=== PATIENT | female | born 1965 | race Caucasian/White ===

== ENCOUNTER 2024-03-10 17:58 | Emergency (ER) | payer OTHER, SELFPAY ==
--- NOTE | ~2024-03-10 | CT_ITS ---
EXAMINATION: CTA chest PE protocol DATE: 03/11/2024 02:12 INDICATION: Chest pain. Back pain. Shortness of breath. TECHNIQUE: Computed tomography angiography (CTA) of the chest was performed with 100 mL Omnipaque-350 intravenous contrast timed to evaluate the pulmonary arteries. Coronal maximum intensity projection 3D-reconstructions were created by the technologist. Automated exposure control and iterative reconst ruction technique were employed. The dose-length product was 372.81 mGy-cm. COMPARISON: CT abdomen and pelvis 01/01/2012 FINDINGS: There is scarring in the paramediastinal upper lobes and superior segments of the lower lob es. There are centrilobular nodules and tree-in-bud opacities in left upper lobe and left lower lobe, consistent with pneumonia. No pericardial effusion. There are nodules in the thyroid measuring up to 1.7 cm. The heart size is normal. No pericardial effusion. There are coronary artery calcifications. There is no pulmonary embolus. There is a small sliding hiatal hernia. There is a 1.6 cm hypodense m ass in the spleen. There is severe cervical spondylosis and moderate thoracic spondylosis. IMPRESSION: 1. Pneumonia involving left upper lobe and left lower lobe. 2. Thyroid nodules. Consider thyroid ultrasound for risk stratification. 3. 1.6 cm splenic mass, new from 01/01/12, which may be benign or malignant. Consider PET/CT. Reviewed, dictated and finalized at location A. BALL PLAYER IMPRESSION: 1. Pneumonia involving left upper lobe and left lower lobe. 2. Thyroid nodules. Consider thyroid ultrasound for risk stratification. 3. 1.6 cm splenic mass, new from 01/01/12, which may be benign or malignant. Co nsider PET/CT.
--- NOTE | ~2024-03-10 | XR_ITS ---
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 RESULT: Lines, tubes, and devices: Cholecystectomy clips. Lungs and pleura: Clear. Cardiomediastinal silhouette: Stable. Other: No acute osseous or upper abdominal finding. IMPRESSION: No acute cardiopulmonary process. Reviewed, dictated and finalized at location K. SIT PLANNING DIRECTOR
[2024-03-10 18:00] VITALS: BP 158/93; PULSE 113; RESP 20; TEMP 36.7; O2SAT 98
--- NOTE | 2024-03-10 18:00 | ECG_ITS ---
Test Date: 2024-03-10 18:17:33 Measurements Intervals Maribel Rate: 114 P: 51 IN: 165 QRS: 1 QRSD: 155 T: 90 QT: 367 QTc: 507 Interpretive Statements SINUS TACHYCARDIA LEFT BUNDLE BRANCH BLOCK [120+ ms QRS DURATION, 80+ ms Q/S IN V1/V2, 85+ ms R IN I/aVL/V5/V6] ABNORMAL ECG Electronically Signed On 03-11-2024 17:05:43 ENVIRONMENTAL TEST TECHNICIAN by Naif Goemz M.D.
--- NOTE | 2024-03-10 18:10 | ED_ITS ---
HPI - Chest Pain General Chief Complaint: Chest Pain <Kusum Brunson PA-C - Last Filed: 03/14/24 19:55> Stated Complaint: CP <Kusum Brunson PA-C - Last Filed: 03/14/24 19:55> Time Seen by Provider: 03/10/24 18:11 <Kusum Brunson PA-C - Last Filed: 03/14/24 19:55> Focused HPI: this is a 59-year-old female that presents to the emergency department for chest pain. Ongoing over the last hour. Reports substernal chest pain radiating into the left side of her chest. Reports shortness of breath. Reports she has been sick for a week and a half. Reports a cough. GENERAL: Uncomfortable, well-nourished, and in no acute distress. HEAD: Normocephalic, atraumatic. CHEST: No respiratory distress. HEART: Regular rate NEURO: ?Alert and oriented x3. Patient screened in triage and initial orders placed.? ?Additional care and disposition to be based upon?diagnostic testing and treatment. <Kusum Brunson PA-C - Last Filed: 03/14/24 19:55> Focused HPI: this is a 59-year-old female that presents to the emergency department for chest pain. Ongoing over the last hour. Reports substernal chest pain radiating into the left side of her chest. Reports shortness of breath. Reports she has been sick for a week and a half. Reports a cough. GENERAL: Uncomfortable, well-nourished, and in no acute distress. HEAD: Normocephalic, atraumatic. CHEST: No respiratory distress. HEART: Regular rate NEURO: ?Alert and oriented x3. Patient screened in triage and initial orders placed.? ?Additional care and disposition to be based upon?diagnostic testing and treatment. <AXEL Hoang Last Filed: 03/11/24 03:24> Source: patient <AXEL Hoang Last Filed: 03/11/24 03:24> Mode of arrival: ambulatory <AXEL Hoang Last Filed: 03/11/24 03:24> Limitations: no limitations <Kathy Garcia PA-C - Last Filed: 03/11/24 03:24> History of Present Illness HPI narrative: Agree with above HPI. Reports has been sick since 02/28. Reported chest pain was radiating into her back as well. States chest pain did not begin until today. Is resolved currently. Has been feeling short of breath, cough, congestion, no recent fevers since the beginning of her illness. Did report nausea and vomiting at the beginning of her illness as well, denies current nausea, denies abdominal pain. Patient reports she has not taken any of her normal medications and since she has been ill. History of CHF, LBBB. <Kathy Garcia PA-C - Last Filed: 03/11/24 03:24> Related Data Home Medications: Home Medications ?Medication ?Instructions ?Recorded ?Confirmed ?Last Taken ?Type aspirin 81 mg tablet,delayed 81 mg PO DAILY 08/27/21 02/29/24 Unknown History release atorvastatin 40 mg tablet 40 mg PO DAILY 08/27/21 02/29/24 Unknown History bupropion HCl 300 mg 24 hr tablet, 300 mg PO QAM 08/27/21 02/29/24 Unknown History extended release dapagliflozin propanediol 10 mg 10 mg PO DAILY 08/27/21 02/29/24 Unknown History tablet ergocalciferol (vitamin D2) 1,250 1,250 mcg PO WEEKLY 08/27/21 02/29/24 Unknown History mcg (50,000 unit) capsule isosorbide mononitrate 30 mg 30 mg PO DAILY 08/27/21 02/29/24 Unknown History tablet,extended release 24 hr losartan 50 mg tablet 50 mg PO DAILY 08/27/21 02/29/24 Unknown History metoprolol succinate 100 mg 100 mg PO DAILY 08/27/21 02/29/24 Unknown History tablet,extended release 24 hr ondansetron HCl 4 mg tablet 4 mg PO Q8H 08/27/21 02/29/24 Unknown History pantoprazole 40 mg tablet,delayed 40 mg PO QAM 08/27/21 02/29/24 Unknown History release spironolactone 25 mg tablet 25 mg PO DAILY 08/27/21 02/29/24 Unknown History valacyclovir 1 gram tablet 1,000 mg PO DAILY 08/27/21 02/29/24 Unknown History aspirin 81 mg tablet,delayed 81 mg PO DAILY 02/24/24 02/29/24 Unknown History release cetirizine 10 mg capsule (Zyrtec) 10 mg PO DAILY PRN 02/24/24 02/29/24 Unknown History divalproex 125 mg tablet,delayed 125 mg PO BID 02/24/24 02/29/24 Unknown History release (Depakote) vitamin B12 0.5 mg-folic acid 1 mg 1 tablet PO DAILY 02/24/24 02/29/24 Unknown History tablet <Kusum Brunson PA-C - Last Filed: 03/14/24 19:55> Allergies/Adverse Reactions: Allergies Allergy/AdvReac Type Severity Reaction Status Date / Time codeine Allergy Severe Vomiting Verified 02/24/24 12:56 hydrocodone Allergy Mild Vomiting Verified 02/24/24 12:56 Penicillins Allergy Unknown Unknown Verified 02/24/24 12:56 <Kusum Brunson PA-C - Last Filed: 03/14/24 19:55> Review of Systems 2 Review of Systems: All systems reviewed & are unremarkable except as noted in HPI. <Kathy Garcia PA-C - Last Filed: 03/11/24 03:24> All systems reviewed & are unremarkable except as noted in HPI and below < Kathy Garcia PA-C - Last Filed: 03/11/24 03:24> [facility] Past Medical History Medical History: Medical History Screening mammogram, encounter for Depression H/O thyroid nodule Umbilical hernia GERD (gastroesophageal reflux disease) Left bundle branch block IBS (irritable bowel syndrome) <Kusum Brunson PA-C - Last Filed: 03/14/24 19:55> Surgical History Surgical History: Surgical History Hx of cholecystectomy (~03/16/08) History of orthopedic surgery (09/10/12) History of gynecological procedure (01/02/14) dx laparoscopy / hysteroscopy D&C S/P tendon repair (02/06/14) History of orthopedic surgery shoulder surgery <AXEL Whitt Last Filed: 03/14/24 19:55> Family History Family History: Family History Mother Cerebrovascular accident Diabetes mellitus Hypertension Father Diabetes mellitus Heart disease <Kusum Brunson PA-C - Last Filed: 03/14/24 19:55> Social History Social History: Social History Smoking status: Former smoker Alcohol intake: never Substance use: never Substance use type: does not use Do You Feel Safe in your Home?: Yes Lack of Transportation: No Lack of Food: Never True Current Housing: I Have Housing Concerned About Future Housing: No Difficulty Paying Gas/Electric Bills: No Difficulty Paying for Meds: No Currently Unemployed: No Education: Associate Degree Difficulty w/ Childcare or Family Care: No Living arrangements: other Additional living arrangements comments: Occupation/Education: retired Gender identity (if verbalized by the patient): Female Sexual Orientation (if Verbalized by the Patient): Straight or Heterosexual <Kusum Brunson PA-C - Last Filed: 03/14/24 19:55> Exam 2 Narrative: GENERAL: Mildly ill appearing, well-nourished, non-toxic, in no acute distress. HEAD: Normocephalic, atraumatic. RESPIRATORY: Airway patent, respirations nonlabored. Frequent coughing on exam, scant rhonchi in bases bilaterally, worse on left lung. CARDIOVASCULAR: Tachycardic with regular rhythm, positive murmur. Peripheral pulses intact. ABDOMINAL: Soft, nontender, nondistended. Normoactive BS. MUSCULOSKELETAL: Moves all extremities. No gross deformities. SKIN: Warm, dry, normal color. NEURO: A&O X3. Speech clear. Cranial nerves II-XII grossly intact. Steady gait. No ataxic movements. PSYCHIATRIC: Appropriate mood and affect. Normal interaction. <Kathy Garcia PA-C - Last Filed: 03/11/24 03:24> Course PHOTOENGRAVING PRINTER/PA Physician Supervision For this patient encounter, I reviewed the PHOTOENGRAVING PRINTER or PA documentation, treatment plan, and medical decision making; and I had [id number] time with this patient. <Ariel Donis MD - Last Filed: 03/11/24 05:37> Vital Signs Vital signs: Vital Signs Temperature 98.1 F 03/10/24 18:00 Pulse Rate 113 H 03/10/24 18:00 Respiratory Rate 20 03/10/24 18:00 Blood Pressure 158/93 H 03/10/24 18:00 Pulse Oximetry 98 03/10/24 18:00 Oxygen Delivery Room Air 03/10/24 18:00 Temperature 98.9 F 03/11/24 02:06 Pulse Rate 73 03/11/24 02:06 Respiratory Rate 14 03/11/24 02:06 Blood Pressure 122/67 03/11/24 02:06 Pulse Oximetry 99 03/11/24 03:55 Oxygen Delivery Room Air 03/11/24 03:55 <Kusum Brunson PA-C - Last Filed: 03/14/24 19:55> Vital Signs Temperature 98.1 F 03/10/24 18:00 Pulse Rate 113 H 03/10/24 18:00 Respiratory Rate 20 03/10/24 18:00 Blood Pressure 158/93 H 03/10/24 18:00 Pulse Oximetry 98 03/10/24 18:00 Oxygen Delivery Room Air 03/10/24 18:00 Temperature 98.9 F 03/11/24 02:06 Pulse Rate 73 03/11/24 02:06 Respiratory Rate 14 03/11/24 02:06 Blood Pressure 122/67 03/11/24 02:06 Pulse Oximetry 99 03/11/24 03:55 Oxygen Delivery Room Air 03/11/24 03:55 <Kathy Garcia PA-C - Last Filed: 03/11/24 03:24> Vital Signs Temperature 98.1 F 03/10/24 18:00 Pulse Rate 113 H 03/10/24 18:00 Respiratory Rate 20 03/10/24 18:00 Blood Pressure 158/93 H 03/10/24 18:00 Pulse Oximetry 98 03/10/24 18:00 Oxygen Delivery Room Air 03/10/24 18:00 Temperature 98.9 F 03/11/24 02:06 Pulse Rate 73 03/11/24 02:06 Respiratory Rate 14 03/11/24 02:06 Blood Pressure 122/67 03/11/24 02:06 Pulse Oximetry 99 03/11/24 03:55 Oxygen Delivery Room Air 03/11/24 03:55 <Ariel Donis MD - Last Filed: 03/11/24 05:37> MDM - Chest Pain MDM Narrative Medical decision making narrative: Patient presented to ED with almost 2 history of URI, reporting persistent cough, shortness of breath, developed chest and back pain today. Chest pain currently resolved. Patient initially mildly tachycardic upon arrival. This was improved by the time of my evaluation. Fluids initiated. EKG with chronic left bundle-branch block. No significant ST changes otherwise. Patient does have known chronic LBBB, no records to compare to in our system however. Troponin is undetectable x2. BNP is within normal range. Chest x-ray is clear. CBC with white blood cell count of 13.2. Potassium slightly low at 3.1, oral replacement given. Magnesium is within normal range. Otherwise stable electrolytes and kidney function. Viral swabs are negative. CTA of chest was obtained to rule out PE or other cardiopulmonary abnormality. She does have Hx of PE r/t previous COVID 19. Not currently on anticoagulation. Care signed out to Dr. Donis at shift change pending STAT RAD CTA results. <Kathy Garcia PA-C - Last Filed: 03/11/24 03:24> Patient presented to ED with almost 2 history of URI, reporting persistent cough, shortness of breath, developed chest and back pain today. Chest pain currently resolved. Patient initially mildly tachycardic upon arrival. This was improved by the time of my evaluation. Fluids initiated. EKG with chronic left bundle-branch block. No significant ST changes otherwise. Patient does have known chronic LBBB, no records to compare to in our system however. Troponin is undetectable x2. BNP is within normal range. Chest x-ray is clear. CBC with white blood cell count of 13.2. Potassium slightly low at 3.1, oral replacement given. Magnesium is within normal range. Otherwise stable electrolytes and kidney function. Viral swabs are negative. CTA of chest was obtained to rule out PE or other cardiopulmonary abnormality. She does have Hx of PE r/t previous COVID 19. Not currently on anticoagulation. Care signed out to Dr. Donis at shift change pending STAT RAD CTA results. CTA showed no evidence of pulmonary embolism. There was evidence of atypical infection or aspiration patient does have some a thyroid nodules recommended follow-up with a thyroid ultrasound <Ariel Donis MD - Last Filed: 03/11/24 05:37> Medical Records Data Attestation: I reviewed the patient's medical records. <Kathy Garcia PA-C - Last Filed: 03/11/24 03:24> Lab Data Attestation: I reviewed the patient's lab results. <Kathy Garcia PA-C - Last Filed: 03/11/24 03:24> Result diagrams: 03/10/24 18:20 03/10/24 18:20 <Kusum Brunson PA-C - Last Filed: 03/14/24 19:55> Labs: Lab Results 03/10/24 03/10/24 Range/Units 18:20 22:57 WBC 13.2 H (4.5-10.0) K/mm3 RBC 4.37 (4.2-5.4) M/mm3 Hgb 12.8 (12.0-15.0) g/dL Hct 37.7 (37.0-47.0) % MCV 86.3 (80-100) fl MCH 29.3 (26-34) pg MCHC 34.0 (32-36) g/dl RDW 13.4 (11.5-14.5) % Plt Count 611 H (150-375) k/mm3 MPV 8.6 (7.4-10.4) fl Immature Gran % (Auto) 0.5 (0-0.5) % Neut % (Auto) 73.5 H (45.5-73.1) % Lymph % (Auto) 19.1 (18.3-44.2) % [place] % (Auto) 5.7 (2.6-8.5) % Eos % (Auto) 0.8 (0-4.4) % Baso % (Auto) 0.4 (0.2-1.2) % Lymph # (Auto) 2.52 (0.9-3.2) K/mm3 [place] # (Auto) 0.8 H (0.1-0.6) K/mm3 Eos # (Auto) 0.1 (0-0.3) K/mm3 Baso # (Auto) 0.1 (0.0-0.1) K/mm3 Abs Immat Gran (auto) 0.07 H (0.00-0.031) K/mm3 Absolute Neuts (auto) 9.7 H (1.3-6.7) K/mm3 Absolute Nucleated RBC 0.000 (0.0-0.012) K/mm3 Nucleated RBC % 0.0 (0.0-0.2) % PT 13.1 (11.1-14.7) Seconds INR 1.0 APTT 25.2 (22.3-36.8) Seconds Sodium 140 (137-145) mmol/L Potassium 3.1 L (3.4-5.0) mmol/L Chloride 108 H (98-107) mmol/L Carbon Dioxide 27 (22-30) mmol/L Anion Gap 5 (4-12) mmol/L BUN 13 (7-17) mg/dL Creatinine 0.60 L (0.7-1.0) mg/dL Estim Creat Clear Calc Not Reportable Estimated GFR > 60 (59 - ) Glucose 135 H (65-110) mg/dL Calcium 8.9 (8.4-10.2) mg/dL Magnesium 1.9 (1.6-2.3) mg/dL Total Bilirubin 0.3 (0.2-1.3) mg/dL AST 39 H (14-36) U/L ALT 32 (6-35) U/L Alkaline Phosphatase 90 (38-126) U/L Troponin I < 0.012 < 0.012 (0.000-0.034) ng/mL NT-Pro-B Natriuret Pep 169 H (19.9-100) pg/mL Total Protein 8.0 (6.3-8.2) g/dL Albumin 3.8 (3.5-5.1) g/dL Lipase 88 (23-300) U/L Influenza A (RT-PCR) Negative (Negative) Influenza B (RT-PCR) Negative (Negative) RSV (RT-PCR) Negative (Negative) SARS-CoV-2 RNA (RT-PCR) Negative (Negative) <Kusum Brunson PA-C - Last Filed: 03/14/24 19:55> Lab Results 03/10/24 03/10/24 Range/Units 18:20 22:57 WBC 13.2 H (4.5-10.0) K/mm3 RBC 4.37 (4.2-5.4) M/mm3 Hgb 12.8 (12.0-15.0) g/dL Hct 37.7 (37.0-47.0) % MCV 86.3 (80-100) fl MCH 29.3 (26-34) pg MCHC 34.0 (32-36) g/dl RDW 13.4 (11.5-14.5) % Plt Count 611 H (150-375) k/mm3 MPV 8.6 (7.4-10.4) fl Immature Gran % (Auto) 0.5 (0-0.5) % Neut % (Auto) 73.5 H (45.5-73.1) % Lymph % (Auto) 19.1 (18.3-44.2) % [place] % (Auto) 5.7 (2.6-8.5) % Eos % (Auto) 0.8 (0-4.4) % Baso % (Auto) 0.4 (0.2-1.2) % Lymph # (Auto) 2.52 (0.9-3.2) K/mm3 [place] # (Auto) 0.8 H (0.1-0.6) K/mm3 Eos # (Auto) 0.1 (0-0.3) K/mm3 Baso # (Auto) 0.1 (0.0-0.1) K/mm3 Abs Immat Gran (auto) 0.07 H (0.00-0.031) K/mm3 Absolute Neuts (auto) 9.7 H (1.3-6.7) K/mm3 Absolute Nucleated RBC 0.000 (0.0-0.012) K/mm3 Nucleated RBC % 0.0 (0.0-0.2) % PT 13.1 (11.1-14.7) Seconds INR 1.0 APTT 25.2 (22.3-36.8) Seconds Sodium 140 (137-145) mmol/L Potassium 3.1 L (3.4-5.0) mmol/L Chloride 108 H (98-107) mmol/L Carbon Dioxide 27 (22-30) mmol/L Anion Gap 5 (4-12) mmol/L BUN 13 (7-17) mg/dL Creatinine 0.60 L (0.7-1.0) mg/dL Estim Creat Clear Calc Not Reportable Estimated GFR > 60 (59 - ) Glucose 135 H (65-110) mg/dL Calcium 8.9 (8.4-10.2) mg/dL Magnesium 1.9 (1.6-2.3) mg/dL Total Bilirubin 0.3 (0.2-1.3) mg/dL AST 39 H (14-36) U/L ALT 32 (6-35) U/L Alkaline Phosphatase 90 (38-126) U/L Troponin I < 0.012 < 0.012 (0.000-0.034) ng/mL NT-Pro-B Natriuret Pep 169 H (19.9-100) pg/mL Total Protein 8.0 (6.3-8.2) g/dL Albumin 3.8 (3.5-5.1) g/dL Lipase 88 (23-300) U/L Influenza A (RT-PCR) Negative (Negative) Influenza B (RT-PCR) Negative (Negative) RSV (RT-PCR) Negative (Negative) SARS-CoV-2 RNA (RT-PCR) Negative (Negative) <Kathy Garcia PA-C - Last Filed: 03/11/24 03:24> Lab Results 03/10/24 03/10/24 Range/Units 18:20 22:57 WBC 13.2 H (4.5-10.0) K/mm3 RBC 4.37 (4.2-5.4) M/mm3 Hgb 12.8 (12.0-15.0) g/dL Hct 37.7 (37.0-47.0) % MCV 86.3 (80-100) fl MCH 29.3 (26-34) pg MCHC 34.0 (32-36) g/dl RDW 13.4 (11.5-14.5) % Plt Count 611 H (150-375) k/mm3 MPV 8.6 (7.4-10.4) fl Immature Gran % (Auto) 0.5 (0-0.5) % Neut % (Auto) 73.5 H (45.5-73.1) % Lymph % (Auto) 19.1 (18.3-44.2) % [place] % (Auto) 5.7 (2.6-8.5) % Eos % (Auto) 0.8 (0-4.4) % Baso % (Auto) 0.4 (0.2-1.2) % Lymph # (Auto) 2.52 (0.9-3.2) K/mm3 [place] # (Auto) 0.8 H (0.1-0.6) K/mm3 Eos # (Auto) 0.1 (0-0.3) K/mm3 Baso # (Auto) 0.1 (0.0-0.1) K/mm3 Abs Immat Gran (auto) 0.07 H (0.00-0.031) K/mm3 Absolute Neuts (auto) 9.7 H (1.3-6.7) K/mm3 Absolute Nucleated RBC 0.000 (0.0-0.012) K/mm3 Nucleated RBC % 0.0 (0.0-0.2) % PT 13.1 (11.1-14.7) Seconds INR 1.0 APTT 25.2 (22.3-36.8) Seconds Sodium 140 (137-145) mmol/L Potassium 3.1 L (3.4-5.0) mmol/L Chloride 108 H (98-107) mmol/L Carbon Dioxide 27 (22-30) mmol/L Anion Gap 5 (4-12) mmol/L BUN 13 (7-17) mg/dL Creatinine 0.60 L (0.7-1.0) mg/dL Estim Creat Clear Calc Not Reportable Estimated GFR > 60 (59 - ) Glucose 135 H (65-110) mg/dL Calcium 8.9 (8.4-10.2) mg/dL Magnesium 1.9 (1.6-2.3) mg/dL Total Bilirubin 0.3 (0.2-1.3) mg/dL AST 39 H (14-36) U/L ALT 32 (6-35) U/L Alkaline Phosphatase 90 (38-126) U/L Troponin I < 0.012 < 0.012 (0.000-0.034) ng/mL NT-Pro-B Natriuret Pep 169 H (19.9-100) pg/mL Total Protein 8.0 (6.3-8.2) g/dL Albumin 3.8 (3.5-5.1) g/dL Lipase 88 (23-300) U/L Influenza A (RT-PCR) Negative (Negative) Influenza B (RT-PCR) Negative (Negative) RSV (RT-PCR) Negative (Negative) SARS-CoV-2 RNA (RT-PCR) Negative (Negative) <Ariel Donis MD - Last Filed: 03/11/24 05:37> Imaging Data Attestation: I personally reviewed and interpreted this imaging study as follows: < Kathy Garcia PA-C - Last Filed: 03/11/24 03:24> Radiologist's impression: ITS Impressions Chest X-Ray 03/10/24 18:37 IMPRESSION: No acute cardiopulmonary process. Chest CTA 03/11/24 06:02 IMPRESSION: 1. Pneumonia involving left upper lobe and left lower lobe. 2. Thyroid nodules. Consider thyroid ultrasound for risk stratification. 3. 1.6 cm splenic mass, new from 01/01/12, which may be benign or malignant. Consider PET/CT. <Kusum Brunson PA-C - Last Filed: 03/14/24 19:55> ECG Data EKG #1: Attestation: I personally reviewed and interpreted this ECG as follows: <Kathy Garcia PA-C - Last Filed: 03/11/24 03:24> ECG completion date: 03/10/24 <Kathy Garcia PA-C - Last Filed: 03/11/24 03:24> ECG completion time: 18:17 <Kathy Garcia PA-C - Last Filed: 03/11/24 03:24> EKG Interpretation: tachycardia (114), sinus rhythm, non-specific ST changes and LBBB < Kathy Garcia PA-C - Last Filed: 03/11/24 03:24> Critical Care Time Critical Care Time Critical Care Time: No <Kusum Brunson PA-C - Last Filed: 03/14/24 19:55> Discharge Plan Discharge Clinical Impression: Atypical chest pain, Thyroid nodule Upper respiratory infection Qualifiers: URI type: unspecified URI Qualified Code(s): J06.9 - Acute upper respiratory infection, unspecified (Ruled Out): Dysuria <Kusum Brunson PA-C - Last Filed: 03/14/24 19:55> Patient Disposition: Home, Self-Care <AXEL Whitt Last Filed: 03/14/24 19:55> Condition: Stable <AXEL Whitt Last Filed: 03/14/24 19:55> Instructions: Antibiotic Form, Chest Pain (ED), Upper Respiratory Infection (ED), Cold Symptoms (ED) <Kusum Brunson PA-C - Last Filed: 03/14/24 19:55> Additional Instructions: Take antibiotics as prescribed. Stay well-hydrated at home. Recommend electrolyte rich fluids, Gatorade, Pedialyte, body armor. Zofran as needed for nausea. Tessalon Perles as needed for cough. Tylenol and Ibuprofen for discomfort and/or fevers. Recommend xoth-sjb-guxbzyr cough and cold medicines for symptom relief, Delsym, Mucinex, DayQuil, NyQuil, Sudafed, Robitussin, TheraFlu. Follow with primary care doctor upon resolution of symptoms. Return to the ED if you experience chest pain, difficulty breathing, unable to keep down food or drink, severe pain, or any other symptoms of concern. The CT scan showed that you have a thyroid nodule it is recommended you follow- up with your primary care provider as they may need to do a thyroid ultrasound at some point in the near future <AXEL Whitt Last Filed: 03/14/24 19:55> Patient Language: Andorran <AXEL Whitt Last Filed: 03/14/24 19:55> Prescriptions: New benzonatate 200 mg capsule 200 mg PO TID PRN (Reason: cough) Qty: 15 0RF doxycycline monohydrate 100 mg tablet 100 mg PO BID 7 Days Qty: 14 0RF ondansetron 4 mg tablet,disintegrating 4 mg PO Q8H PRN (Reason: nausea and vomiting) Qty: 15 0RF No Action losartan 50 mg tablet 50 mg PO DAILY atorvastatin 40 mg tablet 40 mg PO DAILY valacyclovir 1 gram tablet 1,000 mg PO DAILY ondansetron HCl 4 mg tablet 4 mg PO Q8H isosorbide mononitrate 30 mg tablet extended release 24 hr 30 mg PO DAILY metoprolol succinate 100 mg tablet extended release 24 hr 100 mg PO DAILY aspirin 81 mg tablet,delayed release (DR/EC) 81 mg PO DAILY spironolactone 25 mg tablet 25 mg PO DAILY pantoprazole 40 mg tablet,delayed release (DR/EC) 40 mg PO QAM ergocalciferol (vitamin D2) 1,250 mcg (50,000 unit) capsule 1,250 mcg PO WEEKLY bupropion HCl 300 mg tablet extended release 24 hr 300 mg PO QAM dapagliflozin propanediol 10 mg tablet 10 mg PO DAILY divalproex [Depakote] 125 mg tablet,delayed release (DR/EC) 125 mg PO BID Zyrtec 10 mg capsule 10 mg PO DAILY PRN vitamin [id number] acid 0.5-1 mg tablet 1 tablet PO DAILY aspirin 81 mg tablet,delayed release (DR/EC) 81 mg PO DAILY <Kusum Brunson PA-C - Last Filed: 03/14/24 19:55> Follow-up/Referrals: Marlena,Newton Molina MD [Primary Care Provider] - <Kusum Brunson PA-C - Last Filed: 03/14/24 19:55> Time of Disposition: 05:40 <Kusum Brunson PA-C - Last Filed: 03/14/24 19:55> 05:40 <Kathy Garcia PA-C - Last Filed: 03/11/24 03:24> 05:40 <Ariel Donis MD - Last Filed: 03/11/24 05:37> Sign Out Sign Out Data: Patient Sign Out occurred on 03/11/24 at 04:06. Patient's care was discussed, and care was transferred from Kathy Garcia PA-C to Ariel Donis MD. <Kusum Brunson PA-C - Last Filed: 03/14/24 19:55> Quality HEART score for chest pain patients History: moderately suspicious <Kathy Garcia PA-C - Last Filed: 03/11/24 03:24> ECG: non specific repolarization disturbance/LBTB/PM <AYANA Hoang - Last Filed: 03/11/24 03:24> Age: > 45 and < 65 years <Kathy Garcia PA-C - Last Filed: 03/11/24 03:24> Risk factors: 1 or 2 risk factors <Kathy Garcia PA-C - Last Filed: 03/11/24 03:24> Troponin: < or = to 1x normal limit <Kathy Garcia PA-C - Last Filed: 03/11/24 03:24> Heart score: 4 <Kusum Brunson PA-C - Last Filed: 03/14/24 19:55> 4 <Kathy Garcia PA-C - Last Filed: 03/11/24 03:24> 4 <Ariel Donis MD - Last Filed: 03/11/24 05:37>
[2024-03-10] MEDS: ASPIRIN 81 MG CHEWABLE TABLET 324 MG PO (18:13)
[2024-03-10 18:28] LABS: Basophils Absolute Auto 0.1 K/mm3 (0.0-0.1); Basophils Percent Auto 0.4 % (0.2-1.2); Eosinophils Absolute Auto 0.1 K/mm3 (0-0.3); Eosinophils Percent Auto 0.8 % (0-4.4); Hematocrit 37.7 % (37.0-47.0); Hemoglobin 12.8 g/dL (12.0-15.0); Immature Granulocyte Absolute 0.07 K/mm3 (0.00-0.031); Immature Granulocyte Percent A 0.5 % (0-0.5); Lymphocytes Absolute Auto 2.52 K/mm3 (0.9-3.2); Lymphocytes Percent Auto 19.1 % (18.3-44.2); Mean Corpuscular Hemoglobin 29.3 pg (26-34); Mean Corpuscular Volume 86.3 fl (80-100); Mean Platelet Volume 8.6 fl (7.4-10.4); Monocytes Absolute Auto 0.8 K/mm3 (0.1-0.6); Monocytes Percent Auto 5.7 % (2.6-8.5); Neutrophils Absolute Auto 9.7 K/mm3 (1.3-6.7); Neutrophils Percent Auto 73.5 % (45.5-73.1); Platelet Count Result 611 k/mm3 (150-375); Red Blood Count 4.37 M/mm3 (4.2-5.4); Red Cell Distribution Width 13.4 % (11.5-14.5); White Blood Count 13.2 K/mm3 (4.5-10.0)
[2024-03-10 18:40] LABS: Alanine Aminotransferase 32 U/L (6-35); Albumin Level 3.8 g/dL (3.5-5.1); Alkaline Phosphatase 90 U/L (38-126); Anion Gap 5 mmol/L (4-12); Aspartate Amino Transferase 39 U/L (14-36); Bilirubin,Total 0.3 mg/dL (0.2-1.3); Blood Urea Nitrogen 13 mg/dL (7-17); Calcium 8.9 mg/dL (8.4-10.2); Carbon Dioxide 27 mmol/L (22-30); Chloride 108 mmol/L (98-107); Estimated Glomerular Filt Rate > 60; Glucose 135 mg/dL (65-110); Lipase 88 U/L (23-300); Potassium 3.1 mmol/L (3.4-5.0); Sodium 140 mmol/L (137-145)
[2024-03-10 18:44] LABS: Partial Thromboplastin Time 25.2 Seconds (22.3-36.8); Prothrombin Time 13.1 Seconds (11.1-14.7)
[2024-03-10 18:51] LABS: NT Pro B Type Natriuretic Pept 169 pg/mL (19.9-100); Troponin I < 0.012 ng/mL (0.000-0.034)
[2024-03-10 19:04] LABS: Influenza A QL RT-PCR Negative (Negative); Influenza B QL RT-PCR Negative (Negative); RSV RNA, RT-PCR Negative (Negative); SARS-CoV-2 RNA PCR Negative (Negative)
--- NOTE | 2024-03-10 22:57 | ECG_ITS ---
Test Date: 2024-03-10 22:57:57 Measurements Intervals [place] Rate: 100 P: 55 MO: 167 QRS: -2 QRSD: 158 T: 96 QT: 396 QTc: 512 Interpretive Statements SINUS TACHYCARDIA LEFT BUNDLE BRANCH BLOCK [120+ ms QRS DURATION, 80+ ms Q/S IN V1/V2, 85+ ms R IN I/aVL/V5/V6] Compared to ECG 03/10/2024 18:17:33 No significant changes Electronically Signed On 03-11-2024 17:14:18 [employer] by Naif Gomez M.D.
[2024-03-10 23:25] LABS: Troponin I < 0.012 ng/mL (0.000-0.034)
[2024-03-11 01:55] LABS: Magnesium 1.9 mg/dL (1.6-2.3)
[2024-03-11] MEDS: POTASSIUM CHLORIDE 20 MEQ ER TABLET 40 MEQ PO (01:56)
[2024-03-11] MEDS: SODIUM CHLORIDE 0.9% IV 1,000 ML 999 ML IV CONT (01:58)
[2024-03-11 02:06] VITALS: BP 122/67; PULSE 73; RESP 14; TEMP 37.2; O2SAT 100
[2024-03-11] MEDS: BENZONATATE 100 MG CAPSULE 200 MG PO (03:14)
[2024-03-11 03:55] VITALS: O2SAT 99
--- OUTSIDE RECORDS SUMMARY | 2024-03-18 04:57 | XMS_ITS | Clinical Summary ---
Author Organization [facility] Address [address] [place] [address] Phone Care Team Providers Care Making Department Preparer Name Role Phone Newton Mendiola MD Primary Care Provider [phone] Allergies Active Allergy Reactions Criticality Noted Date Comments Codeine Vomiting 07/22/2017 Penicillins Unknown 07/22/2017 Medications rizatriptan (MAXALT-[employer] ENGINEER) 10 MG TABLET DISPERSIBLE Take 10 mg by mouth once as needed. Active Aspirin 81 MG Tablet Take 81 mg by mouth daily. Active pantoprazole (PROTONIX) 40 MG Tablet Delayed Response Take 40 mg by mouth daily. Active metoprolol Succinate (TOPROL-XL) 25 MG TABLET SR 24 HR Take 25 mg by mouth daily. Active losartan (COZAAR) 25 MG Tablet Take 25 mg by mouth daily. Active buPROPion (WELLBUTRIN) 300 MG TABLET SR 24 HR XL tablet Take 300 mg by mouth every morning. Active furosemide (LASIX) 20 MG Tablet Take 1 Tab by mouth daily. 30 Tab 07/22/2017 Active spironolactone (ALDACTONE) 25 MG Tablet Take 1 Tab by mouth daily. 90 Tab 07/22/2017 Active Active Problems Problem Noted Date Diagnosed Date Acute chest pain 07/22/2017 Left bundle branch block 07/22/2017 Chronic systolic (congestive) heart failure 11/2017 Hodgkin's disease in remission 07/22/2017 Gastroesophageal reflux disease without esophagi tis 07/22/2017 Pure hypercholesterolemia 07/22/2017 Family History Medical History Relation Name Comments Congestive Heart Failure Father Diabetes Father Heart Attack Father Hypertension Father Diabetes Mother Hypertension Mother Stroke Mother Relation Name Status Comments Father Mother Social History Tobacco Use Types Packs/Day Years Used Date Smoking Tobacco: Former Cigarettes 0.5 12 Smokeless Tobacco: Never Alcohol Use Standard Drinks/Week Comments No 0 (1 standard drink = 0.6 oz pur e alcohol) Comments No Sex and Gender Information Value Date Recorded Sex Assigned at Not on file Legal Sex Female 2:49 AM CDT Gender Identity Not on file Sexual Orientation Not on file Last Filed Vital Signs Vital Sign Reading Time Taken Comments Blood Pressure 107/57 07/22/2017 7:18 AM CDT Pulse 75 07/22/2017 7:18 AM CDT Temperature 35.6 ??C (96.1 ??F) 07/22/2017 7:18 AM CD T Respiratory Rate 16 07/22/2017 7:18 AM CDT Oxygen Saturation 98% 07/22/2017 7:10 AM CDT Inhaled Oxygen Concentration - - Weight 83.1 kg (183 lb 3.2 oz) 07/22/2017 5:00 A M CDT Height 162.6 cm (5' 4 ) 07/22/2017 2:54 AM CDT Body Mass Index 31.45 07/22/2017 2:54 AM CDT Plan of Treatment Health Maintenance Due Date Last Done Comments Hepatitis C Virus (HCV) Screening 1965 TdaP Immunization 1965 SARS-COV-2 Immunization (#1) 1970 Pneumococcal Immunization Co mbined (1 of 2 - PCV) 1971 Hepatitis B Immunization (1 of 3 - 19+ 3-dose series) 01/17/1984 Zoster Immunization (1 of 2) 01/17/1984 Pap Smear 1986 Cervical Cancer Screening (CCS) 1995 HPV/Cotest 1995 Colonoscopy 2010 Colorectal Cancer Screening 2010 Cologuard 2015 Immunochemical Fecal Occult Blood 2015 Mammogram 2015 Influenza Immunization (Seas on Ended) 2023 Meningococcal Immunization (ACWY) Aged Out No longer eligible based on patient's age to complete this topic Rotavirus Immunization Aged Out No lo nger eligible based on patient's age to complete this topic Advance Directives * Full Code (Latest Code Status on File) Date Activated Date Inactivated Comments 07/22/2017 4:47 AM 07/22/2017 4:51 PM CPR-Full Treat ment: FULL ARREST: Attempt Resuscitation/CPR wit intubation and mechanical ventilation. PRE-ARREST: Use entire range of life support measures to stabilize the patient. Care Teams Making Department Preparer Relationship Specialty Start Date End Date Newton Mendiola MD PCP - General Internal Medicine 07/22/17
--- OUTSIDE RECORDS SUMMARY | 2024-03-18 04:57 | XMS_ITS | Referral Summary ---
Author Organization [facility] Address [address] [place] [address] Care Team Providers Care Aircraft Systems Technician Name Role Phone Newton Mendiola MD Primary Care Provider [phone] Sly Cade MD Unavailable [phone] Encounters Date Type Department Care Team Description 03/11/2024 Orders Only [facility] [address] [place] [address] Newton Mendiola MD 03/10/2024 Orders Only [facility] [address] [place] [address] Newton Mendiola MD 12/17/2023 2:15 PM CDT Office Visit [facility] [address] [place] [place] [phone] Faith Burroughs NP Acute middle ear effusion, right (Primary Dx) from Last 3 Months Allergies Active Allergy Reactions Criticality Noted Date Comments Codeine Other (See comments),Vomiting Low 07/22/2017 Reaction: RASH;, Sacubitril-Valsartan Nausea & Vomiting,Fatigue Low 03/02/2023 Hydrocodone Vomiting Low 02/19/2018 Penicillin Other (See comments) Low Reaction: UNKNOWN, Medications aspirin 81 mg tablet Take 1 tablet (81 mg total) by mouth daily Active cyanocobalamin, vitamin B-12, (VITAMIN B-12 ORAL) Take by mouth daily Active cetirizine (ZyrTEC) 10 mg tablet Take 1 tablet (10 mg total) by mouth daily Active ergocalciferol (VITAMIN D) 50,000 unit capsule TAKE 1 CAPSULE (50,000 UNITS TOTAL) BY MOUTH ONCE A WEEK FRIDAYS 12 capsule 1 3 Active losartan (COZAAR) 50 mg tablet Take 1 tablet (50 mg total) by mouth daily 90 tablet [address] (PROTONIX) 40 mg EC tablet TAKE 1 TABLET BY MOUTH EVERY DAY 90 tablet 4 3 Active spironolactone (ALDACTONE) 25 mg tablet TAKE 1 TABLET BY MOUTH EVERY DAY 90 tablet 3 4 Active metoprolol XL (TOPROL-XL) 100 mg 24 hr tablet TAKE 1 TABLET BY MOUTH EVERY DAY 90 tablet 3 4 Active atorvastatin (LIPITOR) 40 mg tablet Take 1 tablet (40 mg total) by mouth nightly 90 tablet 1 4 Active ondansetron (ZOFRAN) 4 mg tablet Take 1 tablet (4 mg total) by mouth every 8 (eight) hours as needed for nausea or vomiting 20 tablet [address] (DEPAKOTE) 125 mg EC tablet Take 1 tablet (125 mg total) by mouth 2 (two) times a day 180 tablet 1 4 Active Farxiga 10 mg tablet TAKE 1 TABLET BY MOUTH EVERY DAY 90 tablet 2 4 Active buPROPion XL (WELLBUTRIN XL) 300 mg 24 hr tablet TAKE 1 TABLET (300 MG TOTAL) BY MOUTH EVERY MORNING. 90 tablet 4 Active methylPREDNISol one (Medrol, Andres,) 4 mg DosepackIndicat ions:Acute middle ear effusion, right follow package directions 1 packet 4 Active fluticasone propionate (FLONASE) 50 mcg/actuation nasal sprayIndication s:Acute middle ear effusion, right Administer 2 sprays into each nostril daily 3 each 4 Active valACYclovir (VALTREX) 1 gram tablet TAKE 2 TABLETS BY MOUTH EVERY 12 HOURS FOR 1 DAY 12 tablet 1 4 Active Hospital, Clinic, or Other Facility Administered Medication Ordered Dose Route Frequency Start Date End Date Status perflutren protein-a (OPTISON) 3 mL in sodium chloride 0.9% 8 mL syringe 1 - 8 mL IV Once in imaging 09/19/2022 Active Active Problems Problem Noted Date Diagnosed Date Night sweats 12/09/2023 Assessment & Plan (12/09/2023 2:47 PM CDT): Check chest x-ray. Neck pain 12/09/2023 Assessment & Plan (12/09/2023 2:47 PM CDT): Check x-ray. Thyroid nodule 08/28/2023 Assessment & Plan (12/09/2023 2:47 PM CDT): Last ultrasound showed no change. 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 Assessment & Plan (01/17/2021 1:16 PM CDT): Likely embolic Allergic rhinitis 12/11/2020 Assessment & Plan (12/11/2020 3:17 PM CDT): Blood allergy testing - call with results CT sinus - call with results Flonase 2 sprays into each nostril while looking down over the sink, do not sniff in or blow nose after use for at least 30 minutes daily Switching to Cetirizine 10 mg daily (Zyrtec) Consider adding Pepcid if CT sinus clear Type 2 diabetes mellitus wit hout complication, without long-term current use of insulin ([facility]) 11/22/2020 Assessment & Plan (12/09/2023 2:47 PM CDT): A1c improved. Assessment & Plan (08/28/2023 11:17 AM CDT): Labs today Is going to resume her 0.25mg Ozempic weekly per Cardiology A1C 7% Assessment & Plan (08/27/2021 12:30 PM CDT): A1C stable at 6.2% If on 10mg Farxiga Assessment & Plan (11/22/2020 12:11 PM CDT): A1C 6.2% today Reviewed A1C meaning and goal with patient today, hand out provided with her info entered RD referral, briefly reviewed diet today Encouraged small amounts of activity and slowly building up as able Start metformin ER 500mg daily x 1-2 weeks then increase to 1000mg ER daily Recheck in 3 mo LV dysfunction 10/28/2018 LBBB (left bundle branch block) 10/28/2018 Mixed hyperlipidemia 10/28/2018 Assessment & Plan (12/09/2023 2:47 PM CDT): Stable. On lipid lowering medication Assessment & Plan (08/28/2023 11:18 AM CDT): Reviewed today, TC 148 LDL 90 TRG 103 HDL 37 Assessment & Plan (11/22/2020 12:12 PM CDT): Reviewed today, elevated Strong FHx and personal Hx of cardiomyopathy Trial atorvastatin 10 mg daily-recheck in 3 mo with A1C and CMP Activity as able, A1C control Chronic insomnia 10/28/2018 Chronic systolic (congestive) heart failure 11/2017 Gastroesophageal reflux disease without esophagi tis 07/22/2017 Cardiomyopathy 09/09/2016 Assessment & Plan (12/09/2023 2:47 PM CDT): Doing well follows with Cardiology Hypertension 09/09/2016 Assessment & Plan (12/09/2023 2:47 PM CDT): BP at target Assessment & Plan (01/15/2021 9:36 AM CDT): -Home regimen: Losartan 50mg daily, Metoprolol 100mg daily, Isosorbide 30mg daily and Spironolactone 25mg daily. -Held home Lisinopril and spironolactone while inpatient 2/2 normotension -Continue Metoprolol and Isosorbide -Q4 hrs VS Snoring 09/09/2016 Systolic dysfunction 09/09/2016 Insomnia 09/09/2016 Obesity with body mass index 30 or greater 07/31 Resolved Problems Problem Noted Date Diagnosed Date Resolved Date Laceration of right little f daniella, initial encounter 10/10/2021 08/28/2023 Overview (10/10/2021): Added automatically from request for surgery [id number] Abdominal pain 08/27/2021 08/28/2023 Assessment & Plan (08/27/2021 12:30 PM CDT): Labs, EGD/COLO COVID-19 virus infection 01/15/2021 Assessment & Plan (01/15/2021 9:38 AM CDT): Presented with recent COVID-19 infection (12/29/20) -Remained in COVID unit throughout this admission Hypokalemia 01/15/2021 08/27/2021 Assessment & Plan (01/15/2021 9:55 AM CDT): Patient with hypokalemia this admission -Potassium replaced -PCP follow-up at discharge for BMP check Left lower quadrant pain 01/14/2021 Assessment & Plan (01/15/2021 9:25 AM CDT): Pt recent COVID-19 infection (12/29/20) presents with LUQ pain x 1 day, prompting her to visit OSH ED on 01/10/2021. CT PE protocol demonstrated a dissection flap vs thrombus in the descending aorta just distal to the aortic isthmus, and a large exophytic mass off the spleen concern for infarct vs growth. Patient was ransferred to [facility] ED for further management by Vascular Surgery. On arrival to the ED palpable femoral, radial pulses, bilateral DP/PT multiphasic. Sensorimotor intact in all 4 extremities. -The patient was continued on hep gtt -Repeat CTA (01/13/21) with decrease in size of aortic clot as well as a splenic infarct -Stopped Hep gtt this morning. Transitioned to PO Eliquis Lesion of right ear 11/22/2020 08/28/19 22 Assessment & Plan (11/22/2020 12:13 PM CDT): Derm referral Grief at loss of child 11/22/202008/27 Assessment & Plan (11/22/2020 12:14 PM CDT): Strongly encouraged grief counseling Chest pain 05/20/2020 11/22/2020 Pure hypercholesterolemia 07/22/2017 Gasping for breath 09/09/2016 Hodgkin lymphoma 09/09/2016 11/22/2020 Elbow pain 09/01/2016 11/22/2020 Lateral epicondylitis of right elbow 09/01/2016 11/22/2020 Abnormal electrocardiography 07/21/2016 11/22/2020 Acute chest pain 07/21/2016 11/22/2020 Dyspnea on exertion 07/21/2016 11/23/19 21 Left bundle branch block 07/17/201611/2020 Abdominal pain, left lower quadrant 03/07/2011 11/22/2020 Immunizations Name Administration Dates Next Due Influenza, Trivalent, IM (MDV) 01/10/2014 Tdap 04/25/2023 Social History Tobacco Use Types Packs/Day Years Used Date Smoking Tobacco: Former Cigarettes 0.5 10 1 990 - 2000 Smokeless Tobacco: Never Tobacco Cessation:Counseling Given: Not Answered Alcohol Use Standard Drinks/Week Comments No 0 (1 standard drink = 0.6 oz pur e alcohol) Social Connection and Isolation Panel [NHANES] A nswer Date Recorded Frequency of Communication with Friends and Fami ly Not on file 2021 Frequency of Social Gatherings with Friends and Family Not on file 2021 Attends Hoahaoism Services Not on file 01/16 Active Member of Clubs or Organizations Not on f ile 2021 Attends Club or Organization Meetings Not on liliam e 2021 Are you , , di vorced, , never , or living with a partner? 2021 AUDIT-C Answer Date Recorded Q1: How often do you have a drink containing alcohol? Never 10/03/2021 Q2: How many drinks containi ng alcohol do you have on a typical day when you are drinking? Patient does not drink Q3: How often do you have si x or more drinks on one occasion? Never 10/03/2021 Overall Financial Resource Strain (CARDIA) Answe r Date Recorded How hard is it for you to pa y for the very basics like food, housing, medical care, and heating? Not very hard 2021 Hunger Vital Sign Answer Date Recorded Within the past 12 months, y ou worried that your food would run out before you got the money to buy more. Never true 01/17/20 21 Within the past 12 months, t he food you bought just didn't last and you didn't have money to get more. Never true 2021 PRAPARE - Transportation Answer Date Re corded In the past 12 months, has l ack of transportation kept you from medical appointments or from getting medications? No 05/2020 In the past 12 months, has l ack of transportation kept you from meetings, work, or from getting things needed for daily living? No 2021 Housing Stability Vital Sign Answer Robert e Recorded In the last 12 months, was t here a time when you were not able to pay the mortgage or rent on time? No 2021 In the last 12 months, how many places have you lived? 1 2021 In the last 12 months, was t here a time when you did not have a steady place to sleep or slept in a senior living (including now)? No 2021 Comments No Sex and Gender Information Value Date Recorded Sex Assigned at Not on file Legal Sex Female 7:55 AM FIELD CANE SCALE CLERK Gender Identity Not on file Sexual Orientation Not on file Last Filed Vital Signs Vital Sign Reading Time Taken Comments Blood Pressure 122/80 12/17/2023 2:23 PM CDT Pulse 69 12/17/2023 2:23 PM CDT Temperature 37 ??C (98.6 ??F) 12/17/2023 2:23 PM CDT Respiratory Rate 16 12/17/2023 2:23 PM CDT Oxygen Saturation 98% 12/17/2023 2:23 PM CDT Inhaled Oxygen Concentration - - Weight 79.4 kg (175 lb) 12/17/2023 2:23 PM CDT Height 162.6 cm (5' 4 ) 12/17/2023 2:23 PM CDT Body Mass Index 30.04 12/17/2023 2:23 PM CDT Plan of Treatment Scheduled Procedures Name Priority Associated Diagnoses Date/Ti me ESOPHAGOGASTRODUODENOSCOPY Nausea Colon cancer screening COLONOSCOPY Nausea Colon cancer screening Procedures Procedure Name Priority Date/Time Associated Diagnosis Comments SCAN - LABS 03/11/2024 8:48 AM FIELD CANE SCALE CLERK SCAN - RADIOLOGY/IMAGING 03/11/2024 6:22 AM FIELD CANE SCALE CLERK SCAN - LABS 03/11/2024 2:10 AM FIELD CANE SCALE CLERK SCAN - LABS 03/10/2024 10:15 PM FIELD CANE SCALE CLERK SCAN - LABS 03/10/2024 10:15 PM FIELD CANE SCALE CLERK SCAN - RADIOLOGY/IMAGING 03/10/2024 6:46 PM FIELD CANE SCALE CLERK POCT HEMOGLOBIN A1C Routine 12/09/2023 2 :02 PM CDT Type 2 diabetes mellitus without complication, without long-term current use of insulin (CMS/HCC) (HCC) ALBUMIN CREATININE RATIO, URINE Routine 08/28/2023 11:36 AM CDT Type 2 diabetes mellitus without complication, without long-term current use of insulin (CMS/HCC) (HCC) COMPREHENSIVE METABOLIC PANEL Routine 08/28/2023 11:29 AM CDT Type 2 diabetes mellitus without complication, without long-term current use of insulin ([facility]/HCC) (HCC) POCT LIPID PANEL Routine 08/28/2023 10:4 1 AM CDT Mixed hyperlipidemia Type 2 diabetes mellitus without complication, without long-term current use of insulin ([facility]/HCC) (HCC) COLONOSCOPY 10/03/2021 3:08 PM CDT from Last 3 Months or Most Recently Relevant to Health Maintenance Results * SCAN - LABS (03/11/2024 8:48 AM FIELD CANE SCALE CLERK) Result Jessee Mendiola MD Final Result * SCAN - RADIOLOGY/IMAGING (03/11/2024 6:22 AM FIELD CANE SCALE CLERK) Anatomical Region Laterality Modality Other Result Jessee Mendiola MD Final Result * SCAN - LABS (03/11/2024 2:10 AM FIELD CANE SCALE CLERK) us Newton Mendiola MD Final Result * SCAN - LABS (03/10/2024 10:15 PM FIELD CANE SCALE CLERK) Result Jessee Mendiola MD Final Result * SCAN - LABS (03/10/2024 10:15 PM FIELD CANE SCALE CLERK) Result Jessee Mendiola MD Final Result * SCAN - RADIOLOGY/IMAGING (03/10/2024 6:46 PM FIELD CANE SCALE CLERK) Anatomical Region Laterality Modality Other Result Jessee Mendiola MD Final Result * (ABNORMAL) POCT hemoglobin A1c (12/09/2023 2:02 PM CDT) Hemoglobin A1C, POC 6.3 4.0 - 5.6 % Blood 12/09/2023 2:02 PM CDT Result Jessee Mendiola MD POINT OF CARE TEST ORDERABLES Final Result * Albumin Creatinine Ratio, Urine (08/28/2023 11:36 AM CDT) Creatinine ur 50.0 Not Estab. mg/dL [facility] - 01 Microalbumin, ur 3.5 Not Estab. ug/mL [facility] - 01 Microalbumin/cre at ratio 7 0 - 29 mg/g creat [facility] - 01 Comment: ? Normal: ?0 - ??29 ? Moderately increased: 30 - 300 ? Severely increased: ? >300 Urine 08/28/2023 11:3 6 AM CDT 08/28/2023 Narrative [facility] - 08/29/2023 8:15 AM CDT Performed at: ??01 - [facility] [address], [place], [place] ??[id number] Clinical Documentation Manager: Vernon Connell PhD, Phone: ??[phone] us Vicky Donaldson DEPUTY CHIEF COUNSEL LAB URINE ORDERABLES Fin al Result [facility] - 01 * (ABNORMAL) Comprehensive metabolic panel (08/28/2023 11:29 AM CDT) Glucose 119(H) 70 - 99 mg/dL [facility] - 01 BUN 16 6 - 24 mg/dL [facility] - 01 Creatinine, Serum 0.82 0.57 - 1.00 mg/dL [facility] - 01 eGFR 83 >59 mL/min/1.7 3 [facility] - 01 BUN/creat ratio 20 9 - 23 [facility] - 01 Sodium 142 134 - 144 mmol/L [facility] - 01 Potassium, sr 4.1 3.5 - 5.2 mmol/L [facility] - 01 Chloride 107(H) 96 - 106 mmol/L [facility] - 01 CO2 19(L) 20 - 29 mmol/L [facility] - 01 Calcium 9.8 8.7 - 10.2 mg/dL [facility] - 01 Protein, sr 7.0 6.0 - 8.5 g/dL [facility] - 01 Albumin 4.3 3.8 - 4.9 g/dL [facility] - 01 Globulin, Total 2.7 1.5 - 4.5 g/dL [facility] - 01 A/G Ratio 1.6 [facility] - 01 Bilirubin, Total 0.2 0.0 - 1.2 mg/dL [facility] - 01 Alk phos 94 44 - 121 IU/L [facility] - 01 AST 17 0 - 40 IU/L [facility] - 01 ALT 18 0 - 32 IU/L [facility] - 01 Blood 08/28/2023 11:2 9 AM CDT 08/28/2023 Narrative [facility] - 08/29/2023 8:15 AM CDT Performed at: ?? - [facility] [address] ??[id number] Clinical Documentation Manager: Vernon Connell PhD, Phone: ??[phone] Vicky Donaldson NP LAB BLOOD ORDERABLES Fin al Result [facility] - 01 * POCT lipid panel (08/28/2023 10:41 AM CDT) HDL, POC 37 mg/dL Triglycerides, POC 103 mg/dL LDL Cholesterol POC 90 mg/dL Chol/HDL Ratio, POC 4 Non-HDL Cholesterol, POC 111 mg/dL Cholesterol Total, POC 148 mg/dL Capillary blood 08/28/2023 1 0:41 AM CDT Vicky Donaldson NP POINT OF CARE TEST ORDER FRANCISCO Final Result * COLONOSCOPY (10/03/2021 3:08 PM CDT) Anatomical Region Laterality Modality Other Narrative Procedure Note Brunilda Arzola MD - 10/03/2021 3:08 PM CDT [facility] Patient Name: Katy Sauceda Procedure Date: 10/03/2021 3:08 PM Date of : 1965 Admit Type: Outpatient Age: 56 Gender: Female Attending MD: Brunilda Arzola M.D. Room: [facility] ENDOSCOPY ROOM 3 Note Status: Finalized Procedure: Colonoscopy Indications: Screening for colorectal malignant neoplasm Referring MD: Douglas Simmons.N.Jorje. Providers: Brunilda Arzola M.D. Medicines: Monitored Anesthesia Care Complications: No immediate complications. Estimated blood loss: Minimal. Estimated Blood Loss: Estimated blood loss was minimal. Procedure: Pre-Anesthesia Assessment: - Immediately prior to administration ofmedications, the patient was re-assessed for adequacy to receive sedatives. - The risks and benefits of the procedure and the sedation options and risks were discussed with the patient. All questions were answered and informed consent was obtained. The benefits, risks and alternatives of theprocedure and sedation were discussed and informed consentwas obtained. All questions were answered. Please referto the signed informed consent document in the medical record. The scope was passed under direct vision.The CF [id number] endoscope was introduced through the anus and advanced to the cecum, identified by appendiceal orifice and ileocecal valve. The colonoscopy was performed without difficulty. The patient tolerated the procedure well. The qualityof the bowel preparation was excellent. The bowel preparation used was Miralax via single dose instruction. Findings: The perianal and digital rectal examinations were normal. A 2 mm polyp was found in the hepatic flexure. The polyp was sessile. The polyp was removed with a jumbo cold forceps. Resection andretrieval were complete. Two sessile polyps were found in the splenic flexure. The polyps were2 mm in size. These polyps were removed with a jumbo cold forceps. Resection and retrieval were complete. A 2 mm polyp was found in the descending colon. The polyp wassessile. The polyp was removed with a jumbo cold forceps. Resection andretrieval were complete. The retroflexed view of the distal rectum and anal verge was normaland showed no anal or rectal abnormalities. The exam was otherwise without abnormality. Impression: - One 2 mm polyp at the hepatic flexure, removedwith a jumbo cold forceps. Resected and retrieved. - Two 2 mm polyps at the splenic flexure, removedwith a jumbo cold forceps. Resected and retrieved. - One 2 mm polyp in the descending colon, removedwith a jumbo cold forceps. Resected and retrieved. - The distal rectum and anal verge are normal on retroflexion view. - The examination was otherwise normal. Recommendation: - Await pathology results. - A polyp or polyps were removed during your colonoscopy today. After the pathology result ofthe polyp(s)? ? ?is reviewed, the doctor who performedyour colonoscopy will recommend follow-up colonoscopy to you based on current guidelines by gastroenterology societies: - If only small hyperplastic polyps from the rectumor sigmoid were removed, repeat the colonoscopy in 10 years. - If 1 or 2? ? ?polyps less than 1 cm in size are adenomas, repeat the colonoscopy in 5 years. - If 3 or more polyps are adenomas, repeat the colonoscopy in 3 years. - If there are 10 or more adenomas, repeat the colonoscopy in 1 year. - If any polyp is 10 mm or greater in size, has villous histology or high grade dysplasia,repeat? ? ?the colonoscopy in 3 years. - If a polyp greater than 2 cm was removed with a piecemeal technique, repeat the colonoscopy in 6 months to be certain that there is no residualpolyp. - Sessile serrated polyps are treated like adenomas for surveillance purposes. Electronically signed by Brunilda Arzola MD Brunilda Arzola M.D. 10/03/2021 3:54:22 PM . Number of Addenda: 0 Note Initiated On: 10/03/2021 3:08 PM Recognized by the [employer] for promoting quality in endoscopy Brunilda Arzola MD ENDOSCOPY PROCEDURES Final Re sult from Last 3 Months or Most Recently Relevant to Health Maintenance Insurance [facility] [place] [address] [facility] Advance Directives For more information, please contact: [phone] * Full Code (Latest Code Status on File) Date Activated Date Inactivated Comments 10/03/2021 1:58 PM 10/03/2021 8:24 PM * Full Code Date Activated Date Inactivated Comments 01/11/2021 3:56 PM 01/15/2021 4:01 PM * Full Code Date Activated Date Inactivated Comments 05/20/2020 5:54 PM 05/21/2020 8:50 PM Care Teams Aircraft Systems Technician Relationship Specialty Start Date End Date Newton Mendiola MD [id number] [place] [address] PCP - General 06/09/16 Sly Cade MD [address] [facility] [address] [place] [address] Referring Physician Cardiology 12/07/18
--- OUTSIDE RECORDS SUMMARY | 2024-03-18 04:57 | XMS_ITS | Encounter Summary ---
Author Organization [facility] Address [address] [place] [address] Care Team Providers Care Retail Chain Store Area Supervisor Name Role Phone Newton Mendiola MD Primary Care Provider [phone] Reason for Visit * Reason Comments Pain Tailbone c/o tailbone pain s/ p accident at [facility], pt was in an intertube and sts she injured her tailbone at the bottom of the hill, sts she was in the tube the whole time, There was a dip and then a hump, I hit my tailbone directly against the hump Encounter Details Date Type Department Care Team (Late st Contact Info) Description 04/23/2019 4:25 PM DIETETIC AIDE - 04/23/2019 7:19 PM DIETETIC AIDE Emergency ER at [facility] [id number] [place] [address] Eduardo Robbins, PA-C [id number] [place] [address] Fall, initial encounter; Contusion of coccyx, initial encounter Discharge Disposition: Home or Self Care Social History Tobacco Use Types Packs/Day Years Used Date Smoking Tobacco: Never Smokeless Tobacco: Never Alcohol Use Standard Drinks/Week Comments Yes 0 (1 standard drink = 0.6 oz pur e alcohol) rar Sex and Gender Information Value Date Recorded Sex Assigned at Not on file Gender Identity Not on file Sexual Orientation Not on file documented as of this encounter Last Filed Vital Signs Vital Sign Reading Time Taken Comments Blood Pressure 143/67 04/23/2019 6:30 PM DIETETIC AIDE Pulse 96 04/23/2019 4:23 PM DIETETIC AIDE Temperature 36.6 ??C (97.8 ??F) 04/23/2019 4:23 PM CS T Respiratory Rate 20 04/23/2019 4:23 PM DIETETIC AIDE Oxygen Saturation 100% 04/23/2019 6:30 PM DIETETIC AIDE Inhaled Oxygen Concentration - - Weight 88.9 kg (196 lb) 04/23/2019 4:23 PM DIETETIC AIDE Height 162.6 cm (5' 4 ) 04/23/2019 4:23 PM DIETETIC AIDE Body Mass Index 33.64 04/23/2019 4:23 PM DIETETIC AIDE documented in this encounter Discharge Instructions * Discharge Instructions* Eduardo Robbins PA-C - 04/23/2019 6:44 PM DIETETIC AIDE - Do not drive or operate machinery while taking Flexeril/cyclobenzaprine. - Do not take other NSAIDs including ibuprofen, Motrin, Aleve, naproxen, Mobic while taking meloxicam ETIC AIDE * Attachments The following attachments cannot be sent through Care Everywhere. * Contusion in Adults (AfterCare(R) Instructions(ER/ED)) (Danish) * Coccyx Injury (AfterCare(R) Instructions(ER/ED)) (Danish) documented in this encounter Medications at Time of Discharge Medication Sig Dispensed Refills Start Date End Date acyclovir (ZOVIRAX) 5 % cream 09/13/2018 aspirin (ASPIRIN) 81 MG tablet Take 81 mg by mouth once daily buPROPion XL 24hr (WELLBUTRIN-XL) 300 MG tablet Take 300 mg by mouth once daily 08/19/2017 escitalopram (LEXAPRO) 5 MG tablet Take 5 mg by mouth once daily 12/31/2017 fluticasone propionate (FLONASE) 50 MCG/ACT nasal spray daily. 07/09/2016 hydrocodone-acetaminophe n (NORCO) 5-325 MG tablet Take 1 Tab by mouth every 6 hours as needed for Pain. 8 Tab 0 03/07/2011 isosorbide mononitrate CR 24hr (IMDUR) 30 MG tablet TAKE 1 TABLET BY MOUTH EVERY DAY 03/25/2018 losartan (COZAAR) 25 MG tablet Take 25 mg by mouth once daily meloxicam (MOBIC) 15 MG tablet Take 1 tablet by mouth once daily 10 tablet 04/23/2019 metoprolol succinate XL 24hr (TOPROL XL) 25 MG tablet Take 25 mg by mouth once daily omeprazole (PRILOSEC) 20 MG capsule Take 20 mg by mouth once daily as needed. pantoprazole EC (PROTONIX) 40 MG tablet Take 40 mg by mouth once daily 08/09/2017 promethazine (PHENERGAN) 25 MG tablet Take 1 Tab by mouth every 6 hours as needed for Nausea/Vomiting. 10 Tab 0 03/07/2011 rizatriptan (MAXALT) 10 MG tablet TAKE 1 TABLET AT ONSET OF HEADACHE. MAY REPEAT EVERY 2 HOURS NEEDED. MAXIMUM 3 TABLETS IN 24 HOURS. 07/09/2016 cyclobenzaprine (FLEXERIL) 10 MG tablet Take 1 tablet by mouth 3 times daily as needed for Muscle Spasms 21 tablet 04/23/2019 04/30/2019 documented as of this encounter ED Notes * Eduardo Robbins PA-C - 04/23/2019 6:32 PM CST M Emergency Department Note History of Present Illness CC: Pain Tailbone (c/o tailbone pain s/p accident at [facility], pt was in an intertube and sts she injured her tailbone at the bottom of the hill, sts she was in the tube the whole time, There was a dip and then a hump, I hit my tailbone directly against the hump ) HPI: Katy Sauceda is a 54 year old female who presents with significant past medical history ofGERD, Hodgkin's disease, left bundle branch block presents to the emergency department with 2 hr onset of tailbone buttock pain. Patient reports that she was riding down a ski slope on an inter tube when she got to the bottom hit a patch of dirt .patient notes at that time she bottomed out on the inner tube striking her tailbone on the ground. Patient denies being thrown off of the inner to hitting head loss of consciousness or other injury. Patient denies loss her change in bowel or bladder. Patient reports immediately following the incident she was able to get and walked to the 1st aid station. Patient presents to the emergency department with 8/10 lower sacral/coccyx sharp stabbing pain worse with direct touch with radiation into the right buttock. Patient denies associated numbness weakness back pain extremity pain or other infectious/constitutional symptoms Treatments initiated by patient: none Relevant Medical History Past Medical History: has a past medical history of GERD (gastroesophageal reflux disease), Hodgkindisease, and LBBB (left bundle branch block). Negative unless noted above Past Surgical History: has a past surgical history that includes cholecystectomy. Negative unless noted above Med List: No current facility-administered medications on file prior to encounter. Current Outpatient Medications on File Prior to Encounter Medication Sig Dispense Refill ??? hydrocodone-acetaminophen (NORCO) 5-325 MG tablet Take 1 Tab by mouth every 6 hours as needed for Pain. 8 Tab 0 ??? omeprazole (PRILOSEC) 20 MG capsule Take 20 mg by mouth once daily as needed. ??? promethazine (PHENERGAN) 25 MG tablet Take 1 Tab by mouth every 6 hours as needed for Nausea/Vomiting. 10 Tab 0 Med list reviewed and attached to chart Allergies: Allergies Allergen Reactions ??? Codeine Excessive Vomiting ??? Hydrocodone Itching and Nausea and/or Vomiting ??? Pcn [Penicillins] Reaction during surgery, not sure of reaction. Immunizations: There is no immunization history on file for this patient. Not applicable unless noted above Family Hx: No family history on file. Negative unless noted above Social Hx: Social History Socioeconomic History ??? Marital status: Spouse name: Not on file ??? Number of children: Not on file ??? Years of education: Not on file ??? Highest education level: Not on file Occupational History ??? Not on file Tobacco Use ??? Smoking status: Never Smoker ??? Smokeless tobacco: Never Used Substance and Sexual Activity ??? Alcohol use: Yes ??? Drug use: No ??? Sexual activity: Not on file Other Topics Concern ??? Not on file Social History Narrative ??? Not on file History source:Patient, nursing notes, and EMS notes when applicable, unless noted above Hx/PE/ROS limited by: ? Review of Systems Constitutional: No fevers or chills, Eye/ENT/Mouth: No visual changes, no epistaxis or sore throat Cardiovascular: no palpitations, no chest pain Respiratory: no stridor, no shortness of breath Gastrointestinal: No nausea, vomiting or diarrhea Genitourinary: No dysuria, no hematuria Skin: No acute rashes or edema Musculoskeletal: No acute joint swelling or decreased range of motion Neurological: No headache, no new numbness Psychiatric: No mood changes Initial GCS: 15 Physical Exam Constitutional: well developed, well nourished, no acute distress Eye: normal conjunctiva, pupils equal and reactive, EOMI, no orbital step offs bilat, no periocularttp or ecchymosis/edema ENT/Mouth: external ears clear, oral pharynx no swelling or exudates, facial bones non tender, no mastoid, or periauricular ttp, ecchymosis or edema No hemotympanum bilateral, no nasal septal hematoma, no oral trauma, Neck: Cspine- no midline ttp,pt demonstrated full range of motion with flexion, extension, and rotation without resistance or pain, no immobilization CV: regular rate and rhythm, no murmurs/rubs or gallops Chest: no clavicular ttp bilat, no rib ttp bilateral Respiratory: clear to auscultation bilaterally no wheezes/rhonchi/crackles GI: abdomen soft/ nondistended no masses noted, no bruising noted, non ridged, nontender x 4 quadrants, bowel sounds present, no organomegaly or palpable masses : deferred Skin: dry, no rashes noted, no lacerations Musculoskeletal/Back: no ttp x 4 ext, there is no obvious deformity, ecchymosis, lesions, there is no ttp to midline T or L spine - [id number] tenderness to palpation to the coccyx and right buttock there is no obvious deformity ecchymosis edema or erythema. Patient has a negative straight leg raise, nontender midline lumbar spine. Extremities: No cyanosis, no edema. DP pulses 2+ bilateral Neurological: CN II-XII no deficits, upper and lower extremity strength 5/5 bilateral Psych: Pt is alert and oriented x3 w good recall and normal affect Studies and Interpretation VS: Patient Vitals for the past 24 hrs: Temp Pulse Resp BP SpO2 04/23/19 1715 -- -- -- -- 97 % 04/23/19 1700 -- -- -- 117/61 94 % 04/23/19 1645 -- -- -- -- 99 % 04/23/19 1623 97.8 ??F (36.6 ??C) 96 20 118/89 100 % Vitals reviewed: WNL Pulse Ox Interpretation: Saturation: 97 Oxygen Delivery: Room air Interpretation: No hypoxia at this time. Rhythm strip interpretation: Normal sinus rhythm, no arrhythmia noted. Ventricular rate (bpm):96 Pertinent Labs: Labs Reviewed - No data to display Images: XR SACRUM AND COCCYX Final Result Examination: Sacrum and coccyx 5 views INDICATION: Unspecified fall, initial encounter . Injury. Fell. Coccygeal pain. Tailbone pain.. FINDINGS: No fracture can be identified on the current plain films.. . If the patient's symptoms persist or worsen, please consider a scheduled outpatient higher level imaging study to exclude an occult process. IMPRESSION Negative for fracture at this time.. Please see above discussion. Reading Radiologist: Yordan Guardado MD on 04/23/2019 at 6:12 PM All imaging independently reviewed by Eduardo Robbins PA-C. Medical Decision Making and ED Course Differential Dx: DDx includes:closed head injury, skull fracture, intracranial hemorrhage, facial bones fracture, cervical spine fracture, dislocation, cord compression, cervical radiculopathy, bluntchest trauma, pneumothorax, hemothorax,cardiac tamponade,spinal fracture blunt abdominal trauma, hollow organ perforation, solid organ laceration, vascular injury,extremity trauma, fracture, dislocation, sprain, contusion, laceration Management: Management options include but not limited to : IV access and IV medications given. Case discussed with ED attending physician/MARY: Data reviewed: All current, pertinent and timely studies (laboratory, imaging, and procedures) wereordered and results reviewed by Eduardo Robbins PA-C unless otherwise noted. Triage notes and available nursing notes reviewed. Previous medical record reviewed when available. Repeat vital signs reviewed. PCP: No primary care provider on file. Plan:, labs, imaging, symptom control, consult Medications administered in triage: ED COURSE ED Course as of Apr 23 1836 Sat Apr 23, 2019 1806 Nurse notified me that the patient has refused her [place] [NS] ED Course User Index [NS] Eduardo Robbins PA-C Clinical Impressions as of Apr 23 1836 Fall, initial encounter MDM:The patient presents to the emergency department with with 2 hr onset of tailbone buttock pain.Patient reports that she was riding down a ski slope on an inter tube when she got to the bottom hit a patch of dirt .patient notes at that time she bottomed out on the inner tube striking her tailbone on the ground. Patient denies being thrown off of the inner to hitting head loss of consciousnessor other injury. Patient denies loss her change in bowel or bladder. Patient reports immediately following the incident she was able to get and walked to the 1st aid station. Patient presents to the emergency department with 8/10 lower sacral/coccyx sharp stabbing pain worse with direct touch with r adiation into the right buttock. -the patient is hemodynamically stable, with normal vitals without fever or tachycardia. -on physical exam the patient is found to have neurovascularly intact without gross or focal neurological deficits. On exam found to [id number] tenderness to palpation to the coccyx and right buttock there is no obvious deformity ecchymosis edema or erythema. Patient has a negative straight leg raise, nontender midline lumbar spine. -Imaging shows no acute osseous abnormality or fracture. -patient is ambulatory in the emergency department. - given the patient, age, presentation, negative ER workup, normal vitals, lack of concerning neurologic symptoms with improvement in symptoms with conservative measures, it is reasonable to discharge the patient home with Flexeril, meloxicam, and close fu to PCP and Ortho in 1 week is sxs not improved with conservative treatment And strict return precautions. I have spent considerable time counseling the patient on the nature of their pain/symptoms, their results, what to expect and how to manage their symptoms. I have also given my typical strict return precautions and let them know that are always welcome to call or return to the ED if their symptoms are not improving or they develop new or progressive symptoms. I ensured understanding of the instructions utilizing teach-back. All questions and concerns presented at the time of discharge were answered. Dispo: home Clinical Impression: 1. contusion of coccyx Note: This note was created with the aid of dictation software, thus there may be some word substitutions or errors. ETIC AIDE * Yahaira Gonzalez RN - 04/23/2019 4:25 PM CST Bed: 19 Expected date: Expected time: Means of arrival: Comments: Chrissie Laureano7 54F tailbone injury while intertubing at [place] [facility] 50 mcg of fentanyl given, eta 20 min ETIC AIDE documented in this encounter Plan of Treatment Not on file documented as of this encounter Procedures Procedure Name Priority Date/Time Associated Diagnosis Comments XR SACRUM AND COCCYX STAT 04/23/2019 5:39 PM DIETETIC AIDE Fall, initial encounter documented in this encounter Results * XR SACRUM AND COCCYX (04/23/2019 5:39 PM DIETETIC AIDE) Anatomical Region Laterality Modality Spine Radiographic Fabiola ging 04/23/2019 6:11 PM DIETETIC AIDE Impressions 04/23/2019 6:12 PM DIETETIC AIDE Negative for fracture at this time.. ?? Please see above discussion. Reading Radiologist: Yordan Guardado MD on 04/23/2019 at 6:12 PM Narrative 04/23/2019 6:12 PM DIETETIC AIDE Examination: Sacrum and coccyx 5 views INDICATION: Unspecified fall, initial encounter . ??Injury. ??Fell. Coccygeal pain. ??Tailbone pain.. FINDINGS: ??No fracture can be identified on the current plain films.. . If the patient's symptoms persist or worsen, please consider a scheduled outpatient higher level imaging study to exclude an occult process. Procedure Note Yordan Guardado MD - 04/23/2019 Examination: Sacrum and coccyx 5 views INDICATION: Unspecified fall, initial encounter . Injury. Fell. Coccygeal pain. Tailbone pain.. FINDINGS: No fracture can be identified on the current plain films.. . If the patient's symptoms persist or worsen, please consider a scheduled outpatient higher level imaging study to exclude an occult process. IMPRESSION Negative for fracture at this time.. Please see above discussion. Reading Radiologist: Yordan Guardado MD on 04/23/2019 at 6:12 PM Eduardo Robbins PA-C DIAGNOSTIC IMAGING ORDERABLES documented in this encounter Visit Diagnoses Diagnosis Fall, initial encounter Contusion of coccyx, initial encounter documented in this encounter Administered Medications Inactive Administered Medications - up to 3 most recent administrations Medication Order MAR Action Action Date Dose Rate Site acetaminophen (TYLENOL) tablet 1,000 mg 1,000 mg, Oral, NOW, 1 dose, On 04/23/19 at 1830 $ Given 04/23/2019 7:12 PM DIETETIC AIDE 1,000 mg ondansetron (ZOFRAN) injection 4 mg 4 mg, Intravenous, NOW, 1 dose, On 04/23/19 at 1645, Administer over 2 to 5 minutes. $ Given 04/23/2019 4:37 PM DIETETIC AIDE 4 mg ondansetron (ZOFRAN) injection ADS Med 1 dose, Starting on 04/23/19 at 1633, Until 04/23/19 at 1637, Created by cabinet override documented in this encounter Active and Recently Administered Medications Times are shown in DIETETIC AIDE. Scheduled Medication Order 04/21/2019 04/22/2019 04/23/2019 acetaminophen (TYLENOL) tablet 1,000 mg (COMPLETED) 1,000 mg, Oral, NOW, 1 dose, On 04/23/19 at 1830 1912 ($ Given - Prov ider: Albania Cameron RN) HYDROcodone-acetaminophen (NORCO) 5-325 MG tablet 1 tablet 1 tablet, Oral, NOW, 1 dose, On 04/23/19 at 1745 1749 (Not Administer ed - Provider: Yahaira Gonzalez RN - Reason: Refused-Patient) ondansetron (ZOFRAN) injection 4 mg (COMPLETED) 4 mg, Intravenous, NOW, 1 dose, On 04/23/19 at 1645, Administer over 2 to 5 minutes. 1637 ($ Given - Prov ider: Yahaira Gonzalez, ESAU) documented in this encounter Care Teams [employer] Area Supervisor Relationship Specialty Start Date End Date Newton Mendiola MD PCP - General Internal Medicine 04/23/19 documented as of this encounter
--- OUTSIDE RECORDS SUMMARY | 2024-03-18 04:57 | XMS_ITS | Clinical Summary ---
Author Organization [email or web address] Address [address] [place] [address] Care Team Providers Care Plumbing And Heating Contractor Name Role Phone Newton Mendiola MD Primary Care Provider [phone] Source Comments [facility],non-owned Affiliates and Associated Physician Practices is amultiple site organization consisting of ambulatory clinics and hospital sitesin [place], [place], [place] and [place]. This disclosure is being madepursuant to the Care Everywhere program and may not contain all information available regarding this patient. Last updated 17.[facility] Allergies Active Allergy Reactions Criticality Noted Date Comments Codeine 03/07/2011 Excessive Vomiting Hydrocodone Itching,Nausea and/o r Vomiting 04/23/2019 Penicillins 03/07/2011 Reaction during surgery, not sure of reaction. Medications * Be aware that medications may not be up to date on this document. Alwaysverify current medications with the patient. Medication Sig Dispensed Refills Start Date End Date Status omeprazole (PRILOSEC) 20 MG capsule Take 20 mg by mouth once daily as needed. Active hydrocodone-acetamino phen (NORCO) 5-325 MG tablet Take 1 Tab by mouth every 6 hours as needed for Pain. 8 Tab 0 03/07/2011 Active promethazine (PHENERGAN) 25 MG tablet Take 1 Tab by mouth every 6 hours as needed for Nausea/Vomiting. 10 Tab 0 03/07/2011 Active meloxicam (MOBIC) 15 MG tablet Take 1 tablet by mouth once daily 10 tablet 04/23/2019 Active acyclovir (ZOVIRAX) 5 % cream 09/13/2018 Active aspirin (ASPIRIN) 81 MG tablet Take 81 mg by mouth once daily Active buPROPion XL 24hr (WELLBUTRIN-XL) 300 MG tablet Take 300 mg by mouth once daily 08/19/2017 Active escitalopram (LEXAPRO) 5 MG tablet Take 5 mg by mouth once daily 12/31/2017 Active fluticasone propionate (FLONASE) 50 MCG/ACT nasal spray daily. 07/09/2016 Active isosorbide mononitrate CR 24hr (IMDUR) 30 MG tablet TAKE 1 TABLET BY MOUTH EVERY DAY 03/25/2018 Active losartan (COZAAR) 25 MG tablet Take 25 mg by mouth once daily Active metoprolol succinate XL 24hr (TOPROL XL) 25 MG tablet Take 25 mg by mouth once daily Active pantoprazole EC (PROTONIX) 40 MG tablet Take 40 mg by mouth once daily 08/09/2017 Active rizatriptan (MAXALT) 10 MG tablet TAKE 1 TABLET AT ONSET OF HEADACHE. MAY REPEAT EVERY 2 HOURS NEEDED. MAXIMUM 3 TABLETS IN 24 HOURS. 07/09/2016 Active Active Problems Problem Noted Date Diagnosed Date Abdominal pain, left lower quadrant 03/07/2011 Social History Tobacco Use Types Packs/Day Years [...] Comments Blood Pressure 143/67 04/23/2019 6:30 PM PALLIATIVE CARE COORDINATOR Pulse 96 04/23/2019 4:23 PM PALLIATIVE CARE COORDINATOR Temperature 36.6 ??C (97.8 ??F) 04/23/2019 4:23 PM CS T Respiratory Rate 20 04/23/2019 4:23 PM PALLIATIVE CARE COORDINATOR Oxygen Saturation 100% 04/23/2019 6:30 PM PALLIATIVE CARE COORDINATOR Inhaled Oxygen Concentration - - Weight 88.9 kg (196 lb) 04/23/2019 4:23 PM PALLIATIVE CARE COORDINATOR Height 162.6 cm (5' 4 ) 04/23/2019 4:23 PM PALLIATIVE CARE COORDINATOR Body Mass Index 33.64 04/23/2019 4:23 PM PALLIATIVE CARE COORDINATOR Plan of Treatment Health Maintenance Due Date Last Done Comments COLOGUARD (AGES 45-75) - COL ON CA SCREENING 1965 COLON MONITORING 1965 COLONOSCOPY - COLON CA SCREENING 1965 CT COLONOGRAPHY - COLON CA SCREENING 1965 Colorectal Cancer Screening 1965 FIT - COLON CA SCREENING 1965 FLEX SIG - COLON CA SCREENING 1965 LIPID TESTING 1965 MAMMOGRAM 1965 PAP SMEAR 1965 HIV SCREENING 01/17/1980 HEPATITIS C SCREENING 01/12/1983 DTAP/TDAP/TD VACCINES (1 - Tdap) 01/17/1984 HEPATITIS B VACCINE (1 of 3 - 19+ 3-dose series) 01/17/1984 ZOSTER VACCINE (1 of 2) 2015 DEPRESSION SCREENING 03/16/2023 COVID-19 VACCINE (1 - 2023-2 5 season) 2023 INFLUENZA VACCINE (#1) 2023 01/10/2014 HIB VACCINE Aged Out No longer eligi ble based on patient's age to complete this topic HPV VACCINE Aged Out No longer eligi ble based on patient's age to complete this topic MENINGOCOCCAL VACCINE Aged Out No doris mariano eligible based on patient's age to complete this topic PNEUMOCOCCAL VACCINE Aged Out No long er eligible based on patient's age to complete this topic Care Teams Plumbing And Heating Contractor Relationship Specialty Start Date End Date Newton Mendiola MD PCP - General Internal Medicine 04/23/19
--- OUTSIDE RECORDS SUMMARY | 2024-03-18 04:57 | XMS_ITS | Encounter Summary ---
Author Organization [facility] Address [address] [place] [address] Care Team Providers Care Radiological Engineer Name Role Phone Unavailable Primary Care Provider Unavailabl e Reason for Visit * Reason Comments Pain Abdominal attack today, been g oing on for years, nausea, waves of pain, left lower quad, starts in the back, pt states she has had egd and multiple blood tests Encounter Details Date Type Department Care Team (Late st Contact Info) Description 03/07/2011 11:20 AM TELEVISION REPAIRER - 03/07/2011 3:30 PM TELEVISION REPAIRER Emergency ER at [address] [address] UTI (lower urinary tract infection) (Primary Dx); Abdominal pain, left lower quadrant; Epiploic appendagitis Discharge Disposition: Home or Self Care Social History Tobacco Use Types Packs/Day Years Used Date Smoking Tobacco: Never Alcohol Use Standard Drinks/Week Comments Yes 0 (1 standard drink = 0.6 oz pur e alcohol) Sex and Gender Information Value Date Recorded Sex Assigned at Not on file Gender Identity Not on file Sexual Orientation Not on file documented as of this encounter Last Filed Vital Signs Vital Sign Reading Time Taken Comments Blood Pressure 123/78 03/07/2011 3:29 PM TELEVISION REPAIRER Pulse 88 03/07/2011 3:29 PM TELEVISION REPAIRER Temperature 37.1 ??C (98.7 ??F) 03/07/2011 11:[address] Respiratory Rate 18 03/07/2011 3:29 PM TELEVISION REPAIRER Oxygen Saturation 100% 03/07/2011 3:29 PM TELEVISION REPAIRER Inhaled Oxygen Concentration - - Weight 84.8 kg (187 lb) 03/07/2011 11:27 AM TELEVISION REPAIRER Height 162.6 cm (5' 4 ) 03/07/2011 11:27 AM TELEVISION REPAIRER Body Mass Index 32.1 03/07/2011 11:27 AM TELEVISION REPAIRER documented in this encounter Discharge Instructions * Discharge Instructions* Jessenia Spears PA - 03/07/2011 3:13 PM TELEVISION REPAIRER Please follow up with resources provided. Return to the emergency room as needed. Care of a Urinary Tract Infection (UTI) A bladder infection (cystitis), or kidney infection (pyelonephritis), or prostate infection (prostatitis) will usually respond to antibiotics. These are medications that kill germs. Take all the medicine given to you until it is gone. You may feel better in a few days, but TAKE ALL MEDICINE or the infection may not respond and become more difficult to treat. Response can generally be expected in 7 to 10 days. HOME CARE INSTRUCTIONS ?? Drink a lot of fluid, 3 to 4 quarts a day. Cranberry juice is especially recommended, in addition to large amounts of water. ?? Avoid caffeine, tea and carbonated beverages (Coke??, 7-Up??, etc). They tend to irritate the bladder. ?? Alcohol may irritate the prostate. ?? Only take [id number] or prescription medicines for pain, discomfort, or fever as directed by your caregiver TO PREVENT FURTHER INFECTIONS: ?? Empty the bladder often. Avoid holding urine for long periods of time. ?? After a bowel movement, women should cleanse from front to back. Use each tissue only once. ?? Empty the bladder before and after sexual intercourse. ?? If you develop back pain, fever, feel sick to your stomach (nausea), vomiting, or your problems (symptoms) are no better in 3 days, return to your caregiver. Return sooner if you are getting worse. SEEK IMMEDIATE MEDICAL CARE IF YOU: ?? Develop severe back pain or lower abdominal pain. ?? Develop chills and fever. ?? Develop nausea or vomiting. ?? Have continued burning or discomfort with urination. MAKE SURE YOU: ?? Understand these instructions. ?? Will watch your condition. ?? Will get help right away if you are not doing well or get worse. Document Released: 12/10/2005 Document Re-Released: 02/12/2009 [employer]?? Patient Information ??2010 [employer]. Abdominal Pain Epiploic appendagitis Abdominal (belly) pain can be caused by many things. Your caregiver decides the seriousness of yourpain by an examination and possibly blood tests and x-rays. Many cases can be observed and treated at home. Most abdominal pain in children is functional. This means it is not caused by a disease andwill probably improve without treatment. However, in many cases, more time must pass before a clear cause of the pain can be found. Before that point, it may not be known if you need more testing, orif hospitalization or surgery is needed. HOME CARE INSTRUCTIONS: ?? Do not take or give laxatives unless directed by your caregiver. ?? Take pain medication only if ordered by your caregiver. ?? Only take [id number]-[id number] or prescription medicines for pain, discomfort or fever as directed by your caregiver. ?? Try a clear liquid diet - broth, tea, or water as ordered by your caregiver. Slowly move to a bland diet as tolerated. SEEK IMMEDIATE MEDICAL ATTENTION IF: ?? The pain does not go away. ?? An oral temperature above 102?? F (38.9?? C) develops or as directed by your caregiver. ?? Repeated vomiting occurs. ?? The pain is felt only in portions of the abdomen. The right side could possibly be appendicitis.In an adult, the left lower portion of the abdomen could be colitis or diverticulitis. ?? Blood is being passed in stools (bright red or black tarry stools). MAKE SURE YOU: ?? Understand these instructions. ?? Will watch your condition. ?? Will get help right away if you are not doing well or get worse. Document Released: 03/02/2006 Document Re-Released: 05/29/2009 [facility]?? Patient Information ??2009 [employer]. VISION REPAIRER * Discharge Instructions* Document, Scanned - 03/12/2011 9:33 AM TELEVISION REPAIRER VISION REPAIRER documented in this encounter Medications at Time of Discharge Medication Sig Dispensed Refills Start Date End Date hydrocodone-acetaminophen (NORCO) 5-325 MG tablet Take 1 Tab by mouth every 6 hours as needed for Pain. 8 Tab 0 03/07/2011 omeprazole (PRILOSEC) 20 MG capsule Take 20 mg by mouth once daily as needed. promethazine (PHENERGAN) 25 MG tablet Take 1 Tab by mouth every 6 hours as needed for Nausea/Vomiting. 10 Tab 0 03/07/2011 sulfamethoxazole-trimetho prim (BACTRIM DS; SEPTRA DS) 800-160 MG tablet Take 1 Tab by mouth 2 times daily for 3 days. 6 Tab 0 03/07/2011 03/10/2011 documented as of this encounter ED Notes * Darek Cantor MD - 03/07/2011 6:33 PM CST For this patient encounter, I reviewed the AIR CARRIER INSPECTOR or PA documentation, procedures (if done), treatment plan, and medical decision making; and I had lrxd-iv-[id number] time with this patient. VISION REPAIRER * Jeanne Waller RN - 03/07/2011 3:30 PM CST Discharge instructions reviewed with patient & patient verbalized understanding. Pt in stable condition with no distress, and noted to have strong and steady gait. VISION REPAIRER * Jessenia Spears PA - 03/07/2011 11:32 AM CST Provider contact with the patient: 03/07/2011 11:32 AM Katy Sauceda [id number] [facility] EMERGENCY ROOM History Chief Complaint Patient presents with ??? Pain Abdominal attack today, been going on for years, nausea, waves of pain, left lower quad, starts in the back, pt states she has had egd and multiple blood tests HPI Comments: CC: abdominal pain HPI: 46 YO C female presents to ED with LLQ pain. States pain has been ongoing for several years with multiple studies done to fine source of pain. Pain is daily and comes in waves. Describes as sharp, achy and sore , can last minutes to hours. Today was the worst episode and began while driving. Located LLQ and radiates around to lower back, associated nausea. No urinary symptoms, hematemesis, melena or hematochezia. No alleviating factors.Pain is worse at night and worse with bladder fullness. She had cholecystectomy, EGD and treatment supervisor workup for pain. No source of pain identified. Colonoscopy years prior, states she's never had a CT of abdomen/pelvis. Pmhx: HL, GERD Past Medical History Diagnosis Date ??? Hodgkin disease ??? GERD (gastroesophageal reflux disease) Past Surgical History Procedure Date ??? Cholecystectomy No family history on file. History Social History ??? Marital Status: Spouse Name: N/A Number of Children: N/A ??? Years of Education: N/A Occupational History ??? Not on file. Social History Main Topics ??? Smoking status: Never Smoker ??? Smokeless tobacco: Not on file ??? Alcohol Use: Yes ??? Drug Use: No ??? Sexually Active: Not on file Other Topics Concern ??? Not on file Social History Narrative ??? No narrative on file Review of Systems Review of Systems Constitutional: Positive for fever (subjective ). Negative for chills. Gastrointestinal: Positive for heartburn, nausea and abdominal pain. Negative for vomiting, diarrhea, constipation, blood in stool and melena. Genitourinary: Negative for dysuria. Musculoskeletal: Positive for back pain (Left lower back). All other systems reviewed and are negative. Physical Exam BP 133/84 Pulse 109 Temp 98.7 ??F Resp 16 Ht 5' 4 (1.626 m) Wt 187 lb (84.823 kg) BMI 32.10 kg/m2 SpO2 100% Physical Exam Nursing note and vitals reviewed. Constitutional: She is oriented to person, place, and time and well-developed, well-nourished, and in no distress. HENT: Head: Normocephalic and atraumatic. Nose: Nose normal. Eyes: Conjunctivae are normal. Neck: Normal range of motion. Neck supple. Cardiovascular: Normal rate, regular rhythm and normal heart sounds. Pulmonary/Chest: Effort normal and breath sounds normal. Abdominal: Soft. Bowel sounds are normal. She exhibits no distension and no mass. Tenderness (LLQ midly TTP) is present. She has no rebound and no guarding. Musculoskeletal: Normal range of motion. Neurological: She is alert and oriented to person, place, and time. GCS score is 15. Skin: Skin is warm and dry. Psychiatric: Mood and affect normal. Medications Current Outpatient Prescriptions Medication Sig Dispense Refill ??? omeprazole (PRILOSEC) 20 MG capsule Take 20 mg by mouth once daily as needed. ??? sulfamethoxazole-trimethoprim (BACTRIM DS; SEPTRA DS) 800-160 MG tablet Take 1 Tab by mouth 2 times daily for 3 days. 6 Tab 0 ??? hydrocodone-acetaminophen (NORCO) 5-325 MG tablet Take 1 Tab by mouth every 6 hours as needed for Pain. 8 Tab 0 ??? promethazine (PHENERGAN) 25 MG tablet Take 1 Tab by mouth every 6 hours as needed for Nausea/Vomiting. 10 Tab 0 Procedures Procedures EKG Interpretation Lab/SPO2 Interpretation Results for orders placed during the hospital encounter of 03/07/11 CBC W AUTO DIFFERENTIAL Component Value Range WBC 12.1 (*) 4.0 - 11.0 (K/CUMM) RBC 4.40 3.80 - 5.30 (M/CUMM) Hgb 12.8 11.7 - 15.5 (gm/dL) HCT 37.4 36 - 46 (%) MCV 85.0 80 - 99 (fL) MCH 29.1 26 - 34 (pg) MCHC 34.2 32 - 36 (gm/dL) RDW 13.2 11.5 - 14.5 (%) Plt Ct K/CUMM 406 (*) 150 - 400 (K/CUMM) Gran 71.7 (*) 43 - 70 (%) Lymph 21.4 (*) 22 - 41 (%) [place] 6.2 2 - 13 (%) Eos 0.5 0 - 6 (%) Baso 0.2 0 - 2 (%) Gran Abs 8.7 (*) 1.7 - 7.7 Lymph Abs 2.6 1.0 - 3.0 [place] Abs 0.8 0.2 - 1.0 Eos Abs 0.1 0.0 - 0.4 Baso Abs 0.0 0.0 - 0.1 COMPREHENSIVE METABOLIC PANEL Component Value Range Glucose 96 70 - 110 (mg/dL) BUN 14 7 - 21.0 (mg/dL) Creatinine 0.58 0.5 - 1.3 (mg/dL) BUN/Creat 24.1 Sodium 140 136 - 145 (mmol/L) Potassium 3.9 3.5 - 5.1 (mmol/L) Chloride 108 (*) 98 - 107 (mmol/L) CO2 21 (*) 22 - 30 (mmol/L) Anion Gap 11 Calcium 8.6 8.5 - 10.1 (mg/dL) Alk Phos 83 38 - 126 (U/L) ALT/SGPT 30 12.0 - 78.0 (U/L) AST/SGOT 16 5.0 - 40.0 (U/L) Bili Total 0.4 0.2 - 1.0 (mg/dL) Protein Total 7.6 6.4 - 8.2 (gm/dL) Albumin 3.8 3.4 - 5.0 (gm/dL) eGFR by MDRD >60 SEE BELOW (ml/min/1.73 m2) AMYLASE BLOOD Component Value Range Amylase 23 15 - 115 (U/L) URINALYSIS ROUTINE W/REFLEX TO CULTURE Component Value Range Source CleanCatch Color UA YELLOW Character UA CLEAR Specific [place] UA 1.022 1.002 - 1.030 pH UA 5.5 5.0 - 8.0 Protein UA NEGATIVE NEG Blood UA TRACE NEG Leukocyte UA 2+ NEG Nitrite UA NEGATIVE NEG Glucose UA NEGATIVE NEG Ketone UA NEGATIVE NEG Bili UA NEGATIVE NEG Urobilinogen UA 0.2 0.1 - 1.0 (E.U./dl) WBC UA 20-50 (*) 0 - 4 (/HPF) RBC UA 5-10 (*) 0 - 5 (/HPF) Epithelial Cell UA 5-10 (*) 0 - 6 (/HPF) Mucus Ua 1+ none Bacteria UA 3+ none Crystals UA NOT DETECTED Yeast UA NOT DETECTED none UA Culture Culture to be done per protocol. CT ABDOMEN AND PELVIS WITH IV CONTRAST Final Result: 1. Mild pericolonic inflammatory changes in the distal descending colon, with an adjacent fatty nodule. Findings are highly suggestive of the self-limited process of epiploic appendicitis. Negative for abscess or free air. 2. Uterus demonstrates a prominent endometrial cavity, measuring up to 18 mm in diameter. Followup with pelvic ultrasound can be done to further characterize. 3. Fatty infiltration of liver. Postoperative changes of cholecystectomy, with no duct dilatation. Report was finalized at the time of the patient's ER visit. Results for orders placed during the hospital encounter of 03/07/11 CBC W AUTO DIFFERENTIAL Component Value Range WBC 12.1 (*) 4.0 - 11.0 (K/CUMM) RBC 4.40 3.80 - 5.30 (M/CUMM) Hgb 12.8 11.7 - 15.5 (gm/dL) HCT 37.4 36 - 46 (%) MCV 85.0 80 - 99 (fL) MCH 29.1 26 - 34 (pg) MCHC 34.2 32 - 36 (gm/dL) RDW 13.2 11.5 - 14.5 (%) Plt Ct K/CUMM 406 (*) 150 - 400 (K/CUMM) Gran 71.7 (*) 43 - 70 (%) Lymph 21.4 (*) 22 - 41 (%) [place] 6.2 2 - 13 (%) Eos 0.5 0 - 6 (%) Baso 0.2 0 - 2 (%) Gran Abs 8.7 (*) 1.7 - 7.7 Lymph Abs 2.6 1.0 - 3.0 [place] Abs 0.8 0.2 - 1.0 Eos Abs 0.1 0.0 - 0.4 Baso Abs 0.0 0.0 - 0.1 COMPREHENSIVE METABOLIC PANEL Component Value Range Glucose 96 70 - 110 (mg/dL) BUN 14 7 - 21.0 (mg/dL) Creatinine 0.58 0.5 - 1.3 (mg/dL) BUN/Creat 24.1 Sodium 140 136 - 145 (mmol/L) Potassium 3.9 3.5 - 5.1 (mmol/L) Chloride 108 (*) 98 - 107 (mmol/L) CO2 21 (*) 22 - 30 (mmol/L) Anion Gap 11 Calcium 8.6 8.5 - 10.1 (mg/dL) Alk Phos 83 38 - 126 (U/L) ALT/SGPT 30 12.0 - 78.0 (U/L) AST/SGOT 16 5.0 - 40.0 (U/L) Bili Total 0.4 0.2 - 1.0 (mg/dL) Protein Total 7.6 6.4 - 8.2 (gm/dL) Albumin 3.8 3.4 - 5.0 (gm/dL) eGFR by MDRD >60 SEE BELOW (ml/min/1.73 m2) AMYLASE BLOOD Component Value Range Amylase 23 15 - 115 (U/L) URINALYSIS ROUTINE W/REFLEX TO CULTURE Component Value Range Source CleanCatch Color UA YELLOW Character UA CLEAR Specific [place] UA 1.022 1.002 - 1.030 pH UA 5.5 5.0 - 8.0 Protein UA NEGATIVE NEG Blood UA TRACE NEG Leukocyte UA 2+ NEG Nitrite UA NEGATIVE NEG Glucose UA NEGATIVE NEG Ketone UA NEGATIVE NEG Bili UA NEGATIVE NEG Urobilinogen UA 0.2 0.1 - 1.0 (E.U./dl) WBC UA 20-50 (*) 0 - 4 (/HPF) RBC UA 5-10 (*) 0 - 5 (/HPF) Epithelial Cell UA 5-10 (*) 0 - 6 (/HPF) Mucus Ua 1+ none Bacteria UA 3+ none Crystals UA NOT DETECTED Yeast UA NOT DETECTED none UA Culture Culture to be done per protocol. Progress Notes Spoke with patient about CT findings, probably cannot attribute all of her pain to this, advised f/u with pmd referral with GI referral. ED Course Patient discharged home with bactrim, norco and phenergan and pcp referral. Medical Decision Making I have reviewed the: Nursing Notes and Vitals. I have interpreted the following results: Oxygen Saturation. Clinical Impression Encounter Diagnoses Name Primary? Abdominal pain, left lower quadrant ??? Epiploic appendagitis ??? UTI (lower urinary tract infection) Yes VISION REPAIRER documented in this encounter Miscellaneous Notes * Miscellaneous Scans - Document, Scanned - 03/12/2011 1:12 PM CST VISION REPAIRER documented in this encounter Plan of Treatment Not on file documented as of this encounter Procedures Procedure Name Priority Date/Time Associated Diagnosis Comments CT ABDOMEN PELVIS W CONTRAST STAT 03/07/2011 2:08 PM TELEVISION REPAIRER Abdominal pain, left lower quadrant URINALYSIS REFLEX MICROSCOPIC REFLEX CULTURE STAT 03/07/2011 12:01 PM TELEVISION REPAIRER CULTURE URINE STAT 03/07/2011 12:01 PM TELEVISION REPAIRER CBC W AUTO DIFFERENTIAL STAT 03/07/2011 11:54 AM TELEVISION REPAIRER COMPREHENSIVE METABOLIC PANEL STAT 03/07/2011 11:54 AM TELEVISION REPAIRER AMYLASE BLOOD STAT 03/07/2011 11:54 AM TELEVISION REPAIRER documented in this encounter Results * CT ABDOMEN AND PELVIS WITH IV CONTRAST (03/07/2011 2:08 PM TELEVISION REPAIRER) Anatomical Region Laterality Modality Abdomen, Pelvis Computed Tomogra phy 03/07/2011 2:23 PM TELEVISION REPAIRER Impressions 03/07/2011 2:34 PM TELEVISION REPAIRER 1. ??Mild pericolonic inflammatory changes in the distal descending colon, with an adjacent fatty nodule. Findings are highly suggestive of the self-limited process of epiploic appendicitis. Negative for abscess or free air. 2. ??Uterus demonstrates a prominent endometrial cavity, measuring up to 18 mm in diameter. Followup with pelvic ultrasound can be done to further characterize. 3. ??Fatty infiltration of liver. Postoperative changes of cholecystectomy, with no duct dilatation. Report was finalized at the time of the patient's ER visit. Narrative 03/07/2011 2:[address] ??ABDOMEN AND PELVIS, WITH CONTRAST HISTORY: Left abdominal and flank pain, with nausea. White count 12.1. History of irritable bowel syndrome. History prior renal stones 10 years ago. Prior cholecystectomy. COMPARISON: No relevant examinations. TECHNIQUE: Helical CT acquisition of the abdomen and pelvis was performed with standard protocol, following administration of oral contrast and intravenous iodinated contrast. FINDINGS: Lung bases are clear. The liver demonstrates diffuse fatty infiltration, with no focal liver lesion. Postoperative changes of cholecystectomy are present. No duct dilatation is seen. The spleen, pancreas, adrenal glands coming kidneys are normally defined. The GI tract is normal in caliber. In the distal descending colon, there is mild pericolic soft tissue stranding , along with a pericolonic fatty nodule (image 48). Findings are highly suggestive of epiploic appendicitis. Mild sigmoid diverticulosis is present. The appendix is normal in appearance. Negative for abscess or free air. The aorta is normal in caliber. ??No retroperitoneal or mesenteric adenopathy is present. The is bladder is unremarkable. The uterus demonstrates a prominent central endometrial cavity, measuring up to 18 mm in diameter. ??Adnexal regions are unremarkable. The bony structures are intact. Procedure Note Roxanne Hutchinson MD - 03/07/2011 CT ABDOMEN AND PELVIS, WITH CONTRAST HISTORY: Left abdominal and flank pain, with nausea. White count 12.1. History of irritable bowel syndrome. History prior renal stones 10 years ago. Prior cholecystectomy. COMPARISON: No relevant examinations. TECHNIQUE: Helical CT acquisition of the abdomen and pelvis was performed with standard protocol, following administration of oral contrast and intravenous iodinated contrast. FINDINGS: Lung bases are clear. The liver demonstrates diffuse fatty infiltration, with no focal liver lesion. Postoperative changes of cholecystectomy are present. No duct dilatation is seen. The spleen, pancreas, adrenal glands coming kidneys are normally defined. The GI tract is normal in caliber. In the distal descending colon, there is mild pericolic soft tissue stranding , along with a pericolonic fatty nodule (image 48). Findings are highly suggestive of epiploic appendicitis. Mild sigmoid diverticulosis is present. The appendix is normal in appearance. Negative for abscess or free air. The aorta is normal in caliber. No retroperitoneal or mesenteric adenopathy is present. The is bladder is unremarkable. The uterus demonstrates a prominent central endometrial cavity, measuring up to 18 mm in diameter. Adnexal regions are unremarkable. The bony structures are intact. IMPRESSION 1. Mild pericolonic inflammatory changes in the distal descending colon, with an adjacent fatty nodule. Findings are highly suggestive of the self-limited process of epiploic appendicitis. Negative for abscess or free air. 2. Uterus demonstrates a prominent endometrial cavity, measuring up to 18 mm in diameter. Followup with pelvic ultrasound can be done to further characterize. 3. Fatty infiltration of liver. Postoperative changes of cholecystectomy, with no duct dilatation. Report was finalized at the time of the patient's ER visit. Jessenia JONES CT ORDERABLES * CULTURE URINE (03/07/2011 12:01 PM TELEVISION REPAIRER) Report [facility] Comment: Final - CULTURE <10,000 CFU/mL urogenital/skin ana URINE SPECIMEN OBTAINED BY CLEAN CATCH PROCEDURE / Unknown 03/07/2011 12:01 PM TELEVISION REPAIRER 03/07/2011 12:24 PM TELEVISION REPAIRER Ed LAB - MICROBIOLOGY O RDERABLES [facility] [address] [place] [address] * (ABNORMAL) URINALYSIS ROUTINE W/REFLEX TO CULTURE (03/07/2011 12:01 PM TELEVISION REPAIRER) Source CleanCatch [facility] Color UA YELLOW [facility] Character UA CLEAR [facility] Specific [place] UA 1.022 1.002 - 1.030 [facility] pH UA 5.5 5.0 - 8.0 [facility] Protein UA NEGATIVE NEG [facility] Blood UA TRACE NEG [facility] Leukocyte UA 2+ NEG [facility] Nitrite UA NEGATIVE NEG [facility] Glucose UA NEGATIVE NEG [facility] Ketone UA NEGATIVE NEG [facility] Bilirubin UA NEGATIVE NEG [facility] Urobilinogen UA 0.2 0.1 - 1.0 E.U./dl [facility] WBC UA 20-50(H) 0 - 4 /HPF [facility] RBC UA 5-10(H) 0 - 5 /HPF [facility] Epithelial Cell UA 5-10(H) 0 - 6 /HPF [facility] Mucus UA 1+ none [facility] Bacteria UA 3+ none [facility] Crystals UA NOT DETECTED /HPF [facility] Yeast UA NOT DETECTED none [facility] Culture Urine Culture to be done per protocol. [facility] Urine specimen (specimen) URINE SPECIMEN OBTAINED BY CLEAN CATCH PROCEDURE / Unknown 03/07/2011 12:01 PM TELEVISION REPAIRER 03/07/2011 12:05 PM TELEVISION REPAIRER Jessenia JONES LAB - URINALYSIS ORDERABLES [facility] [address] [place] [address] * AMYLASE BLOOD (03/07/2011 11:54 AM TELEVISION REPAIRER) Amylase 23 15 - 115 U/L [facility] Blood specimen (specimen) BLOOD SPECIMEN / Unknown 03/07/2011 11:54 AM TELEVISION REPAIRER 03/07/2011 11:58 AM TELEVISION REPAIRER Jessenia JONES LAB - CHEMISTRY O RDERABLES [facility] [address] [place] [address] * (ABNORMAL) COMPREHENSIVE METABOLIC PANEL (03/07/2011 11:54 AM TELEVISION REPAIRER) Pathologist [facility] Glucose 96 70 - 110 mg/dL [facility] BUN 14 7 - 21.0 mg/dL [facility] Creatinine 0.58 0.5 - 1.3 mg/dL [facility] BUN/Creatinine Ratio 24.1 [facility] Sodium 140 136 - 145 mmol/L [facility] Potassium 3.9 3.5 - 5.1 mmol/L [facility] Chloride 108(H) 98 - 107 mmol/L [facility] CO2 21(L) 22 - 30 mmol/L [facility] Anion Gap 11 [facility] Calcium 8.6 8.5 - 10.1 mg/dL [facility] Alkaline Phosphatase 83 38 - 126 U/L [facility] ALT 30 12.0 - 78.0 U/L [facility] AST 16 5.0 - 40.0 U/L [facility] Bilirubin Total 0.4 0.2 - 1.0 mg/dL [facility] Protein Total 7.6 6.4 - 8.2 gm/dL [facility] Albumin 3.8 3.4 - 5.0 gm/dL [facility] eGFR by MDRD >60 SEE BELOW ml/min/1.7 3 m2 [facility] Comment: >60 Normal Chronic Disease <60 Renal Failure <15 Blood specimen (specimen) BLOOD SPECIMEN / Unknown 03/07/2011 11:54 AM TELEVISION REPAIRER 03/07/2011 11:58 AM TELEVISION REPAIRER Jessenia JONES LAB - CHEMISTRY O RDERAALEXEI [facility] [address] [place] [address] * (ABNORMAL) CBC W AUTO DIFFERENTIAL (03/07/2011 11:54 AM TELEVISION REPAIRER) WBC 12.1(H) 4.0 - 11.0 K/CUMM [facility] RBC 4.40 3.80 - 5.30 M/CUMM [facility] Hemoglobin 12.8 11.7 - 15.5 gm/dL [facility] Hematocrit 37.4 36 - 46 % [facility] MCV 85.0 80 - 99 fL [facility] MCH 29.1 26 - 34 pg [facility] MCHC 34.2 32 - 36 gm/dL [facility] RDW 13.2 11.5 - 14.5 % [facility] Platelet Count 406(H) 150 - 400 K/CUMM [facility] Granulocytes % 71.7(H) 43 - 70 % [facility] Lymphocytes % 21.4(L) 22 - 41 % [facility] Monocytes % 6.2 2 - 13 % [facility] Eosinophils % 0.5 0 - 6 % [facility] Basophils % 0.2 0 - 2 % [facility] Granulocytes Absolute 8.7(H) 1.7 - 7.7 [facility] Lymphocytes Absolute 2.6 1.0 - 3.0 [facility] Monocytes Absolute 0.8 0.2 - 1.0 [facility] Eosinophils Absolute 0.1 0.0 - 0.4 [facility] Basophils Absolute 0.0 0.0 - 0.1 [facility] Blood specimen (specimen) BLOOD SPECIMEN / Unknown 03/07/2011 11:54 AM TELEVISION REPAIRER 03/07/2011 11:58 AM TELEVISION REPAIRER [facility] - HEMATOLOGY ORDERABLES [facility] [address] [place] [address] documented in this encounter Visit Diagnoses Diagnosis UTI (lower urinary tract infection)- Primary Urinary tract infection, site not specified Abdominal pain, left lower quadrant Epiploic appendagitis Other and unspecified noninfectious gastroenteritis and colitis Abdominal pain, left lower quadrant documented in this encounter Administered Medications Inactive Administered Medications - up to 3 most recent administrations Medication Order MAR Action Action Date Dose Rate Site 0.9% NaCl infusion at 1,000 mL/hr, Intravenous, ONCE, 1 dose, On Thu03/07/11 at 1200, Administer 500 mL Bolus $ Given 03/07/2011 12:01 PM TELEVISION REPAIRER 1000 mL/hr iohexol (OMNIPAQUE 350) contrast Intravenous, CONTRAST ONCE, Starting on Thu03/07/11 at 1203, Until 03/08/11 at 0331 $ Given 03/07/2011 2:13 PM TELEVISION REPAIRER 100 mL iohexol (OMNIPAQUE 350) oral contrast Oral, CONTRAST ONCE, Starting on Thu03/07/11 at 1226, Until 03/08/11 at 0331 $ Given 03/07/2011 12:31 PM TELEVISION REPAIRER mL ondansetron (ZOFRAN) injection 4 mg 4 mg, Intravenous, ONCE, 1 dose, On Thu03/07/11 at 1200 $ Given 03/07/2011 12:01 PM TELEVISION REPAIRER 4 mg documented in this encounter Active and Recently Administered Medications Times are shown in TELEVISION REPAIRER. Scheduled Medication Order 03/05/2011 03/06/2011 03/07/2011 0.9% NaCl infusion (COMPLETED) at 1,000 mL/hr, Intravenous, ONCE, 1 dose, On Thu03/07/11 at 1200, Administer 500 mL Bolus 1201 ($ Given - Prov ider: Jeanne Waller RN) iohexol (OMNIPAQUE 350) contrast (CANCELED) Intravenous, CONTRAST ONCE, Starting on Thu03/07/11 at 1203, Until 03/08/11 at 0331 1413 ($ Given - Prov ider: Rima Damon RT(R)) iohexol (OMNIPAQUE 350) oral contrast (CANCELED) Oral, CONTRAST ONCE, Starting on Thu03/07/11 at 1226, Until 03/08/11 at 0331 1231 ($ Given - Prov ider: Jeanne Waller RN) ondansetron (ZOFRAN) injection 4 mg (COMPLETED) 4 mg, Intravenous, ONCE, 1 dose, On Thu03/07/11 at 1200 1201 ($ Given - Prov ider: Jeanne Waller RN) documented in this encounter
--- OUTSIDE RECORDS SUMMARY | 2024-03-18 04:57 | XMS_ITS | CONTINUITY OF CARE DOCUMENT ---
Author Name zainab lamb Address Unknown Organization [facility] Address [address] [place] [address] Phone [phone] Care Team Providers Care Ad Copy Writer Name Role Phone Dominick HOLLY, Ayad Unavailable [phone] ANISA HOLLY, SHANICE Unavailable [phone] INSURANCE PROVIDERS Payer name Policy type / Coverage type [place] [employer] democr[employer] [place] [facility] [employer] [id number]
--- OUTSIDE RECORDS SUMMARY | 2024-03-18 04:57 | XMS_ITS | Patient Health Summary ---
Author Organization [facility] Address [address] [place] [address] Care Team Providers Care Fibre Optics Jointer Name Role Phone Newton Mendiola MD Primary Care Provider [phone] Note from [facility],non-owned Affiliates and Associated Physician Practices is amultiple site organization consisting of ambulatory clinics and hospital sitesin [place], [place], [place] and [place]. This disclosure is being madepursuant to the Care Everywhere program and may not contain all information available regarding this patient. Last updated 17.[facility] Allergies * Codeine(Excessive Vomiting) * Hydrocodone(Itching,Nausea and/or Vomiting) * Penicillins(Reaction during surgery, not sure of reaction.) Medications * Be aware that medications may not be up to date on this document. Alwaysverify current medications with the patient. * omeprazole (PRILOSEC) 20 MG capsule Take 20 mg by mouth once daily as needed. * hydrocodone-acetaminophen (NORCO) 5-325 MG tablet(Started 03/07/2011) Take 1 Tab by mouth every 6 hours as needed for Pain. * promethazine (PHENERGAN) 25 MG tablet(Started 03/07/2011) Take 1 Tab by mouth every 6 hours as needed for Nausea/Vomiting. * meloxicam (MOBIC) 15 MG tablet(Started 04/23/2019) Take 1 tablet by mouth once daily * acyclovir (ZOVIRAX) 5 % cream(Started 09/13/2018) * aspirin (ASPIRIN) 81 MG tablet Take 81 mg by mouth once daily * buPROPion XL 24hr (WELLBUTRIN-XL) 300 MG tablet(Started 08/19/2017) Take 300 mg by mouth once daily * escitalopram (LEXAPRO) 5 MG tablet(Started 12/31/2017) Take 5 mg by mouth once daily * fluticasone propionate (FLONASE) 50 MCG/ACT nasal spray(Started 07/09/2016) daily. * isosorbide mononitrate CR 24hr (IMDUR) 30 MG tablet(Started 03/25/2018) TAKE 1 TABLET BY MOUTH EVERY DAY * losartan (COZAAR) 25 MG tablet Take 25 mg by mouth once daily * metoprolol succinate XL 24hr (TOPROL XL) 25 MG tablet Take 25 mg by mouth once daily * pantoprazole EC (PROTONIX) 40 MG tablet(Started 08/09/2017) Take 40 mg by mouth once daily * rizatriptan (MAXALT) 10 MG tablet(Started 07/09/2016) TAKE 1 TABLET AT ONSET OF HEADACHE. MAY REPEAT EVERY 2 HOURS NEEDED. MAXIMUM 3 TABLETS IN 24 HOURS. Active Problems Problem Noted Date Diagnosed Date [...] Comments Blood Pressure 143/67 04/23/2019 6:30 PM [employer] Pulse 96 04/23/2019 4:23 PM [employer] Temperature 36.6 ??C (97.8 ??F) 04/23/2019 4:23 PM CS T Respiratory Rate 20 04/23/2019 4:23 PM [employer] Oxygen Saturation 100% 04/23/2019 6:30 PM [employer] Inhaled Oxygen Concentration - - Weight 88.9 kg (196 lb) 04/23/2019 4:23 PM [employer] Height 162.6 cm (5' 4 ) 04/23/2019 4:23 PM [employer] Body Mass Index 33.64 04/23/2019 4:23 PM [employer] Procedures * XR SACRUM AND COCCYX(Performed 04/23/2019) Performed for Fall, initial encounter * CT ABDOMEN PELVIS W CONTRAST(Performed 03/07/2011) Performed for Abdominal pain, left lower quadrant * URINALYSIS REFLEX MICROSCOPIC REFLEX CULTURE(Performed 03/07/2011) * CULTURE URINE(Performed 03/07/2011) * AMYLASE BLOOD(Performed 03/07/2011) * COMPREHENSIVE METABOLIC PANEL(Performed 03/07/2011) * CBC W AUTO DIFFERENTIAL(Performed 03/07/2011) Results * XR SACRUM AND COCCYX (04/23/2019 5:39 PM [employer]) Anatomical Region Laterality Modality Spine Radiographic Fabiola ging 04/23/2019 6:11 PM [employer] Impressions 04/23/2019 6:12 PM [employer] Negative for fracture at this time.. ?? Please see above discussion. Reading Radiologist: Yordan Guardado MD on 04/23/2019 at 6:12 PM Narrative 04/23/2019 6:12 PM [employer] Examination: Sacrum and coccyx 5 views INDICATION: [...] PM Eduardo Robbins PA-C DIAGNOSTIC IMAGING ORDERABLES * CT ABDOMEN AND PELVIS WITH IV CONTRAST (03/07/2011 2:08 PM [employer]) Anatomical Region Laterality Modality Abdomen, Pelvis Computed Tomogra phy 03/07/2011 2:23 PM [employer] Impressions 03/07/2011 2:34 PM [employer] 1. ??Mild pericolonic inflammatory changes in the [...] patient's ER visit. Narrative 03/07/2011 2:34 [address] [employer] CT ??ABDOMEN AND PELVIS, WITH CONTRAST HISTORY: [...] ER visit. Jessenia JONES CT ORDERABLES * (ABNORMAL) URINALYSIS ROUTINE W/REFLEX TO CULTURE (03/07/2011 12:01 PM [employer]) Source CleanCatch [facility] Color UA YELLOW [facility] Character UA CLEAR [facility] Specific [place] UA 1.022 1.002 - 1.030 [facility] [...] WBC UA 20-50(H) 0 - 4 /HPF [facility] RBC UA 5-10(H) 0 - 5 /HPF [facility] Epithelial Cell UA 5-10(H) 0 - 6 /HPF [facility] Mucus UA 1+ none [facility] Bacteria UA 3+ none [facility] Crystals UA NOT DETECTED /HPF [facility] Yeast UA NOT DETECTED none [facility] Culture Urine Culture to be done per protocol. [facility] Urine specimen (specimen) URINE SPECIMEN OBTAINED BY CLEAN CATCH PROCEDURE / Unknown 03/07/2011 12:01 PM [employer] 03/07/2011 12:05 PM [employer] [facility] - URINALYSIS ORDERABLES Performing Organization Address [facility] Co de Phone Number [facility] [address] [place] [address] * CULTURE URINE (03/07/2011 12:01 PM [employer]) Report [facility] Comment: Final - CULTURE <10,000 CFU/mL urogenital/skin ana URINE SPECIMEN OBTAINED BY CLEAN CATCH PROCEDURE / Unknown 03/07/2011 12:01 PM [employer] 03/07/2011 12:24 PM [employer] Md Bean LAB - MICROBIOLOGY O RDERABLES Performing Organization Address [facility] Co de Phone Number [facility] [address] [place] [address] * (ABNORMAL) CBC W AUTO DIFFERENTIAL (03/07/2011 11:54 AM [employer]) WBC 12.1(H) 4.0 - 11.0 K/CUMM [facility] RBC 4.40 3.80 - 5.30 M/CUMM [facility] Hemoglobin 12.8 11.7 - 15.5 gm/dL [facility] Hematocrit 37.4 36 - 46 % [facility] MCV 85.0 80 - 99 fL [facility] MCH 29.1 26 - 34 pg [facility] MCHC 34.2 32 - 36 gm/dL [facility] RDW 13.2 11.5 - 14.5 % [facility] Platelet Count 406(H) 150 - 400 K/CUMM [facility] Granulocytes % 71.7(H) 43 - 70 % [facility] Lymphocytes % 21.4(L) 22 - 41 % [facility] Monocytes % 6.2 2 - 13 % [facility] Eosinophils % 0.5 0 - 6 % [facility] Basophils % 0.2 0 - 2 % [facility] Granulocytes Absolute 8.7(H) 1.7 - 7.7 [facility] Lymphocytes Absolute 2.6 1.0 - 3.0 [facility] Monocytes Absolute 0.8 0.2 - 1.0 [facility] Eosinophils Absolute 0.1 0.0 - 0.4 [facility] Basophils Absolute 0.0 0.0 - 0.1 [facility] Blood specimen (specimen) BLOOD SPECIMEN / Unknown 03/07/2011 11:54 AM [employer] 03/07/2011 11:58 AM [employer] [facility] - HEMATOLOGY ORDERABLES [facility] [address] [place] [address] * (ABNORMAL) COMPREHENSIVE METABOLIC PANEL (03/07/2011 11:54 AM [employer]) Glucose 96 70 - 110 mg/dL [facility] BUN 14 7 - 21.0 mg/dL [facility] Creatinine 0.58 0.5 - 1.3 mg/dL [facility] BUN/Creatinine Ratio 24.1 [facility] Sodium 140 136 - 145 mmol/L [facility] Potassium 3.9 3.5 - 5.1 mmol/L [facility] Chloride 108(H) 98 - 107 mmol/L [facility] CO2 21(L) 22 - 30 mmol/L [facility] Anion Gap 11 [facility] Calcium 8.6 8.5 - 10.1 mg/dL [facility] Alkaline Phosphatase 83 38 - 126 U/L [facility] ALT 30 12.0 - 78.0 U/L [facility] AST 16 5.0 - 40.0 U/L [facility] Bilirubin Total 0.4 0.2 - 1.0 mg/dL [facility] Protein Total 7.6 6.4 - 8.2 gm/dL [facility] Albumin 3.8 3.4 - 5.0 gm/dL [facility] eGFR by MDRD >60 SEE BELOW ml/min/1.7 3 m2 [facility] Comment: >60 Normal Chronic Disease <60 Renal Failure <15 Blood specimen (specimen) BLOOD SPECIMEN / Unknown 03/07/2011 11:54 AM [employer] 03/07/2011 11:58 AM [employer] [facility] - CHEMISTRY O RDERABLES Performing Organization Address [facility] Co de Phone Number [facility] [address] [place] [address] * AMYLASE BLOOD (03/07/2011 11:54 AM [employer]) Amylase 23 15 - 115 U/L [facility] Blood specimen (specimen) BLOOD SPECIMEN / Unknown 03/07/2011 11:54 AM [employer] 03/07/2011 11:58 AM [employer] [facility] - CHEMISTRY O RDERABLES Performing Organization Address [facility] Co de Phone Number [facility] [address] [place] [address] Care Teams [employer] Jointer Relationship Specialty Start Date End Date Newton Mendiola MD PCP - General Internal Medicine 04/23/19
--- OUTSIDE RECORDS SUMMARY | 2024-03-18 04:57 | XMS_ITS | Referral Summary ---
Author Organization [facility] Address [address] [place] [address] Care Team Providers Care Stunner And Shackler Name Role Phone Newton Mendiola MD Primary Care Provider Source Comments [facility],non-owned Affiliates and Associated Physician Practices is amultiple site organization consisting of ambulatory clinics and hospital sitesin [place], [place], [place] and [place]. This disclosure is being madepursuant to the Care Everywhere program and may not contain all information available regarding this patient. Last updated 17.[facility] Allergies Active Allergy Reactions Criticality Noted Date [...] Comments Blood Pressure 143/67 04/23/2019 6:30 PM [employer] Pulse 96 04/23/2019 4:23 PM [employer] Temperature 36.6 ??C (97.8 ??F) 04/23/2019 4:23 PM CS T Respiratory Rate 20 04/23/2019 4:23 PM [employer] Oxygen Saturation 100% 04/23/2019 6:30 PM [employer] Inhaled Oxygen Concentration - - Weight 88.9 kg (196 lb) 04/23/2019 4:23 PM [employer] Height 162.6 cm (5' 4 ) 04/23/2019 4:23 PM [employer] Body Mass Index 33.64 04/23/2019 4:23 PM [employer] Plan of Treatment Not on file Care Teams Stunner And Shackler Relationship Specialty Start Date End Date Newton Mendiola MD PCP - General Internal Medicine 04/23/19
--- OUTSIDE RECORDS SUMMARY | 2024-03-18 04:57 | XMS_ITS | Clinical Summary ---
Author Organization [facility] Address [address] [place] [address] Care Team Providers Care Model And Pattern Supervisor Name Role Phone Newton Mendiola MD Primary Care Provider [phone] Sly Cade MD Unavailable [phone] Allergies Active Allergy Reactions Criticality Noted Date [...] complication, without long-term current use of insulin ([facility]) 11/22/2020 Assessment & Plan (12/09/2023 2:47 PM [...] Diagnosed Date Resolved Date Laceration of right rob brewer, initial encounter 10/10/2021 08/28/2023 Overview (10/10/2021): Added automatically from request for surgery [id number] Abdominal pain 08/27/2021 08/28/2023 Assessment & Plan [...] infarct vs growth. Patient was [facility]ferred to [facility] for further management by Vascular [...] Abdominal pain, left lower quadrant 03/07/2011 11/22/2020 Encounters Date Type Department Care Team Description 03/11/2024 Orders Only [facility] [address] [address] Newton Mendiola MD 03/10/2024 Orders Only [facility] [address] [place] [address] Newton Mendiola MD 12/17/2023 2:15 PM CDT Office Visit [facility] [place] [address] [place] [address] Faith Burroughs NP Acute middle ear effusion, right (Primary Dx) from Last 3 Months Immunizations Name Administration Dates Next Due Influenza, Trivalent, IM (MDV) 01/10/2014 Tdap 04/25/2023 Surgical History Surgery Date Site/Laterality Comments COLONOSCOPY CHOLECYSTECTOMY ROTATOR CUFF REPAIR 03/16/2009 - 03/15/2010 OTHER SURGICAL HISTORY vocal cord nodule removal THYROID SURGERY 03/16/2004 - 03/15/2005 CYST REMOVAL hodgkins biopsy PORT PLACEMENT CHEST >5 YEARS 03/16/1992 - 03/15/1993 Medical History Medical History Date Comments CHF (congestive heart failure) (CMS/HCC) (HCC) Hypertension Hodgkin lymphoma (HCC) 09/09/2016 COVID-19 virus infection 01/15/2021 GERD (gastroesophageal reflux disease) Irritable bowel syndrome Thyroid nodule Kidney stone Bipolar disorder (HCC) Depression Family History Medical History Relation Name Comments Diabetes Father Hyperlipidemia Father Hypertension Father Hyperlipidemia Mother Hypertension Mother Relation Name Status Comments Father Alive Mother Alive Social History Tobacco Use Types Packs/Day Years [...] and Family Not on file 2021 Attends Islam Services Not on file 01/16 Active Member [...] place to sleep or slept in a long term (including now)? No 2021 Comments No Sex and Gender Information Value Date Recorded Sex Assigned at Not on file Legal Sex Female 7:55 AM SENIOR HADOOP DEVELOPER Gender Identity Not on file Sexual Orientation Not on file Obstetrics History Last Filed Vital Signs Vital Sign Reading [...] cancer screening COLONOSCOPY Nausea Colon cancer screening Health Maintenance Due Date Last Done Comments Cervical Cancer Screening 1965 Depression Screening 1965 Hepatitis C Screening 1965 Dilated Eye Exam 1965 Foot Exam 1965 Hepatitis B Screening 1983 Regular Well Visit/Exam 18-64 1983 Breast Cancer Screening-Mammogram 09/03/2022 Influenza Vaccine (#1) 2023 01/10/2014 Hemoglobin A1C 06/07/2024 12/09/2023, 08/14, 08/27/2021, Additional history exists Albumin Creatinine Ratio, Urine 08/27/2024 08/28/2023 Lipid Panel 08/27/2024 08/28/2023, 03/0 05/2022, 08/27/2021, Additional history exists eGFR 08/27/2024 08/28/2023, 07/3 03/2022, 05/16/2022, Additional history exists Pneumococcal vaccine <65 (1 of 2 - PCV) 11/23/2024 Postponed from 1971 (Patient declined, but will receive in the future) Zoster Vaccine (1 of 2) 12/08/2024 Post poned from 01/17/1984 (Patient declined, but will receive in the future) Colon Cancer Screening-Colonoscopy 10/04/2031 10/03/2021 DTaP/Tdap/Td Vaccine (2 - Td or Tdap) 04/25/2033 04/25/2023 Colon Cancer Screening-CT Colonography Discontinued 10/03/2021 Colon Cancer Screening-DNA Stool Discontinued 10/03/2021 Colon Cancer Screening-FIT Discontinued 10/03/2021 Colon Cancer Screening-Sigmoidoscopy Discontinued 10/03/2021 Procedures Procedure Name Priority Date/Time Associated Diagnosis Comments SCAN - LABS 03/11/2024 8:48 AM SENIOR HADOOP DEVELOPER SCAN - RADIOLOGY/IMAGING 03/11/2024 6:22 AM SENIOR HADOOP DEVELOPER SCAN - LABS 03/11/2024 2:10 AM SENIOR HADOOP DEVELOPER SCAN - LABS 03/10/2024 10:15 PM SENIOR HADOOP DEVELOPER SCAN - LABS 03/10/2024 10:15 PM SENIOR HADOOP DEVELOPER SCAN - RADIOLOGY/IMAGING 03/10/2024 6:46 PM SENIOR HADOOP DEVELOPER POCT HEMOGLOBIN A1C Routine 12/09/2023 2 :02 [...] long-term current use of insulin (CMS/HCC) (HCC) POCT LIPID PANEL Routine 08/28/2023 10:4 1 AM CDT Mixed hyperlipidemia Type 2 diabetes mellitus without complication, without long-term current use of insulin (CMS/HCC) (HCC) COLONOSCOPY 10/03/2021 3:08 PM CDT from Last 3 Months or Most Recently Relevant to Health Maintenance Results * SCAN - LABS (03/11/2024 8:48 AM SENIOR HADOOP DEVELOPER) us Newton Mendiola MD Final Result * SCAN - RADIOLOGY/IMAGING (03/11/2024 6:22 AM SENIOR HADOOP DEVELOPER) Anatomical Region Laterality Modality Other Result Jessee Mendiola MD Final Result * SCAN - LABS (03/11/2024 2:10 AM SENIOR HADOOP DEVELOPER) Result Jessee Mendiola MD Final Result * SCAN - LABS (03/10/2024 10:15 PM SENIOR HADOOP DEVELOPER) Result Jessee Mendiola MD Final Result * SCAN - LABS (03/10/2024 10:15 PM SENIOR HADOOP DEVELOPER) us Newton Mendiola MD Final Result * SCAN - RADIOLOGY/IMAGING (03/10/2024 6:46 PM SENIOR HADOOP DEVELOPER) Anatomical Region Laterality Modality Other Result Jessee Mendiola MD Final Result * (ABNORMAL) POCT hemoglobin A1c (12/09/2023 2:02 PM CDT) Hemoglobin A1C, POC 6.3 4.0 - 5.6 % Blood 12/09/2023 2:02 PM CDT us Newton Mendiola MD POINT OF CARE TEST ORDERABLES [...] AM CDT Performed at: ??01 - [facility] [address] ??[id number] Aerial Installer: Vernon Connell PhD, Phone: ??[phone] us Vicky Donaldson CUTTING AND SPLICING SUPERVISOR LAB URINE ORDERABLES Fin al Result [facility] - 01 * (ABNORMAL) Comprehensive metabolic [...] AM CDT Performed at: ??01 - [facility] [address] ??[id number] Aerial Installer: Vernon Connell PhD, Phone: ??[phone] Vicky Donaldson NP LAB BLOOD ORDERABLES Fin [...] Female Attending MD: Brunilda Arzola M.D. Room: [facility] ENDOSCOPY ROOM 3 Note Status: Finalized Procedure: Colonoscopy Indications: Screening for colorectal malignant neoplasm Referring MD: Paige Simmons Providers: Brunilda Arzola M.D. Medicines: Monitored Anesthesia [...] scope was passed under direct vision.The [id number] endoscope was introduced through the anus [...] On: 10/03/2021 3:08 PM Recognized by the [employer] for promoting quality in endoscopy Brunilda Arzola MD ENDOSCOPY PROCEDURES Final Re sult from Last 3 Months or Most Recently Relevant to Health Maintenance Insurance [facility] CHOICE PLUS [facility] CHOICE PLUS [facility] [place] [id number] [facility] CHOICE PLUS [facility] CHOICE PLUS [facility] CHOICE PLUS Advance Directives For more information, please contact: [phone] * Full Code (Latest Code Status on File) Date Activated Date Inactivated Comments 10/03/2021 1:58 PM 10/03/2021 8:24 PM * Full Code Date Activated Date Inactivated Comments 01/11/2021 3:56 PM 01/15/2021 4:01 PM * Full Code Date Activated Date Inactivated Comments 05/20/2020 5:54 PM 05/21/2020 8:50 PM Care Teams Model And Pattern Supervisor Relationship Specialty Start Date End Date Newton Mendiola MD [address] [address] PCP - General 06/09/16 Sly Cade MD [address] [address] Referring Physician Cardiology 12/07/18
--- OUTSIDE RECORDS SUMMARY | 2024-03-18 04:58 | XMS_ITS | Encounter Summary ---
Author Organization [facility] Address [address] [place] [id number] Care Team Providers Care Customs Compliance Manager Name Role Phone Newton Mendiola MD Primary Care Provider [phone] Sly Cade MD Unavailable [phone] Reason for Visit * Reason Comments Cold Symptoms Ear pain, Jaw pain, Headache. Was seen here on 03/02/2023, got better for two weeks and then it has been back since then. No OTC. Encounter Details Date Type Department Care Team (Late st Contact Info) Description 07/16/2023 6:30 PM CDT Office Visit [facility] [place] [address] [place] [address] Faith Burroughs, BRIT [address] [facility] [place] [address] Bacterial sinusitis (Primary Dx) Social History Tobacco Use Types Packs/Day Years [...] and Family Not on file 2021 Attends [employer] Not on file 01/16 Active Member [...] place to sleep or slept in a snf (including now)? 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 Gender Identity Not on file Sexual Orientation Not on file documented as of this encounter Last Filed Vital Signs Vital Sign Reading Time Taken Comments Blood Pressure 112/64 07/16/2023 6:29 PM CDT Pulse 92 07/16/2023 6:29 PM CDT Temperature 36.5 ??C (97.7 ??F) 07/16/2023 6:29 PM CD T Respiratory Rate 15 07/16/2023 6:29 PM CDT Oxygen Saturation 98% 07/16/2023 6:29 PM CDT Inhaled Oxygen Concentration - - Weight 80.7 kg (178 lb) 07/16/2023 6:29 PM CDT Height 162.6 cm (5' 4 ) 07/16/2023 6:29 PM CDT Body Mass Index 30.55 07/16/2023 6:29 PM CDT documented in this encounter Patient Instructions * Patient Instructions* Faith Burroughs NP - 07/16/2023 6:30 PM CDT Research has proven that unless you are running a fever or symptoms start to improve then get worseagain, sinus infections are typically viral until days 9-10. Finish the entire antibiotic prescription. Take this with food. Eat yogurt or take probiotic daily while on antibiotics. Symptomatic treatments include: - Over the counter antihistamine such as loratadine (Claritin) or cetirizine (Zyrtec) to reduce secretions. The D formula includes pseudoephedrine and can be helpful as a decongestant but SHOULD NOT BE USED IF YOU HAVE A HISTORY OF HIGH BLOOD PRESSURE. - Coricidin HBP may be taken for congestion if you have a history of high blood pressure. - Topical decongestants are another option such as Afrin. Do not use for more than 3 days as it cancause rebound congestion worse than original congestion. - Tessalon, Dextromethorphan (Robitussin) or Delsym for cough - Guafenesin (Mucinex) to thin secretions - Acetaminophen (Tylenol), ibuprofen (Motrin, Advil), or Aleve (naproxen) for pain or fever. - The use of hypertonic saline to irrigate nasal passageways can be helpful. Over the counter systems include Neti Pot and Nasopure. Use with distilled water. - Salt water gargles and throat lozenges can be helpful for sore throat. - To prevent spreading the illness to others cover your sneeze and cough into your arm and not yourhand, don't allow others to eat or drink with the same utensils or glass, and use hand socially responsible investment adviser before touching people or common surfaces. - Apply warm packs to face to facilitate sinus drainage. - Use cool mist humidifier in bedroom at night. - Increase fluid consumption and rest. - Follow up with your PCP in 1 week or sooner if symptoms worsen or are not improving as planned. - If you experience any shortness of breath, chest pain, or high fever >101, go to the EmergencyRoom. documented in this encounter Ordered Prescriptions Prescription Sig Dispense Quantity Refills Last Filled Start Date End Date doxycycline monohydrate (MONODOX) 100 mg capsuleIndications :Bacterial sinusitis Take 1 capsule (100 mg total) by mouth 2 (two) times a day for 10 days 20 capsule 07/16/2023 4 doxycycline monohydrate (MONODOX) 100 mg capsule Take 1 capsule (100 mg total) by mouth 2 (two) times a day for 10 days 20 capsule 07/16/2023 4 documented in this encounter Progress Notes * Faith Burroughs NP - 07/16/2023 6:30 PM CDT Images from the original note were not included. Subjective/Objective Patient ID: Katy Sauceda is a 58 y.o. female. Chief Complaint Cold Symptoms (Ear pain, Jaw pain, Headache. Was seen here on 03/02/2023, got better for two weeks and then it has been back since then. No OTC. ) Patient presents to convenient care for bilateral ear pain, pain in jaw, pressure in sinuses, and headache x2 weeks. Patient states that she has a history of sinus infections. She states that she wasseen in office in February and was treated for a sinus infection. She states that she never completely felt better even after finishing antibiotics. She has been taking OTC Zyrtec for her symptoms. She denies any fevers. Review of Systems All systems reviewed and are negative or non contributory for this patient's presentation today other than as stated in the HPI. Physical Exam Vitals reviewed. Constitutional: General: She is not in acute distress. Appearance: Normal appearance. She is well-developed. She is not ill-appearing. HENT: Head: Normocephalic. Right Ear: Ear canal and external ear normal. A middle ear effusion is present. Left Ear: Ear canal and external ear normal. A middle ear effusion is present. Nose: No congestion or rhinorrhea. Right Sinus: Maxillary sinus tenderness present. No frontal sinus tenderness. Left Sinus: Maxillary sinus tenderness present. No frontal sinus tenderness. Mouth/Throat: Lips: [place]. Mouth: Mucous membranes are moist. Pharynx: Oropharynx is clear. Eyes: General: Right eye: No discharge. Left eye: No discharge. Conjunctiva/sclera: Conjunctivae normal. Cardiovascular: Rate and Rhythm: Normal rate and regular rhythm. Pulmonary: Effort: Pulmonary effort is normal. No respiratory distress. Breath sounds: Normal breath sounds and air entry. Musculoskeletal: General: Normal range of motion. Cervical back: Neck supple. Lymphadenopathy: Head: Right side of head: No tonsillar adenopathy. Left side of head: No tonsillar adenopathy. Cervical: No cervical adenopathy. Skin: General: Skin is warm and dry. Findings: No rash. Neurological: Mental Status: She is alert and oriented to person, place, and time. Mental status is at baseline. Psychiatric: Attention and Perception: Attention normal. Mood and Affect: Mood normal. Behavior: Behavior normal. Behavior is cooperative. Thought Content: Thought content normal. Judgment: Judgment normal. Vitals: 07/16/23 1829 BP: 112/64 Pulse: 92 Resp: 15 Temp: 36.5 ??C (97.7 ??F) TempSrc: Tympanic SpO2: 98% Weight: 80.7 kg (178 lb) Height: 162.6 cm (5' 4 ) Assessment/Plan Doxycycline prescribed for sinusitis Discussed OTC decongestants for congestion- Sudafed/Mucinex/Flonase Motrin/Tylenol for pain/fever Antihistamines- Zyrtec, Benadryl can be used for runny nose. Discussed hydration-Drink plenty of water & get plenty of rest A humidifier may also help with congestion May try sinus rinses or steam- Saline rinses Follow up with your PCP in 7 days if you are not getting better Diagnoses and all orders for this visit: Bacterial sinusitis (Primary) - doxycycline monohydrate (MONODOX) 100 mg capsule; Take 1 capsule (100 mg total) by mouth 2 (two) times a day for 10 days No results found for this or any previous visit (from the past 4 hour(s)). Patient Education: Disposition Treatment plan including expectations, follow up, and return precautions discussed with patient/parent, verbalizes understanding. Medication dosage, use, and potential adverse reactions discussed with patient/parent. Advised to follow up with PCP if symptoms do not resolve as expected or sooner if condition worsens. Signs/symptoms warranting ER evaluation reviewed. Patient and/or guardian was given an opportunity to ask questions, questions answered. Faith Burroughs NP documented in this encounter Plan of Treatment Scheduled Procedures Name Priority Associated Diagnoses Date/Ti me ESOPHAGOGASTRODUODENOSCOPY Nausea Colon cancer screening COLONOSCOPY Nausea Colon cancer screening documented as of this encounter Visit Diagnoses Diagnosis Bacterial sinusitis- Primary Unspecified sinusitis (chronic) documented in this encounter Discontinued Medications Medication Sig Discontinue Reason Start Date End Da te doxycycline monohydrate (MONODOX) 100 mg capsule Take 1 capsule (100 mg total) by mouth 2 (two) times a day for 10 days 07/16/2023 07/16/2023 documented as of this encounter Care Teams Customs Compliance Manager Relationship Specialty Start Date End Date Newton Mendiola MD [address] [address] PCP - General 06/09/16 Sly Cade MD [address] [address] Referring Physician Cardiology 12/07/18 documented as of this encounter
--- OUTSIDE RECORDS SUMMARY | 2024-03-18 04:58 | XMS_ITS | Encounter Summary ---
Author Organization [facility] Address [address] [place] [address] Phone Care Team Providers Care Lead Former Name Role Phone Newton Mendiola MD Primary Care Provider [phone] Sly Cade MD Unavailable [phone] Reason for Visit * Consultation (Routine) - Authorized Specialty Diagnoses / Procedures Referred By Contkira t Referred To Contact Cardiology Diagnoses LBBB (left bundle branch block) Newton Mendiola MD [address] [facility] [address] [place] [address] Phone: tel: fax: [facility] (All Locations) Referral ID Status Reason Start Date Expiration Date Visits Requested Visits Authorized [id number] Authorized Specialty Services Required 06/26/2023 07/25/2024 12 12 Encounter Details Date Type Department Care Team (Late st Contact Info) Description 07/07/2023 4:00 PM CDT Office Visit [facility] Cardiology [facility] Building [address] [place] [id number] Matt Remy MD [address] [facility] [address] [place] [address] NICM (nonischemic cardiomyopathy) (CMS/HCC) (HCC) (Primary Dx); LBBB (left bundle branch block); HFrEF (heart failure with reduced ejection fraction) (CMS/HCC) (HCC) Social History Tobacco Use Types Packs/Day Years [...] and Family Not on file 2021 Attends [employer] Not on file 01/16 Active Member [...] place to sleep or slept in a nursing home (including now)? 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 Remy's Advice for a Heart Healthy Life Ask yourself why you want to improve your health. Remember this as you work through the rest this document Find something that works! It should be something that is both sustainable and enjoyable. Eating healthy foods should not be stressful! Focus on your mental health and wellness. Journaling your thoughts helps you understand them more clearly. This reduces stress and helps you feel better! Journaling is free, does not take a lot of time, and does not have any side effects It is okay to indulge on food items in moderation. It???s imperative to consider the combination of foods in your nutrition plan instead of viewing your diet in a single-food components A plate, not a pill approach. Eat fish, no fish pills Minimize processed foods, focus on whole foods You can NOT out-exercise a poorly planned nutrition plan What is different types of exercise good for? Weight train for your metabolism Do cardio for your mental & heart health Walk for your longevity Organic foods are NOT nutritionally superior to conventional foods Stay well hydrated. Use a urine color & hydration status chart to ensure that you are well hydrated. We can lose up to 1.5 liters of body water before we feel thirsty Journaling Concepts Set aside a few minutes every day for this. You can draw, you can write, do whatever feels right. It is your own private place to discuss and create whatever to express your feelings Use your journal on you see fit. It is yours! Journaling can transform your mental fitness, your emotional well-being, and your physical fitness Exercise & Training Concepts Current guidelines recommend at least 150 minutes of moderate-intensity exercise a week and at least two sessions of strength training a week. Stringing together days and then weeks of exercise is what enables you to create a SUCCESSFUL TRAINING program! Light intensity = able to speak in full sentences Moderate intensity = able to say a few words High intensity = barely able to speak Cardio versus strength training Cardio Long-term cardiovascular protection Improves your overall heart health Strength Trainging Weight Loss Increase in muscle mass will improve posture, pain, and most importantly will increase your basal metabolic rate. This will allow you to burn more calories over time Polarized Training Multiple studies that demonstrated that polarized training resulted in improved exercise performance; this is when you spend your time exercising at [id number] intensity and high intensity exercise (the poles of the intensity spectrum). The most common polarized training regimen has you spend a majority of your time in the low intensity exercise zones. This is a heart rate zone where you will have a cardiovascular benefit but below where you will fatigue easy. Using a specialized non-invasive test called a cardiopulmonary stress test (CPET), can we determineall of your metabolic and cardiac thresholds which allows us to calculate your exact heart rate fora personalized training zone. We perform this in our [facility]. Please let us know if you would like us to schedule one for you. Food & Nutrition Concepts What to start with It is best to eat whole foods (IE those that have had minimal processing) Eat as little processed meats (garrett, deli meats, etc) Balance whole grains, vegetables, and protein with some fruits and fats mixed in Realities of Fat Loss Not all healthy foods are low calorie Not all low calorie foods are healthy Good Nutrition Bad Nutrition Low Calorie Vegetables Artifical sweeteners Sugar substitutes High Calorie Nuts, avocado, olive oil Plant-Based Diet A diet that minimizes or eliminates animal products and proteins is hard to maintain but has the best cardiovascular benefits This is the only diet that has proven to reverse heart blockages Mediterranean Diet Numerous studies demonstrate that a Mediterranean diet improves heart function and improves life span Focus on foods high in healthy fats (fish, olive oil, nuts, grains, legumes, fruits, veggies) Intermittent Fasting What is it? Cycling periods of eating and fasting Fasting = not eating or consuming calories; drinking water, chewing gum, and coffee/tea without milk or sugar are all okay while intermittent fasting Eating = eat sensibly between fasting periods, do NOT binge eat Movement and exercise in a fasting state can burn more fat How to try it? Start fasting 8 hours, then add 1 hour of fasting time until you reach a 16 hour fast. A common approach is to eat from noon to 8PM Effects If done appropriately, can lead to reduced caloric intake and subsequent weight loss If you are diabetic, then would advise NOT utilizing this lifestyle Keto Diet History Designed in the 1920s for children with epilepsy who didn't respond to medications What = fat 75-80% + protein 15% + carbohydrates <5% This ratio anticipates that glucose reserves will be depleted after 5 days. Thus, no more fat oxidation and accumulation of ketone bodies Often miss foods rich in complex carbohydrates such as fruits, vegetables, and legumes Goal = reducing carbohydrate availability and maximizing fatty acid activation as the predominant fuel source for exercise Eating fewer calories as fats have more satiety (I.E you feel more full after eating) There is a balance between weight loss and cardiovascular risk reduction You are unlikely to have both weight loss and lower heart risks. In order to have both weight loss and lower heart risks, you need to be on a good keto good keto = nuts, seeds, beans, fish, etc bad keto = steaks, garrett, etc Effects Potential good effect = weight loss Potential bad effects = increased atherosclerosis (heart blockages), especially if you have high cholesterol or a history of coronary artery disease documented in this encounter Progress Notes * Matt Remy MD - 07/07/2023 4:00 PM CDT Images from the original note were not included. Cardiology Return Clinic Visit Visit Date: 07/07/23 Patient Diagnosis List NICM Informed of LBBB during pre-op EKG years ago , then Dx with NICM in 2017 on incidental TTE with [facility] 07/2016 demonstrating no angiographically significant CAD TTE 12/29/18 = LVEDD 4.3 cm with LVEF 41% & global hypokinesis CMR 02/01 = LVEF 44%, no delayed contrast enhancement to suggest infiltrative cardiomyopathy Long RP tachycardia 05/20/20 on Kardia = likely atrial tachycardia Non-cardiac History of Hodgkins (around 1992) treated with chest XRT Type 2 diabetes mellitus Intolerance = metformin (abdominal pain 11/2020), entresto (palpitations, dizziness, & fatigue) SARS-CoV-15 December 2020 (not hospitalized but course 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 As you recall, she is a pleasant 58 y.o. female that we follow for non-ischemic cardiomyopathy. Since her last visit in February 2023, she is continued to do well from a cardiovascular perspective. Her dyspnea on exertion has improved and she overall feels quite well. She endorse any angina, chest tightness, or dyspnea proportion to activity. ROS: As her HPI, otherwise 12 point review of systems reviewed and negative Objective CV Medications Aspirin 81 mg Atorvastatin 40 mg Dapagliflozin 10 mg Losartan 50 mg Metoprolol XL 100 mg qd Spironolactone 25 qd Vitals & Physical Exam HR: 77 BP: 137/85 Weight: 178 lbs GEN: pleasant female in NAD; somewhat tearful HENT: NCAT, MMM, anicteric, no conjunctival pallor CVS: RRR, S1S2, no rubs/murmurs/gallops, prominent carotid pulse but no JVP appreciated, no edema PULM: non-labored, good inspiratory effort, no rales ABD: soft, NTND, obese EXT: equal radial pulses, no malformations Neuro: no abnormal movements, nonfocal exam Skin: warm, dry Cardiac Studies EKG 12/29/18 = NSR 83, normal axis, left bundle branch block, Lipids 11/22/2020 = TC 232, HDL 31, LDL 166, TG 176 Lipids 05/2022 = TC 130, TG 205, HDL 25, LDL 64 A1c 11/22/20: 6.2% TTE 03/02/20 = LVEDD 5.1 cm, LVEF 46% with dyschronous septum, imparied relaxation, no significant valvular abnormalitites & no major change from 2018 TTE 12/10/20 = mildly reduced LVEF 51% with no appreciable changes from 02/2020, paradoxical septal motion, pseudo normal TTE 06/2023 = stable and unchanged Kardea capture during palpitations 05/20/20 Assessment Recommendations Non-Ischemic Cardiomyopathy + HFmrEF Hypertension Hyperlipidemia Atrial tachycardia Type 2 diabetes mellitus She is euvolemic and regular on exam with NYHA II symptoms. Her echocardiogram today continues to demonstrate mid range ejection fraction with her known left bundle branch block and paradoxical septal motion. Her RV is exceptionally functioning on imaging. She appears to be at her currently tolerating maximum dose of guideline directed medical therapies will not plan on making any changes. She was off the semaglutide for few weeks due to some flu-like symptoms and would like to restart on this,I have asked her to restart 0.25 mg weekly and then if this is tolerated up to 0.5 mg weekly for least two weeks and then let us know so we can discuss the next titration schedule. Thank you for the opportunity to participate in the care of this wonderful patient. We will plan onseeing them back in 6 months time. Please do not hesitate to contact us with any questions or concerns that may arise in the interim. Matt Remy MD on 07/07/2023 at 4:12 PM Park Rangerweb coordinator (Cardiology) Director, Sports Cardiology [facility] in [place] documented in this encounter Plan of Treatment Scheduled Procedures Name Priority Associated Diagnoses Date/Ti me ESOPHAGOGASTRODUODENOSCOPY Nausea Colon cancer screening COLONOSCOPY Nausea Colon cancer screening documented as of this encounter Visit Diagnoses Diagnosis NICM (nonischemic cardiomyopathy) (CMS/HCC) (HCC)- Primary LBBB (left bundle branch block) Other left bundle branch block HFrEF (heart failure with reduced ejection fraction) (CMS/HCC) (HCC) documented in this encounter Discontinued Medications Medication Sig Discontinue Reason Start Date End Da te azithromycin (ZITHROMAX) 250 mg tabletIndications:Acute maxillary sinusitis, recurrence not specified Take 2 tablets the first day, then 1 tablet daily for 4 days. Therapy completed 03/02/2023 07/07/2023 isosorbide mononitrate ER (IMDUR) 30 mg 24 hr tablet Take 1 tablet (30 mg total) by mouth daily Therapy completed 07/07/2023 documented as of this encounter Orders Outpatient Referral Count Last Ordered Date Fir st Ordered Date AMB REFERRAL TO CARDIOLOGY 1 07/07/2023 documented in this encounter Care Teams Lead Former Relationship Specialty Start Date End Date Newton Mendiola MD [address] [address] PCP - General 06/09/16 Sly Cade MD [address] [address] Referring Physician Cardiology 12/07/18 documented as of this encounter
--- OUTSIDE RECORDS SUMMARY | 2024-03-18 04:58 | XMS_ITS | Encounter Summary ---
Author Organization [facility] Address [address] [place] [address] Phone Care Team Providers Care Search And Rescue Officer Name Role Phone Newton Mendiola MD Primary Care Provider [phone] Sly Caed MD Unavailable [phone] Reason for Referral * Cardiology (Routine) - Closed Specialty Diagnoses / Procedures Referred By Contkira t Referred To Contact Diagnoses NICM (nonischemic cardiomyopathy) (CMS/HCC) (HCC) Procedures Transthoracic Echo (TTE) Complete W Doppler/CF Matt Remy MD Phone: tel: fax: [facility] Referral ID Status Reason Start Date Expiration Date Visits Re quested Visits Authorized [id number] Closed 09/09/2022 10/09/2023 1 1 Encounter Details Date Type Department Care Team (Late st Contact Info) Description 09/09/2022 1:15 PM CDT Office Visit [facility] Cardiology [facility] Medical Office Building [address] [place] [address] Matt Remy MD [address] [place] [address] [address] [place] [address] NICM (nonischemic cardiomyopathy) (CMS/HCC) (HCC) (Primary Dx); Mixed hyperlipidemia; Essential hypertension; Diabetes mellitus type II, non insulin dependent (CMS/HCC) (HCC) Social History Tobacco Use Types Packs/Day Years Used Date Smoking Tobacco: Former Cigarettes 0.5 10 1 990 - 1999 Smokeless Tobacco: Never Alcohol Use Standard Drinks/Week Comments No 0 (1 standard drink = 0.6 oz pur e alcohol) Social Connection and Isolation Panel [NHANES] A nswer Date Recorded Frequency of Communication with Friends and Fami ly Not on file 2021 Frequency of Social Gatherings with Friends and Family Not on file 2021 Attends Baptism Services Not on file 01/16 Active Member [...] place to sleep or slept in a prison (including now)? 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 Gender Identity Not on file Sexual Orientation Not on file documented as of this encounter Last Filed Vital Signs Vital Sign Reading Time Taken Comments Blood Pressure 122/78 09/09/2022 1:16 PM CDT Pulse 77 09/09/2022 1:16 PM CDT Temperature - - Respiratory Rate - - Oxygen Saturation 98% 09/09/2022 1:16 PM CDT Inhaled Oxygen Concentration - - Weight 87 kg (191 lb 12.8 oz) 09/09/2022 1:16 PM CDT Height 162.6 cm (5' 4 ) 09/09/2022 1:16 PM CDT Body Mass Index 32.92 09/09/2022 1:16 PM CDT documented in this encounter Patient Instructions * Patient Instructions* Matt Remy MD - 09/09/2022 1:15 PM CDT We are starting a new medication to help reduce your risk of heart events while also increasing your ability to lose weight. The type of medication is a glucagon-like peptide-1 (GLP-1) receptor agonist and works by 1) slowing your stomach emptying time so you feel full and eat less, 2) improves theregulation of your appetite and 3) improves your blood sugar metabolism. Semaglutide (Ozempic) Pens come as 0.25/0.5mg (multi-dose), 1mg, 2mg Take 0.25mg once a week (same day of the week) for a total of four weeks. Then increase to 0.5mg once a week (same day of the week) for a total of four weeks. Semaglutide can be further increased to 1mg once a week and even higher to 2mg once a week Please make sure that you are well-hydrated while on this medication. You also need to be mindful of your eating portions as overeating will likely lead to gastrointestinal side effects. documented in this encounter Ordered Prescriptions Prescription Sig Dispense Quantity Refills Last Filled Start Date End Date semaglutide (Ozempic) 0.25 mg or 0.5 mg(2 mg/1.5 mL) pen injector injection Inject 0.5 mg under the skin once a week for 28 days 1.5 mL 09/09/2022 10/07/2022 semaglutide (OZEMPIC) 0.25 mg or 0.5 mg(2 mg/1.5 mL) pen injector injectionIndicatio ns:type 2 diabetes mellitus Inject 0.5 mg under the skin every 7 days 1.5 mL 09/09/2022 10/09/2022 documented in this encounter Progress Notes * Matt Remy MD - 09/09/2022 1:15 PM CDT Images from the original note were not included. Cardiology Return Clinic Visit Visit Date: 09/09/22 Patient Diagnosis List NICM Informed of LBBB during pre-op EKG years ago , then Dx with NICM in [address] 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 As you recall, she is a pleasant 57 y.o. female that we follow for non-ischemic cardiomyopathy. Since her last visit in February 2022 with our MELANGEUR OPERATOR Renae, she has done well from a cardiovascular perspective. She is noted some increase in her dyspnea on exertion over the past few months as she is issues recently hiking and started noticing feeling more shortness of breath. She states upon returning she also feels some dyspnea when going up a flights of stairs. She does not endorse any orthopnea, PND, or lower extremity swelling. She otherwise remains quite active around the house and does notendorse any limitations in her activities of daily living. She continues to exercise but has not been able to lose weight and is interested in trying a Gelpi sharp two agonist in addition to her SGLT2 inhibitor. ROS: As her HPI, otherwise 12 point review of systems reviewed and negative Objective CV Medications Aspirin 81 mg Atorvastatin 40 mg Dapagliflozin 10 mg Imdur 30 mg Losartan 50 mg Metoprolol XL 100 mg qd Spironolactone 25 qd Vitals & Physical Exam HR: 77 BP: 122/78 Weight: 191 lbs GEN: pleasant female in NAD; somewhat [...] valvular abnormalitites & no major change from 2019 TTE 12/10/20 = mildly reduced LVEF 51% with no appreciable changes from 02/2020, paradoxical septal motion, pseudo normal Kardea capture during palpitations 05/20/20 Assessment Recommendations Non-Ischemic Cardiomyopathy + HFmrEF Hypertension Hyperlipidemia Atrial tachycardia Type 2 diabetes mellitus She is euvolemic and regular on exam today but does have some worsening dyspnea on exertion. Unclear this related to deconditioning or a change in her cardiomyopathy. Will plan on repeating echocardiogram to ensure there has not been any major structural changes. She is currently tolerating her guideline directed medical therapy so will not plan on any getting any changes at this time but will plan on starting semaglutide 0.25 mg daily to aid in weight loss, cardiovascular risk reduction, and diabetes control. Her LDL is at goal for primary prevention and her blood pressures are well controlled. Thank you for the opportunity to participate in the care of this wonderful patient. We will plan onseeing them back in 6 months time. Please do not hesitate to contact us with any questions or concerns that may arise in the interim. Matt Remy MD on 09/09/2022 at 1:13 PM [place] [employer] (Cardiology) Director, Sports Cardiology [facility] in [place] documented in this encounter Miscellaneous Notes * Addendum Note - Radhames Herrera RMA - 09/09/2022 1:15 PM CDTAddended by: RADHAMES HERRERA on: 09/09/2022 01:41 PM Modules accepted: Orders documented in this encounter Plan of Treatment Scheduled Procedures Name Priority Associated Diagnoses Date/Ti me ESOPHAGOGASTRODUODENOSCOPY Nausea Colon cancer screening COLONOSCOPY Nausea Colon cancer screening documented as of this encounter Results * TRANSTHORACIC ECHO (TTE) COMPLETE W DOPPLER/CF WO CONTRAST (09/19/2022 1:59 PM CDT) LV EF 47 % CARDIOREPORT Anatomical Region Laterality Modality Ultrasound 09/19/2022 1:00 PM CDT Narrative 09/22/2022 11:42 AM CDT Patient name: Katy Sauceda Date of test: 09/19/2022 Type of test: TTE w/Doppler Hospital #: [id number] Date of : 1965 (F) Land Use Planner: Elder Abrams RDCS Referring Physician: MATT REMY MD Contrast Agent: Contrast Administered by: Supervised/Interpreted by: Kolton Coffey MD Diagnosis: Location: [facility] Reason for test: cardiomyopathy MV Structure: Normal, ?MV Motion: Normal, ?? Mitral Annulus: Normal AV Structure: tricuspid and is Normal, ?? AV Motion: Normal Aotic root: Normal, ?TM: Normal, ?? PV: Normal Valvular Vegetations: none seen, ?Mass/Thrombi: none seen RA: Normal Measurements: ?M-Mode ?Normal ? Aotic Root: ? <3.8 ? LA: ? <3.8 ? RV: ? <2.8 ? LV(ED): ? <5.7 ? LV(ES): ? Variable ?2D Linear Normal ? Aotic Root: 2.9 cm ?<3.6 ? Ao Indexed: 1.5 cm/M2 <2.0 ? LA: ? <3.8 ? RV: ? 2.8 cm ?<4.2 ? LV(ED): ? 4.2 cm ?<5.3 ? LV(ES): ? 3.0 cm ?<3.5 ?2D Vol. ?? Normal ?Indexed ?? Indexed Normal RA: ? 23.0 ml ? 12.0 ml/M2 ?9-33 ? LA: ? 43.0 ml ? 22.4 ml/M2 ?16-34 ? RV: ? <11.6 ? LV(ED): ? 123.0 ml ??46-106 ?64.0 ml/M2 ?<62 ? LV(ES): ? 65.0 ml ?? 14-42 ? 33.8 ml/M2 ?<25 ?3D Vol. ? Indexed Normal LV(ED): ? 64.5 mL/m2 ?? <62 ? LV(ES): ? 34.9 mL/m2 ?? <24 ? LV EF: 47 % ?? (Normal: >=54%) ?? LV Septum: 1.0 cm ?(Normal: <0.9 cm) Wall Motion Scoring (1=Normal 2=Hypo 3=Akinetic 4=Dyskin./Aneurysm 0=Not visualized) Parasternal [place]:MAS=2 BAS=2 MIL=2 KAYLEY=2 Parasternal Short [place]ell:MAS=2 MIS=2 TN=2 MIL=2 MAL=2 MA=2 Apical 4 Chambers:=2 MIS=2 BIS=2 BAL=2 MAL=2 AL=2 AC=2 Apical 2 Chambers:AI=2 TN=2 BI=2 BA=2 MA=2 AA=2 AC=2 LV Global Longitudinal Strain: -12.9% ??(Normal <-17%) RV Global Longitudinal Strain: LV Function: Mild Global reduction in LV Ejection Fraction (EF=41-53%) RV Function: Normal Septal Motion: paradoxic Pericardial Effusion: none seen Atrial Septum: Normal DOPPLER/COLOR FLOW DOPPLER RESULTS: Diastolic Function: Grade I, altered relax. w/N. LA pres. Tricuspid Valve: mild TV regurgitation Pulmonic Valve: normal PV AV Regurgitation: Mild AR AV Stenosis: no AV Area: ??cm2 AV Pressure Gradient (mmHg): Mean: 0, Peak:0 MV Regurgitation: Mild MR MV Stenosis: no MS MV Area: ??cm2 MV Pressure Gradient (mmHg): Mean: 0 MV ERO: ??cm Regurg. Vol.: ??ml/beat Regurg. Frac.: ??% PA Pressure: 24 mmHg DOPPLER/COLOR FOLOW DOPPLER COMMENTS: Mild AR, Mild MR, no , no MS, mild TV regurgitation, normal PV. Diastolic function: Grade I, altered relax. w/N. LA pres. AR QJG=209 ms SUMMARY: LA is normal. Normal RV cavity size and function. LV cavity size is mildly dilated. Concentric LV remodeling and mild LVD; EF=47%-abnormal septal motion. PASP=21+RAP. Normal Inferior vena cava. Normal aorta. Since 12/2020, EF has further declined from 55% to 47% Confirmed on ??09/22/2022 - 11:42:22 by Kolton Coffey MD By signing this report, the attending city routeman certifies that he or she has personally supervised and interpreted the echocardiogram and has reviewed and or edited and agrees with the written comments contained within the report. Procedure Kolton Trimble MD - 09/22/2022 Patient name: Katy Sauceda Date of test: 09/19/2022 Type of test: TTE w/Doppler [facility] #: 0 Date of : 1965 (F) Land Use Planner: Elder Abrams RDCS Referring Physician: MATT REMY MD Contrast Agent: Contrast Administered by: Supervised/Interpreted by: Kolton Coffey MD Diagnosis: Location: [facility] Reason for test: cardiomyopathy MV Structure: Normal, MV Motion: Normal, Mitral Annulus: Normal AV Structure: tricuspid and is Normal, AV Motion: Normal Aotic root: Normal, TM: Normal, PV: Normal Valvular Vegetations: none seen, Mass/Thrombi: none seen RA: Normal Measurements: M-Mode Normal Aotic Root: <3.8 LA: <3.8 RV: <2.8 LV(ED): <5.7 LV(ES): Variable 2D Linear Normal Aotic Root: 2.9 cm <3.6 Ao Indexed: 1.5 cm/M2 <2.0 LA: <3.8 RV: 2.8 cm <4.2 LV(ED): 4.2 cm <5.3 LV(ES): 3.0 cm <3.5 2D Vol. Normal Indexed Indexed Normal RA: 23.0 ml 12.0 ml/M2 9-33 LA: 43.0 ml 22.4 ml/M2 16-34 RV: <11.6 LV(ED): 123.0 ml 46-106 64.0 ml/M2 <62 LV(ES): 65.0 ml 14-42 33.8 ml/M2 <25 3D Vol. Indexed Normal LV(ED): 64.5 mL/m2 <62 LV(ES): 34.9 mL/m2 <24 LV EF: 47 % (Normal: >=54%) LV Septum: 1.0 cm (Normal: <0.9 cm) Wall Motion Scoring (1=Normal 2=Hypo 3=Akinetic 4=Dyskin./Aneurysm 0=Not visualized) Parasternal [place]:MAS=2 BAS=2 MIL=2 AKYLEY=2 Parasternal Short [place]:MAS=2 MIS=2 TN=2 MIL=2 MAL=2 MA=2 Apical 4 Chambers:=2 MIS=2 BIS=2 BAL=2 MAL=2 AL=2 AC=2 Apical 2 Chambers:AI=2 TN=2 BI=2 BA=2 MA=2 AA=2 AC=2 LV Global Longitudinal Strain: -12.9% (Normal <-17%) RV Global Longitudinal Strain: LV Function: Mild Global reduction in LV Ejection Fraction (EF=41-53%) RV Function: Normal Septal Motion: paradoxic Pericardial Effusion: none seen Atrial Septum: Normal DOPPLER/COLOR FLOW DOPPLER RESULTS: Diastolic Function: Grade I, altered relax. w/N. LA pres. Tricuspid Valve: mild TV regurgitation Pulmonic Valve: normal PV AV Regurgitation: Mild AR AV Stenosis: no AV Area: cm2 AV Pressure Gradient (mmHg): Mean: 0, Peak:0 MV Regurgitation: Mild MR MV Stenosis: no MS MV Area: cm2 MV Pressure Gradient (mmHg): Mean: 0 MV ERO: cm Regurg. Vol.: ml/beat Regurg. Frac.: % PA Pressure: 24 mmHg DOPPLER/COLOR FOLOW DOPPLER COMMENTS: Mild AR, Mild MR, no , no MS, mild TV regurgitation, normal PV. Diastolic function: Grade I, altered relax. w/N. LA pres. AR QSI=116 ms SUMMARY: LA is normal. Normal RV cavity size and function. LV cavity size is mildly dilated. Concentric LV remodeling and mild LVD; EF=47%-abnormal septal motion. PASP=21+RAP. Normal Inferior vena cava. Normal aorta. Since 12/2020, EF has further declined from 55% to 47% Confirmed on 09/22/2022 - 11:42:22 by Kolton Coffey MD By signing this report, the attending city routeman certifies that he or she has personally supervised and interpreted the echocardiogram and has reviewed and or edited and agrees with the written comments contained within the report. us Matt Remy MD CV ECHO PROCEDURES Final R esult documented in this encounter Visit Diagnoses Diagnosis NICM (nonischemic cardiomyopathy) (CMS/HCC) ([facility])- Primary Mixed hyperlipidemia Essential hypertension Unspecified essential hypertension Diabetes mellitus type II, non insulin dependent (CMS/HCC) (HCC) Type II or unspecified type diabetes mellitus without mention of complication, not stated as uncontrolled NICM (nonischemic cardiomyopathy) (CMS/HCC) ([facility]) documented in this encounter Discontinued Medications Medication Sig Discontinue Reason Start Date End Da te famotidine (PEPCID) 40 mg tablet daily 02/24/2022 09/09/2022 loratadine (CLARITIN) 10 mg tablet Take 10 mg by mouth daily 09/09/2022 semaglutide (OZEMPIC SUBQ) Inject under the skin once a week Reorder 09/09/2022 documented as of this encounter Historical Medications * This list may reflect changes made after this encounter. semaglutide (OZEMPIC SUBQ) Inject under the skin once a week 09/09/2022 added in this encounter Care Teams Search And Rescue Officer Relationship Specialty Start Date End Date Newton Mendiola MD [address] [address] PCP - General 06/09/16 Sly Cade MD [address] [address] Referring Physician Cardiology 12/07/18 documented as of this encounter
--- OUTSIDE RECORDS SUMMARY | 2024-03-18 04:58 | XMS_ITS | Encounter Summary ---
Author Organization [facility] [place] Address [address] [place] [address] Phone Care Team Providers Care High School Business Teacher Name Role Phone Newton Mendiola MD Primary Care Provider [phone] Sly Cade MD Unavailable [phone] Reason for Visit * Cardiology (Routine) - Closed Specialty Diagnoses / Procedures Referred By Contac t Referred To Contact Diagnoses Chronic systolic heart failure (CMS/HCC) (HCC) Procedures Transthoracic Echo (TTE) Complete W Doppler/CF Zarina Shirley NP Phone: tel: fax: [facility] (All Locations) Referral ID Status Reason Start Date Expiration Date Visits Re quested Visits Authorized [id number] Closed 03/04/2023 04/02/2024 1 1 Encounter Details Date Type Department Care Team (Latest Contact Info) Description 07/07/2023 3:00 PM CDT Ancillary Procedure [place] [id number] [facility] [address] [place] [address] Chronic systolic heart failure (CMS/HCC) (HCC) Social History Tobacco Use Types Packs/Day Years Used Date Smoking Tobacco: Former Cigarettes 0.5 10 1 990 - 2000 Smokeless Tobacco: Never Alcohol Use Standard Drinks/Week Comments No 0 (1 standard drink = 0.6 oz pur e alcohol) Social Connection and Isolation Panel [NHANES] A nswer Date Recorded Frequency of Communication with Friends and Fami ly Not on file 2021 Frequency of Social Gatherings with Friends and Family Not on file 2021 Attends [employer] Services Not on file 01/16 Active Member [...] on file Legal 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 documented in this encounter Plan of Treatment Scheduled Procedures Name Priority Associated Diagnoses Date/Ti me ESOPHAGOGASTRODUODENOSCOPY Nausea Colon cancer screening COLONOSCOPY Nausea Colon cancer screening documented as of this encounter Procedures Procedure Name Priority Date/Time Associated Diagnosis Comments TRANSTHORACIC ECHO (TTE) COMPLETE W DOPPLER/CF W CONTRAST Routine 07/07/2023 3:27 PM CDT Chronic systolic heart failure (CMS/HCC) (HCC) documented in this encounter Results * TRANSTHORACIC ECHO (TTE) COMPLETE W DOPPLER/CF W CONTRAST (07/07/2023 3:27 PM CDT) LV EF 47 % CARDIOREPORT Anatomical Region Laterality Modality Ultrasound 07/07/2023 3:00 PM CDT Narrative 07/07/2023 4:20 PM CDT Patient name: Katy Sauceda Date of test: 07/07/2023 Type of test: TTE w/Doppler [facility] #: 0 Date of : 1965 (F) Tactical/Mobile Watch Officer: SON Arteaga Referring Physician: ZARINA SHIRLEY MD Contrast Agent: 0.4 ml Optison Administered, (2.6 ml wasted). Contrast Administered by: Norris Swift RN Supervised/Interpreted by: Matt Remy MD Diagnosis: Location: [facility] Reason for test: Chronic systolic heart failure MV Structure: Normal, ?MV Motion: Normal, ?? [...] Variable ?2D Linear Normal ? Aotic Root: 2.6 cm ?<3.6 ? Ao Indexed: 1.4 cm/M2 <2.0 ? LA: ? <3.8 ? RV: ? 2.8 cm ?<4.2 ? LV(ED): ? 5.0 cm ?<5.3 ? LV(ES): ? 3.7 cm ?<3.5 ?2D Vol. ?? Normal ?Indexed ?? Indexed Normal RA: ? 18.0 ml ? 10.0 ml/M2 ?9-33 ? LA: ? 42.0 ml ? 23.3 ml/M2 ?16-34 ? RV: ? <11.6 ? LV(ED): ? 137.0 ml ??46-106 ?76.0 ml/M2 ?<62 ? LV(ES): ? 72.0 ml ?? 14-42 ? 39.9 ml/M2 ?<25 ?3D Vol. ? Indexed Normal LV(ED): ?<62 ? LV(ES): ?<24 ? LV EF: 47 % ?? (Normal: >=54%) ?? LV Septum: 1.1 cm ?(Normal: <0.9 cm) Wall Motion Scoring (1=Normal 2=Hypo 3=Akinetic 4=Dyskin./Aneurysm 0=Not visualized) Parasternal Long [place]:MAS=1 BAS=1 MIL=1 KAYLEY=1 Parasternal Short [place]:MAS=1 MIS=1 WV=1 MIL=1 MAL=1 MA=1 Apical 4 Chambers:=1 MIS=1 BIS=1 BAL=1 MAL=1 AL=1 AC=1 Apical 2 Chambers:AI=1 WV=1 BI=1 BA=1 MA=1 AA=1 AC=1 LV Global Longitudinal Strain: -14% ??(Normal <-17%) RV Global Longitudinal Strain: LV Function: Normal LV Ejection Fraction, ??(EF=54-74%) RV Function: Normal Septal Motion: paradoxic Pericardial Effusion: none seen Atrial Septum: Normal DOPPLER/COLOR FLOW DOPPLER RESULTS: Diastolic Function: Impaired Relaxation Tricuspid Valve: normal TV Pulmonic Valve: normal PV AV Regurgitation: Mild AR AV Stenosis: no AV Area: ??cm2 AV Pressure Gradient (mmHg): Mean: 0, Peak:0 MV Regurgitation: No MR seen MV Stenosis: no MS MV Area: ??cm2 MV Pressure Gradient (mmHg): Mean: 0 MV ERO: ??cm Regurg. Vol.: ??ml/beat Regurg. Frac.: ??% PA Pressure: 22+RA mmHg DOPPLER/COLOR FOLOW DOPPLER COMMENTS: Mild AR, No MR seen, no , no MS, normal TV, normal PV. Diastolic function: Impaired Relaxation CONTRAST: 0.4 ml Optison Administered, (2.6 ml wasted). SUMMARY: Mild LV dilation (LVEDVi 76 mL/m2), eccentric hypertrophy, and mildly reduced LV systolic function (LVEF 47%, LV GLS -14%) w/ pardoxical septal motion. ??Impaired relaxation (G1DD - normal LA pressure). Normal RV size and systolic function. Normal atria. No significant valvular abnormalitites. Est RVSP 22 mmHg + RAP (IVC not seen). No pericardial effusion. Normal aortic root and arch. Compared to TTE 09/2022, no significant changes Confirmed on ??07/07/2023 - 16:20:39 by Matt Remy MD By signing this report, the attending duct cleaner certifies that he or she has personally supervised and interpreted the echocardiogram and has reviewed and or edited and agrees with the written comments contained within the report. Procedure Note Matt Remy MD - 07/07/2023 Patient name: Katy Sauceda Date of test: 07/07/2023 Type of test: TTE w/Doppler [facility] #: 0 Date of : 1965 (F) Tactical/Mobile Watch Officer: SON Arteaga Referring Physician: ZARINA SHIRLEY MD Contrast Agent: 0.4 ml Optison Administered, (2.6 ml wasted). Contrast Administered by: Norris Swift RN Supervised/Interpreted by: Matt Remy MD Diagnosis: Location: [facility] Reason for test: Chronic systolic heart failure MV Structure: Normal, MV Motion: Normal, Mitral Annulus: Normal AV Structure: tricuspid and is Normal, AV Motion: Normal Aotic root: Normal, TM: Normal, PV: Normal Valvular Vegetations: none seen, Mass/Thrombi: none seen RA: Normal Measurements: M-Mode Normal Aotic Root: <3.8 LA: <3.8 RV: <2.8 LV(ED): <5.7 LV(ES): Variable 2D Linear Normal Aotic Root: 2.6 cm <3.6 Ao Indexed: 1.4 cm/M2 <2.0 LA: <3.8 RV: 2.8 cm <4.2 LV(ED): 5.0 cm <5.3 LV(ES): 3.7 cm <3.5 2D Vol. Normal Indexed Indexed Normal RA: 18.0 ml 10.0 ml/M2 9-33 LA: 42.0 ml 23.3 ml/M2 16-34 RV: <11.6 LV(ED): 137.0 ml 46-106 76.0 ml/M2 <62 LV(ES): 72.0 ml 14-42 39.9 ml/M2 <25 3D Vol. Indexed Normal LV(ED): <62 LV(ES): <24 LV EF: 47 % (Normal: >=54%) LV Septum: 1.1 cm (Normal: <0.9 cm) Wall Motion Scoring (1=Normal 2=Hypo 3=Akinetic 4=Dyskin./Aneurysm 0=Not visualized) Parasternal Long [place]:MAS=1 BAS=1 MIL=1 KAYLEY=1 Parasternal Short [place]:MAS=1 MIS=1 WV=1 MIL=1 MAL=1 MA=1 Apical 4 Chambers:=1 MIS=1 BIS=1 BAL=1 MAL=1 AL=1 AC=1 Apical 2 Chambers:AI=1 WV=1 BI=1 BA=1 MA=1 AA=1 AC=1 LV Global Longitudinal Strain: -14% (Normal <-17%) RV Global Longitudinal Strain: LV Function: Normal LV Ejection Fraction, (EF=54-74%) RV Function: Normal Septal Motion: paradoxic Pericardial Effusion: none seen Atrial Septum: Normal DOPPLER/COLOR FLOW DOPPLER RESULTS: Diastolic Function: Impaired Relaxation Tricuspid Valve: normal TV Pulmonic Valve: normal PV AV Regurgitation: Mild AR AV Stenosis: no AV Area: cm2 AV Pressure Gradient (mmHg): Mean: 0, Peak:0 MV Regurgitation: No MR seen MV Stenosis: no MS MV Area: cm2 MV Pressure Gradient (mmHg): Mean: 0 MV ERO: cm Regurg. Vol.: ml/beat Regurg. Frac.: % PA Pressure: 22+RA mmHg DOPPLER/COLOR FOLOW DOPPLER COMMENTS: Mild AR, No MR seen, no , no MS, normal TV, normal PV. Diastolic function: Impaired Relaxation CONTRAST: 0.4 ml Optison Administered, (2.6 ml wasted). SUMMARY: Mild LV dilation (LVEDVi 76 mL/m2), eccentric hypertrophy, and mildly reduced LV systolic function (LVEF 47%, LV GLS -14%) w/ pardoxical septal motion. Impaired relaxation (G1DD - normal LA pressure). Normal RV size and systolic function. Normal atria. No significant valvular abnormalitites. Est RVSP 22 mmHg + RAP (IVC not seen). No pericardial effusion. Normal aortic root and arch. Compared to TTE 09/2022, no significant changes Confirmed on 07/07/2023 - 16:20:39 by Matt Remy MD By signing this report, the attending duct cleaner certifies that he or she has personally supervised and interpreted the echocardiogram and has reviewed and or edited and agrees with the written comments contained within the report. Zarina Shirley NP CV ECHO PROCEDURES Final Re sult documented in this encounter Visit Diagnoses Diagnosis Chronic systolic heart failure (CMS/HCC) (HCC) Chronic systolic heart failure documented in this encounter Administered Medications Inactive Administered Medications - up to 3 most recent administrations Medication Order MAR Action Action Date Dose Rate Site perflutren protein-a (OPTISON) 3 mL in sodium chloride 0.9% 8 mL syringe 1-8 mL, intravenous, Once in imaging, contrast, Starting on Thu07/07/23 at 1447, For 1 dose, Intra-Procedure (CV) Contrast Given 07/07/2023 3:27 PM CDT 1 mL documented in this encounter Orders Medications Ordered That Allan ht Not Have Been Administered Count Last Ordered Date First Ordered Date perflutren protein-a (OPTISO N) 3 mL in sodium chloride 0.9% 8 mL syringe 1 07/07/2023 documented in this encounter Care Teams High School Business Teacher Relationship Specialty Start Date End Date Newton Mendiola MD [address] [place] [address] PCP - General 06/09/16 Sly Cade MD [address] [place] [address] Referring Physician Cardiology 12/07/18 documented as of this encounter
--- OUTSIDE RECORDS SUMMARY | 2024-03-18 04:58 | XMS_ITS | Encounter Summary ---
Author Organization [facility] Address [address] [place] [address] Care Team Providers Care General Dentist/Owner Name Role Phone Newton Mendiola MD Primary Care Provider [phone] Sly Cade MD Unavailable [phone] Reason for Referral * Procedure (Routine) - Pending Review Specialty Diagnoses / Procedures Referred By Contkira t Referred To Contact Diagnoses Skin avulsion Procedures Laceration Repair Alysa Argueta NP [address] [place] [address] Phone: tel: fax: [facility] Medical [facility] Referral ID Status Reason Start Date Expiration Date V isits Requested Visits Authorized [id number] Pending Review 04/25/2023 05/24/2024 1 1 SCHOOL VICE PRINCIPAL Reason for Visit * Reason Comments Laceration She cut her thumb on the lid of a can about 30 minutes ago, she has not done anything to clean it out. Encounter Details Date Type Department Care Team (Late st Contact Info) Description 04/25/2023 2:45 PM HIGH SCHOOL VICE PRINCIPAL Office Visit [facility] [place] [address] [place] [id number] Alysa Argueta NP [address] [place] [address] Skin avulsion (Primary Dx) Social History Tobacco Use Types [...] and Family Not on file 2021 Attends [employer] Services Not on file 01/16 Active Member [...] place to sleep or slept in a intermediate (including now)? No 2021 Comments No Sex and Gender Information Value Date Recorded Sex Assigned at Not on file Legal Sex Female 7:55 AM HIGH SCHOOL VICE PRINCIPAL Gender Identity Not on file Sexual Orientation Not on file documented as of this encounter Last Filed Vital Signs Vital Sign Reading Time Taken Comments Blood Pressure 108/62 04/25/2023 2:29 PM HIGH SCHOOL VICE PRINCIPAL Pulse 80 04/25/2023 2:29 PM HIGH SCHOOL VICE PRINCIPAL Temperature 36.2 ??C (97.2 ??F) 04/25/2023 2:29 PM CS T Respiratory Rate 18 04/25/2023 2:29 PM HIGH SCHOOL VICE PRINCIPAL Oxygen Saturation 98% 04/25/2023 2:29 PM HIGH SCHOOL VICE PRINCIPAL Inhaled Oxygen Concentration - - Weight 74.8 kg (165 lb) 04/25/2023 2:29 PM HIGH SCHOOL VICE PRINCIPAL Height 162.6 cm (5' 4 ) 04/25/2023 2:29 PM HIGH SCHOOL VICE PRINCIPAL Body Mass Index 28.32 04/25/2023 2:29 PM HIGH SCHOOL VICE PRINCIPAL documented in this encounter Patient Instructions * Patient Instructions* Alysa Argueta NP - 04/25/2023 2:45 PM HIGH SCHOOL VICE PRINCIPAL Avoid submerging R thumb under water. Wear gloves to shower and wash hair. Keep area clean and dry.If steri strips fall off, clean wound twice daily and apply antibiotic ointment. Observe for signs of infection including pain, redness, inflammation, drainage, and streaking from site. If these symptoms present, return to clinic or go to your PCP to be evaluated for infection. SCHOOL VICE PRINCIPAL documented in this encounter Progress Notes * Alysa Argeuta NP - 04/25/2023 2:45 PM CSTAssociated Order(s): Laceration Repair Post-Procedure Diagnose(s): Skin avulsion Images from the original note were not included. Subjective/Objective Patient ID: Katy Sauceda is a 58 y.o. female. Chief Complaint Laceration (She cut her thumb on the lid of a can about 30 minutes ago, she has not done anything to clean it out.) Presents to [facility] with complaint of laceration to right thumb. She reports approximately 30 minutes prior to arrival, she cut thumb on the lid a can. Date of last tetanus vaccine unknown. Review of Systems Constitutional: Negative. Respiratory: Negative. Cardiovascular: Negative. Skin: Positive for wound (Right thumb). Physical Exam Eyes: Conjunctiva/sclera: Conjunctivae normal. Cardiovascular: Rate and Rhythm: Normal rate. Pulmonary: Effort: Pulmonary effort is normal. Skin: General: Skin is warm and dry. Comments: Superficial avulsion, curved in the shape of U, loose skin flap noted. Neurological: Mental Status: She is alert. Psychiatric: Mood and Affect: Mood normal. Vitals: 04/25/23 1429 BP: 108/62 Pulse: 80 Resp: 18 Temp: 36.2 ??C (97.2 ??F) TempSrc: Tympanic SpO2: 98% Weight: 74.8 kg (165 lb) Height: 162.6 cm (5' 4 ) Laceration Repair Date/Time: 04/25/2023 3:59 PM Performed by: Alysa Argueta NP Authorized by: Alysa Argueta NP Consent: Consent obtained: Verbal Consent given by: Patient Risks discussed: Pain and infection Hallie protocol: Procedure explained and questions answered to patient or proxy's satisfaction: yes Patient identity confirmed: Verbally with patient Anesthesia: Anesthesia method: None Laceration details: Location: Finger Finger location: R thumb Length (cm): 1.5 Depth (mm): 0.5 Exploration: Limited defect created (wound extended): no Hemostasis achieved with: Direct pressure Imaging outcome: foreign body not noted Wound exploration: entire depth of wound visualized Contaminated: no Treatment: Area cleansed with: Povidone-iodine Amount of cleaning: Standard Visualized foreign bodies/material removed: no Skin repair: Repair method: Steri-Strips Number of Steri-Strips: 8 Approximation: Approximation: Close Repair type: Repair type: Simple Post-procedure details: Dressing: Sterile dressing Procedure completion: Tolerated well, no immediate complications No results found for this or any previous visit (from the past 4 hour(s)). Assessment/Plan Steri-Strips applied. Patient advised on infection prevention and follow-up care. Diagnoses and all orders for this visit: Skin avulsion (Primary) - Tdap vaccine greater than or equal to 7yo IM - Laceration Repair Patient Education: Avoid submerging R thumb under water. Wear gloves to shower and wash hair. Keep area clean and dry.If steri strips fall off, clean wound twice daily and apply antibiotic ointment. Observe for signs of infection including pain, redness, inflammation, drainage, and streaking from site. If these symptoms present, return to clinic or go to your PCP to be evaluated for infection. Disposition Treatment plan including expectations, follow up, and return precautions discussed with patient/parent, verbalizes understanding. Medication dosage, use, and potential adverse reactions discussed with patient/parent. Advised to follow up with PCP if symptoms do not resolve as expected or sooner if condition worsens. Signs/symptoms warranting ER evaluation reviewed. Patient and/or guardian was given an opportunity to ask questions, questions answered. Alysa Argueta NP SCHOOL VICE PRINCIPAL documented in this encounter Plan of Treatment Scheduled Procedures Name Priority Associated Diagnoses Date/Ti me ESOPHAGOGASTRODUODENOSCOPY Nausea Colon cancer screening COLONOSCOPY Nausea Colon cancer screening documented as of this encounter Procedures Procedure Name Priority Date/Time Associated Diagnosis Comments LACERATION REPAIR Routine 04/25/2023 3:5 9 PM HIGH SCHOOL VICE PRINCIPAL Skin avulsion documented in this encounter Results * Laceration Repair (04/25/2023 3:59 PM HIGH SCHOOL VICE PRINCIPAL) Narrative Alysa Argueta NP - 04/25/2023 3:59 PM HIGH SCHOOL VICE PRINCIPAL Alysa Argueat NP ? 04/25/2023 ??4:08 PM Laceration Repair Date/Time: 04/25/2023 3:59 PM Performed by: Alysa Argueta NP Authorized by: Alysa Argueta NP ?? Consent: ??Consent obtained: ??Verbal ??Consent given by: ??Patient ??Risks discussed: ??Pain and infection Hallie protocol: ??Procedure explained and questions answered to patient or proxy's satisfaction: yes ?Patient identity confirmed: ??Verbally with patient Anesthesia: ??Anesthesia method: ??None Laceration details: ??Location: ??Finger ??Finger location: ??R thumb ??Length (cm): ??1.5 ??Depth (mm): ??0.5 Exploration: ??Limited defect created (wound extended): no ?Hemostasis achieved with: ??Direct pressure ??Imaging outcome: foreign body not noted ?Wound exploration: entire depth of wound visualized ?Contaminated: no ?? Treatment: ??Area cleansed with: ??Povidone-iodine ??Amount of cleaning: ??Standard ??Visualized foreign bodies/material removed: no ?? Skin repair: ??Repair method: ??Steri-Strips ??Number of Steri-Strips: ??8 Approximation: ??Approximation: ??Close Repair type: ??Repair type: ??Simple Post-procedure details: ??Dressing: ??Sterile dressing ??Procedure completion: ??Tolerated well, no immediate complications Alysa Argueta TABLE WORKER PACKAGER IN CLINIC/BEDSIDE ORDERA BLES Final Result documented in this encounter Visit Diagnoses Diagnosis Skin avulsion- Primary documented in this encounter Orders Immunization/Injection Count Last Ordered Date First Ordered Date TDAP VACCINE GREATER THAN OR EQUAL TO 7YO IM 1 04/25/2023 documented in this encounter Care Teams General Dentist/Owner Relationship Specialty Start Date End Date Newton Mendiola MD [address] [address] PCP - General 06/09/16 Sly Cade MD [address] [facility] [address] [place] [address] Referring Physician Cardiology 12/07/18 documented as of this encounter
--- OUTSIDE RECORDS SUMMARY | 2024-03-18 04:58 | XMS_ITS | Encounter Summary ---
Author Organization [facility] Address [address] [place] [address] Phone Care Team Providers Care Wireless Operator Name Role Phone Newton Mendiola MD Primary Care Provider [phone] Sly Cade MD Unavailable [phone] Reason for Visit * Cardiology (Routine) - Closed Specialty Diagnoses / Procedures Referred By Contac t Referred To Contact Diagnoses NICM (nonischemic cardiomyopathy) (CMS/HCC) (HCC) Procedures Transthoracic Echo (TTE) Complete W Doppler/CF Billie Remy MD Phone: tel: fax: [facility] Referral ID Status Reason Start Date Expiration Date Visits Re quested Visits Authorized [id number] Closed 09/09/2022 10/09/2023 1 1 Encounter Details Date Type Department Care Team (Latest Contact Info) Description 09/19/2022 1:00 PM CDT Ancillary Procedure [facility] [address] [place] [address] NICM (nonischemic cardiomyopathy) (CMS/HCC) ([facility]) Social History Tobacco Use Types Packs/Day Years [...] and Family Not on file 2021 Attends Jainism Services Not on file 01/16 Active Member [...] place to sleep or slept in a residential (including now)? 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 Gender Identity Not on file Sexual Orientation Not on file documented as of this encounter Plan of Treatment Scheduled Procedures Name Priority Associated Diagnoses Date/Ti me ESOPHAGOGASTRODUODENOSCOPY Nausea Colon cancer screening COLONOSCOPY Nausea Colon cancer screening documented as of this encounter Procedures Procedure Name Priority Date/Time Associated Diagnosis Comments TRANSTHORACIC ECHO (TTE) COMPLETE W DOPPLER/CF WO CONTRAST Routine 09/19/2022 1:59 PM CDT NICM (nonischemic cardiomyopathy) (CMS/HCC) (HCC) documented in this encounter Results * TRANSTHORACIC ECHO (TTE) COMPLETE W DOPPLER/CF WO CONTRAST (09/19/2022 1:59 PM CDT) LV EF 47 % CARDIOREPORT Anatomical Region Laterality Modality Ultrasound 09/19/2022 1:00 PM CDT Narrative 09/22/2022 11:42 AM CDT Patient name: Katy Sauceda Date of test: 09/19/2022 Type of test: TTE w/Doppler [facility] #: 0 Date of : 1965 (F) Director Wholesale: Elder Abrams RDCS Referring Physician: BILLIE REMY MD Contrast Agent: Contrast Administered by: Supervised/Interpreted by: Kolton Coffey MD Diagnosis: Location: [facility] Reason for test: cardiomyopathy MV Structure: [...] 2=Hypo 3=Akinetic 4=Dyskin./Aneurysm 0=Not visualized) Parasternal [place]:MAS=2 BAS=2 MIL=2 KAYLEY=2 Parasternal [place]:MAS=2 MIS=2 PA=2 MIL=2 MAL=2 MA=2 Apical 4 Chambers:=2 MIS=2 BIS=2 BAL=2 MAL=2 AL=2 AC=2 Apical 2 Chambers:AI=2 PA=2 BI=2 BA=2 MA=2 AA=2 AC=2 LV Global [...] I, altered relax. w/N. LA pres. AR EPN=238 ms SUMMARY: LA is normal. Normal RV cavity size and function. LV cavity size is mildly dilated. Concentric LV remodeling and mild LVD; EF=47%-abnormal septal motion. PASP=21+RAP. Normal Inferior vena cava. Normal aorta. Since 12/2020, EF has further declined from 55% to 47% Confirmed on ??09/22/2022 - 11:42:22 by Kolton Coffey MD By signing this report, the attending iphone developer certifies that he or she has personally supervised and interpreted the echocardiogram and has reviewed and or edited and agrees with the written comments contained within the report. Procedure Note Kolton Coffey MD - 09/22/2022 Patient name: Katy Sauceda Date of test: 09/19/2022 Type of test: TTE w/Doppler [facility] #: 0 Date of : 1965 (F) Director Wholesale: Elder Abrams RDCS Referring Physician: BILLIE REMY MD Contrast Agent: Contrast Administered by: Supervised/Interpreted by: Kolton Coffey MD Diagnosis: Location: [facility] Reason for test: cardiomyopathy MV Structure: [...] 2=Hypo 3=Akinetic 4=Dyskin./Aneurysm 0=Not visualized) Parasternal [place]:MAS=2 BAS=2 MIL=2 KAYLEY=2 Parasternal [place]:MAS=2 MIS=2 PA=2 MIL=2 MAL=2 MA=2 Apical 4 Chambers:=2 MIS=2 BIS=2 BAL=2 MAL=2 AL=2 AC=2 Apical 2 Chambers:AI=2 PA=2 BI=2 BA=2 MA=2 AA=2 AC=2 LV Global [...] I, altered relax. w/N. LA pres. AR LRA=443 ms SUMMARY: LA is normal. Normal RV cavity size and function. LV cavity size is mildly dilated. Concentric LV remodeling and mild LVD; EF=47%-abnormal septal motion. PASP=21+RAP. Normal Inferior vena cava. Normal aorta. Since 12/2020, EF has further declined from 55% to 47% Confirmed on 09/22/2022 - 11:42:22 by Kolton Coffey MD By signing this report, the attending iphone developer certifies that he or she has personally supervised and interpreted the echocardiogram and has reviewed and or edited and agrees with the written comments contained within the report. Result [facility] Billie Remy MD CV ECHO PROCEDURES Final R esult documented in this encounter Visit Diagnoses Diagnosis NICM (nonischemic cardiomyopathy) (CMS/HCC) (HCC) documented in this encounter Orders Medications Ordered That Allan ht Not Have Been Administered Count Last Ordered Date First Ordered Date perflutren protein-a (OPTISO N) 3 mL in sodium chloride 0.9% 8 mL syringe 1 09/19/2022 documented in this encounter Care Teams Wireless Operator Relationship Specialty Start Date End Date Newton Mendiola MD [address] [place] [address] PCP - General 06/09/16 Sly Cade MD [address] [place], [place] [id number] Referring Physician Cardiology 12/07/18 documented as of this encounter
--- OUTSIDE RECORDS SUMMARY | 2024-03-18 04:58 | XMS_ITS | Encounter Summary ---
Author Organization [facility] Healthcare Address [address] [place] [address] Care Team Providers Care Linoleum Layer Apprentice Name Role Phone Newton Mendiola MD Primary Care Provider [phone] Sly Cade MD Unavailable [phone] Reason for Visit * Reason Comments Nasal Congestion Pt has had cough and drainage for over a month.She is having facial pain and swelling and a headache.Pt has taken Coricidin HBP occasionally. She states due to hypertension she doesn't take much otc meds. Encounter Details Date Type Department Care Team (Late st Contact Info) Description 12/03/2023 2:45 PM CDT Office Visit [facility] [place] [address] [place] [address] Faith Burroughs, BRIT [address] [place] [address] Bacterial sinusitis (Primary Dx) Social History Tobacco [...] and Family Not on file 2021 Attends Church Services Not on file 01/16 Active Member [...] place to sleep or slept in a [place] health care facility (including now)? No 2021 Comments No Sex and Gender Information Value Date Recorded Sex Assigned at Not on file Legal Sex Female 7:55 AM MANAGEMENT DEVELOPMENT SPECIALIST Gender Identity Not on file Sexual Orientation Not on file documented as of this encounter Last Filed Vital Signs Vital Sign Reading Time Taken Comments Blood Pressure 144/80 12/03/2023 2:46 PM CDT Pulse 78 12/03/2023 2:46 PM CDT Temperature 36.7 ??C (98.1 ??F) 12/03/2023 2:46 PM CD T Respiratory Rate 18 12/03/2023 2:46 PM CDT Oxygen Saturation 97% 12/03/2023 2:46 PM CDT Inhaled Oxygen Concentration - - Weight 80.7 kg (178 lb) 12/03/2023 2:46 PM CDT Height 162.6 cm (5' 4 ) 12/03/2023 2:46 PM CDT Body Mass Index 30.55 12/03/2023 2:46 PM CDT documented in this encounter Patient Instructions * Patient Instructions* Faith Burroughs NP - 12/03/2023 2:45 PM CDT Research has proven that unless you are running a fever or symptoms start to improve then get worseagain, sinus infections are typically viral until days 9-10. Finish the entire antibiotic prescription. Take this with food. Eat yogurt or take probiotic dailywhile on antibiotics. Symptomatic treatments include: - Over [...] same utensils or glass, and use hand food processing scientist before touching people or common surfaces. - [...] mouth 2 (two) times a day for 7 days 14 capsule 12/03/2023 4 documented in this encounter Progress Notes * Faith Burroughs NP - 12/03/2023 2:45 PM CDT Images from the original note were not included. Subjective/Objective Patient ID: Katy Sauceda is a 58 y.o. female. Chief Complaint Nasal Congestion (Pt has had cough and drainage for over a month./She is having facial pain and swelling and a headache./Pt has taken Coricidin HBP occasionally. She states due to hypertension she doesn't take much otc meds.) Patient presents to convenient care for sinus congestion and nasal drainage times 4-5 weeks. She states that her symptoms have been worsening she now has bilateral ear pressure and sinus pressure. She has taken OTC Zyrtec and Coricidin HBP for her symptoms. She denies any fevers, chest pain, or shortness of breath. Review of Systems All systems reviewed and are negative or non contributory for this patient's presentation today other than as stated in the HPI. Physical Exam Vitals reviewed. Constitutional: General: She is not in acute distress. Appearance: Normal appearance. She is well-developed. She is not ill-appearing. HENT: Head: Normocephalic. Right Ear: Tympanic membrane, ear canal and external ear normal. Left Ear: Tympanic membrane, ear canal and external ear normal. Nose: No congestion or rhinorrhea. Right Sinus: Maxillary sinus tenderness present. No frontal sinus tenderness. Left Sinus: Maxillary sinus tenderness present. No frontal sinus tenderness. Mouth/Throat: Lips: Blanca. Mouth: Mucous membranes are moist. Pharynx: Oropharynx [...] Thought content normal. Judgment: Judgment normal. Vitals: 12/03/23 1446 BP: 144/80 Pulse: 78 Resp: 18 Temp: 36.7 ??C (98.1 ??F) TempSrc: Temporal SpO2: 97% Weight: 80.7 kg (178 lb) Height: 162.6 cm (5' 4 ) Assessment/Plan Diagnoses and all orders for this visit: Bacterial sinusitis (Primary) - doxycycline monohydrate (MONODOX) 100 mg capsule; Take 1 capsule (100 mg total) by mouth 2 (two) times a day for 7 days --doxycycline as prescribed --reviewed OTC medications to help with symptoms --return to clinic or follow up with PCP if symptoms persist or worsen No results found for this or any [...] Unspecified sinusitis (chronic) documented in this encounter Care Teams Linoleum Layer Apprentice Relationship Specialty Start Date End Date Newton Mendiola MD [address] [address] PCP - General 06/09/16 Sly Cade MD [address] [address] Referring Physician Cardiology 12/07/18 documented as of this encounter
--- OUTSIDE RECORDS SUMMARY | 2024-03-18 04:58 | XMS_ITS | Encounter Summary ---
Author Organization [facility] Healthcare Address [address] [place] [address] Care Team Providers Care Bulk Picker Name Role Phone Newton Mendiola MD Primary Care Provider [phone] Sly Cade MD Unavailable [phone] Reason for Visit * Reason Comments Nasal Congestion Cold Symptoms X 3 weeks, earache, glands feels swollen, sore throat, facial pain Encounter Details Date Type Department Care Team (Late st Contact Info) Description 03/02/2023 4:15 PM DECORATING CONSULTANT Office Visit [facility] at [address] [address] Emily Olivarez NP [address] [place] [address] Acute maxillary sinusitis, recurrence not specified (Primary Dx) Social History Tobacco Use Types [...] and Family Not on file 2021 Attends Mandaeism Services Not on file 01/16 Active Member [...] place to sleep or slept in a custodial (including now)? No 2021 Comments No Sex and Gender Information Value Date Recorded Sex Assigned at Not on file Legal Sex Female 7:55 AM DECORATING CONSULTANT Gender Identity Not on file Sexual Orientation Not on file documented as of this encounter Last Filed Vital Signs Vital Sign Reading Time Taken Comments Blood Pressure 100/65 03/02/2023 4:10 PM DECORATING CONSULTANT Pulse 81 03/02/2023 4:10 PM DECORATING CONSULTANT Temperature 36.8 ??C (98.3 ??F) 03/02/2023 4:10 PM CS T Respiratory Rate 18 03/02/2023 4:10 PM DECORATING CONSULTANT Oxygen Saturation 100% 03/02/2023 4:10 PM DECORATING CONSULTANT Inhaled Oxygen Concentration - - Weight 76.2 kg (168 lb) 03/02/2023 4:10 PM DECORATING CONSULTANT Height 162.6 cm (5' 4.02 ) 03/02/2023 4:10 PM CS T Body Mass Index 28.82 03/02/2023 4:10 PM DECORATING CONSULTANT documented in this encounter Patient Instructions * Patient Instructions* Emily Olivarez NP - 03/02/2023 4:15 PM DECORATING CONSULTANT If you have no improvement or worsening of your symptoms, please follow up with your Primary Care Provider, Convenient Care and or Emergency Room. I strive to provide you with EXCELLENT service. You may receive a survey after your visit today. If you cannot rate your experience as EXCELLENT, please let us know how we can improve and better meet your needs. Thank you for choosing [facility]! It was my pleasure to see you today, I hope you feel better soon! Emily Olivarez JANITORIAL TECH RATING CONSULTANT * Attachments The following attachments cannot be sent through Care Everywhere. * Sinusitis (AfterCare(R) Instructions(ER/ED)) (Portuguese) documented in this encounter Ordered Prescriptions Prescription Sig Dispense Quantity Refills Last Filled Start Date End Date azithromycin (ZITHROMAX) 250 mg tabletIndications: Acute maxillary sinusitis, recurrence not specified Take 2 tablets the first day, then 1 tablet daily for 4 days. 6 tablet 03/02/2023 4 documented in this encounter Progress Notes * Emily Olivarez NP - 03/02/2023 4:15 PM CST Images from the original note were not included. Subjective/Objective Patient ID: Katy Sauceda is a 58 y.o. female. Chief Complaint Nasal Congestion and Cold Symptoms (X 3 weeks, earache, glands feels swollen, sore throat, facial pain ) 58 year old female patient presents today with complaints of nasal congestion, earache, sore throat, facial pain x 3 weeks. Patient reports continued symptoms. Review of Systems All other systems reviewed and are negative. Physical Exam Constitutional: Appearance: Normal appearance. She is normal weight. She is not ill-appearing. HENT: Head: Normocephalic. Right Ear: Ear canal and external ear normal. Left Ear: Ear canal and external ear normal. Nose: Right Turbinates: Swollen. Left Turbinates: Swollen. Right Sinus: Maxillary sinus tenderness and frontal sinus tenderness present. Left Sinus: Maxillary sinus tenderness and frontal sinus tenderness present. Mouth/Throat: Mouth: Mucous membranes are moist. Pharynx: Oropharynx is clear. Eyes: Pupils: Pupils are equal, round, and reactive to light. Cardiovascular: Rate and Rhythm: Normal rate and regular rhythm. Pulses: Normal pulses. Heart sounds: Normal heart sounds. Pulmonary: Effort: Pulmonary effort is normal. Breath sounds: Normal breath sounds. Musculoskeletal: General: Normal range of motion. Cervical back: Normal range of motion. Skin: General: Skin is warm and dry. Capillary Refill: Capillary refill takes less than 2 seconds. Neurological: General: No focal deficit present. Mental Status: She is alert and oriented to person, place, and time. Mental status is at baseline. Psychiatric: Mood and Affect: Mood normal. Behavior: Behavior normal. Thought Content: Thought content normal. Judgment: Judgment normal. Vitals: 03/02/23 1610 BP: 100/65 Pulse: 81 Resp: 18 Temp: 36.8 ??C (98.3 ??F) TempSrc: Oral SpO2: 100% Weight: 76.2 kg (168 lb) Height: 162.6 cm (5' 4.02 ) No results found. Past Medical History: Diagnosis Date Bipolar disorder (HCC) CHF (congestive heart failure) (CMS/HCC) (HCC) COVID-19 virus infection 01/15/2021 Depression GERD (gastroesophageal reflux disease) Hodgkin lymphoma ([facility]) 09/09/2016 Hypertension Irritable bowel syndrome Kidney stone Thyroid nodule Current Outpatient Medications: aspirin 81 mg tablet, Take 1 tablet (81 mg total) by mouth daily, Disp: , Rfl: atorvastatin (LIPITOR) 40 mg tablet, TAKE 1 TABLET BY MOUTH EVERY DAY AT NIGHT, Disp: 90 tablet, Rfl: 1 buPROPion XL (WELLBUTRIN XL) 300 mg 24 hr tablet, TAKE 1 TABLET (300 MG TOTAL) BY MOUTH EVERY MORNING., Disp: 90 tablet, Rfl: 0 cetirizine (ZyrTEC) 10 mg tablet, Take 1 tablet (10 mg total) by mouth daily, Disp: , Rfl: cyanocobalamin, vitamin B-12, (VITAMIN B-12 ORAL), Take by mouth daily, Disp: , Rfl: dapagliflozin propanediol (Farxiga) 10 mg tablet, TAKE 1 TABLET BY MOUTH EVERY DAY, Disp: 90 tablet, Rfl: [address] (DEPAKOTE) 125 mg EC tablet, TAKE 1 TABLET BY MOUTH TWICE A DAY, Disp: 60 tablet, Rfl: 1 ergocalciferol (VITAMIN D) 50,000 unit capsule, TAKE 1 CAPSULE (50,000 UNITS TOTAL) BY MOUTH ONCE AWEEK FRIDAYS, Disp: 12 capsule, Rfl: 1 isosorbide mononitrate ER (IMDUR) 30 mg 24 hr tablet, Take 1 tablet (30 mg total) by mouth daily, Disp: , Rfl: losartan (COZAAR) 50 mg tablet, Take 1 tablet (50 mg total) by mouth daily, Disp: 90 tablet, Rfl: 3 metoprolol XL (TOPROL-XL) 100 mg 24 hr tablet, TAKE 1 TABLET BY MOUTH EVERY DAY, Disp: 90 tablet, Rfl: 3 ondansetron (ZOFRAN) 4 mg tablet, TAKE 1 TABLET BY MOUTH EVERY 8 HOURS NEEDED FOR NAUSEA AND VOMITING, Disp: 20 tablet, Rfl: [address] (PROTONIX) 40 mg EC tablet, TAKE 1 TABLET BY MOUTH EVERY DAY, Disp: 90 tablet, Rfl:4 semaglutide (OZEMPIC) 1 mg/dose (4 mg/3 mL) pen injector injection, Inject 1 mg under the skin every 7 days, Disp: 3 mL, Rfl: 1 spironolactone (ALDACTONE) 25 mg tablet, TAKE 1 TABLET BY MOUTH EVERY DAY, Disp: 90 tablet, Rfl: 3 valACYclovir (VALTREX) 1 gram tablet, TAKE 2 TABLETS BY MOUTH EVERY 12 HOURS FOR 1 DAY, Disp: 12 tablet, Rfl: 1 azithromycin (ZITHROMAX) 250 mg tablet, Take 2 tablets the first day, then 1 tablet daily for 4 days., Disp: 6 tablet, Rfl: 0 Current Facility-Administered Medications: perflutren protein-a (OPTISON) 3 mL in sodium chloride 0.9% 8 mL syringe, 1-8 mL, intravenous, Oncein imaging, Matt Remy MD Allergies Allergen Reactions Codeine Other (See comments) and Vomiting Reaction: RASH;, Entresto [Sacubitril-Valsartan] Nausea & Vomiting and Fatigue Hydrocodone Vomiting Penicillin Other (See comments) Reaction: UNKNOWN, Social History Tobacco Use Smoking status: Former Packs/day: 0.50 Years: 10.00 Additional pack years: 0.00 Total pack years: 5.00 Types: Cigarettes Quit date: 1999 Years since quittin.9 Smokeless tobacco: Never Substance and Sexual Activity Drug use: Yes Types: Marijuana Sexual activity: Defer Alcohol Use: Not At Risk (10/03/2021) AUDIT-C Frequency of Alcohol Consumption: Never Average Number of Drinks: Patient does not drink Frequency of Binge Drinking: Never Past Surgical History: Procedure Laterality Date CHOLECYSTECTOMY COLONOSCOPY CYST REMOVAL hodgkins biopsy OTHER SURGICAL HISTORY vocal cord nodule removal PORT PLACEMENT CHEST >5 YEARS 1992 ROTATOR CUFF REPAIR 2009 THYROID SURGERY 2005 Procedures Assessment/Plan No results found for this or any previous visit (from the past 4 hour(s)). Diagnoses and all orders for this visit: Acute maxillary sinusitis, recurrence not specified (Primary) - azithromycin (ZITHROMAX) 250 mg tablet; Take 2 tablets the first day, then 1 tablet daily for 4 days. Due to length of symptoms, likely bacterial in nature. Will give patient Azithromycin for sinusitisdue to penicillin allergy. Disposition Treatment plan including expectations, follow up, and return precautions discussed with patient/parent, verbalizes understanding. Medication dosage, use, and potential adverse reactions discussed with patient/parent. Advised to follow up with PCP if symptoms do not resolve as expected or sooner if condition worsens. Signs/symptoms warranting ER evaluation reviewed. Patient and/or guardian was given an opportunity to ask questions, questions answered. Emily Olivarez NP RATING CONSULTANT documented in this encounter Plan of Treatment Scheduled Procedures Name Priority Associated Diagnoses Date/Ti me ESOPHAGOGASTRODUODENOSCOPY Nausea Colon cancer screening COLONOSCOPY Nausea Colon cancer screening documented as of this encounter Visit Diagnoses Diagnosis Acute maxillary sinusitis, recurrence not specified- Primary documented in this encounter Care Teams Bulk Picker Relationship Specialty Start Date End Date Newton Mendiola MD [address] [address] PCP - General 06/09/16 Sly Cade MD [address] [place] [address] Referring Physician Cardiology 12/07/18 documented as of this encounter
--- OUTSIDE RECORDS SUMMARY | 2024-03-18 04:58 | XMS_ITS | Encounter Summary ---
Author Organization [facility] Healthcare Address [address] [place] [address] Care Team Providers Care Surveying Teacher Name Role Phone Newton Mendiola MD Primary Care Provider [phone] Sly Cade MD Unavailable [phone] Encounter Details Date Type Department Care Team (Latest Contact Info) Description 12/09/2023 3:04 PM CDT - 12/09/2023 11:59 PM CDT Hospital Encounter [facility] [address] [place] [id number] Newton Mendiola MD [address] [facility] [address] [place], [place] [id number] Night sweats; Neck pain Discharge Disposition: Discharge to home or self care Social History Tobacco Use Types Packs/Day Years [...] and Family Not on file 2021 Attends Spiritism Services Not on file 01/16 Active Member [...] on file Legal Sex Female 7:55 AM MEDICAL RECORD TRANSCRIBER Gender Identity Not on file Sexual Orientation Not on file documented as of this encounter Medications at Time of Discharge aspirin 81 mg tablet Take 1 tablet (81 mg total) by mouth daily atorvastatin (LIPITOR) 40 mg tablet Take 1 tablet (40 mg total) by mouth nightly 90 tablet 1 09/01/2023 buPROPion XL (WELLBUTRIN XL) 300 mg 24 hr tablet TAKE 1 TABLET (300 MG TOTAL) BY MOUTH EVERY MORNING. 90 tablet 12/01/2023 cetirizine (ZyrTEC) 10 mg tablet Take 1 tablet (10 mg total) by mouth daily cyanocobalamin, vitamin B-12, (VITAMIN B-12 ORAL) Take by mouth daily divalproex DR (DEPAKOTE) 125 mg EC tablet Take 1 tablet (125 mg total) by mouth 2 (two) times a day 180 tablet 1 09/21/2023 ergocalciferol (VITAMIN D) 50,000 unit capsule TAKE 1 CAPSULE (50,000 UNITS TOTAL) BY MOUTH ONCE A WEEK FRIDAYS 12 capsule 1 09/15/2022 Farxiga 10 mg tablet TAKE 1 TABLET BY MOUTH EVERY DAY 90 tablet 2 11/23/2023 metoprolol XL (TOPROL-XL) 100 mg 24 hr tablet TAKE 1 TABLET BY MOUTH EVERY DAY 90 tablet 3 08/26/2023 ondansetron (ZOFRAN) 4 mg tablet Take 1 tablet (4 mg total) by mouth every 8 (eight) hours as needed for nausea or vomiting 20 tablet 1 09/01/[address] (PROTONIX) 40 mg EC tablet TAKE 1 TABLET BY MOUTH EVERY DAY 90 tablet 4 01/12/2023 spironolactone (ALDACTONE) 25 mg tablet TAKE 1 TABLET BY MOUTH EVERY DAY 90 tablet 3 04/20/2023 doxycycline monohydrate (MONODOX) 100 mg capsuleIndication s:Bacterial sinusitis Take 1 capsule (100 mg total) by mouth 2 (two) times a day for 7 days 14 capsule 12/03/2023 4 valACYclovir (VALTREX) 1 gram tablet TAKE 2 TABLETS BY MOUTH EVERY 12 HOURS FOR 1 DAY 12 tablet 1 09/01/2023 4 documented as of this encounter Discharge Disposition Disposition Code Departure Means Destination Discharge to home or self care documented in this encounter Plan of Treatment Scheduled Procedures Name Priority Associated Diagnoses Date/Ti me ESOPHAGOGASTRODUODENOSCOPY Nausea Colon cancer screening COLONOSCOPY Nausea Colon cancer screening documented as of this encounter Procedures Procedure Name Priority Date/Time Associated Diagnosis Comments XR SPINE CERVICAL COMPLETE 4 OR 5 VW Schedule Routine, Read Routine (OP Routine) 12/09/2023 3:15 PM CDT Night sweats Neck pain XR CHEST PA LATERAL 2 VIEWS Schedule Routine, Read Routine (OP Routine) 12/09/2023 3:15 PM CDT Night sweats Neck pain documented in this encounter Results * XR Chest PA Lateral 2 Views (12/09/2023 3:15 PM CDT) Anatomical Region Laterality Modality Body, Chest N/A Computed Radiogr aphy 12/09/2023 4:30 PM CDT Impressions 12/09/2023 10:40 PM CDT The current study is compared with the prior radiograph dated 05/20/2020. Cholecystectomy clips are seen in the right upper quadrant. There is no consolidation, pleural effusion, or pneumothorax. ??There is minimal streaky left retrocardiac atelectasis. ??The cardiomediastinal silhouette is stable. ??Calcified granulomas are noted in the mediastinum. Dictated by: Vasyl Natarajan M.D. The radiology attending physician has personally reviewed this study, and had reviewed and/or edited this written report and agrees with it. Electronically signed by: Sly Correa M.D. Narrative 12/09/2023 10:40 PM CDT EXAMINATION: 2 view chest radiograph Procedure Note Sly Correa MD PhD - 12/09/2023 EXAMINATION: 2 view chest radiograph IMPRESSION: The current study is compared with the prior radiograph dated 05/20/2020. Cholecystectomy clips are seen in the right upper quadrant. There is no consolidation, pleural effusion, or pneumothorax. There is minimal streaky left retrocardiac atelectasis. The cardiomediastinal silhouette is stable. Calcified granulomas are noted in the mediastinum. Dictated by: Vasyl Natarajan M.D. The radiology attending physician has personally reviewed this study, and had reviewed and/or edited this written report and agrees with it. Electronically signed by: Sly Correa M.D. Newton Mendiola MD IMG XR PROCEDURES Final Resul t * XR Spine Cervical Complete 4 Or 5 Vw (12/09/2023 3:15 PM CDT) Anatomical Region Laterality Modality Spine N/A Computed Radiogr aphy 12/09/2023 4:23 PM CDT Impressions 12/09/2023 4:27 PM CDT Right C3-C4 mild facet arthropathy with minimal stenosis. ??Mild to moderate degenerative disc disease of cervical spine from C3-C6. Dictated by: Nettie Lopez M.D. The radiology attending physician has personally reviewed this study, and had reviewed and/or edited this written report and agrees with it. Electronically signed by: Jean Skaggs D.O. Narrative 12/09/2023 4:27 PM CDT EXAMINATION: XR SPINE CERVICAL COMPLETE 4 OR 5 VW HISTORY: Night sweats, neck pain. FINDINGS: 5 radiographs of cervical spine in frontal and lateral projection as well as oblique projections are provided no prior radiographs available for comparison. ??Graft body heights are preserved. ?? Mild to moderate degenerative disc disease of cervical spine most pronounced at C3-C6. ??Right C3-C4 facet arthropathy with minimal stenosis. Left neuroforamina are widely patent. ??No significant listhesis. Left neuroforamina are widely patent. Procedure Note Jean Skaggs, DO - 12/09/2023 EXAMINATION: XR SPINE CERVICAL COMPLETE 4 OR 5 VW HISTORY: Night sweats, neck pain. FINDINGS: 5 radiographs of cervical spine in frontal and lateral projection as well as oblique projections are provided no prior radiographs available for comparison. Graft body heights are preserved. Mild to moderate degenerative disc disease of cervical spine most pronounced at C3-C6. Right C3-C4 facet arthropathy with minimal stenosis. Left neuroforamina are widely patent. No significant listhesis. Left neuroforamina are widely patent. IMPRESSION: Right C3-C4 mild facet arthropathy with minimal stenosis. Mild to moderate degenerative disc disease of cervical spine from C3-C6. Dictated by: Nettie Lopez M.D. The radiology attending physician has personally reviewed this study, and had reviewed and/or edited this written report and agrees with it. Electronically signed by: Jean Skaggs D.O. Newton Mendiola MD IMG XR PROCEDURES Final Resul t documented in this encounter Visit Diagnoses Diagnosis Night sweats Generalized hyperhidrosis Neck pain Cervicalgia documented in this encounter Care Teams Surveying Teacher Relationship Specialty Start Date End Date Newton Mendiola MD [address] [address] PCP - General 06/09/16 Sly Cade MD [address] [address] Referring Physician Cardiology 12/07/18 documented as of this encounter
--- OUTSIDE RECORDS SUMMARY | 2024-03-18 04:58 | XMS_ITS | Encounter Summary ---
Author Organization [facility] Address [address] [place] [address] Phone Care Team Providers Care Asphalt Paving Foreman Name Role Phone Newton Mendiola MD Primary Care Provider [phone] Sly Cade MD Unavailable [phone] Encounter Details Date Type Department Care Team (Late st Contact Info) Description 09/09/2022 Telephone [facility] [address] [facility] [address] Building [address] [place] [address] Chelo Wheeler RMA Social History Tobacco Use Types Packs/Day Years [...] and Family Not on file 2021 Attends [employer] Services Not on file 01/16 Active Member [...] you are drinking? 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 Gender Identity Not on file Sexual Orientation Not on file documented as of this encounter Miscellaneous Notes * Telephone Encounter - Chelo Wheeler RMA - 09/09/2022 3:54 PM CDT Refill sent documented in this encounter Plan of Treatment Scheduled Procedures Name Priority Associated Diagnoses Date/Ti me ESOPHAGOGASTRODUODENOSCOPY Nausea Colon cancer screening COLONOSCOPY Nausea Colon cancer screening documented as of this encounter Visit Diagnoses Not on filedocumented in this encounter Care Teams Asphalt Paving Foreman Relationship Specialty Start Date End Date Newton Mendiola MD [address] [address] PCP - General 06/09/16 Sly Cade MD [address] [address] Referring Physician Cardiology 12/07/18 documented as of this encounter
--- OUTSIDE RECORDS SUMMARY | 2024-03-18 04:58 | XMS_ITS | Encounter Summary ---
Author Organization [facility] Address [address] [place] [address] Phone Care Team Providers Care Computer Console Operator Name Role Phone Newton Mendiola MD Primary Care Provider [phone] Sly Cade MD Unavailable [phone] Reason for Visit * Reason Onset Date Comments Allison JONES 08/20/2023 Encounter Details Date Type Department Care Team (Late st Contact Info) Description 08/20/2023 Telephone [facility] Cardiology [address] [facility] Medical Office Building [address] [place] [address] Matt Remy MD [address] [place] [address] Allison JONES Social History Tobacco Use Types Packs/Day Years [...] and Family Not on file 2021 Attends Religion Services Not on file 01/16 Active Member [...] on file 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 OZEMPIC INJ 2MG/3ML is approved through 08/19/2024. Your patient may now fill this prescription and it will be covered.. Authorization Expiration Date: August 19, 2024. * Telephone Encounter - Sharmaine Iyer RMA - 08/20/2023 9:36 AM CDT PA renewal for Ozempic began via [facility], [facility]. [place]: [id number] documented in this encounter Plan of Treatment Scheduled Procedures Name Priority Associated Diagnoses Date/Ti me ESOPHAGOGASTRODUODENOSCOPY Nausea Colon cancer screening COLONOSCOPY Nausea Colon cancer screening documented as of this encounter Visit Diagnoses Not on filedocumented in this encounter Care Teams Computer Console Operator Relationship Specialty Start Date End Date Newton Mendiola MD [address] [address] PCP - General 06/09/16 Sly Cade MD [address] [address] Referring Physician Cardiology 12/07/18 documented as of this encounter
--- OUTSIDE RECORDS SUMMARY | 2024-03-18 04:58 | XMS_ITS | Encounter Summary ---
Author Organization [facility] Healthcare Address [address] [place] [address] Care Team Providers Care Director Index Name Role Phone Newton Mendiola MD Primary Care Provider [phone] Sly Cade MD Unavailable [phone] Reason for Referral * Diagnostic Imaging (Routine) - Closed Specialty Diagnoses / Procedures Referred By Nino fletcher Referred To Contact Diagnoses Thyroid nodule Procedures US Thyroid Vicky Donaldson NP [address] [address] Phone: tel: fax: [address] [address] Referral ID Status Reason Start Date Expiration Date Visits Re quested Visits Authorized Closed 08/28/2023 09/26/2024 1 1 Reason for Visit * Diagnostic Imaging (Routine) - Closed Specialty Diagnoses / Procedures Referred By Contkira fletcher Referred To Contact Diagnoses Thyroid nodule Procedures US Thyroid Vicky Donaldson NP [address] [address] Phone: tel: fax: [address] [address] Referral ID Status Reason Start Date Expiration Date Visits Re quested Visits Authorized Closed 08/28/2023 09/26/2024 1 1 Encounter Details Date Type Department Care Team (Latest Contact Info) Description 09/15/2023 2:42 PM CDT - 09/15/2023 11:59 PM CDT Hospital Encounter [facility]) [facility] [place] [address] Thyroid nodule Discharge Disposition: Discharge to home or self [...] and Family Not on file 2021 Attends [employer] Not on file 01/16 Active Member [...] place to sleep or slept in a long-term (including now)? 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 Gender Identity Not on file Sexual Orientation Not on file documented as of this encounter Medications at Time of Discharge aspirin 81 mg tablet Take 1 tablet (81 mg total) by mouth daily atorvastatin (LIPITOR) 40 mg tablet Take 1 tablet (40 mg total) by mouth nightly 90 tablet 1 09/01/2023 cetirizine (ZyrTEC) 10 mg tablet Take 1 tablet (10 mg total) by mouth daily cyanocobalamin, vitamin B-12, (VITAMIN B-12 ORAL) Take by mouth daily ergocalciferol (VITAMIN D) 50,000 unit capsule TAKE 1 CAPSULE (50,000 UNITS TOTAL) BY MOUTH ONCE A WEEK FRIDAYS 12 capsule 1 09/15/2022 losartan (COZAAR) 50 mg tablet Take 1 tablet (50 mg total) by mouth daily 90 tablet 3 12/08/2022 metoprolol XL (TOPROL-XL) 100 mg 24 hr [...] MOUTH EVERY DAY 90 tablet 3 04/20/2023 buPROPion XL (WELLBUTRIN XL) 300 mg 24 hr tablet Take 1 tablet (300 mg total) by mouth every morning 90 tablet 08/30/2023 12/01/19 24 dapagliflozin propanediol (Farxiga) 10 mg tablet TAKE 1 TABLET BY MOUTH EVERY DAY 90 tablet 2 12/17/2022 11/23/[address] (DEPAKOTE) 125 mg EC tablet TAKE 1 TABLET BY MOUTH TWICE A DAY 60 tablet 1 11/24/2022 09/21/19 24 semaglutide (Ozempic) 2 mg/dose (8 mg/3 mL) pen injector injection INJECT 2 MG SUBCUTANEOUSLY EVERY 7 DAYS 2 mL 1 05/15/2023 11/02/19 24 valACYclovir (VALTREX) 1 gram tablet TAKE 2 TABLETS BY MOUTH EVERY 12 HOURS FOR 1 DAY 12 tablet 1 09/01/2023 02/15/20 24 documented as of this encounter Discharge Disposition Disposition Code Departure Means Destination Discharge to home or self care documented in this encounter Miscellaneous Notes * Result Encounter Note - Khang Cade MD - 09/15/2023 11:59 PM CDT Thyroid nodules are all stable in size. Recommend repeat thyroid ultrasound in 2 years. documented in this encounter Plan of Treatment Scheduled Procedures Name Priority Associated Diagnoses Date/Ti me ESOPHAGOGASTRODUODENOSCOPY Nausea Colon cancer screening COLONOSCOPY Nausea Colon cancer screening documented as of this encounter Procedures Procedure Name Priority Date/Time Associated Diagnosis Comments US THYROID Schedule Routine, Read Routine (OP Routine) 09/15/2023 4:05 PM CDT Thyroid nodule documented in this encounter Results * US Thyroid (09/15/2023 4:05 PM CDT) Anatomical Region Laterality Modality Head and Neck N/A Ultrasound 09/15/2023 4:09 PM CDT Impressions 09/15/2023 5:05 PM CDT No significant change in numerous solid isoechoic thyroid nodules as described above. ??Recommend follow-up thyroid sonogram in 2 years to complete evaluation per ACR guidelines. ACR TI-RADS recommendations TR5 (>=7 points) (risk of malignancy > 20%) >=1 cm: FNA 0.5-0.9 cm: follow-up US every year for 5 years <0.5 cm: no further evaluation TR4 (4-6 points) (risk of malignancy 5-20%) >=1.5 cm: FNA 1-1.4 cm: follow-up US in 1, 2, 3, and 5 years <1.0 cm: no further evaluation TR3 (3 points) (risk of malignancy 2-5%) >=2.5 cm: FNA 1.5-2.4 cm: follow-up US in 1, 3, and 5 years <1.5 cm: no further evaluation TR2 (2 points) and TR1 (0 points) (risk of malignancy < 2%) No FNA or follow-up US Dictated by: Cosme Mosley MD The radiology attending physician has personally reviewed this study, and had reviewed and/or edited this written report and agrees with it. Electronically signed by: Kiki Torres M.D. Narrative 09/15/2023 5:05 PM CDT EXAMINATION: THYROID SONOGRAM HISTORY: ??58 year old female with history of Hodgkin lymphoma status post chest radiation therapy with incidentally noted thyroid nodules. Follow-up. Prior Biopsy: No Patient Risk Factors: Prior radiation Prior Ultrasound: ??06/03/2021 FINDINGS: The thyroid is enlarged in size. Size right lobe: 4.2 cm craniocaudal, 1.7 cm transverse, 1.7 cm AP. Size left lobe: 5.2 cm craniocaudal, 2.3 cm transverse, 0.7 cm AP. Size isthmus: 0.2 cm AP. Estimated total number of nodules >/= 1 cm: At least 3 Number of spongiform nodules >/= 2 cm not described below (TR1): 0 Number of mixed cystic and solid nodules >/= 1.5 cm not described below (TR2): 0 There are numerous conglomerations of similar-appearing solid isoechoic nodules throughout the thyroid lobes. ??Architect thyroid nodules are described below and compared to 06/03/2021. Nodule 1: Location: Right mid . Size: 1.5 cm craniocaudal x 1.0 cm transverse x 0.7 cm AP (previously 1.7 cm craniocaudal x 1.0 cm transverse x 0.6 cm AP) Maximum Size: 1.5 cm Composition: Solid/almost completely solid (2) Echogenicity: Isoechoic (1) Shape: Not taller than wide (0) Margins: Smooth (0) Echogenic foci: None (0) Additional Echogenic foci 1: None (0) Additional Echogenic foci 2: None (0) ACR TI-RADS total points: 3 ACR TI-RADS risk category: TR3 (3 points) Follow-up details: Prior biopsy: No Significant change in size (>/= 20% in two dimensions and minimal increase of 2 mm): No Change in features: No Change in ACR TI-RADS risk category: No Nodule 2: Location: Left upper . Size: 1.0 cm craniocaudal x 1.0 cm transverse x 1.0 cm AP (previously 1 cm craniocaudal x 1.1 cm transverse x 1.1 cm AP) Maximum Size: 1.0 cm Composition: Solid/almost completely solid (2) Echogenicity: Isoechoic (1) Shape: Not taller than wide (0) Margins: Smooth (0) Echogenic foci: None (0) Additional Echogenic foci 1: None (0) Additional Echogenic foci 2: None (0) ACR TI-RADS total points: 3 ACR TI-RADS risk category: TR3 (3 points) Follow-up details: Prior biopsy: No Significant change in size (>/= 20% in two dimensions and minimal increase of 2 mm): No Change in features: No Change in ACR TI-RADS risk category: No Nodule 3: Location: Left lower . Size: 1.9 cm craniocaudal x 1.9 cm transverse x 1.9 cm AP (previously 2.1 cm craniocaudal x 1.7 cm transverse x 1.7 cm AP) Maximum Size: 1.9 cm Composition: Solid/almost completely solid (2) Echogenicity: Isoechoic (1) Shape: Not taller than wide (0) Margins: Smooth (0) Echogenic foci: None (0) Additional Echogenic foci 1: None (0) Additional Echogenic foci 2: None (0) ACR TI-RADS total points: 3 ACR TI-RADS risk category: TR3 (3 points) Follow-up details: Prior biopsy: No Significant change in size (>/= 20% in two dimensions and minimal increase of 2 mm): No Change in features: No Change in ACR TI-RADS risk category: No Procedure Note Kiki Torres MD - 09/15/2023 EXAMINATION: THYROID SONOGRAM HISTORY: 58 year old female with history of Hodgkin lymphoma status post chest radiation therapy with incidentally noted thyroid nodules. Follow-up. Prior Biopsy: No Patient Risk Factors: Prior radiation Prior Ultrasound: 06/03/2021 FINDINGS: The thyroid is enlarged in size. Size right lobe: 4.2 cm craniocaudal, 1.7 cm transverse, 1.7 cm AP. Size left lobe: 5.2 cm craniocaudal, 2.3 cm transverse, 0.7 cm AP. Size isthmus: 0.2 cm AP. Estimated total number of nodules >/= 1 cm: At least 3 Number of spongiform nodules >/= 2 cm not described below (TR1): 0 Number of mixed cystic and solid nodules >/= 1.5 cm not described below (TR2): 0 There are numerous conglomerations of similar-appearing solid isoechoic nodules throughout the thyroid lobes. Architect thyroid nodules are described below and compared to 06/03/2021. Nodule 1: Location: Right mid . Size: 1.5 cm craniocaudal x 1.0 cm transverse x 0.7 cm AP (previously 1.7 cm craniocaudal x 1.0 cm transverse x 0.6 cm AP) Maximum Size: 1.5 cm Composition: Solid/almost completely solid (2) Echogenicity: Isoechoic (1) Shape: Not taller than wide (0) Margins: Smooth (0) Echogenic foci: None (0) Additional Echogenic foci 1: None (0) Additional Echogenic foci 2: None (0) ACR TI-RADS total points: 3 ACR TI-RADS risk category: TR3 (3 points) Follow-up details: Prior biopsy: No Significant change in size (>/= 20% in two dimensions and minimal increase of 2 mm): No Change in features: No Change in ACR TI-RADS risk category: No Nodule 2: Location: Left upper . Size: 1.0 cm craniocaudal x 1.0 cm transverse x 1.0 cm AP (previously 1 cm craniocaudal x 1.1 cm transverse x 1.1 cm AP) Maximum Size: 1.0 cm Composition: Solid/almost completely solid (2) Echogenicity: Isoechoic (1) Shape: Not taller than wide (0) Margins: Smooth (0) Echogenic foci: None (0) Additional Echogenic foci 1: None (0) Additional Echogenic foci 2: None (0) ACR TI-RADS total points: 3 ACR TI-RADS risk category: TR3 (3 points) Follow-up details: Prior biopsy: No Significant change in size (>/= 20% in two dimensions and minimal increase of 2 mm): No Change in features: No Change in ACR TI-RADS risk category: No Nodule 3: Location: Left lower . Size: 1.9 cm craniocaudal x 1.9 cm transverse x 1.9 cm AP (previously 2.1 cm craniocaudal x 1.7 cm transverse x 1.7 cm AP) Maximum Size: 1.9 cm Composition: Solid/almost completely solid (2) Echogenicity: Isoechoic (1) Shape: Not taller than wide (0) Margins: Smooth (0) Echogenic foci: None (0) Additional Echogenic foci 1: None (0) Additional Echogenic foci 2: None (0) ACR TI-RADS total points: 3 ACR TI-RADS risk category: TR3 (3 points) Follow-up details: Prior biopsy: No Significant change in size (>/= 20% in two dimensions and minimal increase of 2 mm): No Change in features: No Change in ACR TI-RADS risk category: No IMPRESSION: No significant change in numerous solid isoechoic thyroid nodules as described above. Recommend follow-up thyroid sonogram in 2 years to complete evaluation per ACR guidelines. ACR TI-RADS recommendations TR5 (>=7 points) (risk of malignancy > 20%) >=1 cm: FNA 0.5-0.9 cm: follow-up US every year for 5 years <0.5 cm: no further evaluation TR4 (4-6 points) (risk of malignancy 5-20%) >=1.5 cm: FNA 1-1.4 cm: follow-up US in 1, 2, 3, and 5 years <1.0 cm: no further evaluation TR3 (3 points) (risk of malignancy 2-5%) >=2.5 cm: FNA 1.5-2.4 cm: follow-up US in 1, 3, and 5 years <1.5 cm: no further evaluation TR2 (2 points) and TR1 (0 points) (risk of malignancy < 2%) No FNA or follow-up US Dictated by: Cosme Mosley MD The radiology attending physician has personally reviewed this study, and had reviewed and/or edited this written report and agrees with it. Electronically signed by: Kiki Torres M.D. us Vicky Donaldson SEAL MIXER IMG US PROCEDURES Final Result documented in this encounter Visit Diagnoses Diagnosis Thyroid nodule Nontoxic uninodular goiter documented in this encounter Care Teams Director Index Relationship Specialty Start Date End Date Newton Mendiola MD [address] [address] PCP - General 06/09/16 Sly Cade MD [address] [address] Referring Physician Cardiology 12/07/18 documented as of this encounter
--- OUTSIDE RECORDS SUMMARY | 2024-03-18 04:58 | XMS_ITS | Encounter Summary ---
Author Organization [facility] Address [address] [place] [address] Care Team Providers Care Metal Cans Supervisor Name Role Phone Newton Mendiola MD Primary Care Provider [phone] Sly Cade MD Unavailable [phone] Reason for Referral * Diagnostic Imaging (Routine) - Closed Specialty Diagnoses / Procedures Referred By Nino fletcher Referred To Contact Diagnoses Thyroid nodule Procedures US Thyroid Vicky Donaldson NP [address] [facility] [address] [place] [address] Phone: tel: fax: [address] [address] Referral ID Status Reason Start Date Expiration Date Visits Re quested Visits Authorized [id number] Closed 08/28/2023 09/26/2024 1 1 Reason for Visit * Reason Comments Neck Pain Encounter Details Date Type Department Care Team (Late st Contact Info) Description 08/28/2023 11:00 AM CDT Office Visit [facility] [address] [facility] [address] [place] [id number] Vicky Donaldson NP [address] [facility] [address] [place] [address] Mixed hyperlipidemia (Primary Dx); Type 2 diabetes mellitus without complication, without long-term current use of insulin (CMS/HCC) (HCC); Thyroid nodule; Vitamin D deficiency; Vertigo Social History Tobacco Use Types Packs/Day Years [...] place to sleep or slept in a fdc (including now)? 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 Gender Identity Not on file Sexual Orientation Not on file documented as of this encounter Last Filed Vital Signs Vital Sign Reading Time Taken Comments Blood Pressure 150/82 08/28/2023 10:51 AM CDT Pulse 82 08/28/2023 10:51 AM CDT Temperature - - Respiratory Rate - - Oxygen Saturation 98% 08/28/2023 10:51 AM CDT Inhaled Oxygen Concentration - - Weight 82.1 kg (181 lb) 08/28/2023 10:51 AM CDT Height 162.6 cm (5' 4 ) 08/28/2023 10:51 AM CDT Body Mass Index 31.07 08/28/2023 10:51 AM CDT documented in this encounter Progress Notes * Vicky Donaldson, BRIT - 08/28/2023 11:00 AM CDT Office Visit Katy Sauceda is a 58 y.o. female here for Neck Pain HPI 58F with HLD, HTN, MDD, Vitamin D deficiency, prediabetes, MNG and NICM. Hx of Hodgkin d/se (1992) & descending aortic thrombus following COVID in 2020. Follows regularly with Dr. Remy in Cardiology 2021 A1C 6.2% Since last visit in 2021 Cardiology has started patient on Ozempic, however has been off for monthsdue to s/e. Presents today for f/u A1C 7% today, is preparing to resume Ozempic at 0.25mg weekly. Has had a couple of weeks of anterior neck pain down into sternum. It is not in her throat. Also has ear pain Also has clicking in R jaw with movement. Is having some diplopia and vertigo, 2 x the past week, where she feels like her eye is crossing. Has emesis with this as well. Falls to the left. She did go for eye exam late May/early June for eye exam that was normal. Last thyroid US 05/2021 with recommendation for f/u imaging in 1 year for right mid and right lower nodule. Not done as she has not been seen since. Current Medications Current Outpatient Medications: aspirin 81 mg tablet, [...] AWEEK FRIDAYS, Disp: 12 capsule, Rfl: 1 losartan (COZAAR) 50 mg tablet, Take 1 [...] EVERY DAY, Disp: 90 tablet, Rfl:4 semaglutide (Ozempic) 2 mg/dose (8 mg/3 mL) pen injector injection, INJECT 2 MG SUBCUTANEOUSLY EVERY 7 DAYS, Disp: 2 mL, Rfl: 1 spironolactone (ALDACTONE) 25 mg tablet, TAKE 1 TABLET BY MOUTH EVERY DAY, Disp: 90 tablet, Rfl: 3 valACYclovir (VALTREX) 1 gram tablet, TAKE 2 TABLETS BY MOUTH EVERY 12 HOURS FOR 1 DAY, Disp: 12 tablet, Rfl: 1 Current Facility-Administered Medications: perflutren protein-a (OPTISON) 3 mL in sodium chloride 0.9% 8 mL syringe, 1-8 mL, intravenous, Oncein imaging, Matt Remy MD Allergies Allergies Allergen Reactions Codeine Other (See comments) and Vomiting Reaction: RASH;, Entresto [Sacubitril-Valsartan] Nausea & Vomiting and Fatigue Hydrocodone Vomiting Penicillin Other (See comments) Reaction: UNKNOWN, Past Medical and Surgical History: Patient Active Problem List Diagnosis LV dysfunction LBBB (left bundle branch block) Mixed hyperlipidemia Chronic insomnia Cardiomyopathy (HCC) Chronic systolic (congestive) heart failure (HCC) Gastroesophageal reflux disease without esophagitis Hypertension Obesity with body mass index 30 or greater Snoring Systolic dysfunction Insomnia Type 2 diabetes mellitus without complication, without long-term current use of insulin (CMS/HCC) (HCC) Allergic rhinitis Dissection of thoracic aorta (HCC) Splenic infarct Moderate recurrent major depression (HCC) Thyroid nodule Diplopia Vertigo Past Medical History: Diagnosis Date Bipolar disorder (HCC) CHF (congestive heart failure) (CMS/HCC) (HCC) COVID-19 virus infection 01/15/2021 Depression GERD (gastroesophageal reflux disease) Hodgkin lymphoma (HCC) 09/09/2016 Hypertension Irritable bowel syndrome Kidney stone Thyroid nodule Past Surgical History: Procedure Laterality Date CHOLECYSTECTOMY COLONOSCOPY CYST REMOVAL hodgkins biopsy OTHER SURGICAL HISTORY vocal cord nodule removal PORT PLACEMENT CHEST >5 YEARS 1992 ROTATOR CUFF REPAIR 2009 THYROID SURGERY 2004 Family History: Family History Problem Relation Age of Onset Hypertension Mother Hyperlipidemia Mother Hypertension Father Hyperlipidemia Father Diabetes Father Social History: Social History Tobacco Use Smoking status: Former Current packs/day: 0.00 Average packs/day: 0.5 packs/day for 10.0 years (5.0 ttl pk-yrs) Types: Cigarettes Start date: 1989 Quit date: 2000 Years since quittin.4 Smokeless tobacco: Never Substance and Sexual Activity Drug use: Yes Types: Marijuana Sexual activity: Defer Alcohol Use: Not At Risk (10/03/2021) AUDIT-C Frequency of Alcohol Consumption: Never Average Number of Drinks: Patient does not drink Frequency of Binge Drinking: Never Social History Social History Narrative Not on file Immunization History Administered Date(s) Administered Influenza, Trivalent, Intramuscular 01/10/2014 Tdap 04/25/2023 Assessment/Plan Review of Systems Review of Systems See HPI Physical Exam Physical Exam Constitutional: Appearance: Normal appearance. She is normal weight. She is not ill-appearing. HENT: Head: Normocephalic. Right Ear: External ear normal. Left Ear: External ear normal. Nose: Nose normal. Mouth/Throat: Mouth: Mucous membranes are moist. Pharynx: Oropharynx is clear. Eyes: Pupils: Pupils are equal, round, and reactive to light. Cardiovascular: Rate and Rhythm: Normal rate and regular rhythm. Pulses: Normal pulses. Heart sounds: Normal heart sounds. Pulmonary: Effort: Pulmonary effort is normal. Breath sounds: Normal breath sounds. Abdominal: General: Bowel sounds are normal. Palpations: Abdomen is soft. Tenderness: There is no abdominal tenderness. There is no guarding. Musculoskeletal: General: Normal range of motion. Cervical back: Normal range of motion. Skin: General: Skin is warm and dry. Capillary Refill: Capillary refill takes less than 2 seconds. Findings: No lesion or rash. Neurological: General: No focal deficit present. Mental Status: She is alert and oriented to person, place, and time. Cranial Nerves: No cranial nerve deficit. Gait: Gait normal. Psychiatric: Mood and Affect: Mood normal. Behavior: Behavior normal. Thought Content: Thought content normal. Judgment: Judgment normal. Vitals BP 150/82 (BP Location: Left arm, Patient Position: Sitting) Pulse 82 Ht 162.6 cm (5' 4 ) Wt 82.1 kg (181 lb) SpO2 98% BMI 31.07 kg/m?? Wt Readings from Last 3 Encounters: 08/28/23 82.1 kg (181 lb) 07/16/23 80.7 kg (178 lb) 07/07/23 80.7 kg (178 lb) Body mass index is 31.07 kg/m??. Assessment and Plan Diagnoses and all orders for this visit: Mixed hyperlipidemia (Primary) Assessment & Plan: Reviewed today, TC 148 LDL 90 TRG 103 HDL 37 Orders: - POCT glucose - POCT hemoglobin A1c - POCT lipid panel Type 2 diabetes mellitus without complication, without long-term current use of insulin ([facility]) ([facility]) Assessment & Plan: Labs today Is going to resume her 0.25mg Ozempic weekly per Cardiology A1C 7% Orders: - POCT glucose - POCT hemoglobin A1c - POCT lipid panel - CBC with auto differential; Future - Comprehensive metabolic panel; Future - Urinalysis reflex to microscopic; Future - Thyroid Function Winn; Future - Albumin Creatinine Ratio, Urine; Future Thyroid nodule Assessment & Plan: Repeat US Orders: - US Thyroid; Future Vitamin D deficiency - Vitamin D 25 hydroxy; Future Vertigo Assessment & Plan: Labs today Reviewed 05/2022 MRI, consider repeat based on lab findings with diplopia c/o Is UTD on eye exam Recommendations and Follow up No follow-ups on file. Vicky Donaldson NP documented in this encounter Miscellaneous Notes * Assessment & Plan Note - Vicky Donaldson NP - 08/28/2023 11:20 AM CDT Associated Problem(s): Vertigo Labs today Reviewed 05/2022 MRI, consider repeat based on lab findings with diplopia c/o Is UTD on eye exam * Assessment & Plan Note - Vicky Donaldson NP - 08/28/2023 11:19 AM CDT Associated Problem(s): Thyroid nodule Repeat US * Assessment & Plan Note - Vicky oDnaldson NP - 08/28/2023 11:18 AM CDT Associated Problem(s): Mixed hyperlipidemia Reviewed today, TC 148 LDL 90 TRG 103 HDL 37 * Assessment & Plan Note - Vicky Donaldson NP - 08/28/2023 11:17 AM CDT Associated Problem(s): Type 2 diabetes mellitus without complication, without long-term current useof insulin ([facility]/HCC) ([facility]) Labs today Is going to resume her 0.25mg Ozempic weekly per Cardiology A1C 7% documented in this encounter Plan of Treatment Scheduled Procedures Name Priority Associated Diagnoses Date/Ti me ESOPHAGOGASTRODUODENOSCOPY Nausea Colon cancer screening COLONOSCOPY Nausea Colon cancer screening documented as of this encounter Procedures Procedure Name Priority Date/Time Associated Diagnosis Comments ALBUMIN CREATININE RATIO, URINE Routine 08/28/2023 11:36 AM CDT Type 2 diabetes mellitus without complication, without long-term current use of insulin (CMS/HCC) ([facility]) THYROID FUNCTION CASCADE Routine 08/28/2023 11:29 AM CDT Type 2 diabetes mellitus without complication, without long-term current use of insulin (CMS/HCC) ([facility]) URINALYSIS AND REFLEX TO MICROSCOPIC Routine 08/28/2023 11:29 AM CDT Type 2 diabetes mellitus without complication, without long-term current use of insulin (CMS/HCC) ([facility]) CBC WITH AUTO DIFFERENTIAL Routine 08/28/2023 11:29 AM CDT Type 2 diabetes mellitus without complication, without long-term current use of insulin (CMS/HCC) ([facility]) VITAMIN D 25 HYDROXY Routine 08/28/2023 11:29 AM CDT Vitamin D deficiency COMPREHENSIVE METABOLIC PANEL Routine 08/28/2023 11:29 AM CDT Type 2 diabetes mellitus without complication, without long-term current use of insulin (CMS/HCC) ([facility]) POCT GLUCOSE 62440 Routine 08/28/2023 10 :41 AM CDT Mixed hyperlipidemia Type 2 diabetes mellitus without complication, without long-term current use of insulin (CMS/HCC) ([facility]) POCT HEMOGLOBIN A1C Routine 08/28/2023 1 0:41 AM CDT Mixed hyperlipidemia Type 2 diabetes mellitus without complication, without long-term current use of insulin (CMS/HCC) ([facility]) POCT LIPID PANEL Routine 08/28/2023 10:4 1 AM CDT Mixed hyperlipidemia Type 2 diabetes mellitus without complication, without long-term current use of insulin (CMS/HCC) (HCC) documented in this encounter Results * US [...] solid isoechoic nodules throughout the thyroid lobes. ??Special Needs Bus Driver thyroid nodules are described below and compared [...] solid isoechoic nodules throughout the thyroid lobes. Special Needs Bus Driver thyroid nodules are described below and compared [...] by: Kiki Torres M.D. us Vicky Donaldson NP IMG US PROCEDURES Final Result * Albumin Creatinine Ratio, Urine [...] 8:15 AM CDT Performed at: ??01 - [facility] ??[id number] Hospitality Job Titles: Vernon Connell PhD, Phone: ??[phone] Vicky Donaldson NP LAB URINE ORDERABLES Fin al Result Performing Organization Address [facility] de Phone Number [facility] - 01 * Thyroid Function Winn (08/28/2023 11:29 AM CDT) TSH 1.420 0.450 - 4.500 uIU/mL [facility] - 01 Comment: No apparent thyroid disorder. Additional testing not indicated. In rare instances, Secondary Hypothyroidism as well as Subclinical Hypothyroidism have been reported in some patients with normal TSH values. Blood 08/28/2023 11:2 9 AM CDT 08/28/2023 Narrative [facility] - 08/29/2023 8:15 AM CDT Performed at: ??01 - [facility] ??[id number] Hospitality Job Titles: Vernon Connell PhD, Phone: ??[phone] Vicky Donaldson NP LAB BLOOD ORDERABLES Fin al Result Performing Organization Address [facility] de Phone Number [facility] - 01 * Vitamin D 25 hydroxy (08/28/2023 11:29 AM CDT) Vitamin D, 25-Hydroxy 32.8 30.0 - 100.0 ng/mL [facility] - 01 Comment: Vitamin D deficiency has been defined by the [place] of Medicine and an Endocrine Society practice guideline as a level of serum 25-OH vitamin D less than 20 ng/mL (1,2). The Endocrine Society went on to further define vitamin D insufficiency as a level between 21 and 29 ng/mL (2). 1. IOM ([place] of Medicine). 2010. Dietary reference ?? intakes for calcium and D. [place]: The ?? [employer]. 2. Ena MF, Iqra RAMIREZ, Leandra TONG, et al. ?? Evaluation, treatment, and prevention of vitamin D ?? deficiency: an Endocrine Society clinical practice ?? guideline. JCEM. 2010; 96(7):1911-30. Blood 08/28/2023 11:2 9 AM CDT 08/28/2023 Narrative [facility] - 08/29/2023 8:15 AM CDT Performed at: ??01 - [facility] ??[id number] Hospitality Job Titles: Vernon Connell PhD, Phone: ??[phone] Vicky Donaldson PRICE LISTER LAB BLOOD ORDERABLES Fin al Result [facility] - 01 * (ABNORMAL) Urinalysis reflex to microscopic (08/28/2023 11:29 AM CDT) Pathologist [facility] Specific [place] 1.029 1.005 - 1.030 [facility] - 01 pH, ur 5.5 5.0 - 7.5 [facility] - 01 Color, ur Yellow Yellow [facility] - 01 Appearance, ur Clear Clear [facility] - 01 Leukocyte esterase, ur Negative Negative [facility] - 01 Protein, ur Negative Negative/Tra ce [facility] - 01 Glucose, ur 3+(A) Negative [facility] - 01 Ketones, ur Negative Negative [facility] - 01 Blood, ur Negative Negative [facility] - 01 Bilirubin, ur Negative Negative [facility] - 01 Urobilinogen, quant, ur 0.2 0.2 - 1.0 mg/dL [facility] - 01 Nitrites, ur Negative Negative [facility] - 01 Urinalysis, microscopic exam Comment [facility] - 01 Comment:Microscopic not ethan cated and not performed. Urine 08/28/2023 11:2 9 AM CDT 08/28/2023 Narrative [facility] - 08/29/2023 8:15 AM CDT Performed at: ??01 - [facility], [place], [place] ??[id number] Hospitality Job Titles: Vernon Connell PhD, Phone: ??[phone] us Vicky Donaldson PRICE LISTER LAB URINE ORDERABLES Fin al Result [facility] [...] 8:15 AM CDT Performed at: ??01 - [facility], [place], [place] ??[id number] Hospitality Job Titles: Vernon Connell PhD, Phone: ??[phone] us Vicky Donaldson PRICE LISTER LAB BLOOD ORDERABLES Fin al Result [facility] - 01 * (ABNORMAL) CBC with auto differential (08/28/2023 11:29 AM CDT) WBC 8.7 3.4 - 10.8 x10E3/uL [facility] - 01 RBC 4.49 3.77 - 5.28 x10E6/uL [facility] - 01 Hgb 13.0 11.1 - 15.9 g/dL [facility] - 01 Hct 40.1 34.0 - 46.6 % [facility] - 01 MCV 89 79 - 97 fL [facility] - 01 MCH 29.0 26.6 - 33.0 pg [facility] - 01 MCHC 32.4 31.5 - 35.7 g/dL [facility] - 01 Rdw 12.7 11.7 - 15.4 % [facility] - 01 Platelets 505(H) 150 - 450 x10E3/uL [facility] - 01 Neutrophils pct 60 Not Estab. % [facility] - 01 Lymphs pct 29 Not Estab. % [facility] - 01 Monocytes pct 9 Not Estab. % [facility] - 01 Eosinophils pct 1 Not Estab. % [facility] - 01 Basophil pct 1 Not Estab. % [facility] - 01 Neutrophil abs 5.3 1.4 - 7.0 x10E3/uL [facility] - 01 Lymphs (Absolute) 2.5 0.7 - 3.1 x10E3/uL [facility] - 01 Monocyte abs 0.8 0.1 - 0.9 x10E3/uL [facility] - 01 Eosinophils, abs 0.1 0.0 - 0.4 x10E3/uL [facility] - 01 Basophils, abs 0.1 0.0 - 0.2 x10E3/uL [facility] - 01 Immature Granulocytes 0 Not Estab. % [facility] - 01 Immature Grans (Abs) 0.0 0.0 - 0.1 x10E3/uL [facility] - 01 Blood 08/28/2023 11:2 9 AM CDT 08/28/2023 Narrative [facility] - 08/29/2023 8:15 AM CDT Performed at: ??01 - [facility] [address] ??[id number] Hospitality Job Titles: Vernon Connell PhD, Phone: ??[phone] Vicky Donaldson PRICE LISTER LAB BLOOD ORDERABLES Fin al Result [facility] - 01 * POCT lipid panel (08/28/2023 10:41 AM CDT) HDL, POC 37 mg/dL Triglycerides, POC 103 mg/dL LDL Cholesterol POC 90 mg/dL Chol/HDL Ratio, POC 4 Non-HDL Cholesterol, POC 111 mg/dL Cholesterol Total, POC 148 mg/dL Capillary blood 08/28/2023 1 0:41 AM CDT Vicky Donaldson NP POINT OF CARE TEST ORDER FRANCISCO Final Result * POCT hemoglobin A1c (08/28/2023 10:41 AM CDT) Hemoglobin A1C, POC 7 % Blood 08/28/2023 10:4 1 AM CDT Vicky Donaldson NP POINT OF CARE TEST ORDER FRANCISCO Final Result * POCT glucose (08/28/2023 10:41 AM CDT) Glucose Blood, POC 117 mg/dL Blood 08/28/2023 10:4 1 AM CDT Vicky Reaves Mendoza PRICE LISTER POINT OF CARE TEST ORDER FRANCISCO Final Result documented in this encounter Visit Diagnoses Diagnosis Mixed hyperlipidemia- Primary Type 2 diabetes mellitus without complication, without long-term current use of insulin (CMS/HCC) (HCC) Thyroid nodule Nontoxic uninodular goiter Vitamin D deficiency Vertigo Dizziness and giddiness Thyroid nodule Nontoxic uninodular goiter documented in this encounter Care Teams Metal Cans Supervisor Relationship Specialty Start Date End Date Newton Mendiola MD [address] [address] PCP - General 06/09/16 Sly Cade MD [address] [address] Referring Physician Cardiology 12/07/18 documented as of this encounter
--- OUTSIDE RECORDS SUMMARY | 2024-03-18 04:58 | XMS_ITS | Encounter Summary ---
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 Gender Identity Not on file Sexual Orientation Not on file documented as of this encounter Ordered Prescriptions Prescription Sig Dispense Quantity Refills Last Filled Start Date End Date semaglutide (Ozempic) 0.25 mg or 0.5 mg (2 mg/3 mL) pen injector injection Inject 0.5 mg under the skin every 7 days 1.5 mL 1 09/11/2022 09/15/2022 documented in this encounter Miscellaneous Notes * Telephone Encounter - Chelo Wheeler RMA - 09/11/2022 2:13 PM CDT Refill sent documented in this encounter Plan of Treatment Scheduled Procedures Name Priority Associated Diagnoses Date/Ti me ESOPHAGOGASTRODUODENOSCOPY Nausea Colon cancer screening COLONOSCOPY Nausea Colon cancer screening documented as of this encounter Visit Diagnoses Not on filedocumented in this encounter Discontinued Medications Medication Sig Discontinue Reason Start Date End Da te semaglutide (Ozempic) 0.25 mg or 0.5 mg (2 mg/3 mL) pen injector injection Inject 0.5 mg under the skin every 7 days Reorder 09/11/2022 documented as of this encounter Historical Medications * This list may reflect changes made after this encounter. semaglutide (Ozempic) 0.25 mg or 0.5 mg (2 mg/3 mL) pen injector injection Inject 0.5 mg under the skin every 7 days 09/11/2022 added in this encounter Care Teams Bus Mechanic Relationship Specialty Start Date End Date Newton Mendiola MD [address] [address] PCP - General 06/09/16 Sly Cade MD [address] [address] Referring Physician Cardiology 12/07/18 documented as of this encounter
--- OUTSIDE RECORDS SUMMARY | 2024-03-18 04:58 | XMS_ITS | Encounter Summary ---
Author Organization [facility] Address [address] [place] [address] Phone Care Team Providers Care Distance Education Teacher Name Role Phone Newton Mendiola MD Primary Care Provider [phone] Sly Cade MD Unavailable [phone] Reason for Visit * Reason Onset Date Comments Allison JONES 09/15/2022 Encounter Details Date Type Department Care Team (Late st Contact Info) Description 09/15/2022 Telephone [facility] Cardiology [address] [facility] [address] [place] [address] Matt Remy MD [address] [place] [address] Allison JONES Social History Tobacco Use Types [...] and Family Not on file 2021 Attends [employer] Not on file 01/16 Active Member [...] place to sleep or slept in a group home (including now)? 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 OZEMPIC INJ 2MG/3ML is approved through 09/16/2023. Pharmacy notified. * Telephone Encounter - Sharmaine Iyer - 09/15/2022 1:27 PM CDT PA for Ozempic (0.25 or 0.5 MG/DOSE) 2MG/3ML pen-injectors began via [facility]. [place]: [id number] documented in this encounter Plan of Treatment Scheduled Procedures Name Priority Associated Diagnoses Date/Ti me ESOPHAGOGASTRODUODENOSCOPY Nausea Colon cancer screening COLONOSCOPY Nausea Colon cancer screening documented as of this encounter Visit Diagnoses Not on filedocumented in this encounter Care Teams Distance Education Teacher Relationship Specialty Start Date End Date Newton Mendiola MD [address] [address] PCP - General 06/09/16 Sly Cade MD [address] [address] Referring Physician Cardiology 12/07/18 documented as of this encounter
--- OUTSIDE RECORDS SUMMARY | 2024-03-18 04:58 | XMS_ITS | Encounter Summary ---
Author Organization [facility] Address [address] [place] [address] Phone Care Team Providers Care Regulatory Associate Name Role Phone Newton Mendiola MD Primary Care Provider [phone] Sly Cade MD Unavailable Encounter Details Date Type Department Care Team (Late st Contact Info) Description 09/24/2022 Orders Only [facility] Cardiology [address] [facility] Advanced Medicine 8th [place] [address] [place] [address] Matt Remy MD [address] [place] [address] Social History Tobacco Use Types Packs/Day Years [...] and Family Not on file 2021 Attends Confucianist Services Not on file 01/16 Active Member [...] place to sleep or slept in a usp (including now)? 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 Gender Identity Not on file Sexual Orientation Not on file documented as of this encounter Plan of Treatment Scheduled Procedures Name Priority Associated Diagnoses Date/Ti me ESOPHAGOGASTRODUODENOSCOPY Nausea Colon cancer screening COLONOSCOPY Nausea Colon cancer screening documented as of this encounter Visit Diagnoses Not on filedocumented in this encounter Discontinued Medications Medication Sig Discontinue Reason Start Date End Da te losartan (COZAAR) 50 mg tablet TAKE 1 TABLET BY MOUTH EVERY DAY 07/21/2022 09/24/2022 documented as of this encounter Care Teams Regulatory Associate Relationship Specialty Start Date End Date Newton Mendiola MD [address] [address] PCP - General 06/09/16 Sly Cade MD [address] [address] Referring Physician Cardiology 12/07/18 documented as of this encounter
--- OUTSIDE RECORDS SUMMARY | 2024-03-18 04:58 | XMS_ITS | Encounter Summary ---
Author Organization [facility] Address [address] [place] [address] Care Team Providers Care Roof Foreman Name Role Phone Newton Mendiola MD Primary Care Provider [phone] Sly Cade MD Unavailable [phone] Reason for Referral * Consultation (Routine) - Pending Review Specialty Diagnoses / Procedures Referred By Nino fletcher Referred To Contact Physical Therapy Diagnoses Neck pain Newton Mendiola MD [address] [facility] [address] [place] [address] Phone: tel: fax: External Order Referral ID Status Reason Start Date Expiration Date Visits Requested Visits Authorized [id number] Pending Review Specialty Services Required 12/10/2023 01/08/2025 24 24 Question Answer PTRFR PT Evaluate and Treat Therapy options discussed with patient? Yes Location provided for therapy services is: Patient requested/Patient preferred Please select the performing region: External Order [171] # of visits: 24 Encounter Details Date Type Department Care Team (Late st Contact Info) Description 12/10/2023 Orders Only [facility] [address] [facility] [address] [facility] [place] [address] Yudelka Daugherty MA [address] [place] [address] Neck pain (Primary Dx) Social History Tobacco Use Types [...] and Family Not on file 2021 Attends Bahai Services Not on file 01/16 Active Member [...] place to sleep or slept in a chcf (including now)? 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 Gender Identity Not on file Sexual Orientation Not on file documented as of this encounter Plan of Treatment Scheduled Procedures Name Priority Associated Diagnoses Date/Ti me ESOPHAGOGASTRODUODENOSCOPY Nausea Colon cancer screening COLONOSCOPY Nausea Colon cancer screening Scheduled Referrals Name Type Priority Associated Diagnoses Order Schedule Ambulatory referral order to Physical Therapy - Outpatient Referral Routine Neck pain Expected: 12/24/2023 (Approximate), Expires: 12/09/2024 documented as of this encounter Visit Diagnoses Diagnosis Neck pain- Primary Cervicalgia documented in this encounter Care Teams Roof Foreman Relationship Specialty Start Date End Date Newton Mendiola MD [address] [place] [address] PCP - General 06/09/16 Sly Cade MD [address] [facility] [address] [place] [address] Referring Physician Cardiology 12/07/18 documented as of this encounter
--- OUTSIDE RECORDS SUMMARY | 2024-03-18 04:58 | XMS_ITS | Encounter Summary ---
Author Organization [facility] Address [address] [place] [address] Phone Care Team Providers Care Manipulative Therapy Specialist Name Role Phone Nweton Mendiola MD Primary Care Provider Sly Cade MD Unavailable [phone] Reason for Referral * Cardiology (Routine) - Closed Specialty Diagnoses / Procedures Referred By Nino fletcher Referred To Contact Diagnoses Ischemic cardiomyopathy SOB (shortness of breath) Procedures ECG 12 lead Roxanne Downey NP [address] [place] [address] Phone: tel: fax: [facility] (All Locations) Referral ID Status Reason Start Date Expiration Date Visits Re quested Visits Authorized [id number] Closed 12/08/2022 01/07/2024 1 1 Encounter Details Date Type Department Care Team (Late st Contact Info) Description 12/08/2022 9:30 AM CDT Office Visit [facility] Cardiology [facility] Medical Office Building [address] [place] [address] Roxanne Downey NP [address] [place] [address] Ischemic cardiomyopathy (Primary Dx); SOB (shortness of breath) Social History Tobacco Use Types Packs/Day Years [...] and Family Not on file 2021 Attends Muslim Services Not on file 01/16 Active Member [...] place to sleep or slept in a retirement (including now)? 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 Gender Identity Not on file Sexual Orientation Not on file documented as of this encounter Last Filed Vital Signs Vital Sign Reading Time Taken Comments Blood Pressure 116/68 12/08/2022 9:28 AM CDT Pulse 82 12/08/2022 9:28 AM CDT Temperature - - Respiratory Rate - - Oxygen Saturation 98% 12/08/2022 9:28 AM CDT Inhaled Oxygen Concentration - - Weight 79.4 kg (175 lb) 12/08/2022 9:28 AM CDT Height 162.6 cm (5' 4 ) 12/08/2022 9:28 AM CDT Body Mass Index 30.04 12/08/2022 9:28 AM CDT documented in this encounter Ordered Prescriptions Prescription Sig Dispense Quantity Refills Last Filled Start Date End Date losartan (COZAAR) 50 mg tablet Take 1 tablet (50 mg total) by mouth daily 90 tablet 3 12/08/2022 documented in this encounter Progress Notes * Roxanne Downey, BRIT - 12/08/2022 9:30 AM CDT Images from the original note were not included. CARDIOLOGY RETURN OFFICE VISIT Primary care Physician Newton Mendiola MD [facility] [place] [address] [address] Patient Name: Katy Sauceda Date of : 1965 Date of Visit: 12/08/2022 PRINCIPAL AND SECONDARY DIAGNOSES: NICM LBBB during pre-op EKG years ago , then Dx with NICM in 2017 on incidental TTE with [facility] 07/2016 demonstrating no angiographically significant CAD TTE 12/29/18 = LVEDD 4.3 cm with LVEF 41% & global hypokinesis CMR 02/01 = LVEF 44%, no delayed contrast enhancement to suggest infiltrative cardiomyopathy TTE 12/2020 = Mildly reduced LV function LVEF 55%, hyperdynamic RV function TTE 09/2022 = LVEF 47%, normal RV function, no significant valvular abnormalities 2. Long RP tachycardia 05/20/20 on Kardia = likely atrial tachycardia 3. History of Hodgkins (around 1992) treated with chest XRT 4. Pre-diabetes 5. Medication Intolerance a. Abdominal pain with Metformin 11/2020 6. SARS-CoV-15 December 2020 (not hospitalized but course complicated by thrombus in the descending aorta & emboli to spleen; treated with 3+ months of apixiban with resolution of thrombus on CT 05/2021) Katy Sauceda is a 57 y.o. female who presents today at the [facility] in [place] for follow-up on the above mentioned cardiovascular history. Her energy systems engineer is Dr. Remy. During her office visit in August she reported exertional dyspnea. She was initiated on Ozempic with 16lb weight loss. She underwent echocardiogram which demonstrated decline in LVEF to 47% (mpoalymyee66% on TTE 11/2020) with mild MR, AI, GIDD. Losartan was discontinued and she was started on mid dose Entresto. In early October she reported palpitations, fatigue, headache, and dizziness. 3 day MCT predominant sinus rhythm with <1% PAC/PVC burden, no arrhythmias. Symptoms of chest pain, dyspnea,fluttering, and fatigue correlated with NSR or sinus tachycardia. She continued to experience palpitations and fatigue. Ozempic was discontinued and Entresto was cut in half. She presents today with her . She has been off Ozempic for approximately 5 weeks. She started reduced dose Entresto last Thursday. Symptoms of palpitations, fatigue, headache, and dizziness improved following dose reduction of Entresto. Her blood pressure is well-controlled which is consistentwith home readings. She denies chest pain, pressure, or discomfort, exertional dyspnea, near-syncope, or syncope, lower extremity edema, orthopnea, or PND. LABORATORY/DIAGNOSTICS: Lipids 11/22/2020 = TC 232, HDL 31, LDL 166, TG 176 Lipids 05/2022 = TC 130, TG 205, HDL 25, LDL 64 TSH 2.33 05/2022 BMP 09/2022 = K 3.9, Cr 0.87 CURRENT MEDICATIONS: Current Outpatient Medications: aspirin 81 mg tablet atorvastatin (LIPITOR) 40 mg tablet buPROPion XL (WELLBUTRIN XL) 300 mg 24 hr tablet cetirizine (ZyrTEC) 10 mg tablet cyanocobalamin, vitamin B-12, (VITAMIN B-12 ORAL) divalproex DR (DEPAKOTE) 125 mg EC tablet ergocalciferol (VITAMIN D) 50,000 unit capsule Farxiga 10 mg tablet isosorbide mononitrate ER (IMDUR) 30 mg 24 hr tablet metoprolol XL (TOPROL-XL) 100 mg 24 hr tablet ondansetron (ZOFRAN) [address] (PROTONIX) 40 mg EC tablet spironolactone (ALDACTONE) 25 mg tablet valACYclovir (VALTREX) 1 gram tablet losartan (COZAAR) 50 mg tablet semaglutide (Ozempic) 0.25 mg or 0.5 mg (2 mg/3 mL) pen injector injection Current Facility-Administered Medications: perflutren protein-a (OPTISON) 3 mL in sodium chloride 0.9% 8 mL syringe, 1-8 mL, intravenous, Oncein imaging PHYSICAL EXAMINATION: Vitals: 12/08/22 0928 BP: 116/68 BP Location: Left arm Patient Position: Sitting Pulse: 82 SpO2: 98% Weight: 79.4 kg (175 lb) Height: 162.6 cm (5' 4 ) Body mass index is 30.04 kg/m??. General: Alert and oriented, well-nourished, in no acute distress. HEENT: Mucous membranes are moist. Sclerae white. No thyromegaly or lymphadenopathy. Lungs: Normal effort and respiratory rate. Lungs clear to auscultation bilaterally. Heart: Normal rate, regular rhythm. No murmurs, rubs, or gallops. Abdomen: Soft, non-tender, and non-distended. No hepatosplenomegaly. Neurologic/Psych: Alert and oriented x4. Calm and appropriate affect. Grossly normal bilateral motor function and sensation. Vascular: Extremities warm and well-perfused. All pulses intact. No edema. No carotid bruit. No JVD. Skin: No cyanosis, pallor, clubbing, or rashes. CARDIAC STUDIES: EKG 12/29/2018 = NSR 83, normal axis, left bundle branch block, A1c 11/22/20: 6.2% TTE 03/02/2020 = LVEDD 5.1 cm, LVEF 46% with dyschronous septum, imparied relaxation, no significant valvular abnormalitites & no major change from 2019 TTE 12/10/2020 = mildly reduced LVEF 51% with no appreciable changes from 02/2020, paradoxical septal motion, pseudo normal TTE 09/2022 = LA is normal. Normal RV cavity size and function. LV cavity size is mildly dilated. Concentric LV remodeling and mild LVD; EF=47%-abnormal septal motion. PASP=21+RAP. Normal Inferior vena cava. Normal aorta. Since 12/2020, EF has further declined from 55% to 47% MCT 10/2022 = Rhythm Summary: Mean heart rate: 89 Pauses >= 3 seconds: 0 Tachycardia avg rate: 107 Tachycardia longest duration: 00:41:12 Tachycardia longest episode: 10/31/2022 23:18:00 Tachycardia shortest duration: 00:00:04 Tachycardia shortest episode: 11/01/2022 00:00:00 Cardiologis Review of Transmissions: Baseline rhythm is sinus: NSR, and sinus tachycardia seen. IVCD noted. Occasional first degree AV block. <1% VPDs; < 1% APDs. Correlation between symptoms (including chest pain, shortness of breath, fluttering, and tiredness) and rhythm listed below. Madeleine capture during palpitations 05/20/20 IMPRESSION AND PLAN: 1. Nonischemic cardiomyopathy 2. Hypertension 3. Hyperlipidemia 4. Atrial tachycardia 5. Diabetes mellitus type 2 Reported fatigue, palpitations, dizziness, and headaches following initiation of Ozempic and Entresto. Ozempic was initially held and after 1 month she did not observe improvement of symptoms. Symptomatic improvement with dose reduction of Entresto. Plan to discontinue Entresto and resume prior dosing of losartan 50 mg daily. Continue to hold Ozempic for 2 weeks. If she continues to feel well off Entresto, resume Ozempic at that time and closely follow symptoms. Recent MCT demonstrated predominant NSR with no arrhythmias, less than 1% PAC/PVC burden. She is euvolemic reporting NYHA class I symptoms. Continue metoprolol succinate, farxiga, aldactone. We will plan to see her back in 3 months, however we would be happy to see her sooner if needed. Roxanne Downey, SHRAVANP-C 12/08/2022 CC: Newton Mendiola MD [address] [address] This note was dictated with voice-recognition software, solar electric installer errors may be present. Cosigned by Matt Remy MD at 12/08/2022 3:55 PM CDT documented in this encounter Plan of Treatment Scheduled Procedures Name Priority Associated Diagnoses Date/Ti me ESOPHAGOGASTRODUODENOSCOPY Nausea Colon cancer screening COLONOSCOPY Nausea Colon cancer screening documented as of this encounter Procedures Procedure Name Priority Date/Time Associated Diagnosis Comments ECG 12-LEAD Routine 12/08/2022 Ischemic cardiomyopathy SOB (shortness of breath) documented in this encounter Results * ECG 12 lead (12/08/2022) Roxanne Downey ENT CONSULTANT ECG ORDERABLES Edited Result - Final documented in this encounter Visit Diagnoses Diagnosis Ischemic cardiomyopathy- Primary Other specified forms of chronic ischemic heart disease SOB (shortness of breath) Shortness of breath documented in this encounter Discontinued Medications Medication Sig Discontinue Reason Start Date End Da te cholecalciferol (VITAMIN D-3) 50,000 unit capsule Take 1 capsule (50,000 Units total) by mouth once a week Duplicate order 12/08/2022 azithromycin (ZITHROMAX) 250 mg tabletIndications:Strep tococcus pharyngitis Take 2 tablets the first day, then 1 tablet daily for 4 days Patient Discharge 06/21/2022 12/08/2022 fluticasone propionate (FLONASE) 50 mcg/actuation nasal spray Administer 1 spray into each nostril daily Patient Discharge 12/08/2022 sacubitriL-valsartan (ENTRESTO) 49-51 mg tabletIndications:chron ic heart failure Take 1 tablet by mouth 2 (two) times a day Side effects 09/30/2022 12/08/2022 documented as of this encounter Care Teams Manipulative Therapy Specialist Relationship Specialty Start Date End Date Newton Mendiola MD [address] [address] PCP - General 06/09/16 Sly Cade MD [address] [address] Referring Physician Cardiology 12/07/18 documented as of this encounter
--- OUTSIDE RECORDS SUMMARY | 2024-03-18 04:58 | XMS_ITS | Encounter Summary ---
Author Organization [facility] Address [address] [place] [address] Care Team Providers Care Instructor Adjunct Surgical Technician Name Role Phone Newton Mendiola MD Primary Care Provider [phone] Sly Cade MD Unavailable [phone] Encounter Details Date Type Department Care Team (Late st Contact Info) Description 12/10/2023 [facility] [address] [facility] [address] [place] [address] Yudelka Daugherty, MA [address] [place] [address] Social History Tobacco Use Types Packs/Day Years [...] place to sleep or slept in a longterm (including now)? 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 PT documented in this encounter Plan of Treatment Scheduled Procedures Name Priority Associated Diagnoses Date/Ti me ESOPHAGOGASTRODUODENOSCOPY Nausea Colon cancer screening COLONOSCOPY Nausea Colon cancer screening documented as of this encounter Visit Diagnoses Not on filedocumented in this encounter Care Teams Instructor Adjunct Surgical Technician Relationship Specialty Start Date End Date Newton Mendiola MD [address] [employer] [address] [address] PCP - General 06/09/16 Sly Cade MD [address] [employer] [address] [address] Referring Physician Cardiology 12/07/18 documented as of this encounter
--- OUTSIDE RECORDS SUMMARY | 2024-03-18 04:58 | XMS_ITS | Encounter Summary ---
Author Organization [facility] Address [address] [place] [address] Care Team Providers Care Wood Carver Hand Name Role Phone Newton Mendiola MD Primary Care Provider [phone] Sly Cade MD Unavailable [phone] Reason for Visit * Reason Comments Cold Symptoms Patient stated she w as here a few weeks ago and was given ABX for sinus infection. She states she completed the ABX but isn't feeling any better. Encounter Details Date Type Department Care Team (Late st Contact Info) Description 12/17/2023 2:15 PM CDT Office Visit [facility] [address] [place] [address] Faith Burroughs, BRIT [address] [facility] [place] [address] Acute middle ear effusion, right (Primary Dx) Social History Tobacco Use Types [...] and Family Not on file 2021 Attends Catholic Services Not on file 01/16 Active Member [...] place to sleep or slept in a alf (including now)? 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 * Fluid In The Ear (Serous Otitis Media) (General Information) (Tajik) documented in this encounter Ordered Prescriptions Prescription Sig Dispense Quantity Refills Last Filled Start Date End Date fluticasone propionate (FLONASE) 50 mcg/actuation nasal sprayIndications:A cute middle ear effusion, right Administer 2 sprays into each nostril daily 3 each 12/17/2023 methylPREDNISolone (Medrol, Andres,) 4 mg DosepackIndication s:Acute middle ear effusion, right follow package directions 1 packet 12/17/2023 documented in this encounter Progress Notes * Faith Burroughs NP - 12/17/2023 2:15 PM CDT Images from the original note were not included. Subjective/Objective Patient ID: Katy Sauceda is a 58 y.o. female. Chief Complaint Cold Symptoms (Patient stated she was here a few weeks ago and was given ABX for sinus infection. She states she completed the ABX but isn't feeling any better. ) Patient presents to convenient care for right ear pain and pressure. This has been an ongoing issuefor over the past month. She was seen in clinic on 12/03/2023 and at that time was prescribed doxycycline for a sinus infection. She states that she finish entire course of antibiotics without relief. She has been taking OTC Zyrtec for her symptoms. She denies any ear drainage or fevers. Review of Systems All systems reviewed [...] Ear canal and external ear normal. Nose: No congestion or rhinorrhea. Right Sinus: No maxillary sinus tenderness or frontal sinus tenderness. Left Sinus: No maxillary sinus tenderness or frontal sinus tenderness. Mouth/Throat: Lips: [place]. Mouth: Mucous membranes are moist. Pharynx: Oropharynx [...] Thought content normal. Judgment: Judgment normal. Vitals: 12/17/23 1423 BP: 122/80 Pulse: 69 Resp: 16 Temp: 37 ??C (98.6 ??F) TempSrc: Oral SpO2: 98% Weight: 79.4 kg (175 lb) Height: 162.6 cm (5' 4 ) Assessment/Plan Diagnoses and all orders for this visit: Acute middle ear effusion, right (Primary) - methylPREDNISolone (Medrol, Andres,) 4 mg Dosepack; follow package directions - fluticasone propionate (FLONASE) 50 mcg/actuation nasal spray; Administer 2 sprays into each nostril daily --Medrol Dosepak prescribed for ear effusion. No signs of bacterial infection on exam today. --continue with Zyrtec daily. Advised patient to start Flonase daily as well. --Tylenol/Motrin as needed for pain --Return to clinic or follow up with PCP [...] of this encounter Visit Diagnoses Diagnosis Acute middle ear effusion, right- Primary documented in this encounter Care Teams Wood Carver Hand Relationship Specialty Start Date End Date Newton Mendiola MD [address] [address] PCP - General 06/09/16 Sly Cade MD [address] [address] Referring Physician Cardiology 12/07/18 documented as of this encounter
--- OUTSIDE RECORDS SUMMARY | 2024-03-18 04:58 | XMS_ITS | Encounter Summary ---
Author Organization [facility] Address [address] [place] [id number] Care Team Providers Care Theology Teacher Name Role Phone Newton Mendiola MD Primary Care Provider [phone] Sly Cade MD Unavailable [phone] Reason for Referral * Diagnostic Imaging (Routine) - Closed Specialty Diagnoses / Procedures Referred By Contac t Referred To Contact Diagnoses Foot injury, left, initial encounter Procedures XR Foot Left 3+ Vw Parul oGmez PA [address] [place] [address] Phone: tel: fax: [facility] Referral ID Status Reason Start Date Expiration Date Visits Re quested Visits Authorized [id number] Closed 12/25/2022 01/24/2024 1 1 Reason for Visit * Reason Comments Foot Injury L footOnset last nig ht. She states that she dropped a bottle on the top of her foot.C/o bruising, swelling and pain (rate level pain 1/10). Flares up the more she is on it and then the pain score is around 8/10. Self medicating w/ nothing. Encounter Details Date Type Department Care Team (Late st Contact Info) Description 12/25/2022 12:15 PM CDT Office Visit [facility] at [address] [phone] Parul Gomez PA [address] [place] [address] [address] [place] [address] Foot injury, left, initial encounter (Primary Dx) Social History Tobacco Use Types Packs/Day Years Used Date Smoking Tobacco: Former Cigarettes 0.5 10 1 990 - 1999 Smokeless Tobacco: Never Tobacco Cessation:Counseling Given: Not Answered Alcohol Use Standard Drinks/Week Comments No 0 (1 standard drink = 0.6 oz pur e alcohol) Social Connection and Isolation Panel [NHANES] A nswer Date Recorded Frequency of Communication with Friends and Fami ly Not on file 2021 Frequency of Social Gatherings with Friends and Family Not on file 2021 Attends Quaker Services Not on file 01/16 Active Member [...] on file 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 Gender Identity Not on file Sexual Orientation Not on file documented as of this encounter Last Filed Vital Signs Vital Sign Reading Time Taken Comments Blood Pressure 114/76 12/25/2022 11:58 AM CDT Pulse 86 12/25/2022 11:58 AM CDT Temperature - - Respiratory Rate 16 12/25/2022 11:58 AM CDT Oxygen Saturation 98% 12/25/2022 11:58 AM CDT Inhaled Oxygen Concentration - - Weight 80.7 kg (178 lb) 12/25/2022 11:58 AM CDT Height 162.6 cm (5' 4 ) 12/25/2022 11:58 AM CDT Body Mass Index 30.55 12/25/2022 11:58 AM CDT documented in this encounter Progress Notes * Parul Gomez PA - 12/25/2022 12:15 PM CDT Images from the original note were not included. Subjective/Objective Patient ID: Katy Sauceda is a 57 y.o. female. Chief Complaint Foot Injury (L foot/Onset last night. She states that she dropped a bottle on the top of her foot./C/o bruising, swelling and pain (rate level pain 1/10). Flares up the more she is on it and then thepain score is around 8/10. /Self medicating w/ nothing. ) Pt presents w/ L foot pain s/p injury last night. States she dropped a glass bottle of sauce last night and it landed on the top of her foot. Currently has mild pain to the top of her foot. Pain is worse after walking on it for a while. Reports swelling and bruising to the top of the foot. Review of Systems All systems reviewed and are negative or non contributory for this patient's presentation today other than as stated in the HPI . Physical Exam Constitutional: General: She is not in acute distress. HENT: Head: Normocephalic and atraumatic. Mouth/Throat: Pharynx: Oropharynx is clear. Eyes: Pupils: Pupils are equal, round, and reactive to light. Cardiovascular: Rate and Rhythm: Normal rate. Pulmonary: Effort: Pulmonary effort is normal. Musculoskeletal: General: Normal range of motion. Cervical back: Normal range of motion. Comments: L dorsal foot w/ soft tissue swelling, no deformity or ecchymosis, normal ROM, ttp over dorsal foot, dp/pt pulses 2+, cap refill brisk, sensation intact Skin: General: Skin is warm and dry. Neurological: General: No focal deficit present. Mental Status: She is alert and oriented to person, place, and time. Psychiatric: Mood and Affect: Mood normal. Behavior: Behavior normal. Vitals: 12/25/22 1158 BP: 114/76 BP Location: Right arm Patient Position: Sitting Pulse: 86 Resp: 16 SpO2: 98% Weight: 80.7 kg (178 lb) Height: 162.6 cm (5' 4 ) XR Foot Left 3+ Vw EXAM DESCRIPTION: XR FOOT LEFT 3 OR MORE VIEWS REASON FOR STUDY: injury Pt complains of right dorsal foot pain after dropping a bottle on her foot last night. No prior surgery to the foot. TECHNIQUE: Three views left foot. COMPARISON: None. No acute fracture or dislocation. No erosion or aggressive osseous lesion. Achilles and plantar calcaneal spurs are seen. FINDINGS: BONES/JOINTS: There is no acute fracture, malalignment or osseous abnormality. The joint spaces are normal. SOFT TISSUES: There is soft tissue swelling over the dorsum of the foot. IMPRESSION: Soft tissue swelling with no acute osseous abnormality. THIS IS AN ELECTRONICALLY VERIFIED FINAL REPORT 12/25/2022 12:48 PM - Electronically signed by Arcenio Bell M.D. T: Report ID: [id number] Reading Location: [place] [address] Assessment/Plan -L foot contusion -neurovascularly intact -xray neg as noted above -joe wrap applied, RICE -states she cannot take tylenol or nsaids due to medication interactions Diagnoses and all orders for this visit: Foot injury, left, initial encounter (Primary) - XR Foot Left 3+ Vw; Future No results found for this or any previous visit (from the past 4 hour(s)). Disposition Treatment plan including expectations, follow up, and return precautions discussed with patient/parent, verbalizes understanding. Medication dosage, use, and potential adverse reactions discussed with patient/parent. Advised to follow up with PCP if symptoms do not resolve as expected or sooner if condition worsens. Signs/symptoms warranting ER evaluation reviewed. Patient and/or guardian was given an opportunity to ask questions, questions answered. ROBERT Gomez 12/25/22 12:59 PM Cosigned by Soy Mckinnon MD at 12/25/2022 2:12 PM CDT documented in this encounter Plan of Treatment Scheduled Procedures Name Priority Associated Diagnoses Date/Ti me ESOPHAGOGASTRODUODENOSCOPY Nausea Colon cancer screening COLONOSCOPY Nausea Colon cancer screening documented as of this encounter Results * XR Foot Left 3+ Vw (12/25/2022 12:14 PM CDT) Anatomical Region Laterality Modality Lower Extremities, Foot Left Digital Radiography 12/25/2022 12:4 6 PM CDT Narrative 12/25/2022 12:48 PM CDT EXAM DESCRIPTION: XR FOOT LEFT 3 OR MORE VIEWS REASON FOR STUDY: injury ?? Pt complains of right dorsal foot pain after dropping a bottle on her foot last night. No prior surgery to the foot. ? TECHNIQUE: Three views left foot. COMPARISON: None. ??No acute fracture or dislocation. ??No erosion or aggressive osseous lesion. ??Achilles and plantar calcaneal spurs are seen. FINDINGS: BONES/JOINTS: There is no acute fracture, malalignment or osseous abnormality. The joint spaces are normal. SOFT TISSUES: There is soft tissue swelling over the dorsum of the foot. ?? IMPRESSION: Soft tissue swelling with no acute osseous abnormality. THIS IS AN ELECTRONICALLY VERIFIED FINAL REPORT 12/25/2022 12:48 PM - Electronically signed by ??Arcenio Bell M.D. D: ??12/25/2022 12:47 PM T: Report ID: [id number] Reading Location: ??[id number] Procedure Note Arcenio Bell Jr., MD - 12/25/2022 EXAM DESCRIPTION: XR FOOT LEFT 3 OR MORE VIEWS REASON FOR STUDY: injury Pt complains of right dorsal foot pain after dropping a bottle on her foot last night. No prior surgery to the foot. TECHNIQUE: Three views left foot. COMPARISON: None. No acute fracture or dislocation. No erosion oraggressive osseous lesion. Achilles and plantar calcaneal spurs are seen. FINDINGS: BONES/JOINTS: There is no acute fracture, malalignment orosseous abnormality. The joint spaces are normal. SOFT TISSUES: There is soft tissue swelling over the dorsum of the foot. IMPRESSION: Soft tissue swelling with no acute osseous abnormality. THIS IS AN ELECTRONICALLY VERIFIED FINAL REPORT 12/25/2022 12:48 PM - Electronically signed by Arcenio Bell M.D. T: Report ID: [id number] Reading Location: [id number] Parul JONES IMG XR PROCEDURES Final Result documented in this encounter Visit Diagnoses Diagnosis Foot injury, left, initial encounter- Primary Foot injury, left, initial encounter documented in this encounter Care Teams Theology Teacher Relationship Specialty Start Date End Date Newton Mendiola MD [address] [address] PCP - General 06/09/16 Sly Cade MD [address] [place] [address] [place] [address] Referring Physician Cardiology 12/07/18 documented as of this encounter
--- OUTSIDE RECORDS SUMMARY | 2024-03-18 04:58 | XMS_ITS | Encounter Summary ---
Author Organization [facility] Address [address] [place] [address] Phone Care Team Providers Care It Account Manager Name Role Phone Newton Mendiola MD Primary Care Provider [phone] Sly Cade MD Unavailable [phone] Reason for Referral * Cardiology (Routine) - Closed Specialty Diagnoses / Procedures Referred By Nino fletcher Referred To Contact Diagnoses Chronic systolic heart failure (CMS/HCC) (HCC) Procedures Transthoracic Echo (TTE) Complete W Doppler/CF Zarina Shirley NP Phone: tel: fax: [facility] (All Locations) Referral ID Status Reason Start Date Expiration Date Visits Re quested Visits Authorized [id number] Closed 03/04/2023 04/02/2024 1 1 ER CUTTER HAND Encounter Details Date Type Department Care Team (Late st Contact Info) Description 03/04/2023 11:15 AM BINDER CUTTER HAND Office Visit [facility] Cardiology [facility] Medical Office Building [address] [place] [address] Zarina Shirley NP [address] [address] Chronic systolic heart failure (CMS/HCC) (HCC) (Primary Dx) Social History Tobacco Use Types [...] and Family Not on file 2021 Attends Rastafari Services Not on file 01/16 Active Member [...] on file Legal 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 Gender Identity Not on file Sexual Orientation Not on file documented as of this encounter Last Filed Vital Signs Vital Sign Reading Time Taken Comments Blood Pressure 110/58 03/04/2023 11:06 AM BINDER CUTTER HAND Pulse 87 03/04/2023 11:06 AM BINDER CUTTER HAND Temperature - - Respiratory Rate - - Oxygen Saturation 99% 03/04/2023 11: 06 AM BINDER CUTTER HAND Inhaled Oxygen Concentration - - Weight 75.7 kg (166 lb 12.8 oz) 023 11:06 AM BINDER CUTTER HAND Height 162.6 cm (5' 4 ) 03/04/2023 11:0 6 AM BINDER CUTTER HAND Body Mass Index 28.63 03/04/2023 11:06 AM BINDER CUTTER HAND documented in this encounter Patient Instructions * Patient Instructions* Zarina Shirley NP - 03/04/2023 11:15 AM BINDER CUTTER HAND Medication Changes: Stop imdur Testing: TTE next visit Follow up: Additional items: If you have questions or concerns please call [phone] ER CUTTER [facility] ER C[facility]TER [facility] documented in this encounter Progress Notes * Zarina Shirley NP - 03/04/2023 11:15 AM CST Images from the original note were not included. CARDIOLOGY RETURN OFFICE VISIT Primary care Physician Newton Mendiola MD [facility] [address] [address] Patient Name: Katy Sauceda Date of : 1965 Date of Visit: 03/04/2023 PRINCIPAL AND SECONDARY DIAGNOSES: NICM LBBB during pre-op EKG years ago , then Dx with NICM in 2017 on incidental TTE with [facility] 07/2016 demonstrating no angiographically significant CAD [...] on CT 05/2021) Katy Sauceda is a 58 y.o. female who presents today at the [facility] in [place] for follow-up on the above mentioned cardiovascular history. Her deicer tester is Dr. Remy. During her office visit in November,she was struggling with side effects from her entresto despitedose reduction. She noted palpitations, dizziness and fatigue. At that point, she was placed back on losartan and has done well. Her dizziness is gone. She continues to have occasional palpitations and some dyspnea with exertion. Overall, her arrhythmia burden is reduced. She denies chest pain, pressure, or discomfort, near-syncope, or syncope, lower extremity edema, orthopnea, or PND. LABORATORY/DIAGNOSTICS: Lipids 11/22/2020 = TC 232, HDL 31, LDL 166, TG 176 Lipids 05/2022 = TC 130, TG 205, HDL 25, LDL 64 TSH 2.33 05/2022 BMP 09/2022 = K 3.9, Cr 0.87 CURRENT MEDICATIONS: Current Outpatient Medications: aspirin 81 mg tablet atorvastatin (LIPITOR) 40 mg tablet azithromycin (ZITHROMAX) 250 mg tablet buPROPion XL (WELLBUTRIN XL) 300 mg 24 hr tablet cetirizine (ZyrTEC) 10 mg tablet cyanocobalamin, vitamin B-12, (VITAMIN B-12 ORAL) dapagliflozin propanediol (Farxiga) [address] (DEPAKOTE) 125 mg EC tablet ergocalciferol (VITAMIN D) 50,000 unit capsule isosorbide mononitrate ER (IMDUR) 30 mg 24 hr tablet losartan (COZAAR) 50 mg tablet metoprolol XL (TOPROL-XL) 100 mg 24 hr tablet ondansetron (ZOFRAN) [address] (PROTONIX) 40 mg EC tablet semaglutide (OZEMPIC) 1 mg/dose (4 mg/3 mL) pen injector injection spironolactone (ALDACTONE) 25 mg tablet valACYclovir (VALTREX) 1 gram tablet Current Facility-Administered Medications: perflutren protein-a (OPTISON) 3 mL in sodium chloride 0.9% 8 mL syringe, 1-8 mL, intravenous, Oncein imaging PHYSICAL EXAMINATION: Vitals: 03/04/23 1106 BP: 110/58 BP Location: Right arm Patient Position: Sitting Pulse: 87 SpO2: 99% Weight: 75.7 kg (166 lb 12.8 oz) Height: 162.6 cm (5' 4 ) Body mass index is 28.63 kg/m??. General: Alert and oriented, well-nourished, in [...] & no major change from 2018 TTE 12/10/2020 = mildly reduced LVEF 51% [...] palpitations 05/20/20 IMPRESSION AND PLAN: 1. Nonischemic cardiomyopathy. Continue losartan 50 mg po every day (intolerant to Entresto), metoprolol 100 mg po every day, farxiga 10 mg po every day, aldactone 25 mg daily. Euvolemic on exam withNYHA Class II symptoms. Stop isosorbide. GDMT is at maximally tolerated doses. 2. Hypertension. Controlled on current regimen. 3. Hyperlipidemia. Continue atorvastatin. Lipid panel 05/2022 TC 130, TG 205, HDL 25, LDL 64. 4. Atrial tachycardia. Continue metoprolol, contact us if palpitations reoccur. We will plan to see her back in six months with a repeat TTE. ER CUTTER HAND documented in this encounter Plan of Treatment [...] test: 07/07/2023 Type of test: TTE w/Doppler [facility] #: 0 Date of : 1965 (F) Fuel Distribution System Operator: SON Arteaga Referring Physician: ZARINA SHIRLEY MD Contrast Agent: 0.4 ml Optison Administered, (2.6 ml wasted). Contrast Administered by: Norris Swift RN Supervised/Interpreted by: Matt Remy MD Diagnosis: Location: [facility] Reason for test: Chronic systolic heart failure [...] 2=Hypo 3=Akinetic 4=Dyskin./Aneurysm 0=Not visualized) Parasternal Long [place]:MAS=1 BAS=1 MIL=1 KAYLEY=1 Parasternal Short [place]:MAS=1 MIS=1 MN=1 MIL=1 MAL=1 MA=1 Apical 4 Chambers:=1 MIS=1 BIS=1 BAL=1 MAL=1 AL=1 AC=1 Apical 2 Chambers:AI=1 MN=1 BI=1 BA=1 MA=1 AA=1 AC=1 LV Global [...] MD By signing this report, the attending deicer tester certifies that he or she has personally supervised and interpreted the echocardiogram and has reviewed and or edited and agrees with the written comments contained within the report. Procedure Note Matt Remy MD - 07/07/2023 Patient name: Katy Sauceda Date of test: 07/07/2023 Type of test: TTE w/Doppler [facility] #: 0 Date of : 1965 (F) Fuel Distribution System Operator: SON Arteaga Referring Physician: ZARINA SHIRLEY MD Contrast Agent: 0.4 ml Optison Administered, (2.6 ml wasted). Contrast Administered by: Norris Swift RN Supervised/Interpreted by: Matt Remy MD Diagnosis: Location: [facility] Reason for test: Chronic systolic heart failure [...] 2=Hypo 3=Akinetic 4=Dyskin./Aneurysm 0=Not visualized) Parasternal Long [place]:MAS=1 BAS=1 MIL=1 KAYLEY=1 Parasternal Short [place]:MAS=1 MIS=1 MN=1 MIL=1 MAL=1 MA=1 Apical 4 Chambers:=1 MIS=1 BIS=1 BAL=1 MAL=1 AL=1 AC=1 Apical 2 Chambers:AI=1 MN=1 BI=1 BA=1 MA=1 AA=1 AC=1 LV Global [...] MD By signing this report, the attending deicer tester certifies that he or she has personally supervised and interpreted the echocardiogram and has reviewed and or edited and agrees with the written comments contained within the report. Zarina Shirley AUTOMOTIVE ACCESSORY INSTALLER CV ECHO PROCEDURES Final Re sult documented in this encounter Visit Diagnoses Diagnosis Chronic systolic heart failure (CMS/HCC) (HCC)- Primary Chronic systolic heart failure Chronic systolic heart failure (CMS/HCC) (HCC) Chronic systolic heart failure documented in this encounter Care Teams It Account Manager Relationship Specialty Start Date End Date Newton Mendiola MD [address] [facility] [address] [place] [address] PCP - General 06/09/16 Sly Cade MD [address] [facility] [address] [place] [address] Referring Physician Cardiology 12/07/18 documented as of this encounter
--- OUTSIDE RECORDS SUMMARY | 2024-03-18 04:58 | XMS_ITS | Encounter Summary ---
Author Organization [facility] Address [address] [place] [address] Care Team Providers Care Dispatcher Service Chief Name Role Phone Newton Mendiola MD Primary Care Provider [phone] Sly Cade MD Unavailable [phone] Encounter Details Date Type Department Care Team (Late st Contact Info) Description 09/21/[address] 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 Recommend repeat thyroid ultrasound in 2 years. documented in this encounter Plan of Treatment Scheduled Procedures Name Priority Associated Diagnoses Date/Ti me ESOPHAGOGASTRODUODENOSCOPY Nausea Colon cancer screening COLONOSCOPY Nausea Colon cancer screening documented as of this encounter Visit Diagnoses Not on filedocumented in this encounter Care Teams Dispatcher Service Chief Relationship Specialty Start Date End Date Newton Mendiola MD [address] [address] PCP - General 06/09/16 Sly Cade MD [address] [address] Referring Physician Cardiology 12/07/18 documented as of this encounter
--- OUTSIDE RECORDS SUMMARY | 2024-03-18 04:58 | XMS_ITS ---
Author Organization [facility] Address [address] [place] [address] Care Team Providers Care Electronic Device Repairer Name Role Phone Newton Mendiola MD Primary Care Provider [phone] Sly Cade MD Unavailable [phone] Active Problems Problem Noted Date Diagnosed Date [...] complication, without long-term current use of insulin ([facility]) 11/22/2020 Assessment & Plan (12/09/2023 2:47 PM [...] body mass index 30 or greater 07/31 Current Oncology Plans No current plan information found. Past Plans No past plan information found. Radiation Treatments * No radiation treatments are documented for this patient in Epic. Treatments may have been administered in another system. Lifetime Dose Tracking * Chemical Lifetime Dose Automatic Entry Manual Entr y Fluoro Time 3.6 minutes 3.6 minutes 0 minutes Air kerma at the reference point (Ka,r) 118.5 mGy 1 18.5 mGy 0 mGy DLP 5,039 mGycm 5,039 mGycm 0 mGycm Resolved Problems Problem Noted Date Diagnosed Date Resolved Date Laceration of right rob brewer, initial encounter 10/10/2021 08/28/2023 Overview (10/10/2021): Added automatically from request for surgery [id number] Abdominal pain 08/27/2021 08/28/2023 Assessment & Plan [...] infarct vs growth. Patient was ransferred to [facility] ED for further management by Vascular [...] Eliquis Lesion of right ear 11/22/2020 08/28/19 Assessment & Plan (11/22/2020 12:13 PM CDT): [...] 07/21/2016 11/22/2020 Dyspnea on exertion 07/21/2016 11/23/19 Left bundle branch block 07/17/201611/2020 Abdominal pain, left lower quadrant 03/07/2011 11/22/2020
--- OUTSIDE RECORDS SUMMARY | 2024-03-18 04:58 | XMS_ITS | Encounter Summary ---
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 Role Phone Newton Mendiola MD Primary Care Provider [phone] Sly Cade MD Unavailable [phone] Reason for Referral * Diagnostic Imaging (Routine) - Authorized Specialty Diagnoses / Procedures Referred By Contac t Referred To Contact Diagnoses Visit for screening mammogram Procedures Screening Mammogram Bilateral W Newton Ordoñez MD [address], [place] [address] Phone: tel: fax: External Order Referral ID Status Reason Start Date Expiration Date V isits Requested Visits Authorized [id number] Authorized 12/09/2023 01/07/2025 1 1 Reason for Visit * Reason Comments Hypertension Hyperlipidemia GERD Encounter Details Date Type Department Care Team (Late st Contact Info) Description 12/09/2023 2:00 PM CDT Office Visit [facility] [address] [place] [address] Newton Mendiola MD [address] [facility] [address] [address] [place] [address] Type 2 diabetes mellitus without complication, without long-term current use of insulin (CMS/HCC) (HCC) (Primary Dx); Visit for screening mammogram; Thyroid nodule; Cardiomyopathy, unspecified type (HCC); Primary hypertension; Mixed hyperlipidemia; Night sweats; Neck pain Social History Tobacco Use Types Packs/Day Years [...] and Family Not on file 2021 Attends [employer] Services Not on file 01/16 Active Member [...] on file 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 Subjective/Objective Patient ID: Katy Sauceda is a 58 y.o. female. Chief Complaint Hypertension, Hyperlipidemia, and GERD Hypertension Pertinent negatives include no chest pain, headaches, palpitations or shortness of breath. Hyperlipidemia Pertinent negatives include no chest pain or shortness of breath. GERD She reports no abdominal pain, no chest pain, no coughing, no nausea, no sore throat or no wheezing. Pertinent negatives include no fatigue. Patient here for evaluation of her medical problems Hodgkins disease distant, doing well HLIP, on statin HTN, on medication DM, A1c is 6.3% Past Surgical History: Procedure Laterality Date CHOLECYSTECTOMY COLONOSCOPY CYST REMOVAL hodgkins biopsy OTHER SURGICAL HISTORY vocal cord nodule removal PORT PLACEMENT CHEST >5 YEARS 1992 ROTATOR CUFF REPAIR 2009 THYROID SURGERY 2004 Family History Problem Relation Age of Onset Hypertension Mother Hyperlipidemia Mother Hypertension Father Hyperlipidemia Father Diabetes Father Immunization History Administered Date(s) Administered Influenza, Trivalent, IM (MDV) 01/10/2014 Tdap 04/25/2023 Current Outpatient Medications Medication Sig aspirin 81 mg tablet Take 1 tablet (81 mg total) by mouth daily atorvastatin (LIPITOR) 40 mg tablet Take 1 tablet (40 mg total) by mouth nightly buPROPion XL (WELLBUTRIN XL) 300 mg 24 hr tablet TAKE 1 TABLET (300 MG TOTAL) BY MOUTH EVERY MORNING. cetirizine (ZyrTEC) 10 mg tablet Take 1 tablet (10 mg total) by mouth daily cyanocobalamin, vitamin B-12, (VITAMIN B-12 ORAL) Take by mouth daily divalproex DR (DEPAKOTE) 125 mg EC tablet Take 1 tablet (125 mg total) by mouth 2 (two) times a day doxycycline monohydrate (MONODOX) 100 mg capsule Take 1 capsule (100 mg total) by mouth 2 (two) times a day for 7 days ergocalciferol (VITAMIN D) 50,000 unit capsule TAKE 1 CAPSULE (50,000 UNITS TOTAL) BY MOUTH ONCE A WEEK FRIDAYS Farxiga 10 mg tablet TAKE 1 TABLET BY MOUTH EVERY DAY losartan (COZAAR) 50 mg tablet Take 1 tablet (50 mg total) by mouth daily metoprolol XL (TOPROL-XL) 100 mg 24 hr tablet TAKE 1 TABLET BY MOUTH EVERY DAY ondansetron (ZOFRAN) 4 mg tablet Take 1 tablet (4 mg total) by mouth every 8 (eight) hours as needed for nausea or vomiting pantoprazole DR (PROTONIX) 40 mg EC tablet TAKE 1 TABLET BY MOUTH EVERY DAY spironolactone (ALDACTONE) 25 mg tablet TAKE 1 TABLET BY MOUTH EVERY DAY valACYclovir (VALTREX) 1 gram tablet TAKE 2 TABLETS BY MOUTH EVERY 12 HOURS FOR 1 DAY Review of Systems Constitutional: Negative for appetite change, fatigue, fever and unexpected weight change. HENT: Negative for ear pain, hearing loss and sore throat. Eyes: Negative for visual disturbance. Respiratory: Negative for cough, shortness of breath and wheezing. Cardiovascular: Negative for chest pain, palpitations and leg swelling. Gastrointestinal: Negative for abdominal pain, anal bleeding, blood in stool, constipation, diarrhea, nausea and vomiting. Endocrine: Negative for cold intolerance, heat intolerance, polydipsia, polyphagia and polyuria. Genitourinary: Negative for dysuria and hematuria. Musculoskeletal: Negative for arthralgias, back pain and joint swelling. Skin: Negative for rash. Neurological: Negative for dizziness, weakness and headaches. Hematological: Negative for adenopathy. Does not bruise/bleed easily. Psychiatric/Behavioral: Negative for dysphoric mood. The patient is not nervous/anxious. Breast: Negative for tenderness and lump(s). Patient Vital Signs for the past 24 hrs: BP Pulse Height Weight 12/09/23 1359 143/83 92 162.6 cm (5' 4 ) 79.4 kg (175 lb) Wt Readings from Last 3 Encounters: 12/09/23 79.4 kg (175 lb) 12/03/23 80.7 kg (178 lb) 08/28/23 82.1 kg (181 lb) Physical Exam Vitals and nursing note reviewed. Constitutional: General: She is not in acute distress. Appearance: Normal appearance. She is normal weight. HENT: Head: Normocephalic and atraumatic. Right Ear: Tympanic membrane normal. Left Ear: Tympanic membrane normal. Nose: Nose normal. No congestion. Mouth/Throat: Mouth: Mucous membranes are moist. Pharynx: Oropharynx is clear. No oropharyngeal exudate. Eyes: General: No scleral icterus. Extraocular Movements: Extraocular movements intact. Conjunctiva/sclera: Conjunctivae normal. Pupils: Pupils are equal, round, and reactive to light. Cardiovascular: Rate and Rhythm: Normal rate and regular rhythm. Pulses: Normal pulses. Heart sounds: Normal heart sounds. No murmur heard. No gallop. Pulmonary: Effort: Pulmonary effort is normal. Breath sounds: Normal breath sounds. No wheezing, rhonchi or rales. Abdominal: General: Abdomen is flat. Bowel sounds are normal. Palpations: Abdomen is soft. There is no mass. Tenderness: There is no abdominal tenderness. There is no guarding. Hernia: No hernia is present. Musculoskeletal: General: No swelling, tenderness or deformity. Normal range of motion. Cervical back: No rigidity. Right lower leg: No edema. Left lower leg: No edema. Lymphadenopathy: Cervical: No cervical adenopathy. Skin: General: Skin is warm and dry. Capillary Refill: Capillary refill takes less than 2 seconds. Findings: No rash. Neurological: General: No focal deficit present. Mental Status: She is alert and oriented to person, place, and time. Mental status is at baseline. Cranial Nerves: No cranial nerve deficit. Motor: No weakness. Deep Tendon Reflexes: Reflexes normal. Psychiatric: Mood and Affect: Mood normal. Thought Content: Thought content normal. Assessment/Plan Diagnoses and all orders for this visit: Type 2 diabetes mellitus without complication, without long-term current use of insulin (CMS/HCC) (HCC) (E11.9) (Primary) Assessment & Plan: A1c improved. Orders: - POCT hemoglobin A1c Visit for screening mammogram (Z12.31) - Screening Mammogram Bilateral W John; Future Thyroid nodule (E04.1) Assessment & Plan: Last ultrasound showed no change. Follow-up ultrasound in 2 years in 2025 Cardiomyopathy, unspecified type (HCC) (I42.9) Assessment & Plan: Doing well follows with Cardiology Primary hypertension (I10) Assessment & Plan: BP at target Mixed hyperlipidemia (E78.2) Assessment & Plan: Stable. On lipid lowering medication Night sweats (R61) Assessment & Plan: Check chest x-ray. Neck pain (M54.2) Assessment & Plan: Check x-ray. Labs Lab Results Component Value Date HGBA1C 6.3 12/09/2023 Lab Results Component Value Date POCCHOL 130 05/16/2022 Lab Results Component Value Date POCHDL 37 08/28/2023 POCHDL 25 05/16/2022 POCHDL 30 08/27/2021 Lab Results Component Value Date POCLDL 90 08/28/2023 POCLDL 64 05/16/2022 POCLDL 68 08/27/2021 Lab Results Component Value Date POCTRIG 103 08/28/2023 POCTRIG 205 05/16/2022 POCTRIG 130 08/27/2021 No results found for: A1C Lab Results Component Value Date CREATININE 0.82 08/28/2023 CREATININE 0.87 10/13/2022 CREATININE 0.87 05/16/2022 Lab Results Component Value Date COLORU Yellow 08/28/2023 CLARITYU Turbid (A) 01/10/2021 GLUCOSEUR 3+ (A) 08/28/2023 BILIRUBINUR Negative 01/10/2021 KETONESU Negative 08/28/2023 SPECGRAVU 1.029 01/10/2021 BLOODUR Trace (A) 01/10/2021 UROBILINOGEN <2.0 01/10/2021 Newton Mendiola MD documented in this encounter Miscellaneous Notes * Assessment & Plan Note - Newton Mendiola MD - 12/09/2023 2:47 PM CDT Associated Problem(s): Type 2 diabetes mellitus without complication, without long-term current useof insulin (CMS/HCC) (HCC) A1c improved. * Assessment & Plan Note - Newton Mendiola MD - 12/09/2023 2:47 PM CDT Associated Problem(s): Thyroid nodule Last ultrasound showed no change. Follow-up ultrasound in 2 years in 2025 * Assessment & Plan Note - Newton Mendiola MD - 12/09/2023 2:47 PM CDT Associated Problem(s): Cardiomyopathy (HCC) Doing well follows with Cardiology * Assessment & Plan Note - Newton Mendiola MD - 12/09/2023 2:47 PM CDT Associated Problem(s): Hypertension BP at target * Assessment & Plan Note - Newton Mendiola MD - 12/09/2023 2:47 PM CDT Associated Problem(s): Mixed hyperlipidemia Stable. On lipid lowering medication * Assessment & Plan Note - Newton Mendiola MD - 12/09/2023 2:47 PM CDT Associated Problem(s): Night sweats Check chest x-ray. * Assessment & Plan Note - Newton Mendiola MD - 12/09/2023 2:47 PM CDT Associated Problem(s): Neck pain Check x-ray. documented in this encounter Plan of Treatment Scheduled Orders Name Type Priority Associated Diagnoses Orde r Schedule Screening Mammogram Bilateral W John Imaging Schedule Routine, Read Routine (OP Routine) Visit for screening mammogram Expected: 12/09/2023, Expires: 02/07/2025 Scheduled Procedures Name Priority Associated Diagnoses Date/Ti me ESOPHAGOGASTRODUODENOSCOPY Nausea Colon cancer screening COLONOSCOPY Nausea Colon cancer screening documented as of this encounter Procedures Procedure Name Priority Date/Time Associated Diagnosis Comments POCT HEMOGLOBIN A1C Routine 12/09/2023 2 :02 PM CDT Type 2 diabetes mellitus without complication, without long-term current use of insulin ([facility]) (HCC) documented in this encounter Results * XR Spine Cervical Complete 4 Or [...] it. Electronically signed by: Jean Skaggs D.O. us Newton Mendiola MD IMG XR PROCEDURES Final Resul t * XR Chest PA Lateral 2 Views [...] it. Electronically signed by: Sly Correa M.D. us Newton Mendiola MD IMG XR PROCEDURES Final Resul t * (ABNORMAL) POCT hemoglobin A1c (12/09/2023 2:02 PM CDT) Hemoglobin A1C, POC 6.3 4.0 - 5.6 % Blood 12/09/2023 2:02 PM CDT us Newton Mendiola MD POINT OF CARE TEST ORDERABLES Final Result documented in this encounter Visit Diagnoses Diagnosis Type 2 diabetes mellitus without complication, without long-term current use of insulin ([facility]) ([facility])- Primary Visit for screening mammogram Thyroid nodule Nontoxic uninodular goiter Cardiomyopathy, unspecified type ([facility]) Primary hypertension Unspecified essential hypertension Mixed hyperlipidemia Night sweats Generalized hyperhidrosis Neck pain Cervicalgia Night sweats Generalized hyperhidrosis Neck pain Cervicalgia documented in this encounter Discontinued Medications Medication Sig Discontinue Reason Start Date End Da te semaglutide 0.25 mg or 0.5 mg (2 mg/3 mL) pen injector injectionIndications:Wt Loss Mgmt, Pt with BMI 27-29 & Wt-Related Comorbidity Inject 0.5 mg under the skin every 7 days Therapy completed 11/02/2023 12/09/2023 documented as of this encounter Care Teams 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
--- OUTSIDE RECORDS SUMMARY | 2024-03-18 04:58 | XMS_ITS | Encounter Summary ---
Author Organization [facility] Address [address] [place] [address] Phone Care Team Providers Care Relocation Services Specialist Name Role Phone Newton Mendiola MD Primary Care Provider [phone] Sly Cade MD Unavailable [phone] Reason for Visit * Cardiology (Routine) - Closed Specialty Diagnoses / Procedures Referred By Contac t Referred To Contact Diagnoses Palpitations Procedures MCT Mobile Cardiac Telemetry Event Monitor [place] XTRNL PT ACTIVTD ECG DWNLD W/R&I </30 DAYS Roxanne Downey NP [address] [place] [address] Phone: tel: fax: [facility] Referral ID Status Reason Start Date Expiration Date Visits Re quested Visits Authorized [id number] Closed 10/20/2022 11/19/2023 1 1 Encounter Details Date Type Department Care Team (Late st Contact Info) Description 10/21/2022 8:00 AM CDT Ancillary Procedure [facility] [address] [place] [address] Palpitations Social History Tobacco Use Types Packs/Day Years [...] and Family Not on file 2021 Attends Worship Services Not on file 01/16 Active Member [...] on file 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 Gender Identity Not on file Sexual Orientation Not on file documented as of this encounter Plan of Treatment Scheduled Procedures Name Priority Associated Diagnoses Date/Ti me ESOPHAGOGASTRODUODENOSCOPY Nausea Colon cancer screening COLONOSCOPY Nausea Colon cancer screening documented as of this encounter Procedures Procedure Name Priority Date/Time Associated Diagnosis Comments MCT - MOBILE CARDIAC TELEMETRY EVENT MONITOR Routine 10/21/2022 10:13 AM CDT Palpitations documented in this encounter Results * MCT Mobile Cardiac Telemetry Event Monitor (10/21/2022 10:13 AM CDT) Anatomical Region Laterality Modality Electrocardiogra phy 10/21/2022 8:00 AM CDT Narrative 11/07/2022 4:41 PM CDT Patient name: Katy Sauceda Date of test: 10/21/2022 Type of Test: Event Monitor ([facility]) Hospital #: 0 ?Location: [facility] : 1965 ??Age: 57 ??Sex: F Ref Physician(s): ROXANNE DOWNEY MD Interpreted by: Gabriela Orellana MD [employer] Tech: [employer] Monitoring Service Diagnosis: Monitoring Service: [employer] Reason for Test: R00.2: Palpitations Monitor Used: [facility] (MCT) ??mail out Enrollment Period: Oct 27 - Nov 02, 2022 [employer] Tech comments: Patient Instructions: Patient support person included in instructions Number of Transmissions Sent During Enrollment Period: 11 To obtain transmission tracing contact: [facility] ??[phone] Rhythm Summary: Mean heart rate: 89 Pauses [...] fluttering, and tiredness) and rhythm listed below. This study was interpreted by Gabriela Orellana MD Confirmed on ??11/07/2022 - 16:41:38 by Gabriela Orellana MD Summary of Transmitted Events: # ??Date ? Time ?HR ?Symptoms/Rhythm ? 11 11/02/22 15:05 ?? 96.0 ?Flutter or Skipped Beats ? Sinus Rhythm w/IVCD ? 10 11/02/22 13:01 ?? 99.0 ?Chest Pain or Pressure; Shortness Sinus Rhythm w/1st Degree AV Block/IVCD ? 9 ??11/02/22 10:46 ?? 96.0 ?None Reported ? Sinus Rhythm w/IVCD ? 8 ??11/01/22 00:40 ?? 103.0 ?? Chest Pain or Pressure ? Sinus Tachycardia w/IVCD ? 7 ??10/31/22 15:30 ?? 104.0 ?? Tired or Fatigued ? Sinus Tachycardia w/IVCD ? 6 ??10/31/22 01:18 ?? 85.0 ?Chest Pain or Pressure ? Sinus Rhythm w/IVCD ? 5 ??10/30/22 21:11 ?? 84.0 ?Flutter or Skipped Beats ? Sinus Rhythm w/IVCD ? 4 ??10/30/22 02:01 ?? 87.0 ?Rapid or Fast Heartbeat ? Sinus Rhythm w/IVCD ? 3 ??10/29/22 23:24 ?? 88.0 ?Chest Pain or Pressure ? Sinus Rhythm w/IVCD ? 2 ??10/28/22 12:21 ?? 88.0 ?Rapid or Fast Heartbeat; Flutter oSinus Rhythm w/IVCD ? 1 ??10/27/22 19:20 ?? 87.5 ?Baseline Auto Trigger ? Sinus Rhythm ? I have personally reviewed and interpreted this study. Procedure Note Gabriela Orellana MD - 11/07/2022 Patient name: Katy Sauceda Date of test: 10/21/2022 Type of Test: Event Monitor ([facility]) Hospital #: 0 Location: [facility] : 1965 Age: 57 Sex: F Ref Physician(s): ROXANNE DOWNEY MD Interpreted by: Gabriela Orellana MD [facility] Tech: [employer] Monitoring Service Diagnosis: Monitoring Service: [employer] Reason for Test: R00.2: Palpitations Monitor Used: [facility] (MCT) mail out Enrollment Period: Oct 27 - Nov 02, 2022 [employer] comments: Patient Instructions: Patient support person included in instructions Number of Transmissions Sent During Enrollment Period: 11 To obtain transmission tracing contact: [facility] [phone] Rhythm Summary: Mean heart rate: 89 Pauses [...] fluttering, and tiredness) and rhythm listed below. This study was interpreted by Gabriela Orellana MD Confirmed on 11/07/2022 - 16:41:38 by Gabriela Orellana MD Summary of Transmitted Events: # Date Time HR Symptoms/Rhythm 11 11/02/22 15:05 96.0 Flutter or Skipped Beats Sinus Rhythm w/IVCD 10 11/02/22 13:01 99.0 Chest Pain or Pressure; Shortness Sinus Rhythm w/1st Degree AV Block/IVCD 9 11/02/22 10:46 96.0 None Reported Sinus Rhythm w/IVCD 8 11/01/22 00:40 103.0 Chest Pain or Pressure Sinus Tachycardia w/IVCD 7 10/31/22 15:30 104.0 Tired or Fatigued Sinus Tachycardia w/IVCD 6 10/31/22 01:18 85.0 Chest Pain or Pressure Sinus Rhythm w/IVCD 5 10/30/22 21:11 84.0 Flutter or Skipped Beats Sinus Rhythm w/IVCD 4 10/30/22 02:01 87.0 Rapid or Fast Heartbeat Sinus Rhythm w/IVCD 3 10/29/22 23:24 88.0 Chest Pain or Pressure Sinus Rhythm w/IVCD 2 10/28/22 12:21 88.0 Rapid or Fast Heartbeat; Flutter oSinus Rhythm w/IVCD 1 10/27/22 19:20 87.5 Baseline Auto Trigger Sinus Rhythm I have personally reviewed and interpreted this study. Result [facility] Roxanne Downey NP CV CARDIAC SERVI JESUS ALBERTO PROCEDURES Final Result documented in this encounter Visit Diagnoses Diagnosis Palpitations documented in this encounter Care Teams Relocation Services Specialist Relationship Specialty Start Date End Date Newton Mendiola MD [address] [address] PCP - General 06/09/16 Sly Cade MD [address] [place] [address] Referring Physician Cardiology 12/07/18 documented as of this encounter
--- OUTSIDE RECORDS SUMMARY | 2024-03-18 04:58 | XMS_ITS | Encounter Summary ---
Author Organization [facility] Address [address] [place] [address] Care Team Providers Care Engine Test Cell Technician Name Role Phone Newton Mendiola MD Primary Care Provider [phone] Sly Cade MD Unavailable [phone] Reason for Visit * Diagnostic Imaging (Routine) - Closed Specialty Diagnoses / Procedures Referred By Contac t Referred To Contact Diagnoses Foot injury, left, initial encounter Procedures XR Foot Left 3+ Vw Parul Gomez PA [address] [place] [address] Phone: tel: fax: [facility] Referral ID Status Reason Start Date Expiration Date Visits Re quested Visits Authorized [id number] Closed 12/25/2022 01/24/2024 1 1 Encounter Details Date Type Department Care Team (Latest Contact Info) Description 12/25/2022 12:10 PM CDT Ancillary Procedure [facility] Imaging at [address] [id number] Foot injury, left, initial encounter Social History Tobacco Use Types Packs/Day Years [...] and Family Not on file 2021 Attends [employer]ism Services Not on file 01/16 Active Member [...] place to sleep or slept in a assisted (including now)? 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 Gender Identity Not on file Sexual Orientation Not on file documented as of this encounter Plan of Treatment Scheduled Procedures Name Priority Associated Diagnoses Date/Ti me ESOPHAGOGASTRODUODENOSCOPY Nausea Colon cancer screening COLONOSCOPY Nausea Colon cancer screening documented as of this encounter Procedures Procedure Name Priority Date/Time Associated Diagnosis Comments XR FOOT LEFT 3 OR MORE VIEWS Schedule CLAYTON, Read CLAYTON (Appt Today, Awaiting Results) 12/25/2022 12:14 PM CDT Foot injury, left, initial encounter documented in this encounter Results * XR Foot Left [...] D: ??12/25/2022 12:47 PM T: Report ID: [id number] Reading Location: ??[id number] Procedure Note Arcenio Bell Jr., MD - [...] by Arcenio Bell M.D. T: Report ID: [id number] Reading Location: [place] [address] Parul JONES IMG XR PROCEDURES Final Result documented in this encounter Visit Diagnoses Diagnosis Foot injury, left, initial encounter documented in this encounter Care Teams Engine Test Cell Technician Relationship Specialty Start Date End Date Newton Mendiola MD [address] [address] PCP - General 06/09/16 Sly Cade MD [address] [address] Referring Physician Cardiology 12/07/18 documented as of this encounter
--- OUTSIDE RECORDS SUMMARY | 2024-03-18 04:59 | XMS_ITS | Encounter Summary ---
Author Organization [facility] Address [address] [place] [address] Phone Care Team Providers Care Access Coordinator Name Role Phone Newton Mendiola MD Primary Care Provider [phone] Sly Cade MD Unavailable [phone] Reason for Visit * Reason Comments OT Treatment * Consultation (Routine) - Closed Specialty Diagnoses / Procedures Referred By Nino fletcher Referred To Contact Occupational Therapy Diagnoses Laceration of right little finger without foreign body without damage to nail, initial encounter Tacho Sanchez MD Phone: tel: fax: [facility] (All Locations) Referral ID Status Reason Start Date Expiration Date V isits Requested Visits Authorized [id number] Closed Specialty Services Required 10/11/2021 11/10/2022 24 24 Encounter Details Date Type Department Care Team (Late st Contact Info) Description 11/19/2021 11:30 AM CDT Therapy [facility] Occupational Therapy [address] [facility] 6th [place] [address] [place] [id number] Parul Gottlieb OT [address] [address] Laceration of right little finger without foreign body without damage to nail, subsequent encounter (Primary Dx) Social History Tobacco Use [...] on file 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 Gender Identity Not on file Sexual Orientation Not on file documented as of this encounter Progress Notes * Gottlieb Parul, OT - 11/19/2021 11:30 AM CDT [facility] Occupational Therapy Treatment Note Katy Sauceda 1965 Diagnosis: R SF FDP laceration s/p primary repair Date of onset: 09/21/21 Cause of injury: cutting vegetables Date of surgery: 10/14/21 Surgery details: Primary FDP repair- 4 strand Next MD Appointment: 11/19/21 Updated Order Diagnosis: R SF FDP laceration delayed primary repair (Zone II) Date of onset: 09/21/21 Surgery: 10/14/21 FDP repair Frequency/Duration: 1-2x per week (as needed) for up to 3 months Next MD Visit: 6 weeks OT/PT Evaluate and Treat: Edema mgmt PROM flexion- concentrate on DIP joint D/C orthosis- advised to wear in car for next week Work on synergistic wrist AROM Proceed per therapist discretion Orthosis Specifications: D/C orthosis Purpose of orthosis: To support affected structures Restrictions: tendon Subjective: Patient is excited that she can wean from her splint. She is making progress with her scar tissue, and is using dycem regularly. The tip still doesn't really move, but the doctor said its intact, sothat's good [x] Mental health status discussed Optimistic Pain: 2/10 without any pain meds. Objective: CIRC- P1- 6.2 PIP- 5.8 P2- 5.5 cm. Right small finger: PROM: Mp: 0/85 Pip: 0/85 Dip: 0/40 AROM: Mp: 0/70 Pip: -5/70 Dip: 0/0 Hook: pip: 70 Dip: 0 Treatment provided: - Scar mobilization to palm and small finger scar sites - PROM - small finger composite flexion with emphasis on dip flexion - synergistic wrist motion (tenodesis): 5 repetitions with continued cueing for 5 second hold each repetition. - Instructed patient to wear small finger dip dorsal blocking splint during arom exercises to initiate dip flexion - Progressed home exercise program to include 20 repetitions of each of the following exercises performed hourly: hook fist, straight fist, composite fist - Place and holds for dip flexion during composite fist to facilitate improved active fdp pull through - Reviewed precautions and provided handout to reinforce precautions: continue to avoid combined digit and wrist extension, wear splint during dynamic activities for the next week, and avoid heavy gripping or use of hand. Reinforced that patient is now able to incorporate her right hand into light d aily tasks but avoid gripping such as opening a jar or turning a door Assessment: Josefina is optimistic about her recovery and happy she can discharge the splint. She is aware of her precautions and wean from splint, avoiding heavy hand use and composite wrist and digit extension stretching. She will trial wearing her digit dorsal block during AROM exercises to see if starting from a slightly flexed position encouraged more motion. Also discussed the role of place and holds for dip flexion in composite flexion exercises. Plan: Therapy 2x weekly. Anticipate decrease to 1x weekly in 1-2 weeks Goals: Goal Status / Date Updated Due by: STG1 Verbalize understanding of pre- cautions for flexor tendon New 10/16/2021 ongoing STG2 Increase PROM to DPC all right digits Met 11/19/2021 met 11/13/21 STG3 Active right SF active PIP joint extension -5 or less Met 11/19/2021 Met 11/19/21 LTG1 Pt will report readiness for discharge to HEP, gradual return to more strenuous activities with 0/10 pain and verbalize understanding of any remaining precautions Ongoing 11/19/2021 12/16/21 Start time: 1035 End Time: 1115 Parul MATHEWS/Rikki, CHT Cosigned by Spencer Tolbert OT at 11/19/2021 4:04 PM CDT documented in this encounter Plan of Treatment Scheduled Procedures Name Priority Associated Diagnoses Date/Ti me ESOPHAGOGASTRODUODENOSCOPY Nausea Colon cancer screening COLONOSCOPY Nausea Colon cancer screening documented as of this encounter Visit Diagnoses Diagnosis Laceration of right little finger without foreign body without damage to nail, subsequent encounter- Primary documented in this encounter Orders Outpatient Referral Count Last Ordered Date Fir st Ordered Date AMB REFERRAL ORDER TO OCCUPATIONAL THERAPY 1 11/19/2021 documented in this encounter Care Teams Access Coordinator Relationship Specialty Start Date End Date Newton Mendiola MD [address] [address] PCP - General 06/09/16 Sly Cade MD [address] [address] Referring Physician Cardiology 12/07/18 documented as of this encounter
--- OUTSIDE RECORDS SUMMARY | 2024-03-18 04:59 | XMS_ITS | Encounter Summary ---
Author Organization [facility] Address [address] [place] [address] Phone Care Team Providers Care Information Security Manager Name Role Phone Newton Mendiola MD Primary Care Provider [phone] Sly Cade MD Unavailable [phone] Reason for Visit * Reason Comments OT Treatment * Consultation (Routine) - Closed Specialty Diagnoses / Procedures Referred By Nino fletcher Referred To Contact Occupational Therapy Diagnoses Laceration of right little finger without foreign body without damage to nail, initial encounter Tacho Sanchez MD Phone: tel: fax: [facility] (All Locations) Referral ID Status Reason Start Date Expiration Date V isits Requested Visits Authorized [id number] Closed Specialty Services Required 10/11/2021 11/10/2022 24 24 Encounter Details Date Type Department Care Team (Late st Contact Info) Description 10/22/2021 9:30 AM CDT Therapy [facility] Occupational Therapy [address] [facility] 6th [place] [address] [place] [id number] Cristal Stiles, OT [address] [address] Laceration of right little finger without foreign [...] and Family Not on file 2021 Attends [employer] Services Not on file 01/16 Active [...] place to sleep or slept in a detention (including now)? 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 Date of onset: 09/21/21 ?? Cause of injury: cutting vegetables ?? Date of surgery: 10/14/21 ?? Surgery details: Primary FDP repair- 4 strand ?? Next MD Appointment: 11/19/21?? Patient is 8 days postop today. She saw Dr. Sanchez this morning who is pleased with her progress. Subjective: Patient had mild swelling after last visit, but Katy reports that it improved afterapproximately 1 day and is better today than it has been since surgery. She has been consistent with home program exercises and compression sleeves for digits since previous visit. [x] Mental health status discussed Details: less frustration today Pain: 4/10 today with tylenol on board. Of note, patient cannot take ibuprofen or other pain medications. Objective: Circumference:- Right SF- P1- 7 PIP- 6.3 P2- 5.7 DIP- 5.1 Passive extension of right SF PIP joint -15 (10 degree improvement) Passive flexion: Mp: 60 Pip: 70 Dip: 40 After therapy: 1 cm passive small finger composite flexion from [facility] ?? Treatment provided: -edema management via retrograde massage and manual edema mobilization on foam wedge for elevation -PROM per precautions/protocol - isolated, individual joint flexion following by composite digit flexion small finger, 5-10 repetitions each; patient practiced technique to stretch dipj in greater flexion using orthosis barlow to support proximal digit -protected passive small finger pip extension (wrist and mp joints flexed) - patient better able totolerate stretch today -passive composite flexion index, middle, ring fingers to increase suppleness of unaffected digits -place and holds introduced today, to be completed 5 repetitions every 1-2 hours; handout provided including detailed instruction and patient practice for only a gentle contraction of digits -upgraded program to include gentle synergistic tenodesis - handout provided with precautions for gentle active contraction of digits (butterfly wings) along with slight wrist extension past neutral,followed by passive relaxing into wrist and digit flexion (no active contraction) - she will perform 5 repetitions, every 1-2 hours -fitted patient with new digit compression sleeve with precautions to remove if signs of impaired circulation -patient washes her hands under supervision in clinic following flexor precautions and letting mildsoap and water run over it. Educated patient regarding precautions including ensuring area is dry before donning splint, wearing splint during bathing, and not using well water Assessment: Patient demonstrates good improvement from last visit. Edema has decreased, and patient is able to achieve greater arc of passive digit flexion. Passive pip extension has increased 10 degrees from last visit. Patient seen today following appointment with Dr. Sanchez. Initiated place and holds as wellas tenodesis exercises with patient demonstrating technique independently following practice. Issued new digit compression sleeve for small finger to accommodate decreased edema. Plan: Patient will follow up in 1 week for suture removal; she will likely transition to therapy closer to her home after that visit Goals: Goal Status / Date Updated Due by: STG1 Verbalize understanding of pre- cautions for flexor tendon New 10/16/2021 ongoing STG2 Increase PROM to DPC all right digits Ongoing 10/22/2021 10/30/21 STG3 Active right SF active PIP joint extension -5 or less Ongoing 10/22/2021 10/30/21 ? LTG1 To be determined by primary therapist closer to home. Ongoing 10/22/2021 ?? LTG2 ? LTG3 ? Start time: 909 End Time: 1000 Parul Gottlieb OT Cosigned by Cristal Stiles OT at 10/22/2021 11:05 AM CDT documented in this encounter Plan of Treatment Scheduled Procedures Name Priority Associated Diagnoses Date/Ti me ESOPHAGOGASTRODUODENOSCOPY Nausea Colon cancer screening COLONOSCOPY Nausea Colon cancer screening documented as of this encounter Visit Diagnoses Diagnosis Laceration of right little finger without foreign body without damage to nail, subsequent encounter- Primary documented in this encounter Care Teams Information Security Manager Relationship Specialty Start Date End Date Newton Mendiola MD [address] [address] PCP - General 06/09/16 Sly Cade MD [address] [address] Referring Physician Cardiology 12/07/18 documented as of this encounter
--- OUTSIDE RECORDS SUMMARY | 2024-03-18 04:59 | XMS_ITS | Encounter Summary ---
Author Organization [facility] Address [address] [facility] [address] [place] [address] Care Team Providers Care Hand Clerical Verifier Name Role Phone Newton Mendiola MD Primary Care Provider [phone] Sly Cade MD Unavailable [phone] Reason for Visit * Reason Comments Sore Throat Sore throat, nasal c ongestion, patient did break out in a rash 2 days ago,+ exp to strep. Symptom onset 3 weeks ago. Patient has tried OTC Coricidin. 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 Gender Identity Not on file Sexual Orientation Not on file documented as of this encounter Last Filed Vital Signs Vital Sign Reading Time Taken Comments Blood Pressure 136/74 06/21/2022 7:59 AM CDT Pulse 83 06/21/2022 7:59 AM CDT Temperature 36.3 ??C (97.3 ??F) 06/21/2022 7:59 AM CD T Respiratory Rate 16 06/21/2022 7:59 AM CDT Oxygen Saturation 97% 06/21/2022 7:59 AM CDT Inhaled Oxygen Concentration - - Weight 86.6 kg (191 lb) 06/21/2022 7:59 AM CDT Height 162.6 cm (5' 4 ) 06/21/2022 7:59 AM CDT Body Mass Index 32.79 06/21/2022 7:59 AM CDT documented in this encounter Patient Instructions * Patient Instructions* Faith Burroughs NP - 06/21/2022 8:00 AM CDT Complete antibiotic as prescribed Tylenol or Motrin for fever/pain Stay hydrated- Drinking fluids is more important than eating Throat lozenges or sprays usually do not help. Follow up with your PCP if you are not getting better Go to ER if you develop: Trouble swallowing or breathing or if child can barely speak or cry Fever >104 Dehydration or decreased Urine Output, very dry mouth or no tears when crying You may return to work, daycare, or school 24 hours after starting antibiotics and you are fever free Do not share food, drinks, or utensils Replace your toothbrush within 24 hours after starting antibiotics and again after 3-4 days. I recommend washing your pillow cases and sheets after 24 hours Home Treatments: Warm fluids or chicken broth Ice cream, popsicles, slushes, sherbert Gargle w warm salt water Avoid spicy or citrus foods documented in this encounter Ordered Prescriptions Prescription Sig Dispense Quantity Refills Last Filled Start Date End Date azithromycin (ZITHROMAX) 250 mg tabletIndications: Streptococcus pharyngitis Take 2 tablets the first day, then 1 tablet daily for 4 days 6 tablet 06/21/2022 3 documented in this encounter Progress Notes * Faith Burroughs NP - 06/21/2022 8:00 AM CDT Images from the original note were not included. Subjective/Objective Patient ID: Katy Sauceda is a 57 y.o. female. Chief Complaint Sore Throat (Sore throat, nasal congestion, patient did break out in a rash 2 days ago,+ exp to strep. Symptom onset 3 weeks ago. Patient has tried OTC Coricidin.) Patient presents to convenient care for nasal congestion and sore throat x 3 weeks. She was exposedto her grandson who tested positive to strep approximately 1 month ago. She states that initially, her sore throat was constant but then seemed to resolve. However she notes that her lymph nodes havebeen swollen and she has been getting a rash on and off for the past 2 days on her neck. She does not have a rash today. She has been taking OTC Coricidin for her symptoms. She denies any fevers. Sore Throat Associated symptoms include congestion. Pertinent negatives include no coughing, diarrhea, ear discharge, ear pain, headaches, shortness of breath or vomiting. Review of Systems Constitutional: Negative for activity change, appetite change, fatigue and fever. HENT: Positive for congestion and sore throat. Negative for ear discharge, ear pain, postnasal drip, rhinorrhea and sinus pressure. Eyes: Negative for discharge. Respiratory: Negative for cough and shortness of breath. Gastrointestinal: Negative for diarrhea, nausea and vomiting. Musculoskeletal: Negative for myalgias. Skin: Positive for rash. Neurological: Negative for headaches. Hematological: Negative for adenopathy. Physical Exam Vitals reviewed. Constitutional: General: She is not in acute distress. Appearance: Normal appearance. She is well-developed. She is not ill-appearing. HENT: Head: Normocephalic. Right Ear: Tympanic membrane, ear canal and external ear normal. Left Ear: Tympanic membrane, ear canal and external ear normal. Nose: No congestion or rhinorrhea. Right Sinus: Maxillary sinus tenderness and frontal sinus tenderness present. Left Sinus: Maxillary sinus tenderness and frontal sinus tenderness present. Mouth/Throat: Lips: Hazen. Mouth: Mucous membranes are moist. Pharynx: Oropharynx is clear. Posterior oropharyngeal erythema present. Eyes: General: Right eye: No discharge. Left eye: No discharge. Conjunctiva/sclera: Conjunctivae normal. Cardiovascular: Rate and Rhythm: Normal rate and regular rhythm. Pulmonary: Effort: Pulmonary effort is normal. No respiratory distress. Breath sounds: Normal breath sounds and air entry. Abdominal: Tenderness: There is no abdominal tenderness. Musculoskeletal: General: Normal range of motion. Cervical back: Neck supple. Lymphadenopathy: Head: Right side of head: Tonsillar adenopathy present. Left side of head: Tonsillar adenopathy present. Cervical: No cervical adenopathy. Skin: General: Skin is warm and dry. Findings: No rash. Neurological: Mental Status: She is alert and oriented to person, place, and time. Mental status is at baseline. Psychiatric: Attention and Perception: Attention normal. Mood and Affect: Mood normal. Behavior: Behavior normal. Behavior is cooperative. Thought Content: Thought content normal. Judgment: Judgment normal. Vitals: 06/21/22 0759 BP: 136/74 BP Location: Right arm Patient Position: Sitting Pulse: 83 Resp: 16 Temp: 36.3 ??C (97.3 ??F) TempSrc: Tympanic SpO2: 97% Weight: 86.6 kg (191 lb) Height: 162.6 cm (5' 4 ) Assessment/Plan Rapid strep positive Azithromycin as prescribed Tylenol/Motrin as needed for pain Follow-up with PCP if symptoms persist after the completion of antibiotics or sooner if symptoms worse Diagnoses and all orders for this visit: Streptococcus pharyngitis (Primary) - azithromycin (ZITHROMAX) 250 mg tablet; Take 2 tablets the first day, then 1 tablet daily for 4 days Sore throat - POCT rapid strep A Recent Results (from the past 4 hour(s)) POCT rapid strep A Collection Time: 06/21/22 8:06 AM Result Value Ref Range Rapid Strep A, POC Positive (A) Negative Patient Education: Disposition Treatment plan including expectations, [...] Name Priority Date/Time Associated Diagnosis Comments POCT RAPID STREP Routine 06/21/2022 8:06 AM CDT Sore throat documented in this encounter Results * (ABNORMAL) POCT rapid strep A (06/21/2022 8:06 AM CDT) Rapid Strep A, POC Positive(A ) Negative Swab 06/21/2022 8:06 AM CDT Faith Burroughs TIPPLE GREASER POINT OF CARE TEST ORDERABLES Fi nal Result documented in this encounter Visit Diagnoses Diagnosis Streptococcus pharyngitis- Primary Sore throat Acute pharyngitis documented in this encounter Care Teams Hand Clerical Verifier Relationship Specialty Start Date End Date Newton Mendiola MD [address], [place] [address] PCP - General 06/09/16 Sly Cade MD [address] [facility] [address] [place] [address] Referring Physician Cardiology 12/07/18 documented as of this encounter
--- OUTSIDE RECORDS SUMMARY | 2024-03-18 04:59 | XMS_ITS | Encounter Summary ---
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 Gender Identity Not on file Sexual Orientation Not on file documented as of this encounter Plan of Treatment Scheduled Procedures Name Priority Associated Diagnoses Date/Ti me ESOPHAGOGASTRODUODENOSCOPY Nausea Colon cancer screening COLONOSCOPY Nausea Colon cancer screening documented as of this encounter Procedures Procedure Name Priority Date/Time Associated Diagnosis Comments INFLUENZA A/B, RSV, AND COVID-19 PCR Routine 10/11/2021 11:34 AM CDT Preoperative testing documented in this encounter Results * Influenza A/B, RSV, and COVID-19 PCR Nasopharyngeal (10/11/2021 11:34 AM CDT) COVID-19 RNA Negative Negative [facility] Influenza A RNA Negative Negative [facility] Influenza B RNA Negative Negative [facility] RSV RNA Negative Negative [facility] Comment: Interpretive data: This test is performed using the Doblet Xpert Xpress CoV-2/Flu/RSV plus assay. This is a multiplex, real-time reverse transcriptase PCR assay intended for the qualitative detection of nucleic acid from SARS-CoV-2, influenza A, influenza B, and respiratory syncytial virus. This assay has been reviewed by the FDA for Emergency Use Authorization (EUA). The performance characteristics have been verified by the performing laboratory. Results must be considered in the clinical context, and a negative result does not rule out infection. Interpretive Data last revised 2021. Nasopharyngeal 10/11/2021 11 :34 AM CDT 10/11/2021 4:51 PM CDT Narrative KEKE - 10/11/2021 5:55 PM CDT Is the Patient experiencing symptoms consistent with COVID?->No Reason for testing?->Urgent surgical procedure Tacho Sanchez MD LAB MICROBIOLOGY - GENERAL OR DERABLES Final Result Performing Organization Address City/State/[facility] Co de Phone Number [facility] [address] [address] Department [place] [address] documented in this encounter Visit Diagnoses Diagnosis Preoperative testing Unspecified pre-operative examination documented in this encounter Care Teams Asset Management Lead Relationship Specialty Start Date End Date Newton Mendiola MD [address] [address] PCP - General 06/09/16 Sly Cade MD [address] [address] Referring Physician Cardiology 12/07/18 documented as of this encounter
--- OUTSIDE RECORDS SUMMARY | 2024-03-18 04:59 | XMS_ITS | Encounter Summary ---
Author Organization [facility] Address [address] [place] [address] Phone Care Team Providers Care Java Programmer Analyst Name Role Phone Newton Mendiola MD Primary Care Provider [phone] Sly Cade MD Unavailable [phone] Reason for Visit * Reason Comments OT Treatment * Consultation (Routine) - Closed Specialty Diagnoses / Procedures Referred By Nino fletcher Referred To Contact Occupational Therapy Diagnoses Laceration of right little finger without foreign body without damage to nail, initial encounter Tacho Sanchez MD Phone: tel: fax: [facility] Occupational Therapy [address] [place] [address] 6[address] [place] [address] [place] [address] Phone: tel: fax: Referral ID Status Reason Start Date Expiration Date V isits Requested Visits Authorized [id number] Closed Specialty Services Required 11/19/2021 12/19/2022 24 24 Encounter Details Date Type Department Care Team (Late st Contact Info) Description 11/28/2021 2:00 PM CDT Therapy [facility] Occupational Therapy [address] [place] [address] 6th [place] [address] [place] [address] Chelsy Daugherty, OT [address] [address] Laceration of right little finger without foreign [...] and Family Not on file 2021 Attends [employer] Services Not on file 01/16 Active Member [...] place to sleep or slept in a correction (including now)? 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 Noticing swelling even down into the wrist. Not noticing any increase in tip motion. [x] Mental health status discussed Frustrated by swelling Pain: 0/10 without any pain meds.; with AROM- 3-4/10 Objective: Right DWC- 16.3 cm. (coban just removed) CIRC- P1- 6.1 PIP- 5.5 P2- 5.1 cm. After treatment- P1- 6.1 PIP-5.7 P2- 5.3 cm. (More distal edema). PROM: PIP- 83 DIP- 53 Flexion to DPC- 1.75 cm. AROM not tested this date. Treatment provided: - Scar mobilization to palm and small finger scar sites; attempted IASTM but unable to tolerate. However, easy tolerance for pen in webspace now. - PROM - small finger composite flexion with emphasis on dip flexion - Fabricated 6 sizes of marble and instructed in joint blocking, composite flexion and rolling in palm with different sizes to increase AROM. - Paraffin to right hand to decrease discomfort and increase extensibility of right digits. - Instruction to not try so hard. Questioning whether this is a contributing factor to her edema. Assessment: Urvashi stated that she finally believes she feels the right pull when pulling around the marbles and using it for joint blocking. She can visually see a wiggle. No real pull through but definitely intact tendon. Plan: Decrease to 1x weekly in 1-2 weeks Warm rice next visit, unweighted BTE and functional activities Goals: Goal Status / Date Updated Due by: STG1 Verbalize understanding of pre- cautions for flexor tendon New 10/16/2021 ongoing STG2 Increase PROM to DPC all right digits Met 11/28/2021 met 11/13/21 STG3 Active right SF active PIP joint extension -5 or less Met 11/28/2021 Met 11/19/21 LTG1 Pt will report readiness for discharge to [facility], gradual return to more strenuous activities with 0/10 pain and verbalize understanding of any remaining precautions Ongoing 11/28/2021 12/16/21 Start time: 1410 End Time: 1505 REID Dietz/Rikki, CHT documented in this encounter Plan of Treatment Scheduled Procedures Name Priority Associated Diagnoses Date/Ti me ESOPHAGOGASTRODUODENOSCOPY Nausea Colon cancer screening COLONOSCOPY Nausea Colon cancer screening documented as of this encounter Visit Diagnoses Diagnosis Laceration of right little finger without foreign body without damage to nail, subsequent encounter- Primary documented in this encounter Care Teams Java Programmer Analyst Relationship Specialty Start Date End Date Newton Mendiola MD [address] [email or web address] [address] [address] PCP - General 06/09/16 Sly Cade MD [email or web address] [address] [address] Referring Physician Cardiology 12/07/18 documented as of this encounter
--- OUTSIDE RECORDS SUMMARY | 2024-03-18 04:59 | XMS_ITS | Encounter Summary ---
Author Organization [facility] Address [address] [place] [address] Phone Care Team Providers Care Gizzard Puller Name Role Phone Newton Mendiola MD Primary Care Provider [phone] Sly Cade MD Unavailable [phone] Reason for Visit * Reason Comments OT Treatment * Consultation (Routine) - Closed Specialty Diagnoses / Procedures Referred By Nino fletcher Referred To Contact Occupational Therapy Diagnoses Laceration of right little finger without foreign body without damage to nail, initial encounter Tacho Sanchez MD Phone: tel: fax: [facility] Occupational Therapy [address] [place] [address] 6th [place] [address] [place] [address] Phone: tel: fax: Referral ID Status Reason Start Date Expiration Date V isits Requested Visits Authorized [id number] Closed Specialty Services Required 11/19/2021 12/19/2022 24 24 Encounter Details Date Type Department Care Team (Late st Contact Info) Description 11/21/2021 2:00 PM CDT Therapy [facility] Occupational Therapy [address] [place] [address] 6th [place] [address] [place] [address] Parul Gottlieb OT [address] [address] Laceration of right little finger without foreign [...] and Family Not on file 2021 Attends [employer] Services Not on file 01/16 Active Member [...] on file 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 Objective: CIRC- P1- 6.2 PIP- 5.8 P2- 5.5 cm. Right small finger: PROM: Mp: 0/85 Pip: 0/85 Dip: 0/40 AROM: Mp: 0/75 Pip: -5/75 Dip: 0/0 Hook: pip: 70 Dip: 0 Treatment provided: - Hot pack to prepare tissues for therapy - Scar mobilization to palm and small finger scar sites - PROM - small finger composite flexion with emphasis on dip flexion - AROM composite fist, hook fist, digit extension to neutral (wrist in neutral) x20 repetitions - Grasp and release of cotton balls Assessment: Katy has edema and soreness following weaning from her splint. She arrives frustrated, but demonstrates good within clinic improvement. Her active pip flexion has improved slightly (5 degrees) and she can feel her dip motion. Therapist visualizes active dip flexion today. By the end of the session, edema has decreased from when she arrived and she is motivated. Katy really enjoys cotton ball grasp activity. Plan: Therapy 2x weekly. Anticipate decrease to 1x weekly in 1-2 weeks Warm rice next visit, unweighted BTE and functional activities Goals: Goal Status / Date Updated Due by: STG1 Verbalize understanding of pre- cautions for flexor tendon New 10/16/2021 ongoing STG2 Increase PROM to DPC all right digits Met 11/21/2021 met 11/13/21 STG3 Active right SF active PIP joint extension -5 or less Met 11/21/2021 Met 11/19/21 LTG1 Pt will report readiness for discharge to [facility], gradual return to more strenuous activities with 0/10 pain and verbalize understanding of any remaining precautions Ongoing 11/21/2021 12/16/21 Start time: 1400 End Time: 1450 Parul Gottlieb OTR/L, CHT Cosigned by Chelsy Daugherty OT at 11/22/2021 3:16 PM CDT documented in this encounter Plan of Treatment Scheduled Procedures Name Priority Associated Diagnoses Date/Ti me ESOPHAGOGASTRODUODENOSCOPY Nausea Colon cancer screening COLONOSCOPY Nausea Colon cancer screening documented as of this encounter Visit Diagnoses Diagnosis Laceration of right little finger without foreign body without damage to nail, subsequent encounter- Primary documented in this encounter Care Teams Gizzard Puller Relationship Specialty Start Date End Date Newton Mendiola MD [address] [address] PCP - General 06/09/16 Sly Cade MD [address] [address] Referring Physician Cardiology 12/07/18 documented as of this encounter
--- OUTSIDE RECORDS SUMMARY | 2024-03-18 04:59 | XMS_ITS | Encounter Summary ---
Author Organization [facility] Address [address] [place] [address] Phone Care Team Providers Care Roughener Name Role Phone Newton Mendiola MD Primary Care Provider [phone] Sly Cade MD Unavailable [phone] Reason for Visit * Reason Comments OT Treatment * Consultation (Routine) - Closed Specialty Diagnoses / Procedures Referred By Nino fletcher Referred To Contact Occupational Therapy Diagnoses Laceration of right little finger without foreign body without damage to nail, initial encounter Tacho Sanchez MD Phone: tel: fax: [facility] (All Locations) Referral ID Status Reason Start Date Expiration Date V isits Requested Visits Authorized [id number] Closed Specialty Services Required 10/11/2021 11/10/2022 24 24 Encounter Details Date Type Department Care Team (Late st Contact Info) Description 11/01/2021 10:30 AM CDT Therapy [facility] Occupational Therapy [address] [facility] 6th [place] [address] [place] [address] Parul Gottlieb OT [address] [address] Laceration of right little finger without foreign [...] and Family Not on file 2021 Attends [employer] Services Not on file 01/16 Active Member [...] place to sleep or slept in a care home (including now)? 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 Date of onset: 09/21/21 ?? Cause of injury: cutting vegetables ?? Date of surgery: 10/14/21 ?? Surgery details: Primary FDP repair- 4 strand ?? Next MD Appointment: 11/19/21?? Patient is 15 days postop today. Subjective: Patient reports feeling more movement and it didn't hurt as much since last visit. She wears coban wrap at night but takes it off if it feels uncomfortable. She likes to start the day with heat every morning. I can stretch my finger to bend all the way to my palm now but she is worried about difficulty with pip extension [x] Mental health status discussed Details: less frustration today Pain: 4/10 today with tylenol on board. Of note, patient cannot take ibuprofen or other pain medications. Objective: Circumference:- Right SF- P1- 7 PIP- 6.3 P2- 5.7 DIP- 5.1 After therapy: able to passively touch small finger pad to palm (1 cm distal to DPC) ?? Small finger flexion arom (measured during place and hold): Mp: 70 Pip: 65 Dip: 0 Passive protected pip extension: -10 Absent flicker test at small finger fdp Treatment provided: -light debridement of scab and dry skin performed today -hot pack x5 minutes on foam wedge for elevation, positioned in protective flexion -edema management, retrograde massage -Scar mobilization as a unit with vaseline -PROM - small finger composite flexion, isolated joint flexion -protected PROM for pip extension - again reviewed technique for patient to complete -place and holds x10 repetitions with emphasis on placement of small finger -synergistic wrist motion (tenodesis): 10 repetitions with cueing for 5 second hold each repetition -added short arc half fist with cueing to initiate movement at dip joint x5 repetitions (not added to home program today) -foam padding placed behind p1 of small finger in splint to maximize pip extension -educated patient to continue aggressive edema management, including 1 inch coban wrap distal to proximal (demonstrated today) - will wear coban at night and outside of hourly exercise sessions Assessment: Patient demonstrates great improvement in pip extension today, improving from her best measurementstwo visits ago. She is also able to loosen up quickly and passively touch her palm with her small finger. However, no active dip flexion is noted, and absent flicker present. However, this may be dueto thickened scar adhesions limiting tendon excursion. Her edema and passive digit flexion/extension have improved significantly today, so we will continue and based on limited pull through, treatment was progressed to include short arc digit flexion. Plan: Therapy 2x weekly. Reinforce importance of regular progress and consistent home program completion for maximal outcome. Monitor pip extension and encourage tendon pull through Progress short arc motion if appropriate. Goals: Goal Status / Date Updated Due by: STG1 Verbalize understanding of pre- cautions for flexor tendon New 10/16/2021 ongoing STG2 Increase PROM to DPC all right digits Ongoing 11/01/2021 10/30/21 STG3 Active right SF active PIP joint extension -5 or less Ongoing 11/01/2021 10/30/21 ? LTG1 Pt will report readiness for discharge to [facility], gradual return to more strenuous activities with 0/10 pain and verbalize understanding of any remaining precautions Ongoing 11/01/2021 12/16/21?? LTG2 ? LTG3 ? Start time: 1030 End Time: 1115 Parul Gottlieb OTR/L, CHT documented in this encounter Plan of Treatment Scheduled Procedures Name Priority Associated Diagnoses Date/Ti me ESOPHAGOGASTRODUODENOSCOPY Nausea Colon cancer screening COLONOSCOPY Nausea Colon cancer screening documented as of this encounter Visit Diagnoses Diagnosis Laceration of right little finger without foreign body without damage to nail, subsequent encounter- Primary documented in this encounter Care Teams Roughener Relationship Specialty Start Date End Date Newton Mendiola MD [address] [address] PCP - General 06/09/16 Sly Cade MD [address] [address] Referring Physician Cardiology 12/07/18 documented as of this encounter
--- OUTSIDE RECORDS SUMMARY | 2024-03-18 04:59 | XMS_ITS | Encounter Summary ---
Author Organization [facility] Address [address] [place] [address] Phone Care Team Providers Care Portfolio Lead Name Role Phone Newton Mendiola MD Primary Care Provider [phone] Sly Cade MD Unavailable [phone] Reason for Visit * Reason Comments OT Treatment * Consultation (Routine) - Closed Specialty Diagnoses / Procedures Referred By Nino fletcher Referred To Contact Occupational Therapy Diagnoses Laceration of right little finger without foreign body without damage to nail, initial encounter Tacho Sanchez MD Phone: tel: fax: [facility] (All Locations) Referral ID Status Reason Start Date Expiration Date V isits Requested Visits Authorized [id number] Closed Specialty Services Required 10/11/2021 11/10/2022 24 24 Encounter Details Date Type Department Care Team (Late st Contact Info) Description 10/29/2021 10:30 AM CDT Therapy [facility] Occupational Therapy [address] [facility] 6th [place] [address] [place] [id number] Cristal Stiles, OT [address] [address] Laceration of right little finger [...] and Family Not on file 2021 Attends [employer] Services Not on file 01/16 Active Member [...] on file 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 Occupational Therapy Treatment Note Katy Sauceda 1965 Diagnosis: R SF FDP laceration s/p primary repair ?? Date of onset: 09/21/21 ?? Cause of injury: cutting vegetables ?? Date of surgery: 10/14/21 ?? Surgery details: Primary FDP repair- 4 strand ?? Next MD Appointment: 11/19/21?? Patient is 15 days postop today. Subjective: [x] Mental health status discussed Details: less frustration today Pain: 4/10 today with tylenol on board. Of note, patient cannot take ibuprofen or other pain medications. Objective: Circumference:- Right SF- P1- 7 PIP- 6.3 P2- 5.7 DIP- 5.1 Passive extension of right SF PIP joint -30 (at last visit -15 degrees). Patient reports she forgotto complete passive extension exercises (written instructions provided) - she is very tender and only able to tolerate moderate intensity of stretch Passive flexion: Mp: 75 (10 degree improvement) Pip: 75 (5 degree improvement) Dip: 40 (no change) After therapy: able to passively touch small finger pad to palm (1 cm distal to DPC) Approximate half fist with absent active dip flexion today ?? Treatment provided: -sutures removed today -hot pack x5 minutes on foam wedge for elevation, positioned in protective flexion -edema management, retrograde massage, initiated gentle scar mobilization as a unit with vaseline -PROM - small finger composite flexion, isolated joint flexion -protected PROM for pip extension -place and holds x10 repetitions with emphasis on placement of small finger -synergistic wrist motion (tenodesis): 10 repetitions with cueing for 5 second hold each repetition -Reviewed each exercise above for technique, review to complete hourly -added short arc half fist with cueing [...] outside of hourly exercise sessions Assessment: Patient has lost passive pip extension gains from last visit. She benefits from firm reinforcement of home program each visit and review of technique. Progressed to short arc active fist today, but this was not issued as part of home program. Patient reports soreness in her small finger after manual stretch and retrograde massage - she reports that she has burst blood vessels quite often, but no discoloration indicating that happened was noted today. Overall, her small finger is very sensitive and edema is tricky to resolve. Instructed patient in 1 inch coban wrap technique for edema. She is very relieved to have her sutures removed, and has been hoping things will get better now that they are removed - educated patient that she must continue aggressive edema management and home exercises to progress. Plan: increase therapy to 2x weekly due to poor progress. Reinforce importance of regular progress and consistent home program completion for maximal outcome. Goals: Goal Status / Date Updated Due by: STG1 Verbalize understanding of pre- cautions for flexor tendon New 10/16/2021 ongoing STG2 Increase PROM to DPC all right digits Ongoing 10/29/2021 10/30/21 STG3 Active right SF active PIP joint extension -5 or less Ongoing 10/29/2021 10/30/21 ? LTG1 Pt will report readiness for discharge to [facility], gradual return to more strenuous activities with 0/10 pain and verbalize understanding of any remaining precautions Ongoing 10/29/2021 12/16/21?? LTG2 ? LTG3 ? Start time: 1030 End Time: 1135 Parul Gottlieb OTR/L, CHT documented in this encounter Plan of Treatment Scheduled Procedures Name Priority Associated Diagnoses Date/Ti me ESOPHAGOGASTRODUODENOSCOPY Nausea Colon cancer screening COLONOSCOPY Nausea Colon cancer screening documented as of this encounter Visit Diagnoses Diagnosis Laceration of right little finger without foreign body without damage to nail, subsequent encounter- Primary documented in this encounter Care Teams Portfolio Lead Relationship Specialty Start Date End Date Newton Mendiola MD [address] [address] PCP - General 06/09/16 Sly Cade MD [address] [address] Referring Physician Cardiology 12/07/18 documented as of this encounter
--- OUTSIDE RECORDS SUMMARY | 2024-03-18 04:59 | XMS_ITS | Encounter Summary ---
Author Organization [facility] Address [address] [place] [address] Phone Care Team Providers Care Hot Dip Tinning Supervisor Name Role Phone Newton Mendiola MD Primary Care Provider [phone] Sly Cade MD Unavailable [phone] Reason for Visit * Reason Comments OT Treatment OT Discharge * Consultation (Routine) - Closed Specialty Diagnoses / Procedures Referred By Nino fletcher Referred To Contact Occupational Therapy Diagnoses Laceration of right little finger without foreign body without damage to nail, initial encounter Tacho Sanchez MD Phone: tel: fax: [facility] Occupational Therapy [address] [place] [address] [address] [place] [address] [place] [address] Phone: tel: fax: Referral ID Status Reason Start Date Expiration Date V isits Requested Visits Authorized [id number] Closed Specialty Services Required 11/19/2021 12/19/2022 24 24 Encounter Details Date Type Department Care Team (Late st Contact Info) Description 01/09/2022 10:30 AM CDT Therapy [facility] Occupational Therapy [address] [place] [address] [address] [place] [address] [place] [address] Parul Gottlieb, OT [address] [address] Laceration of right little finger [...] and Family Not on file 2021 Attends [employer] Not on file 01/16 Active Member [...] file 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 [] Mental health status discussed Pain: 0/10 Objective: DOS- 10/14/21 12 weeks postop AROM right small finger: Mp: 0/91 Pip: - Dip: 0/0 *5 degree flexion with blocking Associate Civil Engineer: Right 47 Left 57 Quick DASH: 25 Treatment provided: Continuous US, 3.3 mhz, .5 w/cm2 x5 minutes to scar sites and volar p2 IASTM to digit, scar to reduce adhesions limiting soft tissue excursion Soft yellow putty for resort housekeeper and resisted hook fist, including issued for home program; reviewed precautions to avoid damaging surfaces with putty as well as avoiding overuse. She feels her tip is moving more when she is attempting resisted hook fist Assessment: Josefina demonstrates continued improvement overall, and she is independent with her home program including upgrades today. Her issue is scar adherence and soft tissue adhesions limiting fdp pull through - she should continue her home program with the hope of breaking through these adhesions for increased dip flexion Plan: Discharge to continued home program Goals: STG1: Verbalize understanding of precautions for flexor tendon; ongoing 12/10/21 STG2: Increase PROM to DPC all right digits - goal met 11/13/21 STG3: Active right SF active PIP joint extension -5 or less - goal met 11/19/21 STG4: Increase ROSA by 10 degrees for improved grasp of water cup - goal met 01/09/22 LTG1: Pt will report readiness for discharge to [facility], gradual return to more strenuous activities with 0/10 pain and verbalize understanding of any remaining precautions - goal met 01/09/22 LTG2: Patient will type for 2 hours without pain - goal met 01/09/22 Start time: 1030 End Time: 1130 Parul Gottlieb OTR/Rikki, CHT documented in this encounter Plan of Treatment Scheduled Procedures Name Priority Associated Diagnoses Date/Ti me ESOPHAGOGASTRODUODENOSCOPY Nausea Colon cancer screening COLONOSCOPY Nausea Colon cancer screening documented as of this encounter Visit Diagnoses Diagnosis Laceration of right little finger without foreign body without damage to nail, subsequent encounter- Primary documented in this encounter Care Teams Hot Dip Tinning Supervisor Relationship Specialty Start Date End Date Newton Mendiola MD [address] [address] PCP - General 06/09/16 Sly Cade MD [address] [address] Referring Physician Cardiology 12/07/18 documented as of this encounter
--- OUTSIDE RECORDS SUMMARY | 2024-03-18 04:59 | XMS_ITS | Encounter Summary ---
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 Role Phone Newton Mendiola MD Primary Care Provider [phone] Sly Cade MD Unavailable [phone] Reason for Visit * Auth/Cert Specialty Diagnoses / Procedures Referred By Contac t Referred To Contact Diagnoses Laceration of right little finger, initial encounter Laceration of right little finger, initial encounter [S61.216A] Procedures AK REPAIR FLEXOR TENDON,HAND,W/O GRAFT,EA REPAIR TENDON - FINGER small finger flexor digitorum profundus Referral ID Status Reason Start Date Expiration Date Visits Re quested Visits Authorized [id number] 1 1 Encounter Details Date Type Department Care Team (Latest Contact Info) Description 10/14/2021 8:21 AM CDT - 10/14/2021 4:43 PM CDT Hospital Encounter [facility] Operating Room [address] [place] [address] Tacho Sanchez MD [address] 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 Sanchez Follow-up Appointments Your first postoperative visit with Dr. Sanchez is listed on the first page of your discharge instructions. You should be scheduled to see [facility] 2-3 days after surgery. If you do not havean appointment, please call them at [phone] Dr. Sanchez may send you directly to the [facility] after your first postoperative visit in his office. Please be aware that this may add an hour or two to your first postoperative visit. If you have been scheduled for a visit with therapy, it will be listed on the first page of your discharge instructions. Dressing and Wound Care A large dressing has been placed on your arm to reduce motion and control swelling. Keep your dressing clean and dry. Keep the dressing/splint on until your first postoperative office visit. Wear a plastic bag over your dressing/splint whenever you take a shower or bath Swelling is normal after surgery. Elevate your hand/arm so the surgical site is above your heart todecrease the swelling. Swelling is like water, it runs downhill. This is especially important for the first 72 hours after surgery. The best way to elevate your hand/arm is with your fingers pointing towards the ceiling and your hand/arm above the level of the heart (see handout). You can use pillows to help prop your hand/arm up when sitting or lying down. If you are experiencing pain, be sure you are elevating your hand/arm as often as possible. Apply an ice pack over your dressing/splint for 20 minutes of every hour for the first 3 days when you are awake. This can help to reduce swelling and inflammation. Be sure the ice pack is waterproofso it does not leak on the dressing/splint. A simple ice pack can be made by adding ten cubes and asmall amount of water in a small zip-lock bag. Seal this small bag tightly. Place this small bag trevor larger zip lock bag. Apply to the area in pain. If the dressing feels too tight in spite of elevation, loosen the outer wrap but do not remove the entire dressing. ACTIVITIES: Bend and straighten the parts of your hand/arm that are not included in your surgical dressing or splint. Do this at least 6 times a day, as this will help decrease swelling and speed up your recovery. This includes your fingers when exposed so that you make a full fist. POSTOPERATIVE CARE/CONCERNS: You may experience some temporary numbness in your fingers. You should have very little to no bleeding on your dressing. Notify the office (see contact info at bottom of page) for any of the following: Excessive pain not relieved by rest, elevation, and pain medications Feeling that the dressing is too tight in spite of adequately elevating hand/arm Active bleeding through the dressing Drainage from the wound site or pin sites Foul odor from the dressing/wound Temperature greater that 101? F or chills Blue or excessively cold fingertips Numbness of the fingertips that does not improve in spite of adequately elevating hand/arm PAIN MEDICATION: A prescription for pain medication has been sent to the outpatient pharmacy at the [place] [facility]. Do not take pain medication or anti-inflammatories on an empty stomach. It is illegal to drive while taking narcotic pain medication Pain is a normal part of the recovery after surgery. The pain medication provided to you will help to decrease the discomfort but will not completely eliminate the pain. Your pain should decrease over the first few days after surgery which will allow you to take less pain medicine, increase the time between doses of medication, or stop taking all pain medicine. Please refer to the Perioperative Narcotic Considerations form below OFFICE CONTACT NUMBERS During business hours (Mon-Fri 8am-4:30pm) Dr. Sanchez's Nurse: QUANG KING phone: [phone] After hours/weekend (Emergencies Only; no medication refills) [facility] Medical Exchange: [phone] or toll-free Perioperative Narcotic Considerations The Orthopedic hand surgeons of [facility] manage perioperative pain as wellas the pain after an acute injury. Our surgeons do not manage chronic pain (pain three months afterthe injury/surgery), and will refer patients seeking longer term care for their painful condition to a pain management service or their primary physician as those physicians typically establish skilled nursing treatment relationships with patients. Following elective hand and upper extremity surgery, a prescription for an opioid-based medication will likely be given to the patient. ???Minor??? procedures such as carpal tunnel release, trigger finger release and ganglion excision will receive 10-20 tablets of Tylenol with Codeine, Tramadol, orNorco. Your surgeon will decide which is the most appropriate. Most other procedures will be receive 20-30 tablets. Procedures that will need aggressive and continuous post-operative hand therapy (and adequate acute pain control during this period) may need a greater number of pain tablets to last the during the therapy period. Your surgeon may discuss with you reasoning behind the number of tablets that will be prescribed. There are many things that a patient can do to manage their pain after surgery or after an acute injury: Move the shoulder, elbow and all other joints that are not immobilized by the post-operative dressing as much as possible. Elevate the operated hand and wrist so that swelling can be reduced. Place ice and a few ounces of tap water in a small sealed plastic bag, and place it on the outside of the surgical dressing. Keep it there until the operated part under the ice bag starts to feel cold. This can reduce both pain and swelling. Anti-inflammatory pain medication such as Advil, Aleve, generic Ibuprofen, generic Naproxen or generic Naprosyn can all be used in addition to the narcotics prescribed by your doctor. Prescription anti-inflammatory pain medication such as Celebrex, Indocin or Toradol can be called in to your pharmacy if ???yrfy-ibx-gxvaaht??? anti- inflammatory pain medication do not decrease the pain even when taken on a regular basis. These can be called in during the hours 9am to 4pm, during the workweek. ???Alternative??? treatments such as acupuncture, meditation and biofeedback can all be used to decrease post-operative pain. The Orthopedic hand surgeons of [facility] want you to be as comfortable as possible following your operation or your injury, and we want you to return to your level of active function as quickly as possible. Although narcotics (opioid medications) can have a role in obtaining pain relief after surgery or injury, the prolonged use of these highly addictive medications can- and do- have severe side effects. Even in patients who are not addicted, narcotics become less effective over time as the body becomes tolerant to the drug and there is evidence that prolonged use mayincrease the body???s interpretation of pain. The ???opioid epidemic??? in [place] is very real, and we as physicians are duty-bound to be as appropriate as can be in the administration of narcotics. When prescribed narcotics, you should start with a plan of how to wean off of them and where you will keep the drug to avoid any misuse by those around you. If you have any questions about our philosophy regarding the prescriptions of narcotic medications for the relief of pain following surgery orinjury, please talk to your surgeon or his/her nurse or MA. * Attachments The following attachments cannot be sent through Care Everywhere. * Peripheral Nerve Block (Discharge Care) (Citizen Of [place]) * [facility] TO EXCELLENT CARE AFTER SURGERY documented in this encounter Medications at Time of Discharge aspirin 81 mg tablet Take 1 tablet (81 mg total) by mouth daily acetaminophen (TYLENOL) 500 mg tablet Take 2 tablets (1,000 mg total) by mouth every 6 (six) hours as needed for pain 30 tablet 10/14/2021 3 atorvastatin (LIPITOR) 40 mg tablet Take 1 tablet (40 mg total) by mouth nightly 90 tablet 1 04/02/2021 2 buPROPion XL (WELLBUTRIN XL) 300 mg 24 hr tablet Take 1 tablet (300 mg total) by mouth every morning 90 tablet 07/29/2021 2 dapagliflozin (FARXIGA) 10 mg tabletIndications :heart failure with reduced ejection fraction Take 1 tablet (10 mg total) by mouth daily 90 tablet 3 12/21/2020 2 ergocalciferol (VITAMIN D) 50,000 unit capsule TAKE 1 CAPSULE (50,000 UNITS TOTAL) BY MOUTH ONCE A WEEK FRIDAYS 4 capsule 5 07/29/2021 2 famotidine (PEPCID) 40 mg tablet Take 1 tablet (40 mg total) by mouth daily 30 tablet 11 12/17/2020 2 fluticasone propionate (FLONASE) 50 mcg/actuation nasal sprayIndications: Allergic rhinitis, unspecified seasonality, unspecified trigger Administer 2 sprays into each nostril daily 16 g 11 12/11/2020 2 isosorbide mononitrate ER (IMDUR) 30 mg 24 hr tablet TAKE 1 TABLET BY MOUTH EVERY DAY 90 tablet 1 08/20/2020 2 loratadine (CLARITIN) 10 mg tablet Take 10 mg by mouth daily 3 losartan (COZAAR) 50 mg tablet Take 1 tablet (50 mg total) by mouth daily 90 tablet 05/24/2021 2 metoprolol XL (TOPROL-XL) 100 mg 24 hr tablet Take 1 tablet (100 mg total) by mouth daily 90 tablet 3 05/28/2020 2 ondansetron (ZOFRAN) 4 mg tablet TAKE 1 TABLET BY MOUTH EVERY 8 HOURS NEEDED FOR NAUSEA AND VOMITING 20 tablet 1 07/29/[address] (PROTONIX) 40 mg EC tablet TAKE 1 TABLET BY MOUTH EVERY DAY 30 tablet 14 09/20/2021 2 polyethylene glycol (GoLYTELY) 236-22.74-6.74 -5.86 gram solution On 10/02 - at 6 PM drink 1/2 of jug of Nulytely. On 10/03 - at 0815 AM drink remaining 1/2 of jug of Nulytely until jug empty. 4000 mL 09/26/2021 2 spironolactone (ALDACTONE) 25 mg tablet TAKE 1 TABLET BY MOUTH EVERY DAY 90 tablet 3 10/07/2021 4 traMADoL (ULTRAM) 50 mg tablet Take 1 tablet (50 mg total) by mouth every 6 (six) hours as needed for pain 16 tablet 10/14/2021 2 valACYclovir (VALTREX) 1 gram tablet Take 2 tabs q 12 hours x 1 day. 12 tablet 1 06/27/2021 2 documented as of this encounter Ordered Prescriptions Prescription Sig Dispense Quantity Refills Last Filled Start Date End Date acetaminophen (TYLENOL) 500 mg tablet Take 2 tablets (1,000 mg total) by mouth every 6 (six) hours as needed for pain 30 tablet 10/14/2021 3 traMADoL (ULTRAM) 50 mg tablet Take 1 tablet (50 mg total) by mouth every 6 (six) hours as needed for pain 16 tablet 10/14/2021 2 documented in this encounter Discharge Disposition Disposition Code Departure Means Destination Discharge to home or self care documented in this encounter H&P Notes * Sherry Sheffield MD - 10/14/2021 11:32 AM CDT I have reviewed the H&P, examined the patient, and endorse the findings as written. Plan of Care : Based on the above findings, I consider Katy Sauceda to be an acceptable risk for : Procedure(s): REPAIR TENDON - FINGER small finger flexor digitorum profundus Cosigned by Tacho Sanchez MD at 10/14/2021 11:54 AM CDT Source Note - Soy Willett MD - 10/09/2021 10:10 AM CDT Orthopaedic Surgery New Clinic Patient Reason for Visit: Pain of the Right Little Finger History of Present Illness: This is a 56-year-old female presenting as a new patient for a an injury to her right hand. She wascooking dinner on September 21, 2021 and cut her right ring finger and small finger. She had significant bleeding at that time. She initially was treating this with home wound care. However after 3 or 4 days she realized that she was unable to bend her small finger fully. She saw her PCP at that time who referred her to Hand surgery. She is here today for 1st visit. She reports that the swelling has gone down significantly. She does report at some point there was something white and strengthening of the wound however this has since resolved. She is totally fine on the ring finger with normal sensation a full range of motion. 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 He does have pain when typing at this time. Past Medical History She has a past medical history of Bipolar disorder ([facility]), CHF (congestive heart failure) ([facility]) ([facility]), COVID-19 virus infection (01/15/2021), Depression, GERD (gastroesophageal reflux disease), Hodgkin lymphoma ([facility]) (09/09/2016), Hypertension, Irritable bowel syndrome, Kidney stone, and Thyroidnodule. She has no past medical history of Coronary artery disease. Past Surgical History She has a past surgical history that includes Colonoscopy; Cholecystectomy; Rotator cuff repair (2009); Other surgical history; Thyroid surgery (2004); Cyst Removal; and IR Port Placement Chest > 5 Years (1992). Initial Review of Medications She has a current medication list which includes the following prescription(s): aspirin, atorvastatin, bupropion xl, dapagliflozin, ergocalciferol, famotidine, fluticasone propionate, isosorbide mononitrate er, loratadine, losartan, metoprolol xl, nitrofurantoin monohydrate, ondansetron, pantoprazole dr, polyethylene glycol, spironolactone, and valacyclovir. Allergies She is allergic to codeine, hydrocodone, and penicillin. Social History She reports that she quit smoking about 22 years ago. Her smoking use included cigarettes. She has a 5.00 pack-year smoking history. She has never used smokeless tobacco. She reports current drug use. Drug: Marijuana. Patient denies consuming alcoholic drinks. Family History Her family history includes Diabetes in her father; Hyperlipidemia in her father and mother; Hypertension in her father and mother. Physical Exam: Gen.: The patient is awake, alert and in no acute distress. Head: Normocephalic, atraumatic Eyes: Extraocular movements intact, sclerae anicteric Lungs: Nonlabored respirations on room air Cardiac: No evidence of cyanosis, clubbing or edema, fingertips are warm and well-perfused. Musculoskeletal: Focused exam of the right hand demonstrates well-healed lacerations over the ring finger and small finger at the volar PIP crease. Ring finger has normal sensation in full active range of motion of the PIP and distal interphalangeal joints. On the small finger, she has two-point discrimination of 7 on the radial side and 5 on the ulnar side. She has full PIP joint motion however cannot actively flex the distal interphalangeal joint. When making a fist, she can flex the PIP joint of the small finger with the DPC of about 1/2 cm. The hand is otherwise warm well perfused. Radiographic Evaluation: None today Assessment and Plan: This is a 56-year-old female presenting with a right small finger FDP tendon laceration that occurred on September 21, 2021. We had a long discussion about the nature of this injury and potential treatmentoption at this time. We discussed that there is literature to support non operative treatment especially for an FDP tendon. In this case we would have her go to occupational therapy and work on finger range of motion specifically at the PIP joint small finger. If this were to bother her down the line could always consider a fusion for weakness. The option would be primary repair of the FDP tendon. We discussed that this would likely result in a tendon repair however could run the risk of significant scarring and stiffness of the finger down the line requiring additional surgery. Teaching Attestation: I have seen and evaluated Katy Sauceda. Please refer to the narrative dictated by Dr. Avila for details of the history and physical examination findings. The patient's diagnosis is: Right small finger flexor digitorum profundus laceration, zone 2, date of injury September 21, 2021 The plan of care includes: The nature of the clinical findings reviewed in detail with patient. Valhas what appears to be evidence of flexor digitorum profundus tendon laceration, her FDS tendon appears to be intact. She also has some numbness more so on the radial side of her digit. At this point, we reviewed the literature with regards to repair versus observation of FDP tendon. We discussed that certainly it could be considered reasonable to simply observe this although she would not regainactive flexion of her D IP joint. We discussed the risks and benefits of repair including potentialfor regaining some function of the D IP joint, but potentially at the cost of stiffness and decreased finger range of motion. She would like to consider options. I discussed with her that she wishes to proceed with surgery, I think that should be done next week given that she is already 2 weeks outfrom her injury. Unfortunately, I will be out of town, therefore I would refer her to 1 my partners. She will consider her options and call us back if she wishes to schedule surgery. If so, I would discussed with my partners, she would meet them on the morning of surgery. She is comfortable with this plan. Follow up: As above Addendum on October 10, 2021: The patient called back and stated that she would like to proceed with surgery. I discussed this with Dr. Sanchez, he has kindly agreed to help take care of the patient. She will be scheduled for surgery on Thursday with Dr. Sanchez. Dr. Soy Willett dictating using [employer]. Salon Sales Consultant variances may occur. Soy Willett M.D., M.Sc. Neonatal Surgeon, Department of Orthopaedic Surgery [facility] in [address] [facility]. [place], [place] [address] documented in this encounter Nursing Notes * Breanne Soriano RN - 10/14/2021 4:17 PM CDT Teaching and instructions given to patient and spouse. All questions answered at this time. Filled prescription given. documented in this encounter Miscellaneous Notes * Op Note - Tacho Sanchez MD - 10/14/2021 12:26 PM CDT Date of Surgery: 10/14/2021 Pre-operative Diagnosis: Three week old Zone 2 flexor digitorum profundus laceration, ulnar digital nerve contusion Post-operative diagnosis: Same Procedure(s): REPAIR TENDON - FINGER small finger flexor digitorum profundus (Right) Attending Surgeon: Tacho Sanchez MD, MSc FRCS(C) Resident: 1. Sherry Sheffield MD Signal Maintainer Helper: Naif Adkins RN; Arminda Kulkarni RN Scrub: Steph Nolasco RN; Lambert Choudhary [facility] Scrub: Chante Sauceda RN Signal Maintainer Helper Second: Linda Candelario RN Anesthesia: Choice Blood loss: No blood loss documented. Tourniquet Time: Total Tourniquet Time Documented: Arm - Upper (Right) - 57 minutes Total: Arm - Upper (Right) - 57 minutes Findings: Nerve looked fine on exploration Specimen: No specimens collected during this procedure. Complications: None Indications: Three week old FDP laceration with absent DIP flexion The risks discussed included bleeding, infection, damage to blood vessels/nerves/tendons/bone, chronic pain, stiffness, and need for additional surgery. The patient had a good understanding of this and elected to proceed. Informed consent was obtained. Site Marking: The operative site was marked in the holding area. The consent was verified and all questions were answered. Time Out Procedure: A preprocedural pause was conducted to verify correct patient side, site, procedure, allergies, antibiotics and post-operative plan. Informed consent was obtained prior to the surgery and the patient was brought to the operating room. The patient was positioned supine on the OR table with use of a hand table. Sequential compression devices were applied to the bilateral lower extremities as indicated. Anesthesia was induced as noted above. A preprocedural pause was conducted to verify correct patient side, site and procedure aswell as confirm the wound class, and presence of mechanical DVT prophylaxis. The arm was then sterilely prepped and draped in the usual sterile fashion, and a nonsterile tourniquet was placed high above the elbow. Appropriate preoperative antibiotics were given as indicated. Patient placed supine, antibiotic administered and tourniquet inflated. Midaxial incisionmade and extended proximally and distally. Both digital NV bundles identified and preserved. FDP delivered through an intact A1 and A2 as well as A3 jayla. Four strand modofied Huerta with 4-0 looped supramidand 6-0 prolene done. Excellent digital cascade. Closure in the usual fashion and dorsal block applied. Drains: Active and Removed None Implants: Nothing was implanted during the procedure Counts: All needle, sponge, and instrument counts were correct at the end of the case. Condition: The patient was transferred to the PACU in good condition. Attending participation: I was present and scrubbed for all critical portions of the case includingExposure, digital nerve neurolysis and exploration as well as Zone two FDP repair. I was immediately available for all non critical components of the case. Post-operative plan Therapy as discussed with [facility] on Thursday. documented in this encounter Plan of Treatment Scheduled Procedures Name Priority Associated Diagnoses Date/Ti me ESOPHAGOGASTRODUODENOSCOPY Nausea Colon cancer screening COLONOSCOPY Nausea Colon cancer screening documented as of this encounter Procedures Procedure Name Priority Date/Time Associated Diagnosis Comments REPAIR TENDON - FINGER 10/14/2021 12:04 PM CDT Laceration of right little finger, initial encounter Case Notes 10/11: blank dpc email sent to resource nurses. MICHELINE Special Needs [employer], Tigre Tendon Rods ,#8 wolof paed feed tube, paed cervical dilators, tendon passer, 67,69 [place] blades, straight marian needles documented in this encounter Visit Diagnoses Diagnosis Laceration of right little finger, initial encounter- Primary documented in this encounter Admitting Diagnoses Diagnosis Laceration of right little finger, initial encounter documented in this encounter Administered Medications Inactive Administered Medications - up to 3 most recent administrations Medication Order MAR Action Action Date Dose Rate Site acetaminophen (TYLENOL) tablet 1,000 mg 1,000 mg, oral, Once, On Thu10/14/21 at 1200, For 1 dose, Pre-Op, Indications: Pre-Emptive AnalgesiaIndications:Pre-Emptive Analgesia Given 10/14/2021 11:39 AM CDT 1,000 mg famotidine (PEPCID) tablet 20 mg 20 mg, oral, Once, On Thu10/14/21 at 1200, For 1 dose, Pre-Op, Indications: gastroesophageal reflux diseaseIndications:gastroesophage al reflux disease Given 10/14/2021 11:39 AM CDT 20 mg Lactated Ringer's (LR) infusion 30 mL/hr, intravenous, Continuous, Starting on Thu10/14/21 at 1200, Pre-Op New Bag 10/14/2021 1:26 PM CDT New Bag 10/14/2021 11:35 AM CDT ondansetron (ZOFRAN) injection 4 mg 4 mg, intravenous, Administer over 2 Minutes, Once as needed, nausea, vomiting, Starting on Thu10/14/21 at 1410, For 1 dose, Phase I, Proceed to haloperidol if ondansetron has been given within the last 6 hours. Given 10/14/2021 2:14 PM CDT 4 mg traMADoL (ULTRAM) tablet 50 mg 50 mg, oral, Once as needed, 1st line for pain, Starting on Thu10/14/21 at 1410, For 1 dose, Phase I, When able to tolerate PO., Indications: PainIndications:Pain Given 10/14/2021 2:41 PM CDT 50 mg documented in this encounter Discontinued Medications Medication Sig Discontinue Reason Start Date End Da te nitrofurantoin monohydrate (MACROBID) 100 mg capsule TAKE 1 CAPSULE BY MOUTH EVERY 12 HOURS FOR 5 DAYS. MUST ADMINISTER WITH A MEAL/FOOD Other 08/28/2021 10/14/2021 documented as of this encounter Active and Recently Administered Medications Times are shown in CDT. Scheduled Medication Order 10/12/2021 10/13/2021 10/14/2021 acetaminophen (TYLENOL) tablet 1,000 mg (COMPLETED) 1,000 mg, oral, Once, On Thu10/14/21 at 1200, For 1 dose, Pre-Op, Indications: Pre-Emptive Analgesia 1139 (Given - Provid er: Eva Quintanilla RN) famotidine (PEPCID) tablet 20 mg (COMPLETED) 20 mg, oral, Once, On Thu10/14/21 at 1200, For 1 dose, Pre-Op, Indications: gastroesophageal reflux disease 1139 (Given - Provid er: Eva Quintanilla RN) Continuous Medication Order 10/12/2021 10/13/2021 10/14/2021 Lactated Ringer's (LR) infusion 30 mL/hr, intravenous, Continuous, Starting on Thu10/14/21 at 1200, Pre-Op 1135 (New Bag - Prov ider: Kostas Baker CRNA)1326 (New Bag - Provider: Kostas Baker CRNA)1448 (Stopped - Provider: Noemy Roberts RN) PRN Medication Order 10/12/2021 10/13/2021 10/14/2021 haloperidol (HALDOL) injection 1 mg 1 mg, intravenous, Once as needed, nausea, vomiting, Starting on Thu10/14/21 at 1410, For 1 dose, Phase I, If nausea/vomiting not relieved by ondansetron within 30 minutes or if ondansetron has been given within the last 6 hours. HYDROmorphone (DILAUDID) injection 0.2 mg 0.2 mg, intravenous, Administer over 2 Minutes, Every 10 min PRN, 1st line for pain, Starting on Thu10/14/21 at 1410, Phase I, Switch to 2nd line analgesic order if pain is uncontrolled or increasing after 2 doses. Notify Anesthesiologist if total PACU dose reaches 2 mg and pain score 5/10 or more., Indications: Pain HYDROmorphone (DILAUDID) injection 0.4 mg 0.4 mg, intravenous, Administer over 2 Minutes, Every 10 min PRN, 2nd line for pain, Starting on Thu10/14/21 at 1410, Phase I, May administer 10 mintes after 2nd dose of 1st line analgesic agent for uncontrolled or increasing pain. Revert to 1st line dose if POSS of 3. Notify Anesthesiologist if total PACU dose reaches 2 mg and pain score 5/10 or more., Indications: Pain naloxone (NARCAN) 0.4 mg/mL injection 0.04-0.4 mg 0.04-0.4 mg, intravenous, Once as needed, other, excessive sedation/respiratory depression, Starting on Thu10/14/21 at 1410, For 1 dose, Phase I, Dilute 0.4 mg with 9 mL NS (final concentration 0.04 mg/mL). For respiratory depression (respiratory rate less than 6), administer 0.4 mg IVP over 30 seconds. For excessive sedation administer 0.04 mg (1 mL) every 1 minute until desired level of alertness. For IV, administer over 30 seconds., Indications: Opioid Toxicity ondansetron (ZOFRAN) injection 4 mg (COMPLETED) 4 mg, intravenous, Administer over 2 Minutes, Once as needed, nausea, vomiting, Starting on Thu10/14/21 at 1410, For 1 dose, Phase I, Proceed to haloperidol if ondansetron has been given within the last 6 hours. 1414 (Given - Provid er: Noemy Roberts RN) sodium chloride 0.9% irrigation (CANCELED) As needed, Starting on Thu10/14/21 at 1236, Intra-Op 1236 (Given - Provid er: Tacho Sanchez MD - Comment: sterile field) traMADoL (ULTRAM) tablet 50 mg (COMPLETED) 50 mg, oral, Once as needed, 1st line for pain, Starting on 10/14/21 at 1410, For 1 dose, Phase I, When able to tolerate PO., Indications: Pain 1441 (Given - Provid er: Noemy Roberts, ESAU) documented in this encounter Orders Medications Ordered That Allan ht Not Have Been Administered Count Last Ordered Date First Ordered Date Carrier Fluids for Secondary Infusion - 0.9% Sodium Chloride 1 10/14/2021 haloperidol (HALDOL) injection 1 mg 1 10/14 HYDROmorphone (DILAUDID) injection 0.2 mg 1 10/14/2021 HYDROmorphone (DILAUDID) injection 0.4 mg 1 10/14/2021 Lactated Ringer's (LR) infusion 1 2 naloxone (NARCAN) 0.4 mg/mL injection 0.04-0.4 mg 1 10/14/2021 sodium chloride 0.9% flush 0.5-20 mL 1 03/2021 sodium chloride 0.9% irrigation 1 2 Diet Count Last Ordered Date First Orde red Date ADULT DISCHARGE DIET 1 10/14/2021 Discharge Count Last Ordered Date First Orde red Date DISCHARGE PATIENT 1 10/14/2021 documented in this encounter Care Teams Truck Trailer Mechanic Relationship Specialty Start Date End Date Newton Mendiola MD [address] [address] PCP - General 06/09/16 Sly Cade MD [address] [facility] [address] [place] [address] Referring Physician Cardiology 12/07/18 documented as of this encounter
--- OUTSIDE RECORDS SUMMARY | 2024-03-18 04:59 | XMS_ITS | Encounter Summary ---
Author Organization [facility] Address [address] [place] [id number] Care Team Providers Care Core Java Engineer Name Role Phone Newton Mendiola MD Primary Care Provider [phone] Sly Cade MD Unavailable [phone] Reason for Visit * Reason Comments Pre-op Exam Procedure PCR Covid Swab Encounter Details Date Type Department Care Team (Latest Contact Info) Description 10/11/2021 11:45 AM CDT Clinical Support [facility] [address] [place] [id number] Pre-op testing (Primary Dx) Social History Tobacco Use Types [...] and Family Not on file 2021 Attends [employer] Not on file 01/16 Active Member [...] on file Legal 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 Scheduled for a procedure on 10/14/21. N95 mask, gown, gloves, and eye protection worn during swab collection. Patient instructed to self-isolate from time of swab collection until scheduled surgery. documented in this encounter Plan of Treatment Scheduled Procedures Name Priority Associated Diagnoses Date/Ti me ESOPHAGOGASTRODUODENOSCOPY Nausea Colon cancer screening COLONOSCOPY Nausea Colon cancer screening documented as of this encounter Visit Diagnoses Diagnosis Pre-op testing- Primary Unspecified pre-operative examination documented in this encounter Care Teams Core Java Engineer Relationship Specialty Start Date End Date Newton Mendiola MD [address] [facility] [address] [address] PCP - General 06/09/16 lSy Cade MD [address] [place] [address] Referring Physician Cardiology 12/07/18 documented as of this encounter
--- OUTSIDE RECORDS SUMMARY | 2024-03-18 04:59 | XMS_ITS | Encounter Summary ---
Author Organization [facility] Address [address] [place] [address] Care Team Providers Care Anatomy And Physiology Instructor Name Role Phone Newton Mendiola MD Primary Care Provider [phone] Sly Cade MD Unavailable [phone] Reason for Referral * MRI/CAT/PET Scan (Routine) - Closed Specialty Diagnoses / Procedures Referred By Savitaac chance Referred To Contact Radiology Diagnoses Mixed hyperlipidemia Prediabetes Diplopia Other complicated headache syndrome Procedures MRI Brain W WO Contrast Newton Mendiola MD [address] [address] Phone: tel: fax: [address] [phone] Referral ID Status Reason Start Date Expiration Date Visits Re quested Visits Authorized [id number] Closed 05/16/2022 06/30/2022 1 1 S DONOR RECRUITMENT REPRESENTATIVE Reason for Visit * MRI/CAT/PET Scan (Routine) - Closed Specialty Diagnoses / Procedures Referred By Contac t Referred To Contact Radiology Diagnoses Mixed hyperlipidemia Prediabetes Diplopia Other complicated headache syndrome Procedures MRI Brain W WO Contrast Newton Mendiola MD [address] [address] Phone: tel: fax: [address] [phone] Referral ID Status Reason Start Date Expiration Date Visits Re quested Visits Authorized [id number] Closed 05/16/2022 06/30/2022 1 1 Encounter Details Date Type Department Care Team (Latest Contact Info) Description 05/23/2022 7:25 PM SALES DONOR RECRUITMENT REPRESENTATIVE - 05/23/2022 11:59 PM SALES DONOR RECRUITMENT REPRESENTATIVE Hospital Encounter [facility] [address] [place] [address] Mixed hyperlipidemia; Prediabetes; Diplopia; Other complicated headache syndrome Discharge Disposition: Discharge to home or self [...] and Family Not on file 2021 Attends [employer] Not on file 01/16 Active Member [...] on file Legal Sex Female 7:55 AM SALES DONOR RECRUITMENT REPRESENTATIVE Gender Identity Not on file Sexual Orientation Not on file documented as of this encounter Medications at Time of Discharge aspirin 81 mg tablet Take 1 tablet (81 mg total) by mouth daily cetirizine (ZyrTEC) 10 mg tablet Take 1 tablet (10 mg total) by mouth daily cyanocobalamin, vitamin B-12, (VITAMIN B-12 ORAL) Take by mouth daily atorvastatin (LIPITOR) 40 mg tablet Take 1 tablet (40 mg total) by mouth daily 3 buPROPion XL (WELLBUTRIN XL) 300 mg 24 hr tablet Take 1 tablet (300 mg total) by mouth daily 3 cholecalciferol (VITAMIN D-3) 50,000 unit capsule Take 1 capsule (50,000 Units total) by mouth once a week [address] (DEPAKOTE) 125 mg EC tablet TAKE 1 TABLET BY MOUTH 2 TIMES A DAY. 60 tablet 1 05/20/2022 3 ergocalciferol (VITAMIN D) 50,000 unit capsule TAKE 1 CAPSULE (50,000 UNITS TOTAL) BY MOUTH ONCE A WEEK Fridays04/18/2022 3 famotidine (PEPCID) 40 mg tablet daily 02/24/2022 3 Farxiga 10 mg tablet TAKE 1 TABLET BY MOUTH EVERY DAY 90 tablet 04/18/2022 3 fluticasone propionate (FLONASE) 50 mcg/actuation nasal spray Administer 1 spray into each nostril daily 3 isosorbide mononitrate ER (IMDUR) 30 mg 24 hr tablet Take 1 tablet (30 mg total) by mouth daily 4 loratadine (CLARITIN) 10 mg tablet Take 10 mg by mouth daily 3 losartan (COZAAR) 50 mg tablet Take 1 tablet (50 mg total) by mouth daily 3 metoprolol XL (TOPROL-XL) 100 mg 24 hr tablet TAKE 1 TABLET BY MOUTH EVERY DAY 90 tablet 3 04/21/2022 4 ondansetron (ZOFRAN) 4 mg tablet TAKE 1 TABLET BY MOUTH EVERY 8 HOURS NEEDED FOR NAUSEA AND VOMITING 20 tablet 1 03/17/[address] (PROTONIX) 40 mg EC tablet daily 12/19/2021 3 spironolactone (ALDACTONE) 25 mg tablet TAKE 1 TABLET BY MOUTH EVERY DAY 90 tablet 3 10/07/2021 4 documented as of this encounter Discharge Disposition Disposition Code Departure Means Destination Discharge to home or self care documented in this encounter Plan of Treatment Scheduled Procedures Name Priority Associated Diagnoses Date/Ti me ESOPHAGOGASTRODUODENOSCOPY Nausea Colon cancer screening COLONOSCOPY Nausea Colon cancer screening documented as of this encounter Procedures Procedure Name Priority Date/Time Associated Diagnosis Comments MRI BRAIN W WO CONTRAST Schedule Routine, Read Routine (OP Routine) 05/23/2022 8:19 PM SALES DONOR RECRUITMENT REPRESENTATIVE Mixed hyperlipidemia Prediabetes Diplopia Other complicated headache syndrome documented in this encounter Results * MRI Brain W WO Contrast (05/23/2022 8:19 PM SALES DONOR RECRUITMENT REPRESENTATIVE) Anatomical Region Laterality Modality Head and Neck N/A Magnetic Resonan ce 05/24/2022 7:43 AM SALES DONOR RECRUITMENT REPRESENTATIVE Impressions 05/24/2022 9:10 AM SALES DONOR RECRUITMENT REPRESENTATIVE 1. ??No findings to explain the patient's symptoms. Dictated by: Sulaiman Elmore M.D. The radiology attending physician has personally reviewed this study, and had reviewed and/or edited this written report and agrees with it. Electronically signed by: Dejan Ibarra M.D. Narrative 05/24/2022 9:10 AM SALES DONOR RECRUITMENT REPRESENTATIVE EXAMINATION: Magnetic resonance imaging (MRI) of the brain and brainstem without and with contrast HISTORY: Headache TECHNIQUE: Multiplanar multi-weighted MRI of the brain and brainstem was performed without and with intravenous contrast using the general brain protocol. Contrast information: 15 mL Dotarem COMPARISON: CT sinus 12/17/2020 FINDINGS: There is a small mucus retention cyst in the left maxillary sinus. The scalp and calvarium are normal. ?? The superior sagittal sinus demonstrates normal venous flow. ??The corpus callosum is normal in shape and signal intensity. ??The posterior fossa is unremarkable. The pituitary and sella are normal. ??The brainstem and craniocervical junction are unremarkable. Diffusion weighted images reveal no hyperintensities to suggest acute cerebral infarction. ??The susceptibility weighted sequences reveal no evidence of acute or chronic hemorrhage. ??The ventricles are normal in size and position without evidence of hydrocephalus . There are no areas of abnormal contrast enhancement. The visualized portions of the mastoids are unremarkable. ??The orbits appear normal. ??Normal flow voids are demonstrated in the carotid arteries and basilar artery. Procedure Note Dejan Ibarra III, MD PhD - 05/24/2022 EXAMINATION: Magnetic resonance imaging (MRI) of the brain and brainstem without and with contrast HISTORY: Headache TECHNIQUE: Multiplanar multi-weighted MRI of the brain and brainstem was performed without and with intravenous contrast using the general brain protocol. Contrast information: 15 mL Dotarem COMPARISON: CT sinus 12/17/2020 FINDINGS: There is a small mucus retention cyst in the left maxillary sinus. The scalp and calvarium are normal. The superior sagittal sinus demonstrates normal venous flow. The corpus callosum is normal in shape and signal intensity. The posterior fossa is unremarkable. The pituitary and sella are normal. The brainstem and craniocervical junction are unremarkable. Diffusion weighted images reveal no hyperintensities to suggest acute cerebral infarction. The susceptibility weighted sequences reveal no evidence of acute or chronic hemorrhage. The ventricles are normal in size and position without evidence of hydrocephalus . There are no areas of abnormal contrast enhancement. The visualized portions of the mastoids are unremarkable. The orbits appear normal. Normal flow voids are demonstrated in the carotid arteries and basilar artery. IMPRESSION: 1. No findings to explain the patient's symptoms. Dictated by: Sulaiman Elmore M.D. The radiology attending physician has personally reviewed this study, and had reviewed and/or edited this written report and agrees with it. Electronically signed by: Dejan Ibarra M.D. Newton Mendiola MD IMG MRI PROCEDURES Final Resu lt documented in this encounter Visit Diagnoses Diagnosis Mixed hyperlipidemia Prediabetes Other abnormal glucose Diplopia Other complicated headache syndrome documented in this encounter Administered Medications Inactive Administered Medications - up to 3 most recent administrations Medication Order MAR Action Action Date Dose Rate Site gadoterate meglumine injection 15 mL 15 mL, intravenous, Once in imaging, contrast, Starting on Thu05/23/22 at 1948, For 1 dose Contrast Given 05/23/2022 7:48 PM SALES DONOR RECRUITMENT REPRESENTATIVE 15 mL documented in this encounter Care Teams Anatomy And Physiology Instructor Relationship Specialty Start Date End Date Newton Mendiola MD [address] [address] PCP - General 06/09/16 Sly Cade MD [address] [address] Referring Physician Cardiology 12/07/18 documented as of this encounter
--- OUTSIDE RECORDS SUMMARY | 2024-03-18 04:59 | XMS_ITS | Encounter Summary ---
Author Organization [facility] Address [address] [place] [address] Phone Care Team Providers Care Directory Assistance Operator Name Role Phone Newton Mendiola MD Primary Care Provider [phone] Sly Cade MD Unavailable [phone] Encounter Details Date Type Department Care Team (Late st Contact Info) Description 03/03/2022 12:00 PM ENGINEER OPERATIONS AND MAINTENANCE Office Visit [facility] Cardiology [address] [facility] [address] [place] [address] Roxanne Downey NP [address] [place], [place] [id number] Cardiomyopathy, unspecified type (HCC) (Primary Dx); Chronic systolic (congestive) heart failure (HCC); Primary hypertension; Mixed hyperlipidemia Social History Tobacco Use Types Packs/Day Years [...] and Family Not on file 2021 Attends [employer] Services Not on file 01/16 Active Member [...] on file Legal Sex Female 7:55 AM ENGINEER OPERATIONS AND MAINTENANCE Gender Identity Not on file Sexual Orientation Not on file documented as of this encounter Last Filed Vital Signs Vital Sign Reading Time Taken Comments Blood Pressure 139/86 03/03/2022 12:06 PM ENGINEER OPERATIONS AND MAINTENANCE Pulse 77 03/03/2022 12:06 PM ENGINEER OPERATIONS AND MAINTENANCE Temperature - - Respiratory Rate - - Oxygen Saturation 98% 03/03/2022 12:06 PM ENGINEER OPERATIONS AND MAINTENANCE Inhaled Oxygen Concentration - - Weight 86.8 kg (191 lb 6.4 oz) 03/03/2022 12:06 PM ENGINEER OPERATIONS AND MAINTENANCE Height 165.1 cm (5' 5 ) 03/03/2022 12:06 PM ENGINEER OPERATIONS AND MAINTENANCE Body Mass Index 31.85 03/03/2022 12:06 PM ENGINEER OPERATIONS AND MAINTENANCE documented in this encounter Patient Instructions * Patient Instructions* Roxanne Downey NP - 03/03/2022 12:00 PM ENGINEER OPERATIONS AND MAINTENANCE For the next 1-2 weeks, please check your heart rate and blood pressure once in the evening. Write down this information and keep a log. Please note any symptoms you are feeling during this time. Then, please either send a [employer] message with this information or call our office to give us an update. The best way to take your blood pressure is in the evening when you are rested and in a quiet place. Your feet should be flat on the ground and your back supported in a chair. Check it three times, throw out the first and average the second two. NEER OPERATIONS AND MAINTENANCE documented in this encounter Progress Notes * Roxanne Downey NP - 03/03/2022 12:00 PM CST Images from the original note were not included. CARDIOLOGY RETURN OFFICE VISIT Primary care Physician Newton Mendiola MD [address] [address] Patient Name: Katy Sauceda Date of : 1965 Date of Visit: 03/03/2022 PRINCIPAL AND SECONDARY DIAGNOSES: NICM LBBB during [...] LV function LVEF 55%, hyperdynamic RV function 2. 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 She follows routinely with Dr. Remy. Since her last office visit with Dr. Remy in July, she has been doing well from a cardiovascular standpoint. She reports worsening depression over the summer resulting in self discontinuation of her medications. She saw her primary care provider in early December and was restarted on medical therapy. She enjoys walking 2 miles for exercise, but has not done so recently due to the cold weather. She keeps herself busy taking care of 3 young grandchildren. She reports mild exertional dyspnea which is chronic and unchanged for her. She denies symptoms of chest pain, pressure, or discomfort, lower extremity edema, orthopnea, or PND, palpitations, lightheadedness, dizziness, near-syncope, or syncope. BP mildly elevated today in clinic 139/86. She has not been routinely checking her BP at home. CURRENT MEDICATIONS: Current Outpatient Medications: aspirin 81 mg tablet atorvastatin (LIPITOR) 40 mg tablet buPROPion XL (WELLBUTRIN XL) 300 mg 24 hr tablet cholecalciferol (VITAMIN D-3) 50,000 unit capsule cyanocobalamin, vitamin B-12, (VITAMIN B-12 ORAL) famotidine (PEPCID) 40 mg tablet Farxiga 10 mg tablet fluticasone propionate (FLONASE) 50 mcg/actuation nasal spray isosorbide mononitrate ER (IMDUR) 30 mg 24 hr tablet losartan (COZAAR) 50 mg tablet metoprolol XL (TOPROL-XL) 100 mg 24 hr tablet ondansetron (ZOFRAN) [address] (PROTONIX) 40 mg EC tablet spironolactone (ALDACTONE) 25 mg tablet acetaminophen (TYLENOL) 500 mg tablet gabapentin (NEURONTIN) 300 mg capsule loratadine (CLARITIN) 10 mg tablet REVIEW OF SYSTEMS: General: No fever, chills, malaise or fatigue HEENT: No alterations in auditory acuity, no sore throat Pulmonary: Positive for chronic stable exertional dyspnea. Denies cough or hemoptysis Cardiac: No chest pain, pressure, or discomfort. Denies orthopnea, PND or palpitations, lightheadedness, dizziness, near syncope, or syncope GI: No nausea, vomiting, diarrhea or constipation Musculoskeletal: No myalgias or arthralgias Skin: No rashes Neuro: No headaches, parathesias or focal neurological complaints Endocrine: No cold or heat intolerance Heme: no excessive bleeding or bruising PHYSICAL EXAMINATION: Vitals: 03/03/22 1206 BP: 139/86 BP Location: Left arm Patient Position: Sitting Pulse: 77 SpO2: 98% Weight: 86.8 kg (191 lb 6.4 oz) Height: 165.1 cm (5' 5 ) Body mass index is 31.85 kg/m??. General: Alert and oriented, well-nourished, in [...] pallor, clubbing, or rashes. CARDIAC STUDIES: EKG 12/29/18 = NSR 83, normal axis, left bundle branch block, TTE 03/02/20 = LVEDD 5.1 cm, LVEF 46% with dyschronous septum, imparied relaxation, no significant valvular abnormalitites & no major change from 2018 TTE 12/10/20 = mildly reduced LVEF 51% with no appreciable changes from 02/2020, paradoxical septal motion, pseudo normal Kardea capture during palpitations 05/20/20 LABORATORY/DIAGNOSTICS: Lipids 11/22/2020: TC 232, HDL 31, LDL 166, TG 176 Lipids 08/27/2021: (POC) TC 123, HDL 30, LDL 68, TG 130 A1c 11/22/2020: 6.2% A1c 08/27/2021: 6.2% CMP 08/27/2021: Cr 1.02, K 4.8, normal LFTs IMPRESSION AND PLAN: 1. Cardiomyopathy, unspecified type (HCC) Doing well from a cardiovascular standpoint. She was briefly off medical therapy in the setting of worsening depression, but has resumed without issue. Continue metoprolol, losartan, imdur, farxiga, aldactone. Echocardiogram December 2020 with recovery of LV systolic function, low-normal EF 55%. 2. Chronic systolic (congestive) heart failure (HCC) Euvolemic on physical exam. Continue current therapy. 3. Primary hypertension Mildly elevated today in clinic. She has not been checking her BP at home. Recommend she monitor her BP over the next few weeks and keep a log. She will call our office if readings are consistently >130/80. 4. Mixed hyperlipidemia At goal, LDL 68 (08/2021). Continue statin therapy. We will plan to see her back in 6 months, however we would be happy to see her sooner if needed. YAHIR Quigley-Grzegorz CC: Newton Mendiola MD [address] [id number] This note was dictated with voice-recognition software, web software engineer errors may be present. NEER OPERATIONS AND MAINTENANCE documented in this encounter Plan of Treatment Scheduled Procedures Name Priority Associated Diagnoses Date/Ti la ESOPHAGOGASTRODUODENOSCOPY Nausea Colon cancer screening COLONOSCOPY Nausea Colon cancer screening documented as of this encounter Visit Diagnoses Diagnosis Cardiomyopathy, unspecified type (HCC)- Primary Chronic systolic (congestive) heart failure (HCC) Primary hypertension Unspecified essential hypertension Mixed hyperlipidemia documented in this encounter Discontinued Medications Medication Sig Discontinue Reason Start Date End Da te gabapentin (NEURONTIN) 300 mg capsule Take 1 capsule (300 mg total) by mouth nightly for 5 days, THEN 2 capsules (600 mg total) nightly. Other 11/06/2021 03/03/2022 documented as of this encounter Historical Medications * This list may reflect changes made after this encounter. cyanocobalamin, vitamin B-12, (VITAMIN B-12 ORAL) Take by mouth daily fluticasone propionate (FLONASE) 50 mcg/actuation nasal spray Administer 1 spray into each nostril daily 3 ondansetron (ZOFRAN) 4 mg tablet Take 4 mg by mouth as needed for nausea or vomiting 3 buPROPion XL (WELLBUTRIN XL) 300 mg 24 hr tablet Take 1 tablet (300 mg total) by mouth daily 3 cholecalciferol (VITAMIN D-3) 50,000 unit capsule Take 1 capsule (50,000 Units total) by mouth once a week 3 atorvastatin (LIPITOR) 40 mg tablet Take 1 tablet (40 mg total) by mouth daily 3 losartan (COZAAR) 50 mg tablet Take 1 tablet (50 mg total) by mouth daily 3 metoprolol XL (TOPROL-XL) 100 mg 24 hr tablet Take 100 mg by mouth daily 3 isosorbide mononitrate ER (IMDUR) 30 mg 24 hr tablet Take 1 tablet (30 mg total) by mouth daily 4 famotidine (PEPCID) 40 mg tablet daily 02/24/2022 3 Farxiga 10 mg tablet daily 02/24/2022 3 added in this encounter Care Teams Directory Assistance Operator Relationship Specialty Start Date End Date Newton Mendiola MD [address] [address] PCP - General 06/09/16 Sly Cade MD [address] [address] Referring Physician Cardiology 12/07/18 documented as of this encounter
--- OUTSIDE RECORDS SUMMARY | 2024-03-18 04:59 | XMS_ITS | Encounter Summary ---
Author Organization [facility] Address [address] [place] [address] Care Team Providers Care Benefits Director Name Role Phone Newton Mendiola MD Primary Care Provider [phone] Sly Cade MD Unavailable [phone] Reason for Visit * Diagnostic Imaging (Routine) - Closed Specialty Diagnoses / Procedures Referred By Contac t Referred To Contact Diagnoses Pharyngoesophageal dysphagia Procedures FL Esophagram, Double Contrast FL Esophagram, Single Contrast Newton Mendiola MD [address] [address] Phone: tel: fax: [address] [address] Referral ID Status Reason Start Date Expiration Date Visits Re quested Visits Authorized [id number] Closed 05/16/2022 06/15/2023 1 1 Encounter Details Date Type Department Care Team (Latest Contact Info) Description 05/20/2022 8:51 AM CORRECTIONAL SUPERVISING COOK - 05/20/2022 11:59 PM CORRECTIONAL SUPERVISING COOK Hospital Encounter [facility] [address] [place] [address] Pharyngoesophageal dysphagia Discharge Disposition: Discharge to home or self [...] and Family Not on file 2021 Attends [employer] Not on file 01/16 Active Member [...] place to sleep or slept in a halfway (including now)? No 2021 Comments No Sex and Gender Information Value Date Recorded Sex Assigned at Not on file Legal Sex Female 7:55 AM CORRECTIONAL SUPERVISING COOK Gender Identity Not on file Sexual Orientation [...] Procedure Name Priority Date/Time Associated Diagnosis Comments FL ESOPHAGRAM, DOUBLE CONTRAST Schedule Routine, Read Routine (OP Routine) 05/20/2022 10:07 AM CORRECTIONAL SUPERVISING COOK Pharyngoesophageal dysphagia documented in this encounter Results * FL Esophagram, Double Contrast (05/20/2022 10:07 AM CORRECTIONAL SUPERVISING COOK) Anatomical Region Laterality Modality Body N/A Radio Fluoroscop y 05/20/2022 11:4 7 AM CORRECTIONAL SUPERVISING COOK Impressions 05/20/2022 11:54 AM CORRECTIONAL SUPERVISING COOK Tiny hiatal hernia without evidence of reflux or stricture. Dictated by: Cosme Mosley MD The radiology attending physician has personally reviewed this study, and had reviewed and/or edited this written report and agrees with it. Electronically signed by: Darek Elizabeth M.D. Narrative 05/20/2022 11:54 AM CORRECTIONAL SUPERVISING COOK EXAMINATION: DOUBLE CONTRAST BARIUM ESOPHAGRAM HISTORY: Dysphagia TECHNIQUE: The patient was given barium and effervescent crystals to drink as well as barium tablet, and multiple fluoroscopic and conventional overhead radiographs were obtained. FINDINGS: The patient's swallowing function is normal. The esophageal mucosa is normal without fold abnormalities or masses. The esophageal motility is normal. There is passage of contrast through a normal gastroesophageal junction. There is a tiny hiatal hernia best appreciated on series 21. The visualized portions of the stomach are normal. No reflux was elicited with provocative maneuvers. Procedure Note Darek Elizabeth MD - 05/20/2022 EXAMINATION: DOUBLE CONTRAST BARIUM ESOPHAGRAM HISTORY: Dysphagia TECHNIQUE: The patient was given barium and effervescent crystals to drink as well as barium tablet, and multiple fluoroscopic and conventional overhead radiographs were obtained. FINDINGS: The patient's swallowing function is normal. The esophageal mucosa is normal without fold abnormalities or masses. The esophageal motility is normal. There is passage of contrast through a normal gastroesophageal junction. There is a tiny hiatal hernia best appreciated on series 21. The visualized portions of the stomach are normal. No reflux was elicited with provocative maneuvers. IMPRESSION: Tiny hiatal hernia without evidence of reflux or stricture. Dictated by: Cosme Mosley MD The radiology attending physician has personally reviewed this study, and had reviewed and/or edited this written report and agrees with it. Electronically signed by: Darek Elizabeth M.D. Newton Mendiola MD IMG FLUOROSCOPY PROCEDURES Fi nal Result documented in this encounter Visit Diagnoses Diagnosis Pharyngoesophageal dysphagia Dysphagia, pharyngoesophageal phase documented in this encounter Administered Medications Inactive Administered Medications - up to 3 most recent administrations Medication Order MAR Action Action Date Dose Rate Site barium sulfate (E-Z DISK) 700 mg tablet 700 mg 700 mg, oral, Once in imaging, contrast, Starting on Thu05/20/22 at 1008, For 1 dose, Pre-Op/Floor Contrast Given 05/20/2022 9:30 AM CORRECTIONAL SUPERVISING COOK 700 mg barium sulfate (E-Z-HD) 98 % suspension 135 mL 135 mL, oral, Once in imaging, contrast, Starting on Thu05/20/22 at 1008, For 1 dose, Pre-Op/Floor Contrast Given 05/20/2022 9:25 AM CORRECTIONAL SUPERVISING COOK 135 mL barium sulfate (E-Z-PAQUE) 96 % (w/w) suspension 1 Bottle 1 Bottle, oral, Once in imaging, contrast, Starting on Thu05/20/22 at 1008, For 1 dose, Pre-Op/Floor Contrast Given 05/20/2022 9:35 AM CORRECTIONAL SUPERVISING COOK 1 Bottle sod bicarbonate-citric acid-simethicone (E-Z GAS) (EZ-GAS II) effervescent granules 1 packet 1 packet, oral, Once in imaging, contrast, Starting on Thu05/20/22 at 1008, For 1 dose, Pre-Op/Floor Given 05/20/2022 9:28 AM CORRECTIONAL SUPERVISING COOK 1 packet documented in this encounter Care Teams Benefits Director Relationship Specialty Start Date End Date Newton Mendiola MD [address] [place] [address] PCP - General 06/09/16 Sly Cade MD [address] [facility] [address] [place] [address] Referring Physician Cardiology 12/07/18 documented as of this encounter
--- OUTSIDE RECORDS SUMMARY | 2024-03-18 04:59 | XMS_ITS | Encounter Summary ---
Author Organization [facility] Address [address] [place] [address] Phone Care Team Providers Care Utilities Service Investigator Name Role Phone Newton Mendiola MD Primary Care Provider [phone] Sly Cade MD Unavailable [phone] Encounter Details Date Type Department Care Team (Late st Contact Info) Description 10/17/2021 Telephone [facility] Occupational Therapy [address] [facility] 6th [place] [address] [place] [id number] Chelsy Daugherty, OT [address] [address] Social History Tobacco Use Types Packs/Day Years [...] and Family Not on file 2021 Attends [employer] Services Not on file 01/16 Active Member [...] on file Legal Sex Female 7:55 AM NEON TECHNICIAN Gender Identity Not on file Sexual Orientation Not on file documented as of this encounter Miscellaneous Notes * Telephone Encounter - Chelsy Daugherty OT - 10/17/2021 4:20 PM CDT Images from the original note were not included. documented in this encounter Plan of Treatment Scheduled Procedures Name Priority Associated Diagnoses Date/Ti me ESOPHAGOGASTRODUODENOSCOPY Nausea Colon cancer screening COLONOSCOPY Nausea Colon cancer screening documented as of this encounter Visit Diagnoses Not on filedocumented in this encounter Care Teams Utilities Service Investigator Relationship Specialty Start Date End Date Newton Mendiola MD [address] [address] PCP - General 06/09/16 Sly Cade MD [address] [address] Referring Physician Cardiology 12/07/18 documented as of this encounter
--- OUTSIDE RECORDS SUMMARY | 2024-03-18 04:59 | XMS_ITS | Encounter Summary ---
Author Organization [facility] Address [address] [place] [address] Phone Care Team Providers Care Anesthesiology Fellow Name Role Phone Newton Mendiola MD Primary Care Provider [phone] Sly Cade MD Unavailable [phone] Encounter Details Date Type Department Care Team (Late st Contact Info) Description 10/17/2021 Telephone [facility] Occupational Therapy [address] [facility] 6th [place] [address] [place] [id number] Chelsy Daugherty, OT [address] [address] Social History Tobacco Use Types Packs/Day Years [...] and Family Not on file 2021 Attends [employer] Services Not on file 01/16 Active Member [...] place to sleep or slept in a [facility] (including now)? No 2021 Comments No Sex and Gender Information Value Date Recorded Sex Assigned at Not on file Legal Sex Female 7:55 AM FACILITIES MAINTENANCE MANAGER Gender Identity Not on file Sexual Orientation Not on file documented as of this encounter Miscellaneous Notes * Telephone Encounter - Chelsy Daugherty, OT - 10/17/2021 4:24 PM CDT Josefina sent the previous 2 pictures today 10/17/21 as she was very concerned about how swollen she is now. As much as this therapist expected this, this edema is fairly significant. We advised to do ice with wrist flexed over and under her right hand. Also after 15-20' of icing, she can do some milking massage. Explained that KS (therapist for 08/18/21) will provide both pinch and cut technique for cobanand fabricate a tubigrip finger cot so she can exchange them. Chelsy Daugherty, JIMMYR/L CHT documented in this encounter Plan of Treatment Scheduled Procedures Name Priority Associated Diagnoses Date/Ti me ESOPHAGOGASTRODUODENOSCOPY Nausea Colon cancer screening COLONOSCOPY Nausea Colon cancer screening documented as of this encounter Visit Diagnoses Not on filedocumented in this encounter Care Teams Anesthesiology Fellow Relationship Specialty Start Date End Date Newton Mendiola MD [address] [address] PCP - General 06/09/16 Sly Cade MD [address] [address] Referring Physician Cardiology 12/07/18 documented as of this encounter
--- OUTSIDE RECORDS SUMMARY | 2024-03-18 04:59 | XMS_ITS | Encounter Summary ---
Author Organization [facility] Address [address] [place] [address] Phone Care Team Providers Care Armature [employer] Name Role Phone Newton Mendiola MD Primary Care Provider [phone] Sly Cade MD Unavailable [phone] Reason for Visit * Reason Comments OT Treatment * Consultation (Routine) - Closed Specialty Diagnoses / Procedures Referred By Nino fletcher Referred To Contact Occupational Therapy Diagnoses Laceration of right little finger without foreign body without damage to nail, initial encounter Tacho Sanchez MD Phone: tel: fax: [facility] (All Locations) Referral ID Status Reason Start Date Expiration Date V isits Requested Visits Authorized [id number] Closed Specialty Services Required 10/11/2021 11/10/2022 24 24 Encounter Details Date Type Department Care Team (Late st Contact Info) Description 11/13/2021 10:30 AM CDT Therapy [facility] Occupational Therapy [address] [facility] 6th [place] [address] [place] [id number] Chelsy Daugherty, OT [address] [address] Laceration of right little finger [...] place to sleep or slept in a skilled nursing (including now)? No 2021 Comments No Sex and Gender Information Value Date Recorded Sex Assigned at Not on file Legal Sex Female 7:55 AM CLOTH MERCERIZER OPERATOR Gender Identity Not on file Sexual Orientation Not on file documented as of this encounter Progress Notes * Chelsy Daugherty, OT - 11/13/2021 10:30 AM CDT [facility] Occupational Therapy Treatment Note Katy Sauceda 1965 Diagnosis: R SF FDP laceration s/p primary repair Date of onset: 09/21/21 Cause of injury: cutting vegetables Date of surgery: 10/14/21 Surgery details: Primary FDP repair- 4 strand Next MD Appointment: 11/19/21 Subjective: Pain since starting the Neurontin is decreased by 60+%- it makes the difference. She reports being able to do more things at home and more energy except it also makes her more tired. She is a bit worried about adding the second pill today. She is about 1/2 [address] through the dose and she can feel it starting to fire already but nothing significant. She notices the scar tissue at the base of the SF seems to be changing and moving to the base and ulnar from medial PIP joint. She notices that the tip is now different, it's not , more tingling than before. [x] Mental health status discussed Much better Pain: 04/25 without any pain meds. Objective: CIRC- P1- 6.3 PIP- 5.8 P2- 5.5 cm. Treatment provided: - Scar mobilization - - PROM - small finger composite flexion - synergistic wrist motion (tenodesis): 5repetitions with continued cueing for 5 second hold each repetition. - Fabricated a DBS for the DIP joint in slight flexion for proprioceptive feedback as well as initiating motion from a flexed position. - Fabricated an otoform mold to be worn at night to reorganize scar tissue. - Adjusted forearm based DBS to decrease pressure over ulnar styloid. Assessment: Josefina reported that her pain is so much better since starting the neurontin. She feels like she nedra more and sleep more. She is noticing changes in her scar tissue- softening. After she got her DBS on the DIP joint, she noted that she could feel when her nail left the splint and when it returned. It really is moving a little bit, I'm not crazy. Her was saying he didn't see anything when she was exercising at home and thought she felt it move. This was visualized by this therapist; therefore, FDP is intact. She should benefit from this increased perception of digit in space as well as softening of the scar tissue from the otoform wearing. Plan: Therapy 2x weekly. Reinforce importance of regular progress and consistent home program completion for maximal outcome. Progress program as appropriate. Goals: Goal Status / Date Updated Due by: STG1 Verbalize understanding of pre- cautions for flexor tendon New 10/16/2021 ongoing STG2 Increase PROM to DPC all right digits Ongoing 11/13/2021 10/30/21- met 11/13/21 STG3 Active right SF active PIP joint extension -5 or less Ongoing 11/13/2021 10/30/21not met- new date- 11/28/21 LTG1 Pt will report readiness for discharge to [facility], gradual return to more strenuous activities with 0/10 pain and verbalize understanding of any remaining precautions Ongoing 11/13/2021 12/16/21 Start time: 1035 End Time: 1130 Chelsy Daugherty OTR/Rikki, CHT documented in this encounter Plan of Treatment Scheduled Procedures Name Priority Associated Diagnoses Date/Ti me ESOPHAGOGASTRODUODENOSCOPY Nausea Colon cancer screening COLONOSCOPY Nausea Colon cancer screening documented as of this encounter Visit Diagnoses Diagnosis Laceration of right little finger without foreign body without damage to nail, subsequent encounter- Primary documented in this encounter Care Teams Armature [employer] Relationship Specialty Start Date End Date Newton Mendiola MD [address] [place] [id number] PCP - General 06/09/16 Sly Cade MD [address] [facility] [address] [place] [id number] Referring Physician Cardiology 12/07/18 documented as of this encounter
--- OUTSIDE RECORDS SUMMARY | 2024-03-18 04:59 | XMS_ITS | Encounter Summary ---
Author Organization [facility] Address [address] [place] [address] Care Team Providers Care Director Pharmacology Name Role Phone Newton Mendiola MD Primary Care Provider [phone] Sly Cade MD Unavailable [phone] Reason for Visit * Auth/Cert Specialty Diagnoses / Procedures Referred By Contac t Referred To Contact Diagnoses Laceration of right little finger, initial encounter Laceration of right little finger, initial encounter [S61.216A] Procedures MA REPAIR FLEXOR TENDON,HAND,W/O GRAFT,EA REPAIR TENDON - FINGER small finger flexor digitorum profundus Referral ID Status Reason Start Date Expiration Date Visits Re quested Visits Authorized [id number] 1 1 Encounter Details Date Type Department Care Team (Late st Contact Info) Description 10/14/2021 12:10 PM CDT - 10/14/2021 2:35 PM CDT Surgery [facility] Operating Room [address] [place] [address] Tacho Sanchez MD [address] [facility] [address] REPAIR TENDON - FINGER small finger flexor digitorum profundus Surgery Details Date/Time Status Location OR Service Patient Class Case Cl ass Case Type Trauma Case? 10/14/2021 12:10 PM Posted [facility] OR POD 2 201 Orthopaedics Outpatient Elective Panel 1 Procedure [facility]RB Anes Op Region Wound Class Comments REPAIR TENDON - FINGER small finger flexor digitorum profundus Right Choice Fingers Class I - Paola n Surgeon Surgeon Role Service Panel Tacho Sanchez MD Primary Orthopaedics 1 Sherry Sheffield MD Resident - Assisting Plas tics 1 Case Notes 10/11: blank dpc email sent to resource nurses. 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 You should be scheduled to see [facility] 2-3 days after surgery. If you do not havean appointment, please call them at [phone] Dr. Sanchez may send you directly to the [facility] after your first postoperative visit [...] sent to the outpatient pharmacy at the [facility]. Do not take pain medication or anti-inflammatories [...] 8am-4:30pm) Dr. Sanchez's Nurse: QUANG KING phone: [phone] After hours/weekend (Emergencies Only; no medication refills) [facility] Medical Exchange: [phone] or toll-free Perioperative Narcotic Considerations The Orthopedic hand surgeons of [facility] manage perioperative pain as wellas the pain after an acute injury. Our surgeons do not manage chronic pain (pain three months afterthe injury/surgery), and will refer patients seeking longer term care for their painful condition to a pain management service or their primary physician as those physicians typically establish long-term treatment relationships with patients. Following elective hand [...] be called in to your pharmacy if ???[id number]??? anti- inflammatory pain medication do not decrease the pain even when taken on a regular basis. These can be called in during the hours 9am to 4pm, during the workweek. ???Alternative??? treatments such as acupuncture, meditation and biofeedback can all be used to decrease post-operative pain. The Orthopedic hand surgeons of [facility] want you to be [...] interpretation of pain. The ???opioid epidemic??? in [place] is very real, and we as physicians [...] Everywhere. * Peripheral Nerve Block (Discharge Care) ([place]) * [facility] PATHWAY TO EXCELLENT CARE AFTER SURGERY documented [...] an injury to her right hand. She was cooking dinner on September 21, 2021 and cut her right ring finger and small finger. She had significantbleeding at that time. She initially was treating [...] a past medical history of Bipolar disorder ([facility]), CHF (congestive heart failure) ([facility]/H[facility]) ([facility]), COVID-19 virus infection (01/15/2021), Depression, GERD (gastroesophageal reflux disease), Hodgkin lymphoma ([facility]) (09/09/2016), Hypertension, Irritable bowel syndrome, Kidney stone, [...] clinical findings reviewed in detail with patient. Shehas what appears to be evidence of flexor [...] Dr. Sanchez. Dr. Soy Willett dictating using MModal Fluency Software. Harbor Master variances may occur. Soy Willett M.D., M.Sc. Direct Care Counselor, Department of Orthopaedic Surgery [facility] [place] [address] [place], [place] [address] documented in this encounter Nursing Notes * Breanne Soriano, RN - 10/14/2021 4:17 PM CDT Teaching [...] MSc FRCS(C) Resident: 1. Sherry Sheffield MD Streetcar Starter: Naif Adkins RN; Arminda Kulkarni RN Scrub: Steph Nolasco RN; Lambert Choudhary [facility] Scrub: Chante Sauceda RN Streetcar Starter Second: Linda Candelario RN Anesthesia: Choice Blood [...] Special Needs MicroInstruments, Tigre Tendon Rods ,#8 armenian paed feed tube, paed cervical dilators, tendon passer, 67,69 reno-sparks blades, straight marian needles documented in this encounter Visit Diagnoses Diagnosis Laceration of right little finger, initial encounter- Primary Laceration of right little finger, initial encounter documented in this encounter Admitting Diagnoses Diagnosis [...] Given 10/14/2021 2:14 PM CDT 4 mg sodium chloride 0.9% irrigation As needed, Starting on Thu10/14/21 at 1236, Intra-Op Given 10/14/2021 12:36 PM CDT 1,000 mL Surgical Site traMADoL (ULTRAM) tablet 50 mg 50 mg, [...] Pain 1441 (Given - Provid er: Noemy Roberts RN) documented in this encounter Orders Medications Ordered [...] sodium chloride 0.9% flush 0.5-20 mL 1 0803/2021 Diet Count Last Ordered Date First Orde red Date ADULT DISCHARGE DIET 1 10/14/2021 Discharge Count Last Ordered Date First Orde red Date DISCHARGE PATIENT 1 10/14/2021 documented in this encounter Care Teams Director Pharmacology Relationship Specialty Start Date End Date Newton Mendiola MD [address] [address] PCP - General 06/09/16 Sly Cade MD [address] [address] Referring Physician Cardiology 12/07/18 documented as of this encounter
--- OUTSIDE RECORDS SUMMARY | 2024-03-18 04:59 | XMS_ITS | Encounter Summary ---
Author Organization [facility] Address [address] [place] [address] Phone Care Team Providers Care Estimating Engineer Name Role Phone Newton Mendiola MD Primary Care Provider [phone] Sly Cade MD Unavailable [phone] Reason for Visit * Reason Comments OT Treatment * Consultation (Routine) - Closed Specialty Diagnoses / Procedures Referred By Nino fletcher Referred To Contact Occupational Therapy Diagnoses Laceration of right little finger without foreign body without damage to nail, initial encounter Tacho Sanchez MD Phone: tel: fax: [facility] Occupational Therapy [address] [place] [address] 6th [place] [address] [place] [address] Phone: tel: fax: Referral ID Status Reason Start Date Expiration Date V isits Requested Visits Authorized [id number] Closed Specialty Services Required 11/19/2021 12/19/2022 24 24 Encounter Details Date Type Department Care Team (Late st Contact Info) Description 12/19/2021 11:30 AM CDT Therapy [facility] Occupational Therapy [address] [place] [address] 6th [place] [address] [place] [address] Parul Gottlieb OT [address] [address] Laceration of right little finger without foreign [...] and Family Not on file 2021 Attends [employer] Not on file 01/16 Active Member [...] on file 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 Pain: 0/10 without any pain meds; 2-3/10 with stretching. She is having some more nerve pain breaking through. I can feel my finger trying to move, but I don't really see anything move Objective: DOS- 10/14/21 9 weeks and 3 days postop Very mild active motion with pip gently blocked Treatment provided: -Paraffin to prepare tissues for therapy -continuous US, 3.3 mhz, .5 w/cm2 x5 minutes to scar sites -Scar mobilization to palm and small finger scar sites; progressed IASTM to include volar surface of digit; feathering technique to reduce edema and improve fibrotic tissue - improved tolerance today; also initiated at dorsum of digit where patient reports feelings of tightness preventing flexion -PROM - small finger composite flexion with emphasis on dip flexion. Added hook fist - this was tight -AROM small finger - hook and composite fist -P/H small finger - hook and composite fist -Continued BTE: 181, 504, 601 and 302 for spontaneous AROM and endurance (minimal resistance); added plant maintenance manager (162) today Assessment: Patient continues to demonstrate decreased pull through of fdp. Scar adherence appears to be primary factor; this was aggressively addressed today with IASTM and ultrasound treatment. Mild dip motion(approximately 5 degrees) achieved with gentle ip blocking performed in clinic only. She will address intrinsic tightness with more manual stretch into intrinsic plus, and will continue light use of her hand. She is incorporating her affected hand in typing tasks, cooking, and hygiene tasks, but isfrustrated regarding lack of dip flexion. Plan: 1x week x5 weeks Blocking orthosis holding MP in extension for improved ip flexion? Goals: STG1: Verbalize understanding of pre- cautions for flexor tendon; ongoing 12/10/21 STG2: Increase PROM to DPC all right digits - goal met 11/13/21 STG3: Active right SF active PIP joint extension -5 or less - goal met 11/19/21 STG4: Increase ROSA by 10 degrees for improved grasp of water cup - new goal 12/10/21; to be met by 12/23/21 LTG1: Pt will report readiness for discharge to [facility], gradual return to more strenuous activities with 0/10 pain and verbalize understanding of any remaining precautions - ongoing - due by 01/12/22 (new date) LTG2: Patient will type for 2 hours without pain - new goal 12/10/21; to be met by 01/12/22 Start time: 1130 End Time: 1230 Parul Gottlieb OTR/L, CHT Cosigned by Chelsy Daugherty OT at 12/19/2021 10:01 PM CDT documented in this encounter Plan of Treatment Scheduled Procedures Name Priority Associated Diagnoses Date/Ti me ESOPHAGOGASTRODUODENOSCOPY Nausea Colon cancer screening COLONOSCOPY Nausea Colon cancer screening documented as of this encounter Visit Diagnoses Diagnosis Laceration of right little finger without foreign body without damage to nail, subsequent encounter- Primary documented in this encounter Care Teams Estimating Engineer Relationship Specialty Start Date End Date Newton Mendiola MD [address] [place] [address] PCP - General 06/09/16 Sly Cade MD [address] [facility] [address] [place] [address] Referring Physician Cardiology 12/07/18 documented as of this encounter
--- OUTSIDE RECORDS SUMMARY | 2024-03-18 04:59 | XMS_ITS | Encounter Summary ---
Author Organization [facility] Address [address] [place] [address] Phone Care Team Providers Care Water Purifier Operator Name Role Phone Newton Mendiola MD Primary Care Provider [phone] Sly Cade MD Unavailable [phone] Reason for Visit * Consultation (Routine) - Closed Specialty Diagnoses / Procedures Referred By Nino fletcher Referred To Contact Occupational Therapy Diagnoses Laceration of right little finger without foreign body without damage to nail, initial encounter Tacho Sanchez MD Phone: tel: fax: [facility] (All Locations) Referral ID Status Reason Start Date Expiration Date V isits Requested Visits Authorized [id number] Closed Specialty Services Required 10/11/2021 11/10/2022 24 24 Encounter Details Date Type Department Care Team (Late st Contact Info) Description 10/16/2021 11:30 AM CDT Therapy [facility] Occupational Therapy [address] [facility] 6th [place] [address] [place] [id number] Chelsy Daugherty, OT [address] [facility] [address] [place] [address] Laceration of right little finger without foreign body without damage to nail, initial encounter Social History Tobacco Use Types [...] and Family Not on file 2021 Attends Denominational Services Not on file 01/16 Active Member of Clubs or Organizations Not on f ile 2021 Attends Club or Organization Meetings Not on lliiam e 2021 Are you , , di [...] on file 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 Date of onset: 09/21/21 Surgery: 10/14/21 FDP repair with button vs Tigre Jordon. ?? Frequency/Duration: 1-2x per week (as needed) for up to 3 months Next MD Visit: 10/22/21 ? OT/PT Evaluate and Treat: Please check op note. Plan is for FDP repair with button vs Tigre Jordon. Will be determined in surgery. ?? Edema mgmt Wound care ?? If repair with button: PROM flexion Active extension to splint Progress to gentle Place and Holds ?? If Tigre Jordon: A/PROM of digits Extension splint at night and intermittently during day ?? Orthosis Specifications: Forearm based dorsal block (WHFO) if repaired with button. Finger based extension splint if Tigre Jordon inserted. Purpose of orthosis: To support affected structures ?? Restrictions: Per surgical precautions. Patient reports: Josefina reported that on 09/21/21 she cut her Right SF in Zone II with a serrated knife while cutting vegetables. She was cutting with her left hand. She reported that it bled for a short while (very brown blood) and then stopped. Therefore, she did not seek medical care because she just thought it was a cut. Approximately 2 weeks later, she saw Dr. Willett but he would be out of townso he referred her to Dr. Sanchez who did her surgery on 10/14/21. Patient's primary goal: Get her hand moving again. Diagnosis: as above Date of onset: 09/21/21 Cause of injury: as above Date of surgery: 10/14/21 Surgery details: Primary FDP repair- 4 strand Next MD Appointment: 10/22/21 Past Medical History: Diagnosis Date ??? Bipolar disorder (HCC) ??? CHF (congestive heart failure) (CMS/HCC) (HCC) ??? COVID-19 virus infection 01/15/2021 ??? Depression ??? GERD (gastroesophageal reflux disease) ??? Hodgkin lymphoma (HCC) 09/09/2016 ??? Hypertension ??? Irritable bowel syndrome ??? Kidney stone ??? 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 Do you feel safe in your home environment?: [x] Yes [] No Lives with her , son, daughter in law and 3 grandchildren Hand dominance [x] Right [] Left [] Ambidextrous Involved side [x] Right [] Left [] Bilateral Numbness [] Yes [] No Location: not asked this date Tingling [] Yes [] No Location: not asked this date Pain at rest: 2-3/10 with Tylenol; pain increased to 7-8/10 with PROM and s/p surgery Are you taking pain medication? [x] Yes [] No Medication using: Tramadol which caused her stomach issues; now just Tylenol ADL Status: [] Independent [x] Independent but with increased time or pain [x] Requires assistance [] Dependent Details: IADL Status: [] Independent [] Independent but with increased time or pain [x] Requires assistance [] Dependent Details: Leisure activities: [] Able to participate in leisure activities [x] Able to participate but with increased time or pain [] Unable to participate in leisure activities Details: Sleep: [] Reports adequate sleep to support daily routines [x] Reports inadequate sleep to support daily routines Details: Objective: Wound/appearance: Sutures intact; no sign of infection Clinical Exam: Circumference:- Right SF- P1- 6.8 PIP- 6.3 P2- 5.7 DIP- 5.3 PROM: Right SF flexion- MP- 66 PIP- 72 DIP- 43 Active extension of right SF PIP joint- -28 Treatment Provided: - Evaluation - Removal of post-op bandage, washed with warm washcloth. - Placed Josefina in supine secondary to her feeling queasy. - Initiated PROM of all digits and explained flexor tendon precautions. Explained importance of regaining full PIP joint extension by 2 weeks s/p. Refer to handout. Video of instructions and proper technique and advise on relaxation done. - Fabrication of a dorsal block orthosis, padded dorsally for positioning while healing and to protect her surgery. See copy of orthosis instructions. She departed wearing her orthosis. - Bandaging was only 1 stockinette over the finger as no exudate from suture line. (May need to change to pinch technique with 2 coban dependent on edema next visit. Assessment: Pt demonstrated independence/verbalized understanding in: [x] HEP [x] Don/doff orthosis [x] All tx listed above Assessment details: Josefina reported feeling better upon departure than she did upon arrival. Less anticipatory stress and pain. Min/mod edema noted and pain limited ability to passively flex to the DPC. She had a bit of a hard time relaxing enough so that she didn't try to co-contract while releasing the passive flexion. By the end of the session, she would relax and exhale when she released it. Her orthosis fit wellbut will require adjustment as this therapist put her wrist in some slight flexion. Upon departure,she reported understanding all instructions and HEP. Josefina will benefit from skilled therapy services to regain her right dominant function. Impairment list: [] Coordination [x] Edema [x] Endurance/activity tolerance [] Fine motor use [] Flexibility [] Gross motor use [] Muscle tone [x] Pain [x] Range of motion [] Scar tissue [x] Sensation [] Sensory/motor [] Skin integrity [x] Strength Other: Functional Limitations: [x] ADLs [x] Community activities [] Communication [] Education [x] Home management [x] Leisure activities [] Play [] Safety [] Sports [] Work Other: Environmental Barriers: [x] Home [] Work [x] Community Barriers to Therapy: none (although she would prefer to go to therapy closer to home after the first 2 weeks). Intervention Approach: [] Health promotion [x] Remediation [] Wellness [] Adaptation [] Prevention Prognosis: [] Excellent [x] Good [] Fair [] Poor Goals for Therapy Intervention: Goal Status / Date Updated Due by: STG1 Verbalize understanding of pre- cautions for flexor tendon New 10/16/2021 ongoing STG2 Increase PROM to DPC all right digits New 10/16/2021 10/30/21 STG3 Active right SF active PIP joint extension -5 or less New 10/16/2021 10/30/21 LTG1 To be determined by primary therapist closer to home. New 10/16/2021 LTG2 New 10/16/2021 LTG3 New 10/16/2021 Plan: Frequency/Duration: Will see on 10/18/21 and adjust orthosis to wrist neutral, test sensation and review HEP, address edema with pinch technique if necessary. Plan Details:Return PRN for splint modification and progression of HEP. Patient plans to continue therapy closer to home, however will return intermittently in conjunction with MD visits. Patient will return only during coordinated visits to assure ongoing progression of rehabilitation. Start time: 1125 End time: 1235 REID Dietz/Rikki ACOSTAT FOR INSURANCE AUTHORIZATION PURPOSES ONLY: 1. Primary purpose of therapy: Rehabilitation2. Name tool(s) used during evaluation: Circ/PROM 3. Will any of the following be used as a primary treatment: None of these apply 4. Body part(s) affected: UE 5. Does the patient have difficulty performing age appropriate activities of daily living (ADLs) and activities related to independent living: Yes 6. Select all conditions expected to impact treatment: Musculoskeletal disorder documented in this encounter Plan of Treatment Scheduled Procedures Name Priority Associated Diagnoses Date/Ti me ESOPHAGOGASTRODUODENOSCOPY Nausea Colon cancer screening COLONOSCOPY Nausea Colon cancer screening documented as of this encounter Visit Diagnoses Diagnosis Laceration of right little finger without foreign body without damage to nail, initial encounter documented in this encounter Orders Outpatient Referral Count Last Ordered Date Fir st Ordered Date AMB REFERRAL ORDER TO HAND THERAPY 1 2021 documented in this encounter Care Teams Water Purifier Operator Relationship Specialty Start Date End Date Newton Mendiola MD [id number] [place] [address] PCP - General 06/09/16 Sly Cade MD [address] [facility] [address] [place] [address] Referring Physician Cardiology 12/07/18 documented as of this encounter
--- OUTSIDE RECORDS SUMMARY | 2024-03-18 04:59 | XMS_ITS | Encounter Summary ---
Author Organization [facility] Address [address] [place] [address] Phone Care Team Providers Care Insole Taper Name Role Phone Newton Mendiola MD Primary Care Provider [phone] Sly Cade MD Unavailable [phone] Reason for Visit * Reason Comments Follow-up Encounter Details Date Type Department Care Team (Late st Contact Info) Description 11/19/2021 10:00 AM CDT Office Visit [facility] Orthopaedic Surgery [address] [facility] 6th [place] [address] [place] [id number] Tacho Sanchez MD [address] [facility] [address] [place] [address] Laceration of right little finger without foreign body without damage to nail, initial encounter (Primary Dx) Social History Tobacco [...] and Family Not on file 2021 Attends Mosque Services Not on file 01/16 Active Member [...] on file 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 ESTABLISHED PATIENT VISIT INTERIM HISTORY Katy J Sauceda was seen in the office today. She is now 5 weeks out after distal profundus on therepair and the right small finger. Repair is intact. Very little pull-through. Not much passive motion either at the D IP.. IMPRESSION/TREATMENT PLAN Going to start her on passive motion of the D IP joint. Nothing further to do except work on softening up dorsally at the D IP joint. We are going to discontinue the splint a week early and I will see her back in six weeks. Tacho Sanchez M.D., MSc, FRCS(C) Professor [facility] Orthopedics documented in this encounter Plan of Treatment Scheduled Procedures Name Priority Associated Diagnoses Date/Ti me ESOPHAGOGASTRODUODENOSCOPY Nausea Colon cancer screening COLONOSCOPY Nausea Colon cancer screening documented as of this encounter Visit Diagnoses Diagnosis Laceration of right little finger without foreign body without damage to nail, initial encounter- Primary documented in this encounter Care Teams Insole Taper Relationship Specialty Start Date End Date Newton Mendiola MD [address] [address] PCP - General 06/09/16 Sly Cade MD [address] [address] Referring Physician Cardiology 12/07/18 documented as of this encounter
--- OUTSIDE RECORDS SUMMARY | 2024-03-18 04:59 | XMS_ITS | Encounter Summary ---
Author Organization [facility] Address [address] [place] [address] Care Team Providers Care Cardiac Rehab Nurse Name Role Phone Newton Mendiola MD Primary Care Provider [phone] Sly Cade MD Unavailable [phone] Reason for Referral * MRI/CAT/PET Scan (Routine) - Closed Specialty Diagnoses / Procedures Referred By Contac t Referred To Contact Radiology Diagnoses Mixed hyperlipidemia Prediabetes Diplopia Other complicated headache syndrome Procedures MRI Brain W WO Contrast Newton Mendiola MD [address] [facility] [address] [place] [address] Phone: tel: fax: [address] [address] Referral ID Status Reason Start Date Expiration Date Visits Re quested Visits Authorized [id number] Closed 05/16/2022 06/30/2022 1 1 IOTHORACIC SURGEON Reason for Visit * Reason Comments Fatigue Dizziness Strabismus Headache Dysphagia Encounter Details Date Type Department Care Team (Late st Contact Info) Description 05/16/2022 9:00 AM CARDIOTHORACIC SURGEON Office Visit [facility] [address] [facility] [address] [place] [id number] Newton Mendiola MD [address] [facility] [address] [place] [address] Mixed hyperlipidemia (Primary Dx); Prediabetes; Diplopia; Other complicated headache syndrome; Pharyngoesophageal dysphagia Social History Tobacco Use Types Packs/Day Years [...] place to sleep or slept in a penitentiary (including now)? No 2021 Comments No Sex and Gender Information Value Date Recorded Sex Assigned at Not on file Legal Sex Female 7:55 AM CARDIOTHORACIC SURGEON Gender Identity Not on file Sexual Orientation Not on file documented as of this encounter Last Filed Vital Signs Vital Sign Reading Time Taken Comments Blood Pressure 122/69 05/16/2022 8:42 AM CARDIOTHORACIC SURGEON Pulse 82 05/16/2022 8:42 AM CARDIOTHORACIC SURGEON Temperature - - Respiratory Rate - - Oxygen Saturation - - Inhaled Oxygen Concentration - - Weight 86.2 kg (190 lb) 05/16/2022 8:42 AM CARDIOTHORACIC SURGEON Height 165.1 cm (5' 5 ) 05/16/2022 8:42 AM CARDIOTHORACIC SURGEON Body Mass Index 31.62 05/16/2022 8:42 AM CARDIOTHORACIC SURGEON documented in this encounter Progress Notes * Newton Mendiola MD - 05/16/2022 9:00 AM CST Images from the original note were not included. Subjective/Objective Patient ID: Katy Sauceda is a 57 y.o. female. Chief Complaint Fatigue, Dizziness, Strabismus, Headache, and Dysphagia Fatigue Associated symptoms include fatigue and headaches. Dizziness Associated symptoms include fatigue and headaches. Headache Dysphagia Associated symptoms include fatigue and headaches. Patient here today for several new symptoms. Over the last 3-1/2 months the patient has had 4 episodes of double vision. During these episodes she noticed that her right eye has moved inward and downward. These episodes last for at least a minute and then spontaneously resolve. There are no concomitant other issues including no lateralizing we akness no difficulty speaking no numbness or other symptoms. She is also had increase in recent headaches. The headaches are unlike her previous migraines. Theyare more frequent and more intense. The patient has also had some dysphagia with difficulty swallowing. She points to the thoracic inlet Has to the place of maximum difficulty. At times she has to regurgitate or cough back on digested food. Past Surgical History: Procedure Laterality Date CHOLECYSTECTOMY COLONOSCOPY CYST REMOVAL hodgkins biopsy OTHER SURGICAL HISTORY vocal cord nodule removal PORT PLACEMENT CHEST >5 YEARS 1992 ROTATOR CUFF REPAIR 2010 THYROID SURGERY 2004 Family History Problem Relation Age of Onset Hypertension Mother Hyperlipidemia Mother Hypertension Father Hyperlipidemia Father Diabetes Father Social History Tobacco Use Smoking status: Former Packs/day: 0.50 Years: 10.00 Pack years: 5.00 Types: Cigarettes Quit date: 1999 Years since quittin.1 Smokeless tobacco: Never Substance and Sexual Activity Drug use: Yes Types: Marijuana Sexual activity: Defer Alcohol Use: Not At Risk Frequency of Alcohol Consumption: Never Average Number of Drinks: Patient does not drink Frequency of Binge Drinking: Never Immunization History Administered Date(s) Administered Influenza, Trivalent, Intramuscular 01/10/2014 Current Outpatient Medications Medication Sig aspirin 81 mg tablet Take 81 mg by mouth daily atorvastatin (LIPITOR) 40 mg tablet Take 40 mg by mouth daily buPROPion XL (WELLBUTRIN XL) 300 mg 24 hr tablet Take 300 mg by mouth daily cetirizine (ZyrTEC) 10 mg tablet Take 10 mg by mouth daily cholecalciferol (VITAMIN D-3) 50,000 unit capsule Take 50,000 Units by mouth once a week cyanocobalamin, vitamin B-12, (VITAMIN B-12 ORAL) Take by mouth daily divalproex DR (DEPAKOTE) 125 mg EC tablet Take 125 mg by mouth 2 (two) times a day ergocalciferol (VITAMIN D) 50,000 unit capsule TAKE 1 CAPSULE (50,000 UNITS TOTAL) BY MOUTH ONCE A WEEK FRIDAYS famotidine (PEPCID) 40 mg tablet daily Farxiga 10 mg tablet TAKE 1 TABLET BY MOUTH EVERY DAY fluticasone propionate (FLONASE) 50 mcg/actuation nasal spray Administer 1 spray into each nostril daily (Patient not taking: Reported on 05/16/2022) isosorbide mononitrate ER (IMDUR) 30 mg 24 hr tablet Take 30 mg by mouth daily loratadine (CLARITIN) 10 mg tablet Take 10 mg by mouth daily (Patient not taking: Reported on 12/16/2021) losartan (COZAAR) 50 mg tablet Take 50 mg by mouth daily metoprolol XL (TOPROL-XL) 100 mg 24 hr tablet TAKE 1 TABLET BY MOUTH EVERY DAY ondansetron (ZOFRAN) 4 mg tablet TAKE 1 TABLET BY MOUTH EVERY 8 HOURS NEEDED FOR NAUSEA AND VOMITING pantoprazole DR (PROTONIX) 40 mg EC tablet daily spironolactone (ALDACTONE) 25 mg tablet TAKE 1 TABLET BY MOUTH EVERY DAY Review of Systems Constitutional: Positive for fatigue. Neurological: Positive for dizziness and headaches. Patient Vital Signs for the past 24 hrs: BP Pulse Height Weight 05/16/22 0842 122/69 82 165.1 cm (5' 5 ) 86.2 kg (190 lb) Wt Readings from Last 3 Encounters: 05/16/22 86.2 kg (190 lb) 03/03/22 86.8 kg (191 lb 6.4 oz) 12/16/21 87.5 kg (193 lb) Physical Exam Vitals and nursing note [...] Mental status is at baseline. Cranial Nerves: Cranial nerve deficit (? subtle right lateral rectus palsy) present. Motor: No weakness. Deep Tendon Reflexes: Reflexes normal. Psychiatric: Mood and Affect: Mood normal. Thought Content: Thought content normal. Assessment/Plan Diagnoses and all orders for this visit: Mixed hyperlipidemia (E78.2) (Primary) - POCT lipid panel Prediabetes (R73.03) Comments: check labs, may need additional meds? ozempic Orders: - POCT glucose Diplopia (H53.2) Other complicated headache syndrome (G44.59) Comments: with visual issues, etc, check mri brain Pharyngoesophageal dysphagia (R13.14) Comments: check barium swallow Labs Lab Results Component Value Date HGBA1C 6.2 08/27/2021 Lab Results Component Value Date POCCHOL 130 05/16/2022 Lab Results Component Value Date POCHDL 25 05/16/2022 POCHDL 30 08/27/2021 POCHDL 31 11/22/2020 Lab Results Component Value Date POCLDL 64 05/16/2022 POCLDL 68 08/27/2021 POCLDL 166 11/22/2020 Lab Results Component Value Date POCTRIG 205 05/16/2022 POCTRIG 130 08/27/2021 POCTRIG 176 11/22/2020 No results found for: A1C Lab Results Component Value Date CREATININE 1.02 (H) 08/27/2021 CREATININE 0.7 06/03/2021 CREATININE 0.73 01/17/2021 Lab Results Component Value Date COLORU Yellow 01/10/2021 CLARITYU Turbid (A) 01/10/2021 GLUCOSEUR 2+ (A) 01/10/2021 BILIRUBINUR Negative 01/10/2021 KETONESU Negative 01/10/2021 SPECGRAVU 1.029 01/10/2021 BLOODUR Trace (A) 01/10/2021 UROBILINOGEN <2.0 01/10/2021 Newton Mendiola MD IOTHORACIC SURGEON documented in this encounter Plan of Treatment Scheduled Procedures Name Priority Associated Diagnoses Date/Ti me ESOPHAGOGASTRODUODENOSCOPY Nausea Colon cancer screening COLONOSCOPY Nausea Colon cancer screening documented as of this encounter Procedures Procedure Name Priority Date/Time Associated Diagnosis Comments ALBUMIN, RANDOM URINE WITHOUT CREATININE Routine 05/16/2022 9:34 AM CARDIOTHORACIC SURGEON Mixed hyperlipidemia Prediabetes Diplopia Other complicated headache syndrome TSH Routine 05/16/2022 9:34 AM CARDIOTHORACIC SURGEON Mixed hyperlipidemia Prediabetes Diplopia Other complicated headache syndrome COMPREHENSIVE METABOLIC PANEL Routine 05/16/2022 9:34 AM CARDIOTHORACIC SURGEON Mixed hyperlipidemia Prediabetes Diplopia Other complicated headache syndrome POCT GLUCOSE 41291 Routine 05/16/2022 9: 15 AM CARDIOTHORACIC SURGEON Prediabetes POCT LIPID PANEL Routine 05/16/2022 9:15 AM CARDIOTHORACIC SURGEON Mixed hyperlipidemia documented in this encounter Results * MRI Brain W WO Contrast (05/23/2022 8:19 PM CARDIOTHORACIC SURGEON) Anatomical Region Laterality Modality Head and Neck N/A Magnetic Resonan ce 05/24/2022 7:43 AM CARDIOTHORACIC SURGEON Impressions 05/24/2022 9:10 AM CARDIOTHORACIC SURGEON 1. ??No findings to explain the patient's symptoms. Dictated by: Sulaiman Elmore M.D. The radiology attending physician has personally reviewed this study, and had reviewed and/or edited this written report and agrees with it. Electronically signed by: Dejan Ibarra M.D. Narrative 05/24/2022 9:10 AM CARDIOTHORACIC SURGEON EXAMINATION: Magnetic resonance imaging (MRI) of the [...] it. Electronically signed by: Dejan Ibarra M.D. us Newton Mendiola MD [facility] [place] PROCEDURES Final Resu lt * TSH (05/16/2022 9:34 AM CARDIOTHORACIC SURGEON) [facility] TSH 2.330 0.450 - 4.500 uIU/mL [facility] - 01 Blood 05/16/2022 9:34 AM CARDIOTHORACIC SURGEON 05/16/2022 Narrative [facility] - 05/17/2022 4:08 AM CARDIOTHORACIC SURGEON Performed at: ??01 - [facility] [address] ??[id number] Freight Car Loader: Vernon Connell PhD, Phone: ??[phone] Newton Mendiola MD LAB BLOOD ORDERABLES Final Re sult Performing Organization Address [facility] de Phone Number [facility] - * Microalbumin, urine, random (05/16/2022 9:34 AM CARDIOTHORACIC SURGEON) Pathologist [facility] Microalbumin, ur 3.3 Not Estab. ug/mL [facility] - 01 Urine 05/16/2022 9:34 AM CARDIOTHORACIC SURGEON 05/16/2022 Narrative [facility] - 05/17/2022 4:08 AM CARDIOTHORACIC SURGEON Performed at: ??01 - [facility] ??[id number] Freight Car Loader: Vernon Connell PhD, Phone: ??[phone] Newton Mendiola MD LAB URINE ORDERABLES Final Re sult Performing Organization Address [facility] Co de Phone Number [facility] - * (ABNORMAL) Comprehensive metabolic panel (05/16/2022 9:34 AM CARDIOTHORACIC SURGEON) Pathologist [facility] Glucose 139(H) 70 - 99 mg/dL [facility] - 01 BUN 22 6 - 24 mg/dL [facility] - 01 Creatinine, Serum 0.87 0.57 - 1.00 mg/dL [facility] - 01 eGFR 78 >59 mL/min/1.7 3 [facility] - 01 BUN/creat ratio 25(H) 9 - 23 [facility] - 01 Sodium 140 134 - 144 mmol/L [facility] - 01 Potassium, sr 4.6 3.5 - 5.2 mmol/L [facility] - 01 Chloride 104 96 - 106 mmol/L [facility] - 01 CO2 18(L) 20 - 29 mmol/L [facility] - 01 Calcium 9.8 8.7 - 10.2 mg/dL [facility] - 01 Protein, sr 7.1 6.0 - 8.5 g/dL [facility] - 01 Albumin 4.6 3.8 - 4.9 g/dL [facility] - 01 Globulin, Total 2.5 1.5 - 4.5 g/dL [facility] - 01 A/G Ratio 1.8 1.2 - 2.2 [facility] - 01 Bilirubin, Total 0.3 0.0 - 1.2 mg/dL [facility] - 01 Alk phos 91 44 - 121 IU/L [facility] - 01 AST 16 0 - 40 IU/L [facility] - 01 ALT 23 0 - 32 IU/L [facility] - 01 Blood 05/16/2022 9:34 AM CARDIOTHORACIC SURGEON 05/16/2022 Narrative [facility] - 05/17/2022 4:08 AM CARDIOTHORACIC SURGEON Performed at: ??01 - [facility] [address] ??[id number] Freight Car Loader: Vernon Connell PhD, Phone: ??[phone] Nweton Mendiola MD LAB BLOOD ORDERABLES Final Re sult [facility] - 01 * POCT lipid panel (05/16/2022 9:15 AM CARDIOTHORACIC SURGEON) Cholesterol, POC 130 mg/dL HDL, POC 25 mg/dL Triglycerides, POC 205 mg/dL LDL Cholesterol POC 64 mg/dL Chol/HDL Ratio, POC 5.1 Non-HDL Cholesterol, POC 105 mg/dL Cholesterol Total, POC 130 mg/dL Capillary blood 05/16/2022 9 :15 AM CARDIOTHORACIC SURGEON us Newton Mendiola MD POINT OF CARE TEST ORDERABLES Final Result * (ABNORMAL) POCT glucose (05/16/2022 9:15 AM CARDIOTHORACIC SURGEON) Glucose Blood, POC 123 mg/dL Blood 05/16/2022 9:15 AM CARDIOTHORACIC SURGEON us Newton Mendiola MD POINT OF CARE TEST ORDERABLES Final Result documented in this encounter Visit Diagnoses Diagnosis Mixed hyperlipidemia- Primary Prediabetes Other abnormal glucose Diplopia Other complicated headache syndrome Pharyngoesophageal dysphagia Dysphagia, pharyngoesophageal phase Mixed hyperlipidemia Prediabetes Other abnormal glucose Diplopia Other complicated headache syndrome documented in this encounter Discontinued Medications Medication Sig Discontinue Reason Start Date End Da te acetaminophen (TYLENOL) 500 mg tablet Take 2 tablets (1,000 mg total) by mouth every 6 (six) hours as needed for pain Therapy completed 10/14/2021 05/16/2022 documented as of this encounter Historical Medications * This list may reflect changes made after this encounter. cetirizine (ZyrTEC) 10 mg tablet Take 1 tablet (10 mg total) by mouth daily ergocalciferol (VITAMIN D) 50,000 unit capsule TAKE 1 CAPSULE (50,000 UNITS TOTAL) BY MOUTH ONCE A WEEK Fridays04/18/2022 09/15/[address] (DEPAKOTE) 125 mg EC tablet Take 125 mg by mouth 2 (two) times a day 04/18/2022 05/20/2022 added in this encounter Care Teams Cardiac Rehab Nurse Relationship Specialty Start Date End Date Newton Mendiola MD [address] [address] PCP - General 06/09/16 Sly Cade MD [address] [address] Referring Physician Cardiology 12/07/18 documented as of this encounter
--- OUTSIDE RECORDS SUMMARY | 2024-03-18 04:59 | XMS_ITS | Encounter Summary ---
Author Organization [facility] Address [address] [place] [address] Phone Care Team Providers Care Casting Machine Set Up Operator Name Role Phone Newton Mendiola MD Primary Care Provider [phone] Sly Cade MD Unavailable [phone] Reason for Visit * Reason Comments OT Treatment * Consultation (Routine) - Closed Specialty Diagnoses / Procedures Referred By Nino fletcher Referred To Contact Occupational Therapy Diagnoses Laceration of right little finger without foreign body without damage to nail, initial encounter Tacho Sanchez MD Phone: tel: fax: [facility] (All Locations) Referral ID Status Reason Start Date Expiration Date V isits Requested Visits Authorized [id number] Closed Specialty Services Required 10/11/2021 11/10/2022 24 24 Encounter Details Date Type Department Care Team (Late st Contact Info) Description 11/06/2021 10:30 AM CDT Therapy [facility] Occupational Therapy [address] [facility] 6th [place] [address] [place] [id number] Chelsy Daugherty, OT [address] [address] Laceration of right little finger [...] on file Legal Sex Female 7:55 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 Date of onset: 09/21/21 ?? Cause of injury: cutting vegetables ?? Date of surgery: 10/14/21 ?? Surgery details: Primary FDP repair- 4 strand ?? Next MD Appointment: 11/19/21?? Patient is 15 days postop today. Subjective: It was so swollen last pm and uncomfortable that I took the Coban off last pm. She describes a nerve pain that feels like a needle being pushed in and out of the tip of her finger down tothe hand. She also reports burning pain at the volar MCP joint- these are frequent. There is also adeep bone pain that is on the ulnar aspect of her SF. She states that she removed the overnight nathan n, heated and then did exercises, then wrapped before therapy. [x] Mental health status discussed Frustrated with nerve pain and continued swelling Pain: 04/25 today with tylenol on board. Objective: Sent an email to Emperatriz and Dr. Sanchez requesting something for nerve pain? Circumference:- Right SF- P1- 6.5 PIP- 6.0 P2- 5.4 DIP- 4.8?? Small finger flexion arom (measured during place and hold): Mp: 70 Pip: 65 Dip: 3 Active protected pip extension: -11 FDP intact- can actively flex Treatment provided: - light debridement of scab and dry skin performed today - Joint mob with traction and lateral mobs to increase synovial fluid movement in joint spaces of PIP and DIP joints. - Scar massage manually before and after debridement; much more comfortable after debridement. - PROM - small finger composite flexion, isolated joint flexion - Initiated FDS glides for all right digits to increase glide (in wrist slight flexion) - synergistic wrist motion (tenodesis): 5repetitions with cueing for 5 second hold each repetition - short arc half fist with cueing to initiate movement at dip joint x5 repetitions (not added to home program today) - Adjustment made to ulnar aspect of metacarpal orthosis to decrease pressure. - educated Josefina about upcoming expectations, progressions of movement and continued precautions. - hot pack x10 minutes on foam wedge for elevation, positioned in protective flexion After treatment Assessment: Josefina demonstrates adhered FDS as well as FDP. Her FDP in pulling through at the PIP joint more nowthan at the DIP joint. It is intact as she can wiggle it slightly and the tendon can be palpated.It appears she will benefit from more aggressive ROM now that she is 3.5 weeks and we know she has several adhesions. Advised to do exercises 10-12 times a day,not more and to be consistent with thisso we can adjust as appropriate. Plan: Therapy 2x weekly. Reinforce importance of regular progress and consistent home program completion for maximal outcome. Initiate hook fisting actively. Progress short arc motion as appropriate.(currently at ). Goals: Goal Status / Date Updated Due by: STG1 Verbalize understanding of pre- cautions for flexor tendon New 10/16/2021 ongoing STG2 Increase PROM to DPC all right digits Ongoing 11/06/2021 10/30/21 STG3 Active right SF active PIP joint extension -5 or less Ongoing 11/06/2021 10/30/21 ? LTG1 Pt will report readiness for discharge to [facility], gradual return to more strenuous activities with 0/10 pain and verbalize understanding of any remaining precautions Ongoing 11/06/2021 12/16/21?? Start time: 1030 End Time: 1130 REID Dietz/L, CHT documented in this encounter Plan of Treatment Scheduled Procedures Name Priority Associated Diagnoses Date/Ti me ESOPHAGOGASTRODUODENOSCOPY Nausea Colon cancer screening COLONOSCOPY Nausea Colon cancer screening documented as of this encounter Visit Diagnoses Diagnosis Laceration of right little finger without foreign body without damage to nail, subsequent encounter- Primary documented in this encounter Care Teams Casting Machine Set Up Operator Relationship Specialty Start Date End Date Newton Mendiola MD [address] [address] PCP - General 06/09/16 Sly Cade MD [address] [place] [address] Referring Physician Cardiology 12/07/18 documented as of this encounter
--- OUTSIDE RECORDS SUMMARY | 2024-03-18 04:59 | XMS_ITS | Encounter Summary ---
Author Organization [facility] Address [address] [place] [address] Phone Care Team Providers Care Program Professional Name Role Phone Newton Mendiola MD Primary Care Provider [phone] Sly Cade MD Unavailable [phone] Reason for Visit * Reason Onset Date Comments Hand Pain 11/06/2021 Encounter Details Date Type Department Care Team (Late st Contact Info) Description 11/06/2021 Telephone [facility] Orthopaedic Surgery [address] [facility] 6th [place] [address] [place] [address] Tacho Sanchez MD [address] [facility] [address] Hand Pain Social History Tobacco Use Types Packs/Day Years [...] on file Legal Sex Female 7:55 AM DAYCARE PROVIDER Gender Identity Not on file Sexual Orientation Not on file documented as of this encounter Ordered Prescriptions Prescription Sig Dispense Quantity Refills Last Filled Start Date End Date gabapentin (NEURONTIN) 300 mg capsule Take 1 capsule (300 mg total) by mouth nightly for 5 days, THEN 2 capsules (600 mg total) nightly. 55 capsule 11/06/2021 2 documented in this encounter Miscellaneous Notes * Telephone Encounter - Shivani King RN - 11/06/2021 3:51 PM CDT Received below email from Chelsy Daugherty, patient's CHT. PS is having a lot of nerve pain; burning and stabbing pain and it is keeping her from sleep and function. Edema is also a chronic problem limiting motion. Would Dr. Sanchez consider a gabapentin or a pregamblin for her? I know this isn???t typical but it is limiting her ability to participate in treatment. Her pharmacy is [facility] in [place], [place]. Please advise. Thank you. Dr. Sanchez reviewed message and is agreeable to a low dose of Neurontin for the patient. Called and discussed with the patient. She is agreeable to trying the new medication. She was made aware that it can make her drowsy and to not stop the medication abruptly. She verbalizes understanding. New prescription Eprescribed to the patient's pharmacy. documented in this encounter Plan of Treatment Scheduled Procedures Name Priority Associated Diagnoses Date/Ti me ESOPHAGOGASTRODUODENOSCOPY Nausea Colon cancer screening COLONOSCOPY Nausea Colon cancer screening documented as of this encounter Visit Diagnoses Not on filedocumented in this encounter Care Teams Program Professional Relationship Specialty Start Date End Date Newton Mendiola MD [address] [address] PCP - General 06/09/16 Sly Cade MD [address] [address] Referring Physician Cardiology 12/07/18 documented as of this encounter
--- OUTSIDE RECORDS SUMMARY | 2024-03-18 04:59 | XMS_ITS | Encounter Summary ---
Author Organization [facility] Address [address] [place] [address] Phone Care Team Providers Care Grinding Machine Operator Name Role Phone Newton Mendiola MD Primary Care Provider [phone] Sly Cade MD Unavailable [phone] Encounter Details Date Type Department Care Team (Late st Contact Info) Description 10/17/2021 Telephone [facility] Occupational Therapy [address] [facility] 6th [place] [address] [place] [phone] Chelsy Daugherty, OT [address] [address] Social History Tobacco Use Types Packs/Day Years [...] on file Legal Sex Female 7:55 AM MEETING COORDINATOR Gender Identity Not on file Sexual Orientation Not on file documented as of this encounter Miscellaneous Notes * Telephone Encounter - Chelsy Daugherty OT - 10/17/2021 4:24 PM CDT Images from the original note were not included. documented in this encounter Plan of Treatment Scheduled Procedures Name Priority Associated Diagnoses Date/Ti me ESOPHAGOGASTRODUODENOSCOPY Nausea Colon cancer screening COLONOSCOPY Nausea Colon cancer screening documented as of this encounter Visit Diagnoses Not on filedocumented in this encounter Care Teams Grinding Machine Operator Relationship Specialty Start Date End Date Newton Mendiola MD [address] [address] PCP - General 06/09/16 Sly Cade MD [address] [address] Referring Physician Cardiology 12/07/18 documented as of this encounter
--- OUTSIDE RECORDS SUMMARY | 2024-03-18 04:59 | XMS_ITS | Encounter Summary ---
Author Organization [facility] Address [address] [place] [address] Phone Care Team Providers Care Forestry Scientist Name Role Phone Newton Mendiola MD Primary Care Provider [phone] Sly Cade MD Unavailable [phone] Reason for Visit * Reason Comments OT Treatment * Consultation (Routine) - Closed Specialty Diagnoses / Procedures Referred By Nino fletcher Referred To Contact Occupational Therapy Diagnoses Laceration of right little finger without foreign body without damage to nail, initial encounter Tacho Sanchez MD Phone: tel: fax: [facility] Occupational [facility] [address] [place] [address] 6[address] [place] [address] [place] [address] Phone: tel: fax: Referral ID Status Reason Start Date Expiration Date V isits Requested Visits Authorized [id number] Closed Specialty Services Required 11/19/2021 12/19/2022 24 24 Encounter Details Date Type Department Care Team (Late st Contact Info) Description 12/03/2021 10:30 AM CDT Therapy [facility] Occupational Therapy [address] [place] [address] 6th [place] [address] [place] [address] Chelsy Daugherty, OT [address] [id number] Laceration of right little finger without foreign [...] on file Legal 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 Yesterday when she was doing the marble exercise, she felt adifferent pulling on the dorsum over the DIP joint that she had never felt. Still has nerve feeling. The gabepentin helps. The sensation on the ulnar aspect is changing. She describes more sensation and less numbness. She is now typing and that is going fairly well. [x] Mental health status discussed After last week, it was relaxed. The lump of scar is improving Pain: 0/10 without any pain meds.; with AROM- 4/10 Objective: DOS- 10/14/21 7 weeks and 1 day s/p No measurements this date. Treatment provided: - Paraffin prior to treatment for 10' to increase tissue extensibility. - Scar mobilization to palm and small finger scar sites; attempted IASTM and tolerated this date except over the medial incision. Also IASTMto volar forearm. - PROM - small finger composite flexion with emphasis on dip flexion. Now to do over the table edgefor PROM flexion and resisted extension on the way up for glide and strength and mostly ROM. - Rolling on different size dowels for extension, then intrinsic minus for DIP joint active flexion. - Initiated BTE: 181,504,601 and 302 for spontaneous AROM and endurance (minimal resistance). - Issued 2 additional size D tubigrip sleeves per Josefina' request. - New digi-sleeve issued (S/M). - MHP's times 5' after treatment followed by milking massage and placement of new digi-sleeve. Assessment: Josefina strongly feels that her scar tissue is changing and the tendon is trying to pull through more. The scar tissue is softening with IASTM well and we will continue. CUS at 8 weeks s/p prior to activities may also be helpful. We talked about more spontaneous use and keeping from trying too hard when attempting to pull through. Plan: Decrease to 1x weekly in 1-2 weeks Take full measurements. CUS? Warm rice next visit, continue weighted BTE and functional activities Goals: Goal Status / Date Updated Due by: [email or web address] Verbalize understanding of pre- cautions for flexor tendon New 10/16/2021 ongoing STG2 Increase PROM to DPC all right digits To palm but not DPC as of 12/03/2021 met 11/13/21 STG3 Active right SF active PIP joint extension -5 or less Met 12/03/2021 Met 11/19/21 LTG1 Pt will report readiness for discharge to [facility], gradual return to more strenuous activities with 0/10 pain and verbalize understanding of any remaining precautions Ongoing 12/03/2021 12/16/21 Start time: 1025 End Time: 1140 Chelsy Daugherty OTR/Rikki, CHT documented in this encounter Plan of Treatment Scheduled Procedures Name Priority Associated Diagnoses Date/Ti me ESOPHAGOGASTRODUODENOSCOPY Nausea Colon cancer screening COLONOSCOPY Nausea Colon cancer screening documented as of this encounter Visit Diagnoses Diagnosis Laceration of right little finger without foreign body without damage to nail, subsequent encounter- Primary documented in this encounter Care Teams Forestry Scientist Relationship Specialty Start Date End Date Newton Mendiola MD [address] [address] PCP - General 06/09/16 Sly Cade MD [address] [address] Referring Physician Cardiology 12/07/18 documented as of this encounter
--- OUTSIDE RECORDS SUMMARY | 2024-03-18 04:59 | XMS_ITS | Encounter Summary ---
Author Organization [facility] Healthcare Address [address] [place] [address] Care Team Providers Care Floor Finisher Name Role Phone Newton Mendiola MD Primary Care Provider Sly Cade MD Unavailable [phone] Reason for Visit * Auth/Cert Specialty Diagnoses / Procedures Referred By Contac t Referred To Contact Diagnoses Laceration of right little finger, initial encounter Laceration of right little finger, initial encounter [S61.216A] Procedures NM REPAIR FLEXOR TENDON,HAND,W/O GRAFT,EA REPAIR TENDON - FINGER small finger flexor digitorum profundus Referral ID Status Reason Start Date Expiration Date Visits Re quested Visits Authorized [id number] 1 1 Encounter Details Date Type Department Care Team (Late st Contact Info) Description 10/14/2021 12:01 PM CDT Anesthesia Event [facility] Operating Room [address] [place] [address] Darek Eubanks MD [address] [facility] [address] [place] [address] Anesthesia Record Procedure Summary Procedure Name Responsible Anesthesiologist Anesthesia Start Time Anesthesia Stop Time REPAIR TENDON - FINGER small finger flexor digitorum profundus (Right: Fingers) Darek Eubanks MD 10/14/21 1201 10/14/21 1338 Events Date Time Event Comment 10/14/2021 1107 In Preop 1139 Start Supplemental O2 1139 Time out - Regional 1139 An Block Induction The patie nt was reevaluated immediately before moderate or deep sedation and before anesthesia induction. 1143 Block Placed 1201 An Start 1204 In Room 1205 An Start Data 1210 An Induction The patient was reevaluated immediately before moderate or deep sedation use and before anesthesia induction. 1212 An Intubation 1213 Anesthesia Ready 1215 HOB turned 90 degrees 1226 Proc Start 1226 Incision Start 1324 Proc Fin 1329 An Extubation 1333 Out of Room 1335 an stop data 1338 Handoff to RN I completed my handoff to the receiving nurse during which we: 1. Patient identified 2. Responsible provider identified 3. Pertinent medical history reviewed 4. Procedure type and surgical course discussed 5. Intraoperative anesthetic management and any significant issues discussed 6. Expectations and concerns for postop period discussed 7. Questions solicited from receiving nurse 8. Patient disposition at the time of handoff: PACU 1338 An Stop Meds Name Total midazolam PF 4 mg fentaNYL 200 mcg bupivacaine 0.5 % PF 10 mL propofol 120 mg succinylcholine 80 mg ceFAZolin 2,000 mg Lactated Ringer's (LR) infusion 1,000 mL * Agents Name O2% N2O O2 Air Isoflurane Inspired Isoflurane * Blood No blood administrations on file. Lines, Drains, and Airways Type Details Placement Removal Peripheral IV Placement Date: 10/14/21; Placement Time: 1147; Catheter Size: 22 G; Orientation: Left, Posterior; Location: Forearm; Site Prep: Chlorhexidine; Technique: Anatomical landmarks; Patient Tolerance: Tolerated well; Removal Date: 10/14/21; Removal Time: 1641 10/14/21 1147 by Eva Quintanilla RN 10/14/21 1641 by Breanne Soriano RN ETT Placement Date: 10/14/21; Placement Time: 1224 (created via procedure documentation); Mask Ventilation: 2; Technique: Direct laryngoscopy; Type: ETT - single; Single Lumen Tube Size: 7 mm; Cuffed: Yes; Laryngoscope: Sarah; Blade Size: 3; Location: Oral; Grade View: Grade IIb; Insertion Attempts: 1; Placement Verification: Auscultation, Capnometry; Removal Date: 10/14/21; Removal Time: 1329 10/14/21 1224 by Kostas Baker, PHU 10/14/21 1329 by Kostas Baker, GLASS BLOWER RETIRED Surgical Site 08/01/22; 1237; Ri ght; Hand; right small finger; 02/16/24 (Retired LDA, Removed/Completed by [employer] with LDA Utility); 1213 (Retired LDA, Removed/Completed by [employer] with LDA Utility) 10/14/21 1237 by Arminda Kulkarni RN 02/16/24 1213 by Discharge Provider, Automatic documented in this encounter Social History Tobacco [...] and Family Not on file 2021 Attends [employer] Not on file 01/16 Active Member [...] place to sleep or slept in a fci (including now)? 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 OR POD 2 ROOM 201 / [facility] OR POD 2 Anesthesia Start: 1201 Anesthesia Stop: 1338 Procedure: REPAIR TENDON - FINGER small finger flexor digitorum profundus (Right Fingers) Diagnosis: Laceration of right little finger, initial encounter (Laceration of right little finger, initial encounter [S61.216A]) Surgeons: Tacho Sanchez MD Responsible Provider: Darek Eubanks MD Anesthesia Type: general, PNB - single shot, regional for postop pain per surgeon request ASA Status: 3 Anesthesia Type: general, PNB - single shot, regional for postop pain per surgeon request Last vitals BP 141/74 Pulse 90 Temp 36.1 ??C (97 ??F) (Temporal) Resp 12 SpO2 94% Anesthesia Post Evaluation Patient location during evaluation: PACU Patient participation: complete - patient participated Level of consciousness: fully awake Pain score: 2 Pain management: satisfactory to patient Airway patency: adequate Evidence of recall: no Cardiovascular status: acceptable Respiratory status: acceptable Hydration status: acceptable Pt is: normothermic Nausea/Vomiting status: none No complications documented. * Anesthesia Procedure Notes - Kostas Baker CRNA - 10/14/2021 12:23 PM CDTAssociated Order(s): Airway Airway Patient location: OR Urgency: elective Indications for airway management: anesthesia Difficult airway: no Staff: Supervising provider: Darek Eubanks MD Placed by: GLASS BLOWER: Kostas Baker CRNA Emergent airway documentation: Risks and benefits discussed: yes Consent obtained: yes Consent given by: patient Airway prep: Preoxygenated: yes Patient position: sniffing Mask difficulty assessment: 2 - vent by mask + OA or adjuvant Spontaneous ventilation during airway: absent Sedation level during airway: GA Final airway details: Final airway type: endotracheal airway Tube type: ETT ETT size: 7.0 mm Cuffed: yes Technique used for successful ETT placement: direct laryngoscopy Insertion site: oral Blade type: Sarah Blade size: 3 Cormack-Lehane (direct): grade IIb - view of arytenoids or posterior of glottis only Cuff volume: 7 mL Cuff inflated with: air ETT to lips: 21 cm Placement verified by: auscultation and CO2 detection Airway secured with: silk tape Number of attempts: 1no * Anesthesia Procedure Notes - Darek Eubanks MD - 10/14/2021 11:59 AM CDTAssociated Order(s): Peripheral Block Images from the original note were not included. Peripheral Block Patient location during procedure: pre-op holding Reason for block: post-op pain management per surgeon request Ultrasound image in chart or stored: yes Block type: single shot Laterality: right Block type: ulnar nerve block - at forearm Staff: Supervising provider: Darek Eubanks MD Placed by: Fellow: Bhupinder Manzo MD Procedure prep: Preprocedure checklist: patient identified, procedure contraindications assessed, site marked, procedure consent, surgical consent, IV checked, risks, benefits and alternatives discussed, monitors and equipment checked and timeout performed Patient position: head of bed elevated Procedure performed while patient: sedate with meaningful contact Monitoring: ECG, oximetry and blood pressure Supplemental O2: nasal cannula Prep solution: chlorhexidine/alcohol PPE: provider hat/mask, sterile gloves and sterile probe cover and gel Peripheral nerve block: Technique: ultrasound guided Needle type: insulated and short-bevel Needle gauge: 22 G Needle length: 50 mm Injection assessment: injection made incrementally with constant monitoring, local visualized surrounding nerve on ultrasound, negative aspiration for heme, no paresthesias noted, see flowsheet for medication details and normal resistance to injection Assessment: Block success: full evaluation pending Events: patient tolerated procedure well with no complications * Anesthesia Preprocedure Evaluation - Darek Eubanks MD - 10/13/2021 2:50 PM CDT Images from the original note were not included. Anesthesia Evaluation Katy Sauceda is a 56 y.o. female Procedure(s): REPAIR TENDON - FINGER small finger flexor digitorum profundus Pre-Op Diagnosis Codes: * Laceration of right little finger, initial encounter [S61.216A] SUMMARY: Tachycardia present throughout the study, HR 106 bpm. LA is normal. Normal RV cavity size. LV cavity size is mildly dilated. Mild concentric LV hypertrophy. Normal aorta. LV systolic function is low normal with hypokineisis of the mid anterolateral wall. LVEF=55%. RV systolic fucntion is hyperdynamic. LV diastolic function could not be assessed. Mild AI and TR without pulmonary hypertension. No intracardiac masses or thrombi detected. Saline contrast study NEGATIVE for right to left shunt with and without Valsalva maneuver. HISTORY Past Medical History Neurological + Psychiatric history - bipolar and depression Cardiovascular + Hypertension + CHF (NICM last cards visit 07/16/21--resolved descending aortic thrombus, no CARTER or orthopnea, euvolemic and NYHA 1 symptoms f/u 6 mo) - NYHA class: I. CHF Etiology: non-ischemic. LVEF: 50-60%. + Current valvular disease - AR - mild; TR - mild. + Other arrhythmia - LBBB. PVD: resolved descending aortic thrombus. Gastrointestinal + GERD + Hiatal hernia Endocrine / Other + Cancer history Cancer type: hodgkin lymphoma. Patient Active Problem List Diagnosis ??? LV dysfunction ??? LBBB (left bundle branch block) ??? Mixed hyperlipidemia ??? Chronic insomnia ??? Cardiomyopathy (HCC) ??? Chronic systolic (congestive) heart failure (HCC) ??? Gastroesophageal reflux disease without esophagitis ??? Hypertension ??? Obesity with body mass index 30 or greater ??? Snoring ??? Systolic dysfunction ??? Insomnia ??? Prediabetes ??? Grief at loss of child ??? Allergic rhinitis ??? Dissection of thoracic aorta (CMS/HCC) (HCC) ??? Splenic infarct ??? Abdominal pain ??? Moderate recurrent major depression (HCC) ??? Laceration of right little finger, initial encounter Past Medical History: Diagnosis Date ??? Bipolar disorder (HCC) ??? CHF (congestive heart failure) (CMS/HCC) (HCC) ??? COVID-19 virus infection 01/15/2021 ??? Depression ??? GERD (gastroesophageal reflux disease) ??? Hodgkin lymphoma (HCC) 09/09/2016 ??? Hypertension ??? Irritable bowel syndrome ??? Kidney stone ??? Thyroid nodule Past Surgical History: Procedure Laterality Date ??? CHOLECYSTECTOMY ??? COLONOSCOPY ??? CYST REMOVAL hodgkins biopsy ??? OTHER SURGICAL HISTORY vocal cord nodule removal ? ? PORT PLACEMENT CHEST >5 YEARS 1992 ??? ROTATOR CUFF REPAIR 2009 ??? THYROID SURGERY 2004 OB History No obstetric history on file. Allergies Allergen Reactions ??? Codeine Other (See comments) and Vomiting Reaction: RASH;, ??? Hydrocodone Vomiting ??? Penicillin Other (See comments) Reaction: UNKNOWN, Taking? Last Dose Start Date End Date Provider aspirin 81 mg tablet -- -- ProviderNaomy MD atorvastatin (LIPITOR) 40 mg tablet 04/02/21 -- Newton Mendiola MD Take 1 tablet (40 mg total) by mouth nightly buPROPion XL (WELLBUTRIN XL) 300 mg 24 hr tablet 07/29/21 -- Newton Mendoila MD Take 1 tablet (300 mg total) by mouth every morning dapagliflozin (FARXIGA) 10 mg tablet 12/21/20 12/21/21 Matt Remy MD Take 1 tablet (10 mg total) by mouth daily Notes: Increase in dose ergocalciferol (VITAMIN D) 50,000 unit capsule 07/29/21 -- Newton Mendiola MD TAKE 1 CAPSULE (50,000 UNITS TOTAL) BY MOUTH ONCE A WEEK FRIDAYS famotidine (PEPCID) 40 mg tablet 12/17/20 12/17/21 Sheila So, Take 1 tablet (40 mg total) by mouth daily fluticasone propionate (FLONASE) 50 mcg/actuation nasal spray () 12/11/20 08/27/21 Sheila So, Administer 2 sprays into each nostril daily isosorbide mononitrate ER (IMDUR) 30 mg 24 hr tablet 08/20/20 -- Matt Remy MD TAKE 1 TABLET BY MOUTH EVERY DAY loratadine (CLARITIN) 10 mg tablet -- -- Naomy Thapa MD losartan (COZAAR) 50 mg tablet 05/24/21 -- Newton Mendiola MD Take 1 tablet (50 mg total) by mouth daily metoprolol XL (TOPROL-XL) 100 mg 24 hr tablet () 05/28/20 08/27/21 Matt Remy MD Take 1 tablet (100 mg total) by mouth daily nitrofurantoin monohydrate (MACROBID) 100 mg capsule 08/28/21 -- Naomy Thapa MD ondansetron (ZOFRAN) 4 mg tablet 07/29/21 -- Newton Mendiola MD TAKE 1 TABLET BY MOUTH EVERY 8 HOURS NEEDED FOR NAUSEA AND VOMITING pantoprazole DR (PROTONIX) 40 mg EC tablet 09/20/21 -- Newton Mendiola MD TAKE 1 TABLET BY MOUTH EVERY DAY polyethylene glycol (GoLYTELY) 236-22.74-6.74 -5.86 gram solution 09/26/21 -- Ahmet Wilde MD On 10/02 - at 6 PM drink 1/2 of jug of Nulytely. On 10/03 - at 0815 AM drink remaining 1/2 of jug of Nulytely until jug empty. Notes: Pharmacy may substitute Nulytely for brand or generic PEG 3350 4L spironolactone (ALDACTONE) 25 mg tablet 10/07/21 -- Matt Remy MD TAKE 1 TABLET BY MOUTH EVERY DAY valACYclovir (VALTREX) 1 gram tablet 06/27/21 -- Newton Mendiola MD Take 2 tabs q 12 hours x 1 day. No current facility-administered medications for this encounter. Current Outpatient Medications: ??? aspirin 81 mg tablet ??? atorvastatin (LIPITOR) 40 mg tablet ??? buPROPion XL (WELLBUTRIN XL) 300 mg 24 hr tablet ??? dapagliflozin (FARXIGA) 10 mg tablet ??? ergocalciferol (VITAMIN D) 50,000 unit capsule ??? famotidine (PEPCID) 40 mg tablet ??? fluticasone propionate (FLONASE) 50 mcg/actuation nasal spray ??? isosorbide mononitrate ER (IMDUR) 30 mg 24 hr tablet ??? loratadine (CLARITIN) 10 mg tablet ??? losartan (COZAAR) 50 mg tablet ??? metoprolol XL (TOPROL-XL) 100 mg 24 hr tablet ??? nitrofurantoin monohydrate (MACROBID) 100 mg capsule ??? ondansetron (ZOFRAN) 4 mg tablet ??? pantoprazole DR (PROTONIX) 40 mg EC tablet ??? polyethylene glycol (GoLYTELY) 236-22.74-6.74 -5.86 gram solution ??? spironolactone (ALDACTONE) 25 mg tablet ??? valACYclovir (VALTREX) 1 gram tablet Social History Tobacco Use Smoking Status Former Smoker ??? Packs/day: 0.50 ??? Years: 10.00 ??? Pack years: 5.00 ??? Types: Cigarettes ??? Quit date: 1999 ??? Years since quittin.5 Smokeless Tobacco Never Used Alcohol Use: Not At Risk ??? Frequency of Alcohol Consumption: Never ??? Average Number of Drinks: Patient does not drink ??? Frequency of Binge Drinking: Never Substance and Sexual Activity Drug Use Yes ??? Types: Marijuana Family History Problem Relation Age of Onset ??? Hypertension Mother ??? Hyperlipidemia Mother ??? Hypertension Father ??? Hyperlipidemia Father ??? Diabetes Father There were no vitals filed for this visit. PT: No results found for requested labs within last 720 hours. INR: No results found for requested labs within last 720 hours. APTT: No results found for requested labs within last 720 hours. Hgb A1C: No results found for requested labs within last 720 hours. CBC RBC: No results found for requested labs within last 720 hours. RDW: No results found for requested labs within last 720 hours. MCHC: No results found for requested labs within last 720 hours. MCH: No results found for requested labs within last 720 hours. MCV: No results found for requested labs within last 720 hours. Hct: No results found for requested labs within last 720 hours. Hgb: No results found for requested labs within last 720 hours. WBC: No results found for requested labs within last 720 hours. MPV: No results found for requested labs within last 720 hours. Platelets: No results found for requested labs within last 720 hours. RDW CV: No results found for requested labs within last 720 hours. RDW Sd: No results found for requested labs within last 720 hours. BMP Glucose: No results found for requested labs within last 720 hours. Calcium: No results found for requested labs within last 720 hours. Sodium: No results found for requested labs within last 720 hours. Potassium: No results found for requested labs within last 720 hours. CO2: No results found for requested labs within last 720 hours. Chloride: No results found for requested labs within last 720 hours. BUN: No results found for requested labs within last 720 hours. Creatinine: No results found for requested labs within last 720 hours. DOS Physical Exam Medical history, medications, and allergies reviewed. Attestation: This PAT evaluation 10/14/2021. Airway Exam: Cervical ROM: FROM Cardiovascular Exam: Rate: regular Rhythm: regular Pulmonary Exam: LCTA, bilat EENT Exam: trachea midline Skin Exam: Skin is warm. Abdominal Exam: Abdomen is soft. Current state: Patient's current state is cooperative and interactive. Anesthesia Plan ASA 3 My patient is approved for the Anesthesia Controlled Medication protocol when under care of a GLASS BLOWER Planned anesthesia: General and PNB - single shot Team communication plan: oral ET tube Upper extremity: ulnar nerve block - at forearm Induction: Induction: intravenous. Postoperative Plan: Postoperative administration opioids intended. No postoperative mechanical ventilation intended. Patient's planned disposition post procedure is Outpatient. Informed Consent: Anesthesia plan and risks discussed with patient. Consent and Attending signature: I and/or my designee have discussed the anesthesia plan, benefits, possible alternatives, parental presence at time of induction (if indicated), and clinically relevant risks that may include dental injury, unintentional awareness, and/or other complications. The patient and/or parent/legal guardian understand, and agree to proceed. All questions answered. documented in this encounter Plan of Treatment Scheduled Procedures Name Priority Associated Diagnoses Date/Ti me ESOPHAGOGASTRODUODENOSCOPY Nausea Colon cancer screening COLONOSCOPY Nausea Colon cancer screening documented as of this encounter Procedures Procedure Name Priority Date/Time Associated Diagnosis Comments NM AN PROCEDURE PLACEHOLDER Routine 10/14/2021 12:23 PM CDT NM AN ELECTIVE ENDOTRACHEAL AIRWAY Routine 10/14/2021 12:23 PM CDT NM AN PROCEDURE PLACEHOLDER Routine 10/14/2021 11:59 AM CDT documented in this encounter Results * NM AN ELECTIVE ENDOTRACHEAL AIRWAY, NM AN PROCEDURE PLACEHOLDER (10/14/2021 12:23 PM CDT) Narrative Kostas Baker CRNA - 10/14/2021 12:23 PM CDT Kostas Baker CRNA ? 10/14/2021 12:24 PM Airway Patient location: OR Urgency: elective Indications for airway management: anesthesia Difficult airway: no Staff: Supervising provider: Darek Eubanks MD Placed by: GLASS BLOWER: Kostas Baker CRNA Emergent airway documentation: Risks and benefits discussed: yes Consent obtained: yes Consent given by: patient Airway prep: Preoxygenated: yes Patient position: sniffing Mask difficulty assessment: 2 - vent by mask + OA or adjuvant Spontaneous ventilation during airway: absent Sedation level during airway: GA Final airway details: Final airway type: endotracheal airway Tube type: ETT ETT size: 7.0 mm Cuffed: yes Technique used for successful ETT placement: direct laryngoscopy Insertion site: oral Blade type: Sarah Blade size: 3 Cormack-Lehane (direct): grade IIb - view of arytenoids or posterior of glottis only Cuff volume: 7 mL Cuff inflated with: air ETT to lips: 21 cm Placement verified by: auscultation and CO2 detection Airway secured with: silk tape Number of attempts: 1no us Darek Eubanks MD ANESTHESIA ORDERABLE S Final Result * NM AN PROCEDURE PLACEHOLDER (10/14/2021 11:59 AM CDT) Narrative Darek Eubanks MD - 10/14/2021 11:59 AM CDT Darek Eubanks MD ? 10/14/2021 ??2:08 PM Peripheral Block Patient location during procedure: pre-op holding Reason for block: post-op pain management per surgeon request Ultrasound image in chart or stored: yes Block type: single shot Laterality: right Block type: ulnar nerve block - at forearm Staff: Supervising provider: Darek Eubanks MD Placed by: Fellow: Bhupinder Manzo MD Procedure prep: Preprocedure checklist: patient identified, procedure contraindications assessed, site marked, procedure consent, surgical consent, IV checked, risks, benefits and alternatives discussed, monitors and equipment checked and timeout performed Patient position: head of bed elevated Procedure performed while patient: sedate with meaningful contact Monitoring: ECG, oximetry and blood pressure Supplemental O2: nasal cannula Prep solution: chlorhexidine/alcohol PPE: provider hat/mask, sterile gloves and sterile probe cover and gel Peripheral nerve block: Technique: ultrasound guided Needle type: insulated and short-bevel Needle gauge: 22 G Needle length: 50 mm Injection assessment: injection made incrementally with constant monitoring, local visualized surrounding nerve on ultrasound, negative aspiration for heme, no paresthesias noted, see flowsheet for medication details and normal resistance to injection Assessment: Block success: full evaluation pending Events: patient tolerated procedure well with no complications us Bhupinder Manzo MD ANESTHESIA ORDERABLES Arlen l Result documented in this encounter Visit Diagnoses Not on filedocumented in this encounter Administered Medications Inactive Administered Medications - up to 3 most recent administrations Medication Order MAR Action Action Date Dose Rate Site bupivacaine (MARCAINE) 0.5 % (5 mg/mL) preservative free injection other, As needed, Starting on Thu10/14/21 at 1143, Anesthesia Intra-op Given 10/14/2021 11:43 AM CDT 10 mL ceFAZolin (ANCEF) injection intravenous, Administer over 3 Minutes, As needed, Starting on Thu10/14/21 at 1210, Anesthesia Intra-op Given 10/14/2021 12:10 PM CDT 2,000 mg fentaNYL (SUBLIMAZE) preservative free injection intravenous, As needed, Starting on Thu10/14/21 at 1139, Anesthesia Intra-op Given 10/14/2021 12:10 PM CDT 100 mcg Given 10/14/2021 11:39 AM CDT 100 mcg Lactated Ringer's (LR) infusion 30 mL/hr, intravenous, Continuous, Starting on Thu10/14/21 at 1200, Pre-Op New Bag 10/14/2021 1:26 PM CDT New Bag 10/14/2021 11:35 AM CDT midazolam (VERSED) 1 mg/mL preservative free injection intravenous, Administer over 2 Minutes, As needed, Starting on Thu10/14/21 at 1139, Anesthesia Intra-op Given 10/14/2021 12:02 PM CDT 2 mg Given 10/14/2021 11:39 AM CDT 2 mg propofoL (DIPRIVAN) 10 mg/mL IV intravenous, As needed, Starting on Thu10/14/21 at 1210, Anesthesia Intra-op Given 10/14/2021 12:10 PM CDT 120 mg succinylcholine (ANECTINE) injection intravenous, As needed, Starting on Thu10/14/21 at 1211, Anesthesia Intra-op Given 10/14/2021 12:11 PM CDT 80 mg documented in this encounter Care Teams Floor Finisher Relationship Specialty Start Date End Date Newton Mendiola MD [address] [facility] [address] [place] [id number] PCP - General 06/09/16 Sly Cade MD [address] [address] Referring Physician Cardiology 12/07/18 documented as of this encounter
--- OUTSIDE RECORDS SUMMARY | 2024-03-18 04:59 | XMS_ITS | Encounter Summary ---
Author Organization [facility] Address [address] [place] [address] Phone Care Team Providers Care Global Chief Experience Officer Name Role Phone Newton Mendiola MD Primary Care Provider [phone] Sly Cade MD Unavailable [phone] Reason for Visit * Consultation (Routine) - Closed Specialty Diagnoses / Procedures Referred By Nino fletcher Referred To Contact Occupational Therapy Diagnoses Laceration of right little finger without foreign body without damage to nail, initial encounter Tacho Sanchez MD Phone: tel: fax: [facility] Occupational Therapy [address] [place] [address] 6th [place] [address] [place] [address] Phone: tel: fax: Referral ID Status Reason Start Date Expiration Date V isits Requested Visits Authorized [id number] Closed Specialty Services Required 11/19/2021 12/19/2022 24 24 Encounter Details Date Type Department Care Team (Late st Contact Info) Description 01/02/2022 10:[address] 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 She is having burning sensation, but it isn't as bad as it was before. She noticed significant improvement in her scar approximately 3 days after her last session - she thinks ultrasound helped Patient scrubbed and washed her kayak, went kayaking with , she is also icing She is wrapping her finger around her steering wheel and using the heat function to warm it [] Mental health status discussed Pain: 0/10 Objective: DOS- 10/14/21 11.5 weeks postop AROM right small finger: Mp: 0/91 Pip: - Dip: 0/0 Category Development Manager strength (#2): Right: 48 Left: 65 Blocked dip flexion 5 degrees Treatment provided: Paraffin with coban wrap to digit flexion - including dip joint Continuous US, 3.3 mhz, .5 w/cm2 x5 minutes to scar sites -scar mobilization, IASTM Joint blocking x2 sets of 10 repetitions- added to home program Hand helper with 1 yellow band x15 repetitions - issued for use at home Soft yellow putty for frozen meat cutter and resisted hook fist Assessment: Patient continues to demonstrate decreased pull through of fdp. Scar adherence appears to be primary factor. Progressed joint blocking and added to home program to complete gently - this is currentlythe only way she achieves active flexion. Patient appears to be doing well being off of gabapentin.Also progressed home program include join blocking and use of hand helperfor initiation of movementwith dip. Plan: 1x week x5 weeks Consider NMES, Blocking orthosis holding MP in extension for improved active ip flexion? Goals: STG1: Verbalize understanding of precautions for [...] will report readiness for discharge to [facility], gradual return to more strenuous activities with 0/10 pain and verbalize understanding of any remaining precautions - ongoing - due by 01/12/22 (new date) LTG2: Patient will type for 2 hours without pain - new goal 12/10/21; to be met by 01/12/22 Start time: 1030 End Time: 1130 Parul MATHEWS/L, CHT documented in this encounter Plan of Treatment Scheduled Procedures Name Priority Associated Diagnoses Date/Ti me ESOPHAGOGASTRODUODENOSCOPY Nausea Colon cancer screening COLONOSCOPY Nausea Colon cancer screening documented as of this encounter Visit Diagnoses Diagnosis Laceration of right little finger without foreign body without damage to nail, subsequent encounter- Primary documented in this encounter Care Teams Global Chief Experience Officer Relationship Specialty Start Date End Date Newton Mendiola MD [address] [address] PCP - General 06/09/16 Sly Cade MD [address] [place] [address] Referring Physician Cardiology 12/07/18 documented as of this encounter
--- OUTSIDE RECORDS SUMMARY | 2024-03-18 04:59 | XMS_ITS | Encounter Summary ---
Author Organization [facility] [place] [facility] Address [address] [place] [address] Care Team Providers Care Railroad Operating Engineer Name Role Phone Newton Mendiola MD Primary Care Provider [phone] Sly Cade MD Unavailable [phone] Reason for Visit * Reason Comments Abdominal Pain Encounter Details Date Type Department Care Team (Late st Contact Info) Description 12/16/2021 11:15 AM CDT Office Visit [facility] [address] [facility] [address] [place] [address] Newton Mendiola MD [address] [facility] [address] [place] [address] LV dysfunction (Primary Dx); Mixed hyperlipidemia; Primary hypertension; Grief at loss of child Social History Tobacco Use Types Packs/Day Years [...] on file 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 Gender Identity Not on file Sexual Orientation Not on file documented as of this encounter Last Filed Vital Signs Vital Sign Reading Time Taken Comments Blood Pressure 151/87 12/16/2021 11:33 AM CDT Pulse 100 12/16/2021 11:33 AM CDT Temperature - - Respiratory Rate - - Oxygen Saturation - - Inhaled Oxygen Concentration - - Weight 87.5 kg (193 lb) 12/16/2021 11:33 AM CDT Height 165.1 cm (5' 5 ) 12/16/2021 11:33 AM CDT Body Mass Index 32.12 12/16/2021 11:33 AM CDT documented in this encounter Progress Notes * Newton Mendiola MD - 12/16/2021 11:15 AM CDT Images from the original note were not included. Subjective/Objective Patient ID: Katy Sauceda is a 56 y.o. female. Chief Complaint Abdominal Pain HPI Patient here for evaluation of her medical problems. She has a history of left ventricular dysfunction and aortic dissection. More than a year ago she stopped taking all her medications and has been feeling reasonably well she denies chest pain or shortness of breath. She has been exercising walking up to 3 miles a day. Past Surgical History: Procedure Laterality Date CHOLECYSTECTOMY [...] Types: Cigarettes Quit date: 1999 Years since quittin.7 Smokeless tobacco: Never Substance and Sexual Activity Drug use: Yes Types: Marijuana Sexual activity: Defer Alcohol Use: Not At Risk Frequency of Alcohol Consumption: Never Average Number of Drinks: Patient does not drink Frequency of Binge Drinking: Never Immunization History Administered Date(s) Administered Influenza, Trivalent, Intramuscular 01/10/2014 Current Outpatient Medications Medication Sig acetaminophen (TYLENOL) 500 mg tablet Take 2 tablets (1,000 mg total) by mouth every 6 (six) hours as needed for pain (Patient not taking: Reported on 11/13/2021) aspirin 81 mg tablet Take 81 mg by mouth daily (Patient not taking: Reported on 12/16/2021) gabapentin (NEURONTIN) 300 mg capsule Take 1 capsule (300 mg total) by mouth nightly for 5 days, THEN 2 capsules (600 mg total) nightly. loratadine (CLARITIN) 10 mg tablet Take 10 mg by mouth daily (Patient not taking: Reported on 12/16/2021) spironolactone (ALDACTONE) 25 mg tablet TAKE 1 TABLET BY MOUTH EVERY DAY (Patient not taking: Reported on 12/16/2021) Review of Systems Constitutional: Negative for appetite [...] past 24 hrs: BP Pulse Height Weight 12/16/21 1133 151/87 100 165.1 cm (5' 5 ) 87.5 kg (193 lb) Wt Readings from Last 3 Encounters: 12/16/21 87.5 kg (193 lb) 10/03/21 84.4 kg (186 lb) 09/30/21 84.8 kg (187 lb) Physical Exam Vitals and nursing note [...] Diagnoses and all orders for this visit: LV dysfunction (I51.9) (Primary) Comments: has stopped all medication, bp is elevated here. bp at home is normal Mixed hyperlipidemia (E78.2) Primary hypertension (I10) Grief at loss of child (F43.21, Z63.4) Comments: no meds at this time Labs Lab Results Component Value Date HGBA1C 6.2 08/27/2021 No results found for: POCCHOL Lab Results Component Value Date POCHDL 30 08/27/2021 POCHDL 31 11/22/2020 Lab Results Component Value Date POCLDL 68 08/27/2021 POCLDL 166 11/22/2020 Lab Results Component Value Date POCTRIG 130 08/27/2021 POCTRIG 176 11/22/2020 No [...] Newton Mendiola MD documented in this encounter Plan of Treatment Scheduled Procedures Name Priority Associated Diagnoses Date/Ti me ESOPHAGOGASTRODUODENOSCOPY Nausea Colon cancer screening COLONOSCOPY Nausea Colon cancer screening documented as of this encounter Visit Diagnoses Diagnosis LV dysfunction- Primary Left heart failure Mixed hyperlipidemia Primary hypertension Unspecified essential hypertension Grief at loss of child documented in this encounter Discontinued Medications Medication Sig Discontinue Reason Start Date End Da te famotidine (PEPCID) 40 mg tablet Take 1 tablet (40 mg total) by mouth daily Therapy completed 12/17/2020 12/16/2021 polyethylene glycol (GoLYTELY) 236-22.74-6.74 -5.86 gram solution On 10/02 - at 6 PM drink 1/2 of jug of Nulytely. On 10/03 - at 0815 AM drink remaining 1/2 of jug of Nulytely until jug empty. Therapy completed 09/26/2021 12/16/2021 traMADoL (ULTRAM) 50 mg tablet Take 1 tablet (50 mg total) by mouth every 6 (six) hours as needed for pain Therapy completed 10/14/2021 12/16/2021 fluticasone propionate (FLONASE) 50 mcg/actuation nasal sprayIndications:Allerg ic rhinitis, unspecified seasonality, unspecified trigger Administer 2 sprays into each nostril daily Therapy completed 12/11/2020 12/16/2021 metoprolol XL (TOPROL-XL) 100 mg 24 hr tablet Take 1 tablet (100 mg total) by mouth daily 05/28/2020 12/16/2021 dapagliflozin (FARXIGA) 10 mg tabletIndications:heart failure with reduced ejection fraction Take 1 tablet (10 mg total) by mouth daily 12/21/2020 12/16/2021 atorvastatin (LIPITOR) 40 mg tablet Take 1 tablet (40 mg total) by mouth nightly 04/02/2021 12/16/2021 ondansetron (ZOFRAN) 4 mg tablet TAKE 1 TABLET BY MOUTH EVERY 8 HOURS NEEDED FOR NAUSEA AND VOMITING Therapy completed 07/29/2021 12/16/2021 valACYclovir (VALTREX) 1 gram tablet Take 2 tabs q 12 hours x 1 day. Therapy completed 06/27/2021 12/16/2021 ergocalciferol (VITAMIN D) 50,000 unit capsule TAKE 1 CAPSULE (50,000 UNITS TOTAL) BY MOUTH ONCE A WEEK FRIDAYS Therapy completed 07/29/2021 12/16/2021 buPROPion XL (WELLBUTRIN XL) 300 mg 24 hr tablet Take 1 tablet (300 mg total) by mouth every morning 07/29/2021 12/16/[address] (PROTONIX) 40 mg EC tablet TAKE 1 TABLET BY MOUTH EVERY DAY Therapy completed 09/20/2021 12/16/2021 losartan (COZAAR) 50 mg tablet TAKE 1 TABLET BY MOUTH EVERY DAY 11/21/2021 12/16/2021 isosorbide mononitrate ER (IMDUR) 30 mg 24 hr tablet TAKE 1 TABLET BY MOUTH EVERY DAY 12/03/2021 12/16/2021 documented as of this encounter Care Teams Railroad Operating Engineer Relationship Specialty Start Date End Date Newton Mendiola MD [address] [address] PCP - General 06/09/16 Sly Cade MD [address] [address] Referring Physician Cardiology 12/07/18 documented as of this encounter
--- OUTSIDE RECORDS SUMMARY | 2024-03-18 04:59 | XMS_ITS | Encounter Summary ---
Author Organization [facility] Address [address] [place] [address] Phone Care Team Providers Care Hemmer Lockstitch Name Role Phone Newton Mendiola MD Primary Care Provider [phone] Sly Cade MD Unavailable [phone] Reason for Visit * Reason Comments OT Treatment * Consultation (Routine) - Closed Specialty Diagnoses / Procedures Referred By Nino fletcher Referred To Contact Occupational Therapy Diagnoses Laceration of right little finger without foreign body without damage to nail, initial encounter Tacho Sanchez MD Phone: tel: fax: [facility] (All Locations) Referral ID Status Reason Start Date Expiration Date V isits Requested Visits Authorized [id number] Closed Specialty Services Required 10/11/2021 11/10/2022 24 24 Encounter Details Date Type Department Care Team (Late st Contact Info) Description 10/18/2021 10:30 AM CDT Therapy [facility] Occupational Therapy [address] [facility] 6th [place] [address] [place] [id number] Cristal Stiles, OT [address] [address] Laceration of right little finger [...] and Family Not on file 2021 Attends [employer] Services Not on file 01/16 Active Member [...] on file 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 Date of onset: 09/21/21 ?? Cause of injury: cutting vegetables ?? Date of surgery: 10/14/21 ?? Surgery details: Primary FDP repair- 4 strand ?? Next MD Appointment: 10/22/21?? Subjective: Patient reports that pain and swelling are slightly improved from yesterday, but sonali was unable to perform exercises yesterday due to pain. She is unable to take medication other than Tylenol and reports that pain continues to be an issue in home program completion. Patient is 4 days postop today. [x] Mental health status discussed Details: frustrated with postsurgical course Pain: 4/10 with tylenol, increases to 7/10 after therapy as tylenol is wearing off. Of note, patient cannot take ibuprofen or other pain medications. Objective: Circumference:- Right SF- P1- 7 PIP- 6.3 P2- 5.7 DIP- 5.1 Passive extension of right SF PIP joint -25 PROM pip flexion not tested Ten test (right): 4 on ulnar palm 0 distal phalanx of small finger 2-3 small finger p1 and p2 ?? Treatment provided: -edema management via gentle retrograde massage and manual edema mobilization on foam wedge for elevation; discussed and reviewed technique for retrograde milking massage -PROM per precautions/protocol - isolated, individual joint flexion following by composite digit flexion small finger, 5-10 repetitions each - completed slowly -protected passive small finger pip extension (wrist and mp joints flexed) - patient unable to tolerate gentle stretch for more than 20 seconds. -passive composite flexion index, middle, ring fingers to increase suppleness of unaffected digits -Instructed in and applied coban wrap to digits with gentle pinch technique - reviewed with patientand spouse. Spouse will assist with applying so patient does not move her fingers actively or bend them backward -issued size E compression sleeve with review on don/doffing with assistance to maintain precautions - spouse will apply and remove -issued digit digisleeve, but patient finds this uncomfortable due to fabric against her sensitive small finger. She will bring home and use as sensitivity improves. -no incision site care as patient is 4 days postop -ice applied post treatment dorsal hand -modified orthosis to achieve neutral to slight extension of wrist Assessment: Instructed patient to return to passive range of motion exercises today as she has not completed exercises since Thursday PM due to pain. Reinforced importance of regular exercise program completionwithin pain limits, emphasizing slow, quality movements (passive only). Orthosis remolded into neutral to slight extension, which patient reports is more comfortable. Fitted with coban secured via pinch method all digits, and instructed spouse in don/doff as well as precautions to avoid active movement from Katy during don/doff. Reviewed importance of regaining small finger pip extension as well as passive digit flexion. Katy will continue icing intermittently, wearing gentle compression sleeves, and continue passive exercises per protocol. Plan: Follow up after patient's next MD visit on 10/22. She is unable to come before appointment because it is too early. Goals: Goal Status / Date Updated Due by: STG1 Verbalize understanding of pre- cautions for flexor tendon New 10/16/2021 ongoing STG2 Increase PROM to DPC all right digits Ongoing 10/18/2021 10/30/21 STG3 Active right SF active PIP joint extension -5 or less Ongoing 10/18/2021 10/30/21 ? LTG1 To be determined by primary therapist closer to home. Ongoing 10/18/2021 ?? LTG2 ? LTG3 ? Start time: 1030 End Time: 1130 Parul Gottlieb OT documented in this encounter Plan of Treatment Scheduled Procedures Name Priority Associated Diagnoses Date/Ti me ESOPHAGOGASTRODUODENOSCOPY Nausea Colon cancer screening COLONOSCOPY Nausea Colon cancer screening documented as of this encounter Visit Diagnoses Diagnosis Laceration of right little finger without foreign body without damage to nail, subsequent encounter- Primary documented in this encounter Care Teams Hemmer Lockstitch Relationship Specialty Start Date End Date Newton Mendiola MD [address] [place] [address] PCP - General 06/09/16 Sly Cade MD [address] [facility] [address] [place] [address] Referring Physician Cardiology 12/07/18 documented as of this encounter
--- OUTSIDE RECORDS SUMMARY | 2024-03-18 04:59 | XMS_ITS | Encounter Summary ---
Author Organization [facility] Address [address] [place] [address] Care Team Providers Care Occupational Health And Safety Adviser Name Role Phone Newton Mendiola MD Primary Care Provider [phone] Sly Cade MD Unavailable Encounter Details Date Type Department Care Team (Late st Contact Info) Description 05/30/2022 [facility] [address] [facility] [address] [place] [address] Newton Mendiola MD [address] [facility] [address] [place] [address] Social History Tobacco Use Types [...] and Family Not on file 2021 Attends [employer] Services Not on file 01/16 Active Member [...] on file 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 Has to get glasses * Telephone Encounter - Yudelka Daugherty MA - 05/30/2022 3:01 PM CDT ----- Message from Newton Mendiola MD sent at 05/25/2022 8:05 AM CDT ----- Mri is normal. Make sure has recent eye exam documented in this encounter Plan of Treatment Scheduled Procedures Name Priority Associated Diagnoses Date/Ti me ESOPHAGOGASTRODUODENOSCOPY Nausea Colon cancer screening COLONOSCOPY Nausea Colon cancer screening documented as of this encounter Visit Diagnoses Not on filedocumented in this encounter Care Teams Occupational Health And Safety Adviser Relationship Specialty Start Date End Date Newton Mendiola MD [address] [place] [address] [address] PCP - General 06/09/16 Sly Cade MD [address] [place] [address] [address] Referring Physician Cardiology 12/07/18 documented as of this encounter
--- OUTSIDE RECORDS SUMMARY | 2024-03-18 04:59 | XMS_ITS | Encounter Summary ---
Author Organization [facility] Address [address] [place] [address] Phone Care Team Providers Care Cell Coverer Name Role Phone Newton Mendiola MD Primary Care Provider [phone] Sly Cade MD Unavailable [phone] Reason for Visit * Reason Comments Follow-up Encounter Details Date Type Department Care Team (Late st Contact Info) Description 01/07/2022 11:30 AM CDT Office Visit [facility] Orthopaedic Surgery [address] [facility] 6th [place] [address] [place] [address] Tacho Sanchez MD [address] [facility] [address] [place] [address] Laceration of right little finger without foreign [...] and Family Not on file 2021 Attends [employer] Services Not on file 01/16 Active Member [...] on file 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 ESTABLISHED PATIENT VISIT INTERIM HISTORY Katy J Sauceda was seen in the office today. She is now 12 weeks out after flexor tendon repair in the right small finger. Quite stiff. Nothing further to do at present except discontinue therapy and discontinue splinting. I have advised her to not do any resisteds. IMPRESSION/TREATMENT PLAN See back in three months time. I am confident that we will not need to do anything operative to free her tendon up. Tacho Sanchez M.D., MSc, FR(C) Professor [facility] Orthopedics documented in this encounter Plan of Treatment Scheduled Procedures Name Priority Associated Diagnoses Date/Ti me ESOPHAGOGASTRODUODENOSCOPY Nausea Colon cancer screening COLONOSCOPY Nausea Colon cancer screening documented as of this encounter Visit Diagnoses Diagnosis Laceration of right little finger without foreign body without damage to nail, initial encounter- Primary documented in this encounter Historical Medications * This list may reflect changes made after this encounter. Medication Sig Dispense Quantity Refills Last Filled Start D ate End Date pantoprazole DR (PROTONIX) 40 mg EC tablet daily 12/19/2021 01/12/2023 added in this encounter Care Teams Cell Coverer Relationship Specialty Start Date End Date Newton Mendiola MD [address] [address] PCP - General 06/09/16 Sly Cade MD [address] [address] Referring Physician Cardiology 12/07/18 documented as of this encounter
--- OUTSIDE RECORDS SUMMARY | 2024-03-18 04:59 | XMS_ITS | Encounter Summary ---
Author Organization [facility] Address [address] [facility] [address] [place] [address] Care Team Providers Care Windows Technical Specialist Name Role Phone Newton Mendiola MD Primary Care Provider [phone] Sly Cade MD Unavailable [phone] Reason for Visit * Reason Comments Sore Throat 1 day of sore throat . She had strep last month, concerned about reinfection.B/L ear pain. No OTC meds for her sx. 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 Gender Identity Not on file Sexual Orientation Not on file documented as of this encounter Last Filed Vital Signs Vital Sign Reading Time Taken Comments Blood Pressure 154/84 07/21/2022 5:58 PM CDT Pulse 100 07/21/2022 5:58 PM CDT Temperature 36.1 ??C (97 ??F) 07/21/2022 5:58 PM CDT Respiratory Rate 18 07/21/2022 5:58 PM CDT Oxygen Saturation 97% 07/21/2022 5:58 PM CDT Inhaled Oxygen Concentration - - Weight 86.2 kg (190 lb) 07/21/2022 5:58 PM CDT Height 162.6 cm (5' 4 ) 07/21/2022 5:58 PM CDT Body Mass Index 32.61 07/21/2022 5:58 PM CDT documented in this encounter Patient Instructions * Patient Instructions* Alex Knox PA - 07/21/2022 6:00 PM CDT You may gargle with warm salt water, suck on throat lozenges, or throat sprays Use a decongestant for your congestion. You can dry up your runny nose with an antihistamine Elevate your pillow at night when you are sleeping to reduce the drainage down your throat. Please follow up with your doctor if you are not getting any better Tylenol or Motrin as needed Complete any medications as prescribed You will need to take over the counter medications Mucinex for chest congestion Sudafed for nasal/head congestion Zyrtec for nasal drainage Flonase for sinuses Dayquil/Delysm for cough Tylenol/Motrin for fever Drink plenty of fluids to stay hydrated Get plenty of rest If your symptoms worsen or you experience shortness of breath, return or go to ER. documented in this encounter Progress Notes * Alex Knox PA - 07/21/2022 6:00 PM CDT Images from the original note were not included. Subjective/Objective Patient ID: Katy Sauceda is a 57 y.o. female. Chief Complaint Sore Throat (1 day of sore throat. She had strep last month, concerned about reinfection./B/L ear pain. /No OTC meds for her sx.) 57-year-old white female with 2 day history of chills, fatigue, ear pain, postnasal drainage, sore throat, shortness of breath, vomiting, body aches and headache, she has taken no medicine for this, she has not been vaccinated for COVID, she possibly had a COVID exposure about 9 days ago, she did have strep throat 1 month ago Sore Throat Associated symptoms include ear pain, headaches, shortness of breath and vomiting. Pertinent negatives include no abdominal pain, congestion, coughing or diarrhea. Review of Systems Constitutional: Positive for chills and fatigue. Negative for appetite change, diaphoresis and fever. HENT: Positive for ear pain, postnasal drip and sore throat. Negative for congestion, facial swelling, rhinorrhea, sinus pressure, sinus pain and sneezing. Respiratory: Positive for shortness of breath. Negative for cough and wheezing. Gastrointestinal: Positive for vomiting. Negative for abdominal pain, diarrhea and nausea. Musculoskeletal: Positive for myalgias. Neurological: Positive for headaches. Physical Exam Vitals and nursing note reviewed. Constitutional: General: She is not in acute distress. Appearance: Normal appearance. HENT: Right Ear: Hearing, tympanic membrane, ear canal and external ear normal. Left Ear: Hearing, tympanic membrane, ear canal and external ear normal. Nose: No congestion or rhinorrhea. Right Sinus: No maxillary sinus tenderness or frontal sinus tenderness. Left Sinus: No maxillary sinus tenderness or frontal sinus tenderness. Mouth/Throat: Pharynx: Posterior oropharyngeal erythema present. No pharyngeal swelling, oropharyngeal exudate oruvula swelling. Eyes: General: Right eye: No discharge. Left eye: No discharge. Cardiovascular: Rate and Rhythm: Normal rate and regular rhythm. Pulmonary: Breath sounds: Normal breath sounds and air entry. Abdominal: Tenderness: There is no abdominal tenderness. Lymphadenopathy: Cervical: No cervical adenopathy. Skin: General: Skin is warm and dry. Neurological: Mental Status: She is alert. Mental status is at baseline. Psychiatric: Attention and Perception: Attention normal. Mood and Affect: Mood normal. Speech: Speech normal. Vitals: 07/21/22 1758 BP: 154/84 Pulse: 100 Resp: 18 Temp: 36.1 ??C (97 ??F) TempSrc: Temporal SpO2: 97% Weight: 86.2 kg (190 lb) Height: 162.6 cm (5' 4 ) Procedures Assessment/Plan COVID and flu were negative Patient given pharyngitis and upper respiratory infection discharge instructions Diagnoses and all orders for this visit: Sore throat (Primary) - POCT rapid strep A - COVID-19 POC Viral upper respiratory infection Recent Results (from the past 4 hour(s)) POCT rapid strep A Collection Time: 07/21/22 6:15 PM Result Value Ref Range Rapid Strep A, POC Negative Negative COVID-19 POC Collection Time: 07/21/22 6:32 PM Result Value Ref Range COVID-19 Ag POC (BD Veritor) Presumptive Negative Presumptive Negative, Invalid Patient Education: Disposition Treatment plan including expectations, follow up, and return precautions discussed with patient/parent, verbalizes understanding. Medication dosage, use, and potential adverse reactions discussed with patient/parent. Advised to follow up with PCP if symptoms do not resolve as expected or sooner if condition worsens. Signs/symptoms warranting ER evaluation reviewed. Patient and/or guardian was given an opportunity to ask questions, questions answered. ROBERT Elias documented in this encounter Plan of Treatment Scheduled Procedures Name Priority Associated Diagnoses Date/Ti me ESOPHAGOGASTRODUODENOSCOPY Nausea Colon cancer screening COLONOSCOPY Nausea Colon cancer screening documented as of this encounter Procedures Procedure Name Priority Date/Time Associated Diagnosis Comments COVID-19 POC Routine 07/21/2022 6:32 PM CDT Sore throat POCT RAPID STREP Routine 07/21/2022 6:15 PM CDT Sore throat documented in this encounter Results * COVID-19 POC (07/21/2022 6:32 PM CDT) COVID-19 Ag POC (BD Veritor) Presumptive Negative Presumptive Negative, Invalid [facility] Nasal 07/21/2022 6:32 PM CDT Alex JONES POINT OF CARE TEST ORDERABLES Final Result [facility] [place] [address] * POCT rapid strep A (07/21/2022 6:15 PM CDT) Rapid Strep A, POC Negative Negative Swab 07/21/2022 6:15 PM CDT Alex JONES POINT OF CARE TEST ORDERABLES Final Result documented in this encounter Visit Diagnoses Diagnosis Sore throat- Primary Acute pharyngitis Viral upper respiratory infection Acute upper respiratory infections of unspecified site documented in this encounter Additional Health Concerns Infection Onset Date Last Indicated Resolved Time COVID: Suspected 07/21/2022 07/21/2022 07/21/2022 6:34 PM CDT documented as of this encounter Care Teams Windows Technical Specialist Relationship Specialty Start Date End Date Newton Mendiola MD [address] [address] PCP - General 06/09/16 Sly Cade MD [address] [address] Referring Physician Cardiology 12/07/18 documented as of this encounter
--- OUTSIDE RECORDS SUMMARY | 2024-03-18 04:59 | XMS_ITS | Encounter Summary ---
Author Organization [facility] Address [address] [place] [address] Phone Care Team Providers Care Apprentice Funeral Director Name Role Phone Newton Mendiola MD Primary Care Provider [phone] Sly Cade MD Unavailable [phone] Reason for Visit * Reason Comments Follow-up Encounter Details Date Type Department Care Team (Late st Contact Info) Description 10/22/2021 8:50 AM CDT Office Visit [facility] Orthopaedic Surgery [address] [facility] Medicine 6th [place] [address] [place] [address] Tacho Sanchez MD [address] [facility] [address] [place] [address] Laceration of right little finger without foreign [...] and Family Not on file 2021 Attends Gnosticism Services Not on file 01/16 Active Member [...] on file Legal Sex Female 7:55 AM RN CLINICAL TRIALS Gender Identity Not on file Sexual Orientation Not on file documented as of this encounter Progress Notes * Tacho Sanchez MD - 10/22/2021 8:50 AM CDT ESTABLISHED PATIENT VISIT INTERIM HISTORY Katy Sauceda was seen in the office today. She is now 2 weeks out after who flexor digitorum profundus tendon repair in the right small finger. Distal laceration. Evaluation today shows that the tendon repair is intact. Digital nerve was evaluated intraoperatively was found to be in continuity.. IMPRESSION/TREATMENT PLAN Begin synergistis today. See back in four weeks. Tacho Sanchez M.D., MSc, [facility](C) Professor [facility] Orthopedics documented in this encounter Plan of Treatment Scheduled Procedures Name Priority Associated Diagnoses Date/Ti me ESOPHAGOGASTRODUODENOSCOPY Nausea Colon cancer screening COLONOSCOPY Nausea Colon cancer screening documented as of this encounter Visit Diagnoses Diagnosis Laceration of right little finger without foreign body without damage to nail, initial encounter- Primary documented in this encounter Care Teams Apprentice Funeral Director Relationship Specialty Start Date End Date Newton Mendiola MD [address] [address] PCP - General 06/09/16 Sly Cade MD [address] [facility] [address] [place] [address] Referring Physician Cardiology 12/07/18 documented as of this encounter
--- OUTSIDE RECORDS SUMMARY | 2024-03-18 04:59 | XMS_ITS | Encounter Summary ---
Author Organization [facility] Address [address] [place] [address] Phone Care Team Providers Care Food Production Machine Operator Name Role Phone Newton Mendiola MD Primary Care Provider [phone] Sly Cade MD Unavailable [phone] Encounter Details Date Type Department Care Team (Late st Contact Info) Description 10/22/2021 Transcribe Orders [facility] Orthopaedic Surgery [address] [facility] 6th [place] [address] [place] [address] Tacho Sanchez MD [address] [facility] [address] [place] [address] Laceration of right little finger without foreign [...] on file 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
--- OUTSIDE RECORDS SUMMARY | 2024-03-18 04:59 | XMS_ITS | Encounter Summary ---
Author Organization [facility] Address [address] [place] [address] Care Team Providers Care Panelboard Operator Name Role Phone Newton Mendiola MD Primary Care Provider [phone] Sly Cade MD Unavailable Encounter Details Date Type Department Care Team (Late st Contact Info) Description 05/21/2022 [facility] [address] [facility] [address] [place] [address] Newton Mendiola MD [address] [facility] [address] [place] [address] Social History Tobacco Use Types [...] and Family Not on file 2021 Attends Yazidi Services Not on file 01/16 Active Member [...] on file Legal Sex Female 7:55 AM NURSES' 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 Gender Identity Not on file Sexual Orientation Not on file documented as of this encounter Miscellaneous Notes * Telephone Encounter - Yudelka Daugherty MA - 05/21/2022 3:08 PM CST Pt aware/mk ES' 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 * Telephone Encounter - Yudelka Daugherty MA - 05/21/2022 3:08 PM CST ----- Message from Newton Mendiola MD sent at 05/17/2022 9:17 AM NURSES' 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 ----- Elevated bg, not unexpected, otherwise ok ES' 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 * Telephone Encounter - Yudelka Daugherty MA - 05/21/2022 2:56 PM CST Pt aware/mk she had egd 10-04-21 and it was normal ES' 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 * Telephone Encounter - Yudelka Daugherty MA - 05/21/2022 2:56 PM CST ----- Message from Newton Mendiola MD sent at 05/21/2022 7:47 AM NURSES' 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 ----- No evidence of obstruction. If persists will need egd ES' 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 documented in this encounter Plan of Treatment Scheduled Procedures Name Priority Associated Diagnoses Date/Ti me ESOPHAGOGASTRODUODENOSCOPY Nausea Colon cancer screening COLONOSCOPY Nausea Colon cancer screening documented as of this encounter Visit Diagnoses Not on filedocumented in this encounter Care Teams Panelboard Operator Relationship Specialty Start Date End Date Newton Mendiola MD [address] [employer] [address] [address] PCP - General 06/09/16 Sly Cade MD [address] [employer] [place] [address] [place] [address] Referring Physician Cardiology 12/07/18 documented as of this encounter
--- OUTSIDE RECORDS SUMMARY | 2024-03-18 04:59 | XMS_ITS | Encounter Summary ---
Author Organization [facility] Address [address] [place] [address] Phone Care Team Providers Care Plate Keeper Name Role Phone Newton Mendiola MD Primary Care Provider [phone] Sly Cade MD Unavailable [phone] Reason for Visit * Reason Comments OT Treatment * Consultation (Routine) - Closed Specialty Diagnoses / Procedures Referred By Nino fletcher Referred To Contact Occupational Therapy Diagnoses Laceration of right little finger without foreign body without damage to nail, initial encounter Tacho Sanchez MD Phone: tel: fax: [facility] Occupational Therapy [address] [place] [address] [address]th [place] [address] [place] [address] Phone: tel: fax: Referral ID Status Reason Start Date Expiration Date V isits Requested Visits Authorized [id number] Closed Specialty Services Required 11/19/2021 12/19/2022 24 24 Encounter Details Date Type Department Care Team (Late st Contact Info) Description 12/10/2021 10:30 AM CDT Therapy [facility] Occupational Therapy [address] [place] [address] 6th [place] [address] [place] [address] Parul Gottlieb OT [address] [address] Laceration of right little finger without foreign [...] and Family Not on file 2021 Attends Judaism Services Not on file 01/16 Active Member [...] file Legal 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 Pain: 0/10 without any pain meds; with AROM- 4/10 Objective: DOS- 10/14/21 8 weeks and 1 day postop AROM small finger before treatment: Mp: 0/75 Pip: -10/70 Dip: 0/5 ROSA: 140 Treatment provided: - Paraffin deferred due to edema today - Scar mobilization to palm and small finger scar sites; light IASTM and tolerated this date over entire scar site - improved suppleness of scar after intervention - PROM - small finger composite flexion with emphasis on dip flexion. Now to do over the table edgefor PROM flexion and resisted extension on the way up for glide and strength and mostly ROM. - Rolling on different size dowels for extension, then intrinsic minus for DIP joint active flexion- issued foam cylinder to perform this exercise at [facility] - Continued BTE: 181, 504, 601 and 302 for spontaneous AROM and endurance (minimal resistance) - patient feels her dip attempting to flex during ladder tool. Assessment: Patient has had slight backslide this week after she hit her radial small finger at scar site two days ago. She arrived frustrated with her edema and stiffness that she has had since hitting her hand. By the end of session, she has regained motion that she did not have at the beginning of the session. Flicker is noted during rolling from composite flexion to hook fist today - issued foam cylinder to complete while she is in class this week. She is very motivated that she can feel slight bendingat her dip joint during minimal resistance BTE exercises. Plan: Decrease to 1x weekly in 1-2 weeks Trial CUS? Warm rice next visit, continue weighted BTE and functional activities Goals: STG1: Verbalize understanding of pre- cautions [...] Pt will report readiness for discharge to [facility], gradual return to more strenuous activities with 0/10 pain and verbalize understanding of any remaining precautions - ongoing - due by 01/12/22 (new date) LTG2: Patient will type for 2 hours without pain - new goal 12/10/21; to be met by 01/12/22 Start time: 1030 End Time: 1115 Parul Gottlieb OTR/Rikki, CHT documented in this encounter Plan of Treatment Scheduled Procedures Name Priority Associated Diagnoses Date/Ti me ESOPHAGOGASTRODUODENOSCOPY Nausea Colon cancer screening COLONOSCOPY Nausea Colon cancer screening documented as of this encounter Visit Diagnoses Diagnosis Laceration of right little finger without foreign body without damage to nail, subsequent encounter- Primary documented in this encounter Care Teams Plate Keeper Relationship Specialty Start Date End Date Newton Mendiola MD [address] [email or web address] [address] [place] [address] PCP - General 06/09/16 Sly Cade MD [address] [employer] [address] [place] [address] Referring Physician Cardiology 12/07/18 documented as of this encounter
--- OUTSIDE RECORDS SUMMARY | 2024-03-18 04:59 | XMS_ITS | Encounter Summary ---
Author Organization [facility] Address [address] [place] [address] Phone Care Team Providers Care Lumber Tripper Name Role Phone Newton Mendiola MD Primary Care Provider [phone] Sly Cade MD Unavailable [phone] Reason for Visit * Reason Comments OT Treatment * Consultation (Routine) - Closed Specialty Diagnoses / Procedures Referred By Nino fletcher Referred To Contact Occupational Therapy Diagnoses Laceration of right little finger without foreign body without damage to nail, initial encounter Tacho Sanchez MD Phone: tel: fax: [facility] (All Locations) Referral ID Status Reason Start Date Expiration Date V isits Requested Visits Authorized [id number] Closed Specialty Services Required 10/11/2021 11/10/2022 24 24 Encounter Details Date Type Department Care Team (Late st Contact Info) Description 11/08/2021 10:30 AM CDT Therapy 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 Date of onset: 09/21/21 ?? Cause of injury: cutting vegetables ?? Date of surgery: 10/14/21 ?? Surgery details: Primary FDP repair- 4 strand ?? Next MD Appointment: 11/19/21?? Subjective: Patient reports that she started Neurontin - today is her second day. She has less severe nerve pain but it is still present, and feels shooting and burning sensations near her tip with exercises. [x] Mental health status discussed Frustrated with nerve pain and continued swelling Pain: 210 today with tylenol on board. Objective:?? Small finger flexion arom (measured during place and hold): Mp: 70 Pip: 65 Dip: 3 Active protected pip extension: -11 Treatment provided: - light debridement of scab and dry skin performed today - improved range of motion - Scar mobilization - including progression today with dycem. Dycem issued to patient for home use with instructions in technique and precautions (not to rub skin raw) - PROM - small finger composite flexion, isolated joint flexion - Continued FDS glides for all right digits to increase glide (in wrist slight flexion) - synergistic wrist motion (tenodesis): 5repetitions with cueing for 5 second hold each repetition - hot pack x10 minutes on foam wedge for elevation, positioned in protective flexion After treatment - Coban wrap (1 inch) applied to small finger to minimize post-treatment edema Assessment: Patient demonstrates full, pain free prom after intervention, feeling a sensation of scar relaxing in her small finger with protected passive stretch. She also feels tension in her small finger dipj and tip with active hook fist. Upgraded scar mobilization today to include dycem, and increased suppleness of tissue noted today following scar mobilization. She will stop [id number] partial fist athome and replace with active hook, ensuring she is avoiding composite digit/wrist extension. Plan: Therapy 2x weekly. Reinforce importance of regular progress and consistent home program completion for maximal outcome. Progress program as appropriate. Goals: Goal Status / Date Updated Due by: STG1 Verbalize understanding of pre- cautions for flexor tendon New 10/16/2021 ongoing STG2 Increase PROM to DPC all right digits Ongoing 11/08/2021 10/30/21 STG3 Active right SF active PIP joint extension -5 or less Ongoing 11/08/2021 10/30/21 ? LTG1 Pt will report readiness for discharge to [facility], gradual return to more strenuous activities with 0/10 pain and verbalize understanding of any remaining precautions Ongoing 11/08/2021 12/16/21?? Start time: 1030 End Time: 1130 Parul Gottlieb OTR/L, CHT Cosigned by Sammi Barajas OT at 11/08/2021 3:38 PM CDT documented in this encounter Plan of Treatment Scheduled Procedures Name Priority Associated Diagnoses Date/Ti me ESOPHAGOGASTRODUODENOSCOPY Nausea Colon cancer screening COLONOSCOPY Nausea Colon cancer screening documented as of this encounter Visit Diagnoses Diagnosis Laceration of right little finger without foreign body without damage to nail, subsequent encounter- Primary documented in this encounter Care Teams Lumber Tripper Relationship Specialty Start Date End Date Newton Mendiola MD [address] [address] PCP - General 06/09/16 Sly Cade MD [address] [address] Referring Physician Cardiology 12/07/18 documented as of this encounter
--- OUTSIDE RECORDS SUMMARY | 2024-03-18 05:00 | XMS_ITS | Encounter Summary ---
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) Procedures CTA Chest Abdomen Pelvis Eduardo Kwon MD Phone: tel: fax: [address] [address] Referral ID Status Reason Start Date Expiration Date Visits Re quested Visits Authorized [id number] Closed 05/03/2021 06/02/2022 1 1 Reason for Visit * MRI/CAT/PET Scan (Routine) - Closed Specialty Diagnoses / Procedures Referred By Contac t Referred To Contact Radiology Diagnoses 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) Procedures CTA Chest Abdomen Pelvis Eduardo Kwon MD Phone: tel: fax: [address] [address] Referral ID Status Reason Start Date Expiration Date Visits Re quested Visits Authorized [id number] Closed 05/03/2021 06/02/2022 1 1 Encounter Details Date Type Department Care Team (Latest Contact Info) Description 06/03/2021 11:48 AM CDT - 06/03/2021 11:59 PM CDT Hospital Encounter [facility] Radiology at [facility] [address] [place] [address] Eduardo Kwon MD [address] [place] [address] Dissection of thoracic aorta (CMS/HCC) (HCC); Aortic thrombus (CMS/HCC) (HCC) Discharge Disposition: Discharge to home or self care Social History Tobacco Use Types Packs/Day Years Used Date Smoking Tobacco: Former Cigarettes 0.5 10 1 - 1999 Smokeless Tobacco: Never Alcohol Use [...] , or living with a partner? 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 Gender Identity Not on file Sexual Orientation [...] BY MOUTH EVERY DAY 90 tablet 1 01/05/2020 2 dapagliflozin (FARXIGA) 10 mg tabletIndications :heart failure with reduced ejection fraction Take 1 tablet (10 mg total) by mouth daily 90 tablet 3 12/21/2020 2 Eliquis 5 mg tablet TAKE 1 TABLET BY MOUTH TWICE A DAY 60 tablet 04/08/2021 2 ergocalciferol (VITAMIN D) 50,000 unit capsule Take 1 capsule (50,000 Units total) by mouth once a week fridays 12 capsule 1 10/07/2020 2 famotidine (PEPCID) 40 mg tablet Take [...] 05/28/2020 2 ondansetron (ZOFRAN) 4 mg tablet Take 1 tablet (4 mg total) by mouth every 8 (eight) hours as needed for nausea or vomiting 20 tablet 1 01/15/[address] (PROTONIX) 40 mg EC tablet TAKE 1 TABLET BY MOUTH EVERY DAY 90 tablet 1 12/12/2020 2 spironolactone (ALDACTONE) 25 mg tablet Take 1 tablet (25 mg total) by mouth daily 90 tablet 3 06/14/2020 2 documented as of this encounter Discharge Disposition Disposition Code Departure Means Destination Discharge to home or self care documented in this encounter Plan of Treatment Scheduled Orders Name Type Priority Associated Diagnoses Orde r Schedule CTA Chest Abdomen Pelvis Imaging Schedule Routine, Read Routine (OP Routine) Dissection of thoracic aorta (CMS/HCC) (HCC) Aortic thrombus (CMS/HCC) (HCC) Once for 1 Occurrences starting 11/14/2021 until 11/14/2021 Scheduled Procedures Name Priority Associated Diagnoses Date/Ti me ESOPHAGOGASTRODUODENOSCOPY Nausea Colon cancer screening COLONOSCOPY Nausea Colon cancer screening documented as of this encounter Procedures Procedure Name Priority Date/Time Associated Diagnosis Comments CTA CHEST ABDOMEN PELVIS Schedule Routine, Read Routine (OP Routine) 06/03/2021 12:30 PM CDT LBBB (left bundle branch block) Chronic systolic (congestive) heart failure (HCC) Left lower quadrant pain POCT CREATININE - DEVICE Routine 06/03/2021 12:11 PM CDT documented in this encounter Results * POCT creatinine (06/03/2021 12:11 PM CDT) Creatinine POC 0.7 0.6 - 1.1 mg/dL KEKE GARSIA Blood 06/03/2021 12:1 1 PM CDT 06/03/2021 12:11 PM CDT Eduardo Kwon MD LAB POCT ORDERABLES - DEV ICE Final Result [facility] [place] [address] documented in this encounter Visit Diagnoses Diagnosis Dissection of thoracic aorta (HCC) Dissection of aorta, thoracic Aortic thrombus (CMS/HCC) (HCC) documented in this encounter Administered Medications Inactive Administered Medications - up to 3 most recent administrations Medication Order MAR Action Action Date Dose Rate Site ioversoL (OPTIRAY 350) syringe syringe 96 mL 96 mL, intravenous, Once in imaging, contrast, Starting on 06/03/21 at 1221, For 1 dose Contrast Given 06/03/2021 12:21 PM CDT 96 mL documented in this encounter Care Teams Aircraft Servicer Relationship Specialty Start Date End Date Newton Mendiola MD [address] [place] [address] PCP - General 06/09/16 Sly Cade MD [address] [place] [address] Referring Physician Cardiology 12/07/18 documented as of this encounter
--- OUTSIDE RECORDS SUMMARY | 2024-03-18 05:00 | XMS_ITS | Encounter Summary ---
Author Organization [facility] Healthcare Address [address] [place] [address] Care Team Providers Care Store Stock Associate Name Role Phone Newton Mendiola MD Primary Care Provider [phone] Sly Cade MD Unavailable [phone] Reason for Visit * Reason Onset Date Randall CEDEÑO 09/24/2021 Encounter Details Date Type Department Care Team (Late st Contact Info) Description 09/24/2021 Telephone [facility] Specialty Services [address] [place] [phone] Howard Sánchez, RN GALA Social History Tobacco Use Types Packs/Day Years [...] and Family Not on file 2021 Attends [employer] Not on file 01/16 Active Member [...] on file 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 On 10/03 - at 0815 AM drink remaining 1/2 of jug of Nulytely until jug empty. 4000 mL 09/26/2021 2 documented in this encounter Miscellaneous Notes * Addendum Note - Howard Sánchez RN - 09/26/2021 9:06 AM CDTAddended by: HOWARD SÁNCHEZ on: 09/26/2021 09:06 AM Modules accepted: Orders * Telephone Encounter - Howard Sánchez RN - 09/24/2021 4:41 PM CDT Images from the original note were not included. 09/24 Message Received: Today Hoawrd Sánhcez RN Blaney, Elizabeth J., MD; Howard Sánchez RN Dr Blaney, This patient was referred to us for an EGD, colonoscopy. ??The patient has significant NICM. She iscompliant and up to date with cardiology. Attached is her most recent cardiology visit with Dr Padron. By the note,it looks like she is stable but the most recent LVEF was 51%. ??Could she still be able to be scheduled at [facility] or does she need to see CPAP? ??Please advise and thank you!! Roxanne Garcia RN, MD Westermeyer, Delisa L., RN Sounds like she would be ok for cam 09/26 PROCEDURE Type: EGD, COLON Indication: NAUSEA, SCREEN Referring Physician: HELIO BAINS [facility] Date Referred: CLINICAL ASSESSMENT []COVID Screening questions [] Covid vaccination yes []BMI>45, Weight >350 lbs (if yes, note restrictions below) BMI Readings from Last 1 Encounters: 08/27/21 30.79 kg/m?? Wt Readings from Last 1 Encounters: 08/27/21 83.9 kg (185 lb) [] Patient had GI procedure/CPAP clinic/GI clinic <30 days (if Yes, no medical screening questions needed unless new clinical issues in last 30 days) Medical screening questions: BMI/Weight: NA CARDIOVASCULAR: None NICM, ECHO 01/03 LVEF 51% , ELIQUIS DUE TO AORTIC THROMBOSIS DUE TO COVID 2020, RECOVERED, SEES DR PADRON, OFF OF ELIQUIS AT THIS TIME RESPIRATORY/LUNG: None DENIES SOB, DOES GET WINDED WHEN WALKING A LONG TIME RENAL/LIVER/GI: None NAUSEA FOR ABOUT 2 MONTHS BLEEDING/CLOTTING: None HODGKINS DISEASE, IN REMISSION NEUROLOGICAL: None ENDOCRINE: None PRIOR PROCEDURE ISSUES: None LIGHT RAIL OPERATOR/: NA IMPLANTS.: None Notes: DIABETIC MEDS Y/N: No/NA []Yes- Discuss diabetes medication management with prescribing physician DIALYSIS Y/N: No/NA []HD- Schedule on non-HD day, see protocol []PD- Drain PD fluid AM of procedure, if colonoscopy order AB ppx, see protocol PACEMAKER/ICD Y/N: No/NA Device info: Last documented device check: Any shocks since last cards visit (if yes must see cardiology for procedure clearance): BLOOD THINNERS/ANTICOAG/ANTIPLATELET (BESIDES ASA) Medication: NONE Physician contacted for hold order/date sent: Hold order Method sent: Date hold received: Hold instructions: CONTINUE ASPIRIN INFORMATION REQUESTED []Imaging: []Medical Progress Note/H&P []Medication list []Other: PATIENT OPTIMIZATION []Physician reviewing escalation: []CPAP: Date scheduled: Outcome : [] Location limitations: Scheduling Scheduling location limitations: Manager Primary needed [] NA Language: POA [] NA Name: SPECIAL PROCEDURE INSTRUCTIONS Scheduling Notes Procedure information Date of procedure: 10/03 Time of procedure: 1514 Arrival time:1415 Location:[facility] Proceduralist:RK Instructions Method of instructions: MyChart [x]Confirmation of ride/fiberglass finisher [x]Post anesthesia restrictions given [x]NPO Instructions: [x]Diet Instructions: [x]Take non-blood thinner prescription meds that morning [x]Bring med list, photo ID, insurance card, no valuables [x]Bring COVID vaccination card (if vaccinated) Bowel Prep Prep prescribed: Nulytely Method of Bowel Prep (RX): E-Scribe Copy 09/26 Colonoscopy instructions IN MYCHART Clear liquids 10/02 and 10/03 10/02 Nulytely 1/2 jug at 6:00 pm 10/03 at 0815 am finish other 1/2 jug documented in this encounter Plan of Treatment Scheduled Procedures Name Priority Associated Diagnoses Date/Ti me ESOPHAGOGASTRODUODENOSCOPY Nausea Colon cancer screening COLONOSCOPY Nausea Colon cancer screening documented as of this encounter Visit Diagnoses Not on filedocumented in this encounter Care Teams Store Stock Associate Relationship Specialty Start Date End Date Newton Mendiola MD [address] [address] PCP - General 06/09/16 Sly Cade MD [address] [place] [address] Referring Physician Cardiology 12/07/18 documented as of this encounter
--- OUTSIDE RECORDS SUMMARY | 2024-03-18 05:00 | XMS_ITS | Encounter Summary ---
Author Organization [facility] Healthcare Address [address] [place] [address] Care Team Providers Care Technical Manager Name Role Phone Newton Mendiola MD Primary Care Provider [phone] Sly Cade MD Unavailable [phone] Reason for Referral * Diagnostic Imaging (Routine) - Closed Specialty Diagnoses / Procedures Referred By Nino fletcher Referred To Contact Diagnoses Multiple thyroid nodules Procedures US Thyroid Newton Mendiola MD [address] [address] Phone: tel: fax: [address] [address] Referral ID Status Reason Start Date Expiration Date Visits Re quested Visits Authorized [id number] Closed 05/22/2021 06/21/2022 1 1 Reason for Visit * Diagnostic Imaging (Routine) - Closed Specialty Diagnoses / Procedures Referred By Nino fletcher Referred To Contact Diagnoses Multiple thyroid nodules Procedures US Thyroid Newton Mendiola MD [address] [address] Phone: tel: fax: [address] [address] Referral ID Status Reason Start Date Expiration Date Visits Re quested Visits Authorized [id number] Closed 05/22/2021 06/21/2022 1 1 Encounter Details Date Type Department Care Team (Latest Contact Info) Description 06/03/2021 9:32 AM CDT - 06/03/2021 11:47 AM CDT Hospital Encounter [facility] Radiology [address] [facility] [place] [address] Newton Mendiola MD [address] [facility] [address] [place] [address] Multiple thyroid nodules Discharge Disposition: Discharge to home or self [...] on file 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 Recommendations regarding management of described nodules are included above. ACR TI-RADS recommendations TR5 (>=7 points) (risk [...] No FNA or follow-up US Dictated by: Oscar Garcias M.D. The radiology attending physician has personally reviewed this study, and had reviewed and/or edited this written report and agrees with it. Electronically signed by: Stephen Oakes M.D. Narrative 06/03/2021 2:02 PM CDT EXAMINATION: THYROID SONOGRAM HISTORY: ??56-year-old female with history of Hodgkin lymphoma status post chest radiation therapy now with incidentally discovered thyroid nodules. Prior Biopsy: No Patient Risk Factors: Prior radiation Prior Ultrasound: ??None FINDINGS: The thyroid is mildly enlarged in size. Size right lobe: 4.5 cm craniocaudal, 2.1 cm transverse, 1.5 cm AP. Size left lobe: 5.1 cm craniocaudal, 2 cm transverse, 2 cm AP. Size isthmus: 0.3 cm AP. Estimated total number of nodules >/= 1 cm: 4 Number of spongiform nodules >/= 2 cm not described below (TR1): 0 Number of mixed cystic and solid nodules >/= 1.5 cm not described below (TR2): 0 Nodule 1: Location: Right mid . Size: 1.6 cm craniocaudal x 1 cm transverse x 0.7 cm AP Maximum Size: 1.6 cm Composition: Solid/almost completely solid (2) Echogenicity: Cannot determine (1) Shape: Not taller than wide (0) Margins: Smooth (0) Echogenic foci: None (0) Additional Echogenic foci 1: None (0) Additional Echogenic foci 2: None (0) ACR TI-RADS total points: 3 ACR TI-RADS risk category: TR3 (3 points) ACR TI-RADS recommendation: Follow-up US in 1 year Nodule 2: Location: Left upper . Size: 1 cm craniocaudal x 1.1 cm transverse x 1.1 cm AP Maximum Size: 1.1 cm Composition: Solid/almost completely solid (2) Echogenicity: Cannot determine (1) Shape: Not taller than wide (0) Margins: Smooth (0) Echogenic foci: None (0) Additional Echogenic foci 1: None (0) Additional Echogenic foci 2: None (0) ACR TI-RADS total points: 3 ACR TI-RADS risk category: TR3 (3 points) ACR TI-RADS recommendation: No further follow-up Nodule 3: Location: Right lower . Size: 2.1 cm craniocaudal x 1.7 cm transverse x 1.7 cm AP Maximum Size: 2.1 cm Composition: Solid/almost completely solid (2) Echogenicity: Cannot determine (1) Shape: Not taller than wide (0) Margins: Smooth (0) Echogenic foci: None (0) Additional Echogenic foci 1: None (0) Additional Echogenic foci 2: None (0) ACR TI-RADS total points: 3 ACR TI-RADS risk category: TR3 (3 points) ACR TI-RADS recommendation: Follow-up US in 1 year Procedure Note Stephen Oakes MD - 06/03/2021 EXAMINATION: THYROID SONOGRAM HISTORY: 56-year-old female with history of Hodgkin lymphoma status post chest radiation therapy now with incidentally discovered thyroid nodules. Prior Biopsy: No Patient Risk Factors: Prior radiation Prior Ultrasound: None FINDINGS: The thyroid is mildly enlarged in size. Size right lobe: 4.5 cm craniocaudal, 2.1 cm transverse, 1.5 cm AP. Size left lobe: 5.1 cm craniocaudal, 2 cm transverse, 2 cm AP. Size isthmus: 0.3 cm AP. Estimated total number of nodules >/= 1 cm: 4 Number of spongiform nodules >/= 2 cm not described below (TR1): 0 Number of mixed cystic and solid nodules >/= 1.5 cm not described below (TR2): 0 Nodule 1: Location: Right mid . Size: 1.6 cm craniocaudal x 1 cm transverse x 0.7 cm AP Maximum Size: 1.6 cm Composition: Solid/almost completely solid (2) Echogenicity: Cannot determine (1) Shape: Not taller than wide (0) Margins: Smooth (0) Echogenic foci: None (0) Additional Echogenic foci 1: None (0) Additional Echogenic foci 2: None (0) ACR TI-RADS total points: 3 ACR TI-RADS risk category: TR3 (3 points) ACR TI-RADS recommendation: Follow-up US in 1 year Nodule 2: Location: Left upper . Size: 1 cm craniocaudal x 1.1 cm transverse x 1.1 cm AP Maximum Size: 1.1 cm Composition: Solid/almost completely solid (2) Echogenicity: Cannot determine (1) Shape: Not taller than wide (0) Margins: Smooth (0) Echogenic foci: None (0) Additional Echogenic foci 1: None (0) Additional Echogenic foci 2: None (0) ACR TI-RADS total points: 3 ACR TI-RADS risk category: TR3 (3 points) ACR TI-RADS recommendation: No further follow-up Nodule 3: Location: Right lower . Size: 2.1 cm craniocaudal x 1.7 cm transverse x 1.7 cm AP Maximum Size: 2.1 cm Composition: Solid/almost completely solid (2) Echogenicity: Cannot determine (1) Shape: Not taller than wide (0) Margins: Smooth (0) Echogenic foci: None (0) Additional Echogenic foci 1: None (0) Additional Echogenic foci 2: None (0) ACR TI-RADS total points: 3 ACR TI-RADS risk category: TR3 (3 points) ACR TI-RADS recommendation: Follow-up US in 1 year IMPRESSION: 1. Recommendations regarding management of described nodules are included above. ACR TI-RADS recommendations TR5 (>=7 points) (risk [...] No FNA or follow-up US Dictated by: Oscar Garcias M.D. The radiology attending physician has personally reviewed this study, and had reviewed and/or edited this written report and agrees with it. Electronically signed by: Stephen Oakes M.D. us Newton Mendiola MD IMG US PROCEDURES Final Resul t documented in this encounter Visit Diagnoses Diagnosis Multiple thyroid nodules Nontoxic multinodular goiter documented in this encounter Care Teams Technical Manager Relationship Specialty Start Date End Date Newton Mendiola MD [address] [address] PCP - General 06/09/16 Sly Cade MD [address] [address] Referring Physician Cardiology 12/07/18 documented as of this encounter
--- OUTSIDE RECORDS SUMMARY | 2024-03-18 05:00 | XMS_ITS | Encounter Summary ---
Author Organization [facility] Address [address] [place] [address] Care Team Providers Care Cement Finisher Helper Name Role Phone Newton Mendiola MD Primary Care Provider [phone] Sly Cade MD Unavailable [phone] Encounter Details Date Type Department Care Team (Late st Contact Info) Description 09/24/2021 [facility] [address] [facility] [address] [place] [phone] Newton Mendiola MD [address] [facility] [address] [place] [address] Social History Tobacco Use Types [...] on file 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 * Telephone Encounter - Vicky Donaldson NP - 09/24/2021 4:33 PM CDT Stop the depakote. * Telephone Encounter - Ann Sorto MA - 09/24/2021 3:03 PM CDT You put her on depakote 125mg. She is having trouble with medication. She hasnt gotten out of bed in a week in a half. What do you want her to do? CB# [phone] documented in this encounter Plan of Treatment Scheduled Procedures Name Priority Associated Diagnoses Date/Ti me ESOPHAGOGASTRODUODENOSCOPY Nausea Colon cancer screening COLONOSCOPY Nausea Colon cancer screening documented as of this encounter Visit Diagnoses Not on filedocumented in this encounter Care Teams Cement Finisher Helper Relationship Specialty Start Date End Date Newton Mendiola MD [address] [address] PCP - General 06/09/16 Sly Cade MD [address] [address] Referring Physician Cardiology 12/07/18 documented as of this encounter
--- OUTSIDE RECORDS SUMMARY | 2024-03-18 05:00 | XMS_ITS | Encounter Summary ---
Author Organization [facility] Address [address] [place] [address] Phone Care Team Providers Care Pharmacovigilance Specialist Name Role Phone Newton Mendiola MD Primary Care Provider [phone] Sly Cade MD Unavailable [phone] Reason for Visit * Reason Comments Pain * Consultation (Routine) - Closed Specialty Diagnoses / Procedures Referred By Nino fletcher Referred To Contact Orthopedic Surgery Diagnoses Laceration of right little finger without foreign body without damage to nail, initial encounter Newton Mendiola MD [address] [place] [address] Phone: tel: fax: Deandre Prince MD [address] [place] [address] Phone: tel: fax: Referral ID Status Reason Start Date Expiration Date V isits Requested Visits Authorized [id number] Closed Specialty Services Required 09/30/2021 10/30/2022 1 1 Encounter Details Date Type Department Care Team (Late st Contact Info) Description 10/09/2021 10:10 AM CDT Office Visit [facility] Orthopaedic Surgery [address] [facility] [address] [place] [address] Soy Willett MD [address] [place], [place] [id number] Laceration of right little finger without foreign [...] place to sleep or slept in a mcc (including now)? 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 We discussed the risks and benefits of repair including potential for regaining some function of the D IP joint, but potentially at the cost of stiffness and decreased finger range of motion. She would like to consider options. I discussed with her that she wishesto proceed with surgery, I think that should be done next week given that she is already 2 weeks out from her injury. Unfortunately, I will be out [...] Dr. Sanchez. Dr. Soy Willett dictating using [employer]ency Software. Senior Policy Associate variances may occur. Soy Willett M.D., M.Sc. Ecmo Specialist, Department of Orthopaedic Surgery [facility] in [place] [address] [address] [place], [place] [address] documented in this encounter Plan of Treatment [...] Fir st Ordered Date AMB REFERRAL TO ORTHOPEDIC HAND 1 2 documented in this encounter Care Teams Pharmacovigilance Specialist Relationship Specialty Start Date End Date Newton Mendiola MD [address] [facility] [address] [address] PCP - General 06/09/16 Sly Cade MD [address] [address] Referring Physician Cardiology 12/07/18 documented as of this encounter
--- OUTSIDE RECORDS SUMMARY | 2024-03-18 05:00 | XMS_ITS | Encounter Summary ---
Author Organization [facility] Address [address] [place] [address] Care Team Providers Care Pre Press Manager Name Role Phone Newton Mendiola MD Primary Care Provider [phone] Sly Cade MD Unavailable [phone] Encounter Details Date Type Department Care Team (Late st Contact Info) Description 08/27/2021 Orders Only [facility] [address] [facility] [address] [facility] [place] [address] Vicky Donaldson, BRIT [address] [facility] [address] [place], [place] [id number] Social History Tobacco Use Types Packs/Day Years [...] on file 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 documented in this encounter Plan of Treatment Scheduled Procedures Name Priority Associated Diagnoses Date/Ti me ESOPHAGOGASTRODUODENOSCOPY Nausea Colon cancer screening COLONOSCOPY Nausea Colon cancer screening documented as of this encounter Procedures Procedure Name Priority Date/Time Associated Diagnosis Comments CBC WITH AUTO DIFFERENTIAL Routine 08/27/2021 11:56 AM CDT LIPASE Routine 08/27/2021 11:56 AM CDT AMYLASE Routine 08/27/2021 11:56 AM CDT COMPREHENSIVE METABOLIC PANEL Routine 08/27/2021 11:56 AM CDT documented in this encounter Results * Lipase (08/27/2021 11:56 AM CDT) Lipase, Serum 32 14 - 72 U/L [facility] - 01 08/27/2021 11:5 6 AM CDT 08/27/2021 Narrative [facility] - 08/28/2021 8:16 AM CDT Performed at: ??[address] ??[id number] Knitting Machine Mechanic: Vernon Connell PhD, Phone: ??[phone] Vicky Donaldson NP LAB BLOOD ORDERABLES Fin al Result Performing Organization Address [facility] de Phone Number [facility] - 01 * (ABNORMAL) Amylase (08/27/2021 11:56 AM CDT) Pathologist [facility] Amylase, Serum 29(L) 31 - 110 U/L [facility] - 01 08/27/2021 11:5 6 AM CDT 08/27/2021 Narrative [facility] - 08/28/2021 8:16 AM CDT Performed at: ??[address] ??[id number] Knitting Machine Mechanic: Vernon Connell PhD, Phone: ??[phone] Vicky Donaldson NP LAB BLOOD ORDERABLES Fin al Result Performing Organization Address [facility] [[email or web address]] Co de Phone Number [facility] - 01 * (ABNORMAL) Comprehensive metabolic panel (08/27/2021 11:56 AM CDT) Glucose 115(H) 65 - 99 mg/dL [facility] - 01 BUN 18 6 - 24 mg/dL [facility] - 01 Creatinine, Serum 1.02(H) 0.57 - 1.00 mg/dL [facility] - 01 eGFR 65 >59 mL/min/1.7 3 [facility] - 01 BUN/creat ratio 18 9 - 23 [facility] - 01 Sodium 141 134 - 144 mmol/L [facility] - 01 Potassium, sr 4.8 3.5 - 5.2 mmol/L [facility] - 01 Chloride 101 96 - 106 mmol/L [facility] - 01 CO2 22 20 - 29 mmol/L [facility] - 01 Calcium 9.9 8.7 - 10.2 mg/dL [facility] - 01 Protein, sr 7.7 6.0 - 8.5 g/dL [facility] - 01 Albumin 4.8 3.8 - 4.9 g/dL [facility] - 01 Globulin, Total 2.9 1.5 - 4.5 g/dL [facility] - 01 A/G Ratio 1.7 1.2 - 2.2 [facility] - 01 Bilirubin, Total 0.3 0.0 - 1.2 mg/dL [facility] - 01 Alk phos 89 44 - 121 IU/L [facility] - 01 AST 20 0 - 40 IU/L [facility] - 01 ALT 27 0 - 32 IU/L [facility] - 01 08/27/2021 11:5 6 AM CDT 08/27/2021 Narrative [facility] - 08/28/2021 8:16 AM CDT Performed at: ??01 - [facility] [address] ??[id number] Knitting Machine Mechanic: Vernon Connell PhD, Phone: ??[phone] us Vicky Donaldson FISH FARM MANAGER LAB BLOOD ORDERABLES Fin al Result [facility] - 01 * (ABNORMAL) CBC with auto differential (08/27/2021 11:56 AM CDT) [facility] WBC 10.5 3.4 - 10.8 x10E3/uL [facility] - 01 RBC 4.72 3.77 - 5.28 x10E6/uL [facility] - 01 Hgb 13.6 11.1 - 15.9 g/dL [facility] - 01 Hct 41.4 34.0 - 46.6 % [facility] - 01 MCV 88 79 - 97 fL [facility] - 01 MCH 28.8 26.6 - 33.0 pg [facility] - 01 MCHC 32.9 31.5 - 35.7 g/dL [facility] - 01 Rdw 13.4 11.7 - 15.4 % [facility] - 01 Platelets 544(H) 150 - 450 x10E3/uL [facility] - 01 Neutrophils pct 66 Not Estab. % [facility] - 01 Lymphs pct 26 Not Estab. % [facility] - 01 Monocytes pct 6 Not Estab. % [facility] - 01 Eosinophils pct 1 Not Estab. % [facility] - 01 Basophil pct 1 Not Estab. % [facility] - 01 Neutrophil abs 7.0 1.4 - 7.0 x10E3/uL [facility] - 01 Lymphs (Absolute) 2.7 0.7 - 3.1 x10E3/uL [facility] - 01 Monocyte abs 0.7 0.1 - 0.9 x10E3/uL [facility] - 01 Eosinophils, abs 0.1 0.0 - 0.4 x10E3/uL [facility] - 01 Basophils, abs 0.1 0.0 - 0.2 x10E3/uL [facility] - 01 Immature Granulocytes 0 Not Estab. % [facility] - 01 Immature Grans (Abs) 0.0 0.0 - 0.1 x10E3/uL [facility] - 01 08/27/2021 11:5 6 AM CDT 08/27/2021 Narrative [facility] - 08/28/2021 8:16 AM CDT Performed at: ??01 - [facility] [address] ??[id number] Knitting Machine Mechanic: Vernon Connell PhD, Phone: ??[phone] us Vicky Donaldson FISH FARM MANAGER LAB BLOOD ORDERABLES Fin al Result [facility] - 01 documented in this encounter Visit Diagnoses Not on filedocumented in this encounter Care Teams Pre Press Manager Relationship Specialty Start Date End Date Konzen, Newton L., MD [address] [address] PCP - General 06/09/16 Sly Cade MD [address] [address] Referring Physician Cardiology 12/07/18 documented as of this encounter
--- OUTSIDE RECORDS SUMMARY | 2024-03-18 05:00 | XMS_ITS | Encounter Summary ---
Author Organization [facility] Address [address] [place] [address] Phone Care Team Providers Care Contact Center Agent Name Role Phone Newton Mendiola MD Primary Care Provider [phone] Sly Cade MD Unavailable [phone] Encounter Details Date Type Department Care Team (Late st Contact Info) Description 07/16/2021 4:00 PM CDT Office Visit 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 Gender Identity Not on file Sexual Orientation Not on file documented as of this encounter Last Filed Vital Signs Vital Sign Reading Time Taken Comments Blood Pressure 130/82 07/16/2021 4:01 PM CDT Pulse 92 07/16/2021 4:01 PM CDT Temperature - - Respiratory Rate - - Oxygen Saturation 98% 07/16/2021 4:01 PM CDT Inhaled Oxygen Concentration - - Weight 87 kg (191 lb 12.8 oz) 07/16/2021 4:01 PM CDT Height 165.1 cm (5' 5 ) 07/16/2021 4:01 PM CDT Body Mass Index 31.92 07/16/2021 4:01 PM CDT documented in this encounter Progress Notes * Matt Remy MD - 07/16/2021 4:00 PM CDT Images from the original note were not included. Cardiology Return Clinic Visit Visit Date: 07/16/21 Patient Diagnosis List 1. NICM a. Informed of LBBB during pre-op EKG years ago , then Dx with NICM [facility] demonstrating no angiographically significant CAD b. TTE 12/29/18 = LVEDD 4.3 cm with LVEF 41% & global hypokinesis c. CMR 02/01 = LVEF 44%, no delayed contrast enhancement to suggest infiltrative cardiomyopathy 2. Long RP tachycardia a. 05/20/20 on Kardia = likely atrial tachycardia 3. Non-cardiac a. 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 Pre-diabetes c. Intolerance to metformin (abdominal pain 11/2020) d. SARS-CoV-15 December 2020 (not hospitalized but course complicated by thrombus in the descending aorta & emboli to spleen; treated with 3+ months of apixiban with resolution of thrombus on CT 05/2021) Dear Newton Mendiola MD We had the pleasure of seeing Katy Sauceda at the [facility] at [facility] in [place]. As you recall, she is a pleasant 56 y.o. female that we follow for non-ischemic cardiomyopathy. Since her last visit in January 2021 with our QUARRY SUPERVISOR Cat, she has done well from a cardiovascular perspective. She continue with her apixaban until a repeat CT in May demonstrated resolution of her descending aortic thrombus; hypoxia been was subsequently stopped. In the interval, she has done quite well from a symptom standpoint as she continues to remodel her house and is taking care of her three grandchildren living with her. She is not endorse any further dyspnea on exertion or orthopnea. Patient does not endorse any angina, chest tightness, palpitations, presyncope, or syncope. She has recently gotten exercise bike and is hopeful to get on it soon. ROS: As her HPI, otherwise 12 point review of systems reviewed and negative Objective CV Medications Aspirin 81 mg Atorvastatin 40 mg Dapagliflozin 10 mg Imdur 30 mg Losartan 50 mg Metoprolol XL 100 mg qd Spironolactone 25 qd Vitals & Physical Exam HR: 92 BP: 130/82 Weight: 191 lbs GEN: pleasant female in [...] 232, HDL 31, LDL 166, TG 176 A1c 11/22/20: 6.2% TTE 03/02/20 = LVEDD 5.1 cm, LVEF 46% with dyschronous septum, imparied relaxation, no significant valvular abnormalitites & no major change from 2019 TTE 12/10/20 = mildly reduced LVEF 51% with no appreciable changes from 02/2020, paradoxical septal motion, pseudo normal Kardea capture during palpitations 05/20/20 Assessment Recommendations #Non-Ischemic Cardiomyopathy + HFmrEF #Hypertension #Hyperlipidemia #Atrial tachycardia Patient is doing remarkably well from a cardiovascular perspective and has had resolution of her aortic thrombus on her most recent cross-sectional imaging. She is euvolemic on exam with NYHA I symptoms. Will not plan on making any changes to her medical regimen today but will plan on obtaining a lipid panel at her next clinic visit. Thank you for the opportunity to participate in the care of this wonderful patient. We will plan onseeing them back in 6 months time. Please do not hesitate to contact us with any questions or concerns that may arise in the interim. Matt Remy MD on 07/16/2021 at 3:57 PM Set Making Machine Operatorfield education director (Cardiology) Director, Sports Cardiology [facility] in [place] documented in this encounter Plan of Treatment Scheduled Procedures Name Priority Associated Diagnoses Date/Ti me ESOPHAGOGASTRODUODENOSCOPY Nausea Colon cancer screening COLONOSCOPY Nausea Colon cancer screening documented as of this encounter Visit Diagnoses Diagnosis NICM (nonischemic cardiomyopathy) (CMS/HCC) (HCC)- Primary Atrial tachycardia (HCC) Other specified cardiac dysrhythmias Aortic thrombus (CMS/HCC) (HCC) documented in this encounter Care Teams Contact Center Agent Relationship Specialty Start Date End Date Newton Mendiola MD [address] [place] [address] PCP - General 06/09/16 Sly Cade MD [address] [place] [address] Referring Physician Cardiology 12/07/18 documented as of this encounter
--- OUTSIDE RECORDS SUMMARY | 2024-03-18 05:00 | XMS_ITS | Encounter Summary ---
Author Organization [facility] Address [address] [place] [address] Care Team Providers Care Environmental Field Professional Name Role Phone Newton Mendiola MD Primary Care Provider [phone] Sly Cade MD Unavailable [phone] Encounter Details Date Type Department Care Team (Late st Contact Info) Description 06/27/2021 [facility] [address] [facility] [address] [place] [address] Newton Mendiola MD [address] [facility] [address] [place] [address] Social History Tobacco Use Types [...] and Family Not on file 2021 Attends Scientology Services Not on file 01/16 Active Member [...] on file 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 12 tablet 1 06/27/2021 12/16/2021 documented in this encounter Miscellaneous Notes * Telephone Encounter - Lupe Velásquez - 06/27/2021 4:28 PM CDT Pt aware. * Telephone Encounter - Newton Mendiola MD - 06/27/2021 4:18 PM CDT Called in valacyclovir * Telephone Encounter - Lupe Velásquez - 06/27/2021 3:33 PM CDT Pt states that she take this medication for cold sore and stated that she has a couple of them now. * Telephone Encounter - Newton Mendiola MD - 06/27/2021 3:30 PM CDT For what problem please * Telephone Encounter - Lupe Velásquez - 06/27/2021 3:06 PM CDT Pt calls and states that she will like to get a refill on a prescription that she had a while ago. Valaciclovir, pt doesn't know the mg ask for that and how she takes it. I looked through old ov and try to find the medication and the mg and no luck. documented in this encounter Plan of Treatment Scheduled Procedures Name Priority Associated Diagnoses Date/Ti me ESOPHAGOGASTRODUODENOSCOPY Nausea Colon cancer screening COLONOSCOPY Nausea Colon cancer screening documented as of this encounter Visit Diagnoses Not on filedocumented in this encounter Care Teams Environmental Field Professional Relationship Specialty Start Date End Date Newton Mendiola MD [address] [address] PCP - General 06/09/16 Sly Cade MD [address] [address] Referring Physician Cardiology 12/07/18 documented as of this encounter
--- OUTSIDE RECORDS SUMMARY | 2024-03-18 05:00 | XMS_ITS | Encounter Summary ---
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) Procedures CTA Chest Abdomen Pelvis Eduardo Kwon MD Phone: tel: fax: [facility] [address] [place] [address] Referral ID Status Reason Start Date Expiration Date Visits Re quested Visits Authorized [id number] Closed 05/03/2021 06/02/2022 1 1 ERY STRIPER Encounter Details Date Type Department Care Team (Late st Contact Info) Description 05/03/2021 Orders Only [facility] Surgery [address] [facility] [address]th [place] [address] [place] [address] Eduardo Kwon MD [address] [place] [address] 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); Aortic thrombus (CMS/HCC) (HCC) Social History Tobacco [...] on file 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 Gender Identity Not on file Sexual Orientation Not on file documented as of this encounter Plan of Treatment Scheduled Orders Name Type Priority Associated Diagnoses Orde r Schedule CTA Chest Abdomen Pelvis Imaging Schedule Routine, Read Routine (OP Routine) Dissection of thoracic aorta (CMS/HCC) (HCC) Aortic thrombus (CMS/HCC) (HCC) Expected: 05/10/2021 (Approximate), Expires: 10/31/2022 Scheduled Procedures Name Priority Associated Diagnoses Date/Ti me ESOPHAGOGASTRODUODENOSCOPY Nausea Colon cancer screening COLONOSCOPY Nausea Colon cancer screening documented as of this encounter Visit Diagnoses Diagnosis Dissection of thoracic aorta (HCC)- Primary Dissection of aorta, thoracic Aortic thrombus (CMS/HCC) (HCC) documented in this encounter Additional Health Concerns Infection Onset Date Last Indicated Resolved Time COVID: Recovered Comment:Added based on recent COVID infection. 01/29/2021 04/25/2021 05/29/2021 3:05 AM C DT documented as of this encounter Care Teams Gamemaster Relationship Specialty Start Date End Date Newton Mendiola MD [address] [facility] [address] [address] PCP - General 06/09/16 Sly Cade MD [address] [address] Referring Physician Cardiology 12/07/18 documented as of this encounter
--- OUTSIDE RECORDS SUMMARY | 2024-03-18 05:00 | XMS_ITS | Encounter Summary ---
Author Organization [facility] Healthcare Address [address] [place] [address] Care Team Providers Care Medical Collections Specialist Name Role Phone Newton Mendiola MD Primary Care Provider [phone] Sly Cade MD Unavailable Reason for Visit * Auth/Cert Specialty Diagnoses / Procedures Referred By Contac t Referred To Contact Diagnoses Nausea Screen for colon cancer Nausea [R11.0] Screen for colon cancer [Z12.11] Procedures FL ESOPHAGOGASTRODUODENOSCOPY TRANSORAL DIAGNOSTIC FL COLONOSCOPY FLX DX W/COLLJ SPEC WHEN PFRMD FL EGD TRANSORAL BIOPSY SINGLE/MULTIPLE FL COLONOSCOPY W/BIOPSY SINGLE/MULTIPLE FL EGD TRANSORAL BIOPSY SINGLE/MULTIPLE FL COLONOSCOPY W/BIOPSY SINGLE/MULTIPLE ESOPHAGOGASTRODUODENOSCOPY OA/DW COLONOSCOPY OA/DW Referral ID Status Reason Start Date Expiration Date Visits Re quested Visits Authorized [id number] 1 1 Encounter Details Date Type Department Care Team (Latest Contact Info) Description 10/03/2021 3:15 PM CDT - 10/03/2021 4:15 PM CDT Surgery [facility] [address] [place] [address] Brunilda Arzola MD [address] [place], [place] [id number] ESOPHAGOGASTRODUODENOSCOPY BIOPSY Surgery Details Date/Time Status Location OR Service Patient Class Case Class Case Type Trauma Case? 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[employer] Gender Identity Not on file Sexual Orientation Not on file documented as of this encounter Last Filed Vital Signs Vital Sign Reading Time Taken Comments Blood Pressure 136/74 10/03/2021 3:57 PM CDT Pulse 87 10/03/2021 3:57 PM CDT Temperature 36.8 ??C (98.2 ??F) 10/03/2021 3:37 PM CD T Respiratory Rate 14 10/03/2021 3:57 PM CDT Oxygen Saturation 100% 10/03/2021 3:57 PM CDT Inhaled Oxygen Concentration - - Weight 84.4 kg (186 lb) 10/03/2021 2:14 PM CDT Height 165.1 cm (5' 5 ) 10/03/2021 2:14 PM CDT Body Mass Index 30.95 10/03/2021 2:14 PM CDT documented in this encounter Medications at Time [...] mouth daily 90 tablet 3 05/28/2020 2 nitrofurantoin monohydrate (MACROBID) 100 mg capsule TAKE 1 CAPSULE BY MOUTH EVERY 12 HOURS FOR 5 DAYS. MUST ADMINISTER WITH A MEAL/FOOD 08/28/2021 2 ondansetron (ZOFRAN) 4 mg tablet TAKE [...] 09/26/2021 2 spironolactone (ALDACTONE) 25 mg tablet Take 1 tablet (25 mg total) by mouth daily 90 tablet 3 06/14/2020 2 valACYclovir (VALTREX) 1 gram tablet Take 2 tabs q 12 hours x 1 day. 12 tablet 1 06/27/2021 2 documented as of this encounter Discharge Disposition Disposition Code Departure Means Destination Discharge to home or self care documented in this encounter Procedure Notes * Brunilda Arzola MD - 10/03/2021 3:08 PM CDTAssociated Order(s): COLONOSCOPY GI ENDOSCOPY [facility] Patient Name: Myles Sauceda Procedure Date: 10/03/2021 3:08 PM Date of : 1965 Admit Type: Outpatient Age: 56 Gender: Female Attending MD: Brunilda Arzola M.D. Room: [facility] ENDOSCOPY ROOM 3 Note Status: Finalized Procedure: Colonoscopy Indications: Screening for colorectal malignant neoplasm Referring MD: Vicky Donaldson, F.N.P. Providers: Brunilda Arzola M.D. Medicines: Monitored Anesthesia Care Complications: No immediate complications. Estimated blood loss: Minimal. Estimated Blood Loss: Estimated blood loss was minimal. Procedure: Pre-Anesthesia Assessment: - Immediately prior to administration of medications, the patient was re-assessed for adequacy to receive sedatives. - The risks and benefits of the procedure and the sedation options and risks were discussed with the patient. All questions were answered and informed consent was obtained. The benefits, risks and alternatives of the procedure and sedation were discussed and informed consent was obtained. All questions were answered. Please refer to the signed informed consent document in the medical record. The scope was passed under direct vision. The [id number] endoscope was introduced through the anus and advanced to the cecum, identified by appendiceal orifice and ileocecal valve. The colonoscopy was performed without difficulty. The patient tolerated the procedure well. The quality of the bowel preparation was excellent. The bowel preparation used was Miralax via single dose instruction. Findings: The perianal and digital rectal examinations were normal. A 2 mm polyp was found in the hepatic flexure. The polyp was sessile. The polyp was removed with a jumbo cold forceps. Resection and retrieval were complete. Two sessile polyps were found in the splenic flexure. The polyps were 2 mm in size. These polyps were removed with a jumbo cold forceps. Resection and retrieval were complete. A 2 mm polyp was found in the descending colon. The polyp was sessile. The polyp was removed with a jumbo cold forceps. Resection and retrieval were complete. The retroflexed view of the distal rectum and anal verge was normal and showed no anal or rectal abnormalities. The exam was otherwise without abnormality. Impression: - One 2 mm polyp at the hepatic flexure, removed with a jumbo cold forceps. Resected and retrieved. - Two 2 mm polyps at the splenic flexure, removed with a jumbo cold forceps. Resected and retrieved. - One 2 mm polyp in the descending colon, removed with a jumbo cold forceps. Resected and retrieved. - The distal rectum and anal verge are normal on retroflexion view. - The examination was otherwise normal. Recommendation: - Await pathology results. - A polyp or polyps were removed during your colonoscopy today. After the pathology result of the polyp(s)?is reviewed, the doctor who performed your colonoscopy will recommend follow-up colonoscopy to you based on current guidelines by gastroenterology societies: - If only small hyperplastic polyps from the rectum or sigmoid were removed, repeat the colonoscopy in 10 years. - If 1 or 2?polyps less than 1 cm in size are adenomas, repeat the colonoscopy in 5 years. - If 3 or more polyps are adenomas, repeat the colonoscopy in 3 years. - If there are 10 or more adenomas, repeat the colonoscopy in 1 year. - If any polyp is 10 mm or greater in size, has villous histology or high grade dysplasia, repeat?the colonoscopy in 3 years. - If a polyp greater than 2 cm was removed with a piecemeal technique, repeat the colonoscopy in 6 months to be certain that there is no residual polyp. - Sessile serrated polyps are treated like adenomas for surveillance purposes. Electronically signed by Brunilda rAzola MD Brunilda Arzola M.D. 10/03/2021 3:54:22 PM . Number of Addenda: 0 Note Initiated On: 10/03/2021 3:08 PM Recognized by the [employer] for promoting quality in endoscopy * Brunilda Arzola MD - 10/03/2021 2:53 PM CDTAssociated Order(s): EGD GI ENDOSCOPY [facility] Patient Name: Myles Sauceda Procedure Date: 10/03/2021 2:53 PM Date of : 1965 Admit Type: Outpatient Age: 56 Gender: Female Attending MD: Brunilda Arzola M.D. Room: [facility] ENDOSCOPY ROOM 3 Note Status: Finalized Procedure: Upper GI endoscopy Indications: Nausea Referring MD: Paige Simmons, Newton Mendiola M.D. Providers: Brunilda Arzola M.D. Medicines: Monitored Anesthesia Care Complications: No immediate complications. Estimated blood loss: Minimal. Estimated Blood Loss: Estimated blood loss was minimal. Procedure: The benefits, risks, and alternatives to the procedure and sedation were discussed and informed consent was obtained. The scope was passed under direct vision. The GIF [id number] endoscope was introduced through the mouth, and advanced to the second part of duodenum. The upper GI endoscopy was accomplished without difficulty. The patient tolerated the procedure well. Findings: The examined esophagus was normal. A few sessile fundic gland polyps with no bleeding and no stigmata of recent bleeding were found in the entire examined stomach. Biopsies were taken with a cold forceps for histology. Normal mucosa was found in the stomach. Biopsies were taken with a cold forceps for histology. The examined duodenum was normal. Biopsies were taken with a cold forceps for histology. Impression: - Normal esophagus. - A few fundic gland polyps. Biopsied. - Normal mucosa was found in the stomach. Biopsied. - Normal examined duodenum. Biopsied. Recommendation: - Await pathology results. Electronically signed by Brunilda Arzola MD Brunilda Arzola M.D. 10/03/2021 3:08:38 PM . Number of Addenda: 0 Note Initiated On: 10/03/2021 2:53 PM Recognized by the [employer] for promoting quality in endoscopy documented in this encounter Plan of Treatment Scheduled Procedures Name Priority Associated Diagnoses Date/Ti me ESOPHAGOGASTRODUODENOSCOPY Nausea Colon cancer screening COLONOSCOPY Nausea Colon cancer screening documented as of this encounter Procedures Procedure Name Priority Date/Time Associated Diagnosis Comments COLONOSCOPY 10/03/2021 3:08 PM CDT SURGICAL PATHOLOGY Routine 10/03/2021 3:00 PM CDT Nausea Screen for colon cancer EGD 10/03/2021 2:53 PM CDT COLON BIOPSY 10/03/2021 2:47 PM CDT Nausea Screen for colon cancer ESOPHAGOGASTRODUODENOSCOPY BIOPSY 10/03/2021 2:47 PM CDT Nausea Screen for colon cancer documented in this encounter Results * COLONOSCOPY (10/03/2021 3:08 PM CDT) Anatomical Region Laterality Modality Other Narrative Procedure Note Brunilda Arzola MD - 10/03/2021 3:08 PM CDT GI ENDOSCOPY [facility] Patient Name: Myles Sauceda Procedure Date: 10/03/2021 3:08 PM Date of : 1965 Admit Type: Outpatient Age: 56 Gender: Female Attending MD: Brunilda Arzola M.D. Room: [facility] ENDOSCOPY ROOM 3 Note Status: [...] The scope was passed under direct vision.The [id number] endoscope was introduced through the anus [...] On: 10/03/2021 3:08 PM Recognized by the [employer] for promoting quality in endoscopy us Brunilda Arzola MD ENDOSCOPY PROCEDURES Final Re sult * Surgical pathology (10/03/2021 3:00 PM CDT) Tissue (Duodenum, Biopsy) 10/03/2021 3:00 PM CDT Tissue (Gastric/Stomach biopsy) 10/03/2021 3:01 PM CDT Tissue (Polyp(s), colon/colorectal, esophageal, gastric) 10/03/2021 3:03 PM CDT Tissue (Colon, Biopsy) 10/03/2021 3:23 PM CDT Tissue (Colon, Biopsy) 10/03/2021 3:25 PM CDT Tissue (Colon, Biopsy) 10/03/2021 3:27 PM CDT Narrative PATHOLOGY [facility] - 10/07/2021 11:27 AM CDT EPIC results best viewed via link to PDF [facility] [place] [address] Note to Patients: This report may contain a detailed description of human tissue sent by a health care provider to the laboratory for pathologic evaluation. The content of this report is essential for diagnosis and may provide important critical findings. This information may be unfamiliar to patients to review without a medical professional present. It is advised that the patient review this report in the presence of a health care provider who can answer questions and explain the details. SURGICAL PATHOLOGY REPORT FINAL Patient Name: ?? MYLES SAUCEDA Gender: ??F : ??1965 (Age: 56) Address: ??[address] [place] [address] [place], [place] ??[address] Hospital #: ??[id number] Taken:10/03/2021 Received:10/03/2021 Reported: 10/07/2021 Patient Type: [facility] SDS ?? Service: Gastroenterology Location: Physician(s): ??Brunilda Arzola M.D. Newton Mendiola M.D. Vicky Donaldson, F.N.P. Diagnosis: A. ??Small intestine, duodenum, biopsy ? - Normal duodenal mucosa B. ??Stomach, random, biopsy ? - Normal oxyntic mucosa ? - No H. pylori organisms are identified by H&E examination C. ??Stomach, polyp, polypectomy ? - Fundic gland polyps D. ??Large intestine, hepatic flexure, polyp, polypectomy ? - Tubular adenoma ? E. ??Large intestine, splenic flexure, polyps, polypectomy ? - Tubular adenoma F. ??Large intestine, descending, polyp, polypectomy ? - Polypoid colonic mucosa clnh/10/06/2021 16:31 By this signature, I attest that the above diagnosis is based upon my personal examination of the slides(and/or other material indicated in the diagnosis). Lona Cohen MD Report Electronically Reviewed and Signed Out By ??Lona Cohen MD 10/07/2021 11:27:35 Microscopic Description and Comment: Microscopic examination substantiates the above cited diagnosis. Musa Michael D.O. History: The patient is a 56-year-old woman presenting with nausea and for screening for colon cancer. ??Operative Procedure: ??Upper endoscopy with biopsy and colon biopsy. Specimen(s) Received: A: Cold biopsies duodenum B: Cold biopsies random gastric C: Cold biopsies gastric polyps D: Cold biopsy hepatic flexure polyp E: Cold biopsies splenic flexure polyps X2 F: Cold biopsy descending colon polyp Gross Description: Received in six formalin jars labeled with the patient's identifiers. A. ??Labeled A. ??Cold biopsies duodenum and consists of multiple lopez-pink fragment(s) of soft tissue measuring 1.4 x 0.6 x 0.2 cm in aggregate. ??Submitted in A1. ??Jar 0 B. ??Labeled B. ??Cold biopsies random gastric and consists of multiple lopez fragment(s) of soft tissue measuring 1.0 x 0.7 x 0.2 cm in aggregate. ??Submitted in B1. ??Jar 0 C. ??Labeled C. ??Cold biopsies gastric polyps and consists of multiple lopez fragment(s) of soft tissue measuring 0.8 x 0.5 x 0.2 cm in aggregate. ??Submitted in C1. ??Jar 0 D. ??Labeled D. ??Cold biopsy hepatic flexure polyp and consists of a single lopez-pink fragment(s) of soft tissue measuring 0.5 cm in greatest dimension. ??Submitted in D1. ??Jar 0 E. ??Labeled E. ??Cold biopsy splenic flexure polyps x2 and consists of two lopez fragment(s) of soft tissue measuring 0.4 and 0.6 cm each in greatest dimension. ??Submitted in E1. ??Jar 0 F. ??Labeled F. ??Colon biopsy descending colon polyp and consists of a single lopez fragment(s) of soft tissue measuring 0.4 cm in greatest dimension. ??Submitted in F1. ??Jar 0 ?? sxst/10/04/2021 11:54 PA(s): Emperatriz Nina By this signature, I attest that the above diagnosis is based upon my personal examination of the slides(and/or other material). Addenda/Procedures The performance characteristics of some immunohistochemical stains, fluorescence in-situ hybridization tests and immunophenotyping by flow cytometry cited in this report (if any) were determined by the Surgical Pathology and Flow Cytometry Departments at [facility] as part of an ongoing quality control supervisor program and in compliance with federally mandated regulations drawn from the Clinical Laboratory Improvement Act of 1988 (CLIA '88). ??Some of these tests rely on the use of analyte specific reagents and are subject to specific labeling requirements by the US Food and Drug Administration. ??Such diagnostic tests may only be performed in a facility that is certified by the Department of Health and Human Services as a high complexity laboratory under CLIA '88. ??The FDA has determined that such clearance or approval is not necessary. ??This test is used for clinical purposes. ??It should not be regarded as investigational or for research. ??Nevertheless, federal rules concerning the medical use of analyte specific reagents require that the following disclaimer be attached to the report: This test was developed and its performance characteristics determined by the Surgical Pathology and Flow Cytometry Departments of [facility]. ??It has not been cleared or approved by the U. S. Food and Drug Administration. IMAGES AND SCANNED DOCUMENTS, IF INCLUDED, ONLY VIEWABLE IN PDF VERSION OF REPORT Brunilda Arzola MD LAB PATHOLOGY ORDERABLES Arlen saenz Result PATHOLOGY [facility] 3rd Floor [place], [place] [phone] * EGD (10/03/2021 2:53 PM CDT) Anatomical Region Laterality Modality Other Narrative Procedure Note Brunilda Arzola MD - 10/03/2021 2:53 PM CDT GI ENDOSCOPY [facility] Patient Name: Myles Sauceda Procedure Date: 10/03/2021 2:53 PM Date of : 1965 Admit Type: Outpatient Age: 56 Gender: Female Attending MD: Brunilda Arzola M.D. Room: [facility] ENDOSCOPY ROOM 3 Note Status: Finalized Procedure: Upper GI endoscopy Indications: Nausea Referring MD: Douglas Simmons.Marlo, Newton Mendiola M.D. Providers: Brunilda Arzola M.D. Medicines: Monitored Anesthesia Care Complications: No immediate complications. Estimated blood loss: Minimal. Estimated Blood Loss: Estimated blood loss was minimal. Procedure: The benefits, risks, and alternatives to theprocedure and sedation were discussed and informed consentwas obtained. The scope was passed under direct vision. The GIF [id number] endoscope was introducedthrough the mouth, and advanced to the second part of duodenum. The upper GI endoscopy was accomplished without difficulty. The patient tolerated the procedure well. Findings: The examined esophagus was normal. A few sessile fundic gland polyps with no bleeding and no stigmata of recent bleeding were found in the entire examined stomach. Biopsieswere taken with a cold forceps for histology. Normal mucosa was found in the stomach. Biopsies were taken with acold forceps for histology. The examined duodenum was normal. Biopsies were taken with a cold forceps for histology. Impression: - Normal esophagus. - A few fundic gland polyps. Biopsied. - Normal mucosa was found in the stomach.Biopsied. - Normal examined duodenum. Biopsied. Recommendation: - Await pathology results. Electronically signed by Brunilda Arzola MD Brunilda Arzola M.D. 10/03/2021 3:08:38 PM . Number of Addenda: 0 Note Initiated On: 10/03/2021 2:53 PM Recognized by the [employer] for promoting quality in endoscopy Brunilda Arzola MD ENDOSCOPY PROCEDURES Final Re sult documented in this encounter Visit Diagnoses Diagnosis Nausea Nausea alone Screen for colon cancer Special screening for malignant neoplasms, colon Nausea Nausea alone Screen for colon cancer Special screening for malignant neoplasms, colon documented in this encounter Administered Medications Inactive Administered Medications - up to 3 most recent administrations Medication Order MAR Action Action Date Dose Rate Site ondansetron (ZOFRAN) injection 4 mg 4 mg, intravenous, Administer over 2 Minutes, Every 6 hours PRN, nausea, vomiting, Starting on Sarha 10/03/21 at 1358, Pre-Procedure (GI) sodium chloride 0.9% flush 0.5-20 mL 0.5-20 mL, intra-catheter, As needed, line care, Starting on Sarah 10/03/21 at 1358, Pre-Procedure (GI), Flush volume based on line type and size. Flush before and after each use. , Indications: FlushingIndications:Flushing sodium chloride 0.9% infusion 30 mL/hr, intravenous, Continuous, Starting on Sarah 10/03/21 at 1430, Pre-Procedure (GI) Restarted 10/03/2021 2:53 PM CDT Rate/Dose Verify 10/03/2021 2:42 PM CDT 30 mL/h r New Bag 10/03/2021 2:16 PM CDT 30 mL/hr 30 mL/hr documented in this encounter Discontinued Medications Medication Sig Discontinue Reason Start Date End Da te divalproex DR (Depakote) 125 mg EC tablet Take 1 tablet (125 mg total) by mouth 2 (two) times a day Stop Taking at Discharge 08/27/2021 10/03/2021 documented as of this encounter Historical Medications * This list may reflect changes made after this encounter. nitrofurantoin monohydrate (MACROBID) 100 mg capsule TAKE 1 CAPSULE BY MOUTH EVERY 12 HOURS FOR 5 DAYS. MUST ADMINISTER WITH A MEAL/FOOD 08/28/2021 2 added in this encounter Active and Recently Administered Medications Times are shown in CDT. Continuous Medication Order 10/01/2021 10/02/2021 10/03/2021 sodium chloride 0.9% infusion (CANCELED) 30 mL/hr, intravenous, Continuous, Starting on Sarah 10/03/21 at 1430, Pre-Procedure (GI) 1416 (New Bag - Prov ider: Noemy Mendoza RN)1442 (Rate/Dose Verify - Provider: Malina Gonsales CRNA)1452 (Paused - Provider: Malina Gonsales CRNA - Comment: Switch to gravity)1453 (Restarted - Provider: Malina Gonsales CRNA)1541 (Due: Stopped - Provider: Malina Gonsales CRNA) PRN Medication Order 10/01/2021 10/02/2021 10/03/2021 ondansetron (ZOFRAN) injection 4 mg 4 mg, intravenous, Administer over 2 Minutes, Every 6 hours PRN, nausea, vomiting, Starting on Sarah 10/03/21 at 1358, Pre-Procedure (GI) ondansetron (ZOFRAN) injection 4 mg 4 mg, intravenous, Administer over 2 Minutes, Every 30 min PRN, nausea, vomiting, Starting on Sarah 10/03/21 at 1553, For 2 doses, Recovery (GI), Indications: Nausea and Vomiting sodium chloride 0.9% flush 0.5-20 mL 0.5-20 mL, intra-catheter, As needed, line care, Starting on Sarah 10/03/21 at 1358, Pre-Procedure (GI), Flush volume based on line type and size. Flush before and after each use. , Indications: Flushing documented in this encounter Orders Medications Ordered That Allan ht Not Have Been Administered Count Last Ordered Date First Ordered Date ondansetron (ZOFRAN) injection 4 mg 2 10/03 sodium chloride 0.9% flush 0.5-20 mL 1 09/14 Discharge Count Last Ordered Date First Orde red Date DISCHARGE PATIENT 1 10/03/2021 documented in this encounter Care Teams Medical Collections Specialist Relationship Specialty Start Date End Date Newton Mendiola MD [address] [address] PCP - General 06/09/16 Sly Cade MD [address] [address] Referring Physician Cardiology 12/07/18 documented as of this encounter
--- OUTSIDE RECORDS SUMMARY | 2024-03-18 05:00 | XMS_ITS | Encounter Summary ---
Author Organization [facility] Healthcare Address [address] [place] [address] Care Team Providers Care Veneer Supervisor Name Role Phone Newton Mendiola MD Primary Care Provider [phone] Sly Cade MD Unavailable [phone] Reason for Visit * Auth/Cert Specialty Diagnoses / Procedures Referred By Contac t Referred To Contact Diagnoses Nausea Screen for colon cancer Nausea [R11.0] Screen for colon cancer [Z12.11] Procedures [place] ESOPHAGOGASTRODUODENOSCOPY TRANSORAL DIAGNOSTIC [place] COLONOSCOPY FLX DX W/COLLJ SPEC WHEN PFRMD [place] EGD TRANSORAL BIOPSY SINGLE/MULTIPLE [place] COLONOSCOPY W/BIOPSY SINGLE/MULTIPLE [place] EGD TRANSORAL BIOPSY SINGLE/MULTIPLE [place] COLONOSCOPY W/BIOPSY SINGLE/MULTIPLE ESOPHAGOGASTRODUODENOSCOPY OA/DW COLONOSCOPY OA/DW Referral ID Status Reason Start Date Expiration Date Visits Re quested Visits Authorized [id number] 1 1 Encounter Details Date Type Department Care Team (Latest Contact Info) Description 10/03/2021 1:44 PM CDT - 10/03/2021 4:19 PM CDT Hospital Encounter [facility] [address] [facility] [address] [place] [address] Rehan Andrews MD [address] [facility] [address] [place] [address] Nausea; Screen for colon cancer Discharge Disposition: Discharge to home or self [...] on file 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 The [id number] endoscope was introduced through the anus and [...] On: 10/03/2021 3:08 PM Recognized by the [place] [employer] for promoting quality [...] GI endoscopy Indications: Nausea Referring MD: Douglas Simmons.Cash.Mehrdad, Newton Mendiola M.D. Providers: Brunilda Arzola M.D. Medicines: Monitored Anesthesia Care Complications: No immediate complications. Estimated blood loss: Minimal. Estimated Blood Loss: Estimated blood loss was minimal. Procedure: The benefits, risks, and alternatives to the procedure and sedation were discussed and informed consent was obtained. The scope was passed under direct vision. The GIF [id number] endoscope was introduced through the mouth, and [...] On: 10/03/2021 2:53 PM Recognized by the [place] [employer] for promoting quality [...] The scope was passed under direct vision.The [id number] endoscope was introduced through the anus [...] On: 10/03/2021 3:08 PM Recognized by the [place] [employer] for promoting quality [...] Biopsy) 10/03/2021 3:27 PM CDT Narrative PATHOLOGY [facility] - 10/07/2021 11:27 AM CDT EPIC results best viewed via link to PDF [facility] of Surgical Pathology [address] [place] [address] Note to Patients: This report may contain [...] SURGICAL PATHOLOGY REPORT FINAL Patient Name: ?? MYLSE SAUCEDA Gender: ??F : ??1965 (Age: 56) Address: ??[address] [place] [address] [address], [place], [place] ??[address] Hospital #: ??[id number] Taken:10/03/2021 Received:10/03/2021 Reported: 10/07/2021 Patient Type: [facility] SDS ?? Service: Gastroenterology Location: Physician(s): ??Brunilda [...] polyp, polypectomy ? - Polypoid colonic mucosa clma/10/06/2021 16:31 By this signature, I attest that [...] Surgical Pathology and Flow Cytometry Departments at [facility] as part of an ongoing quality control clerk program and in compliance with federally mandated [...] Surgical Pathology and Flow Cytometry Departments of [facility]. ??It has not been cleared or approved by the U. S. Food and Drug Administration. IMAGES AND SCANNED DOCUMENTS, IF INCLUDED, ONLY VIEWABLE IN PDF VERSION OF REPORT Brunilda Arzola MD LAB PATHOLOGY ORDERABLES Arlen l Result PATHOLOGY [facility] 3rd Floor [place], [place] [phone] * EGD (10/03/2021 2:53 PM CDT) Anatomical [...] GI endoscopy Indications: Nausea Referring MD: Douglas Simmons.Cash.Mehrdad, Newton Mendiola M.D. Providers: Brunilda Arzola M.D. Medicines: Monitored Anesthesia Care Complications: No immediate complications. Estimated blood loss: Minimal. Estimated Blood Loss: Estimated blood loss was minimal. Procedure: The benefits, risks, and alternatives to theprocedure and sedation were discussed and informed consentwas obtained. The scope was passed under direct vision. The GIF [id number] endoscope was introducedthrough the mouth, and advanced [...] On: 10/03/2021 2:53 PM Recognized by the [place] [employer] for promoting quality [...] on Sarah 10/03/21 at 1358, Pre-Procedure (GI) sodium chloride [...] 10/03/2021 documented in this encounter Care Teams Veneer Supervisor Relationship Specialty Start Date End Date Newton Mendiola MD [address] [facility] [address] [place] [address] PCP - General 06/09/16 Sly Cade MD [address] [facility] [address] [place] [address] Referring Physician Cardiology 12/07/18 documented as of this encounter
--- OUTSIDE RECORDS SUMMARY | 2024-03-18 05:00 | XMS_ITS | Encounter Summary ---
Author Organization [facility] Healthcare Address [address] [place] [address] Care Team Providers Care Cnc Milling Machinist Name Role Phone Newton Mendiola MD Primary Care Provider [phone] Sly Cade MD Unavailable [phone] Reason for Visit * Auth/Cert Specialty Diagnoses / Procedures Referred By Contac t Referred To Contact Diagnoses Nausea Screen for colon cancer Nausea [R11.0] Screen for colon cancer [Z12.11] Procedures [place] ESOPHAGOGASTRODUODENOSCOPY TRANSORAL DIAGNOSTIC CA COLONOSCOPY FLX DX W/COLLJ SPEC WHEN PFRMD [place] EGD TRANSORAL BIOPSY SINGLE/MULTIPLE CA COLONOSCOPY W/BIOPSY SINGLE/MULTIPLE CA EGD TRANSORAL BIOPSY SINGLE/MULTIPLE CA COLONOSCOPY W/BIOPSY SINGLE/MULTIPLE ESOPHAGOGASTRODUODENOSCOPY OA/DW COLONOSCOPY OA/DW Referral ID Status Reason Start Date Expiration Date Visits Re quested Visits Authorized [id number] 1 1 Encounter Details Date Type Department Care Team (Late st Contact Info) Description 10/03/2021 2:42 PM CDT Anesthesia Event [facility] [address] [address] Soy Evans MD [address] [place] [address] Malina Gonsales CRNA [address] [place] [address] Anesthesia Record Procedure Summary Procedure Name Responsible Anesthesiologist Anesthesia Start Time Anesthesia Stop Time ESOPHAGOGASTRODUODENOSCOPY BIOPSY (Left) Soy Evans MD 10/03/21 1442 10/03/21 1542 Events Date Time Event Comment 10/03/2021 1428 1442 An Start 1447 In Room 1447 An Start Data 1453 An Data Art 1453 Start Supplemental O2 1453 Patient Positioned Laterally 1453 Bite Block Placed 1453 An Induction The patient was reevaluated immediately before moderate or deep sedation use and before anesthesia induction. 1454 Anesthesia Ready 1457 Proc Start 1530 Proc Fin 1534 an stop data 1535 Out of Room 1542 Handoff to RN I completed my handoff [...] disposition at the time of handoff: PACU 1542 An Stop Meds Name Total lidocaine (cardiac) syringe 2 % 100 mg propofol 120 mg propofol 356.59 mg sodium chloride 0.9% infusion 0 mL * Agents Name O2% N2O O2 * Blood No blood administrations on file. 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 Gender Identity Not on file Sexual Orientation Not on file documented as of this encounter OR Notes * Anesthesia Postprocedure Evaluation - Soy Evans MD - 10/03/2021 4:19 PM CDT Patient: Katy Sauceda Procedure Summary Date: 10/03/21 Room / Location: [facility] ROOM 3 / [facility] Anesthesia Start: 1442 Anesthesia Stop: 1542 Procedures: ESOPHAGOGASTRODUODENOSCOPY BIOPSY (Left ) COLON BIOPSY (Left Colon) Diagnosis: Nausea Screen for colon cancer (Nausea [R11.0]) (Screen for colon cancer [Z12.11]) Providers: Brunilda Arzola MD Responsible Provider: Soy Evans MD Anesthesia Type: MAC ASA Status: 3 Anesthesia Type: MAC Last vitals BP 136/74 Pulse 87 Temp 36.8 ??C (98.2 ??F) (Temporal) Resp 14 SpO2 100% Anesthesia Post Evaluation Patient location during evaluation: PACU Patient participation: complete - patient participated Level of consciousness: fully awake Pain management: adequate Airway patency: adequate Cardiovascular status: acceptable and hemodynamically stable Respiratory status: acceptable and room air Hydration status: acceptable Pt is: normothermic Nausea/Vomiting status: none No complications documented. * Anesthesia Preprocedure Evaluation - Soy Evans MD - 10/03/2021 2:00 PM CDT Images from the original note were not included. Anesthesia Evaluation Katy Sauceda is a 56 y.o. female Procedure(s): ESOPHAGOGASTRODUODENOSCOPY OA/DW COLONOSCOPY OA/DW Pre-Op Diagnosis Codes: * Nausea [R11.0] * Screen for colon cancer [Z12.11] Patient Active Problem List Diagnosis ??? LV [...] pain ??? Moderate recurrent major depression (HCC) Past Medical History: Diagnosis Date ??? CHF (congestive heart failure) (CMS/HCC) (HCC) ??? COVID-19 virus infection 01/15/2021 ??? Hodgkin lymphoma (HCC) 09/09/2016 ??? Hypertension No past surgical history on file. OB History No obstetric history on file. [...] mg 24 hr tablet 07/29/21 -- Newton Mendiola MD Take 1 tablet (300 mg total) [...] 40 mg tablet 12/17/20 12/17/21 Sheila So, DO Take 1 tablet (40 mg total) by mouth daily fluticasone propionate (FLONASE) 50 mcg/actuation nasal spray () 12/11/20 08/27/21 Sheila So, DO Administer 2 sprays into each nostril daily isosorbide mononitrate ER (IMDUR) 30 mg 24 hr tablet 08/20/20 -- Matt Remy MD TAKE 1 TABLET BY MOUTH EVERY DAY loratadine (CLARITIN) 10 mg tablet -- -- ProviderNaomy MD losartan (COZAAR) 50 mg tablet 05/24/21 -- Newton Mendiola MD Take 1 tablet (50 mg total) by mouth daily metoprolol XL (TOPROL-XL) 100 mg 24 hr tablet () 05/28/20 08/27/21 Matt Remy MD Take 1 tablet (100 mg total) by mouth daily ondansetron (ZOFRAN) 4 mg tablet 07/29/21 -- [...] 3350 4L spironolactone (ALDACTONE) 25 mg tablet () 06/14/20 08/27/21 Matt Remy MD Take 1 tablet (25 mg total) by mouth daily valACYclovir (VALTREX) 1 gram tablet 06/27/21 -- Newton Mendiola MD Take 2 tabs q 12 hours x 1 day. Flag for Review Taking? Last Dose Start Date End Date Provider divalproex DR (Depakote) 125 mg EC tablet 08/27/21 -- Vicky Donaldson NP Take 1 tablet (125 mg total) by mouth 2 (two) times a day Current Facility-Administered Medications: ??? ondansetron (ZOFRAN) injection 4 mg, 4 mg, intravenous, Q6H PRN ??? sodium chloride 0.9% flush 0.5-20 mL, 0.5-20 mL, intra-catheter, PRN ??? sodium chloride 0.9% infusion, 30 mL/hr, intravenous, Continuous Social History Tobacco Use Smoking Status Former Smoker ??? Packs/day: 0.50 ??? Years: 10.00 ??? Pack years: 5.00 ??? Types: Cigarettes ??? Quit date: 1999 ??? Years since quittin.5 Smokeless Tobacco Never Used Alcohol Use: Not on file Substance and Sexual Activity Drug Use Not Currently Family History Problem Relation Age of Onset [...] and allergies reviewed. Attestation: This PAT evaluation 10/03/2021. Anesthesia Plan ASA 3 My patient is approved for the Anesthesia Controlled Medication protocol when under care of a MANAGER RADIATION Planned anesthesia: MAC Induction: Induction: intravenous. Postoperative Plan: No plan for postoperative opioid use. Patient's planned disposition post procedure is Outpatient. [...] MAR Action Action Date Dose Rate Site lidocaine (cardiac) (XYLOCAINE) preservative free injection intravenous, As needed, Starting on Sarah 10/03/21 at 1453, Anesthesia Intra-op, Indications: Ventricular ArrhythmiasIndications:Ventricular Arrhythmias Given 10/03/2021 2:53 PM CDT 100 mg propofoL (DIPRIVAN) 10 mg/mL IV intravenous, As needed, Starting on Sarah 10/03/21 at 1453, Anesthesia Intra-op Given 10/03/2021 3:10 PM CDT 20 mg Given 10/03/2021 3:03 PM CDT 20 mg Given 10/03/2021 2:56 PM CDT 20 mg propofoL (DIPRIVAN) 10 mg/mL IV intravenous, Continuous PRN, Starting on Sarah 10/03/21 at 1453, Anesthesia Intra-op Rate/Dose Change 10/03/2021 3:18 PM CDT 100 mcg/kg/min 50.64 mL/hr New Bag 10/03/2021 2:53 PM CDT 125 mcg/kg/min 63.3 mL/h r sodium chloride 0.9% infusion 30 mL/hr, intravenous, Continuous, Starting on Sarah 10/03/21 at 1430, Pre-Procedure (GI) Restarted 10/03/2021 2:53 PM CDT Rate/Dose Verify 10/03/2021 2:42 PM CDT 30 mL/h r New Bag 10/03/2021 2:16 PM CDT 30 mL/hr 30 mL/hr documented in this encounter Care Teams Cnc Milling Machinist Relationship Specialty Start Date End Date Newton Mendiola MD [address] [address] PCP - General 06/09/16 Sly Cade MD [address] [address] Referring Physician Cardiology 12/07/18 documented as of this encounter
--- OUTSIDE RECORDS SUMMARY | 2024-03-18 05:00 | XMS_ITS | Encounter Summary ---
Author Organization [facility] Address [address] [place] [address] Care Team Providers Care Wash Barrel Leader Name Role Phone Newton Mendiola MD Primary Care Provider [phone] Sly Cade MD Unavailable [phone] Reason for Visit * Reason Comments Abdominal Pain Mid abdomen with joan sea Depression Encounter Details Date Type Department Care Team (Late st Contact Info) Description 08/27/2021 11:15 AM CDT Office Visit [facility] [address] [facility] [address] [place] [id number] Vicky Donaldson, BRIT [address] [facility] [address] [place], [place] [id number] Prediabetes (Primary Dx); Nausea; Abdominal pain; Colon cancer screening; Moderate recurrent major depression (HCC) Social History Tobacco Use Types Packs/Day [...] on file 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 Gender Identity Not on file Sexual Orientation Not on file documented as of this encounter Last Filed Vital Signs Vital Sign Reading Time Taken Comments Blood Pressure 118/64 08/27/2021 11:19 AM CDT Pulse 85 08/27/2021 11:19 AM CDT Temperature - - Respiratory Rate - - Oxygen Saturation 97% 08/27/2021 11:19 AM CDT Inhaled Oxygen Concentration - - Weight 83.9 kg (185 lb) 08/27/2021 11:19 AM CDT Height 165.1 cm (5' 5 ) 08/27/2021 11:19 AM CDT Body Mass Index 30.79 08/27/2021 11:19 AM CDT documented in this encounter Ordered Prescriptions Prescription Sig Dispense Quantity Refills Last Filled Start Date End Date divalproex DR (Depakote) 125 mg EC tablet Take 1 tablet (125 mg total) by mouth 2 (two) times a day 60 tablet 1 08/27/2021 10/03/2021 documented in this encounter Progress Notes * Vicky Donaldson, FISHER [employer]ING - 08/27/2021 11:15 AM CDT Office Visit Katy Sauceda is a 56 y.o. female here for Abdominal Pain (Mid abdomen with nausea) and Depression HPI 55 yo female with HLD, HTN, MDD, Vitamin D deficiency, prediabetes and cardiomyopathy. Hx of Hodgkin d/se (1992). Nov 2020 A1C 6.2%. She presents today with c/o worsening nausea over past 2 months. No GERD. No med changes. BM's are chronically irregular, unchanged. Relieved intermittently with zofran PRN. Also reports very labile and volatile moods for years . Family also acknowledges this. At times will stay in bed and neglect self care/hygiene, and at others will only sleep 3 hours nightly for daysat a time and going on shopping sprees spending hundreds on unneeded items. Is on 300mg wellbutrin correction. Denies SI/HI. Did grief counseling after loss of daughter, reports this started prior to her loss. Current Medications Current Outpatient Medications: ??? aspirin 81 mg tablet, Take 81 mg by mouth daily , Disp: , Rfl: ??? atorvastatin (LIPITOR) 40 mg tablet, Take 1 tablet (40 mg total) by mouth nightly, Disp: 90 tablet, Rfl: 1 ??? buPROPion XL (WELLBUTRIN XL) 300 mg 24 hr tablet, Take 1 tablet (300 mg total) by mouth every morning, Disp: 90 tablet, Rfl: 0 ??? dapagliflozin (FARXIGA) 10 mg tablet, Take 1 tablet (10 mg total) by mouth daily, Disp: 90 tablet, Rfl: 3 ??? ergocalciferol (VITAMIN D) 50,000 unit capsule, TAKE 1 CAPSULE (50,000 UNITS TOTAL) BY MOUTH ONCE A WEEK FRIDAYS, Disp: 4 capsule, Rfl: 5 ??? famotidine (PEPCID) 40 mg tablet, Take 1 tablet (40 mg total) by mouth daily, Disp: 30 tablet, Rfl: 11 ??? fluticasone propionate (FLONASE) 50 mcg/actuation nasal spray, Administer 2 sprays into each nostril daily, Disp: 16 g, Rfl: 11 ??? isosorbide mononitrate ER (IMDUR) 30 mg 24 hr tablet, TAKE 1 TABLET BY MOUTH EVERY DAY, Disp: 90 tablet, Rfl: 1 ??? loratadine (CLARITIN) 10 mg tablet, Take 10 mg by mouth daily, Disp: , Rfl: ??? losartan (COZAAR) 50 mg tablet, Take 1 tablet (50 mg total) by mouth daily, Disp: 90 tablet, Rfl: 0 ??? metoprolol XL (TOPROL-XL) 100 mg 24 hr tablet, Take 1 tablet (100 mg total) by mouth daily, Disp: 90 tablet, Rfl: 3 ??? ondansetron (ZOFRAN) 4 mg tablet, TAKE 1 TABLET BY MOUTH EVERY 8 HOURS NEEDED FOR NAUSEA ANDVOMITING, Disp: 20 tablet, Rfl: 1 ??? pantoprazole DR (PROTONIX) 40 mg EC tablet, TAKE 1 TABLET BY MOUTH EVERY DAY, Disp: 90 tablet, Rfl: 1 ??? spironolactone (ALDACTONE) 25 mg tablet, Take 1 tablet (25 mg total) by mouth daily, Disp: 90 tablet, Rfl: 3 ??? valACYclovir (VALTREX) 1 gram tablet, Take 2 tabs q 12 hours x 1 day., Disp: 12 tablet, Rfl: 1 ??? divalproex DR (Depakote) 125 mg EC tablet, Take 1 tablet (125 mg total) by mouth 2 (two) times a day, Disp: 60 tablet, Rfl: 1 Allergies Allergies Allergen Reactions ??? Codeine Other (See comments) and Vomiting Reaction: RASH;, ??? Hydrocodone Vomiting ??? Penicillin Other (See comments) Reaction: UNKNOWN, Past Medical and Surgical History: Patient Active Problem List Diagnosis ??? LV [...] Hypertension No past surgical history on file. Family History: Family History Problem Relation Age of Onset ??? Hypertension Mother ??? Hyperlipidemia Mother ??? Hypertension Father ??? Hyperlipidemia Father ??? Diabetes Father Social History: Social History Tobacco Use ??? Smoking status: Former Smoker Packs/day: 0.50 Years: 10.00 Pack years: 5.00 Types: Cigarettes Quit date: 2000 Years since quittin.4 ??? Smokeless tobacco: Never Used Substance Use Topics ??? Alcohol use: No ??? Drug use: Not Currently Social History Social History Narrative ??? Not on file There is no immunization history on file for this patient. Assessment/Plan Review of Systems Review of Systems Constitutional: Negative for appetite change, chills, fever and unexpected weight change. HENT: Negative for hearing loss, trouble swallowing and voice change. Eyes: Negative for visual disturbance. Respiratory: Negative for cough and shortness of breath. Cardiovascular: Negative for chest pain, palpitations and leg swelling. Gastrointestinal: Positive for nausea. Negative for blood in stool, constipation and diarrhea. Genitourinary: Negative for dysuria. Musculoskeletal: Negative for gait problem. Skin: Negative for rash. Neurological: Negative for seizures and headaches. Psychiatric/Behavioral: Positive for behavioral problems and sleep disturbance. Physical Exam Physical Exam Constitutional: Appearance: Normal appearance. She is obese. She is not ill-appearing. HENT: Head: Normocephalic. [...] content normal. Judgment: Judgment normal. Vitals BP 118/64 (BP Location: Left arm, Patient Position: Sitting) Pulse 85 Ht 165.1 cm (5' 5 ) Wt 83.9 kg (185 lb) SpO2 97% BMI 30.79 kg/m?? Wt Readings from Last 3 Encounters: 08/27/21 83.9 kg (185 lb) 07/16/21 87 kg (191 lb 12.8 oz) 06/03/21 84.4 kg (186 lb) Body mass index is 30.79 kg/m??. Assessment and Plan Diagnoses and all orders for this visit: Prediabetes (Primary) Assessment & Plan: A1C stable at 6.2% If on 10mg Farxiga Orders: - POCT hemoglobin A1c - POCT glucose - POCT lipid panel Nausea - Comprehensive metabolic panel; Future - CBC with auto differential; Future - Direct Scheduling Case Request: ESOPHAGOGASTRODUODENOSCOPY, COLONOSCOPY Abdominal pain Assessment & Plan: Labs, EGD/COLO Orders: - Amylase; Future - Lipase; Future Colon cancer screening - Direct Scheduling Case Request: ESOPHAGOGASTRODUODENOSCOPY, COLONOSCOPY Moderate recurrent major depression (HCC) Assessment & Plan: Trial low dose depakote, to let us know weekly how she is doing Psych referral Orders: - Ambulatory referral to Psychiatry; Future Other orders - divalproex DR (Depakote) 125 mg EC tablet; Take 1 tablet (125 mg total) by mouth 2 (two) times a day Recommendations and Follow up Vicky Donaldson NP documented in this encounter Miscellaneous Notes * Assessment & Plan Note - Vicky Donaldson NP - 08/27/2021 12:30 PM CDT Associated Problem(s): Moderate recurrent major depression (HCC) Trial low dose depakote, to let us know weekly how she is doing Psych referral * Assessment & Plan Note - Vicky Donaldson NP - 08/27/2021 12:30 PM CDT Associated Problem(s): Abdominal pain (Resolved 08/28/2023) Labs, EGD/COLO * Assessment & Plan Note - Vicky Donaldson NP - 08/27/2021 12:29 PM CDT Associated Problem(s): Type 2 diabetes mellitus without complication, without long-term current useof insulin (CMS/HCC) (HCC) A1C stable at 6.2% If on 10mg Farxiga documented in this encounter Plan of Treatment Scheduled Orders Name Type Priority Associated Diagnoses Orde r Schedule Comprehensive metabolic panel Lab Routine Nausea Expected: 08/27/2021, Expires: 08/27/2022 CBC with auto differential Lab Routine Nausea Expected: 08/27/2021, Expires: 08/27/2022 Amylase Lab Routine Abdominal pain Expected: 08/27/2021, Expires: 08/27/2022 Lipase Lab Routine Abdominal pain Expected: 08/27/2021, Expires: 08/27/2022 Scheduled Procedures Name Priority Associated Diagnoses Date/Ti me ESOPHAGOGASTRODUODENOSCOPY Nausea Colon cancer screening COLONOSCOPY Nausea Colon cancer screening documented as of this encounter Procedures Procedure Name Priority Date/Time Associated Diagnosis Comments POCT GLUCOSE 75408 Routine 08/27/2021 12 :38 PM CDT Prediabetes POCT LIPID PANEL Routine 08/27/2021 12:3 8 PM CDT Prediabetes POCT HEMOGLOBIN A1C Routine 08/27/2021 1 2:31 PM CDT Prediabetes documented in this encounter Results * POCT lipid panel (08/27/2021 12:38 PM CDT) HDL, POC 30 mg/dL Triglycerides, POC 130 mg/dL LDL Cholesterol POC 68 mg/dL Chol/HDL Ratio, POC 4.1 Non-HDL Cholesterol, POC 93 mg/dL Cholesterol Total, POC 123 mg/dL Capillary blood 08/27/2021 1 2:38 PM CDT Vicky Donaldson FISHER DIVING POINT OF CARE TEST ORDER FRANCISCO Final Result * POCT glucose (08/27/2021 12:38 PM CDT) Glucose Blood, POC 112 mg/dL Blood specimen (specimen) 08/27/2021 12:38 PM CDT Vicky Donaldson FISHER [employer]ING POINT OF CARE TEST ORDER FRANCISCO Final Result * POCT hemoglobin A1c (08/27/2021 12:31 PM CDT) Hemoglobin A1C, POC 6.2 Blood specimen (specimen) 08/27/2021 12:31 PM CDT Vicky Donaldson [employer]ING POINT OF CARE TEST ORDER FRANCISCO Final Result documented in this encounter Visit Diagnoses Diagnosis Prediabetes- Primary Other abnormal glucose Nausea Nausea alone Abdominal pain Abdominal pain, unspecified site Colon cancer screening Special screening for malignant neoplasms, colon Moderate recurrent major depression (HCC) Major depressive disorder, recurrent episode, moderate documented in this encounter Discontinued Medications Medication Sig Discontinue Reason Start Date End Da te Eliquis 5 mg tablet TAKE 1 TABLET BY MOUTH TWICE A DAY 04/08/2021 08/27/2021 documented as of this encounter Orders Case Request Count Last Ordered Date First Orde red Date GI DIRECT ACCESS CASE REQUEST 1 08/27/2021 documented in this encounter Care Teams Wash Barrel Leader Relationship Specialty Start Date End Date Newton Mendiola MD [address] [address] PCP - General 06/09/16 Sly Cade MD [address] [address] Referring Physician Cardiology 12/07/18 documented as of this encounter
--- OUTSIDE RECORDS SUMMARY | 2024-03-18 05:00 | XMS_ITS | Encounter Summary ---
Author Organization [facility] Address [address] [place] [address] Phone Care Team Providers Care Media Theorist And Author Of Name Role Phone Newton Mendiola MD Primary Care Provider [phone] Sly Cade MD Unavailable [phone] Reason for Visit * Reason Onset Date Comments surgery scheduling 10/10/2021 Encounter Details Date Type Department Care Team (Late st Contact Info) Description 10/10/2021 Telephone [facility] Orthopaedic Surgery [address] [facility] 2[address] [place] [address] Tacho Sanchez MD [address] [facility] [address] [place] [address] surgery scheduling Social History Tobacco Use Types Packs/Day Years [...] on file 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 She verbalized understanding. * Telephone Encounter - Shivani King RN - 10/10/2021 4:[address] Willett discussed with the patient, one of his partners performing her surgery as he is out of the office next week. Patient is agreeable to Dr. Sanchez performing her surgery. Dr. Sanchez would like to perform surgery on 10/14/21. Called and discussed with the patient. She is agreeable to this plan. Patient aware that she needs to have a Covid Test performed on 10/11/21, [facility] [place] [place] Will call patient on 10/11/21 with surgery arrival time and preoperative instructions. documented in this encounter Plan of Treatment Scheduled Procedures Name Priority Associated Diagnoses Date/Ti me ESOPHAGOGASTRODUODENOSCOPY Nausea Colon cancer screening COLONOSCOPY Nausea Colon cancer screening documented as of this encounter Results * Influenza A/B, RSV, and COVID-19 PCR Nasopharyngeal (10/11/2021 11:34 AM CDT) Pathologist [facility] COVID-19 RNA Negative Negative [facility] Influenza A RNA Negative Negative [facility] Influenza B RNA Negative Negative [facility] RSV RNA Negative Negative [facility] Comment: Interpretive data: This test is performed using the [employer] Xpert Xpress CoV-2/Flu/RSV plus assay. This is [...] out infection. Interpretive Data last revised 2021. [facility] 10/11/2021 11 :34 AM CDT 10/11/2021 4:51 PM CDT Narrative KEKE ACOSTA - 10/11/2021 5:55 PM CDT Is the Patient experiencing symptoms consistent with COVID?->No Reason for testing?->Urgent surgical procedure Tacho Sanchez MD LAB MICROBIOLOGY - GENERAL OR DERABLES Final Result [facility] [address] Department [place] [address] documented in this encounter Visit Diagnoses Diagnosis Preoperative testing- Primary Unspecified pre-operative examination Preoperative testing Unspecified pre-operative examination documented in this encounter Care Teams Media Theorist And Author Of Relationship Specialty Start Date End Date Newton Mendiola MD [address] [address] PCP - General 06/09/16 Sly Cade MD [address] [address] Referring Physician Cardiology 12/07/18 documented as of this encounter
--- OUTSIDE RECORDS SUMMARY | 2024-03-18 05:00 | XMS_ITS | Encounter Summary ---
Author Organization [facility] Address [address] [place] [address] Care Team Providers Care Legal Writing Professor Name Role Phone Newton Mendiola MD Primary Care Provider [phone] Sly Cade MD Unavailable [phone] Reason for Visit * Reason Onset Date Comments ready to schedule 09/24/2021 Encounter Details Date Type Department Care Team (Late st Contact Info) Description 09/24/2021 Telephone [facility] Specialty Services [address] [place] [address] Miscellaneous, Not In File ready to schedule Social History Tobacco Use Types Packs/Day Years [...] on file 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 Gender Identity Not on file Sexual Orientation Not on file documented as of this encounter Plan of Treatment Scheduled Procedures Name Priority Associated Diagnoses Date/Ti me ESOPHAGOGASTRODUODENOSCOPY Nausea Colon cancer screening COLONOSCOPY Nausea Colon cancer screening documented as of this encounter Visit Diagnoses Not on filedocumented in this encounter Additional Health Concerns Infection Onset Date Last Indicated Resolved Time COVID: Suspected 07/21/2022 07/21/2022 07/21/2022 6:34 PM CDT documented as of this encounter Care Teams Legal Writing Professor Relationship Specialty Start Date End Date Newton Mendiola MD [address] [address] PCP - General 06/09/16 Sly Cade MD [address] [address] Referring Physician Cardiology 12/07/18 documented as of this encounter
--- OUTSIDE RECORDS SUMMARY | 2024-03-18 05:00 | XMS_ITS | Encounter Summary ---
Author Organization [facility] Address [address] [place] [address] Phone Care Team Providers Care Drafting Instructor Name Role Phone Newton Mendiola MD Primary Care Provider [phone] Sly Cade MD Unavailable [phone] Reason for Visit * Consultation (Routine) - Closed Specialty Diagnoses / Procedures Referred By Nino fletcher Referred To Contact Vascular Surgery Diagnoses Dissection of thoracic aorta (HCC) Newton Mendiola MD [address] [facility] [address] [place] [address] Phone: tel: fax: Eduardo Kwon MD [address] [place] [address] Phone: tel: fax: Referral ID Status Reason Start Date Expiration Date V isits Requested Visits Authorized [id number] Closed Specialty Services Required 04/25/2021 05/25/2022 12 12 Encounter Details Date Type Department Care Team (Late st Contact Info) Description 06/03/2021 2:15 PM CDT Office Visit [facility] Surgery [address] [facility] 2nd Floor [address] [place] [address] Eduardo Kwon MD [address] [place] [address] Aortic thrombus (CMS/HCC) (HCC) (Primary Dx) Social History Tobacco [...] and Family Not on file 2021 Attends [employer] Not on file 01/16 Active Member [...] on file 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 Gender Identity Not on file Sexual Orientation Not on file documented as of this encounter Last Filed Vital Signs Vital Sign Reading Time Taken Comments Blood Pressure 139/84 06/03/2021 2:04 PM CDT Pulse 118 06/03/2021 2:04 PM CDT Temperature 35.7 ??C (96.2 ??F) 06/03/2021 2:04 PM CD T Respiratory Rate - - Oxygen Saturation 97% 06/03/2021 2:04 PM CDT Inhaled Oxygen Concentration - - Weight 84.4 kg (186 lb) 06/03/2021 2:04 PM CDT Height 165.1 cm (5' 5 ) 06/03/2021 2:04 PM CDT Body Mass Index 30.95 06/03/2021 2:04 PM CDT documented in this encounter Progress Notes * Eduardo Kwon MD - 06/03/2021 2:15 PM CDT Patient: Katy Sauceda Date of : 1965 Date of Service: 06/03/2021 VASCULAR SURGERY FOLLOW UP VISIT HISTORY OF PRESENT ILLNESS: Patient is a 56 y.o. female who is being seen for embolic disease afterthoracic aortic thrombus. Doing well. No back or abdominal pain. Is taking eliquis. Previous interventions: none REVIEW OF SYSTEMS: Positive for none All other systems were reviewed and otherwise negative. The patient???s vascular health history was reviewed and signed by me dated 06/03/2021. The history form was scanned into the media section of [employer]. PHYSICAL EXAMINATION: VITAL SIGNS: Vitals BP 139/84 Pulse 118 Temp (!) 35.7 ??C (96.2 ??F) Ht 165.1 cm (5' 5 ) Wt 84.4 kg (186 lb) SpO2 97% BMI 30.95 kg/m?? HENT: Normocephalic and atraumatic. Extraocular movements are intact. Moist mucus membranes. EYES: Pupils are equal and reactive to light bilaterally. NECK: Supple with no carotid bruits. CHEST: Clear to auscultation bilaterally. HEART: Regular rate and rhythm. ABDOMEN: Soft, nontender, nondistended. VASCULAR: Easily palpable brachial/radial/femoral/pedal pulses MUSCULOSKELETAL: Warm, well perfused NEURO: Grossly intact motor and sensory exam. SKIN: No visible rashes. No wounds noted. VASCULAR LABS: I personally reviewed the none RADIOLOGY: I personally reviewed the CTA CAP 1. Resolution of prior descending thoracic aortic thrombosis with residual atherosclerosis similar to the prior study from 05/21/2020. 2. Interval evolution of the anterior splenic infarct. 3. Nonvisualization of the previously seen thrombus within the right internal iliac artery branches, which may represent resolution and a consequence of inadequate contrast opacification. ASSESSMENT/PLAN: The patient is a 56 y.o. 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 Thrombus has resolved completley. Can stop eliquis. No need for follow up. Eduardo Kwon MD documented in this encounter Plan of Treatment Scheduled Procedures Name Priority Associated Diagnoses Date/Ti me ESOPHAGOGASTRODUODENOSCOPY Nausea Colon cancer screening COLONOSCOPY Nausea Colon cancer screening documented as of this encounter Visit Diagnoses Diagnosis Aortic thrombus (CMS/HCC) (HCC)- Primary documented in this encounter Discontinued Medications Medication Sig Discontinue Reason Start Date End Da te acetaminophen 500 mg capsule Take 2 capsules (1,000 mg total) by mouth every 6 (six) hours as needed for pain Therapy completed 01/15/2021 06/03/2021 senna-docusate (PERICOLACE) 8.6-50 mgIndications:constip ation Take 1 tablet by mouth 2 (two) times a day as needed for constipation Therapy completed 02/20/2021 06/03/2021 documented as of this encounter Orders Outpatient Referral Count Last Ordered Date Fir st Ordered Date AMB REFERRAL TO VASCULAR SURGERY 1 06/04/19 22 documented in this encounter Care Teams Drafting Instructor Relationship Specialty Start Date End Date Newton Mendiola MD [address] [place] [address] PCP - General 06/09/16 Sly Cade MD [address] [place] [address] Referring Physician Cardiology 12/07/18 documented as of this encounter
--- OUTSIDE RECORDS SUMMARY | 2024-03-18 05:00 | XMS_ITS | Encounter Summary ---
Author Organization [facility] Address [facility] [place] [address] Care Team Providers Care Anesthesiologist/Physician Name Role Phone Newton Mendiola MD Primary Care Provider [phone] Sly Cade MD Unavailable [phone] Reason for Referral * Consultation (Routine) - Closed Specialty Diagnoses / Procedures Referred By Contac t Referred To Contact Orthopedic Surgery Diagnoses Laceration of right little finger without foreign body without damage to nail, initial encounter Newton Mendiola MD [address] [facility] [address] [place] [address] Phone: tel: fax: Betsy Prince MD [address] [facility] [address] [place] [address] Phone: tel: fax: Referral ID Status Reason Start Date Expiration Date V isits Requested Visits Authorized [id number] Closed Specialty Services Required 09/30/2021 10/30/2022 1 1 Question Answer Please select the performing region: [facility] (All Locations) [167] To provider: BETSY PRINCE [[id number]] # of visits: 1 Comments Patient sustained laceration 5th finger right hand with likely tendon injury. 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 One week ago the patient was cutting food and injured the 4th and 5th fingers of her right hand. The 4th finger healed very quickly. The 5th finger has healed however she has no sensation in the distal tuft of the 5th finger as well as inability to flex the PIP joint. There is no fever no chills no cellulitis. The assessment is finger laceration possible tendon injury plan is referral to Hand surgery documented in this encounter Miscellaneous Notes * Addendum Note - Yudelka Daugherty MA - 09/30/2021 7:45 AM CDTAddended by: YUDELKA DAUGHERTY on: 09/30/2021 09:12 AM Modules accepted: Orders documented in this encounter Plan of Treatment Scheduled Procedures Name Priority Associated Diagnoses Date/Ti me ESOPHAGOGASTRODUODENOSCOPY Nausea Colon cancer screening COLONOSCOPY Nausea Colon cancer screening Scheduled Referrals Name Type Priority Associated Diagnoses Order Schedule Ambulatory referral to Orthopedic Hand Outpatient Referral Routine Laceration of right little finger without foreign body without damage to nail, initial encounter Expected: 10/07/2021 (Approximate), Expires: 09/30/2022 documented as of this encounter Visit Diagnoses Diagnosis Laceration of right little finger without foreign body without damage to nail, initial encounter- Primary documented in this encounter Orders Immunization/Injection Count Last Ordered Date First Ordered Date TETANUS TOXOID VACCINE ADSORBED 1 2 documented in this encounter Care Teams Anesthesiologist/Physician Relationship Specialty Start Date End Date Newton Mendiola MD [address] [address] PCP - General 06/09/16 Sly Cade MD [address] [address] Referring Physician Cardiology 12/07/18 documented as of this encounter
--- OUTSIDE RECORDS SUMMARY | 2024-03-18 05:00 | XMS_ITS | Encounter Summary ---
Author Organization [facility] Address [address] [place] [address] Care Team Providers Care Scrap Burner Name Role Phone Newton Mendiola MD Primary Care Provider [phone] Sly Cade MD Unavailable [phone] Encounter Details Date Type Department Care Team (Late st Contact Info) Description 06/12/2021 [facility] [address] [facility] [address] [place] [address] Newton Mendiola MD [address] [facility] [address] [place] [address] Social History Tobacco Use Types [...] on file 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 Gender Identity Not on file Sexual Orientation Not on file documented as of this encounter Miscellaneous Notes * Telephone Encounter - Yudelka Daugherty MA - 06/12/2021 3:47 PM CDT Pt aware/mk * Telephone Encounter - Yudelka Daugherty MA - 06/12/2021 3:46 PM CDT ----- Message from Newton Mendiola MD sent at 06/03/2021 2:23 PM CDT ----- Follow up ultrasound in 1 year documented in this encounter Plan of Treatment Scheduled Procedures Name Priority Associated Diagnoses Date/Ti me ESOPHAGOGASTRODUODENOSCOPY Nausea Colon cancer screening COLONOSCOPY Nausea Colon cancer screening documented as of this encounter Visit Diagnoses Not on filedocumented in this encounter Care Teams Scrap Burner Relationship Specialty Start Date End Date Newton Mendiola MD [address] [address] PCP - General 06/09/16 Sly Cade MD [address] [address] Referring Physician Cardiology 12/07/18 documented as of this encounter
--- OUTSIDE RECORDS SUMMARY | 2024-03-18 05:00 | XMS_ITS | Encounter Summary ---
Author Organization [facility] Address [address] [place] [address] Care Team Providers Care Rubber Washer Name Role Phone Newton Mendiola MD Primary Care Provider [phone] Sly Cade MD Unavailable [phone] Reason for Referral * Diagnostic Imaging (Routine) - Closed Specialty Diagnoses / Procedures Referred By Contac t Referred To Contact Diagnoses Multiple thyroid nodules Procedures US Thyroid Newton Mendiola MD [address] [facility] [address] [address] Phone: tel: fax: [address] [address] Referral ID Status Reason Start Date Expiration Date Visits Re quested Visits Authorized [id number] Closed 05/22/2021 06/21/2022 1 1 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 Gender Identity Not on file Sexual Orientation Not on file documented as of this encounter Plan of Treatment Scheduled Procedures Name Priority Associated Diagnoses Date/Ti me ESOPHAGOGASTRODUODENOSCOPY Nausea Colon cancer screening COLONOSCOPY Nausea Colon cancer screening documented as of this encounter Results * US Thyroid (06/03/2021 [...] this encounter Visit Diagnoses Diagnosis Multiple thyroid nodules- Primary Nontoxic multinodular goiter Multiple thyroid nodules Nontoxic multinodular goiter documented in this encounter Additional Health Concerns Infection Onset Date Last Indicated Resolved Time COVID: Recovered Comment:Added based on recent COVID infection. 01/29/2021 04/25/2021 05/29/2021 3:05 AM C DT documented as of this encounter Care Teams Rubber Washer Relationship Specialty Start Date End Date Newton Mendiola MD [address] [place] [address] PCP - General 06/09/16 Sly Cade MD [address] [facility] [address] [place] [address] Referring Physician Cardiology 12/07/18 documented as of this encounter
--- OUTSIDE RECORDS SUMMARY | 2024-03-18 05:01 | XMS_ITS | Encounter Summary ---
Author Organization [facility] Healthcare Address [address] [place] [address] Care Team Providers Care Law Office Assistant Name Role Phone Newton Mendiola MD Primary Care Provider [phone] Sly Cade MD Unavailable [phone] Encounter Details Date Type Department Care Team (Late st Contact Info) Description 12/11/2020 3:50 PM CDT Lab [facility] [address] [place] [address] Sheila So, DO [address] [place] [address] DR CONNOLLY B [facility] [address] [place] [address] Allergic rhinitis, unspecified seasonality, unspecified trigger Discharge Disposition: Discharge to home or self [...] on file 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 Gender Identity Not on file Sexual Orientation Not on file documented as of this encounter Discharge Disposition Disposition Code Departure Means Destination Discharge to home or self care documented in this encounter Plan of Treatment Scheduled Procedures Name Priority Associated Diagnoses Date/Ti me ESOPHAGOGASTRODUODENOSCOPY Nausea Colon cancer screening COLONOSCOPY Nausea Colon cancer screening documented as of this encounter Procedures Procedure Name Priority Date/Time Associated Diagnosis Comments ALLERGEN EXPANDED RESPIRATORY ALLERGY PROFILE Routine 12/11/2020 3:54 PM CDT Allergic rhinitis, unspecified seasonality, unspecified trigger documented in this encounter Results * (ABNORMAL) Expanded respiratory allergy profile (12/11/2020 3:54 PM CDT) Alternaria tenius IgE <0.10 0.00 - 0.34 kUnits/L [facility] ([facility]) Comment:Testing performed by : [facility], [place]., [address] Tyshawn white IgE <0.10 0.00 - 0.34 kUnits/L [facility] ([place]) Comment:Testing performed by : [facility], [place]., [address] Aspergillus fumigatus IgE <0.10 0.00 - 0.34 kUnits/L [facility] ([place]) Comment:Testing performed by : [facility], [facility], [address] Bermuda grass IgE <0.10 0.00 - 0.34 kUnits/L [facility] ([place]) Comment:Testing performed by : [facility], [place]., [address] Cat dander IgE <0.10 0.00 - 0.34 kUnits/L [facility] ([place]) Comment:Testing performed by : [place]., [address] Cladosporium herbarum IgE <0.10 0.00 - 0.34 kUnits/L [facility] ([place]) Comment:Testing performed by : [place]., [address] Cockroach IgE <0.10 0.00 - 0.34 kUnits/L [facility] ([place]) Comment:Testing performed by : [place]., [address] [place] IgE <0.10 0.00 - 0.34 kUnits/L [facility] ([place]) Comment:Testing performed by : [facility], [address] Dermatophyton farinae IgE <0.10 0.00 - 0.34 kUnits/L [facility] ([place]) Comment:Testing performed by : [facility], [place]., [address] Dermatophyton pteronyssinus IgE <0.10 0.00 - 0.34 kUnits/L [facility] ([place]) Comment:Testing performed by : [facility], [place]., [address] Dog dander IgE <0.10 0.00 - 0.34 kUnits/L [facility] ([place] Comment:Testing performed by : [facility], [place]., [address] Elm IgE <0.10 0.00 - 0.34 kUnits/L [facility] Comment:Testing performed by : [facility], [place]., [address] Maple/box elder IgE <0.10 0.00 - 0.34 kUnits/L [facility]) Comment:Testing performed by : [facility], [place]., [address] Mountain juniper IgE <0.10 0.00 - 0.34 kUnits/L [facility] ([place] Comment:Testing performed by : [place]., [address] Papaaloa IgE <0.10 0.00 - 0.34 kUnits/L [facility] Comment:Testing performed by : [facility], [place]., [address] W[place]ahachie IgE <0.10 0.00 - 0.34 kUnits/L [facility] Comment:Testing performed by : [facility], [place]., [address] Pecan (tree) IgE <0.10 0.00 - 0.34 kUnits/L [facility] Comment:Testing performed by : [facility], [place]., [address] Penicillium chrysogenum IgE <0.10 0.00 - 0.34 kUnits/L [facility] ([place] Comment:Testing performed by : [facility], [place]., [address] Ragweed common IgE <0.10 0.00 - 0.34 kUnits/L [facility] Comment:Testing performed by : [facility], [place]., [address] Marshelder rough IgE <0.10 0.00 - 0.34 kUnits/L [facility] Comment:Testing performed by : [facility], [place]., [address] Pigweed rough IgE <0.10 0.00 - 0.34 kUnits/L [facility] Comment:Testing performed by : [facility], [place]., [address] Thistle chadian IgE <0.10 0.00 - 0.34 kUnits/L [facility] ([place] Comment:Testing performed by : [place]., [address] [place] IgE <0.10 0.00 - 0.34 kUnits/L [facility] ([place] Comment:Testing performed by : [place]., [address] Rio grass IgE <0.10 0.00 - 0.34 kUnits/L [facility] Comment:Testing performed by : [place]., [address] [place] (tree) IgE <0.10 0.00 - 0.34 kUnits/L [facility] Comment:Testing performed by : [facility], [place]., [address] IgE 0.1(L) 1.0 - 100.0 IUnits/mL [facility] Comment: Repeated and verified. Testing performed by: [facility], [address] Blood 12/11/2020 3:54 PM CDT 12/12/2020 10:02 AM CDT us Sheila Barretotanneralexander DO LAB BLOOD ORDERABLES Final R esult [facility] ([place]) 1 [facility] Department of [facility] [place], [place] [id number] documented in this encounter Visit Diagnoses Diagnosis Allergic rhinitis, unspecified seasonality, unspecified trigger documented in this encounter Care Teams Law Office Assistant Relationship Specialty Start Date End Date Newton Mendiola MD [address] [address] PCP - General 06/09/16 Sly Cade MD [address] [facility] [address] [place] [address] Referring Physician Cardiology 12/07/18 documented as of this encounter
--- OUTSIDE RECORDS SUMMARY | 2024-03-18 05:01 | XMS_ITS | Encounter Summary ---
Author Organization [facility] Healthcare Address [address] [place] [address] Care Team Providers Care Sliver Former Name Role Phone Newton Mendiola MD Primary Care Provider [phone] Sly Cade MD Unavailable [phone] Encounter Details Date Type Department Care Team (Latest Contact Info) Description 01/10/2021 9:22 PM CDT - 01/10/2021 10:31 PM CDT Hospital Encounter [facility] Discharge Disposition: Discharge to home or self [...] on file Legal Sex Female 7:55 AM WASTEWATER SUPERVISOR Gender Identity Not on file Sexual Orientation Not on file documented as of this encounter Medications at Time of Discharge aspirin 81 mg tablet Take 1 tablet (81 mg total) by mouth daily acetaminophen 500 mg capsule Take 2 capsules (1,000 mg total) by mouth every 6 (six) hours as needed for pain 30 tablet 01/15/2021 2 apixaban (ELIQUIS) 5 mg tabletIndications :deep venous thrombosis Take 2 tablets (10 mg total) by mouth 2 (two) times a day for 14 doses 28 tablet 01/15/2021 1 apixaban (ELIQUIS) 5 mg tabletIndications :deep venous thrombosis Take 1 tablet (5 mg total) by mouth 2 (two) times a day 60 tablet 01/22/2021 1 atorvastatin (LIPITOR) 10 mg tablet Take 1 tablet (10 mg total) by mouth nightly 90 tablet 11/22/2020 1 atorvastatin (LIPITOR) 40 mg tablet Take 1 tablet (40 mg total) by mouth nightly 30 tablet 01/15/2021 1 buPROPion XL (WELLBUTRIN XL) 300 mg [...] daily 30 tablet 11 12/17/2020 2 fluticasone (CHILDREN'S FLONASE ALLERGY RLF) 50 mcg/actuation nasal spray Administer 1 spray into each nostril daily as needed 07/09/2016 1 fluticasone propionate (FLONASE) 50 mcg/actuation nasal sprayIndications: [...] total) by mouth daily 90 tablet 3 02/23/2020 2 metoprolol XL (TOPROL-XL) 100 mg 24 hr tablet Take 1 tablet (100 mg total) by mouth daily 90 tablet 3 05/28/2020 2 ondansetron (Zofran) 4 mg tabletIndications :Nausea Take 1 tablet (4 mg total) by mouth every 8 (eight) hours as needed for nausea or vomiting 20 tablet 10/08/[address] (PROTONIX) 40 mg EC tablet TAKE 1 TABLET BY MOUTH EVERY DAY 90 tablet 1 12/12/2020 2 polyethylene glycol (MIRALAX) 17 gram packetIndications :constipation Take 1 packet (17 g total) by mouth daily 5 packet 01/15/2021 1 senna-docusate (PERICOLACE) 8.6-50 mgIndications:con stipation Take 1 tablet by mouth 2 (two) times a day as needed for constipation 30 tablet 01/15/2021 1 spironolactone (ALDACTONE) 25 mg tablet Take 1 [...] Infection Onset Date Last Indicated Resolved Time COVID19 12/29/2020 12/29/2020 01/29/2021 3:05 AM WASTEWATER SUPERVISOR documented as of this encounter Care Teams Sliver Former Relationship Specialty Start Date End Date Newton Mendiola MD [address] [address] PCP - General 06/09/16 Sly Cade MD [address] [facility] [address] [place] [address] Referring Physician Cardiology 12/07/18 documented as of this encounter
--- OUTSIDE RECORDS SUMMARY | 2024-03-18 05:01 | XMS_ITS | Encounter Summary ---
Author Organization [facility] Address [address] [place] [address] Care Team Providers Care Pull Worker Name Role Phone Newton Mendiola MD Primary Care Provider [phone] Sly Cade MD Unavailable [phone] Reason for Visit * Reason Onset Date Comments Medication Request 01/15/2021 Encounter Details Date Type Department Care Team (Late st Contact Info) Description 01/15/2021 [facility] [address] [facility] [address] [place] [address] Newton Mendiola MD [address] [facility] [address] [place] [address] Medication Request Social History Tobacco Use Types Packs/Day Years [...] and Family Not on file 2021 Attends [employer] Services Not on file 01/16 Active [...] on file Legal Sex Female 7:55 AM ORDER ENTRY REPRESENTATIVE Gender Identity Not on file Sexual Orientation Not on file documented as of this encounter Ordered Prescriptions Prescription Sig Dispense Quantity Refills Last Filled Start Date End Date ondansetron (ZOFRAN) 4 mg tablet Take 1 tablet (4 mg total) by mouth every 8 (eight) hours as needed for nausea or vomiting 20 tablet 1 01/15/2021 2 documented in this encounter Miscellaneous Notes * Telephone Encounter - Newton Mendiola MD - 01/15/2021 2:32 PM CDT done * Telephone Encounter - Kat Aragon MA - 01/15/2021 1:27 PM CDT Patient is seeing you on for hospital f/u and she is asking for Zofran Nauseated from all the medication she is taking She was getting it in the hospital and is needing some now for home Allergies: Codeine, Hydrocodone and PCN Phar: [facility] system documented in this encounter Plan of Treatment Scheduled Procedures Name Priority Associated Diagnoses Date/Ti me ESOPHAGOGASTRODUODENOSCOPY Nausea Colon cancer screening COLONOSCOPY Nausea Colon cancer screening documented as of this encounter Visit Diagnoses Not on filedocumented in this encounter Additional Health Concerns Infection Onset Date Last Indicated Resolved Time COVID19 12/29/2020 12/29/2020 01/29/2021 3:05 AM ORDER ENTRY REPRESENTATIVE documented as of this encounter Care Teams Pull Worker Relationship Specialty Start Date End Date Newton Mendiola MD [address] [employer] [address] [address] [address] PCP - General 06/09/16 Sly Cade MD [address] [address] Referring Physician Cardiology 12/07/18 documented as of this encounter
--- OUTSIDE RECORDS SUMMARY | 2024-03-18 05:01 | XMS_ITS | Encounter Summary ---
Author Organization [facility] Address [address] [place] [address] Phone Care Team Providers Care Mechanical Artist Name Role Phone Newton Mendiola MD Primary Care Provider [phone] Sly Cade MD Unavailable Tuyet Weir [facility] Unavailable [phone] Reason for Visit * Consultation (Routine) - Closed Specialty Diagnoses / Procedures Referred By Contac t Referred To Contact Vascular Surgery Diagnoses Dissection of thoracic aorta (HCC) Newton Mendiola MD [address] [address] Phone: tel: fax: Eduardo Kwon MD [address] [place] [address] Phone: tel: fax: Referral ID Status Reason Start Date Expiration Date V isits Requested Visits Authorized [id number] Closed Specialty Services Required 01/17/2021 02/16/2022 1 1 Encounter Details Date Type Department Care Team (Late st Contact Info) Description 01/25/2021 10:45 AM LOAN FUNDER Office Visit [facility] Surgery [address] [facility] 2nd Floor [address] [place] [address] Eduardo Kwon MD [address] [place] [address] Aortic thrombus (CMS/HCC) (HCC) Social History Tobacco [...] and Family Not on file 2021 Attends [employer]ism Services Not on file 01/16 Active Member [...] place to sleep or slept in a fpc (including now)? No 2021 Comments No Sex and Gender Information Value Date Recorded Sex Assigned at Not on file Legal Sex Female 7:55 AM LOAN FUNDER Gender Identity Not on file Sexual Orientation Not on file documented as of this encounter Last Filed Vital Signs Vital Sign Reading Time Taken Comments Blood Pressure 125/77 01/25/2021 10:44 AM LOAN FUNDER Pulse 92 01/25/2021 10:44 AM LOAN FUNDER Temperature 36.5 ??C (97.7 ??F) 01/25/2021 10:[address] Respiratory Rate - - Oxygen Saturation - - Inhaled Oxygen Concentration - - Weight 83 kg (182 lb 14.4 oz) 01/25/2021 10:44 A M LOAN FUNDER Height 165.1 cm (5' 5 ) 01/25/2021 10:44 AM LOAN FUNDER Body Mass Index 30.44 01/25/2021 10:44 AM LOAN FUNDER documented in this encounter Progress Notes * Eduardo Kwon MD - 01/25/2021 10:45 AM CST Patient: Katy Sauceda Date of : 1965 Date of Service: 01/25/2021 VASCULAR SURGERY FOLLOW UP VISIT HISTORY OF PRESENT ILLNESS: Patient is a 56 y.o. 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 She had evidence of emoblism to spleen, hypo, and profunda. Shewas discharged on Eliquis. She returns today without any further LUQ pain. She is eating well. Her PCP told her she had an aortic dissection and wanted her on bedrest until seeing me. Previous interventions: REVIEW OF SYSTEMS: Positive for none. All other systems were reviewed and otherwise negative. The patient???s vascular health history was reviewed and signed by me dated 01/25/2021. The historyform was scanned into the media section of [employer]. PHYSICAL EXAMINATION: VITAL SIGNS: Vitals BP 125/77 Pulse 92 Temp 36.5 ??C (97.7 ??F) Ht 165.1 cm (5' 5 ) Wt 83 kg (182 lb 14.4 oz) BMI 30.44 kg/m?? HENT: Normocephalic and atraumatic. Extraocular movements are intact. Moist mucus membranes. EYES: Pupils are equal and reactive to light bilaterally. NECK: Supple with no carotid bruits. CHEST: Clear to auscultation bilaterally. HEART: Regular rate and rhythm. ABDOMEN: Soft, nontender, nondistended. VASCULAR: Palpable brachial/radial/pt bilateral MUSCULOSKELETAL: Warm, well perfused NEURO: Grossly intact motor and sensory exam. SKIN: No visible rashes. No wounds noted. VASCULAR LABS: I personally reviewed the none RADIOLOGY: I personally reviewed the CTA pending ASSESSMENT/PLAN: The patient is a 56 y.o. female s/p admission for aortic thrombus 2/2 COVID. She did not have an aortic dissection that was suggested on her initial scan, I think it was streak artifact as her followup CT just showed some laminar thrombus. We will get a repeat scan today to document clot resolution. Will continue Eliquis for three months at which point we will see her in followup. She can do activity as tolerated. Eduardo Kwon MD FUNDER documented in this encounter Plan of Treatment Scheduled Procedures Name Priority Associated Diagnoses Date/Ti me ESOPHAGOGASTRODUODENOSCOPY Nausea Colon cancer screening COLONOSCOPY Nausea Colon cancer screening documented as of this encounter Visit Diagnoses Diagnosis Aortic thrombus (CMS/HCC) (HCC) documented in this encounter Orders Outpatient Referral Count Last Ordered Date Fir st Ordered Date AMB REFERRAL TO VASCULAR SURGERY 1 01/26/20 21 documented in this encounter Additional Health Concerns Infection Onset Date Last Indicated Resolved Time COVID19 12/29/2020 12/29/2020 01/29/2021 3:05 AM LOAN FUNDER documented as of this encounter Care Teams Mechanical Artist Relationship Specialty Start Date End Date Newton Mendiola MD [address] [place] [address] PCP - General 06/09/16 Sly Cade MD [address] [facility] [address] [place] [address] Referring Physician Cardiology 12/07/18 Tuyet Weir, JOSE [address] [facility] ([facility] Mailstop [phone] [place] [address] SHOP Outpatient Legal Administrative Secretary 01/16/21 02/11/21 documented as of this encounter
--- OUTSIDE RECORDS SUMMARY | 2024-03-18 05:01 | XMS_ITS | Encounter Summary ---
Author Organization [facility] Address [address] [facility] [address] [place] [address] Care Team Providers Care Jacquard Twine Polisher Operator Name Role Phone Newton Mendiola MD Primary Care Provider [phone] Sly Cade MD Unavailable [phone] Encounter Details Date Type Department Care Team (Late st Contact Info) Description 12/13/2020 Telephone [facility] E[facility] Specialists - [address] [place] [address] Gisell Chen MA Social History Tobacco Use Types Packs/Day Years Used Date Smoking Tobacco: Former Cigarettes 0.5 10 1 990 - 2000 Smokeless Tobacco: Never Alcohol Use Standard Drinks/Week Comments No 0 (1 standard drink = 0.6 oz pur e alcohol) Comments No Sex and Gender Information Value Date Recorded Sex Assigned at Not on file Legal Sex Female 7:55 AM TACK CLEANER Gender Identity Not on file Sexual Orientation Not on file documented as of this encounter Miscellaneous Notes * Telephone Encounter - Gisell Chen MA - 12/13/2020 2:48 PM CDT Notified pt of results, she states her understanding * Telephone Encounter - Gisell Chen MA - 12/13/2020 2:47 PM CDT ----- Message from Sheila So DO sent at 12/13/2020 2:37 PM CDT ----- Negative documented in this encounter Plan of Treatment Scheduled Procedures Name Priority Associated Diagnoses Date/Ti me ESOPHAGOGASTRODUODENOSCOPY Nausea Colon cancer screening COLONOSCOPY Nausea Colon cancer screening documented as of this encounter Visit Diagnoses Not on filedocumented in this encounter Care Teams Jacquard Twine Polisher Operator Relationship Specialty Start Date End Date Newton Mendiola MD [address] [employer] [address] [address] PCP - General 06/09/16 Sly Cade MD [address] [employer] [address] [address] Referring Physician Cardiology 12/07/18 documented as of this encounter
--- OUTSIDE RECORDS SUMMARY | 2024-03-18 05:01 | XMS_ITS | Encounter Summary ---
Author Organization [facility] Healthcare Address [address] [place] [address] Care Team Providers Care Sausage Cooker Name Role Phone Newton Mendiola MD Primary Care Provider Sly Cade MD Unavailable [phone] Tuyet Weir [facility] Unavailable [phone] Reason for Visit * Reason Comments Unsuccessful Phone Call 1 Encounter Details Date Type Department Care Team (Late st Contact Info) Description 01/30/2021 SHOP/CHAP Subsequent Outreach [facility] OP CASE MANAGEMENT [address] [place] [id number] Tuyet Weir, [facility] [address] [facility] Mailstop [phone] [place] [address] Social History Tobacco Use Types Packs/Day Years [...] on file Legal Sex Female 7:55 AM DRYWALLER Gender Identity Not on file Sexual Orientation Not on file documented as of this encounter Plan of Treatment Scheduled Procedures Name Priority Associated Diagnoses Date/Ti me ESOPHAGOGASTRODUODENOSCOPY Nausea Colon cancer screening COLONOSCOPY Nausea Colon cancer screening documented as of this encounter Visit Diagnoses Not on filedocumented in this encounter Care Teams Sausage Cooker Relationship Specialty Start Date End Date Newton Mendiola MD [address] [employer] [address] [address] PCP - General 06/09/16 Sly Cade MD [address] [employer] [address] [address] Referring Physician Cardiology 12/07/18 Tuyet Weir, EXTRUDING PRESS ADJUSTER [address] [facility] ([facility] Mailstop [phone] [place] [address] SHOP Outpatient Health Policy Manager 01/16/21 02/11/21 documented as of this encounter
--- OUTSIDE RECORDS SUMMARY | 2024-03-18 05:01 | XMS_ITS | Encounter Summary ---
Author Organization [facility] Address [address] [place] [address] Phone Care Team Providers Care Typing Element Machine Operator Name Role Phone Newton Mendiola MD Primary Care Provider [phone] Sly Cade MD Unavailable [phone] Tuyet Weir [facility] Unavailable [phone] Encounter Details Date Type Department Care Team (Late st Contact Info) Description 01/17/2021 Telephone [facility] Cardiology [address] [facility] [address] [place] [address] Matt Remy MD [address] [place] [address] Social History Tobacco Use Types Packs/Day Years [...] and Family Not on file 2021 Attends Gnosticist Services Not on file 01/16 Active Member [...] file Legal Sex Female 7:55 AM SENIOR TEST ANALYST Gender Identity Not on file Sexual Orientation Not on file documented as of this encounter Miscellaneous Notes * Telephone Encounter - Odalis Monroe RN - 01/17/2021 3:50 PM CDT Vlad Jacobo Please see my note to Dr Remy below. I didn't know if he wanted to see this patient before his next appt (Jul, 2021). ?? She is seeing vascular surgery, but she has been having some issues with volume overload as well. Just let me know what ??you think Thanks, hope all is well Newton Mendiola Scheduled pt to see Arminda on 02/06 for eval and we can move up May apt if needed at that time. Dr Mendiola aware and agrees with plan. Pt aware. documented in this encounter Plan of Treatment Scheduled Procedures Name Priority Associated Diagnoses Date/Ti me ESOPHAGOGASTRODUODENOSCOPY Nausea Colon cancer screening COLONOSCOPY Nausea Colon cancer screening documented as of this encounter Visit Diagnoses Not on filedocumented in this encounter Additional Health Concerns Infection Onset Date Last Indicated Resolved Time COVID19 12/29/2020 12/29/2020 01/29/2021 3:05 AM SENIOR TEST ANALYST documented as of this encounter Care Teams Typing Element Machine Operator Relationship Specialty Start Date End Date Newton Mendiola MD [address] [address] PCP - General 06/09/16 Sly Cade MD [address] [address] Referring Physician Cardiology 12/07/18 Tuyet Weir, ADJUNCT FACULTY [address] [facility] [place] Mailstop [phone] [place] [address] SHOP Outpatient Revival Clerk 01/16/21 02/11/21 documented as of this encounter
--- OUTSIDE RECORDS SUMMARY | 2024-03-18 05:01 | XMS_ITS | Encounter Summary ---
Author Organization [facility] Address [address] [address] Care Team Providers Care Commercial Production Editor Name Role Phone Newton Mendiola MD Primary Care Provider [phone] Sly Cade MD Unavailable [phone] Reason for Visit * Reason Comments Covid Loss of smell and ta david is off, fatigue, sore throat, sinus drainage, dry cough, body aches, fever, + exp, not vaccinated Encounter Details Date Type Department Care Team (Late st Contact Info) Description 12/29/2020 10:45 AM CDT Office Visit [facility] [address] [place] [address] Birdie Ramey, RANCH HELPER [address] [place] [address] COVID-19 (Primary Dx) Social History Tobacco Use Types Packs/Day Years Used Date Smoking Tobacco: Former Cigarettes 0.5 10 1 990 - 1999 Smokeless Tobacco: Never Alcohol Use Standard Drinks/Week Comments No 0 (1 standard drink = 0.6 oz pur e alcohol) Comments No Sex and Gender Information Value Date Recorded Sex Assigned at Not on file 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 Gender Identity Not on file Sexual Orientation Not on file documented as of this encounter Last Filed Vital Signs Vital Sign Reading Time Taken Comments Blood Pressure 132/84 12/29/2020 10:59 AM CDT Pulse 113 12/29/2020 10:59 AM CDT Temperature 36.3 ??C (97.4 ??F) 12/29/2020 10:59 AM C DT Respiratory Rate 18 12/29/2020 10:59 AM CDT Oxygen Saturation 98% 12/29/2020 10:59 AM CDT Inhaled Oxygen Concentration - - Weight 83.5 kg (184 lb) 12/29/2020 10:59 AM CDT Height 162.6 cm (5' 4 ) 12/29/2020 10:59 AM CDT Body Mass Index 31.58 12/29/2020 10:59 AM CDT documented in this encounter Patient Instructions * Patient Instructions* Birdie Ramey NP - 12/29/2020 10:45 AM CDT ?? Please start an antihistamine such as Claritin, Zyrtec, Alyse ?? Monitor for significant shortness of breath, chest discomfort: The symptoms warrant ED presentation immediately ?? Continue Tylenol for headache and vkfm-hlo-[id number] management of flu like symptoms ?? Be mindful of quarantine for 10 days from the onset of symptoms including avoiding public placesi.e. grocery stores, birthday parties, social functions ?? Continue to wear mask as directed by CDC Instructions following testing for COVID-19: Today you received test for SARS-COV2 (COVID-19). Please follow the instructions below regarding quarantine and return to work/daycare/school based on your results, symptoms and exposures. If you are NEGATIVE, AND: 1. NO symptoms and NO known/possible exposure: NO need to isolate. 2. NO symptoms and YES known/possible exposure: quarantine for 14 days after last potential exposure. A negative test of a specific day cannot be used to release from quarantine since the patience could become positive during the 14- day period. 3. YES symptoms and NO known/possible exposure: quarantine until without fever for 24 hours AND symptoms improve. 4. YES symptoms and YES known/possible exposure: you must quarantine for 14 days from last known exposure date. A negative test of a specific day cannot be used to release from quarantine since the patient could become positive during the 14 day period. 5. YES symptoms and YES known/possible exposure and HAVE BEEN VACCINATED: you ONLY QUARANTINE untilyou are fever free AND symptoms improve. 6. NO symptoms and YES known/possible exposure and HAVE BEEN VACCINATED: NO RECOMMENDATION FOR QUARANTINE. If you are POSITIVE and NOT VACCINATED: You should isolate for 10 days from onset of symptoms, NOT FROM DATE OF POSITIVE TEST. You must be without fever for 24 hours AND symptoms improving AND released by the local health department. All household contacts must quarantine for 14 days from last potential exposure to positive patient. If household contacts cannot fully isolate, then quarantine for household contacts extends for 14 days beyond the 10 days from start of symptoms (may be up to 24 days of quarantine). ??? COVID-19 is a highly communicable disease (very contagious) that is spread through droplets viacough, sneeze, speech at close contact. ??? You will need to continue to wear a mask per CDC guidelines. ??? If at any time you feel significantly short of breath or chest pain/tightness, or change in mental status please go to the ER. If you are POSITIVE and VACCINATED: ??? Although the risk that fully vaccinated people could become infected with COVID-19 is low, any fully vaccinated person who experiences symptoms consistent with COVID-19 should isolate themselves from others, be clinically evaluated for COVID-19, and tested for SARS-CoV-2 if indicated. ??? The fully vaccinated people that test positive for COVID should quarantine for 10-days from theonset of symptoms. ??? The symptomatic fully vaccinated person should inform their healthcare provider of their vaccination status at the time of presentation to care. COVID-19 vaccines are effective at protecting you from getting sick. Based on what we know about COVID-19 vaccines, people who have been fully vaccinated can do things that they had stopped doing because of the pandemic. These recommendations can help you make decisions about daily activities after you are fully vaccinated. They are not intended for healthcare settings. Have You Been Fully Vaccinated? In general, people are considered fully vaccinated: ? 2 weeks after their second dose in a 2-dose series, such as the Pfizer or Moderna vaccines, or ? ? 2 weeks after a single-dose vaccine, such as Bony & Bony? s Emeka vaccine ??? If you don???t meet these requirements, regardless of your age, you are NOT fully vaccinated. Keep taking all precautions until you are fully vaccinated. If you have a condition or are taking medications that weaken your immune system, you may NOT be fully protected even if you are fully vaccinated. Talk to your healthcare provider. Even after vaccination, you may need to continue taking all precautions. What You Can Do? If you???ve been fully vaccinated: ??? You can resume activities that you did prior to the pandemic. ??? You can resume activities without wearing a mask or staying 6 feet apart, except where requiredby federal, state, local, [place], or territorial laws, rules, and regulations, including local business and workplace guidance. ??? If you travel in the [place], you do not need to get tested before or after travel or self-quarantine after travel. ??? You need to pay close attention to the situation at your international destination before traveling outside the [place]. ??? You do NOT need to get tested before leaving the [facility] unless your destination requiresit. ??? You still need to show a negative test result or documentation of recovery from COVID-19 beforeboarding an international flight to the [facility]. ??? You should still get tested 3-5 days after international travel. ??? You do NOT need to self-quarantine after arriving in the [place]. ??? If you???ve been around someone who has COVID-19, you do not need to stay away from others or get tested unless you have symptoms. ??? However, if you live or work in a correctional or skilled nursing facility or a homeless halfway and are around someone who has COVID-19, you should still get tested, even if you don???t have symptoms. What You Should Keep Doing? For now, if you???ve been fully vaccinated: ??? You will still need to follow guidance at your workplace and local businesses. ??? If you travel, you should still take steps to protect yourself and others. ??? Masks are required on planes, buses, trains, and other forms of public transportation travelinginto, within, or out of the [place] and in [place] transportation hubs such as airports and stations. Travelers are not required to wear a mask in outdoor areas of a conveyance (like on a ferry orthe top deck of a bus). CDC recommends that travelers who are not fully vaccinated continue to weara mask and maintain physical distance when traveling. ??? Fully vaccinated international travelers arriving in the [place] are still required to get tested 3 days before travel by air into the [place] (or show documentation of recovery from COVID-19 in the past 3 months) and should still get tested 3-5 days after their trip. ??? You should still watch out for symptoms of COVID-19, especially if you???ve been around someonewho is sick. If you have symptoms of COVID-19, you should get tested and stay home and away from others. ??? People who have a condition or are taking medications that weaken the immune system, should talk to their healthcare provider to discuss their activities. They may need to keep taking all precautions to prevent COVID-19. What We Know? COVID-19 vaccines are effective at preventing COVID-19 disease, especially severe illness and . ??? COVID-19 vaccines reduce the risk of people spreading COVID-19. What We???re Still Learning ??? How effective the vaccines are against variants of the virus that causes COVID-19. Early data show the vaccines may work against some variants but could be less effective against others. ??? How well the vaccines protect people with weakened immune systems, including people who take immunosuppressive medications. ??? How long COVID-19 vaccines can protect people. ??? As we know more, CDC will continue to update our recommendations for both vaccinated and unvaccinated people. All information from CDC web site documented in this encounter Ordered Prescriptions Prescription Sig Dispense Quantity Refills Last Filled Start Date End Date predniSONE (DELTASONE) 20 mg tabletIndications: COVID-19 Take 2 tablets (40 mg) by mouth daily for 5 days 10 tablet 12/29/2020 documented in this encounter Progress Notes * Birdie Ramey NP - 12/29/2020 10:45 AM CDT Images from the original note were not included. Subjective/Objective Patient: Katy Sauceda is a 55 y.o. female followed by Newton Mendiola MD Chief Complaint Patient presents with ??? Covid Loss of smell and taste is off, fatigue, sore throat, sinus drainage, dry cough, body aches, fever,+ exp, not vaccinated Patient presents to clinic with son and daughter with complaints of loss of smell, loss of taste, fatigue, sore throat, sinus drainage and dry cough x4 days. Patient states she had positive exposure 6 days ago and is not vaccinated. History significant to COVID includes: smoker, obesity, HTN . Denies having previous history of COVID diagnosis. Attempted nothing OTC prior to arrival for symptom alleviation. Denies the following: GI symptoms: nausea, vomiting, diarrhea, abdominal pain Respiratory symptoms: shortness of breath, chest discomfort Generalized symptoms of infection: fever, generalized malaise, headache, ear ache Review of Systems Constitutional: Positive for chills and fatigue. Negative for fever. HENT: Positive for congestion, rhinorrhea and sore throat. Negative for ear pain and sneezing. Eyes: Negative. Respiratory: Positive for cough. Negative for shortness of breath and wheezing. Cardiovascular: Negative for chest pain and palpitations. Gastrointestinal: Negative for abdominal pain, diarrhea, nausea and vomiting. Endocrine: Negative. Genitourinary: Negative. Musculoskeletal: Positive for myalgias. Negative for arthralgias. Skin: Negative. Allergic/Immunologic: Negative for environmental allergies. Neurological: Negative for headaches. Psychiatric/Behavioral: Negative. Physical Exam Vitals and nursing note reviewed. Constitutional: Appearance: Normal appearance. She is obese. She is ill-appearing. HENT: Head: Normocephalic and atraumatic. Right Ear: Tympanic membrane, ear canal and external ear normal. Left Ear: Tympanic membrane, ear canal and external ear normal. Nose: Nose normal. Mouth/Throat: Mouth: Mucous membranes are moist. Pharynx: Oropharynx is clear. Posterior oropharyngeal erythema present. Cardiovascular: Rate and Rhythm: Normal rate and regular rhythm. Heart sounds: Normal heart sounds. Pulmonary: Effort: Pulmonary effort is normal. Breath sounds: Normal breath sounds. Musculoskeletal: General: Normal range of motion. Cervical back: Neck supple. Skin: General: Skin is warm and dry. Neurological: General: No focal deficit present. Mental Status: She is alert and oriented to person, place, and time. Psychiatric: Mood and Affect: Mood normal. Behavior: Behavior normal. Vitals: 12/29/20 1059 BP: 132/84 BP Location: Left arm Patient Position: Sitting Pulse: 113 Resp: 18 Temp: 36.3 ??C (97.4 ??F) TempSrc: Temporal SpO2: 98% Weight: 83.5 kg (184 lb) Height: 162.6 cm (5' 4 ) Social History Tobacco Use Smoking Status Former Smoker ??? Packs/day: 0.50 ??? Years: 10.00 ??? Pack years: 5.00 ??? Types: Cigarettes ??? Quit date: 1999 ??? Years since quittin.8 Smokeless Tobacco Never Used Assessment/Plan Diagnoses and all orders for this visit: COVID-19 (Primary) - COVID-19 POC - predniSONE (DELTASONE) 20 mg tablet; Take 2 tablets (40 mg) by mouth daily for 5 days Orders Placed This Encounter Procedures ??? COVID-19 POC Order Specific Question: Is the Patient experiencing symptoms consistent with COVID? Answer: Yes Order Specific Question: Date of Symptom Onset Answer: 12/25/2020 Order Specific Question: Is the patient hospitalized? Answer: No Order Specific Question: Is the patient admitted to an ICU? Answer: No Order Specific Question: Does the patient currently work in a healthcare facility with direct patient contact? Answer: No Order Specific Question: Is the patient a resident of a congregate care or living setting? Answer: No Order Specific Question: Is the patient ? Answer: No Results for orders placed or performed in visit on 12/29/20 COVID-19 POC Result Value Ref Range COVID-19 Ag POC (BD Veritor) Positive (A) Presumptive Negative, Invalid # COVID-19 # symptoms compatible with COVID-19 s/p known exposure --10 day quarantine from date of symptom onset --OTC symptomatic treatment --briefly discussed monoclonal antibody therapy --encouraged vaccination per CDC recommendations --ED presentation w/ one or more of the following symptoms: fever uncontrolled with antipyretics, shortness of breath, chest discomfort, uncontrolled n/v/d --f/u with PCP post-quarantine if symptoms continue/worsen and to discussed vaccine options Patient Instructions: ?? Please start an antihistamine such as Claritin, Zyrtec, Alyse ?? Monitor for significant shortness of breath, chest discomfort: The symptoms warrant ED presentation immediately ?? Continue Tylenol for headache and ogrm-tyi-[id number] management of flu like symptoms ?? Be mindful of quarantine for 10 days from the onset of symptoms including avoiding public placesi.e. grocery stores, birthday parties, social functions ?? Continue to wear mask as directed by CDC Instructions following testing for COVID-19: Today you received test for SARS-COV2 (COVID-19). Please follow the instructions below regarding quarantine and return to work/daycare/school based on your results, symptoms and exposures. If you are NEGATIVE, AND: 1. NO symptoms and NO known/possible exposure: NO need to isolate. 2. NO symptoms and YES known/possible exposure: quarantine for 14 days after last potential exposure. A negative test of a specific day cannot be used to release from quarantine since the patience could become positive during the 14- day period. 3. YES symptoms and NO known/possible exposure: quarantine until without fever for 24 hours AND symptoms improve. 4. YES symptoms and YES known/possible exposure: you must quarantine for 14 days from last known exposure date. A negative test of a specific day cannot be used to release from quarantine since the patient could become positive during the 14 day period. 5. YES symptoms and YES known/possible exposure and HAVE BEEN VACCINATED: you ONLY QUARANTINE untilyou are fever free AND symptoms improve. 6. NO symptoms and YES known/possible exposure and HAVE BEEN VACCINATED: NO RECOMMENDATION FOR QUARANTINE. If you are POSITIVE and NOT VACCINATED: You should isolate for 10 days from onset of symptoms, NOT FROM DATE OF POSITIVE TEST. You must be without fever for 24 hours AND symptoms improving AND released by the local health department. All household contacts must quarantine for 14 days from last potential exposure to positive patient. If household contacts cannot fully isolate, then quarantine for household contacts extends for 14 days beyond the 10 days from start of symptoms (may be up to 24 days of quarantine). ??? COVID-19 is a highly communicable disease (very contagious) that is spread through droplets viacough, sneeze, speech at close contact. ??? You will need to continue to wear a mask per CDC guidelines. ??? If at any time you feel significantly short of breath or chest pain/tightness, or change in mental status please go to the ER. If you are POSITIVE and VACCINATED: ??? Although the risk that fully vaccinated people could become infected with COVID-19 is low, any fully vaccinated person who experiences symptoms consistent with COVID-19 should isolate themselves from others, be clinically evaluated for COVID-19, and tested for SARS-CoV-2 if indicated. ??? The fully vaccinated people that test positive for COVID should quarantine for 10-days from theonset of symptoms. ??? The symptomatic fully vaccinated person should inform their healthcare provider of their vaccination status at the time of presentation to care. COVID-19 vaccines are effective at protecting you from getting sick. Based on what we know about COVID-19 vaccines, people who have been fully vaccinated can do things that they had stopped doing because of the pandemic. These recommendations can help you make decisions about daily activities after you are fully vaccinated. They are not intended for healthcare settings. Have You Been Fully Vaccinated? In general, people are considered fully vaccinated: ? 2 weeks after their second dose in a 2-dose series, such as the Pfizer or Moderna vaccines, or ? ? 2 weeks after a single-dose vaccine, such as Bony & Bony? s Emeka vaccine ??? If you don???t meet these requirements, regardless of your age, you are NOT fully vaccinated. Keep taking all precautions until you are fully vaccinated. If you have a condition or are taking medications that weaken your immune system, you may NOT be fully protected even if you are fully vaccinated. Talk to your healthcare provider. Even after vaccination, you may need to continue taking all precautions. What You Can Do? If you???ve been fully vaccinated: ??? You can resume activities that you did prior to the pandemic. ??? You can resume activities without wearing a mask or staying 6 feet apart, except where requiredby federal, state, local, [place], or territorial laws, rules, and regulations, including local business and workplace guidance. ??? If you travel in the [place], you do not need to get tested before or after travel or self-quarantine after travel. ??? You need to pay close attention to the situation at your international destination before traveling outside the [place]. ??? You do NOT need to get tested before leaving the [place] unless your destination requiresit. ??? You still need to show a negative test result or documentation of recovery from COVID-19 beforeboarding an international flight to the [place]. ??? You should still get tested 3-5 days after international travel. ??? You do NOT need to self-quarantine after arriving in the [place]. ??? If you???ve been around someone who has COVID-19, you do not need to stay away from others or get tested unless you have symptoms. ??? However, if you live or work in a correctional or skilled nursing facility or a homeless halfway and are around someone who has COVID-19, you should still get tested, even if you don???t have symptoms. What You Should Keep Doing? For now, if you???ve been fully vaccinated: ??? You will still need to follow guidance at your workplace and local businesses. ??? If you travel, you should still take steps to protect yourself and others. ??? Masks are required on planes, buses, trains, and other forms of public transportation travelinginto, within, or out of the [facility] and in [place] transportation hubs such as airports and stations. Travelers are not required to wear a mask in outdoor areas of a conveyance (like on a ferry orthe top deck of a bus). CDC recommends that travelers who are not fully vaccinated continue to weara mask and maintain physical distance when traveling. ??? Fully vaccinated international travelers arriving in the [place] are still required to get tested 3 days before travel by air into the [place] (or show documentation of recovery from COVID-19 in the past 3 months) and should still get tested 3-5 days after their trip. ??? You should still watch out for symptoms of COVID-19, especially if you???ve been around someonewho is sick. If you have symptoms of COVID-19, you should get tested and stay home and away from others. ??? People who have a condition or are taking medications that weaken the immune system, should talk to their healthcare provider to discuss their activities. They may need to keep taking all precautions to prevent COVID-19. What We Know? COVID-19 vaccines are effective at preventing COVID-19 disease, especially severe illness and . ??? COVID-19 vaccines reduce the risk of people spreading COVID-19. What We???re Still Learning ??? How effective the vaccines are against variants of the virus that causes COVID-19. Early data show the vaccines may work against some variants but could be less effective against others. ??? How well the vaccines protect people with weakened immune systems, including people who take immunosuppressive medications. ??? How long COVID-19 vaccines can protect people. ??? As we know more, CDC will continue to update our recommendations for both vaccinated and unvaccinated people. All information from CDC web site Brief: Treatment plan including expectations, follow up, and return precautions discussed with patient/parent, verbalizes understanding. Medication dosage, use, and potential adverse reactions discussed with patient/parent. Advised to follow up with PCP if symptoms do not resolve as expected or sooner if condition worsens. Signs/symptoms warranting ER evaluation reviewed. Patient and/or guardian was given an opportunity to ask questions, questions answered. ??? Patient was wearing the following PPE: mask. ??? Provider wearing the following PPE: mask, gown, gloves, face shield. Birdie Ramey NP documented in this encounter Plan of Treatment Scheduled Procedures Name Priority Associated Diagnoses Date/Ti me ESOPHAGOGASTRODUODENOSCOPY Nausea Colon cancer screening COLONOSCOPY Nausea Colon cancer screening documented as of this encounter Procedures Procedure Name Priority Date/Time Associated Diagnosis Comments COVID-19 POC Routine 12/29/2020 11:09 AM CDT COVID-19 documented in this encounter Results * (ABNORMAL) COVID-19 POC (12/29/2020 11:09 AM CDT) COVID-19 Ag POC (BD Veritor) Positive( A) Presumptive Negative, Invalid [facility] Nasal 12/29/2020 11:0 9 AM CDT us Birdie Ramey NP POINT OF CARE TEST ORDERABL ES Final Result 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
--- OUTSIDE RECORDS SUMMARY | 2024-03-18 05:01 | XMS_ITS | Encounter Summary ---
Author Organization [facility] Address [address] [place] [address] Phone Care Team Providers Care Product Development Coordinator Name Role Phone Newton Mendiola MD Primary Care Provider [phone] Sly Cade MD Unavailable [phone] Tuyet Weir [facility] Unavailable [phone] Encounter Details Date Type Department Care Team (Late st Contact Info) Description 01/25/2021 Orders Only [facility] Surgery [address] [facility] 8th [place] [address] [place] [address] Eduardo Kwon MD [address] [place], [place] [id number] 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) Social History Tobacco [...] on file 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 Gender Identity Not on file Sexual Orientation Not on file documented as of this encounter Plan of Treatment Scheduled Procedures Name Priority Associated Diagnoses Date/Ti me ESOPHAGOGASTRODUODENOSCOPY Nausea Colon cancer screening COLONOSCOPY Nausea Colon cancer screening documented as of this encounter Visit Diagnoses Diagnosis Dissection of thoracic aorta (HCC)- Primary Dissection of aorta, thoracic documented in this encounter Additional Health Concerns Infection Onset Date Last Indicated Resolved Time COVID19 12/29/2020 12/29/2020 01/29/2021 3:05 AM DINING SERVER documented as of this encounter Care Teams Product Development Coordinator Relationship Specialty Start Date End Date Newton Mendiola MD [address] [facility] [address] [place] [address] PCP - General 06/09/16 Sly Cade MD [address] [facility] [address] [place] [address] Referring Physician Cardiology 12/07/18 Tuyet Weir, JOSE [address] [facility] ([facility]) Mailstop [id number] [place] [address] [facility] Outpatient Certified Medical Technician Assistant 01/16/21 02/11/21 documented as of this encounter
--- OUTSIDE RECORDS SUMMARY | 2024-03-18 05:01 | XMS_ITS | Encounter Summary ---
Author Organization [facility] Address [address] [place] [address] Care Team Providers Care Applications Administrator Name Role Phone Newton Mendiola MD Primary Care Provider Sly Cade MD Unavailable [phone] Encounter Details Date Type Department Care Team (Late st Contact Info) Description 12/14/2020 Telephone [facility] [address] [place] [id number] Dori Arango RT Social History Tobacco Use Types Packs/Day Years Used Date Smoking Tobacco: Former Cigarettes 0.5 10 1 990 - 2000 Smokeless Tobacco: Never Alcohol Use Standard Drinks/Week Comments No 0 (1 standard drink = 0.6 oz pur e alcohol) Comments No Sex and Gender Information Value Date Recorded Sex Assigned at Not on file 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 Gender Identity Not on file Sexual Orientation Not on file documented as of this encounter Miscellaneous Notes * Telephone Encounter - Dori Arango RT - 12/14/2020 2:09 PM CDT Confirmed @ 14:10 documented in this encounter Plan of Treatment Scheduled Procedures Name Priority Associated Diagnoses Date/Ti me ESOPHAGOGASTRODUODENOSCOPY Nausea Colon cancer screening COLONOSCOPY Nausea Colon cancer screening documented as of this encounter Visit Diagnoses Not on filedocumented in this encounter Care Teams Applications Administrator Relationship Specialty Start Date End Date Newton Mendiola MD [address] [facility] [address] [place] [address] PCP - General 06/09/16 Sly Cade MD [address] [facility] [address] [place] [address] Referring Physician Cardiology 12/07/18 documented as of this encounter
--- OUTSIDE RECORDS SUMMARY | 2024-03-18 05:01 | XMS_ITS | Encounter Summary ---
Author Organization [facility] Address [address] [address] Care Team Providers Care Philosophy Faculty Member Name Role Phone Newton Mendiola MD Primary Care Provider [phone] Sly Cade MD Unavailable [phone] Reason for Referral * MRI/CAT/PET Scan (Routine) - Closed Specialty Diagnoses / Procedures Referred By Nino fletcher Referred To Contact Radiology Diagnoses Acute recurrent pansinusitis Procedures CT Sinus Stealth WO Contrast Sheila So DO [address] [place] [address] DR CATHLEEN Arevalo [address] [address] Phone: tel: fax: [address] [address] Referral ID Status Reason Start Date Expiration Date Visits Re quested Visits Authorized [id number] Closed 12/11/2020 01/27/2021 1 1 Reason for Visit * Reason Comments Sinusitis * Consultation (Routine) - Closed Specialty Diagnoses / Procedures Referred By Nino fletcher Referred To Contact Otolaryngology Diagnoses Acute recurrent pansinusitis Fluid level behind tympanic membrane of left ear Birdie Ramey NP Phone: tel: fax: Sheila So DO [address] [place] [address] DR CATHLEEN Arevalo [address] [address] Phone: tel: fax: Referral ID Status Reason Start Date Expiration Date V isits Requested Visits Authorized [id number] Closed Specialty Services Required 10/08/2020 11/07/2021 1 1 Encounter Details Date Type Department Care Team (Late st Contact Info) Description 12/11/2020 2:40 PM CDT Office Visit [facility] E[facility]ists - [facility] [address] [facility] [address] [place] [address] Sheila So, [address] [place] [address] Allergic rhinitis, unspecified seasonality, unspecified trigger (Primary Dx); Acute recurrent pansinusitis; Fluid level behind tympanic membrane of left ear Social History Tobacco Use Types Packs/Day Years Used Date Smoking Tobacco: Former Cigarettes 0.5 10 1 990 - 2000 Smokeless Tobacco: Never Alcohol Use Standard Drinks/Week Comments No 0 (1 standard drink = 0.6 oz pur e alcohol) Comments No Sex and Gender Information Value Date Recorded Sex Assigned at Not on file 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 Gender Identity Not on file Sexual Orientation Not on file documented as of this encounter Last Filed Vital Signs Vital Sign Reading Time Taken Comments Blood Pressure 135/74 12/11/2020 2:42 PM CDT Pulse 84 12/11/2020 2:42 PM CDT Temperature 36.2 ??C (97.1 ??F) 12/11/2020 2:42 PM CD T Respiratory Rate - - Oxygen Saturation - - Inhaled Oxygen Concentration - - Weight 87.1 kg (192 lb) 12/11/2020 2:42 PM CDT Height 162.6 cm (5' 4 ) 12/11/2020 2:42 PM CDT Body Mass Index 32.96 12/11/2020 2:42 PM CDT documented in this encounter Patient Instructions * Patient Instructions* Sheila So DO - 12/11/2020 2:40 PM CDT Blood allergy testing - call with results CT sinus - call with results Flonase 2 sprays into each nostril while looking down over the sink, do not sniff in or blow nose after use for at least 30 minutes daily Switching to Cetirizine 10 mg daily (Zyrtec) documented in this encounter Ordered Prescriptions Prescription Sig Dispense Quantity Refills Last Filled Start Date End Date fluticasone propionate (FLONASE) 50 mcg/actuation nasal sprayIndications:A llergic rhinitis, unspecified seasonality, unspecified trigger Administer 2 sprays into each nostril daily 16 g 11 12/11/2020 2 documented in this encounter Progress Notes * Sheila So DO - 12/11/2020 2:40 PM CDT Images from the original note were not included. ENT Consult Reason for Consult: sinusitis Requesting Provider: Newton Mendiola MD SUBJECTIVE: Patient is a 55 y.o. female with chief complaint of sinusitis. HPI: [place] reported location of complaint was nose. This compliant quality was reported as intermittent and has a severity of moderate. The duration of this complaint was the last many years. Onset of this problems was many years and was associated with 4-5 sinus infections this year resulting in oral antibiotics with improvement in symptoms after second round of antibiotics symptoms return after 2 two weeks. Last round of antibiotics was 6 weeks ago, 10 days of Azithromycin. Denied nasal injury or surgery at onset of symptoms. Three dogs. Denied allergy testing. Had a reaction to catexposure breaking out in hives for three days starting November 05 2020. Using Flonase 5/7 days, Claritin every day. FH: Multiple family members with Allergies Past Medical History: Diagnosis Date ??? CHF (congestive heart failure) (CMS/HCC) ([facility]) ??? Hodgkin lymphoma ([facility]) 09/09/2016 ??? Hypertension Patient Active Problem List Diagnosis ??? LV dysfunction ??? LBBB (left bundle branch block) ??? Mixed hyperlipidemia ??? Chronic insomnia ??? Cardiomyopathy (HCC) ??? Chronic systolic (congestive) heart failure (HCC) ??? Gastroesophageal reflux disease without esophagitis ??? Hypertension ??? Obesity with body mass index 30 or greater ??? Snoring ??? Systolic dysfunction ??? Insomnia ??? Prediabetes ??? Lesion of right ear ??? Grief at loss of child ??? Allergic rhinitis History reviewed. No pertinent surgical history. Social History Tobacco Use ??? Smoking status: Former Smoker Packs/day: 0.50 Years: 10.00 Pack years: 5.00 Types: Cigarettes Quit date: 2000 Years since quittin.7 ??? Smokeless tobacco: Never Used Substance Use Topics ??? Alcohol use: No ??? Drug use: Not on file Family History Problem Relation Age of Onset ??? Hypertension Mother ??? Hyperlipidemia Mother ??? Hypertension Father ??? Hyperlipidemia Father ??? Diabetes Father Current Outpatient Medications on File Prior to Visit Medication Sig Dispense Refill ??? aspirin 81 mg tablet Take 81 mg by mouth daily ??? atorvastatin (LIPITOR) 10 mg tablet Take 1 tablet (10 mg total) by mouth nightly 90 tablet 0 ??? buPROPion XL (WELLBUTRIN XL) 300 mg 24 hr tablet TAKE 1 TABLET BY MOUTH EVERY DAY (Patient taking differently: Take 300 mg by mouth every morning ) 90 tablet 1 ??? dapagliflozin (FARXIGA) 5 mg tablet Take 1 tablet (5 mg total) by mouth daily 30 tablet 0 ??? ergocalciferol (VITAMIN D) 50,000 unit capsule Take 1 capsule (50,000 Units total) by mouth once a week fridays 12 capsule 1 ??? fluticasone (CHILDREN'S FLONASE ALLERGY RLF) 50 mcg/actuation nasal spray Administer 1 spray into each nostril daily as needed ??? isosorbide mononitrate ER (IMDUR) 30 mg 24 hr tablet TAKE 1 TABLET BY MOUTH EVERY DAY 90 tablet1 ??? loratadine (CLARITIN) 10 mg tablet Take 10 mg by mouth daily ??? losartan (COZAAR) 50 mg tablet Take 1 tablet (50 mg total) by mouth daily 90 tablet 3 ??? metoprolol XL (TOPROL-XL) 100 mg 24 hr tablet Take 1 tablet (100 mg total) by mouth daily 90 tablet 3 ??? ondansetron (Zofran) 4 mg tablet Take 1 tablet (4 mg total) by mouth every 8 (eight) hours as needed for nausea or vomiting 20 tablet 0 ??? pantoprazole DR (PROTONIX) 40 mg EC tablet TAKE 1 TABLET BY MOUTH EVERY DAY (Patient taking differently: Take 40 mg by mouth daily ) 90 tablet 1 ??? spironolactone (ALDACTONE) 25 mg tablet Take 1 tablet (25 mg total) by mouth daily 90 tablet 3 No current facility-administered medications on file prior to visit. Allergies Allergen Reactions ??? Codeine Other (See comments) and Vomiting Reaction: RASH;, ??? Hydrocodone Vomiting ??? Penicillin Other (See comments) Reaction: UNKNOWN, OBJECTIVE: Vitals BP 135/74 (BP Location: Left arm, Patient Position: Sitting) Pulse 84 Temp 36.2 ??C (97.1 ??F) (Temporal) Ht 162.6 cm (5' 4 ) Wt 87.1 kg (192 lb) BMI 32.96 kg/m?? Review of Systems Constitutional: Negative. Negative for chills, fatigue and fever. HENT: Positive for congestion, postnasal drip, rhinorrhea, sinus pressure and sinus pain. Negative for ear discharge, ear pain, hearing loss, nosebleeds, sore throat, tinnitus, trouble swallowing andvoice change. Eyes: Negative. Negative for pain and discharge. Respiratory: Negative for apnea, cough, choking, shortness of breath, wheezing and stridor. Cardiovascular: Negative for chest pain, palpitations and leg swelling. Gastrointestinal: Negative for abdominal pain, constipation, nausea and vomiting. Negative for Heartburn, trouble swallowing foods or liquids Endocrine: Negative. Negative for cold intolerance and heat intolerance. Musculoskeletal: Negative. Negative for arthralgias, joint swelling, myalgias, neck pain and neck stiffness. Skin: Negative. Negative for color change, rash and wound. Negative for new skin lesions Allergic/Immunologic: Negative. Negative for environmental allergies and food allergies. Neurological: Negative. Negative for dizziness, syncope, speech difficulty, light-headedness and headaches. Hematological: Negative. Negative for adenopathy. Does not bruise/bleed easily. Psychiatric/Behavioral: Negative for agitation, behavioral problems and dysphoric mood. The patientis not nervous/anxious. Physical Exam Constitutional: She is oriented to person, place, and time. She appears well- developed. She is cooperative. No distress. HENT: Head: Normocephalic and atraumatic. Right Ear: Hearing, tympanic membrane, external ear and ear canal normal. Left Ear: Hearing, tympanic membrane, external ear and ear canal normal. Nose: Mucosal edema present. No rhinorrhea, sinus tenderness or nasal deformity. Mouth/Throat: Uvula is midline and mucous membranes are normal. No oral lesions. Posterior oropharyngeal erythema present. Tonsils are 1+ on the right. Tonsils are 1+ on the left. Eyes: Pupils are equal, round, and reactive to light. Conjunctivae and lids are normal. Neck: Trachea normal. Cardiovascular: No edema, no JVD, normal distal perfusion Pulmonary/Chest: Effort normal. No respiratory distress. No cough, wheezing or stridor Abdominal: Normal appearance. Musculoskeletal: General: Normal range of motion. Left shoulder: Normal. Cervical back: Full passive range of motion without pain and neck supple. Lymphadenopathy: She has no cervical adenopathy. Neurological: She is alert and oriented to person, place, and time. No cranial nerve deficit. Coordination and gait normal. Skin: Skin is warm and dry. No rash noted. Nails show no clubbing. Psychiatric: Her speech is normal and behavior is normal. Examination of the pharynx with use of the laryngeal mirror was not able to be performed due to patient discomfort Neck: no palpable abnormality of submandibular or parotid gland Facial Nerve strength intact and symmetric Nasopharyngolaryngoscope procedure Patient was seen and examined, verbal consent was obtained. Laryngeal mirror attempted but unsuccessful due to patient's gag reflex. Afrin and lidocaine were applied into each nasal cavity and after allowing time for local the congestion, flexible fiberoptic scope was introduced into each nasal cavity noting nasal vestibule nasal septum inferior, middle, and superior turbinates. The lateral nasalwall, posterior nasal septum nasopharynx including torus tubarius, fossa of Rosenmuller, posterior nasopharynx and eustachian tube orifice were examined today. Scope was passed further into the oropharynx noting soft palate, base of tongue, vallecula, lingual and laryngeal surfaces of the epiglottis, then further the the larynx noting arytenoids, false and true vocal folds, pyriform sinuses and post-cricoid region. Patient was directed to phonate and swallow. Findings: Intranasally: no masses, polyps or purulence bilaterally, larynx: diffuse inflammation, vocal fold movement was symmetric to midline, swallow intact, no masses, polyps, lesions or ulcers. Assessment & Plan: Diagnoses and all orders for this visit: Allergic rhinitis, unspecified seasonality, unspecified trigger (Primary) Assessment & Plan: Blood allergy testing - call with results CT sinus - call with results Flonase 2 sprays into each nostril while looking down over the sink, do not sniff in or blow nose after use for at least 30 minutes daily Switching to Cetirizine 10 mg daily (Zyrtec) Consider adding Pepcid if CT sinus clear Orders: - fluticasone propionate (FLONASE) 50 mcg/actuation nasal spray; Administer 2 sprays into each nostril daily - Expanded respiratory allergy profile; Future Acute recurrent pansinusitis - Ambulatory referral to ENT - CT Sinus Stealth WO Contrast; Future Fluid level behind tympanic membrane of left ear - Ambulatory referral to ENT Sheila So DO documented in this encounter Miscellaneous Notes * Assessment & Plan Note - Sheila So DO - 12/11/2020 3:17 PM CDT Associated Problem(s): Allergic rhinitis Blood allergy testing - call with results CT sinus - call with results Flonase 2 sprays into each nostril while looking down over the sink, do not sniff in or blow nose after use for at least 30 minutes daily Switching to Cetirizine 10 mg daily (Zyrtec) Consider adding Pepcid if CT sinus clear documented in this encounter Plan of Treatment Scheduled Procedures Name Priority Associated Diagnoses Date/Ti mo ESOPHAGOGASTRODUODENOSCOPY Nausea Colon cancer screening COLONOSCOPY Nausea Colon cancer screening documented as of this encounter Results * CT Sinus Stealth WO Contrast (12/17/2020 7:36 AM CDT) Anatomical Region Laterality Modality Head N/A Computed Tomogra phy 12/17/2020 7:38 AM CDT Narrative 12/17/2020 7:40 AM CDT EXAM DESCRIPTION: ?? CT SINUS STEALTH WO CONTRAST REASON FOR STUDY: ?? Sinusitis, chronic or recurrent ??Recurrent sinusitis, midline sinus pain, sometimes get shooting pain that radiates over right eye, no prior sinus surgery ??STEALTH protocol ?? TECHNIQUE: ??Noncontrast scanning through the paranasal sinuses using bone algorithm. ??Reconstructed MPR images reviewed. ??All images stored on PACS. ?? Automated exposure control was used as a dose optimization technique for this examination. COMPARISON: ?? None FINDINGS: There is minimal right maxillary sinus mucosal thickening. ??No air-fluid levels in the paranasal sinuses. ??The ostiomeatal units are patent. ??There is leftward nasal septal deviation and small leftward nasal spur. ??There is no garry bullosa or Rochelle cell. IMPRESSION: ?? Minimal chronic right maxillary sinus disease THIS IS AN ELECTRONICALLY VERIFIED FINAL REPORT 12/17/2020 7:40 AM - Electronically signed by Jermain Live M.D., JR: D: ??12/17/2020 7:40 AM T: ??12/17/2020 7:40 AM Report ID: [id number] Reading Location: ??[id number] Procedure Note Jermain Live MD - 12/17/2020 EXAM DESCRIPTION: CT SINUS STEALTH WO CONTRAST REASON FOR STUDY: Sinusitis, chronic or recurrent Recurrent sinusitis, midline sinus pain, sometimes get shooting pain that radiates over righteye, no prior sinus surgery STEALTH protocol TECHNIQUE: Noncontrast scanning through the paranasal sinuses using bone algorithm. Reconstructed MPR images reviewed. All images stored on PACS. Automated exposure control was used as a dose optimization technique forthis examination. COMPARISON: None FINDINGS: There is minimal right maxillary sinus mucosal thickening. No air-fluid levels in the paranasal sinuses. The ostiomeatal units are patent. Thereis leftward nasal septal deviation and small leftward nasal spur. There isno garry bullosa or Rochelle cell. IMPRESSION: Minimal chronic right maxillary sinus disease THIS IS AN ELECTRONICALLY VERIFIED FINAL REPORT 12/17/2020 7:40 AM - Electronically signed by Jermain Live M.D., JR: Report ID: [id number] Reading Location: [id number] Sheila So DO IMG CT PROCEDURES Final Resu lt * (ABNORMAL) Expanded respiratory allergy profile (12/11/2020 3:54 PM CDT) Alternaria tenius IgE <0.10 0.00 - 0.34 kUnits/L [facility]) Comment:Testing performed by : [facility], [place]., [address] Tyshawn white IgE <0.10 0.00 - 0.34 kUnits/L [facility] ([place]) Comment:Testing performed by : [facility], [place]., [address] Aspergillus fumigatus IgE <0.10 0.00 - 0.34 kUnits/L [facility]) Comment:Testing performed by : [facility], [facility], [address] B[place] grass IgE <0.10 0.00 - 0.34 kUnits/L [facility] ([place]) Comment:Testing performed by : [facility], [place]., [address] Cat dander IgE <0.10 0.00 - 0.34 kUnits/L [facility]) Comment:Testing performed by : [place]., [address] Cladosporium herbarum IgE <0.10 0.00 - 0.34 kUnits/L [facility] ([place]) Comment:Testing performed by : [place]., [address] Cockroach IgE <0.10 0.00 - 0.34 kUnits/L [facility] ([place]) Comment:Testing performed by : [place]., [address] [place] IgE <0.10 0.00 - 0.34 kUnits/L [facility]) Comment:Testing performed by : [facility], [address] Dermatophyton farinae IgE <0.10 0.00 - 0.34 kUnits/L [facility] ([place]) Comment:Testing performed by : [facility], [place]., [address] Dermatophyton pteronyssinus IgE <0.10 0.00 - 0.34 kUnits/L [facility] ([place]) Comment:Testing performed by : [facility], [place]., [address] Dog dander IgE <0.10 0.00 - 0.34 kUnits/L [facility]) Comment:Testing performed by : [facility], [place]., [address] Elm IgE <0.10 0.00 - 0.34 kUnits/L [facility] ([place]) Comment:Testing performed by : [facility], [place]., [address] Maple/box elder IgE <0.10 0.00 - 0.34 kUnits/L [facility]) Comment:Testing performed by : [facility], [place]., [address] Mountain juniper IgE <0.10 0.00 - 0.34 kUnits/L [facility]) Comment:Testing performed by : [facility], [place]., [address] [place] IgE <0.10 0.00 - 0.34 kUnits/L [facility] ([place]) Comment:Testing performed by : [facility], [place]., [address] [place] IgE <0.10 0.00 - 0.34 kUnits/L [facility]) Comment:Testing performed by : [facility], [place]., [address] Pecan (tree) IgE <0.10 0.00 - 0.34 kUnits/L [facility]) Comment:Testing performed by : [facility], [place]., [address] Penicillium chrysogenum IgE <0.10 0.00 - 0.34 kUnits/L [facility]) Comment:Testing performed by : [facility], [place]., [address] Ragweed common IgE <0.10 0.00 - 0.34 kUnits/L [facility] ([place]) Comment:Testing performed by : [facility], [place]., [address] Marshelder rough IgE <0.10 0.00 - 0.34 kUnits/L [facility]) Comment:Testing performed by : [facility], [place]., [address] Pigweed rough IgE <0.10 0.00 - 0.34 kUnits/L [facility]) Comment:Testing performed by : [facility], [place]., [address] Thistle serbian IgE <0.10 0.00 - 0.34 kUnits/L [facility]) Comment:Testing performed by : [facility], [place]., [address] [place] IgE <0.10 0.00 - 0.34 kUnits/L [facility] ([place]) Comment:Testing performed by : [place]., [address] Rio grass IgE <0.10 0.00 - 0.34 kUnits/L [facility]) Comment:Testing performed by : [facility], [place]., [address] [place] (tree) IgE <0.10 0.00 - 0.34 kUnits/L [facility]) Comment:Testing performed by : [facility], [place]., [address] IgE 0.1(L) 1.0 - 100.0 IUnits/mL [facility]) Comment: Repeated and verified. Testing performed by: [facility], [address] Blood 12/11/2020 3:54 PM CDT 12/12/2020 10:02 AM CDT us Sheila Molina Muniralexander DO LAB BLOOD ORDERABLES Final R esult [facility]) [address] [facility] Department of [employer] [place], [place] [id number] documented in this encounter Visit Diagnoses Diagnosis Allergic rhinitis, unspecified seasonality, unspecified trigger- Primary Acute recurrent pansinusitis Fluid level behind tympanic membrane of left ear Acute recurrent pansinusitis documented in this encounter Orders Outpatient Referral Count Last Ordered Date Fir st Ordered Date AMB REFERRAL TO ENT 1 12/11/2020 documented in this encounter Care Teams Philosophy Faculty Member Relationship Specialty Start Date End Date Newton Mendiola MD [address] [address] PCP - General 06/09/16 Sly Cade MD [address] [address] Referring Physician Cardiology 12/07/18 documented as of this encounter
--- OUTSIDE RECORDS SUMMARY | 2024-03-18 05:01 | XMS_ITS | Encounter Summary ---
Author Organization [facility] Healthcare Address [address] [place] [id number] Care Team Providers Care Call Center Supervisor Name Role Phone Newton Mendiola MD Primary Care Provider [phone] Sly Cade MD Unavailable [phone] Encounter Details Date Type Department Care Team (Latest Contact Info) Description 01/11/2021 7:32 AM CDT - 01/11/2021 11:59 PM CDT Hospital Encounter [facility] [address] [place] [address] Discharge Disposition: Discharge to home or self [...] on file Legal Sex Female 7:55 AM [employer] Gender Identity Not on file Sexual Orientation [...] ECHO (TTE) COMPLETE W DOPPLER/CF W CONTRAST W BUBBLE STAT 01/11/2021 9:38 AM CDT documented in this encounter Visit Diagnoses Not on filedocumented in this encounter Administered Medications Inactive Administered Medications - up to 3 most recent administrations Medication Order MAR Action Action Date Dose Rate Site perflutren protein-a (OPTISON) 3 mL in sodium chloride 0.9% 8 mL syringe 1-8 mL, intravenous, Once in imaging, contrast, Starting on Thu01/11/21 at 0743, For 1 dose, Intra-Procedure (CV) Contrast Given 01/11/2021 9:10 AM CDT 7 mL documented in this encounter Additional Health Concerns Infection Onset Date Last Indicated Resolved Time COVID19 12/29/2020 12/29/2020 01/29/2021 3:05 AM [employer] documented as of this encounter Care Teams Call Center Supervisor Relationship Specialty Start Date End Date Newton Mendiola MD [address] [address] PCP - General 06/09/16 Sly Cade MD [address] [address] Referring Physician Cardiology 12/07/18 documented as of this encounter
--- OUTSIDE RECORDS SUMMARY | 2024-03-18 05:01 | XMS_ITS | Encounter Summary ---
Author Organization [facility] Healthcare Address [address] [place] [id number] Care Team Providers Care Cable Splicer Apprentice Name Role Phone Newton Mendiola MD Primary Care Provider [phone] Sly Cade MD Unavailable [phone] Reason for Visit * Reason Comments Abdominal Pain Encounter Details Date Type Department Care Team (Late st Contact Info) Description 01/10/2021 5:28 PM CDT - 01/10/2021 9:33 PM CDT Emergency [facility] Emergency Department [address] [place] [id number] Soy Mckee MD [facility] [place] [address] 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); Splenic infarct Discharge Disposition: Discharge to a short term hospital for IP Social History Tobacco Use Types Packs/Day Years Used Date Smoking Tobacco: Former Cigarettes 0.5 10 1 990 - 1999 Smokeless Tobacco: Never Alcohol Use Standard Drinks/Week Comments No 0 (1 standard drink = 0.6 oz pur e alcohol) Comments No Sex and Gender Information Value Date Recorded Sex Assigned at Not on file Legal 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 Gender Identity Not on file Sexual Orientation Not on file documented as of this encounter Last Filed Vital Signs Vital Sign Reading Time Taken Comments Blood Pressure 140/78 01/10/2021 9:15 PM CDT Pulse 102 01/10/2021 9:15 PM CDT Temperature 36.7 ??C (98 ??F) 01/10/2021 9:10 PM CDT Respiratory Rate 26 01/10/2021 9:15 PM CDT Oxygen Saturation 95% 01/10/2021 9:15 PM CDT Inhaled Oxygen Concentration - - Weight 81.6 kg (180 lb) 01/10/2021 1:57 PM CDT Height 162.6 cm (5' 4 ) 01/10/2021 1:57 PM CDT Body Mass Index 30.9 01/10/2021 1:57 PM CDT documented in this encounter Discharge Diagnoses Diagnosis Embolism and thrombosis of unspecified parts of aorta (HCC) - EMBOLISM AND THROMBOSIS OF UNSPECIFIED PARTS OF AORTA Infarction of spleen - INFARCTION OF SPLEEN Personal history of COVID-19 - PERSONAL HISTORY OF COVID-19 Hyperlipidemia, unspecified - HYPERLIPIDEMIA, UNSPECIFIED Hypertensive heart disease with heart failure (CMS/HCC) (HCC) - HYPERTENSIVE HEART DISEASE WITH HEART FAILURE Unspecified hypertensive heart disease with heart failure Heart failure, unspecified (CMS/HCC) (HCC) - HEART FAILURE, UNSPECIFIED Heart failure, unspecified Cardiomyopathy, unspecified (HCC) - CARDIOMYOPATHY, UNSPECIFIED Gastro-esophageal reflux disease without esophagitis - GASTRO-ESOPHAGEAL REFLUX DISEASE WITHOUT ESOPHAGITIS Personal history of nicotine dependence - PERSONAL HISTORY OF NICOTINE DEPENDENCE Personal history of Hodgkin lymphoma - PERSONAL HISTORY OF HODGKIN LYMPHOMA Acquired absence of other specified parts of digestive tract - ACQUIRED ABSENCE OF OTHER SPECIFIED PARTS OF DIGESTIVE TRACT documented in this encounter Medications at Time [...] Disposition Code Departure Means Destination Discharge to a short term hospital for [facility] documented in this encounter Progress Notes * Carmita Pierce RPh - 01/10/2021 9:10 PM CDT Initiate heparin drip at 18 units/kg/hr (1469 units/hr, using weight of 81.6 kg) for indiction of venous thrombosis, with low bleeding risk. Draw PTT at 0300 01/11/2021. Goal PTT=60-94 seconds Pharmacy will adjust orders based on lab values. Required Baseline labs: PT-INR, CBC, aPTT or anti Xa, and serum creatinine within 48 hours prior tothe initiation. If any of these labs have not been drawn in the 48 hours prior to the anticoagulantorder, the pharmacist should order STAT before starting therapy. Recent Labs Lab Units 01/10/21 1458 WBC K/cumm 12.6* HEMOGLOBIN g/dL 12.5 HEMATOCRIT % 37.7 PLATELETS K/cumm 466* Lab Results Lab Value Date/Time APTT 28.6 01/05/2017 1639 Serum creatinine: 0.66 mg/dL 01/10/21 1458 Estimated creatinine clearance: 83.2 mL/min Required Monitoring: PTT q6h after each bolus or rate change until two consecutive PTT's are in therapeutic range, then daily PTT. CBC q72hrs - Notify physician if platelets fall below 100,000, or decrease by > 50% from baseline. Thank you, Carmita Pierce RPh [facility] Pharmacy department documented in this encounter ED Notes * Soy Mckee MD - 01/10/2021 5:59 PM CDTAssociated Order(s): Critical Care; ECG 12 lead Chief Complaint Patient presents with ??? Abdominal Pain HPI HPI 01/10/2021 5:59 PM Katy Sauceda is a 55 y.o. female former smoker with a h/o Hodgkin lymphoma, CHF, cardiomyopathy, HTN, HLD, and GERD who presents to the ED c/o worsening stabbing LUQ pain for approximately 6 hours. Pt states pain radiates up to her ribs and to her back. She denies SOB, chest pain, N/V/D, and constipation. She does state that starting yesterday she has no urge to urinate and that she cannot feel her bladder. Pt states she just goes to the bathroom when she feels like she should. She reports dark urine. Pt states she recently tested positive for COVID-19. She has h/o cholecystectomy anddenies h/o appendectomy. No exacerbating or alleviating factors. No other complaints at this time. Per Chart Review: Tested positive for COVID-19 using COVID-19 Ag POC on 12/29/2020. Dr. Remy is pt's wringer and setter. Past Medical History: Diagnosis Date ??? CHF (congestive heart failure) (CMS/HCC) (HCC) ??? Hodgkin lymphoma (HCC) 09/09/2016 ??? Hypertension History reviewed. No pertinent surgical history. Family History Problem Relation Age of Onset ??? Hypertension Mother ??? Hyperlipidemia Mother ??? Hypertension Father ??? Hyperlipidemia Father ??? Diabetes Father Social History Tobacco Use ??? Smoking status: Former Smoker Packs/day: 0.50 Years: 10.00 Pack years: 5.00 Types: Cigarettes Quit date: 2000 Years since quittin.8 ??? Smokeless tobacco: Never Used Substance Use Topics ??? Alcohol use: No ??? Drug use: Not Currently Review of Systems Review of Systems Constitutional: Negative for chills and fever. HENT: Negative for ear pain and sore throat. Eyes: Negative for pain and visual disturbance. Respiratory: Negative for cough and shortness of breath. Cardiovascular: Negative for chest pain and palpitations. Gastrointestinal: Positive for abdominal pain (LUQ.). Negative for constipation, diarrhea, nausea and vomiting. Genitourinary: Negative for dysuria, hematuria and urgency. + Dark urine. Musculoskeletal: Negative for arthralgias and back pain. Skin: Negative for color change and rash. Neurological: Negative for seizures and syncope. Psychiatric/Behavioral: Negative for behavioral problems. All other systems reviewed and are negative. Physical Exam ED Triage Vitals [01/10/21 1357] Temp Pulse Resp BP SpO2 36.7 ??C (98 ??F) 108 16 148/83 98 % Temp src Heart Rate Source Patient Position BP Location FiO2 (%) Temporal -- -- -- -- Physical Exam Vitals and nursing note reviewed. Constitutional: General: She is not in acute distress. Appearance: She is well-developed. HENT: Head: Normocephalic and atraumatic. Eyes: Conjunctiva/sclera: Conjunctivae normal. Cardiovascular: Rate and Rhythm: Normal rate and regular rhythm. Heart sounds: Normal heart sounds. No murmur heard. Pulmonary: Effort: Pulmonary effort is normal. No respiratory distress. Breath sounds: Normal breath sounds. Abdominal: General: Bowel sounds are normal. There is no distension. Palpations: Abdomen is soft. Tenderness: There is abdominal tenderness (Mild.) in the left upper quadrant. There is no guarding or rebound. Comments: No referral. Musculoskeletal: Cervical back: Neck supple. Skin: General: Skin is warm and dry. Neurological: Mental Status: She is alert and oriented to person, place, and time. Psychiatric: Behavior: Behavior normal. ECG 12 lead Date/Time: 01/10/2021 8:39 PM Performed by: Soy Mckee MD Authorized by: Soy Mckee MD Rate: ECG rate: 127 ECG rate assessment: tachycardic Rhythm: Rhythm: sinus tachycardia Comments: Left bundle branch block. EKG consistent with prior EKG from 05/20/2020. Critical Care Performed by: Soy Mckee MD Authorized by: Soy Mckee MD Critical care provider statement: As reflected in the history, physical exam, orders, notes, and/or MDM, I was personally present while the patient was critically ill and provided critical care services for approximately 40 minutes, excluding time involved in separately billable procedures. Critical care was necessary to treat or prevent imminent or life-threatening deterioration of the following condition(s): Acute blood pressure management. Critical care was time spent by me providing the following: serial bedside patient exams, interpretation of bedside monitors, imaging, and arterial/venous lab draws, continuous pulse oximetry and continuous telemetry IV heparin. I provided emergent necessary critical care medicine services to this patient. I ordered and reviewed test results and/or imaging studies. I spent time discussing the management of this critically ill patient with consultants and the medical staff. I spent time discussing the management and therapeutic options for this critically ill patient with the patient themselves or with the appropriate designated surrogate decision-maker. I spent time documenting in the medical record. Labs Reviewed URINALYSIS AND REFLEX TO MICROSCOPIC AND CULTURE - Abnormal Result Value Color, ur Yellow Clarity, ur Turbid (*) Specific gravity, ur 1.029 pH, urine 6.0 Protein, ur ql 1+ (*) Glucose, ur ql 2+ (*) Ketones, ur Negative Bilirubin, ur Negative Blood, ur Trace (*) Urobilinogen, ur <2.0 Nitrite, ur Negative Leukocyte esterase, ur Negative UA reflex comment Reflex to microscopic UA will be performed. Narrative: Urine pH is affected by diet, medications, systemic acid-base disturbances, and renal tubular function. pH may affect urinary stone formation. For example, urine pH below 6.0 may help reduce the tendency for calcium phosphate stones and pH greater than 6.0 may reduce the tendency for uric acid stone formation. Source: [facility] [employer].Last revised 03-26-2017 COMPREHENSIVE METABOLIC PANEL - Abnormal Sodium 140 Potassium, pl 3.2 (*) Chloride 106 CO2 21 (*) Anion gap 13 BUN 8 Creatinine 0.66 Glucose 133 Calcium 9.3 Bilirubin, total 0.3 Protein, pl 7.3 Albumin 3.8 Alk phos 80 ALT 26 AST 14 CBC WITH AUTO DIFFERENTIAL - Abnormal WBC 12.6 (*) Hgb 12.5 Hct 37.7 Plt 466 (*) MPV 8.8 (*) RBC 4.41 MCV 85.5 MCH 28.3 MCHC 33.2 RDW CV 13.0 RDW SD 40.4 NRBC abs 0.00 URINALYSIS, MICROSCOPIC ONLY - Abnormal WBC, ur 6-10 (*) RBC, ur 3-5 (*) Epithelial cells, squamous, ur 1-5 Mucous, ur Present (*) Hyaline casts, ur 11-20 (*) Culture Reflex Comment Value: Reflex conditions for urine culture (WBC >10) not met. DIFFERENTIAL AUTO - Abnormal Neutrophil abs 8.5 (*) Imm gran abs 0.1 Lymphocyte abs 3.0 Monocyte abs 0.9 (*) Eosinophil abs 0.0 Basophil abs 0.1 Neutrophil pct 67.8 Imm gran pct 0.5 Lymphocyte pct 23.9 Monocyte pct 7.2 Eosinophil pct 0.2 Basophil pct 0.4 LIPASE Lipase 23 EGFR eGFR 99 D-DIMER, QUANTITATIVE CRP (ACUTE PHASE) PRO B-TYPE NATRIURETIC PEPTIDE CT Abdomen Pelvis W Contrast (Results Pending) CT Chest PE (CTA) W Contrast (Results Pending) BP 148/83 Pulse 108 Temp 36.7 ??C (98 ??F) (Temporal) Resp 16 Ht 162.6 cm (5' 4 ) Wt 81.6kg (180 lb) SpO2 98% BMI 30.90 kg/m?? MDM ED Course as of Jan 11 2104 Time: 01/10 1905 Comment: Bladder scan shows 65 mL's of urine in bladder. 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 Needs ruling out of carcinoma. By: Nargis Loza Time: 01/10 2025 Comment: Rechecked pt. Informed her of her lab and imaging results. Informed pt that she will likely be transferred to [facility]. By: Nargis Loza Time: 01/10 2031 Comment: Spoke with [facility] to arrange pt transfer. By: Nargis Loza Time: 01/10 2039 Comment: Pt states she gets intense nausea with even fentanyl. By: Soy Mckee MD Time: 01/10 2054 Comment: Discussed pt with Dr. Kwon at [facility], who states to start pt on heparin. By: Nargis Loza Time: 01/10 2103 Comment: Spoke with Dr. Sandra ED at [facility], who accepts pt for transfer. By: Nargis Loza Final diagnoses: None This note is prepared by Nargis Loza, acting as a scribe for Soy cMkee MD. I electronically signed this note at 5:59 PM on 01/10/2021. I, Soy Mckee MD, have personally performed the services described in the documentation, reviewed the documentation, as recorded by the scribe in my presence, and it accurately and completelyrecords my words and actions. Soy Mckee MD 01/11/21 1024 * Katy Orozco RN - 01/10/2021 1:54 PM CDT Pt to ED with c/o left sided abdominal pain starting a few hours ago. Denies history of similar episodes in the past. Denies N/V/D or constipation. Pt states starting yesterday she has no urge to urinate. States she has just been going to the bathroom because she thinks she should. Denies incontinence. Reports recovering from Covid 3 weeks ago. documented in this encounter Plan of Treatment Scheduled Procedures Name Priority Associated Diagnoses Date/Ti me ESOPHAGOGASTRODUODENOSCOPY Nausea Colon cancer screening COLONOSCOPY Nausea Colon cancer screening documented as of this encounter Procedures Procedure Name Priority Date/Time Associated Diagnosis Comments ECG 12-LEAD Routine 01/10/2021 8:[address] CHEST PE ABDOMEN PELVIS W CONTRAST ED 01/10/2021 7:44 PM CDT BLOOD CULTURE STAT 01/10/2021 6:46 PM CDT PRO B-TYPE NATRIURETIC PEPTIDE STAT 01/10/2021 6:45 PM CDT BLOOD CULTURE STAT 01/10/2021 6:45 PM CDT APTT STAT 01/10/2021 6:45 PM CDT PROTIME-INR STAT 01/10/2021 6:45 PM CDT D-DIMER, QUANTITATIVE STAT 01/10/2021 6:45 PM CDT CBC WITHOUT DIFFERENTIAL STAT 01/10/2021 6:45 PM CDT CRP (ACUTE PHASE) STAT 01/10/2021 6:4 5 PM CDT [place] CRITICAL CARE ILL/INJURED PATIENT INIT 30-74 MIN Routine 01/10/2021 5:59 PM CDT EGFR STAT 01/10/2021 2:58 PM CDT DIFFERENTIAL AUTO STAT 01/10/2021 2:5 8 PM CDT CBC WITH AUTO DIFFERENTIAL STAT 01/10/2021 2:58 PM CDT LIPASE STAT 01/10/2021 2:58 PM CDT COMPREHENSIVE METABOLIC PANEL STAT 01/10/2021 2:58 PM CDT URINALYSIS AND REFLEX TO MICROSCOPIC AND CULTURE STAT 01/10/2021 2:14 PM CDT URINALYSIS, MICROSCOPIC ONLY STAT 01/10/2021 2:14 PM CDT documented in this encounter Results * ECG 12 lead (01/10/2021 8:35 PM CDT) 01/10/2021 8:35 PM CDT Narrative [facility] - 01/14/2021 11:56 AM CDT Vent Rate: 127 bpm RR Interval: 470 msec IL Interval: 0 msec QRS Duration: 162 msec QT Interval: 339 msec QTC Interval: 414 msec P-R-T [place]: 0 - 7 - 146 degrees UNCERTAIN REGULAR RHYTHM, probable sinus tachycardia LEFT BUNDLE BRANCH BLOCK ??[120+ ms QRS DURATION, 80+ ms Q/S IN V1/V2, 85+ ms R IN I/aVL/V5/V6] No change from prior EKG Electronically Signed By: Robin Godinez MD us Soy Mckee MD ECG ORDERABLES Final Resul t [facility] * CT Chest PE (CTA) Abdomen Pelvis W Contrast (01/10/2021 7:44 PM CDT) Anatomical Region Laterality Modality Body N/A Computed Tomogra phy 01/10/2021 7:57 PM CDT Narrative 01/10/2021 8:18 PM CDT EXAM DESCRIPTION: ?? CT CHEST PE (CTA) ABDOMEN PELVIS W CONTRAST REASON FOR STUDY: ?? PE suspected, low pretest prob ??presents to the ED c/o worsening stabbing LUQ pain for approximately 6 hours. Pt states pain radiates up to her ribs and to her back. She denies SOB, chest pain, N/V/D, and constipation. She does state that starting yesterday she has no urge to urinate ?? and that she cannot feel her bladder. She reports dark urine ?a h/o Hodgkin lymphoma, CHF, cardiomyopathy, HTN, HLD, and GERD ?? TECHNIQUE: ??CT angiogram of the chest with routine abdomen and pelvis performed with intravenous and ??without oral contrast using helical scanning technique with dynamic intravenous contrast injection. Reconstructed coronal and sagittal MPR images reviewed. All images stored on PACS. ?3D MIP images of the chest rendered on scanning unit and reviewed at time of interpretation. Automated exposure control was used as a dose optimization technique for this examination. CONTRAST TYPE/DOSE: ?? 100mL of IOVERSOL 350 MG IODINE/ML INTRAVENOUS SYRINGE injected via ??intravenous COMPARISON: ?? CT angiogram chest 05/21/2020 FINDINGS: CHEST CHEST VASCULATURE: ??Focal dissection flap of the proximal aspect of the descending thoracic aorta reference axial images 39 through 43. ??There is some adherent mural thrombus on the flat. ??The dissection does not involve the ascending thoracic aorta or great vessels. ??No pulmonary embolism. LUNGS: ??Bilateral medial upper lobe pulmonary scarring is unchanged. Development of the 1.3 cm ground-glass opacity right upper lobe image 37. ?? Vague bilateral lower lobe ground-glass opacities are new as well. PLEURA: ??No effusion. No pneumothorax. MEDIASTINUM/ANA: ??No identified masses or abnormal nodes. HEART: ??Heart size is normal with no pericardial effusion. AXILLA: ??No adenopathy. CHEST WALL: ??No masses. ??No subcutaneous air. HARDWARE/LINES/TUBES: ??None. MUSCULOSKELETAL CHEST: ??No significant abnormality. ABDOMEN/PELVIS LIVER: ??Mild diffuse hepatic steatosis. GALLBLADDER: ??Surgically removed. BILE DUCTS: ??No intrahepatic or extrahepatic ductal dilatation. SPLEEN: ??There is a bulbous configuration of the anterior spleen which is unchanged, measuring up to 7.8 x 4.4 cm. ??There is an associated splenic infarct as well. PANCREAS: ??No identified cystic or solid masses. No significant calcifications. No adjacent inflammation or peripancreatic fluid collections. Pancreatic duct not dilated. ADRENALS: ??Normal. KIDNEYS/URINARY TRACT: ??No identified significant cystic or solid masses. No visualized stones. No hydronephrosis or hydroureter. Symmetric enhancement. ?? Urinary bladder is unremarkable. GI: ??No dilated bowel loops. No obvious wall thickening. ??Normal appendix. ??No significant diverticular disease. PERITONEUM: ??No ascites or free air. RETROPERITONEUM: ??No mass or adenopathy. REPRODUCTIVE: ??Anteverted uterus has an abnormal appearance with endometrial thickening, it measures 1.5 cm in thickness. ??There is endometrial enhancement as well. VASCULATURE ABDOMEN: ??No abdominal aortic aneurysm. MUSCULOSKELETAL ABDOMEN PELVIS: ??No acute finding. OTHER: ??No significant abnormality. IMPRESSION: ?? Chest: 1. 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 2. ??Mild scattered round ground-glass opacities in the mid to lower lung smart, likely related to COVID-19. 3. ??No pulmonary embolism Abdomen pelvis: 4. ??Splenic infarct and bulbous configuration-mass of the anterior spleen which is similar to prior CT. 5. ??Hepatic steatosis 6. ??Endometrial thickening and enhancement which could reflect infection and or neoplasm. ??Recommend nonemergent follow-up with gynecology and pelvic ultrasound. Critical Result: As above The critical information above was relayed directly by me by telephone to Dr. Ana Luisa Mckee on 01/10/2021 at 8:16 pm Central Time. THIS IS AN ELECTRONICALLY VERIFIED FINAL REPORT 01/10/2021 8:18 PM - Electronically signed by Yahaira Lopez M.D. : D: ??01/10/2021 8:18 PM T: ??01/10/2021 8:18 PM Report ID: [id number] Reading Location: ??[id number] Procedure Note Yahaira Lopez MD - 01/10/2021 EXAM DESCRIPTION: CT CHEST PE (CTA) ABDOMEN PELVIS W CONTRAST REASON FOR STUDY: PE suspected, low pretest prob presents to the ED c/o worsening stabbing LUQ pain for approximately 6 hours. Pt states painradiates up to her ribs and to her back. She denies SOB, chest pain, N/V/D, and constipation. She does state that starting yesterday she has no urge to urinate and that she cannot feel her bladder. She reports dark urinea h/o Hodgkin lymphoma, CHF, cardiomyopathy, HTN, HLD, and GERD TECHNIQUE: CT angiogram of the chest with routine abdomen and pelvis performed with intravenous and without oral contrast using helicalscanning technique with dynamic intravenous contrast injection. Reconstructedcoronal and sagittal MPR images reviewed. All images stored on PACS. 3D MIPimages of the chest rendered on scanning unit and reviewed at time ofinterpretation. Automated exposure control was used as a dose optimization technique forthis examination. CONTRAST TYPE/DOSE: 100mL of IOVERSOL 350 MG IODINE/ML INTRAVENOUSSYRINGE injected via intravenous COMPARISON: CT angiogram chest 05/21/2020 FINDINGS: CHEST CHEST VASCULATURE: Focal dissection flap of the proximal aspect of the descending thoracic aorta reference axial images 39 through 43. There issome adherent mural thrombus on the flat. The dissection does not involve the ascending thoracic aorta or great vessels. No pulmonary embolism. LUNGS: Bilateral medial upper lobe pulmonary scarring is unchanged. Development of the 1.3 cm ground-glass opacity right upper lobe image 37. Vague bilateral lower lobe ground-glass opacities are new as well. PLEURA: No effusion. No pneumothorax. MEDIASTINUM/ANA: No identified masses or abnormal nodes. HEART: Heart size is normal with no pericardial effusion. AXILLA: No adenopathy. CHEST WALL: No masses. No subcutaneous air. HARDWARE/LINES/TUBES: None. MUSCULOSKELETAL CHEST: No significant abnormality. ABDOMEN/PELVIS LIVER: Mild diffuse hepatic steatosis. GALLBLADDER: Surgically removed. BILE DUCTS: No intrahepatic or extrahepatic ductal dilatation. SPLEEN: There is a bulbous configuration of the anterior spleen which is unchanged, measuring up to 7.8 x 4.4 cm. There is an associated splenic infarct as well. PANCREAS: No identified cystic or solid masses. No significant calcifications. No adjacent inflammation or peripancreatic fluidcollections. Pancreatic duct not dilated. ADRENALS: Normal. KIDNEYS/URINARY TRACT: No identified significant cystic or solid masses.No visualized stones. No hydronephrosis or hydroureter. Symmetricenhancement. Urinary bladder is unremarkable. GI: No dilated bowel loops. No obvious wall thickening. Normal appendix.No significant diverticular disease. PERITONEUM: No ascites or free air. RETROPERITONEUM: No mass or adenopathy. REPRODUCTIVE: Anteverted uterus has an abnormal appearance withendometrial thickening, it measures 1.5 cm in thickness. There is endometrialenhancement as well. VASCULATURE ABDOMEN: No abdominal aortic aneurysm. MUSCULOSKELETAL ABDOMEN PELVIS: No acute finding. OTHER: No significant abnormality. IMPRESSION: Chest: 1. Focal dissection of the proximal aspect of the descending thoracicaorta with mural thrombus on the dissection flap putting patient at risk forembolic phenomenon. 2. Mild scattered round ground-glass opacities in the mid to lower lung smart, likely related to COVID-19. 3. No pulmonary embolism Abdomen pelvis: 4. Splenic infarct and bulbous configuration-mass of the anterior spleen which is similar to prior CT. 5. Hepatic steatosis 6. Endometrial thickening and enhancement which could reflect infectionand or neoplasm. Recommend nonemergent follow-up with gynecology and pelvic ultrasound. Critical Result: As above The critical information above was relayed directly by me by telephone toDr. Mckee on 01/10/2021 at 8:16 pm Central Time. THIS IS AN ELECTRONICALLY VERIFIED FINAL REPORT 01/10/2021 8:18 PM - Electronically signed by Yahaira Lopez M.D. : Report ID: [id number] Reading Location: [place] [address] Soy Mckee MD IM CT PROCEDURES Final Res ult * Blood culture Blood (01/10/2021 6:46 PM CDT) Report Final Report: No growth KEKE OLIVER ([place]LEY) Comment:Testing performed by : [facility] [address] [facility], [place]., [address] Blood 01/10/2021 6:46 PM CDT 01/10/2021 10:58 PM CDT Narrative KEKE OLIVER ([place]) - 01/15/2021 7:01 AM CDT 1. ?Blood cultures are incubated for 4 days on a continuously monitored blood culture system. The first report of a negative culture is issued within 24 hours of receipt of the specimen in the laboratory. 2. ?Positive culture results are reported as soon as they are detected. 3. ?The most important factor for detection of microbes in the setting of bloodstream infection is the volume of blood submitted for culture. Failure to collect an optimal blood volume can result in false negative blood cultures. For pediatric patients, the recommended blood volume to collect is 1 mL of blood per year of patient age (up to 20 mL) per blood culture set. For adult patients, 20 mL of blood, divided equally between aerobic and anaerobic blood culture bottles, is recommended for each blood culture set. 4. ?For blood cultures with Gram-positive cocci, a rapid molecular test for organism identification may be performed using the GradeBeamigene Gram-Positive Blood Culture Assay. This assay detects microbial DNA in positive blood culture broth via hybridization of target DNA to capture oligonucleotides on a microarray. This assay has been cleared by the [place] Food and Drug Administration and its performance characteristics have been verified by the [facility]. 5. ?For questions about this culture, contact the Microbiology Laboratory at [phone]. Interpretive data was last revised on 2019. us Soy Mckee MD LAB MICROBIOLOGY - GENERAL ORDERABLES Final Result KEKE OLIVER ([place]) 1 [facility] Department [place] [address] * aPTT (01/10/2021 6:45 PM CDT) Pathologist [facility] aPTT 31 27 - 37 sec KEKE OLIVER ([place]) Comment: Interpretive data Heparin therapeutic range: 60-94 seconds Range based on correlation with therapeutic heparin activity range of 0.3-0.7 units/ml. Current interpretive data was last revised on 2019. Blood 01/10/2021 6:45 PM CDT 01/10/2021 9:15 PM CDT Narrative KEKE OLIVER ([place]) - 01/10/2021 9:22 PM CDT Unless preformed in the last 48 hours. Draw prior to heparin administration. Soy Mckee MD LAB BLOOD ORDERABLES Final Result KEKE OLIVER ([place]) 1 [facility] [place] [address] * Protime-INR (01/10/2021 6:45 PM CDT) PT 13.6 9.5 - 13.6 sec KEKE OLIVER ([place]) INR 1.2 0.9 - 1.2 KEKE OLIVER ([place]) Comment: Interpretive data Oral anticoagulant therapeutic ranges: Venous thromboembolism prophylaxis or treatment: 2.0-3.0 CARDIOLOGY Standard range: 2.0-3.0 High-intensity range: 2.5-3.5 Refer to indication-specific guidelines for appropriate target ranges for prosthetic heart valve replacement. Current interpretive data was last revised on 2019. Blood 01/10/2021 6:45 PM CDT 01/10/2021 9:15 PM CDT Narrative KEKE OLIVER ([place]) - 01/10/2021 9:20 PM CDT Unless preformed in the last 48 hours. Draw prior to heparin administration. Soy Mckee MD LAB BLOOD ORDERABLES Final Result KEKE OLIVER ([place]) 1 [facility] [place] [address] * (ABNORMAL) CBC without differential (01/10/2021 6:45 PM CDT) WBC 13.5(H) 3.8 - 9.9 K/cumm KEKE OLIVER ([place]) Hgb 11.6(L) 11.9 - 15.5 g/dL [facility] ([place]) Hct 35.3(L) 35.6 - 45.5 % [facility] ([place]) Plt 438(H) 150 - 400 K/cumm [facility] ([place]) MPV 9.3 9.1 - 12.3 fL [facility] ([place]) RBC 4.08 3.90 - 5.20 M/cumm [facility] ([place]) MCV 86.5 81.3 - 96.4 fL [facility] ([place]) MCH 28.4 27.1 - 33.3 pg [facility] ([place]) MCHC 32.9 32.3 - 35.7 g/dL [facility] ([place]) RDW CV 13.2 11.1 - 14.9 % [facility] ([place]) RDW SD 40.8 35.7 - 48.1 fL [facility] ([place]) NRBC abs 0.00 0.00 - 0.01 K/cumm [facility] ([place]) Blood 01/10/2021 6:45 PM CDT 01/10/2021 9:13 PM CDT Narrative [facility] ([place]) - 01/10/2021 9:15 PM CDT Unless preformed in the last 48 hours. Draw prior to heparin administration. us Soy Mckee MD LAB BLOOD ORDERABLES Final Result [facility] ([place]) 1 [facility] Department [place] [address] * Blood culture Blood (01/10/2021 6:45 PM CDT) Report Final Report: No growth [facility] ([place]) Comment:Testing performed by : [facility], [address] [facility], [place]., [address] Blood 01/10/2021 6:45 PM CDT 01/10/2021 10:58 PM CDT Narrative [facility] ([place]) - 01/15/2021 7:01 AM CDT 1. ?Blood cultures are incubated for 4 days on a continuously monitored blood culture system. The first report of a negative culture is issued within 24 hours of receipt of the specimen in the laboratory. 2. ?Positive culture results are reported as soon as they are detected. 3. ?The most important factor for detection of microbes in the setting of bloodstream infection is the volume of blood submitted for culture. Failure to collect an optimal blood volume can result in false negative blood cultures. For pediatric patients, the recommended blood volume to collect is 1 mL of blood per year of patient age (up to 20 mL) per blood culture set. For adult patients, 20 mL of blood, divided equally between aerobic and anaerobic blood culture bottles, is recommended for each blood culture set. 4. ?For blood cultures with Gram-positive cocci, a rapid molecular test for organism identification may be performed using the GradeBeamigene Gram-Positive Blood Culture Assay. This assay detects microbial DNA in positive blood culture broth via hybridization of target DNA to capture oligonucleotides on a microarray. This assay has been cleared by the [place] Food and Drug Administration and its performance characteristics have been verified by the [facility]. 5. ?For questions about this culture, contact the Microbiology Laboratory at [phone]. Interpretive data was last revised on 2019. Soy Mckee MD LAB MICROBIOLOGY - GENERAL ORDERABLES Final Result KEKE OLIVER ([place]) 1 [facility] Department [place] [address] * Pro B-type natriuretic peptide (01/10/2021 6:45 PM CDT) NT-proBNP 213 <=300 pg/mL KEKE OLIVER ([place]) Comment: Interpretive Comments: A. Dyspnea in Acute Care Setting All Ages: ?< 300 pg/ml, acute heart failure unlikely. < 50 yrs: ?300 - 450 pg/ml, further investigation warranted. ? > 450 pg/ml, acute heart failure likely. 50 - 74 yrs: ? 300 - 900 pg/ml, further investigation warranted. ? > 900 pg/ml, acute heart failure likely . > or = 75 yrs: ? 450 - 1800 pg/ml, further investigation warranted. ? > 1800 pg/ml, acute heart failure likely. B. Non-acute Setting < 75 yrs ? < 125 pg/ml, rules out heart failure. ? > or = 125 pg/ml, further investigation warranted. > or = 75 yrs ?< 450 pg/ml, rules out heart failure. ? > or = 450 pg/ml, further investigation warranted. - Knowledge of each individual patient's NT-proBNP range may be more useful than using similar cut-points for every patient. Please note that marked elevations in NT-proBNP levels may be observed in state other than Left Ventricular Congestive Failure, including: acute coronary syndromes, right heart strain/failure (including pulmonary embolism and cor pulmonale), critical illness, renal failure, as well as advanced age. - References: 1. Giovanni MARTINO et.al. Eur Heart J. 2006:27:330-337. 2. Andre RW, Kaushal BERRY. J. AM Hector Cardiol: Cardiovasc Imag. 2009;2: 216- 225. Interpretive Data Last Revised Date: 2017. Blood 01/10/2021 6:45 PM CDT 01/10/2021 6:54 PM CDT us Soy Mckee MD LAB BLOOD ORDERABLES Final Result [facility] ([place]) 1 [facility] Department [place] [address] * (ABNORMAL) CRP (acute phase) (01/10/2021 6:45 PM CDT) CRP 19.0(H) <=10.0 mg/L KEKE [place] ([place]) Blood 01/10/2021 6:45 PM CDT 01/10/2021 6:59 PM CDT Soy Mckee MD LAB BLOOD ORDERABLES Final Result Performing Organization Address City/[facility]/ZIP Co de Phone Number [facility] ([place]) 1 [facility] [place] [address] * (ABNORMAL) D-dimer, quantitative (01/10/2021 6:45 PM CDT) D-Dimer 5,100(H) <=499 ng/mL FEU KEKE OLIVER ([place]) Comment: Reviewed 01/10/2021 21:14:49 CDT [id number] Interpretive data FDA approved the D-dimer, in conjunction with a low or moderate pretest probability score, to exclude venous thromboembolic events (VTE) (PE and DVT) in outpatients when the D-dimer result is < 500 ng/ml FEU. ?? Evidence supports using an age-adjusted D-dimer cut-off for outpatients older than 50 (age x 10) to improve specificity without sacrificing sensitivity. Example: age 68, VTE cut-off 680 ng/ml FEU. References; Schouten HT et al. Brit Med J. 2013;346:f2492. Stefany et al. Annals Int Med. 2015;163:701-11. Current interpretive data was last revised on 2019. Blood 01/10/2021 6:45 PM CDT 01/10/2021 6:54 PM CDT us Soy Mckee MD LAB BLOOD ORDERABLES Final Result KEKE OLIVER ([place]) 1 [facility] [place] [address] * [place] CRITICAL CARE ILL/INJURED PATIENT INIT 30-74 MIN (01/10/2021 5:59 PM CDT) Narrative Soy Mckee MD - 01/10/2021 5:59 PM CDT Soy Mckee MD ? 01/11/2021 10:24 AM Critical Care Performed by: Soy Mckee MD Authorized by: Soy Mckee MD Critical care provider statement: As reflected in the history, physical exam, orders, notes, and/or MDM, I was personally present while the patient was critically ill and provided critical care services for approximately 40 minutes, excluding time involved in separately billable procedures. ??Critical care was necessary to treat or prevent imminent or life-threatening deterioration of the following condition(s): ?? Acute blood pressure management. ??Critical care was time spent by me providing the following: ? serial bedside patient exams, interpretation of bedside monitors, imaging, and arterial/venous lab draws, continuous pulse oximetry and continuous telemetry ?? IV heparin. ?? I provided emergent necessary critical care medicine services to this patient. I ordered and reviewed test results and/or imaging studies. I spent time discussing the management of this critically ill patient with consultants and the medical staff. I spent time discussing the management and therapeutic options for this critically ill patient with the patient themselves or with the appropriate designated surrogate decision-maker. I spent time documenting in the medical record. us Soy Mckee MD IN CLINIC/BEDSIDE ORDERABLE S Final Result * eGFR (01/10/2021 2:58 PM CDT) [facility] eGFR 99 mL/min/1.7 3 m2 [facility] ([place]) Comment: Interpretive Data Reference Interval Normal ?>/= 90 mL/min/1.73m2 Mildly decreased* ? 60 - 89 mL/min/1.73m2 Mildly to moderately decreased ?45 - 59 mL/min/1.73m2 Moderately to severely decreased ??30 - 44 mL/min/1.73m2 Severely decreased ?15 - 29 mL/min/1.73m2 Kidney Failure ?< 15 ??mL/min/1.73m2 *Relative to young adult level Estimated glomerular filtration rate is determined by the CKD-EPI equation recommended by the National Kidney Foundation (KDIGO 2012 Clinical Practice Guideline for the Evaluation and Management of Chronic Kidney Disease. Kidney Intnl Suppl Mar 2012;3:1). The CKD-EPI equation should not be used for patients with unstable renal function and has not been validated in children and those over 70. Current interpretive data was last reviewed 2020 Blood 01/10/2021 2:58 PM CDT 01/10/2021 3:18 PM CDT us Oscar Chandler MD LAB BLOOD ORDERABLE S Final Result [facility] ([place]) 1 [facility] Department [place] [address] * (ABNORMAL) Differential, auto (01/10/2021 2:58 PM CDT) Neutrophil abs 8.5(H) 1.7 - 6.5 K/cumm [facility] ([place]) Imm gran abs 0.1 0.0 - 0.1 K/cumm [facility] ([place]) Lymphocyte abs 3.0 0.8 - 3.3 K/cumm [facility] ([place]) Monocyte abs 0.9(H) 0.2 - 0.8 K/cumm [facility] ([place]) Eosinophil abs 0.0 0.0 - 0.5 K/cumm [facility] ([place]) Basophil abs 0.1 0.0 - 0.1 K/cumm [facility] ([place]) Neutrophil pct 67.8 % [facility] ([place]) Comment: Interpretive Data Percent cell count reference ranges are not reported, since discordance with absolute values may lead to misinterpretation of CBC data. Current Interpretive Data was last revised on 2017. Imm gran pct 0.5 % [facility] ([place]) Comment: Interpretive Data Percent cell count reference ranges are not reported, since discordance with absolute values may lead to misinterpretation of CBC data. Current Interpretive Data was last revised on 2017. Lymphocyte pct 23.9 % [facility] ([place]) Comment: Interpretive Data Percent cell count reference ranges are not reported, since discordance with absolute values may lead to misinterpretation of CBC data. Current Interpretive Data was last revised on 2017. Monocyte pct 7.2 % [facility] ([place]) Comment: Interpretive Data Percent cell count reference ranges are not reported, since discordance with absolute values may lead to misinterpretation of CBC data. Current Interpretive Data was last revised on 2017. Eosinophil pct 0.2 % [facility] ([place]) Comment: Interpretive Data Percent cell count reference ranges are not reported, since discordance with absolute values may lead to misinterpretation of CBC data. Current Interpretive Data was last revised on 2017. Basophil pct 0.4 % [facility] ([place]) Comment: Interpretive Data Percent cell count reference ranges are not reported, since discordance with absolute values may lead to misinterpretation of CBC data. Current Interpretive Data was last revised on 2017. Blood 01/10/2021 2:58 PM CDT 01/10/2021 3:18 PM CDT us Oscar Chandler MD LAB BLOOD ORDERABLE S Final Result [facility] ([place]) 1 [facility] [place] [address] * Lipase (01/10/2021 2:58 PM CDT) Lipase 23 10 - 99 Units/L [facility] ([place]) Blood 01/10/2021 2:58 PM CDT 01/10/2021 3:18 PM CDT us Oscar Chandler MD LAB BLOOD ORDERABLE S Final Result Performing Organization Address City/[facility]/ZIP Co de Phone Number [facility] ([place] 1 [facility] Department [place] [address] * (ABNORMAL) CBC with auto differential (01/10/2021 2:58 PM CDT) WBC 12.6(H) 3.8 - 9.9 K/cumm [facility] ([place]) Hgb 12.5 11.9 - 15.5 g/dL [facility] ([place]) Hct 37.7 35.6 - 45.5 % [facility] ([place]) Plt 466(H) 150 - 400 K/cumm [facility] ([place]) MPV 8.8(L) 9.1 - 12.3 fL [facility] ([place]) RBC 4.41 3.90 - 5.20 M/cumm [facility] ([place]) MCV 85.5 81.3 - 96.4 fL [facility] ([place]) MCH 28.3 27.1 - 33.3 pg [facility] ([place]) MCHC 33.2 32.3 - 35.7 g/dL [facility] ([place]) RDW CV 13.0 11.1 - 14.9 % [facility] ([place]) RDW SD 40.4 35.7 - 48.1 fL [facility] ([place]) NRBC abs 0.00 0.00 - 0.01 K/cumm [facility] ([place]) Blood 01/10/2021 2:58 PM CDT 01/10/2021 3:18 PM CDT us Oscar Chandler MD LAB BLOOD ORDERABLE S Final Result [facility] ([place]) 1 [facility] Department [place] [address] * (ABNORMAL) Comprehensive metabolic panel (01/10/2021 2:58 PM CDT) Sodium 140 135 - 145 mmol/L [facility] ([place]) Potassium, pl 3.2(L) 3.3 - 4.9 mmol/L [facility] ([place]) Chloride 106 97 - 110 mmol/L [facility] ([place]) CO2 21(L) 22 - 32 mmol/L [facility] ([place]) Anion gap 13 2 - 15 mmol/L [facility] ([place]) BUN 8 8 - 25 mg/dL [facility] ([place]) Creatinine 0.66 0.60 - 1.10 mg/dL [facility] ([place]) Glucose 133 70 - 199 mg/dL [facility] ([place]) Comment: Interpretive Data Fasting glucose >/= 126 mg/dl is diagnostic for diabetes. ?? Fasting is defined as no caloric intake for at least 8 hours. Fasting glucose between 100 mg/dl to 125 mg/dl is diagnostic of prediabetes. In a patient with classic symptoms of hyperglycemia or hyperglycemic crisis, a random glucose >/= 200 mg/dl is diagnostic for diabetes. In the absence of unequivocal hyperglycemia, results should be confirmed by repeat testing. The classification and Diagnosis of Diabetes Diabetes Care 2017;40 (Suppl. 1):S11. Current interpretive data was last revised 2017. Calcium 9.3 8.5 - 10.3 mg/dL [facility] ([place]) Bilirubin, total 0.3 0.1 - 1.2 mg/dL [facility] ([place]) Protein, pl 7.3 6.5 - 8.5 g/dL [facility] ([place]) Albumin 3.8 3.5 - 5.0 g/dL [facility] ([place]) Alk phos 80 40 - 130 Units/L [facility] ([place]) ALT 26 7 - 45 Units/L [facility] ([place]) AST 14 10 - 45 Units/L [facility] ([place]) Blood 01/10/2021 2:58 PM CDT 01/10/2021 3:18 PM CDT us Oscar Chandler MD LAB BLOOD ORDERABLE S Final Result [facility] ([place]) 1 [facility] Department [place] [address] * (ABNORMAL) Urinalysis, microscopic only (01/10/2021 2:14 PM CDT) WBC, ur 6-10(A) 0 - 5 /HPF [facility] ([place]) RBC, ur 3-5(A) 0 - 2 /HPF [facility] ([place]) Epithelial cells, squamous, ur 1-5 0 - 5 /HPF [facility] ([place]) Mucous, ur Present(A) [facility] ([place]) Hyaline casts, ur 11-20(A) 0 - 10 /LPF [facility] ([place]) Culture Reflex Comment Reflex conditions for urine culture (WBC >10) not met. [facility] ([place]) Urine 01/10/2021 2:14 PM CDT 01/10/2021 2:31 PM CDT us Oscar Chandler MD LAB URINE ORDERABLE S Final Result [facility] ([place]) 1 [facility] Department [place] [address] * (ABNORMAL) Urinalysis reflex to microscopic and culture Urine (01/10/2021 2:14 PM CDT) Color, ur Yellow Yellow [facility] ([place]) Clarity, ur Turbid(A) Clear [facility] ([place]) Specific gravity, ur 1.029 1.003 - 1.030 [facility] ([place]) pH, urine 6.0 [facility] ([place]) Protein, ur ql 1+(A) Negative [facility] ([place]) Glucose, ur ql 2+(A) Negative [facility] ([place]) Ketones, ur Negative Negative [facility] ([place]) Bilirubin, ur Negative Negative [facility] ([place]) Blood, ur Trace(A) Negative [facility] ([place]) Urobilinogen, ur <2.0 <2.0 mg/dL [facility] ([place]) Nitrite, ur Negative Negative [facility] ([place]) Leukocyte esterase, ur Negative Negative [facility] ([place]) UA reflex comment Reflex to microscopic UA will be performed. [facility] ([place]) Urine 01/10/2021 2:14 PM CDT 01/10/2021 2:31 PM CDT Narrative [facility] ([place]) - 01/10/2021 2:35 PM CDT ?? Urine pH is affected by diet, medications, systemic acid-base disturbances, and renal tubular function. ??pH may affect urinary stone formation. ??For example, urine pH below 6.0 may help reduce the tendency for calcium phosphate stones and pH greater than 6.0 may reduce the tendency for uric acid stone formation. Source: [employer]. 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 documented in this encounter Administered Medications Inactive Administered Medications - up to 3 most recent administrations Medication Order MAR Action Action Date Dose Rate Site acetaminophen (TYLENOL) tablet 1,000 mg 1,000 mg, oral, Once, On Sarah 01/10/21 at 1758, For 1 dose Given 01/10/2021 5:58 PM CDT 1,000 mg enalaprilat (VASOTEC) injection 1.25 mg 1.25 mg, intravenous, Administer over 5 Minutes, Once, On Sarah 01/10/21 at 2046, For 1 dose Given 01/10/2021 8:51 PM CDT 1.25 mg fentaNYL (SUBLIMAZE) preservative free injection 25 mcg 25 mcg, intravenous, Once, On Sarah 01/10/21 at 2102, For 1 dose Given 01/10/2021 9:26 PM CDT 25 mcg heparin 25,000 Units in sodium chloride 0.9% 250 mL (100 Units/mL) infusion 18 Units/kg/hr ? 81.6 kg (14.688 mL/hr, rounded to 14.69 mL/hr), intravenous, Titrated, Starting on Sarah 01/10/21 at 2101, WEIGHT-BASED HEPARIN INFUSION, Indications: Venous ThrombosisIndications :Venous Thrombosis New Bag 01/10/2021 9:27 PM CDT 18 Units/kg/hr 14.69 mL/hr heparin 5,000 unit/mL injection 6,500 Units 6,500 Units (rounded from 6,528 Units = 80 Units/kg ? 81.6 kg), intravenous, Once, On Sarah 01/10/21 at 2101, For 1 dose, Initial bolus prior to starting heparin infusion. Do not adjust initial bolus based on patient PTT., Indications: Venous ThrombosisIndications :Venous Thrombosis Given 01/10/2021 9:27 PM CDT 6,500 Units ioversoL (OPTIRAY 350) syringe syringe 100 mL 100 mL, intravenous, Once in imaging, contrast, Starting on Sarah 01/10/21 at 1945, For 1 dose Contrast Given 01/10/2021 7:48 PM CDT 100 mL LORazepam (ATIVAN) injection 1 mg 1 mg, intravenous, Once, On Sarah 01/10/21 at 2025, For 1 dose, For IV administration, dilute with equal volume of 0.9% sodium chloride. Do not exceed a rate of 2 mg/minute Given 01/10/2021 8:30 PM CDT 1 mg metoclopramide (REGLAN) injection 10 mg 10 mg, intravenous, Administer over 1 Minutes, Once, On Sarah 01/10/21 at 2026, For 1 dose Given 01/10/2021 8:51 PM CDT 10 mg metoprolol (LOPRESSOR) injection 5 mg 5 mg, intravenous, Administer over 1 Minutes, Once, On Sarah 01/10/21 at 2025, For 1 dose Given 01/10/2021 8:28 PM CDT 5 mg metoprolol (LOPRESSOR) injection 5 mg 5 mg, intravenous, Administer over 1 Minutes, Once, On Sarah 01/10/21 at 2026, For 1 dose Given 01/10/2021 8:50 PM CDT 5 mg nitroglycerin (NITRO-BID) 2 % ointment 1 inch 1 inch, topical, Administer over 5 Hours, Once, On Sarah 01/10/21 at 204, For 1 dose, Apply to chest or back with the applicator or dose-measuring paper., Apply to affected area: chest Medication Applied 01/10/2021 8:51 PM CDT 1 inch Chest ondansetron (ZOFRAN) injection 4 mg 4 mg, intravenous, Administer over 2 Minutes, Once, On Sarah 01/10/21 at 2025, For 1 dose Given 01/10/2021 8:28 PM CDT 4 mg documented in this encounter Active and Recently Administered Medications Times are shown in CDT. Scheduled Medication Order 01/08/2021 01/09/2021 01/10/2021 acetaminophen (TYLENOL) tablet 1,000 mg (COMPLETED) 1,000 mg, oral, Once, On Sarah 01/10/21 at 1758, For 1 dose 1757 (Given - Provid er: Shiva Eisenberg RN) enalaprilat (VASOTEC) injection 1.25 mg (COMPLETED) 1.25 mg, intravenous, Administer over 5 Minutes, Once, On Sarah 01/10/21 at 2045, For 1 dose 2050 (Given - Provid er: Abi Medel RN) fentaNYL (SUBLIMAZE) preservative free injection 25 mcg (COMPLETED) 25 mcg, intravenous, Once, On Sarah 01/10/21 at 2101, For 1 dose 2125 (Given - Provid er: Elissa Javier RN) heparin 5,000 unit/mL injection 6,500 Units (COMPLETED) 6,500 Units (rounded from 6,528 Units = 80 Units/kg ? 81.6 kg), intravenous, Once, On Sarah 01/10/21 at 2100, For 1 dose, Initial bolus prior to starting heparin infusion. Do not adjust initial bolus based on patient PTT., Indications: Venous Thrombosis 2126 (Given - Provid er: Elissa Javier RN) LORazepam (ATIVAN) injection 1 mg (COMPLETED) 1 mg, intravenous, Once, On Sarah 01/10/21 at 2025, For 1 dose, For IV administration, dilute with equal volume of 0.9% sodium chloride. Do not exceed a rate of 2 mg/minute 2029 (Given - Provid er: Alex [place] RN) metoclopramide (REGLAN) injection 10 mg (COMPLETED) 10 mg, intravenous, Administer over 1 Minutes, Once, On Sarah 01/10/21 at 2026, For 1 dose 2050 (Given - Provid er: Abi Medel RN) metoprolol (LOPRESSOR) injection 5 mg (COMPLETED) 5 mg, intravenous, Administer over 1 Minutes, Once, On Sarah 01/10/21 at 2025, For 1 dose 2027 (Given - Provid er: Alex [place] RN) metoprolol (LOPRESSOR) injection 5 mg (COMPLETED) 5 mg, intravenous, Administer over 1 Minutes, Once, On Sarah 01/10/21 at 2026, For 1 dose 2049 (Given - Provid er: Abi Medel, ESAU) nitroglycerin (NITRO-BID) 2 % ointment 1 inch 1 inch, topical, Administer over 5 Hours, Once, On Sarah 01/10/21 at 2044, For 1 dose, Apply to chest or back with the applicator or dose-measuring paper., Apply to affected area: chest 2050 (Medication Mela lied - Provider: Abi Medel, ESAU) ondansetron (ZOFRAN) injection 4 mg (COMPLETED) 4 mg, intravenous, Administer over 2 Minutes, Once, On Sarah 01/10/21 at 2025, For 1 dose 2027 (Given - Provid er: Alex [place] RN) Continuous Medication Order 01/08/2021 01/09/2021 01/10/2021 heparin 25,000 Units in sodium chloride 0.9% 250 mL (100 Units/mL) infusion 18 Units/kg/hr ? 81.6 kg (14.688 mL/hr, rounded to 14.69 mL/hr), intravenous, Titrated, Starting on Sarah 01/10/21 at 210, WEIGHT-BASED HEPARIN INFUSION, Indications: Venous Thrombosis 2126 (New Bag - Prov ider: Elissa Javier RN)2131 (Continued after Discharge - Provider: Elissa Javier RN) PRN Medication Order 01/08/2021 01/09/2021 01/10/2021 ioversoL (OPTIRAY 350) syringe syringe 100 mL (COMPLETED) 100 mL, intravenous, Once in imaging, contrast, Starting on Sarah 01/10/21 at 1945, For 1 dose 1947 (Contrast Given - Provider: Janeth Todd RT) documented in this encounter Orders Nursing Count Last Ordered Date First Orde red Date BLADDER SCAN 2 01/10/2021 documented in this encounter Additional Health Concerns Infection Onset Date Last Indicated Resolved Time COVID19 12/29/2020 12/29/2020 01/29/2021 3:05 AM 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
--- OUTSIDE RECORDS SUMMARY | 2024-03-18 05:01 | XMS_ITS | Encounter Summary ---
Author Organization [facility] Address [address] [facility] [address] [place] [address] Care Team Providers Care Cabinet And Trim Installer Name Role Phone Newton Mendiola MD Primary Care Provider [phone] Sly Cade MD Unavailable [phone] Encounter Details Date Type Department Care Team (Late st Contact Info) Description 12/17/2020 Orders Only [facility] Medical [facility] ENT Specialists - [facility] [address] [facility] [address] [place] [id number] Sheila So, [address] [facility] [place], [place] [id number] Laryngopharyngeal reflux (LPR) (Primary Dx) Social History Tobacco Use Types Packs/Day Years Used Date Smoking Tobacco: Former Cigarettes 0.5 10 1 990 - 2000 Smokeless Tobacco: Never Alcohol Use Standard Drinks/Week Comments No 0 (1 standard drink = 0.6 oz pur e alcohol) Comments No Sex and Gender Information Value Date Recorded Sex Assigned at Not on file Legal Sex Female 7:55 AM OFFSET LITHOGRAPHIC PRESS SETTER Gender Identity Not on file Sexual Orientation Not on file documented as of this encounter Ordered Prescriptions Prescription Sig Dispense Quantity Refills Last Filled Start Date End Date famotidine (PEPCID) 40 mg tabletIndications: Laryngopharyngeal reflux (LPR) Take 1 tablet (40 mg total) by mouth nightly 90 tablet 3 12/17/2020 documented in this encounter Plan of Treatment Scheduled Procedures Name Priority Associated Diagnoses Date/Ti me ESOPHAGOGASTRODUODENOSCOPY Nausea Colon cancer screening COLONOSCOPY Nausea Colon cancer screening documented as of this encounter Visit Diagnoses Diagnosis Laryngopharyngeal reflux (LPR)- Primary documented in this encounter Care Teams Cabinet And Trim Installer Relationship Specialty Start Date End Date Newton Mendiola MD [address] [address] PCP - General 06/09/16 Sly Cade MD [address] [address] Referring Physician Cardiology 12/07/18 documented as of this encounter
--- OUTSIDE RECORDS SUMMARY | 2024-03-18 05:01 | XMS_ITS | Encounter Summary ---
Author Organization [facility] Address [address] [place] [address] Phone Care Team Providers Care Beveling And Edging Machine Operator Name Role Phone Newton Mendiola MD Primary Care Provider [phone] Sly Cade MD Unavailable Tuyet Weir [facility] Unavailable [phone] Encounter Details Date Type Department Care Team (Late st Contact Info) Description 12/18/2020 Telephone [facility] Cardiology [address] [facility] Medical Office Building [address] [place] [address] Matt Remy MD [address] [place] [address] Social History Tobacco Use Types Packs/Day Years [...] on file Legal Sex Female 7:55 AM PLATE MILL HAND Gender Identity Not on file Sexual Orientation Not on file documented as of this encounter Ordered Prescriptions Prescription Sig Dispense Quantity Refills Last Filled Start Date End Date dapagliflozin (FARXIGA) 10 mg tabletIndications: heart failure with reduced ejection fraction Take 1 tablet (10 mg total) by mouth daily 90 tablet 3 12/21/2020 12/16/2021 documented in this encounter Miscellaneous Notes * Telephone Encounter - Odalis Monroe RN - 01/18/2021 11:33 AM CDT Spoke with pt verbalized understanding. * Telephone Encounter - Cat Vale NP - 01/18/2021 11:22 AM CDT If no swelling and SOB stable then I can just reassess at 02/06 visit, but please have her call if things start to change before then and we can always start a diuretic. THanks! * Telephone Encounter - Odalis Monroe RN - 01/18/2021 10:20 AM CDT Called to check on pt Still having sob but she feels this is from her recent covid infection. No swelling. Does not weight daily. She states she has actually lost 7 lbs that she has kept off, she say's this was due to her covid infection. She had covid Dec 25 and was admitted to and out of quarantine since Thursday. She states she is doing fine on the increased dose of farxiga 10 mg every day. * Telephone Encounter - Odalis Monroe RN - 12/21/2020 12:41 PM CDT Spoke with pt she is doing well on farxiga 5 mg. She is still having some sob. She is agreeable to increasing farxiga to 10mg every day and then we will touch base in 4 wks or so to see if we need tostart torsemide 10 mg Pharmacy notified. * Telephone Encounter - Georgie Mills RN - 12/19/2020 1:34 PM CDT Attempted to call-unable to connect call * Telephone Encounter - Odalis Monroe RN - 12/18/2020 10:28 AM CDT Called pt lmor * Telephone Encounter - Odalis Monroe RN - 12/18/2020 9:56 AM CDT ----- Message from Matt Remy MD sent at 12/17/2020 5:26 PM CDT ----- LVEF is similar but has evidence of increased filling pressures. Can we see how she feels on dapa 5 mg? If she is doing well on this we can increase this to 10 mg. If still having CARTER and orthopnea, would start torsemide 10 mg after 4ish weeks of dapagliflozin 10 mg documented in this encounter Plan of Treatment Scheduled Procedures Name Priority Associated Diagnoses Date/Ti me ESOPHAGOGASTRODUODENOSCOPY Nausea Colon cancer screening COLONOSCOPY Nausea Colon cancer screening documented as of this encounter Visit Diagnoses Not on filedocumented in this encounter Discontinued Medications Medication Sig Discontinue Reason Start Date End Da te dapagliflozin (FARXIGA) 5 mg tabletIndications:heart failure with reduced ejection fraction Take 1 tablet (5 mg total) by mouth daily Reorder 12/04/2020 12/21/2020 documented as of this encounter Additional Health Concerns Infection Onset Date Last Indicated Resolved Time COVID: Suspected 12/29/2020 12/29/2020 12/29/2020 11:09 AM CDT COVID19 12/29/2020 12/29/2020 01/29/2021 3:05 AM PLATE MILL HAND documented as of this encounter Care Teams Beveling And Edging Machine Operator Relationship Specialty Start Date End Date Newton Mendiola MD [address] [address] PCP - General 06/09/16 Sly Cade MD [address] [address] Referring Physician Cardiology 12/07/18 Tuyet Weir, [facility] [address] [facility] ([facility]) Mailstop [phone] [place] [address] SHOP Outpatient Senior Erp Consultant 01/16/21 02/11/21 documented as of this encounter
--- OUTSIDE RECORDS SUMMARY | 2024-03-18 05:01 | XMS_ITS | Encounter Summary ---
Author Organization [facility] Address [address] [address] Care Team Providers Care Welder Plasma Arc Name Role Phone Newton Mendiola MD Primary Care Provider [phone] Sly Cade MD Unavailable [phone] Reason for Visit * Reason Onset Date Comments Covid-19 Home Monitoring 01/01/2021 Enrollm ent call-Green Encounter Details Date Type Department Care Team (Late st Contact Info) Description 01/01/2021 Telephone [facility] Accountable Care Organization [address] [place] [address] Lillian France MA [address] [place] [id number] Covid-19 Home Monitoring (Enrollment call-Green) Social History Tobacco Use Types Packs/Day Years Used Date Smoking Tobacco: Former Cigarettes 0.5 10 1 990 - 2000 Smokeless Tobacco: Never Alcohol Use Standard Drinks/Week Comments No 0 (1 standard drink = 0.6 oz pur e alcohol) Comments No Sex and Gender Information Value Date Recorded Sex Assigned at Not on file Legal Sex Female 7:55 AM REEL AND REWINDER OPERATOR Gender Identity Not on file Sexual Orientation Not on file documented as of this encounter Miscellaneous Notes * Telephone Encounter - Lillian France MA - 01/01/2021 11:36 AM CDT This patient was identified as a candidate for the [facility]/ COVID home monitoring program. The patient was contacted via phone for enrollment in the program. The patient has declined to participate in the automated MyChart Data Governance Consultant Program, but has verbally agreed to the Phone Only Home Monitoring Program, which includes being contacted for a daily phone assessment by a [facility] staff member. The patient was informed that members of the healthcare team will contact them depending on the symptoms that they report. This call could come from a variety of phone numbers depending on which member of the healthcare team is contacting the patient, and the patient should be prepared to answer calls from a variety of phone numbers. If the patient is unable to be reached for 3 days, they will be disenrolled from the program. Patient is aware that we will try and reach them at every available phone number, including HIPAA contacts. After review, the patient declined to participate. The ???COVID19 Home Monitoring?? order was not placed to enroll the patient in the phone only version of the program. documented in this encounter Plan of Treatment Scheduled Procedures Name Priority Associated Diagnoses Date/Ti me ESOPHAGOGASTRODUODENOSCOPY Nausea Colon cancer screening COLONOSCOPY Nausea Colon cancer screening documented as of this encounter Visit Diagnoses Not on filedocumented in this encounter Additional Health Concerns Infection Onset Date Last Indicated Resolved Time COVID19 12/29/2020 12/29/2020 01/29/2021 3:05 AM REEL AND REWINDER OPERATOR documented as of this encounter Care Teams Welder Plasma Arc Relationship Specialty Start Date End Date Newton Mendiola MD [address] [address] PCP - General 06/09/16 Sly Cade MD [address] [address] Referring Physician Cardiology 12/07/18 documented as of this encounter
--- OUTSIDE RECORDS SUMMARY | 2024-03-18 05:01 | XMS_ITS | Encounter Summary ---
Author Organization [facility] Address [facility] [place] [address] Care Team Providers Care Quality Engineering Manager Name Role Phone Newton Mendiola MD Primary Care Provider [phone] Sly Cade MD Unavailable [phone] [facility] Unavailable [phone] Reason for Referral * Consultation (Routine) - Closed Specialty Diagnoses / Procedures Referred By Nino t Referred To Contact Vascular Surgery Diagnoses Dissection of thoracic aorta (HCC) Newton Mendiola MD [address] [address] Phone: tel: fax: Eduardo Kwon MD [address] [place] [address] Phone: tel: fax: Referral ID Status Reason Start Date Expiration Date V isits Requested Visits Authorized [id number] Closed Specialty Services Required 01/17/2021 02/16/2022 1 1 Question Answer Please select the performing region: [facility] (All Locations) [[id number]] To provider: EDUARDO KWON [[id number]] # of visits: 1 Comments Please see nubia. Dr Kwon saw her in hospital and patient has aortic flap/thrombus. Thank you Reason for Visit * Reason Comments Hospital Follow Up blood clots Encounter Details Date Type Department Care Team (Late st Contact Info) Description 01/17/2021 12:15 PM CDT Office Visit [facility] [address] [facility] [address] [place] [id number] Newton Mendiola MD [address] [facility] [address] [place] [address] COVID-19 virus infection (Primary Dx); Prediabetes; Dissection of thoracic aorta (CMS/HCC) (HCC); Cardiomyopathy, unspecified type (HCC) Social History Tobacco Use Types Packs/Day [...] and Family Not on file 2021 Attends [employer] Not on file 01/16 Active Member [...] on file Legal Sex Female 7:55 AM SAFETY ADVISOR Gender Identity Not on file Sexual Orientation Not on file documented as of this encounter Last Filed Vital Signs Vital Sign Reading Time Taken Comments Blood Pressure 151/77 01/17/2021 12:33 PM CDT Pulse 123 01/17/2021 12:33 PM CDT Temperature - - Respiratory Rate - - Oxygen Saturation - - Inhaled Oxygen Concentration - - Weight 83.8 kg (184 lb 12.8 oz) 021 12:33 PM CDT Height 162.6 cm (5' 4 ) 01/17/2021 12:3 3 PM CDT Body Mass Index 31.72 01/17/2021 12:33 PM CDT documented in this encounter Progress Notes * Newton Mendiola MD - 01/17/2021 12:15 PM CDT Images from the original note were not included. Subjective/Objective Patient ID: Katy Sauceda is a 56 y.o. female. Chief Complaint Hospital Follow Up (blood clots) HPI Patient here today for evaluation and hospital follow-up. The patient was diagnosed with COVID-19 on December 25. 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 There was a large exophytic mass in the spleen consistent with possible infarct. Patient has had no pain in the legs and has had equal pulses. Follow-up CT a demonstrated decrease in the size ofthe aortic clot. There was also thrombus present in the branches of the right internal iliac artery. There was some evidence of volume overload. She has had a persistent cough but has gradually feeling better she has limited energy. There has been no fever chills. Cough is not productive. No lower extremity edema. She has had abdominal pain in the left upper quadrant which has been chronic since this occurred. She is on Eliquis. History reviewed. No pertinent surgical history. Family [...] use: No ??? Drug use: Not Currently There is no immunization history on file for this patient. Current Outpatient Medications Medication Sig ??? acetaminophen 500 mg capsule Take 2 capsules (1,000 mg total) by mouth every 6 (six) hours as needed for pain ??? [START ON 01/22/2021] apixaban (ELIQUIS) 5 mg tablet Take 1 tablet (5 mg total) by mouth 2 (two)times a day ??? aspirin 81 mg tablet Take 81 mg by mouth daily ??? atorvastatin (LIPITOR) 40 mg tablet Take 1 tablet (40 mg total) by mouth nightly ??? buPROPion XL (WELLBUTRIN XL) 300 mg 24 hr tablet TAKE 1 TABLET BY MOUTH EVERY DAY (Patient taking differently: Take 300 mg by mouth every morning ) ??? dapagliflozin (FARXIGA) 10 mg tablet Take 1 tablet (10 mg total) by mouth daily ??? ergocalciferol (VITAMIN D) 50,000 unit capsule Take 1 capsule (50,000 Units total) by mouth once a week fridays ??? famotidine (PEPCID) 40 mg tablet Take 1 tablet (40 mg total) by mouth daily ??? fluticasone propionate (FLONASE) 50 mcg/actuation nasal spray Administer 2 sprays into each nostril daily ??? isosorbide mononitrate ER (IMDUR) 30 mg 24 hr tablet TAKE 1 TABLET BY MOUTH EVERY DAY ??? loratadine (CLARITIN) 10 mg tablet Take 10 mg by mouth daily ??? losartan (COZAAR) 50 mg tablet Take 1 tablet (50 mg total) by mouth daily ??? metoprolol XL (TOPROL-XL) 100 mg 24 hr tablet Take 1 tablet (100 mg total) by mouth daily ??? ondansetron (ZOFRAN) 4 mg tablet Take 1 tablet (4 mg total) by mouth every 8 (eight) hours as needed for nausea or vomiting ??? pantoprazole DR (PROTONIX) 40 mg EC tablet TAKE 1 TABLET BY MOUTH EVERY DAY ??? senna-docusate (PERICOLACE) 8.6-50 mg Take 1 tablet by mouth 2 (two) times a day as needed for constipation ??? spironolactone (ALDACTONE) 25 mg tablet Take 1 tablet (25 mg total) by mouth daily Review of Systems Patient Vital Signs for the past 24 hrs: BP Pulse Height Weight 01/17/21 1233 151/77 123 162.6 cm (5' 4 ) 83.8 kg (184 lb 12.8 oz) Wt Readings from Last 3 Encounters: 01/17/21 83.8 kg (184 lb 12.8 oz) 01/10/21 81.6 kg (180 lb) 01/10/21 81.6 kg (180 lb) Physical Exam Vitals and nursing note [...] and all orders for this visit: COVID-19 virus infection (U07.1) (Primary) Comments: Slowly improving at this time Prediabetes (R73.03) Comments: Follow-up with Vicky next month Dissection of thoracic aorta (CMS/HCC) (HCC) (I71.01) Comments: Refer back to vascular surgery Assessment & Plan: On anticoagulation due to thrombus. Will refer to vascular surgery as this was not accomplished prior to discharge Cardiomyopathy, unspecified type (HCC) (I42.9) Labs Lab Results Component Value Date HGBA1C 6.2 11/22/2020 No results found for: POCCHOL Lab Results Component Value Date POCHDL 31 11/22/2020 Lab Results Component Value Date POCLDL 166 11/22/2020 Lab Results Component Value Date POCTRIG 176 11/22/2020 No results found for: A1C Lab Results Component Value Date CREATININE 0.74 01/15/2021 CREATININE 0.87 01/14/2021 CREATININE 0.78 01/13/2021 Lab Results Component Value Date COLORU Yellow 01/10/2021 CLARITYU Turbid (A) 01/10/2021 GLUCOSEUR 2+ (A) 01/10/2021 BILIRUBINUR Negative 01/10/2021 KETONESU Negative 01/10/2021 SPECGRAVU 1.029 01/10/2021 BLOODUR Trace (A) 01/10/2021 UROBILINOGEN <2.0 01/10/2021 Newton Mendiola MD documented in this encounter Miscellaneous Notes * Assessment & Plan Note - Newton Mendiola MD - 01/17/2021 1:16 PM CDT 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 Will refer to vascular surgery as this was not accomplished prior to discharge documented in this encounter Plan of Treatment Scheduled Procedures Name Priority Associated Diagnoses Date/Ti me ESOPHAGOGASTRODUODENOSCOPY Nausea Colon cancer screening COLONOSCOPY Nausea Colon cancer screening Scheduled Referrals Name Type Priority Associated Diagnoses Order Schedule Ambulatory referral to Vascular Surgery Outpatient Referral Routine Dissection of thoracic aorta (CMS/HCC) (HCC) Expected: 01/24/2021 (Approximate), Expires: 01/17/2022 documented as of this encounter Procedures Procedure Name Priority Date/Time Associated Diagnosis Comments BASIC METABOLIC PANEL Routine 01/17/2021 1:31 PM CDT Dissection of thoracic aorta (CMS/HCC) (HCC) documented in this encounter Results * (ABNORMAL) Basic metabolic panel (01/17/2021 1:31 PM CDT) Glucose 152(H) 65 - 99 mg/dL [facility] - 01 BUN 9 6 - 24 mg/dL [facility] - 01 Creatinine, Serum 0.73 0.57 - 1.00 mg/dL [facility] - 01 eGFR If NonAfricn Am 92 >59 mL/min/1. 73 [facility] - 01 eGFR If Africn Am 106 >59 mL/min/1. 73 [facility] - 01 Comment: In accordance with recommendations from the NKF-ASN Task force, ??[facility] is in the process of updating its eGFR calculation to the ??2020 CKD-EPI creatinine equation that estimates kidney function ??without a race variable. BUN/creat ratio 12 9 - 23 [facility] - 01 Sodium 141 134 - 144 mmol/L [facility] - 01 Potassium, sr 3.9 3.5 - 5.2 mmol/L [facility] - 01 Chloride 102 96 - 106 mmol/L [facility] - 01 CO2 23 20 - 29 mmol/L [facility] - 01 Calcium 9.1 8.7 - 10.2 mg/dL [facility] - 01 Blood specimen (specimen) 01/17/2021 1:31 PM CDT 01/17/2021 Narrative [facility] - 01/18/2021 9:11 AM CDT Performed at: ??01 - [facility] [address] ??[id number] Science Education Professor: Vernon Connell PhD, Phone: ??[phone] us Newton Mendiola MD LAB BLOOD ORDERABLES Final Re sult [facility] - 01 documented in this encounter Visit Diagnoses Diagnosis COVID-19 virus infection- Primary Prediabetes Other abnormal glucose Dissection of thoracic aorta (HCC) Dissection of aorta, thoracic Cardiomyopathy, unspecified type (HCC) documented in this encounter Discontinued Medications Medication Sig Discontinue Reason Start Date End Da te apixaban (ELIQUIS) 5 mg tabletIndications:deep venous thrombosis Take 2 tablets (10 mg total) by mouth 2 (two) times a day for 14 doses 01/15/2021 01/17/2021 fluticasone (CHILDREN'S FLONASE ALLERGY RLF) 50 mcg/actuation nasal spray Administer 1 spray into each nostril daily as needed 07/09/2016 01/17/2021 ondansetron (Zofran) 4 mg tabletIndications:Naus ea Take 1 tablet (4 mg total) by mouth every 8 (eight) hours as needed for nausea or vomiting 10/08/2020 01/17/2021 polyethylene glycol (MIRALAX) 17 gram packetIndications:cons tipation Take 1 packet (17 g total) by mouth daily 01/15/2021 01/17/2021 documented as of this encounter Additional Health Concerns Infection Onset Date Last Indicated Resolved Time COVID19 12/29/2020 12/29/2020 01/29/2021 3:05 AM SAFETY ADVISOR documented as of this encounter Care Teams Quality Engineering Manager Relationship Specialty Start Date End Date Newton Mendiola MD [address] [place] [address] PCP - General 06/09/16 Sly Cade MD [address] [address] Referring Physician Cardiology 12/07/18 Tuyet Weir, SPRING MAKER [address] [facility] ([facility]) Mailstop [phone] [place] [address] SHOP Outpatient Floor Coverer Apprentice 01/16/21 02/11/21 documented as of this encounter
--- OUTSIDE RECORDS SUMMARY | 2024-03-18 05:01 | XMS_ITS | Encounter Summary ---
Author Organization [facility] Address [address] [place] [address] Care Team Providers Care Smasher Name Role Phone Newton Mendiola MD Primary Care Provider [phone] Sly Cade MD Unavailable [phone] Reason for Visit * Reason Comments Unsuccessful Phone Call 3 Encounter Details Date Type Department Care Team (Late st Contact Info) Description 02/12/2021 SHOP/CHAP Subsequent Outreach [facility] [address] [place] [address] Tuyet Weir, [facility] [address] [facility] ([facility]) Mailstop [phone] [place], [place] [phone] Social History Tobacco Use Types Packs/Day Years [...] file Legal Sex Female 7:55 AM SUGAR BOILER Gender Identity Not on file Sexual Orientation Not on file documented as of this encounter Plan of Treatment Scheduled Procedures Name Priority Associated Diagnoses Date/Ti me ESOPHAGOGASTRODUODENOSCOPY Nausea Colon cancer screening COLONOSCOPY Nausea Colon cancer screening documented as of this encounter Visit Diagnoses Not on filedocumented in this encounter Care Teams Smasher Relationship Specialty Start Date End Date Newton Mendiola MD [address] [address] PCP - General 06/09/16 Sly Cade MD [address] [address] Referring Physician Cardiology 12/07/18 documented as of this encounter
--- OUTSIDE RECORDS SUMMARY | 2024-03-18 05:01 | XMS_ITS | Encounter Summary ---
Author Organization [facility] Healthcare Address [address] [place] [address] Care Team Providers Care Equip Maint Eng Name Role Phone Newton Mendiola MD Primary Care Provider [phone] Sly Cade MD Unavailable [phone] Tuyet Weir [facility] Unavailable [phone] Reason for Visit * Reason Comments Successfully Completed Encounter Details Date Type Department Care Team (Late st Contact Info) Description 2021 SHOP/CHAP Initial Outreach [facility] OP CASE MANAGEMENT [address] [place] [address] Tuyet Weir, [facility] [address] [facility] ([facility]) Mailstop [phone] [place] [address] Social History Tobacco Use Types Packs/Day Years [...] on file Legal Sex Female 7:55 AM LOADING AND UNLOADING SUPERVISOR Gender Identity Not on file Sexual Orientation Not on file documented as of this encounter Progress Notes * Tuyet Weir - 2021 10:39 AM CDT OCM spoke with pt via telephone. Pt consented to participate in SHOP. Pt has an appointment her PCPtomorrow, 01/17. Pt does not have any questions about her medications. Pt reports she is in a lot ofpain. Pt does not have any other questions or concerns at this time. OCM will continue to follow. documented in this encounter Plan of Treatment Scheduled Procedures Name Priority Associated Diagnoses Date/Ti me ESOPHAGOGASTRODUODENOSCOPY Nausea Colon cancer screening COLONOSCOPY Nausea Colon cancer screening documented as of this encounter Visit Diagnoses Not on filedocumented in this encounter Additional Health Concerns Infection Onset Date Last Indicated Resolved Time COVID19 12/29/2020 12/29/2020 01/29/2021 3:05 AM LOADING AND UNLOADING SUPERVISOR documented as of this encounter Care Teams Equip Maint Eng Relationship Specialty Start Date End Date Newton Mendiola MD [address] [employer] [address] [address] PCP - General 06/09/16 Sly Cade MD [address] [employer] [facility] [address] [address] Referring Physician Cardiology 12/07/18 Tuyet Weir, SALES AND MARKETING VICE PRESIDENT [address] [facility] ([facility]) Mailstop [phone] [place] [address] SHOP Outpatient Extract Mixer 01/16/21 02/11/21 documented as of this encounter
--- OUTSIDE RECORDS SUMMARY | 2024-03-18 05:01 | XMS_ITS | Encounter Summary ---
Author Organization [facility] Healthcare Address [address] [place] [address] Care Team Providers Care Molded Goods Inspector Trimmer Name Role Phone Newton Mendiola MD Primary Care Provider [phone] Sly Cade MD Unavailable [phone] Tuyet Weir [facility] Unavailable [phone] Reason for Visit * Reason Comments Successfully Completed Encounter Details Date Type Department Care Team (Late st Contact Info) Description 01/23/2021 SHOP/CHAP Subsequent Outreach [facility] OP CASE MANAGEMENT 1 [place] [address] Tuyet Weir, [facility] [address] [facility] ([facility] Mailstop [phone] [place] [address] Social History Tobacco Use Types Packs/Day Years [...] and Family Not on file 2021 Attends [employer] Not on file 01/16 Active Member [...] on file Legal Sex Female 7:55 AM FURNITURE ARRANGER Gender Identity Not on file Sexual Orientation Not on file documented as of this encounter Progress Notes * Tuyet Weir - 01/23/2021 10:15 AM CST OCM spoke with pt via telephone. Pt reports she is doing alright. She reports she is primarily trying to rest and is getting a little bored. Pt had an appointment with her PCP on 01/17. Pt is aware ofher upcoming appointment with Vascular Surgery on Thursday, 01/25. Pt does not have any questions or concerns at this time. OCM will continue to follow. ITURE ARRANGER documented in this encounter Plan of Treatment Scheduled Procedures Name Priority Associated Diagnoses Date/Ti me ESOPHAGOGASTRODUODENOSCOPY Nausea Colon cancer screening COLONOSCOPY Nausea Colon cancer screening documented as of this encounter Visit Diagnoses Not on filedocumented in this encounter Additional Health Concerns Infection Onset Date Last Indicated Resolved Time COVID19 12/29/2020 12/29/2020 01/29/2021 3:05 AM FURNITURE ARRANGER documented as of this encounter Care Teams Molded Goods Inspector Trimmer Relationship Specialty Start Date End Date Newton Mendiola MD [address] [employer] [address] PCP - General 06/09/16 Sly Cade MD [address] [employer] [address] [address] Referring Physician Cardiology 12/07/18 Tuyet Weir, JOSE [address] [facility] ([facility]) Mailstop [phone] [place] [address] SHOP Outpatient Veterinary Meat Inspector 01/16/21 02/11/21 documented as of this encounter
--- OUTSIDE RECORDS SUMMARY | 2024-03-18 05:01 | XMS_ITS | Encounter Summary ---
Author Organization [facility] Address [address] [place] [address] Phone Care Team Providers Care Systems Security Analyst Name Role Phone Newton Mendiola MD Primary Care Provider [phone] Sly Cade MD Unavailable [phone] Tuyet Weir [facility] Unavailable [phone] Encounter Details Date Type Department Care Team (Late st Contact Info) Description 01/25/2021 Telephone [facility] Surgery [address] [facility] 8th [place] [address] [place] [address] Eduardo Kwon MD [address] [place], [place] [id number] Social History Tobacco Use Types Packs/Day Years [...] on file Legal Sex Female 7:55 AM NARROW GAUGE OPERATOR Gender Identity Not on file Sexual Orientation Not on file documented as of this encounter Miscellaneous Notes * Telephone Encounter - Makenzie Rick CMA - 01/25/2021 2:48 PM CST Called pt to cancel CTA CAP at [facility]. It needed [facility] for authorization. Asked pt if she wouldlike to have at [facility] instead. She was fine with this. Faxed order to [facility] in [place]. OW GAUGE OPERATOR documented in this encounter Plan of Treatment Scheduled Procedures Name Priority Associated Diagnoses Date/Ti me ESOPHAGOGASTRODUODENOSCOPY Nausea Colon cancer screening COLONOSCOPY Nausea Colon cancer screening documented as of this encounter Visit Diagnoses Not on filedocumented in this encounter Additional Health Concerns Infection Onset Date Last Indicated Resolved Time COVID19 12/29/2020 12/29/2020 01/29/2021 3:05 AM NARROW GAUGE OPERATOR documented as of this encounter Care Teams Systems Security Analyst Relationship Specialty Start Date End Date Newton Mendiola MD [address] [employer] [address] [address] PCP - General 06/09/16 Sly Cade MD [address] [employer] [address] [place] [address] Referring Physician Cardiology 12/07/18 Tuyet Weir, JOSE [address] [facility] ([facility] Mailstop [phone] [place] [address] SHOP Outpatient Automation Architect 01/16/21 02/11/21 documented as of this encounter
--- OUTSIDE RECORDS SUMMARY | 2024-03-18 05:01 | XMS_ITS | Encounter Summary ---
Author Organization [facility] Address [address] [place] [address] Phone Care Team Providers Care Key Worker Name Role Phone Newton Mendiola MD Primary Care Provider [phone] Sly Cade MD Unavailable [phone] Tuyet Weir LCSW Unavailable [phone] Encounter Details Date Type Department Care Team (Late st Contact Info) Description 02/06/2021 10:30 AM EDGE INKER UPPERS Office Visit [facility] Cardiology [address] [facility] Medical Office Building [address] [place] [address] Cat Vale, STARTING GATE DRIVER [address] [place] [address] Aortic thrombus (CMS/HCC) (HCC) (Primary Dx); Atrial tachycardia (CMS/HCC) (HCC); NICM (nonischemic cardiomyopathy) (CMS/HCC) (HCC); LBBB (left bundle branch block) Social History Tobacco Use Types Packs/Day Years [...] on file Legal Sex Female 7:55 AM EDGE INKER UPPERS Gender Identity Not on file Sexual Orientation Not on file documented as of this encounter Last Filed Vital Signs Vital Sign Reading Time Taken Comments Blood Pressure 118/76 02/06/2021 10:28 AM EDGE INKER UPPERS Pulse 87 02/06/2021 10:28 AM EDGE INKER UPPERS Temperature - - Respiratory Rate - - Oxygen Saturation 98% 02/06/2021 10:28 AM EDGE INKER UPPERS Inhaled Oxygen Concentration - - Weight 83.6 kg (184 lb 6.4 oz) 02/06/2021 10:28 AM EDGE INKER UPPERS Height 165.1 cm (5' 5 ) 02/06/2021 10:28 AM EDGE INKER UPPERS Body Mass Index 30.69 02/06/2021 10:28 AM EDGE INKER UPPERS documented in this encounter Progress Notes * Cat Vale, STARTING GATE DRIVER - 02/06/2021 10:30 AM CST Cardiology Return Office Visit Primary care Physician Newton Mendiola MD [address] [facility] [address] [facility] [address] Patient Name: Katy Sauceda Date of : 1965 Date of Visit: 02/06/2021 PRINCIPAL AND SECONDARY DIAGNOSES: 1. NICM a. Informed of LBBB during pre-op EKG years ago , then Dx with NICM in [facility] demonstrating no angiographically significant CAD b. TTE 12/29/18 = LVEDD 4.3 cm with LVEF 41% & global hypokinesis c. CMR 02/01 = LVEF 44%, no delayed contrast enhancement to suggest infiltrative cardiomyopathy d. TTE 12/2020 = LVEF 55% 2. Long RP tachycardia a. 05/20/20 on Kardia = likely atrial tachycardia 3. Non-cardiac a. 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 Pre-diabetes c. Intolerance to metformin (abdominal pain 11/2020) Katy Sauceda is a 56 y.o. female who presents today at the [facility] at [facility] in [place] for follow-up on her recent hospitalization. Her forest technology professor is Dr. Remy. At her last visit with Dr. Remy in November she was complaining of exertional dyspnea. ECHO revealed increased filling pressures. She was started on Farxiga. Exertional dyspnea improved, but she then contracted COVID-19 in early December. She was ill but not hospitalized for two weeks. 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 She was started on 3 month course of Eliquis and is following with Dr. Kwon in Vascular Surgery. During her hospitalization she was hypotensive, hypokalemic, and tachycardic with paroxysmal SVT. She denies any issues with CHF. She had an echo performed which showed improved LVEF 55%. Home blood pressure meds were held temporarily but have since been resumed by PCP. She had palpitations initially following hospitalization but these have since calmed down. Fatigue is improving withtime. Breathing is also improving and almost back to normal. She denies any chest pain, orthopnea/PND, lower extremity edema, lightheadedness, or dizziness. No stroke or TIA symptoms. CURRENT MEDICATIONS: Current Outpatient Medications: ??? apixaban (ELIQUIS) 5 mg tablet ??? aspirin 81 mg tablet ??? atorvastatin [...] (TOPROL-XL) 100 mg 24 hr tablet ??? ondansetron (ZOFRAN) 4 mg tablet ??? pantoprazole DR (PROTONIX) 40 mg EC tablet ??? senna-docusate (PERICOLACE) 8.6-50 mg ??? spironolactone (ALDACTONE) 25 mg tablet ??? acetaminophen 500 mg capsule PHYSICAL EXAMINATION: Vitals: 02/06/21 1028 BP: 118/76 BP Location: Left arm Patient Position: Sitting Pulse: 87 SpO2: 98% Weight: 83.6 kg (184 lb 6.4 oz) Height: 165.1 cm (5' 5 ) GENERAL: Alert and oriented, well-nourished, in no acute distress. HEENT: Mucous membranes are moist. Sclerae white. No thyromegaly or lymphadenopathy. LUNGS: Normal effort and respiratory rate. Lungs clear to auscultation bilaterally. HEART: Normal rate, regular rhythm. No murmur present. No rubs or gallops. ABDOMEN: Soft, non-tender, and non-distended. No hepatosplenomegaly. MUSCULOSKELETAL: 5+ strength in upper and lower extremities, bilaterally symmetric. NEUROLOGIC/PSYCH: Alert and oriented x4. Calm and appropriate affect. Grossly normal bilateral motor function and sensation. VASCULAR: Extremities warm and well-perfused. All pulses intact. No edema. No carotid bruit. No JVD. SKIN: No cyanosis, pallor, clubbing, or rashes. LABORATORY/DIAGNOSTICS: TTE 12/2020 Tachycardia present throughout the study, HR 106 [...] left shunt with and without Valsalva maneuver. IMPRESSION AND PLAN: 1. Aortic thrombus (CMS/HCC) (HCC) She is following with Dr. Kwon in Vascular Surgery and is planned for three months of Eliquis anticoagulation. 2. Atrial tachycardia (CMS/HCC) (HCC) Recurrent atrial arrhythmias while hospitalized but this has since resolved. Continue beta-raciel. 3. NICM (nonischemic cardiomyopathy) (CMS/HCC) (HCC) LBBB (left bundle branch block) LVEF improved at 55% on recent TTE. She is euvolemic and NYHA class I. Continue guideline medical therapy. We will plan to see her back 6 months, however we would be happy to see her sooner if needed. Cat Vale, [facility] CC: Newton Mendiola MD [address] [address] INKER UPPERS documented in this encounter Plan of Treatment Scheduled Procedures Name Priority Associated Diagnoses Date/Ti me ESOPHAGOGASTRODUODENOSCOPY Nausea Colon cancer screening COLONOSCOPY Nausea Colon cancer screening documented as of this encounter Visit Diagnoses Diagnosis Aortic thrombus (CMS/HCC) (HCC)- Primary Atrial tachycardia (HCC) Other specified cardiac dysrhythmias NICM (nonischemic cardiomyopathy) (CMS/HCC) (HCC) LBBB (left bundle branch block) Other left bundle branch block documented in this encounter Care Teams Key Worker Relationship Specialty Start Date End Date Newton Mendiola MD [address] [address] PCP - General 06/09/16 Sly Cade MD [address] [address] Referring Physician Cardiology 12/07/18 Tuyet Weir, GRAIN ELEVATOR SUPERINTENDENT [address] [facility] ([facility] Mailstop [phone] [place] [address] SHOP Outpatient Energy Scheduler 01/16/21 02/11/21 documented as of this encounter
--- OUTSIDE RECORDS SUMMARY | 2024-03-18 05:01 | XMS_ITS | Encounter Summary ---
Author Organization [facility] Healthcare Address [address] [place] [address] Care Team Providers Care Truck Greaser Name Role Phone Newton Mendiola MD Primary Care Provider [phone] Sly Cade MD Unavailable [phone] Reason for Visit * Reason Comments Abdominal Pain Encounter Details Date Type Department Care Team (Latest Contact Info) Description 01/10/2021 10:32 PM CDT - 01/15/2021 12:01 PM CDT Hospital Encounter [facility] [address] [place] [address] Fabrice Ludwig MD PhD [address] [place] [address] Jeanne Gotti MD [address] [place] [address] Mitchell De Anda MD [address] [place] [address] Aortic thrombus (CMS/HCC) (HCC) (Primary Dx) Discharge Disposition: Discharge to home or self care Social History Tobacco Use Types Packs/Day Years Used Date Smoking Tobacco: Never Assessed Social Connection and Isolation Panel [NHANES] A [...] on file 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 Gender Identity Not on file Sexual Orientation Not on file documented as of this encounter Last Filed Vital Signs Vital Sign Reading Time Taken Comments Blood Pressure 149/77 01/15/2021 10:55 AM CDT Pulse 97 01/15/2021 10:55 AM CDT Temperature 36.9 ??C (98.4 ??F) 01/15/2021 10:55 AM C DT Respiratory Rate 18 01/15/2021 10:55 AM CDT Oxygen Saturation 97% 01/15/2021 10:55 AM CDT Inhaled Oxygen Concentration - - Weight 81.6 kg (180 lb) 01/10/2021 10:25 PM CDT Height 162.6 cm (5' 4 ) 01/10/2021 10:25 PM CDT Body Mass Index 30.9 01/10/2021 10:25 PM CDT documented in this encounter Discharge Diagnoses Diagnosis 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) - EMBOLISM AND THROMBOSIS OF THORACIC AORTA Embolism and thrombosis of thoracic aorta Embolism and thrombosis of other arteries (HCC) - EMBOLISM AND THROMBOSIS OF OTHER ARTERIES Other cardiomyopathies (HCC) - OTHER CARDIOMYOPATHIES Unspecified systolic (congestive) heart failure (HCC) - UNSPECIFIED SYSTOLIC (CONGESTIVE) HEART FAILURE Infarction of spleen - INFARCTION OF SPLEEN Personal history of Hodgkin lymphoma - PERSONAL HISTORY OF HODGKIN LYMPHOMA Personal history of irradiation - PERSONAL HISTORY OF IRRADIATION Personal history of irradiation, presenting hazards to health Personal history of antineoplastic chemotherapy - PERSONAL HISTORY OF ANTINEOPLASTIC CHEMOTHERAPY Hypertensive heart disease with heart failure (CMS/HCC) (HCC) - HYPERTENSIVE HEART DISEASE WITH HEART FAILURE Unspecified hypertensive heart disease with heart failure Gastro-esophageal reflux disease without esophagitis - GASTRO-ESOPHAGEAL REFLUX DISEASE WITHOUT ESOPHAGITIS Hyperlipidemia, unspecified - HYPERLIPIDEMIA, UNSPECIFIED Personal history of COVID-19 - PERSONAL HISTORY OF 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 - SKILLED NURSING (CURRENT) USE OF ASPIRIN Personal history of nicotine dependence - PERSONAL HISTORY OF NICOTINE DEPENDENCE Hypokalemia - HYPOKALEMIA Hypopotassemia Other termite helper (current) drug therapy - OTHER VENEER PRESS OPERATOR (CURRENT) DRUG THERAPY documented in this encounter Discharge Summaries * Amber Atwood NP - 01/14/2021 8:23 AM CDT Inpatient Discharge Summary BRIEF OVERVIEW Admitting Provider: Mitchell De Anda MD Discharge Provider: Mitchell De Anda MD Primary Care Physician at Discharge: Newton Mendiola MD [phone] Admission Date: 01/10/2021 Discharge Date: 01/15/2021 Admission Location: [facility] Problems/Diagnoses: Active Problems: Left lower quadrant pain COVID-19 virus infection Hypokalemia Resolved Problems: No resolved hospital problems. DETAILS OF HOSPITAL STAY Presenting Problem/History of Present Illness: Ms Sauceda is a 55 year old female with a history of HTN, HLD, Hodgkin's lymphoma s/p chest XRT 1992,NICM (ED 51% in 11/2020), and recent COVID-19 infection (12/29/20) presents with LUQ pain x 1 day. Pain started while she was at rest. Denies any inciting trauma. Radiates to Left back and behind Leftribs. Pain was constant and got progressively worse throughout the day, prompting her to visit OSH ED on 01/10/2021. There, was hypertensive to SBPs and tachycardic to 110s. CT PE protocol demonstrated a dissection flap vs thrombus in the descending aorta just distal to the aortic isthmus, and a large exophytic mass off the spleen concern for infarct vs growth. Patient was ransferred to [facility] ED for further management by Vascular Surgery. PSH includes cholecystectomy and umbilica hernia repair, and shoulder surgeries. Hospital Course: The following issues were addressed this admission: Left lower quadrant pain Patient recent COVID-19 infection (12/29/20) presents with LUQ pain x 1 day[facility] PE protocol demonstrated a dissection flap vs thrombus in the descending aorta just distal to the aortic isthmus, and a large exophytic mass off the spleen concern for infarct vs growth. Patient was ransferred to [facility] ED for further management by Vascular Surgery. On arrivalto the ED palpable femoral, radial pulses, bilateral DP/PT multiphasic. Sensorimotor intact in all 4 extremities. -The patient was continued on hep gtt -Repeat CTA (01/13/21) with decrease in size of aortic clot as well as a splenic infarct. Please see CT report for details. -Patient continued to have no abdominal pain throughout this hospitalization. -Heparin gtt transitioned to Eliquis prior to discharge Hypertension -Home regimen: Losartan 50mg daily, Metoprolol 100mg daily, Isosorbide 30mg daily and Spironolactone 25mg daily. -Home Lisinopril and spironolactone held while inpatient 2/2 normotension -Continue Metoprolol and Isosorbide -PCP made aware -PCP follow-up on 01/17/2021 for BP check and resumption of home hypertensives Hypokalemia Patient with hypokalemia this admission -Potassium replaced -Discussed with PCP the day of discharge. Patient is scheduled to be seen by PCP on 01/17/2021 for BMP check. COVID-19 virus infection Presented with recent COVID-19 infection (12/29/20). From a COVID infection standpoint, her cough and shortness of breath is much improved. -Remained stable in COVID unit throughout this admission Patient was deemed medically stable and appropriate for discharge on 01/15/2021. Note: This patient was in Covid unit during this admission and followed by our vascular fellow. Patient's H&P, hospital course and exam were obtained from vascular fellow. Active Issues Requiring Follow-up: PCP follow-up for potassium check, BP check and resumption of home medications Vascular surgery follow-up Test Results Pending at Discharge: NA Operative Procedures Performed: None Other Procedures: None Pertinent Test Results: 01/14/2021: K level 3.2. Received 80meq potassium chloride Discharge Details Physical Exam at Discharge: Discharge Condition: good Pulse: 95 Resp: 17 BP: 157/84 Temp: 36.9 ??C (98.4 ??F) Weight: 81.6 kg (180 lb) Pertinent Exam Findings at Discharge: GENERAL: Awake, alert, oriented x 4; no acute distress. HEENT: Eyes: Pupils equal, round, reactive to light and accommodation. NECK: Supple and symmetric. Full range of motion without pain. RESPIRATORY: Good respiratory effort. Chest: Symmetrical rise and fall. Symmetrical expansion with respirations. CARDIOVASCULAR: Regular rate and rhythm. GASTROINTESTINAL: Bowel sounds equal times four quadrants. Abdomen is nondistended. MUSCULOSKELETAL: Normal gait and station. Extremities move times four. No tenderness or effusion. Range of motion adequate. Strength and tone equal bilaterally, stable. No edema. PULSES: Bilateral DP/PT palpable NEUROLOGICAL: Cranial nerves II-XII grossly intact. Sensation intact. This patient's exam was performed by our vascular fellow in the COVID unit. Discharge Disposition: Code Status at Discharge: Full code Discharge Instructions: Other Instructions Call provider for: Open Aortic Repair -You have a temperature greater than 101 degrees F -You abdominal or back pain, bloating, nausea, vomiting or persistent diarrhea -You are not able to drink liquids -You have decreases amounts of urine or urine that is darker in color -You have leg pain with coolness -You have swelling in one leg with redness or warmth -You have shortness of breath Discharge Medications: Current Medications TAKE these medications acetaminophen 500 mg capsule Take 2 capsules (1,000 mg total) by mouth every 6 (six) hours as needed for pain * apixaban 5 mg tablet Take 2 tablets (10 mg total) by mouth 2 (two) times a day for 14 doses For: blood clot in a deep vein of the extremities Commonly known as: ELIQUIS * apixaban 5 mg tablet Take 1 tablet (5 mg total) by mouth 2 (two) times a day For: blood clot in a deep vein of the extremities Commonly known as: ELIQUIS Start taking on: January 22, 2021 aspirin 81 mg enteric coated tablet Take 81 mg by mouth daily atorvastatin 40 mg tablet Take 1 tablet (40 mg total) by mouth nightly Commonly known as: LIPITOR buPROPion XL 300 mg 24 hr tablet TAKE 1 TABLET BY MOUTH EVERY DAY Commonly known as: WELLBUTRIN XL * Children's Flonase Allergy Rlf 50 mcg/actuation nasal spray Administer 1 spray into each nostril daily as needed Generic drug: fluticasone propionate * fluticasone propionate 50 mcg/actuation nasal spray Administer 2 sprays into each nostril daily Commonly known as: FLONASE dapagliflozin 10 mg tablet Take 1 tablet (10 mg total) by mouth daily For: heart failure with reduced ejection fraction Commonly known as: FARXIGA ergocalciferol 50,000 unit capsule Take 1 capsule (50,000 Units total) by mouth once a week fridays Commonly known as: VITAMIN D famotidine 40 mg tablet Take 1 tablet (40 mg total) by mouth daily Commonly known as: PEPCID isosorbide mononitrate ER 30 mg 24 hr tablet TAKE 1 TABLET BY MOUTH EVERY DAY Commonly known as: IMDUR loratadine 10 mg tablet Take 10 mg by mouth daily Commonly known as: CLARITIN metoprolol XL 100 mg 24 hr tablet Take 1 tablet (100 mg total) by mouth daily Commonly known as: TOPROL-XL ondansetron 4 mg tablet Take 1 tablet (4 mg total) by mouth every 8 (eight) hours as needed for nausea or vomiting Commonly known as: Zofran pantoprazole DR 40 mg EC tablet TAKE 1 TABLET BY MOUTH EVERY DAY Commonly known as: PROTONIX polyethylene glycol 17 gram packet Take 1 packet (17 g total) by mouth daily For: constipation Commonly known as: MIRALAX senna-docusate 8.6-50 mg Take 1 tablet by mouth 2 (two) times a day as needed for constipation For: constipation Commonly known as: PERICOLACE * This list has 4 medication(s) that are the same as other medications prescribed for you. Read the directions carefully, and ask your doctor or other care provider to review them with you. Outpatient Follow-Up: Future Appointments Date Time Provider Department Center 01/17/2021 12:30 PM Vicky Donaldson NP [facility] 02/21/2021 9:30 AM Vicky Donaldson NP [facility] 07/16/2021 4:00 PM Matt Remy MD [facility] Cosigned by Mitchell De Anda MD at 2021 10:26 AM CDT documented in this encounter Medications at [...] day 60 tablet 01/22/2021 1 atorvastatin (LIPITOR) 40 mg tablet Take [...] 06/14/2020 2 documented as of this encounter Ordered Prescriptions Prescription Sig Dispense Quantity Refills Last Filled Start Date End Date senna-docusate (PERICOLACE) 8.6-50 mgIndications:con stipation Take 1 tablet by mouth 2 (two) times a day as needed for constipation 30 tablet 01/15/2021 1 polyethylene glycol (MIRALAX) 17 gram packetIndications :constipation Take 1 packet (17 g total) by mouth daily 5 packet 01/15/2021 1 apixaban (ELIQUIS) 5 mg tabletIndications :deep venous thrombosis Take 1 tablet (5 mg total) by mouth 2 (two) times a day 60 tablet 01/22/2021 1 apixaban (ELIQUIS) 5 mg tabletIndications :deep venous thrombosis Take 2 tablets (10 mg total) by mouth 2 (two) times a day for 14 doses 28 tablet 01/15/2021 1 acetaminophen 500 mg capsule Take 2 capsules (1,000 mg total) by mouth every 6 (six) hours as needed for pain 30 tablet 01/15/2021 2 atorvastatin (LIPITOR) 40 mg tablet Take 1 tablet (40 mg total) by mouth nightly 30 tablet 01/15/2021 1 documented in this encounter Discharge Disposition Disposition Code Departure Means Destination Discharge to home or self care Other documented in this encounter Progress Notes * Lesly Dixon RN - 01/15/2021 10:47 AM CDT 01/14/21 1316 Discharge Summary Chart reviewed For Medical Necessity Does patient have a planned readmission to hospital planned? No Discharge Disposition Home Equipment/Provider Needs No Home Needs Identified Discharge Additional Assistance Does the patient need discharge transport arranged? No Post Discharge Care Provider Post Discharge Care Plan Next level of care provider has access to complete EMR Per medical team, patient is medically stable for discharge at this time. Family will provide transportation home and will be available to assist at home. Myles's follow up appointments are scheduled. Myles has chosen to have discharge prescriptions filled by mobile pharmacy. No additional discharge needs identified. Patient and/or family agrees with this plan. If any further discharge needs arise, please contact the covering top case assembler. For emergency needs after 4:30 pm, please call the spinner operator For weekend/holiday needs from 8:00 a.m. - 4:30 p.m., please call the Weekend Cracking Still Operator RAISSA Morrissey, metal fabrication supervisor * Zevrosa Karen Desouzais, PT - 01/15/2021 9:03 AM CDT Physical Therapy For questions, please review the treatment team and contact the PT or GENERAL LABOR FORKLIFT OPERATOR currently assigned to this patient. If a physical therapy clinician is not assigned to this patient, please call [phone]. Physical Therapy Initial Assessment NOTE: This is a summary note for the coats assessments completed during the evaluation session. For full details, review chart review for all flowsheets documented on by this physical therapist on thisdate. Vital signs documented in vital signs flowsheet. Assessment Plan Plan Plan : Discharge, If this is the last note, consider this the discharge summary PT Recommendation and Plan Recommendation/Plan PT Recommendation/Plan: Home with family, No further PT indicated PT Frequency: One time visit (Discharge from this service) (0) PT - OK to Discharge: Yes PT Evaluation Complete: Yes General Information General Chart Reviewed: Yes Session Type: Evaluation (and discharge) PT Received On: 01/15/21 Safe Environment: Arm Band Checked Subjective: Agreeable to Therapy Subjective Comment: pt supine in bed at start of session Family/Caregiver Present: No Physical Therapy-Patient Goal: no specific therapy goal stated Prior Function Prior Function Level of [place]: Independent functional transfers, Independent with ADLs, Independent with ambulation Lives With: Spouse Fall within the last 6 months: No Home Living Home Living Type of Home: House Home Layout: Multi-level Home Access: Stairs to enter with rails Entrance Stairs-Number of Steps: 5 Home Mobility Equipment: None Precautions Precautions Precautions: None Pain Pain Assessment Pain Assessment: No/denies pain Cognition Cognition Arousal/Alertness: Alert, Appropriate responses to stimuli Orientation : Oriented X4 (person, place, time, situation) Following Commands: Follows all commands and directions without difficulty 6 Clicks Basic Mobility - 6 Click How much difficulty does the patient have: Turning over in bed: None How much difficulty does the patient currently have: Sitting down and standing up from a chair witharms?: None How much difficulty does the patient have: Moving from lying on back to sitting on the side of the bed?: None How much difficulty does the patient have: Moving to and from a bed to a chair including wheelchair?: None How much help does the patient currently need: Walk in hospital room?: None How much help from another person does the patient currently need: Climbing 3-5 steps with a railing?: None Total 6 Click Score (range 6-24): 24 Score Interpretation: 24 Bed Mobility Bed Mobility 1 Bed Mobility From 1: Supine Bed Mobility Type 1: To and from Bed Mobility to 1: Edge of bed Level of Assistance 1: Independent Transfers Transfer 1 Transfer From 1: Sit Transfer Type 1: To and from Transfer to 1: Stand Transfer Device 1: No device Transfer Level of Assistance 1: Independent Balance Ambulation Ambulation Ambulation: Yes Ambulation 1 Distance (ft) 1: 20 Surface 1: Level tile Device 1: No device Assistance 1: Independent Quality of Gait 1: no gait deviations; didn't walk far enough to gather gait speed Stairs Curbs RLE Assessment RLE Assessment RLE Assessment: Within Functional Limits LLE Assessment LLE Assessment LLE Assessment: Within Functional Limits Equipment Used Other Comments Other Comments Other PT Comments: pt in bed at end of session, call light in reach. PT Goals Multi-Disciplinary Problems (from Physical Therapy) Active Problems Not on file * Lesly Dixon RN - 01/14/2021 1:17 PM CDT DAMARI Initial Assessment Interview Note Information Obtained From: Patient (01/14/21 3664) Admission Source: Non health care facility Impression: 55F with HTN, HLD, hx of Hodgkin's lymphoma s/p chest XRT 1992, NICM (EF 51% in 11/2020), recent COVID-19 (10/16/21)??presents with LUQ pain. OSH CT PE protocol??shows dissection??vs thrombus??in descending thoracic aorta and associated splenic infarct Plan Includes: Safe discharge home Primary Source of Transportation: Family Does the patient need discharge transport arranged?: No (01/14/211315) Health Insurance Coverage: [facility] Prescription Coverage: Yes Pharmacy: [facility] in [place] Primary Care Provider: Newton Mendiola MD Prior to Admission: Primary Caregiver: Self Support System: Spouse/Significant Other Support system contact info (name, phone, availablity): Kamaljit Sauceda () [phone] Home Care Services: No Durable Medical Equipment: None Living Arrangements: Spouse/significant other Type of Residence: Private residence Steps in home? : Yes, Outside of home, Yes, Inside home Number of steps inside:: 5 steps Number of steps outside:: 5 steps (01/14/211313) Potential discharge needs include: None Behavioral Health Services: Behavioral Health Services: No (01/14/211313) Patient expects to be Discharged to: Private residence, (01/14/211313) Additional Information: Role of CM explained to patient. CM verified address, phone number, insurance and emergency contact from facesheet with patient/family. Patient's Identified Problem/Goal Problem: Ensure acute medical needs are met and that patient has a safe discharge plan. Goal: Secure a discharge plan that patient/family are agreeable with and ensure patient has continuum of care. Case management will follow for discharge planning and send referrals as needed. Goals include: To assure continuity of care, To maximize coping skills, To assure patient is in a safe environment and To assure access to community resources. Plan includes: 1. Collaboration with patient, MD, direct care nurse, Paediatric Physiotherapist, Nurse Coordinator and other members of the health care team to assure needed interventions completed. 2. Return patient to optimal level of self-care post discharge. 3. Cracking Still Operator will follow for Discharge Planning - interventions as needed 4. Anticipated level of care at discharge 5. Planned Discharge Disposition Based on a comprehensive family assessment, assistance with instrumental activities of daily livingafter discharge will be provided by family. Through the course of our work I determined that the family possesses the skill and ability to provide and monitor the care of the patient when he or she returns home. Family has the capacity to provide/monitor/arrange for the care of the patient. Finally, we determined that family has the knowledge of available resources and that combining them with their existing resources will suffice to sustain and care for the patient when he or she returns home. The treatment team is aware of this information. All are in agreement with the aftercare plan. Lesly Dixon RN * Amber Atwood NP - 01/14/2021 7:00 AM CDT Vascular Surgery Daily Progress Patient Name/MRN: Myles Sauceda [id number] Treatment Team: Vascular Surgery- Pager: [phone] Attending: Mitchell De Anda MD Today's Date: 01/15/2021 Room/Bed: [place] [address] [address] Admit Date: 01/10/2021 Code Status: Full Code Subjective Chief complaint: LLQ pain Events During This Hospitalization: Patient presented with LLQ pain. CT PE protocol demonstrated a dissection flap vs thrombus in the descending aorta just distal to the aortic isthmus, and a large exophytic mass off the spleen concernfor infarct vs growth. Patient was ransferred to [facility] ED for further management by Vascular Surgery Events Over Last 24 Hours: No acute events overnight Allergies Allergen Reactions ??? Codeine Other (See comments) and Vomiting Reaction: RASH;, ??? Hydrocodone Vomiting ??? Penicillin Other (See comments) Reaction: UNKNOWN, Current Facility-Administered Medications Medication Dose Route Frequency Provider Last Rate Last Admin ??? acetaminophen (TYLENOL) tablet 1,000 mg 1,000 mg oral Q6H [facility] Terri Orona MD 1,000 mg at 01/15/21 0521 ??? apixaban (ELIQUIS) tablet 10 mg 10 mg oral BID Amber Atwood NP 10 mg at 01/15/21 0905 Followed by ??? [START ON 01/22/2021] apixaban (ELIQUIS) tablet 5 mg 5 mg oral BID Amber Atwood NP ??? aspirin enteric coated tablet 81 mg 81 mg oral Daily Terri Orona MD 81 mg at 01/15/21906 ??? atorvastatin (LIPITOR) tablet 40 mg 40 mg oral Nightly Mitchell De Anda MD 40 mg at 01/14/212045 ??? benzonatate (TESSALON) capsule 100 mg 100 mg oral TID PRN Amber Atwood NP 100 mg at 01/14/21 1640 ??? bisacodyL (DULCOLAX) suppository 10 mg 10 mg rectal Daily Amber Atwood NP 10 mg at 01/15/21907 ??? buPROPion XL (WELLBUTRIN XL) 24 hour tablet 300 mg 300 mg oral QAM Terri Orona MD 300 mg at 01/15/21906 ??? famotidine (PEPCID) tablet 40 mg 40 mg oral Daily Terri Orona MD 40 mg at 01/15/21906 ??? isosorbide mononitrate ER (IMDUR) extended release tablet 30 mg 30 mg oral Daily Terri Orona MD 30 mg at 01/15/21906 ??? loratadine (CLARITIN) tablet 10 mg 10 mg oral Daily Terri Orona MD 10 mg at 01/15/21906 ??? [Held by Provider] losartan (COZAAR) tablet 50 mg 50 mg oral Daily Terri Orona MD ??? metoprolol tartrate (LOPRESSOR) immediate release tablet 50 mg 50 mg oral BID Terri Orona MD 50 mg at 01/15/21906 ??? ondansetron (ZOFRAN) injection 4 mg 4 mg intravenous Q4H PRN Eva Reina NP 4 mg at 01/13/21 1258 ??? oxyCODONE (ROXICODONE) tablet 5 mg 5 mg oral Q4H PRN Terri Orona MD 5 mg at 01/11/21 1131 ??? pantoprazole DR (PROTONIX) extended release tablet 40 mg 40 mg oral Daily Terri Orona MD 40 mg at 01/15/21907 ??? polyethylene glycol (MIRALAX) packet 17 g 17 g oral Daily Amber Atwood NP 17 g at ??? potassium chloride ER (KLOR-CON) extended release tablet 40 mEq 40 mEq oral Once NaAmber bowens NP ??? prochlorperazine (COMPAZINE) injection 5 mg 5 mg intravenous Q6H PRN Eva Reina NP 5 mg at 01/11/21 1722 ??? senna-docusate (PERICOLACE) 8.6-50 mg per tablet 1 tablet 1 tablet oral BID PRN Terri Orona MD ??? senna-docusate (PERICOLACE) 8.6-50 mg per tablet 1 tablet 1 tablet oral BID Amber Atwood NP 1 tablet at 01/15/21 0907 ??? sodium chloride 0.9% flush 0.5-20 mL 0.5-20 mL intra-catheter Q8H NICK Terri Orona MD 10 mL at103/17/20 0522 ??? sodium chloride 0.9% flush 0.5-20 mL 0.5-20 mL intra-catheter PRN Terri Orona MD ??? [Held by Provider] spironolactone (ALDACTONE) tablet 25 mg 25 mg oral Daily Terri Orona MD Objective Vitals: 24hr Min/Max: Temp Min: 36.4 ??C (97.5 ??F) Max: 36.9 ??C (98.4 ??F) Pulse Min: 88 Max: 98 BP Min: 127/71 Max: 157/84 Resp Min: 16 Max: 17 SpO2 Min: 95 % Max: 99 % Most Recent : Vitals: 01/15/21 0903 BP: 157/84 Pulse: 95 Resp: Temp: SpO2: 97% No intake/output data recorded. No intake/output data recorded. Physical Exam: GENERAL: Awake, alert, oriented x 4; no acute distress. HEENT: Eyes: Pupils equal, round, reactive to light and accommodation. NECK: Supple and symmetric. Full range of motion without pain. RESPIRATORY: Good respiratory effort. Chest: Symmetrical rise and fall. Symmetrical expansion with respirations. CARDIOVASCULAR: Regular rate and rhythm. GASTROINTESTINAL: Bowel sounds equal times four quadrants. Abdomen is nondistended. MUSCULOSKELETAL: Normal gait and station. Extremities move times four. No tenderness or effusion. Range of motion adequate. Strength and tone equal bilaterally, stable. No edema. PULSES: Bilateral DP/PT palpable NEUROLOGICAL: Cranial nerves II-XII grossly intact. Sensation intact. This patient's exam was performed by our vascular fellow in the COVID unit. Assessment/Plan Active Problems: Left lower quadrant pain COVID-19 virus infection Hypokalemia Hypokalemia Assessment & Plan Patient with hypokalemia this admission -Potassium replaced -Daily BMP COVID-19 virus infection Assessment & Plan Presented with recent COVID-19 infection (12/29/20) -Remained in COVID unit throughout this admission Left lower quadrant pain Assessment & Plan Pt recent COVID-19 infection (12/29/20) presents with LUQ pain x 1 day, prompting her to visit [facility] ED on 01/10/2021. CT PE protocol demonstrated a dissection flap vs thrombus in the descending aorta just distal to the aortic isthmus, and a large exophytic mass off the spleen concern for infarct vs g rowth. Patient was ransferred to [facility] ED for further management by Vascular Surgery. On arrival to the ED palpable femoral, radial pulses, bilateral DP/PT multiphasic. Sensorimotor intact in all 4 extremities. -The patient was continued on hep gtt -Repeat CTA (01/13/21) with decrease in size of aortic clot as well as a splenic infarct -Continue hep gtt Hypertension Assessment & Plan -Home regimen: Losartan 50mg daily, Metoprolol 100mg daily, Isosorbide 30mg daily and Spironolactone 25mg daily. -Held home Lisinopril and spironolactone while inpatient 2/2 normotension -Continue Metoprolol and Isosorbide -Q4 hrs VS For patients or family members viewing this note through [employer] programs: This note was written as a communication tool between healthcare providers and may contain technical language, terminology and abbreviations that is difficult to interpret without advanced medical training. If you have questions or concerns regarding what is written in this note, please request to speak with the primary medical team taking care of you or your family member or call your PCP for clarification. Please do not call the cell or pager numbers listed in this note, as the provider they are associated with may no longer be involved in your care. Cosigned by Mitchell De Anda MD at 2021 10:26 AM CDT * Jaziel Barnes MD - 01/12/2021 10:01 AM CDT Vascular Surgery Daily Progress Patient Name/MRN: Myles Sauceda [id number] Treatment Team: Vascular Surgery Surgery- Attending: Mitchell De Anda MD Today's Date: 01/12/2021 Room/Bed: [id number] Admit Date: 01/10/2021 Code Status: Full Code Subjective Chief complaint: aortic thrombus Events Over Last 24 Hours: No acute events overnight. Allergies Allergen Reactions ??? Codeine Other (See comments) and Vomiting Reaction: RASH;, ??? Hydrocodone Vomiting ??? Penicillin Other (See comments) Reaction: UNKNOWN, Current Facility-Administered Medications Medication Dose Route Frequency Provider Last Rate Last Admin ??? acetaminophen (TYLENOL) tablet 1,000 mg 1,000 mg oral Q6H [facility] Terri Orona MD 1,000 mg at 01/12/21 0540 ??? aspirin enteric coated tablet 81 mg 81 mg oral Daily Terri Orona MD 81 mg at 01/12/21 0935 ??? atorvastatin (LIPITOR) tablet 40 mg 40 mg oral Nightly Mitchell De Anda MD 40 mg at 01/11/211999 ??? bisacodyL (DULCOLAX) suppository 10 mg 10 mg rectal Daily Amber Atwood NP ??? buPROPion XL (WELLBUTRIN XL) 24 hour tablet 300 mg 300 mg oral QAM Terri Orona MD 300 mg at 01/12/2135 ??? famotidine (PEPCID) tablet 40 mg 40 mg oral Daily Terri Orona MD 40 mg at 01/12/2135 ??? heparin 1,000 unit/mL injection 2,000 Units 2,000 Units intravenous Q6H PRN Terri Orona MD Or ??? heparin 1,000 unit/mL injection 3,000 Units 3,000 Units intravenous Q6H PRN Terri Orona MD ??? heparin in 0.45% sodium chloride 25,000 units/250 mL (100 units/mL) infusion (premix) 0-33 Units/kg/hr intravenous Titrated Terri Orona MD 15.5 mL/hr at 01/12/21 0959 19 Units/kg/hr at ??? isosorbide mononitrate ER (IMDUR) extended release tablet 30 mg 30 mg oral Daily Terri Orona MD 30 mg at 01/12/21 0936 ??? loratadine (CLARITIN) tablet 10 mg 10 mg oral Daily Terri Orona MD 10 mg at 01/12/21935 ??? [Held by Provider] losartan (COZAAR) tablet 50 mg 50 mg oral Daily Terri Orona MD ??? metoprolol tartrate (LOPRESSOR) immediate release tablet 50 mg 50 mg oral BID Terri Orona MD 50 mg at 01/12/21 0935 ??? ondansetron (ZOFRAN) injection 4 mg 4 mg intravenous Q4H PRN Eva Reina NP ??? oxyCODONE (ROXICODONE) tablet 5 mg 5 mg oral Q4H PRN Terri Orona MD 5 mg at 01/11/21 1131 ??? pantoprazole DR (PROTONIX) extended release tablet 40 mg 40 mg oral Daily Terri Orona MD 40 mg at 01/12/21 0935 ??? polyethylene glycol (MIRALAX) packet 17 g 17 g oral Daily Amber Atwood NP ??? prochlorperazine (COMPAZINE) injection 5 mg 5 mg intravenous Q6H PRN Eva Reina NP 5 mg at 01/11/21 1722 ??? senna-docusate (PERICOLACE) 8.6-50 mg per tablet 1 tablet 1 tablet oral BID PRN Terri Orona MD ??? senna-docusate (PERICOLACE) 8.6-50 mg per tablet 1 tablet 1 tablet oral BID Amber Atwood, BRIT ??? sodium chloride 0.9% flush 0.5-20 mL 0.5-20 mL intra-catheter Q8H NICK Terri Orona MD 10 mL at1 0541 ??? sodium chloride 0.9% flush 0.5-20 mL 0.5-20 mL intra-catheter PRN Terri Orona MD ??? sodium chloride 0.9% infusion 75 mL/hr intravenous Continuous Terri Orona MD 75 mL/hr at 01/12/21 0535 75 mL/hr at 01/12/21 0535 ??? [Held by Provider] spironolactone (ALDACTONE) tablet 25 mg 25 mg oral Daily Terri Orona MD Objective Vitals: 24hr Min/Max: Temp Min: 36.5 ??C (97.7 ??F) Max: 37.4 ??C (99.3 ??F) Pulse Min: 88 Max: 108 BP Min: 101/59 Max: 140/84 Resp Min: 18 Max: 20 SpO2 Min: 91 % Max: 99 % Most Recent : Vitals: 01/12/21 0840 BP: 132/62 Pulse: 88 Resp: 18 Temp: 36.6 ??C (97.9 ??F) SpO2: 92% I/O last 2 completed shifts: In: - Out: 500 [Urine:500] No intake/output data recorded. Physical Exam: General appearance: appears stated age Constitutional: No acute distress Eyes: EOMI, anicteric Cardiovascular: regular rate, regular rhythm Right Femoral: Palp Right DP: palp Right PT: palp Left Femoral: palp Left DP: palp Left PT: palp Respiratory: non-labored breathing Skin: without ulceration GI: Soft, non-tender; non-distended. No guarding, no rigidity. Reports continued L back pain, but there is no tenderness Muskuloskeletal: Extremities wwp Neuro: Alert and oriented x4, non-focal Lab/Radiology/Diagnostic Review: Laboratory review: Lab results in the last 12 hours: Recent Results (from the past 12 hour(s)) aPTT Collection Time: 01/12/21 1:59 AM Result Value Ref Range aPTT 70 (H) 27 - 37 sec Assessment/Plan 55F with HTN, HLD, hx of Hodgkin's lymphoma s/p chest XRT 1992, NICM (EF 51% in 11/2020), recent COVID-19 (12/29/20) presents with LUQ pain. OSH CT PE protocol shows dissection vs thrombus in descending thoracic aorta and associated splenic infarct. Palpable femoral, radial pulses, bilateral DP/PT multiphasic. Sensorimotor intact in all 4 extremities. Repeat CTA with decrease in size of aortic clot as well as a splenic infarct - continue heparin drip - continue clears - bowel regimen - q4h nv checks - will plan for repeat CTA chest AIF tomorrow Jaziel Barnes MD Vascular Surgery [phone] Cosigned by Mitchell De Anda MD at 2021 10:26 AM CDT * Gabbi Malin MD - 01/11/2021 2:34 PM CDT Vascular Surgery Daily Progress Patient Name/MRN: Myles Sauceda [id number] Treatment Team: Vascular Surgery Surgery- Attending: Mitchell De Anda MD Today's Date: 01/11/2021 Room/Bed: [address]/[facility] Admit Date: 01/10/2021 Code Status: Prior Subjective Chief complaint: aortic thrombus Events Over Last 24 Hours: No acute events overnight. Still having back pain, unchanged. Some nausea, no belly pain. Allergies Allergen Reactions ??? Codeine Other (See comments) and Vomiting Reaction: RASH;, ??? Hydrocodone Vomiting ??? Penicillin Other (See comments) Reaction: UNKNOWN, Current Facility-Administered Medications Medication Dose Route Frequency Provider Last Rate Last Admin ??? aspirin enteric coated tablet 81 mg 81 mg oral Daily Terri Orona MD 81 mg at 01/11/21 1130 ??? atorvastatin (LIPITOR) tablet 10 mg 10 mg oral Nightly Terri Orona MD ??? buPROPion XL (WELLBUTRIN XL) 24 hour tablet 300 mg 300 mg oral QAM Terri Orona MD 300 mg at 01/11/21 1130 ??? heparin 1,000 unit/mL injection 2,000 Units 2,000 Units intravenous Q6H PRN Cisco Hernandez MD Or ??? heparin 1,000 unit/mL injection 3,000 Units 3,000 Units intravenous Q6H PRN Cisco Hernandez MD ??? heparin in 0.45% sodium chloride 25,000 units/250 mL (100 units/mL) infusion (premix) 0-33 Units/kg/hr intravenous Titrated Cisco Hernandez MD 15.5 mL/hr at 01/11/21 1219 19 Units/kg/hrat 01/11/21 1219 ??? isosorbide mononitrate ER (IMDUR) extended release tablet 30 mg 30 mg oral Daily Terri Orona MD 30 mg at 01/11/21 1131 ??? metoprolol tartrate (LOPRESSOR) immediate release tablet 50 mg 50 mg oral BID Terri Orona MD 50 mg at 01/11/21 1130 ??? ondansetron ODT (ZOFRAN-ODT) disintegrating tablet 4 mg 4 mg oral Q4H PRN Sly Alanis MD ??? oxyCODONE (ROXICODONE) tablet 5 mg 5 mg oral Q4H PRN Terri Orona MD 5 mg at 01/11/21 1131 Current Outpatient Medications Medication Sig Dispense Refill ??? aspirin 81 [...] ) 90 tablet 1 ??? dapagliflozin (FARXIGA) 10 mg tablet Take 1 tablet (10 mg total) by mouth daily 90 tablet 3 ??? ergocalciferol (VITAMIN D) 50,000 unit capsule Take 1 capsule (50,000 Units total) by mouth once a week fridays 12 capsule 1 ??? famotidine (PEPCID) 40 mg tablet Take 1 tablet (40 mg total) by mouth daily 30 tablet 11 ??? fluticasone (CHILDREN'S FLONASE ALLERGY RLF) 50 mcg/actuation nasal spray Administer 1 spray into each nostril daily as needed ??? fluticasone propionate (FLONASE) 50 mcg/actuation nasal spray Administer 2 sprays into each nostril daily 16 g 11 ??? isosorbide mononitrate ER (IMDUR) 30 [...] BY MOUTH EVERY DAY 90 tablet 1 ??? spironolactone (ALDACTONE) 25 mg tablet Take 1 tablet (25 mg total) by mouth daily 90 tablet 3 Objective Vitals: 24hr Min/Max: Temp Min: 36.7 ??C (98 ??F) Max: 36.9 ??C (98.5 ??F) Pulse Min: 89 Max: 144 BP Min: 93/56 Max: 168/83 Resp Min: 17 Max: 35 SpO2 Min: 91 % Max: 100 % Most Recent : Vitals: 01/11/21 1415 BP: 112/49 Pulse: 96 Resp: 18 Temp: SpO2: 97% I/O last 2 completed shifts: In: 1000 [IV Piggyback:1000] Out: - No intake/output data recorded. Physical Exam: General appearance: appears stated age Constitutional: No acute distress Eyes: EOMI, anicteric Cardiovascular: regular rate, regular rhythm Right Femoral: Palp Right DP: palp Right PT: palp Left Femoral: palp Left DP: palp Left PT: palp Respiratory: non-labored breathing Skin: without ulceration GI: Soft, non-tender; non-distended. No guarding, no rigidity. Reports continued L back pain, but there is no tenderness Muskuloskeletal: Extremities wwp Neuro: Alert and oriented x4, non-focal Lab/Radiology/Diagnostic Review: Laboratory review: Lab results in the last 12 hours: Recent Results (from the past 12 hour(s)) aPTT Collection Time: 01/11/21 4:19 AM Result Value Ref Range aPTT 60 (H) 27 - 37 sec aPTT Collection Time: 01/11/21 11:35 AM Result Value Ref Range aPTT 53 (H) 27 - 37 sec Assessment/Plan 55F with HTN, HLD, hx of Hodgkin's lymphoma s/p chest XRT 1992, NICM (EF 51% in 11/2020), recent COVID-19 (12/29/20) presents with LUQ pain. OSH CT PE protocol shows dissection vs thrombus in descending thoracic aorta and associated splenic infarct. Palpable femoral, radial pulses, bilateral DP/PT multiphasic. Sensorimotor intact in all 4 extremities. Repeat CTA with decrease in size of aortic clot as well as a splenic infarct - Continue heparin drip - Ok for clears - Pain and nausea control (ok for toradol - q4h nv checks - Will likely need repeat CT scan this weekend Gabbi Malin MD Vascular and Endovascular Fellow [phone] (c) [phone] (p) Cosigned by Mitchell De Anda MD at 2021 10:26 AM CDT documented in this encounter Procedure Notes * Tania Nichols, ESAU - 01/13/2021 3:48 PM CDT Vascular Access Nurse: Procedure Note Summary of treatment provided to patient today is as follows : . Vascular Access Documentation (last 4 hours) [facility] Additional Procedures Row Name 01/13/21 1546 Procedures Line Type Peripheral -JH Time in 0 -JH Time out 1544 -JH Time Calculation (min) 15 min -JH Peripheral IV 01/10/21 18 G Left External Jugular IV Properties Placement Date: 01/10/21 -AH Placement Time: 2128 -AH Size (Gauge): 18 G -AH LocationOrientation: Left -AH Location: External Jugular -AH Site Prep: Chlorhexidine -AH Peripheral IV 01/13/21 20 G Anterior;Left;Proximal Forearm IV Properties Placement Date: 01/13/21 -JH Placement Time: 1546 -JH Type: Angiocath -JH Size (Gauge): 20 G -JH, introcan safety needle Location Orientation: Anterior;Left;Proximal -JH Location: Forearm -JH Site Prep: Chlorhexidine -JH Local Anesthetic: None - Technique: Ultrasound guidance -JH Inserted by: gissell mascorro rn - Insertion attempts: 1 -JH Site Assessment Clean and dry -JH IV Line Status Single Blood return noted;Flushes easily;Saline locked - Dressing Type Transparent - Dressing Status New - User Coats (r) = Recorded By, (t) = Taken By, (c) = Cosigned By Initials Name Tania Cross RN Elissa Javier RN Plan: Follow up Tania Nichols RN documented in this encounter Consult Notes * Terri Orona MD - 01/10/2021 10:46 PM CDT Vascular Surgery History and Physical - Consult Note Admission Date: 01/10/2021 Myles Sauceda is a 55 y.o. female with chief complaint of LUQ pain. HPI: 55 yoF with hx of HTN, HLD, hx of Hodgkin's lymphoma s/p chest XRT 1992, NICM (ED 51% in 11/2020), and recent COVID-19 infection (12/29/20) presents with LUQ pain x1 day. Pain started while she was atrest. Denies any inciting trauma. Radiates to L back and behind L ribs. Pain was constant and got progressively worse throughout the day, prompting her to visit OSH ED this evening. There, was hypertensive to SBPs and tachycardic to 110s. CT PE protocol demonstrated a dissection flap vs thrombus inthe descending aorta just distal to the aortic isthmus, and a large exophytic mass off the spleen c/f for infarct vs growth. Labs notable for Cre 0.66, WBC 12.6, Hgb 12.5, INR 1.2. Transferred to [facility] for further management by Vascular Surgery. Here, her vitals are notable for HR 96, BP 119/78, satting 96% on room air. States that LUQ pain ismuch improved after getting pain medication. Denies chest pain, nausea, emesis, abdominal pain elsewhere, upper back pain, pain or numbness in hands and feet. For the last day, states that she cannotfeel urinary bladder distension and cannot tell if she has to urinate or not, but denies being incontinent of urine. From a COVID infection standpoint, her cough and shortness of breath is much improved. Was bedboundduring the acute infection, but has been feeling better over the last week. Brother has a hx of DVTs. She does not have a personal history of clots. Only takes aspirin, no blood thinners PSH includes cholecystectomy and umbilica hernia repair, and shoulder surgeries. The following conditions are considered present on admission and being treated, or evaluated. Peripheral Vascular Disease: aortic thrombus vs dissection Past Medical History: Diagnosis Date ??? CHF (congestive heart failure) (CMS/HCC) (HCC) ??? Hodgkin lymphoma (HCC) 09/09/2016 ??? Hypertension No past surgical history on file. HOME MEDICATIONS : aspirin 81 mg tablet atorvastatin (LIPITOR) 10 mg tablet buPROPion XL (WELLBUTRIN XL) 300 mg 24 hr tablet dapagliflozin (FARXIGA) 10 mg tablet ergocalciferol (VITAMIN D) 50,000 unit capsule famotidine (PEPCID) 40 mg tablet fluticasone (CHILDREN'S FLONASE ALLERGY RLF) 50 mcg/actuation nasal spray fluticasone propionate (FLONASE) 50 mcg/actuation nasal spray isosorbide mononitrate ER (IMDUR) 30 mg 24 hr tablet loratadine (CLARITIN) 10 mg tablet losartan (COZAAR) 50 mg tablet metoprolol XL (TOPROL-XL) 100 mg 24 hr tablet ondansetron (Zofran) [address] (PROTONIX) 40 mg EC tablet spironolactone (ALDACTONE) 25 mg tablet Allergies Allergen Reactions ??? Codeine Other (See comments) and Vomiting Reaction: RASH;, ??? Hydrocodone Vomiting ??? Penicillin Other (See comments) Reaction: UNKNOWN, Social History Tobacco Use ??? Smoking status: Former Smoker Packs/day: 0.50 Years: 10.00 Pack years: 5.00 Types: Cigarettes Quit date: 2000 Years since quittin.8 ??? Smokeless tobacco: Never Used Substance Use Topics ??? Alcohol use: No Family History Problem Relation Age of Onset ??? Hypertension Mother ??? Hyperlipidemia Mother ??? Hypertension Father ??? Hyperlipidemia Father ??? Diabetes Father Review of Systems: Must be review of 10 systems Review of Systems Constitutional: Negative for chills and fever. HENT: Negative for congestion and sore throat. Respiratory: Negative for cough and shortness of breath. Cardiovascular: Negative for chest pain and leg swelling. Gastrointestinal: Positive for abdominal pain and constipation. Negative for blood in stool, nauseaand vomiting. Genitourinary: Positive for difficulty urinating. Negative for dysuria. Musculoskeletal: Positive for back pain. Skin: Negative for rash and wound. Neurological: Negative for light-headedness and headaches. Psychiatric/Behavioral: Negative for agitation and confusion. Vitals: Arrival Vitals [01/10/212224] Temp 36.9 ??C (98.5 ??F) Pulse 96 Resp 23 BP 119/78 SpO2 97 % Temp src Oral Heart Rate Source Patient Position BP Location FiO2 (%) Most Recent : Vitals: 01/10/212224 BP: 119/78 Pulse: 96 Resp: 23 Temp: 36.9 ??C (98.5 ??F) SpO2: 97% Objective Physical exam: Must include at least two elements each from 9 organ systems for a comprehensive exam Physical Exam Vitals reviewed. Constitutional: General: She is not in acute distress. Appearance: She is well-developed. She is not ill-appearing. HENT: Head: Normocephalic and atraumatic. Mouth/Throat: Mouth: Mucous membranes are moist. Pharynx: Oropharynx is clear. Cardiovascular: Rate and Rhythm: Normal rate and regular rhythm. Pulses: Normal pulses. Heart sounds: Normal heart sounds. Comments: Bilateral radial and femoral pulses palpable Bilateral DP and PT pulses multiphasic on Doppler Pulmonary: Effort: Pulmonary effort is normal. Breath sounds: Normal breath sounds. Abdominal: General: Abdomen is flat. Palpations: Abdomen is soft. Tenderness: There is no abdominal tenderness. Musculoskeletal: General: No swelling or tenderness. Cervical back: Normal range of motion and neck supple. Skin: General: Skin is warm and dry. Capillary Refill: Capillary refill takes less than 2 seconds. Neurological: General: No focal deficit present. Mental Status: She is alert and oriented to person, place, and time. Sensory: No sensory deficit. Motor: No weakness. Psychiatric: Mood and Affect: Mood normal. Behavior: Behavior normal. Lab/Radiology/Diagnostic Review: Lab results in the last 24 hours: Recent Results (from the past 24 hour(s)) Urinalysis reflex to microscopic and culture Urine Collection Time: 01/10/21 2:14 PM Specimen: Urine Result Value Ref Range Color, ur Yellow Yellow Clarity, ur Turbid (A) Clear Specific gravity, ur 1.029 1.003 - 1.030 pH, urine 6.0 Protein, ur ql 1+ (A) Negative Glucose, ur ql 2+ (A) Negative Ketones, ur Negative Negative Bilirubin, ur Negative Negative Blood, ur Trace (A) Negative Urobilinogen, ur <2.0 <2.0 mg/dL Nitrite, ur Negative Negative Leukocyte esterase, ur Negative Negative UA reflex comment Reflex to microscopic UA will be performed. Urinalysis, microscopic only Collection Time: 01/10/21 2:14 PM Result Value Ref Range WBC, ur 6-10 (A) 0 - 5 /HPF RBC, ur 3-5 (A) 0 - 2 /HPF Epithelial cells, squamous, ur 1-5 0 - 5 /HPF Mucous, ur Present (A) Hyaline casts, ur 11-20 (A) 0 - 10 /LPF Culture Reflex Comment Reflex conditions for urine culture (WBC >10) not met. Comprehensive metabolic panel Collection Time: 01/10/21 2:58 PM Result Value Ref Range Sodium 140 135 - 145 mmol/L Potassium, pl 3.2 (L) 3.3 - 4.9 mmol/L Chloride 106 97 - 110 mmol/L CO2 21 (L) 22 - 32 mmol/L Anion gap 13 2 - 15 mmol/L BUN 8 8 - 25 mg/dL Creatinine 0.66 0.60 - 1.10 mg/dL Glucose 133 70 - 199 mg/dL Calcium 9.3 8.5 - 10.3 mg/dL Bilirubin, total 0.3 0.1 - 1.2 mg/dL Protein, pl 7.3 6.5 - 8.5 g/dL Albumin 3.8 3.5 - 5.0 g/dL Alk phos 80 40 - 130 Units/L ALT 26 7 - 45 Units/L AST 14 10 - 45 Units/L CBC with auto differential Collection Time: 01/10/21 2:58 PM Result Value Ref Range WBC 12.6 (H) 3.8 - 9.9 K/cumm Hgb 12.5 11.9 - 15.5 g/dL Hct 37.7 35.6 - 45.5 % Plt 466 (H) 150 - 400 K/cumm MPV 8.8 (L) 9.1 - 12.3 fL RBC 4.41 3.90 - 5.20 M/cumm MCV 85.5 81.3 - 96.4 fL MCH 28.3 27.1 - 33.3 pg MCHC 33.2 32.3 - 35.7 g/dL RDW CV 13.0 11.1 - 14.9 % RDW SD 40.4 35.7 - 48.1 fL NRBC abs 0.00 0.00 - 0.01 K/cumm Lipase Collection Time: 01/10/21 2:58 PM Result Value Ref Range Lipase 23 10 - 99 Units/L Differential, auto Collection Time: 01/10/21 2:58 PM Result Value Ref Range Neutrophil abs 8.5 (H) 1.7 - 6.5 K/cumm Imm gran abs 0.1 0.0 - 0.1 K/cumm Lymphocyte abs 3.0 0.8 - 3.3 K/cumm Monocyte abs 0.9 (H) 0.2 - 0.8 K/cumm Eosinophil abs 0.0 0.0 - 0.5 K/cumm Basophil abs 0.1 0.0 - 0.1 K/cumm Neutrophil pct 67.8 % Imm gran pct 0.5 % Lymphocyte pct 23.9 % Monocyte pct 7.2 % Eosinophil pct 0.2 % Basophil pct 0.4 % eGFR Collection Time: 01/10/21 2:58 PM Result Value Ref Range eGFR 99 mL/min/1.73 m2 D-dimer, quantitative Collection Time: 01/10/21 6:45 PM Result Value Ref Range D-Dimer 5,100 (H) <=499 ng/mL FEU CRP (acute phase) Collection Time: 01/10/21 6:45 PM Result Value Ref Range CRP 19.0 (H) <=10.0 mg/L Pro B-type natriuretic peptide Collection Time: 01/10/21 6:45 PM Result Value Ref Range NT-proBNP 213 <=300 pg/mL CBC without differential Collection Time: 01/10/21 6:45 PM Result Value Ref Range WBC 13.5 (H) 3.8 - 9.9 K/cumm Hgb 11.6 (L) 11.9 - 15.5 g/dL Hct 35.3 (L) 35.6 - 45.5 % Plt 438 (H) 150 - 400 K/cumm MPV 9.3 9.1 - 12.3 fL RBC 4.08 3.90 - 5.20 M/cumm MCV 86.5 81.3 - 96.4 fL MCH 28.4 27.1 - 33.3 pg MCHC 32.9 32.3 - 35.7 g/dL RDW CV 13.2 11.1 - 14.9 % RDW SD 40.8 35.7 - 48.1 fL NRBC abs 0.00 0.00 - 0.01 K/cumm Protime-INR Collection Time: 01/10/21 6:45 PM Result Value Ref Range PT 13.6 9.5 - 13.6 sec INR 1.2 0.9 - 1.2 aPTT Collection Time: 01/10/21 6:45 PM Result Value Ref Range aPTT 31 27 - 37 sec , Chemistry CMP: No results found for: ALBUMIN, BUNSER, CALCIUM, CO2, CHLORIDE, CREATININE, GLUCOSE, POTASSIUM, SODIUM, BILITOT, PROTEIN, PROT, PROTSER, ALT, AST, GGT, ALKPHOS, CBC:No results found for: WBC, RBC, HGB, HCT, MCV, MCH, MCHC, RDW, RDWCV, RDWSD, MPV, NRBC, NRBCABS, NRBCPCT, Coags: No results found for: PT, PTT, APTT, FFN, FIBRINOGEN, INR, ACTIVATEDCL, Lipids: No results found for: CHOL, CHLPL, HDL, LDLCALC, TRIG, CHOLHDL, Cardiac Enzymes: No results found for: CKTOTAL, CKMB, CKMBINDEX, TROPONINT and POC Glucose: No results found for: GLUCOSE ECG 12 lead Fabrice Ludwig MD PhD 01/10/2021 10:27 PM ECG 12 lead Date/Time: 01/10/2021 10:27 PM Performed by: Fabrice Ludwig MD PhD Authorized by: Fabrice Ludwig MD PhD Comments: (22:21) sinus rhythm at 90 beats per minute; left axis deviation; left bundle branch block with secondary ST and T-wave abnormality. Abnormal EKG. Except for decreased rate, no significant change compared with May 20, 2020. CT Chest PE (CTA) Abdomen Pelvis W Contrast EXAM DESCRIPTION: CT CHEST PE (CTA) ABDOMEN [...] feel her bladder. She reports dark urine a h/o Hodgkin lymphoma, CHF, cardiomyopathy, HTN, HLD, and GERD TECHNIQUE: CT angiogram of the chest with routine abdomen and pelvis performed with intravenous and without oral contrast using helical scanning technique with dynamic intravenous contrast injection. Reconstructed coronal and sagittal MPR images reviewed. All images stored on PACS. 3D MIP images of the chest rendered on scanning unit and reviewed at time of interpretation. Automated exposure control was used as a dose optimization technique for this examination. CONTRAST TYPE/DOSE: 100mL of IOVERSOL 350 MG IODINE/ML INTRAVENOUS SYRINGE injected via intravenous COMPARISON: CT angiogram chest 05/21/2020 FINDINGS: CHEST CHEST VASCULATURE: Focal dissection flap of the proximal aspect of the descending thoracic aorta reference axial images 39 through 43. There is some adherent mural thrombus on the flat. The [...] fluid collections. Pancreatic duct not dilated. ADRENALS: Normal. KIDNEYS/URINARY TRACT: No identified significant cystic or solid masses. No visualized stones. No hydronephrosis or hydroureter. Symmetric enhancement. Urinary bladder is unremarkable. GI: No dilated bowel loops. No obvious wall thickening. Normal appendix. No significant diverticular disease. PERITONEUM: No ascites or free air. RETROPERITONEUM: No mass or adenopathy. REPRODUCTIVE: Anteverted uterus has an abnormal appearance with endometrial thickening, it measures 1.5 cm in thickness. There is endometrial enhancement as well. VASCULATURE ABDOMEN: No abdominal aortic aneurysm. MUSCULOSKELETAL ABDOMEN PELVIS: No acute finding. OTHER: No significant abnormality. IMPRESSION: Chest: 1. 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 2. Mild scattered round ground-glass opacities in the mid to lower lung smart, likely related to COVID-19. 3. No pulmonary embolism Abdomen pelvis: 4. Splenic infarct and bulbous configuration-mass of the anterior spleen which is similar to prior CT. 5. Hepatic steatosis 6. Endometrial thickening and enhancement which could reflect infection and or neoplasm. Recommend nonemergent follow-up with gynecology and pelvic ultrasound. Critical Result: As above The critical information above was relayed directly by me by telephone to Dr. Mckee on 01/10/2021 at 8:16 pm Central Time. THIS IS AN ELECTRONICALLY VERIFIED FINAL REPORT 01/10/2021 8:18 PM - Electronically signed by Yahaira Lopez M.D. : Report ID: [id number] Reading Location: [place] [address] Active Problems: No Active Problems: There are no active problems currently on the Problem List. Please update the Problem List and refresh. Assessment /Plan No new Assessment & Plan notes have been filed under this hospital service since the last note was generated. Service: Vascular Surgery 55F with HTN, HLD, hx of Hodgkin's lymphoma s/p chest XRT 1992, NICM (EF 51% in 11/2020), recent COVID-19 (12/29/20) presents with LUQ pain. OSH CT PE protocol shows dissection vs thrombus in descending thoracic aorta and associated splenic infarct. Here, HR 90s, SBP 120. LUQ pain improved. Palpablefemoral, radial pulses, bilateral DP/PT multiphasic. Sensorimotor intact in all 4 extremities. - Obtain CT dissection protocol - interval decrease in size of aortic thrombus, emboli to spleen, RIIA, and R profunda branch - Continue heparin gtt - Keep patient NPO - Resume home blood pressure medications, holding lisinopril and spironolactone (may restart if becomes hypertensive) - impulse control, SBP <120 - obtain TTE with bubble study - obtain BLE venous duplex study - admit vascular surgery [address] Terri Orona MD Vascular Surgery Cosigned by Mitchell De Anda MD at 01/11/2021 5:50 PM CDT Associated attestation - Mitchell De Anda MD - 01/11/2021 5:50 PM CDT STAFF PHYSICIAN NOTE OF PERSONAL INVOLVEMENT IN CARE COVID recovered presenting with LUQ pain. CT done showing aortic thrombus in zone 5 of aorta with embolism to spleen. No other embolisms. Unclear if paradoxic or COVID related thrombosis. Will plan for AC, Echo, DVT screen. If has another episode of embolism will cover the stent but most patients seem to be resolving well with AC/ASA/Statin. PLAN DISCUSSED WITH: patient See problem list. I have reviewed the documentation obtained and have reviewed and updated the problem list as appropriate. I have personally performed a face to face assessment of the patient and have personally participated in the coats components. I have discussed the case and management of the patient's care. STAFF PHYSICIAN: Mitchell De Anda MD DATE OF SERVICE: @DATE@ documented in this encounter ED Notes * Cisco Hernandez MD - 01/10/2021 11:40 PM CDT HPI Chief Complaint Patient presents with ??? Abdominal Pain Patient is a 55-year-old female with history of remote Hodgkin lymphoma status post radiation and chemotherapy, CHF, cardiomyopathy, hypertension hyperlipidemia, GERD who presents to the ED from outside hospital for evaluation of proximal descending aortic thrombus. Patient states that she initially presented to the outside hospital emergency department for evaluation of abdominal pain that started earlier during the day. Patient states that pain was located in left lower quadrant that radiatedup to her left upper quadrant, rated 10 out 10. She states that she was doing nothing at home when this had started. No exacerbating or alleviating factors at this time. CTA chest abdomen pelvis doneat outside hospital demonstrated focal dissection of proximal aspect of descending thoracic aorta with mural thrombus on dissection flap and splenic infarct and bulbous configuration-mass anterior spleen. She was started on heparin drip prior to arrival and was given opioid pain medications prior to arrival. Currently the pain is 3/10 on her abdomen. She denies any recent cough, fever, chills, nausea, vomiting, dysuria, diarrhea. Patient states that she was recently diagnosed with COVID and was recently bedbound due to her symptoms of malaise and fatigue. Patient denies tobacco use, EtOH use, illicit drug use HPI Patient History: Patient Active Problem List Diagnosis Date Noted ??? Allergic rhinitis 12/11/2020 ??? Prediabetes 11/22/2020 ??? Lesion of right ear 11/22/2020 ??? Grief at loss of child 11/22/2020 ??? LV dysfunction 10/28/2018 ??? LBBB (left bundle branch block) 10/28/2018 ??? Mixed hyperlipidemia 10/28/2018 ??? Chronic insomnia 10/28/2018 ??? Chronic systolic (congestive) heart failure (HCC) 07/22/2017 ??? Gastroesophageal reflux disease without esophagitis 07/22/2017 ??? Cardiomyopathy (HCC) 09/09/2016 ??? Hypertension 09/09/2016 ??? Snoring 09/09/2016 ??? Systolic dysfunction 09/09/2016 ??? Insomnia 09/09/2016 ??? Obesity with body mass index 30 or greater 07/31/2016 Past Medical History: Diagnosis Date ??? CHF (congestive heart failure) (CMS/HCC) (HCC) ??? Hodgkin lymphoma (HCC) 09/09/2016 ??? Hypertension No past surgical history on file. Family History Problem Relation Age of Onset [...] Social History Narrative ??? Not on file Review of Systems Review of Systems Constitutional: Negative for chills, diaphoresis, fatigue and fever. HENT: Negative for ear pain, rhinorrhea, sinus pain and sore throat. Eyes: Negative for pain, discharge and visual disturbance. Respiratory: Negative for cough, shortness of breath and wheezing. Cardiovascular: Negative for chest pain and palpitations. Gastrointestinal: Positive for abdominal pain. Negative for blood in stool, constipation, diarrhea,nausea and vomiting. Genitourinary: Negative for difficulty urinating, dysuria, flank pain and hematuria. Musculoskeletal: Negative for joint swelling. Skin: Negative for rash. Neurological: Negative for headaches. Physical Exam ED Triage Vitals [01/10/21 2225] Temp Pulse Resp BP SpO2 36.9 ??C (98.5 ??F) 96 23 119/78 97 % Temp src Heart Rate Source Patient Position BP Location FiO2 (%) Oral -- -- -- -- Physical Exam Constitutional: General: She is not in acute distress. Appearance: She is well-developed. She is not diaphoretic. HENT: Head: Normocephalic. Eyes: General: Right eye: No discharge. Left eye: No discharge. Conjunctiva/sclera: Conjunctivae normal. Pupils: Pupils are equal, round, and reactive to light. Cardiovascular: Rate and Rhythm: Normal rate and regular rhythm. Heart sounds: Normal heart sounds. No murmur heard. No friction rub. No gallop. Pulmonary: Effort: Pulmonary effort is normal. No respiratory distress. Breath sounds: Normal breath sounds. No wheezing. Abdominal: General: Bowel sounds are normal. Palpations: Abdomen is soft. Tenderness: There is abdominal tenderness in the left upper quadrant and left lower quadrant. Thereis no right CVA tenderness, left CVA tenderness, guarding or rebound. Musculoskeletal: General: Normal range of motion. Skin: General: Skin is warm and dry. Neurological: Mental Status: She is alert and oriented to person, place, and time. Psychiatric: Thought Content: Thought content normal. Judgment: Judgment normal. MDM Medical Decision Making Differential Diagnosis or Management Options: Patient is a 55-year-old female with history of remote Hodgkin lymphoma status post radiation and chemotherapy, CHF, cardiomyopathy, hypertension hyperlipidemia, GERD who presents to the ED from outside hospital for evaluation of proximal descending aortic thrombus. Vascular surgery was present in the evaluation room during initial evaluation here. The current plan will be to repeat labs here, repeat CT chest abdomen pelvis dissection protocol. Vascular surgery agrees to continue heparin drip, and patient will likely be admitted to their service. Attending Summary of Care ED Course as of Jan 11 2340 Time: 01/11 2252 Comment: Vascular surgery aware, they will staff with attending, request repeat CTA dissection protocol. Likely admission to their service, pending staffing with attending By: Cisco Hrenandez MD Aortic thrombus ([facility]) ([facility]) Cisco Hernandez MD Resident 01/10/21 3087 Cosigned by Fabrice Ludwig MD PhD at 2021 7:24 AM CDT Associated attestation - Fabrice Ludwig MD PhD - 2021 7:24 AM CDT ED Attestation I have seen and examined the patient (10Jan2021). I reviewed the resident's note and agree with thefindings and plan of care as documented in the resident's note unless I have documented otherwise. * Chelly Correa RN - 01/10/2021 10:32 PM CDT Bed: [facility] Expected date: 01/10/21 Expected time: 9:16 PM Means of arrival: Ambulance Comments: Chelly Correa RN 01/10/212231 * Chelly Correa RN - 01/10/2021 10:26 PM CDT Pt bibems from [facility] for what they believed to be aortic dissection, potentially an embolism. Pt originally arrived to [facility] w/ LUQ pain radiating to back & ribs. Pt given 50mcgfentanyl before leaving OSH. Pt arrived on heparin 18unit/kg/hr, continued at this time. Pt was dx w/ covid 3 weeks ago, pt has residual cough & fatigue, no worse, though * Fabrice Ludwig MD PhD - 01/10/2021 10:25 PM CDT ATTENDING NOTE 55-year-old past medical history of Hodgkin's lymphoma (previously treated with radiation and chemotherapy, resultant occult scarring?? and cardiomyopathy/CHF, hypertension, dyslipidemia, reflux. Presents to the ED complaining of epigastric left upper quadrant pain that began on the morning prior to presentation. No identified provocation. Radiates minimally superiorly. Denies shortness of breath, nausea. No recent, antecedent change in medications. Notes that she had COVID infection approximately 2 weeks ago was bedbound for almost 2 weeks. Notes minimal residual cough but no shortness of breath. No ongoing fever. Denies GI symptoms. Previous abdominal surgeries include cholecystectomyand umbilical hernia repair shortly thereafter. At outside hospital concern raised for possible aortic flap with thrombus as well as evident both deformity of spleen that had previously been noted innew evident splenic infarct. Concern for thrombus and resultant emboli, for which heparin was started and patient was transferred to ED for vascular surgery involvement. Patient continues to have mild discomfort and upper abdomen but denies any other symptoms. PHYSICAL EXAMINATION: Heart rate 100, otherwise normal vital signs. No distress. Lungs clear. Heartregular without appreciable extra heart sounds. Minimal tenderness distal left of midline in epigastric and left upper quadrant part of abdomen but benign abdominal exam elsewhere. Soft abdomen. No lower extremity edema. Intact pedal pulses. ASSESSMENT/PLAN: Patient's prothrombotic circumstances include recent immobilization because of ???infection, COVID infection self, and known radiation damage to mediastinal structures. Will continueheparin. Vascular surgery has seen patient and advised repeat aortic dissection protocol. Monitor hemodynamic status. Anticipate admission to vascular surgery service. Fabrice Ludwig MD PhD 01/10/212250 documented in this encounter Miscellaneous Notes * Assessment & Plan Note - Amber Atwood NP - 01/15/2021 9:51 AM CDT Associated Problem(s): Hypokalemia (Resolved 08/27/2021) Patient with hypokalemia this admission -Potassium replaced -PCP follow-up at discharge for BMP check * Assessment & Plan Note - Amber Atwood NP - 01/15/2021 9:37 AM CDT Associated Problem(s): COVID-19 virus infection (Resolved 08/27/2021) Presented with recent COVID-19 infection (12/29/20) -Remained in COVID unit throughout this admission * Assessment & Plan Note - Amber Atwood NP - 01/15/2021 9:25 AM CDT Associated Problem(s): Hypertension -Home regimen: Losartan 50mg daily, Metoprolol 100mg daily, Isosorbide 30mg daily and Spironolactone 25mg daily. -Held home Lisinopril and spironolactone while inpatient 2/2 normotension -Continue Metoprolol and Isosorbide -Q4 hrs VS * Plan of Care - Bryan Patten RN - 01/15/2021 9:19 AM CDT Problem: Health Behavior: Goal: Understanding of discharge needs will improve Outcome: Progressing Problem: Activity: Goal: Risk for activity intolerance will decrease Outcome: Progressing Problem: Lack of Knowledge: Goal: Knowledge of disease or condition will improve Outcome: Progressing Goal: Ability to state and carry out methods to decrease the pain will improve Outcome: Progressing Problem: Nutritional: Goal: Nutritional status will be supported Outcome: Progressing Problem: Fluid Volume: Goal: Maintenance of adequate hydration will improve Outcome: Progressing Problem: Health Behavior: Goal: Ability to state signs and symptoms to report to health care provider will improve Outcome: Progressing Problem: Physical Regulation: Goal: Complications related to the disease process, condition or treatment will be avoided or minimized Outcome: Progressing Goal: Ability to maintain clinical measurements within normal limits will improve Outcome: Progressing Problem: Sensory: Goal: Ability to identify factors that increase the pain will improve Outcome: Progressing Goal: Ability to notify healthcare provider of pain before it becomes unmanageable or unbearable will improve Outcome: Progressing Goal: Pain level will decrease Outcome: Progressing Goals: Clinical Goals for the Shift: monitor labs, neuro check, vital signs, lab collection, comfort and safety * Plan of Care - Ella Valdes - 01/15/2021 6:40 AM CDT Goals: Clinical Goals for the Shift: monitor labs, neuro check, vital signs, lab collection, comfort and safety Summary: Patient AOx4, on room air. IV cannula's on site with ongoing Heparin drip at 15.5 ml/hr. Vital signs taken and charted. Due medications given. APTT collected and 2213H- dose of heparin increased to 16.32 ml/hr based on the APTT level. 0552H- Heparin drip discontinued, clarified with MD Clark, as per her to be stopped once the Eloquis dose is given. Updated patient with the plan of care. Comfort and safety implemented. Problem: Health Behavior: Goal: Understanding of discharge needs will improve Outcome: Progressing Problem: Activity: Goal: Risk for activity intolerance will decrease Outcome: Progressing Problem: Lack of Knowledge: Goal: Knowledge of disease or condition will improve Outcome: Progressing Goal: Ability to state and carry out methods to decrease the pain will improve Outcome: Progressing Problem: Nutritional: Goal: Nutritional status will be supported Outcome: Progressing Problem: Fluid Volume: Goal: Maintenance of adequate hydration will improve Outcome: Progressing Problem: Health Behavior: Goal: Ability to state signs and symptoms to report to health care provider will improve Outcome: Progressing Problem: Physical Regulation: Goal: Complications related to the disease process, condition or treatment will be avoided or minimized Outcome: Progressing Goal: Ability to maintain clinical measurements within normal limits will improve Outcome: Progressing Problem: Sensory: Goal: Ability to identify factors that increase the pain will improve Outcome: Progressing Goal: Ability to notify healthcare provider of pain before it becomes unmanageable or unbearable will improve Outcome: Progressing Goal: Pain level will decrease Outcome: Progressing * Plan of Care - Bryan Patten RN - 01/14/2021 9:07 AM CDT Problem: Health Behavior: Goal: Understanding of discharge needs will improve Outcome: Progressing Problem: Activity: Goal: Risk for activity intolerance will decrease Outcome: Progressing Problem: Lack of Knowledge: Goal: Knowledge of disease or condition will improve Outcome: Progressing Goal: Ability to state and carry out methods to decrease the pain will improve Outcome: Progressing Problem: Nutritional: Goal: Nutritional status will be supported Outcome: Progressing Problem: Fluid Volume: Goal: Maintenance of adequate hydration will improve Outcome: Progressing Problem: Health Behavior: Goal: Ability to state signs and symptoms to report to health care provider will improve Outcome: Progressing Problem: Physical Regulation: Goal: Complications related to the disease process, condition or treatment will be avoided or minimized Outcome: Progressing Goal: Ability to maintain clinical measurements within normal limits will improve Outcome: Progressing Problem: Sensory: Goal: Ability to identify factors that increase the pain will improve Outcome: Progressing Goal: Ability to notify healthcare provider of pain before it becomes unmanageable or unbearable will improve Outcome: Progressing Goal: Pain level will decrease Outcome: Progressing Goals: Clinical Goals for the Shift: Monitor VS, labs; thoracic medicine specialist; comfort and safety * Assessment & Plan Note - Amber Atwood NP - 01/14/2021 8:20 AM CDT Associated Problem(s): Left lower quadrant pain (Resolved 08/27/2021) Pt recent COVID-19 infection (12/29/20) presents with LUQ pain x 1 day, prompting her to visit OSH ED on 01/10/2021. CT PE protocol demonstrated a dissection flap vs thrombus in the descending aorta just distal to the aortic isthmus, and a large exophytic mass off the spleen concern for infarct vs g rowth. Patient was ransferred to [facility] ED for further management by Vascular Surgery. On arrival to the ED palpable femoral, radial pulses, bilateral DP/PT multiphasic. Sensorimotor intact in all 4 extremities. -The patient was continued on hep gtt -Repeat CTA (01/13/21) with decrease in size of aortic clot as well as a splenic infarct -Stopped Hep gtt this morning. Transitioned to PO Eliquis * Plan of Care - Rosamaria Miguel RN - 01/14/2021 5:27 AM CDT Goals: Clinical Goals for the Shift: Monitor VS, labs; thoracic medicine specialist; comfort and safety Summary: Pt A&Ox4, VSS, NAD overnight. Medications administered and labs drawn as ordered. Pt c/o 2/10 abdominal pain. She was able to get relief with scheduled tylenol. No falls or unsafe behaviors noted. Heparin gtt continued. She is currently resting in bed, call light and personal belongings in reach. Problem: Health Behavior: Goal: Understanding of discharge needs will improve Outcome: Progressing Problem: Activity: Goal: Risk for activity intolerance will decrease Outcome: Progressing Problem: Lack of Knowledge: Goal: Knowledge of disease or condition will improve Outcome: Progressing Goal: Ability to state and carry out methods to decrease the pain will improve Outcome: Progressing Problem: Nutritional: Goal: Nutritional status will be supported Outcome: Progressing Problem: Fluid Volume: Goal: Maintenance of adequate hydration will improve Outcome: Progressing Problem: Health Behavior: Goal: Ability to state signs and symptoms to report to health care provider will improve Outcome: Progressing Problem: Physical Regulation: Goal: Complications related to the disease process, condition or treatment will be avoided or minimized Outcome: Progressing Goal: Ability to maintain clinical measurements within normal limits will improve Outcome: Progressing Problem: Sensory: Goal: Ability to identify factors that increase the pain will improve Outcome: Progressing Goal: Ability to notify healthcare provider of pain before it becomes unmanageable or unbearable will improve Outcome: Progressing Goal: Pain level will decrease Outcome: Progressing * Plan of Care - Nishabhavesh Sakshi - 01/13/2021 3:29 PM CDT Problem: Health Behavior: Goal: Understanding of discharge needs will improve Outcome: Progressing Problem: Activity: Goal: Risk for activity intolerance will decrease Outcome: Progressing Problem: Lack of Knowledge: Goal: Knowledge of disease or condition will improve Outcome: Progressing Goal: Ability to state and carry out methods to decrease the pain will improve Outcome: Progressing Problem: Nutritional: Goal: Nutritional status will be supported Outcome: Progressing Problem: Fluid Volume: Goal: Maintenance of adequate hydration will improve Outcome: Progressing Problem: Health Behavior: Goal: Ability to state signs and symptoms to report to health care provider will improve Outcome: Progressing Problem: Physical Regulation: Goal: Complications related to the disease process, condition or treatment will be avoided or minimized Outcome: Progressing Goal: Ability to maintain clinical measurements within normal limits will improve Outcome: Progressing Problem: Sensory: Goal: Ability to identify factors that increase the pain will improve Outcome: Progressing Goal: Ability to notify healthcare provider of pain before it becomes unmanageable or unbearable will improve Outcome: Progressing Goal: Pain level will decrease Outcome: Progressing Goals: Clinical Goals for the Shift: VS, meds, comfort and safety, pain management Summary: Patient is resting in bed, denies pain. Patient complained of nausea and was managed with prn antiemetic and verbalized relief. CT was ordered for patient but will need a peripheral IV for the procedure. Tried placing IV but failed; vascular consult was done; IV therapy placed a new PIV. CT was completed today. Patient's VSS throughout the shift. Comfort and safety measures done. Patient remained free from fall and injury as of this time. * Plan of Care - Sakshi Saleh - 01/12/2021 4:55 PM CDT Problem: Health Behavior: Goal: Understanding of discharge needs will improve Outcome: Progressing Problem: Activity: Goal: Risk for activity intolerance will decrease Outcome: Progressing Problem: Lack of Knowledge: Goal: Knowledge of disease or condition will improve Outcome: Progressing Goal: Ability to state and carry out methods to decrease the pain will improve Outcome: Progressing Problem: Nutritional: Goal: Nutritional status will be supported Outcome: Progressing Problem: Fluid Volume: Goal: Maintenance of adequate hydration will improve Outcome: Progressing Problem: Health Behavior: Goal: Ability to state signs and symptoms to report to health care provider will improve Outcome: Progressing Problem: Physical Regulation: Goal: Complications related to the disease process, condition or treatment will be avoided or minimized Outcome: Progressing Goal: Ability to maintain clinical measurements within normal limits will improve Outcome: Progressing Problem: Sensory: Goal: Ability to identify factors that increase the pain will improve Outcome: Progressing Goal: Ability to notify healthcare provider of pain before it becomes unmanageable or unbearable will improve Outcome: Progressing Goal: Pain level will decrease Outcome: Progressing Goals: Clinical Goals for the Shift: VS, meds, comfort and safety, pain management Summary: Patient is resting comfortably in bed. She has pain in the abdomen but she declines takingprn pain meds. Comfort and safety measures provided. VSS throughout the shift. Due meds were taken.Stool softener were taken but she refused the suppository; still no bowel movement as of this writing. She is able to ambulate around the room; tolerated well. Patient remained free from fall and injury as of this time. * Plan of Care - Deni Brooke RN - 01/12/2021 6:16 AM CDT Goals: Summary: oxygenation maintained on room air, heparin protocol continued with 2 therapeutic PTTs, planned care for the shift completed, patients' safety and comfort maintained. Problem: Health Behavior: Goal: Understanding of discharge needs will improve Outcome: Progressing Problem: Activity: Goal: Risk for activity intolerance will decrease Outcome: Progressing Problem: Lack of Knowledge: Goal: Knowledge of disease or condition will improve Outcome: Progressing Goal: Ability to state and carry out methods to decrease the pain will improve Outcome: Progressing Problem: Nutritional: Goal: Nutritional status will be supported Outcome: Progressing Problem: Fluid Volume: Goal: Maintenance of adequate hydration will improve Outcome: Progressing Problem: Health Behavior: Goal: Ability to state signs and symptoms to report to health care provider will improve Outcome: Progressing Problem: Physical Regulation: Goal: Complications related to the disease process, condition or treatment will be avoided or minimized Outcome: Progressing Goal: Ability to maintain clinical measurements within normal limits will improve Outcome: Progressing Problem: Sensory: Goal: Ability to identify factors that increase the pain will improve Outcome: Progressing Goal: Ability to notify healthcare provider of pain before it becomes unmanageable or unbearable will improve Outcome: Progressing Goal: Pain level will decrease Outcome: Progressing * Plan of Care - Noemy Patten RN - 01/11/2021 6:46 PM CDT Problem: Health Behavior: Goal: Understanding of discharge needs will improve 01/11/[id number] by Noemy Patten RN Outcome: Progressing 01/11/[id number] by Noemy Patten RN Outcome: Progressing Problem: Activity: Goal: Risk for activity intolerance will decrease Outcome: Progressing Problem: Lack of Knowledge: Goal: Knowledge of disease or condition will improve Outcome: Progressing Goal: Ability to state and carry out methods to decrease the pain will improve Outcome: Progressing Problem: Nutritional: Goal: Nutritional status will be supported Outcome: Progressing Problem: Fluid Volume: Goal: Maintenance of adequate hydration will improve Outcome: Progressing Problem: Health Behavior: Goal: Ability to state signs and symptoms to report to health care provider will improve Outcome: Progressing Problem: Physical Regulation: Goal: Complications related to the disease process, condition or treatment will be avoided or minimized Outcome: Progressing Goal: Ability to maintain clinical measurements within normal limits will improve Outcome: Progressing Problem: Sensory: Goal: Ability to identify factors that increase the pain will improve Outcome: Progressing Goal: Ability to notify healthcare provider of pain before it becomes unmanageable or unbearable will improve Outcome: Progressing Goal: Pain level will decrease Outcome: Progressing Goals: Summary: Patient has had complaints of nausea since arriving to [facility]. Provider notified and orders received. Vital signs stable. Heparin drip infusing. * ED Re-evaluation Note - Ganesh Weston MD - 01/11/2021 2:49 PM CDT ED Re-evaluation TRANSITION OF CARE: I, Ganesh Weston MD, am taking signout under supervision of my attending. I have reviewed all pertinent vital signs, allergies, and history available in the chart. Summary: 55 y.o. 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 CTA dissection protocol w renal thrombus. On heparin gtt. COVID + on 12/29.. Vascular consulted. Pending: systolic BP < 120s goal, bed change to floor Dispo: [facility] hospital floor ED Course as of Jan 12 33 Time: 01/10 690 Comment: Vascular surgery aware, they will staff with attending, request repeat CTA dissection protocol. Likely admission to their service, pending staffing with attending By: Cisco Hernandez MD Time: 01/11 109 Comment: Admit to OU Vascular 7500, Dr. Rodriguez. NPO, continue Heparin Systolic 120 Echo tomorrow bubble Duplex By: Juan Diego Flores MD Time: 01/11 119 Value: US Vein Duplex Lower Extremity Bilateral Complete Comment: (Reviewed) By: Jeanne Gotti MD Time: 01/11 243 Comment: Switching to 8200 ICU due to COVID. By: Juan Diego Flores MD Time: 01/11 5762 Comment: Systolic at goal, a little tachycardic, giving home metop. By: Sly Alanis MD Time: 01/11 1215 Comment: Vascular still wants q2 NV checks. By: Sly Alanis MD Time: 01/11 1418 Comment: Signed out to ic By: Sly Alanis MD Time: 01/11 1454 Comment: Vascular okay with floor status, patietn placement updated. By: Sly Alanis MD Time: 01/11 1512 Comment: ATTENDING TRANSITION OF CARE I, Perry Carlin MD, am taking signout from Aminta Freire (Attending). I have reviewed all pertinent vital signs allergies, and history available in the chart. Summary: 55 y.o. female NHL with XRT resolved. CHF and CM due to chemo. [facility]. [facility] aortic thormbuz. Got dissection protocol - splenic artery. On heparin gtts Pending: Vasc OU but COVID positive 12/29 now to floor. Check BP systolic 120 or less. Dispo: Awaiting floor bed, not operative candidate for now. By: Perry Carlin MD Gomez, Miroslaba, MD Resident 01/12/21 0033 * Plan of Care - Antionette Vicente, ESAU - 01/11/2021 7:51 AM CDT Clinical status reevaluated by ED CM. Pt remains in ED as Boarder. Still appropriate for inpatient level of care. * ED Re-evaluation Note - Sly Alanis MD - 01/11/2021 7:12 AM CDT ED Re-evaluation TRANSITION OF CARE: I, Sly Alanis MD, am taking signout from Dr. Flores (Resident) under supervision of Dr. Freire (Attending). I have reviewed all pertinent vital signs, allergies, and history available in the chart. Summary: 55 y.o. 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 On heparin. Pending: Admit to [facility] ICU Dispo: Admit ED Course as of Jan 12 1604 Time: 01/11 2252 Comment: Vascular surgery aware, they will staff with attending, request repeat CTA dissection protocol. Likely admission to their service, pending staffing with attending By: Cisco Hernandez MD Time: 01/11 109 Comment: Admit to OU Vascular 7500, Dr. Rodriguez. NPO, continue Heparin Systolic 120 Echo tomorrow bubble Duplex By: Juan Diego Flores MD Time: 01/11 119 Value: US Vein Duplex Lower Extremity Bilateral Complete Comment: (Reviewed) By: Jeanne Gotti MD Time: 01/11 024 Comment: Switching to 8200 ICU due to COVID. By: Juan Diego Flores MD Time: 01/11 0948 Comment: Systolic at goal, a little tachycardic, giving home metop. By: Sly Alanis MD Time: 01/11 6227 Comment: Vascular still wants q2 NV checks. By: Sly Alanis MD Time: 01/11 9890 Comment: Signed out to [facility] By: Sly Alanis MD Time: 01/11 2681 Comment: Vascular okay with floor status, patietn placement updated. By: Sly Alanis MD Time: 01/11 3652 Comment: ATTENDING TRANSITION OF CARE I, Perry Carlin MD, am taking signout from Aminta Freire (Attending). I have reviewed all pertinent vital signs allergies, and history available in the chart. Summary: 55 y.o. female NHL with XRT resolved. CHF and CM due to chemo. [facility]. [facility] aortic thormbuz. Got dissection protocol - splenic artery. On heparin gtts Pending: Vasc OU but COVID positive 12/29 now to floor. Check BP systolic 120 or less. Dispo: Awaiting floor bed, not operative candidate for now. By: Perry Carlin MD The encounter diagnosis was Aortic thrombus (CMS/HCC) (HCC). Sly Alanis MD Resident 01/11/21 1604 * ED Re-evaluation Note - Jeanne Gotti MD - 01/10/2021 11:07 PM CDT ED Re-evaluation 55yoF h/o Hodgkins lymphoma h/o radiation/chemo recent covid positive, p/w LUQ pain, found to have descending aortic dissection. awaiting ct dissection protocol, vascular recs, heparinized now. Jeanne Gotti MD 01/16/21 0913 * ED Re-evaluation Note - Juan Diego Flores MD - 01/10/2021 10:58 PM CDT ED Re-evaluation TRANSITION OF CARE: I, Juan Diego Flores MD, am taking signout from Dr. Hernandez (Resident) and assuming care of this patient under the supervision of Dr. Gotti (Attending). I have reviewed all pertinent vital signs, allergies, and history available in the chart. Summary: 55 y.o. female past medical history of Hodgkin's lymphoma (previously treated with radiation and chemotherapy, resultant occult scarring?? and cardiomyopathy/CHF, hypertension, dyslipidemia, reflux with concern for aortic flap with thrombus and possible splenic infarct. Recently COVID positive. Heparin gtt started. Vascular aware. Will repeat labs, CTA, and admit to their service. Pending: Vascular recs Dispo: Admission ED Course as of Jan 11 950 Time: 01/11 2252 Comment: Vascular surgery aware, they will staff with attending, request repeat CTA dissection protocol. Likely admission to their service, pending staffing with attending By: Sandra Hernandez-Felix Mims MD Time: 01/11 109 Comment: Admit to OU Vascular 7500, Dr. Rodriguez. NPO, continue Heparin Systolic 120 Echo tomorrow bubble Duplex By: Juan Diego Flores MD Time: 01/11 011 Value: US Vein Duplex Lower Extremity Bilateral Complete Comment: (Reviewed) By: Jeanne Gotti MD Time: 01/11 0243 Comment: Switching to 8200 ICU due to COVID. By: Juan Diego Flores MD Final diagnoses: Aortic thrombus (CMS/HCC) (HCC) Juan Diego Flores MD Resident 01/11/21 0950 * ED Procedure Note - Fabrice Ludwig MD PhD - 01/10/2021 10:27 PM CDT Associated Order(s): ECG 12 lead Procedure ECG 12 lead Date/Time: 01/10/2021 10:27 PM Performed by: Fabrice Ludwig MD PhD Authorized by: Fabrice Ludwig MD PhD Comments: (22:21) sinus rhythm at 90 beats per minute; left axis deviation; left bundle branch block with secondary ST and T-wave abnormality. Abnormal EKG. Except for decreased rate, no significant change compared with May 20, 2020. Fabrice Ludwig MD PhD 01/10/212226 * ED Pre-Arrival Note - Vikas Lieberman RN - 01/10/2021 9:16 PM CDT Pre-Arrival Note Pt being transferred from [facility] for aortic dissection. Pt had COVID 3 weeks ago, presentedto ED today for abdominal pain, was diagnosed with aortic dissection. Pt accepted by vascular. Called in by Dr. Santiago and Dr. Mckee and accepted to [facility] ED by Dr. Kevin Flores. Pt coming for vascular consult. No need to activate aortic emergency pager prior to arrival per . Vikas Lieberman RN documented in this encounter Plan of Treatment Scheduled Procedures Name Priority Associated Diagnoses Date/Ti me ESOPHAGOGASTRODUODENOSCOPY Nausea Colon cancer screening COLONOSCOPY Nausea Colon cancer screening documented as of this encounter Procedures Procedure Name Priority Date/Time Associated Diagnosis Comments EGFR STAT 01/15/2021 9:02 AM CDT APTT STAT 01/15/2021 9:02 AM CDT PROTIME-INR STAT 01/15/2021 9:02 AM CDT CBC WITHOUT DIFFERENTIAL STAT 01/15/2021 9:02 AM CDT CREATININE STAT 01/15/2021 9:02 AM CDT APTT STAT 01/15/2021 6:44 AM CDT PROTIME-INR STAT 01/15/2021 6:44 AM CDT APTT Routine 01/15/2021 4:31 AM CDT CBC WITHOUT DIFFERENTIAL Routine 01/15/2021 4:31 AM CDT EGFR Routine 01/14/2021 9:17 PM CDT DIFFERENTIAL AUTO Routine 01/14/2021 9:1 7 PM CDT CBC WITH AUTO DIFFERENTIAL Routine 01/14/2021 9:17 PM CDT APTT Routine 01/14/2021 9:17 PM CDT PHOSPHORUS Routine 01/14/2021 9:17 PM CDT MAGNESIUM Routine 01/14/2021 9:17 PM CDT BASIC METABOLIC PANEL Routine 01/14/2021 9:17 PM CDT APTT Routine 01/13/2021 10:24 PM CDT EGFR Routine 01/13/2021 9:58 PM CDT DIFFERENTIAL AUTO Routine 01/13/2021 9:5 8 PM CDT CBC WITH AUTO DIFFERENTIAL Routine 01/13/2021 9:58 PM CDT PHOSPHORUS Routine 01/13/2021 9:58 PM CDT MAGNESIUM Routine 01/13/2021 9:58 PM CDT BASIC METABOLIC PANEL Routine 01/13/2021 9:58 PM CDT CTA CHEST ABDOMINAL AORTA AND BILATERAL ILIOFEMORAL IP Routine 01/13/2021 5:43 PM CDT EGFR Routine 01/12/2021 10:01 PM CDT DIFFERENTIAL AUTO Routine 01/12/2021 10: 01 PM CDT CBC WITH AUTO DIFFERENTIAL Routine 01/12/2021 10:01 PM CDT APTT STAT 01/12/2021 10:01 PM CDT PHOSPHORUS Routine 01/12/2021 10:01 PM CDT MAGNESIUM Routine 01/12/2021 10:01 PM CDT BASIC METABOLIC PANEL Routine 01/12/2021 10:01 PM CDT APTT STAT 01/12/2021 1:59 AM CDT TROPONIN I HIGH-SENSITIVITY 6-HOUR Timed 01/11/2021 6:11 PM CDT EGFR Routine 01/11/2021 6:11 PM CDT DIFFERENTIAL AUTO Routine 01/11/2021 6:1 1 PM CDT CBC WITH AUTO DIFFERENTIAL Routine 01/11/2021 6:11 PM CDT PHOSPHORUS Routine 01/11/2021 6:11 PM CDT MAGNESIUM Routine 01/11/2021 6:11 PM CDT BASIC METABOLIC PANEL Routine 01/11/2021 6:11 PM CDT APTT Timed 01/11/2021 6:03 PM CDT US VEIN DUPLEX LOWER EXTREMITY BILATERAL COMPLETE IP Routine 01/11/2021 1:47 PM CDT APTT STAT 01/11/2021 11:35 AM CDT TRANSTHORACIC ECHO (TTE) COMPLETE W DOPPLER/CF W CONTRAST W BUBBLE STAT 01/11/2021 9:38 AM CDT APTT STAT 01/11/2021 4:19 AM CDT TROPONIN I HIGH-SENSITIVITY 2-HOUR Timed 01/11/2021 1:25 AM CDT CTA CHEST ABDOMINAL AORTA AND BILATERAL ILIOFEMORAL ED Urgent/IP Urgent 01/10/2021 11:36 PM CDT TROPONIN I HIGH-SENSITIVITY SERIES (BASELINE, 2HR, 4HR, 6HR) STAT 01/10/2021 11:04 PM CDT EGFR STAT 01/10/2021 11:04 PM CDT DIFFERENTIAL AUTO STAT 01/10/2021 11: 04 PM CDT PRO B-TYPE NATRIURETIC PEPTIDE STAT 01/10/2021 11:04 PM CDT CBC WITH AUTO DIFFERENTIAL STAT 01/10/2021 11:04 PM CDT APTT STAT 01/10/2021 11:04 PM CDT PROTIME-INR STAT 01/10/2021 11:04 PM CDT HEPATIC FUNCTION PANEL STAT 01/10/2021 11:04 PM CDT BASIC METABOLIC PANEL STAT 01/10/2021 11:04 PM CDT ECG 12-LEAD Routine 01/10/2021 10:27 PM CDT documented in this encounter Results * eGFR (01/15/2021 9:02 AM CDT) [facility] eGFR >90 90 - 130 mL/min/1.7 3 m2 [facility] Comment: Interpretive Data Reference Interval Normal ?>/= [...] interpretive data was last reviewed 2020 Blood 01/15/2021 9:02 AM CDT 01/15/2021 9:28 AM CDT Amber Atwood NURSE GYNECOLOGY LAB BLOOD ORDERABLES Final Re sult Performing Organization Address [facility] de Phone Number [facility] [place] [address] * Creatinine (01/15/2021 9:02 AM CDT) Creatinine 0.74 0.60 - 1.10 mg/dL [facility] Blood 01/15/2021 9:02 AM CDT 01/15/2021 9:28 AM CDT Narrative [facility] - 01/15/2021 9:54 AM CDT Unless preformed in the last 48 hours. Draw prior to apixaban administration. Amber Atwood LAB BLOOD ORDERABLES Final Re sult Performing Organization Address City/[facility] Co de Phone Number [facility] [place] [address] * (ABNORMAL) CBC without differential (01/15/2021 9:02 AM CDT) WBC 11.6(H) 3.8 - 9.9 K/cumm [facility] Hgb 9.6(L) 11.9 - 15.5 g/dL [facility] Hct 29.3(L) 35.6 - 45.5 % [facility] Plt 441(H) 150 - 400 K/cumm [facility] MPV 9.5 9.1 - 12.3 fL [facility] RBC 3.33(L) 3.90 - 5.20 M/cumm [facility] MCV 88.0 81.3 - 96.4 fL [facility] MCH 28.8 27.1 - 33.3 pg [facility] MCHC 32.8 32.3 - 35.7 g/dL [facility] RDW CV 14.0 11.1 - 14.9 % [facility] RDW SD 44.9 35.7 - 48.1 fL [facility] NRBC abs 0.00 0.00 - 0.01 K/cumm [facility] Blood 01/15/2021 9:02 AM CDT 01/15/2021 9:14 AM CDT Narrative [facility] - 01/15/2021 9:18 AM CDT Unless preformed in the last 48 hours. Draw prior to apixaban administration. Amber Atwood NURSE GYNECOLOGY LAB BLOOD ORDERABLES Final Re sult [facility] [place] [address] * (ABNORMAL) aPTT (01/15/2021 9:02 AM CDT) aPTT 66(H) 27 - 37 sec [facility] Comment: Interpretive Data Therapeutic heparin range: 60.0 - 94.0 seconds. Based on correlation with therapeutic heparin activity range of 0.3-0.7 Units/mL. Current interpretive data was last revised on 2020. Blood 01/15/2021 9:02 AM CDT 01/15/2021 9:18 AM CDT Narrative [facility] - 01/15/2021 9:40 AM CDT Baseline lab required by [facility] unless preformed in the last 48 hours. Draw prior to anticoagulation administration. [facility] LAB BLOOD ORDERABLES Final Re sult Performing Organization Address City/[facility] Co de Phone Number [facility] [place] [address] * (ABNORMAL) Protime-INR (01/15/2021 9:02 AM CDT) PT 14.4(H) 9.5 - 13.6 sec [facility] INR 1.3(H) 0.9 - 1.2 [facility] Comment: Interpretive data Oral anticoagulant therapeutic ranges: Venous thromboembolism prophylaxis or treatment: 2.0-3.0 CARDIOLOGY Standard range: 2.0-3.0 High-intensity range: 2.5-3.5 Refer to indication-specific guidelines for appropriate target ranges for prosthetic heart valve replacement. Current interpretive data was last revised on 2019. Blood 01/15/2021 9:02 AM CDT 01/15/2021 9:18 AM CDT Narrative [facility] - 01/15/2021 9:40 AM CDT Baseline lab required by [facility] unless preformed in the last 48 hours. Draw prior to anticoagulation administration. [facility] NURSE GYNECOLOGY LAB BLOOD ORDERABLES Final Re sult Performing Organization Address City/[facility] Co de Phone Number [facility] [place] [address] * (ABNORMAL) aPTT (01/15/2021 6:44 AM CDT) aPTT 72(H) 27 - 37 sec [facility] Comment: Interpretive Data Therapeutic heparin range: 60.0 - 94.0 seconds. Based on correlation with therapeutic heparin activity range of 0.3-0.7 Units/mL. Current interpretive data was last revised on 2020. Blood 01/15/2021 6:44 AM CDT 01/15/2021 9:18 AM CDT Narrative [facility] - 01/15/2021 9:41 AM CDT Unless preformed in the last 48 hours. Draw prior to apixaban administration. [facility] LAB BLOOD ORDERABLES Final Re sult Performing Organization Address [facility] Co de Phone Number [facility] [place] [address] * (ABNORMAL) Protime-INR (01/15/2021 6:44 AM CDT) PT 15.0(H) 9.5 - 13.6 sec [facility] INR 1.4(H) 0.9 - 1.2 [facility] Comment: Interpretive data Oral anticoagulant therapeutic ranges: Venous thromboembolism prophylaxis or treatment: 2.0-3.0 CARDIOLOGY Standard range: 2.0-3.0 High-intensity range: 2.5-3.5 Refer to indication-specific guidelines for appropriate target ranges for prosthetic heart valve replacement. Current interpretive data was last revised on 2019. Blood 01/15/2021 6:44 AM CDT 01/15/2021 9:[address] [facility] - 01/15/2021 9:41 AM CDT Unless preformed in the last 48 hours. Draw prior to apixaban administration. [facility] LAB BLOOD ORDERABLES Final Re sult Performing Organization Address City/[facility] Co de Phone Number [facility] [place] [address] * (ABNORMAL) aPTT (01/15/2021 4:31 AM CDT) aPTT 57(H) 27 - 37 sec [facility] Comment: Interpretive Data Therapeutic heparin range: 60.0 - 94.0 seconds. Based on correlation with therapeutic heparin activity range of 0.3-0.7 Units/mL. Current interpretive data was last revised on 2020. Blood 01/15/2021 4:31 AM CDT 01/15/2021 5:34 AM CDT us Mitchell De Anda MD LAB BLOOD ORDERABLES Arlen letty Result [facility] [place] [address] * (ABNORMAL) CBC without differential (01/15/2021 4:31 AM CDT) [facility] WBC 12.6(H) 3.8 - 9.9 K/cumm [facility] Hgb 9.4(L) 11.9 - 15.5 g/dL [facility] Hct 29.2(L) 35.6 - 45.5 % [facility] Plt 444(H) 150 - 400 K/cumm [facility] MPV 10.2 9.1 - 12.3 fL [facility] RBC 3.32(L) 3.90 - 5.20 M/cumm [facility] MCV 88.0 81.3 - 96.4 fL [facility] MCH 28.3 27.1 - 33.3 pg [facility] MCHC 32.2(L) 32.3 - 35.7 g/dL [facility] RDW CV 14.1 11.1 - 14.9 % [facility] RDW SD 45.0 35.7 - 48.1 fL [facility] NRBC abs 0.00 0.00 - 0.01 K/cumm [facility] Blood 01/15/2021 4:31 AM CDT 01/15/2021 5:20 AM CDT Narrative [facility] - 01/15/2021 5:47 AM CDT Until heparin is discontinued. us Jeanne Gotti MD LAB BLOOD ORDERABLES Final Result Performing Organization Address City/[facility]/ZIP Co de Phone Number [facility] [place] [address] * (ABNORMAL) eGFR (01/14/2021 9:17 PM CDT) eGFR 75(L) 90 - 130 mL/min/1.7 3 m2 [facility] Comment: Interpretive Data Reference Interval Normal ?>/= [...] interpretive data was last reviewed 2020 Blood 01/14/2021 9:17 PM CDT 01/14/2021 9:48 PM CDT us Jeanne Gotti MD LAB BLOOD ORDERABLES Final Result Performing Organization Address City/[facility]/ZIP Co de Phone Number [facility] [place] [address] * (ABNORMAL) Differential, auto (01/14/2021 9:17 PM CDT) Neutrophil abs 8.2(H) 1.7 - 6.5 K/cumm [facility] Imm gran abs 0.1 0.0 - 0.1 K/cumm [facility] Lymphocyte abs 2.8 0.8 - 3.3 K/cumm [facility] Monocyte abs 1.1(H) 0.2 - 0.8 K/cumm [facility] Eosinophil abs 0.1 0.0 - 0.5 K/cumm [facility] Basophil abs 0.1 0.0 - 0.1 K/cumm [facility] Neutrophil pct 67.3 % [facility] Comment: Interpretive Data Percent cell count reference ranges are not reported, since discordance with absolute values may lead to misinterpretation of CBC data. Current Interpretive Data was last revised on 2017. Imm gran pct 0.6 % [facility] Comment: Interpretive Data Percent cell count reference ranges are not reported, since discordance with absolute values may lead to misinterpretation of CBC data. Current Interpretive Data was last revised on 2017. Lymphocyte pct 22.6 % [facility] Comment: Interpretive Data Percent cell count reference ranges are not reported, since discordance with absolute values may lead to misinterpretation of CBC data. Current Interpretive Data was last revised on 2017. Monocyte pct 8.6 % [facility] Comment: Interpretive Data Percent cell count reference ranges are not reported, since discordance with absolute values may lead to misinterpretation of CBC data. Current Interpretive Data was last revised on 2017. Eosinophil pct 0.5 % [facility] Comment: Interpretive Data Percent cell count reference ranges are not reported, since discordance with absolute values may lead to misinterpretation of CBC data. Current Interpretive Data was last revised on 2017. Basophil pct 0.4 % [facility] Comment: Interpretive Data Percent cell count reference ranges are not reported, since discordance with absolute values may lead to misinterpretation of CBC data. Current Interpretive Data was last revised on 2017. Blood 01/14/2021 9:17 PM CDT 01/14/2021 9:48 PM CDT Jeanne Gotti MD LAB BLOOD ORDERABLES Final Result Performing Organization Address City/[facility] Co de Phone Number [facility] [place] [address] * Phosphorus (01/14/2021 9:17 PM CDT) Pathologist [facility], [place] Phosphorus, pl 2.4 2.3 - 4.5 mg/dL [facility] Blood 01/14/2021 9:17 PM CDT 01/14/2021 9:48 PM CDT Jeanne Gotti MD LAB BLOOD ORDERABLES Final Result Performing Organization Address [facility] Co de Phone Number [facility] [place] [address] * Magnesium (01/14/2021 9:17 PM CDT) [facility] Magnesium 2.0 1.4 - 2.5 mg/dL [facility] Blood 01/14/2021 9:17 PM CDT 01/14/2021 9:48 PM CDT Jeanne Gotti MD LAB BLOOD ORDERABLES Final Result Performing Organization Address [facility] Co de Phone Number [facility] [place] [address] * (ABNORMAL) Basic metabolic panel (01/14/2021 9:17 PM CDT) Pathologist [facility] [place] Sodium 141 135 - 145 mmol/L [facility] Potassium, pl 3.2(L) 3.3 - 4.9 mmol/L [facility] Chloride 106 97 - 110 mmol/L [facility] CO2 27 22 - 32 mmol/L [facility] Anion gap 8 2 - 15 mmol/L [facility] BUN 5(L) 8 - 25 mg/dL [facility] Creatinine 0.87 0.60 - 1.10 mg/dL [facility] Glucose 134 70 - 199 mg/dL [facility] Comment: Interpretive Data Fasting glucose >/= 126 [...] interpretive data was last revised 2017. Calcium 8.6 8.5 - 10.3 mg/dL [facility] Blood 01/14/2021 9:17 PM CDT 01/14/2021 9:48 PM CDT us Jeanne Gotti MD LAB BLOOD ORDERABLES Final Result [facility] [place] [address] * (ABNORMAL) CBC with auto differential (01/14/2021 9:17 PM CDT) WBC 12.2(H) 3.8 - 9.9 K/cumm [facility] Hgb 9.4(L) 11.9 - 15.5 g/dL [facility] Hct 28.9(L) 35.6 - 45.5 % [facility] Plt 431(H) 150 - 400 K/cumm [facility] MPV 9.7 9.1 - 12.3 fL [facility] RBC 3.33(L) 3.90 - 5.20 M/cumm [facility] MCV 86.8 81.3 - 96.4 fL [facility] MCH 28.2 27.1 - 33.3 pg [facility] MCHC 32.5 32.3 - 35.7 g/dL [facility] RDW CV 13.9 11.1 - 14.9 % [facility] RDW SD 43.4 35.7 - 48.1 fL [facility] NRBC abs 0.00 0.00 - 0.01 K/cumm [facility] Blood 01/14/2021 9:17 PM CDT 01/14/2021 9:48 PM CDT Jeanne Gotti MD LAB BLOOD ORDERABLES Final Result Performing Organization Address [facility] Co de Phone Number [facility] [place] [address] * (ABNORMAL) aPTT (01/14/2021 9:17 PM CDT) aPTT 59(H) 27 - 37 sec [facility] Comment: Interpretive Data Therapeutic heparin range: 60.0 - 94.0 seconds. Based on correlation with therapeutic heparin activity range of 0.3-0.7 Units/mL. Current interpretive data was last revised on 2020. Blood 01/14/2021 9:17 PM CDT 01/14/2021 9:45 PM CDT Mitchell De Anda MD LAB BLOOD ORDERABLES Arlen l Result Performing Organization Address [facility] de Phone Number [facility] [place] [address] * (ABNORMAL) aPTT (01/13/2021 10:24 PM CDT) aPTT 86(H) 27 - 37 sec [facility] Comment: Interpretive Data Therapeutic heparin range: 60.0 - 94.0 seconds. Based on correlation with therapeutic heparin activity range of 0.3-0.7 Units/mL. Current interpretive data was last revised on 2020. Blood 01/13/2021 10:2 4 PM CDT 01/13/2021 11:09 PM CDT Mitchell De Anda MD LAB BLOOD ORDERABLES Alren l Result Performing Organization Address [facility] Co de Phone Number [facility] [place] [address] * (ABNORMAL) eGFR (01/13/2021 9:58 PM CDT) Pathologist [facility] [place] eGFR 86(L) 90 - 130 mL/min/1.7 3 m2 [facility] Comment: Interpretive Data Reference Interval Normal ?>/= [...] interpretive data was last reviewed 2020 Blood 01/13/2021 9:58 PM CDT 01/13/2021 10:57 PM CDT us Jeanne Gotti MD LAB BLOOD ORDERABLES Final Result Performing Organization Address [facility]/ZIP Co de Phone Number [facility] [place] [address] * (ABNORMAL) Differential, auto (01/13/2021 9:58 PM CDT) Neutrophil abs 8.7(H) 1.7 - 6.5 K/cumm [facility] Imm gran abs 0.1 0.0 - 0.1 K/cumm [facility] Lymphocyte abs 2.5 0.8 - 3.3 K/cumm [facility] Monocyte abs 1.1(H) 0.2 - 0.8 K/cumm [facility] Eosinophil abs 0.0 0.0 - 0.5 K/cumm [facility] Basophil abs 0.0 0.0 - 0.1 K/cumm [facility] Neutrophil pct 70.0 % [facility] Comment: Interpretive Data Percent cell count reference ranges are not reported, since discordance with absolute values may lead to misinterpretation of CBC data. Current Interpretive Data was last revised on 2017. Imm gran pct 0.6 % [facility] Comment: Interpretive Data Percent cell count reference ranges are not reported, since discordance with absolute values may lead to misinterpretation of CBC data. Current Interpretive Data was last revised on 2017. Lymphocyte pct 20.2 % [facility] Comment: Interpretive Data Percent cell count reference ranges are not reported, since discordance with absolute values may lead to misinterpretation of CBC data. Current Interpretive Data was last revised on 2017. Monocyte pct 8.6 % [facility] Comment: Interpretive Data Percent cell count reference ranges are not reported, since discordance with absolute values may lead to misinterpretation of CBC data. Current Interpretive Data was last revised on 2017. Eosinophil pct 0.3 % [facility] Comment: Interpretive Data Percent cell count reference ranges are not reported, since discordance with absolute values may lead to misinterpretation of CBC data. Current Interpretive Data was last revised on 2017. Basophil pct 0.3 % [facility] Comment: Interpretive Data Percent cell count reference ranges are not reported, since discordance with absolute values may lead to misinterpretation of CBC data. Current Interpretive Data was last revised on 2017. Blood 01/13/2021 9:58 PM CDT 01/13/2021 10:57 PM CDT Jeanne Gotti MD LAB BLOOD ORDERABLES Final Result Performing Organization Address City/[facility]/ZIP Co de Phone Number [facility] [place] [address] * (ABNORMAL) Phosphorus (01/13/2021 9:58 PM CDT) [facility] Phosphorus, pl 1.9(L) 2.3 - 4.5 mg/dL [facility] Blood 01/13/2021 9:58 PM CDT 01/13/2021 10:57 PM CDT Jeanne Gotti MD LAB BLOOD ORDERABLES Final Result Performing Organization Address [facility] Co de Phone Number [facility] [place] [address] * Magnesium (01/13/2021 9:58 PM CDT) [facility] Magnesium 1.7 1.4 - 2.5 mg/dL [facility] Blood 01/13/2021 9:58 PM CDT 01/13/2021 10:57 PM CDT Jeanne Gotti MD LAB BLOOD ORDERABLES Final Result Performing Organization Address [facility] Co de Phone Number [facility] [place] [address] * (ABNORMAL) Basic metabolic panel (01/13/2021 9:58 PM CDT) [facility] Sodium 143 135 - 145 mmol/L [facility] Potassium, pl 3.0(L) 3.3 - 4.9 mmol/L [facility] Chloride 105 97 - 110 mmol/L [facility] CO2 26 22 - 32 mmol/L [facility] Anion gap 12 2 - 15 mmol/L [facility] BUN 5(L) 8 - 25 mg/dL [facility] Creatinine 0.78 0.60 - 1.10 mg/dL [facility] Glucose 107 70 - 199 mg/dL [facility] Comment: Interpretive Data Fasting glucose >/= 126 [...] interpretive data was last revised 2017. Calcium 8.3(L) 8.5 - 10.3 mg/dL [facility] Blood 01/13/2021 9:58 PM CDT 01/13/2021 10:57 PM CDT us Jeanne Gotti MD LAB BLOOD ORDERABLES Final Result [facility] [place] [address] * (ABNORMAL) CBC with auto differential (01/13/2021 9:58 PM CDT) WBC 12.5(H) 3.8 - 9.9 K/cumm [facility] Hgb 9.4(L) 11.9 - 15.5 g/dL [facility] Hct 28.3(L) 35.6 - 45.5 % [facility] Plt 376 150 - 400 K/cumm [facility] MPV 10.0 9.1 - 12.3 fL [facility] RBC 3.24(L) 3.90 - 5.20 M/cumm [facility] MCV 87.3 81.3 - 96.4 fL [facility] MCH 29.0 27.1 - 33.3 pg [facility] MCHC 33.2 32.3 - 35.7 g/dL [facility] RDW CV 13.8 11.1 - 14.9 % [facility] RDW SD 43.8 35.7 - 48.1 fL [facility] NRBC abs 0.00 0.00 - 0.01 K/cumm [facility] Blood 01/13/2021 9:58 PM CDT 01/13/2021 10:57 PM CDT us Jeanne Gotti MD LAB BLOOD ORDERABLES Final Result [facility] [place] [address] * CTA Chest Abdominal Aorta and Bilateral Iliofemoral (01/13/2021 5:43 PM CDT) Anatomical Region Laterality Modality Body N/A Computed Tomogra phy 01/14/2021 9:12 AM CDT Addenda Addendum by Kang Burgess MD on 06/05/2021 5:00 PM CDT Follow up US Thyroid done on 06/03/21. Kaylee HAJI RN. Edited by: Kaylee Ponce Electronically signed by: Kang Burgess M.D. Impressions 01/14/2021 1:16 PM CDT 1. Improving thrombus in the proximal descending thoracic aorta with persistent filling defect along the anterior wall of the thoracic aortic. 2. 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 3. Unchanged partially occlusive thrombus in branches of the right internal iliac artery. 4. New small left pleural effusion and trace simple appearing pelvic ascites is likely secondary to volume overload. 5. Three-vessel runoff to both lower extremities. 6. Prominent bilateral thyroid nodules. If not previously performed, recommend follow up of the Incidental thyroid nodule Additional Imaging in 3 Months with thyroid ultrasound. Dictated by: Darek Whitney M.D. The radiology attending physician has personally reviewed this study, and had reviewed and/or edited this written report and agrees with it. Electronically signed by: Kang Burgess M.D. Narrative 01/14/2021 1:16 PM CDT EXAMINATION: ??CT ANGIOGRAPHY OF CHEST, ABDOMEN, PELVIS, AND LOWER EXTREMITIES WITH CONTRAST HISTORY: 55-year-old woman with history of heart failure and hypertension, recent diagnosis Covid and aortic thrombus with several emboli. TECHNIQUE: CT angiography of the chest, abdomen, pelvis, and lower extremities was performed following the uneventful intravenous administration of 115 ml Optiray-350. Vascular 3D images were generated on a dedicated workstation and also reviewed. FINDINGS: CT chest, abdomen, and pelvis 01/02/2021 VASCULAR FINDINGS: Thoracic aorta: A small filling is seen along the anterior aspect of the proximal descending thoracic aorta wall that is similar in size and configuration compared to the prior exam (table position -1037). There has been interval resolution of the in the aortic arch. No aneurysm, dissection, or significant stenosis. Aortic arch and branch vessels: No dissection, aneurysm, or significant stenosis Abdominal Aorta and Branches: Celiac axis: A filling defect is seen in the distal aspect of a superior splenic artery that is unchanged compared to prior exam (table position -909). SMA: no significant stenosis LEIA: no significant stenosis Right renal vessels: no significant stenosis Left renal vessels: no significant stenosis Infrarenal aorta: Minimal atherosclerotic plaque and calcifications without significant stenosis. No aneurysm. Pelvic Vessels: R. Common iliac artery: ??no significant stenosis R. External iliac artery: ??no significant stenosis R. Internal iliac artery: ??Partially occlusive thrombi at several branch points of the right internal iliac artery are similar compared to the prior exam (table position -642). L. Common iliac artery: ??no significant stenosis L. External iliac artery: ??no significant stenosis L. Internal iliac artery: ??no significant stenosis Right Lower Extremity: R. Common femoral artery: ??no significant stenosis R. Profunda femoris artery: ??no significant stenosis R. Superficial femoral artery: ??no significant stenosis R. Popliteal artery: ??no significant stenosis R. Anterior tibial artery: ??no significant stenosis R. Tibioperoneal trunk: ??no significant stenosis R. Posterior tibial artery: ??no significant stenosis R. Peroneal artery: ??no significant stenosis R. Dorsalis pedis artery: ??no significant stenosis R. Plantar artery: ??no significant stenosis Left Lower Extremity: L. Common femoral artery: ??no significant stenosis L. Profunda femoris artery: ??no significant stenosis L. Superficial femoral artery: ??no significant stenosis L. Popliteal artery: ??no significant stenosis L. Anterior tibial artery: ??no significant stenosis L. Tibioperoneal trunk: ??no significant stenosis L. Posterior tibial artery: ??no significant stenosis L. Peroneal artery: ??no significant stenosis L. Dorsalis pedis artery: ??no significant stenosis L. Plantar artery: ??no significant stenosis NON-VASCULAR FINDINGS: Scattered peripheral groundglass opacities and a right upper lobe consolidation are stable to slightly decreased compared to prior exam and are likely infectious/inflammatory. Mild traction bronchiectasis is seen in the superior upper lobes, likely secondary to prior radiation treatment. There is partial left lower lobe atelectasis with a small adjacent effusion. There is a trace right pleural effusion. There is no pneumothorax. Multiple bilateral thyroid nodules are seen in the visualized thyroid. There is no supraclavicular, axillary, or mediastinal lymphadenopathy. Prominent mediastinal lymph nodes are likely reactive. The heart is normal in size with a trace pericardial effusion. There is no large central pulmonary embolism. There is atrophy of the left lateral section of the liver. The liver is otherwise normal. Gallbladder is surgically absent. Pancreas is atrophic. Pancreas, adrenal glands, and kidneys are otherwise normal. A developing splenic infarct predominantly involving the superior pole of the spleen is seen. The urinary bladder is normal. Uterus and adnexa are unremarkable. The colon and small bowel are normal in course and caliber. The stomach and duodenum are normal. There is no pelvic, retroperitoneal, or abdominal lymphadenopathy. There is no intraperitoneal free gas. Small volume simple appearing free fluid in the pelvis is new compared to the prior exam. There is no suspicious osseous lytic or blastic lesion. Procedure Note Kang Burgess MD - 01/14/2021 EXAMINATION: CT ANGIOGRAPHY OF CHEST, ABDOMEN, PELVIS, AND LOWER EXTREMITIES WITH CONTRAST HISTORY: 55-year-old woman with history of heart failure and hypertension, recent diagnosis Covid and aortic thrombus with several emboli. TECHNIQUE: CT angiography of the chest, abdomen, pelvis, and lower extremities was performed following the uneventful intravenous administration of 115 ml Optiray-350. Vascular 3D images were generated on a dedicated workstation and also reviewed. FINDINGS: CT chest, abdomen, and pelvis 01/02/2021 VASCULAR FINDINGS: Thoracic aorta: A small filling is seen along the anterior aspect of the proximal descending thoracic aorta wall that is similar in size and configuration compared to the prior exam (table position -1037). There has been interval resolution of the in the aortic arch. No aneurysm, dissection, or significant stenosis. Aortic arch and branch vessels: No dissection, aneurysm, or significant stenosis Abdominal Aorta and Branches: Celiac axis: A filling defect is seen in the distal aspect of a superior splenic artery that is unchanged compared to prior exam (table position -909). SMA: no significant stenosis LEIA: no significant stenosis Right renal vessels: no significant stenosis Left renal vessels: no significant stenosis Infrarenal aorta: Minimal atherosclerotic plaque and calcifications without significant stenosis. No aneurysm. Pelvic Vessels: R. Common iliac artery: no significant stenosis R. External iliac artery: no significant stenosis R. Internal iliac artery: Partially occlusive thrombi at several branch points of the right internal iliac artery are similar compared to the prior exam (table position -642). L. Common iliac artery: no significant stenosis L. External iliac artery: no significant stenosis L. Internal iliac artery: no significant stenosis Right Lower Extremity: R. Common femoral artery: no significant stenosis R. Profunda femoris artery: no significant stenosis R. Superficial femoral artery: no significant stenosis R. Popliteal artery: no significant stenosis R. Anterior tibial artery: no significant stenosis R. Tibioperoneal trunk: no significant stenosis R. Posterior tibial artery: no significant stenosis R. Peroneal artery: no significant stenosis R. Dorsalis pedis artery: no significant stenosis R. Plantar artery: no significant stenosis Left Lower Extremity: L. Common femoral artery: no significant stenosis L. Profunda femoris artery: no significant stenosis L. Superficial femoral artery: no significant stenosis L. Popliteal artery: no significant stenosis L. Anterior tibial artery: no significant stenosis L. Tibioperoneal trunk: no significant stenosis L. Posterior tibial artery: no significant stenosis L. Peroneal artery: no significant stenosis L. Dorsalis pedis artery: no significant stenosis L. Plantar artery: no significant stenosis NON-VASCULAR FINDINGS: Scattered peripheral groundglass opacities and a right upper lobe consolidation are stable to slightly decreased compared to prior exam and are likely infectious/inflammatory. Mild traction bronchiectasis is seen in the superior upper lobes, likely secondary to prior radiation treatment. There is partial left lower lobe atelectasis with a small adjacent effusion. There is a trace right pleural effusion. There is no pneumothorax. Multiple bilateral thyroid nodules are seen in the visualized thyroid. There is no supraclavicular, axillary, or mediastinal lymphadenopathy. Prominent mediastinal lymph nodes are likely reactive. The heart is normal in size with a trace pericardial effusion. There is no large central pulmonary embolism. There is atrophy of the left lateral section of the liver. The liver is otherwise normal. Gallbladder is surgically absent. Pancreas is atrophic. Pancreas, adrenal glands, and kidneys are otherwise normal. A developing splenic infarct predominantly involving the superior pole of the spleen is seen. The urinary bladder is normal. Uterus and adnexa are unremarkable. The colon and small bowel are normal in course and caliber. The stomach and duodenum are normal. There is no pelvic, retroperitoneal, or abdominal lymphadenopathy. There is no intraperitoneal free gas. Small volume simple appearing free fluid in the pelvis is new compared to the prior exam. There is no suspicious osseous lytic or blastic lesion. IMPRESSION: 1. Improving thrombus in the proximal descending thoracic aorta with persistent filling defect along the anterior wall of the thoracic aortic. 2. 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 3. Unchanged partially occlusive thrombus in branches of the right internal iliac artery. 4. New small left pleural effusion and trace simple appearing pelvic ascites is likely secondary to volume overload. 5. Three-vessel runoff to both lower extremities. 6. Prominent bilateral thyroid nodules. If not previously performed, recommend follow up of the Incidental thyroid nodule Additional Imaging in 3 Months with thyroid ultrasound. Dictated by: Darek Whitney M.D. The radiology attending physician has personally reviewed this study, and had reviewed and/or edited this written report and agrees with it. Electronically signed by: Kang Burgess M.D. Mitchell De Anda MD [facility] [place] PROCEDURES Edited Result - Final * eGFR (01/12/2021 10:01 PM CDT) [facility] eGFR 90 90 - 130 mL/min/1.7 3 m2 [facility] Comment: Interpretive Data Reference Interval Normal ?>/= [...] interpretive data was last reviewed 2020 Blood 01/12/2021 10:0 1 PM CDT 01/12/2021 10:20 PM CDT us Jeanne Gotti MD LAB BLOOD ORDERABLES Final Result [facility] [place] [address] * (ABNORMAL) Differential, auto (01/12/2021 10:01 PM CDT) Neutrophil abs 11.3(H) 1.7 - 6.5 K/cumm [facility] Imm gran abs 0.1 0.0 - 0.1 K/cumm [facility] Lymphocyte abs 2.6 0.8 - 3.3 K/cumm [facility] Monocyte abs 1.3(H) 0.2 - 0.8 K/cumm [facility] Eosinophil abs 0.0 0.0 - 0.5 K/cumm [facility] Basophil abs 0.0 0.0 - 0.1 K/cumm [facility] Neutrophil pct 73.4 % [facility] Comment: Interpretive Data Percent cell count reference ranges are not reported, since discordance with absolute values may lead to misinterpretation of CBC data. Current Interpretive Data was last revised on 2017. Imm gran pct 0.4 % [facility] Comment: Interpretive Data Percent cell count reference ranges are not reported, since discordance with absolute values may lead to misinterpretation of CBC data. Current Interpretive Data was last revised on 2017. Lymphocyte pct 17.2 % [facility] Comment: Interpretive Data Percent cell count reference ranges are not reported, since discordance with absolute values may lead to misinterpretation of CBC data. Current Interpretive Data was last revised on 2017. Monocyte pct 8.5 % [facility] Comment: Interpretive Data Percent cell count reference ranges are not reported, since discordance with absolute values may lead to misinterpretation of CBC data. Current Interpretive Data was last revised on 2017. Eosinophil pct 0.2 % [facility] Comment: Interpretive Data Percent cell count reference ranges are not reported, since discordance with absolute values may lead to misinterpretation of CBC data. Current Interpretive Data was last revised on 2017. Basophil pct 0.3 % [facility] Comment: Interpretive Data Percent cell count reference ranges are not reported, since discordance with absolute values may lead to misinterpretation of CBC data. Current Interpretive Data was last revised on 2017. Blood 01/12/2021 10:0 1 PM CDT 01/12/2021 10:21 PM CDT us Jeanne Gotti MD LAB BLOOD ORDERABLES Final Result [facility] [place] [address] * (ABNORMAL) aPTT (01/12/2021 10:01 PM CDT) aPTT 67(H) 27 - 37 sec [facility] Comment: Interpretive Data Therapeutic heparin range: 60.0 - 94.0 seconds. Based on correlation with therapeutic heparin activity range of 0.3-0.7 Units/mL. Current interpretive data was last revised on 2020. Blood 01/12/2021 10:0 1 PM CDT 01/12/2021 10:29 PM CDT us Mitchell De Anda MD LAB BLOOD ORDERABLES Arlen l Result Performing Organization Address City/[facility]/ZIP Co de Phone Number [facility] [place] [address] * (ABNORMAL) Phosphorus (01/12/2021 10:01 PM CDT) Pathologist [facility] [place] Phosphorus, pl 2.1(L) 2.3 - 4.5 mg/dL [facility] Blood 01/12/2021 10:0 1 PM CDT 01/12/2021 10:20 PM CDT us Jeanne Gotti MD LAB BLOOD ORDERABLES Final Result Performing Organization Address [facility] Co de Phone Number [facility] [place] [address] * Magnesium (01/12/2021 10:01 PM CDT) [facility] Magnesium 1.6 1.4 - 2.5 mg/dL [facility] Blood 01/12/2021 10:0 1 PM CDT 01/12/2021 10:20 PM CDT us Jeanne Gotti MD LAB BLOOD ORDERABLES Final Result Performing Organization Address City/[facility]/ZIP Co de Phone Number [facility] [place] [address] * (ABNORMAL) Basic metabolic panel (01/12/2021 10:01 PM CDT) Sodium 142 135 - 145 mmol/L [facility] Potassium, pl 3.0(L) 3.3 - 4.9 mmol/L [facility] Chloride 104 97 - 110 mmol/L [facility] CO2 27 22 - 32 mmol/L [facility] Anion gap 11 2 - 15 mmol/L [facility] BUN 5(L) 8 - 25 mg/dL [facility] Creatinine 0.75 0.60 - 1.10 mg/dL [facility] Glucose 116 70 - 199 mg/dL [facility] Comment: Interpretive Data Fasting glucose >/= 126 [...] interpretive data was last revised 2017. Calcium 8.6 8.5 - 10.3 mg/dL [facility] Blood 01/12/2021 10:0 1 PM CDT 01/12/2021 10:20 PM CDT us Jeanne Gotti MD LAB BLOOD ORDERABLES Final Result [facility] [place] [address] * (ABNORMAL) CBC with auto differential (01/12/2021 10:01 PM CDT) WBC 15.3(H) 3.8 - 9.9 K/cumm [facility] Hgb 10.1(L) 11.9 - 15.5 g/dL [facility] Hct 30.5(L) 35.6 - 45.5 % [facility] Plt 379 150 - 400 K/cumm [facility] MPV 9.5 9.1 - 12.3 fL [facility] RBC 3.54(L) 3.90 - 5.20 M/cumm [facility] MCV 86.2 81.3 - 96.4 fL [facility] MCH 28.5 27.1 - 33.3 pg [facility] MCHC 33.1 32.3 - 35.7 g/dL [facility] RDW CV 13.3 11.1 - 14.9 % [facility] RDW SD 41.9 35.7 - 48.1 fL [facility] NRBC abs 0.00 0.00 - 0.01 K/cumm [facility] Blood 01/12/2021 10:0 1 PM CDT 01/12/2021 10:21 PM CDT Jeanne Gotti MD LAB BLOOD ORDERABLES Final Result Performing Organization Address [facility] de Phone Number [facility] [place] [address] * (ABNORMAL) aPTT (01/12/2021 1:59 AM CDT) aPTT 70(H) 27 - 37 sec [facility] Comment: Interpretive Data Therapeutic heparin range: 60.0 - 94.0 seconds. Based on correlation with therapeutic heparin activity range of 0.3-0.7 Units/mL. Current interpretive data was last revised on 2020. Blood 01/12/2021 1:59 AM CDT 01/12/2021 2:17 AM CDT Mitchell De Anda MD LAB BLOOD ORDERABLES Arlen l Result Performing Organization Address [facility] de Phone Number [facility] [place] [address] * eGFR (01/11/2021 6:11 PM CDT) eGFR >90 90 - 130 mL/min/1.7 3 m2 [facility] Comment: Interpretive Data Reference Interval Normal ?>/= [...] interpretive data was last reviewed 2020 Blood 01/11/2021 6:11 PM CDT 01/11/2021 6:44 PM CDT us Jeanne Gotti MD LAB BLOOD ORDERABLES Final Result Performing Organization Address City/State/[facility] Co de Phone Number [facility] [place] [address] * (ABNORMAL) Differential, auto (01/11/2021 6:11 PM CDT) Neutrophil abs 13.0(H) 1.7 - 6.5 K/cumm [facility] Imm gran abs 0.1 0.0 - 0.1 K/cumm [facility] Lymphocyte abs 1.7 0.8 - 3.3 K/cumm [facility] Monocyte abs 1.4(H) 0.2 - 0.8 K/cumm [facility] Eosinophil abs 0.0 0.0 - 0.5 K/cumm [facility] Basophil abs 0.1 0.0 - 0.1 K/cumm [facility] Neutrophil pct 79.8 % [facility] Comment: Interpretive Data Percent cell count reference ranges are not reported, since discordance with absolute values may lead to misinterpretation of CBC data. Current Interpretive Data was last revised on 2017. Imm gran pct 0.6 % [facility] Comment: Interpretive Data Percent cell count reference ranges are not reported, since discordance with absolute values may lead to misinterpretation of CBC data. Current Interpretive Data was last revised on 2017. Lymphocyte pct 10.4 % [facility] Comment: Interpretive Data Percent cell count reference ranges are not reported, since discordance with absolute values may lead to misinterpretation of CBC data. Current Interpretive Data was last revised on 2017. Monocyte pct 8.7 % [facility] Comment: Interpretive Data Percent cell count reference ranges are not reported, since discordance with absolute values may lead to misinterpretation of CBC data. Current Interpretive Data was last revised on 2017. Eosinophil pct 0.1 % [facility] Comment: Interpretive Data Percent cell count reference ranges are not reported, since discordance with absolute values may lead to misinterpretation of CBC data. Current Interpretive Data was last revised on 2017. Basophil pct 0.4 % [facility] Comment: Interpretive Data Percent cell count reference ranges are not reported, since discordance with absolute values may lead to misinterpretation of CBC data. Current Interpretive Data was last revised on 2017. Blood 01/11/2021 6:11 PM CDT 01/11/2021 6:42 PM CDT us Jeanne Gotti MD LAB BLOOD ORDERABLES Final Result [facility] [place] [address] * Troponin I high-sensitivity 6-hour (01/11/2021 6:11 PM CDT) Trop I hs 14 <=17 ng/L [facility] Comment: Interpretive Data For further hscTnI resources including the diagnostic algorithm and an aid in interpretation, copy and paste this link: https://bjhlab.testcatalog.org/show/hsTrop-1 Current Interpretive Data last revised 2019. Trop I hs delta See Comment ng/L [facility] Comment:Inappropriate collec tion time to report a delta. Trop I hs pct delta See Comment % [facility] Comment:Inappropriate collec tion time to report a delta. Trop I hs interp See Comment [facility] Comment:Inappropriate collec tion time to report a delta. Blood 01/11/2021 6:11 PM CDT 01/11/2021 6:44 PM CDT Cisco Hernandez MD LAB BLOOD ORDERABLES Final Result Performing Organization Address City/[facility]/ZIP Co de Phone Number [facility] [place] [address] * Phosphorus (01/11/2021 6:11 PM CDT) [facility] Phosphorus, pl 3.1 2.3 - 4.5 mg/dL [facility] Blood 01/11/2021 6:11 PM CDT 01/11/2021 6:44 PM CDT us Jeanne Gotti MD LAB BLOOD ORDERABLES Final Result Performing Organization Address [facility] Co de Phone Number [facility] [place] [address] * Magnesium (01/11/2021 6:11 PM CDT) [facility] Magnesium 1.7 1.4 - 2.5 mg/dL [facility] Blood 01/11/2021 6:11 PM CDT 01/11/2021 6:44 PM CDT Jeanne Gotti MD LAB BLOOD ORDERABLES Final Result Performing Organization Address [facility] Co de Phone Number [facility] [place] [address] * (ABNORMAL) Basic metabolic panel (01/11/2021 6:11 PM CDT) [facility] Sodium 140 135 - 145 mmol/L [facility] Potassium, pl 3.6 3.3 - 4.9 mmol/L [facility] Chloride 103 97 - 110 mmol/L [facility] CO2 28 22 - 32 mmol/L [facility] Anion gap 9 2 - 15 mmol/L [facility] BUN 7(L) 8 - 25 mg/dL [facility] Creatinine 0.64 0.60 - 1.10 mg/dL [facility] Glucose 151 70 - 199 mg/dL [facility] Comment: Interpretive Data Fasting glucose >/= 126 [...] interpretive data was last revised 2017. Calcium 8.7 8.5 - 10.3 mg/dL [facility] Blood 01/11/2021 6:11 PM CDT 01/11/2021 6:44 PM CDT us Jeanne Gotti MD LAB BLOOD ORDERABLES Final Result [facility] [place] [address] * (ABNORMAL) CBC with auto differential (01/11/2021 6:11 PM CDT) WBC 16.2(H) 3.8 - 9.9 K/cumm [facility] Hgb 10.7(L) 11.9 - 15.5 g/dL [facility] Hct 33.0(L) 35.6 - 45.5 % [facility] Plt 381 150 - 400 K/cumm [facility] MPV 9.1 9.1 - 12.3 fL [facility] RBC 3.84(L) 3.90 - 5.20 M/cumm [facility] MCV 85.9 81.3 - 96.4 fL [facility] MCH 27.9 27.1 - 33.3 pg [facility] MCHC 32.4 32.3 - 35.7 g/dL [facility] RDW CV 13.4 11.1 - 14.9 % [facility] RDW SD 42.2 35.7 - 48.1 fL [facility] NRBC abs 0.00 0.00 - 0.01 K/cumm [facility] Blood 01/11/2021 6:11 PM CDT 01/11/2021 6:42 PM CDT us Jeanne Gotti MD LAB BLOOD ORDERABLES Final Result Performing Organization Address [facility] Co de Phone Number [facility] [place] [address] * (ABNORMAL) aPTT (01/11/2021 6:03 PM CDT) aPTT 65(H) 27 - 37 sec [facility] Comment: Interpretive Data Therapeutic heparin range: 60.0 - 94.0 seconds. Based on correlation with therapeutic heparin activity range of 0.3-0.7 Units/mL. Current interpretive data was last revised on 2020. Blood 01/11/2021 6:03 PM CDT 01/11/2021 6:52 PM CDT us Mitchell De Anda MD LAB BLOOD ORDERABLES Arlen l Result Performing Organization Address City/[facility] Co de Phone Number [facility] [place] [address] * US Vein Duplex Lower Extremity Bilateral Complete (01/11/2021 1:47 PM CDT) Anatomical Region Laterality Modality Vascular Bilateral Ultrasound 01/11/2021 11:0 8 AM CDT Narrative 01/11/2021 1:43 PM CDT [facility] - Department of Vascular Surgery, Vascular Laboratory [address] [place] [id number] Lower Extremity Venous Ultrasound Report Patient Name: MYLES SAUCEDA J : 1965 (55y 11m) Study Date: 01/11/2021 11:08:32 AM Gender: F Tech: ia Location: CC-05 Ref.Provider: EVA REINA Quality: Adequate Order Provider: EVA REINA Procedures: Vascular Report: Venous Duplex imaging was performed bilaterally in the lower extremities. The common femoral, femoral, popliteal, posterior tibial, peroneal, great saphenous vein proximal at the junction were evaluated with compression maneuvers. Indications: Encounter for Other Preprocedural Exam. Findings: Performing Business Continuity Manager: Zoila Marques RVT. Bilateral: No evidence of deep vein thrombus by duplex, proximal to the calf. Comments: Testing protocol is modified due to positive COVID result or possible COVID. Conclusions: 1. Testing protocol is modified due to positive COVID result or possible COVID. 2. There is no evidence of acute deep vein thrombosis in the lower extremities bilaterally. Noninvasive venous studies cannot rule out isolated calf vein obstruction. History: Not identified. Previous Studies: No previous studies for comparison. Disclaimer: The signing physician has reviewed all images pertaining to this test. These images and this report will be retained in the patient chart by the Vascular Laboratory for the legally required time period. This chart constitutes the legal record of any testing performed. Electronically Signed By: Cedric Saleh MD [facility] 2021-01-11 13:43:32 CDT CC: CC: Procedure Note Cedric Saleh MD - 01/11/2021 [facility] - Department of Vascular Surgery,Vascular Laboratory [address] [place] [address] Lower Extremity Venous Ultrasound Report Patient Name: MYLES SAUCEDA JPatient ID: [id number] : 1965 (55y 11m)Study Date: 01/11/2021 11:08:32 AM Gender: FAccession #: [id number] Tech: iaLocation: CC-05L Ref.Provider: KOLSTER, KATHERINEQuality: Adequate Order Provider: Aditya REINA #: [id number] Procedures: Vascular Report: Venous Duplex imaging was performed bilaterally in the lower extremities.The common femoral, femoral, popliteal, posterior tibial, peroneal, great saphenousvein proximal at the junction were evaluated with compression maneuvers. Indications: Encounter for Other Preprocedural Exam. Findings: Performing Business Continuity Manager: Zoila Marques, RVT. Bilateral: No evidence of deep vein thrombus by duplex, proximal to the calf. Comments: Testing protocol is modified due to positive COVID result or possibleCOVID. Conclusions: 1. Testing protocol is modified due to positive COVID result or possibleCOVID. 2. There is no evidence of acute deep vein thrombosis in the lowerextremities bilaterally. Noninvasive venous studies cannot rule out isolated calf veinobstruction. History: Not identified. Previous Studies: No previous studies for comparison. Disclaimer: The signing physician has reviewed all images pertaining to this test.These images and this report will be retained in the patient chart by the VascularLaboratory for the legally required time period. This chart constitutes the legal record ofany testing performed. Electronically Signed By: Cedric Saleh MD [facility] 2021-01-11 13:43:32 CDT CC: CC: us Eva Reina NURSE GYNECOLOGY IMG US PROCEDURES F inal Result * (ABNORMAL) aPTT (01/11/2021 11:35 AM CDT) aPTT 53(H) 27 - 37 sec [facility] Comment: Interpretive Data Therapeutic heparin range: 60.0 - 94.0 seconds. Based on correlation with therapeutic heparin activity range of 0.3-0.7 Units/mL. Current interpretive data was last revised on 2020. Blood 01/11/2021 11:3 5 AM CDT 01/11/2021 11:44 AM CDT Srinivas GARSIA - 01/11/2021 12:09 PM CDT Draw STAT PTT 6 hrs after initial heparin bolus, after each rate change, and every 6 hours until 2 consecutive PTTs are within therapeutic range. Once two consecutive PTT's are therapeutic (60-94.9 seconds), then draw PTT every AM until heparin is discontinued. us Mitchell De Anda MD LAB BLOOD ORDERABLES Arlen saenz Result [facility] Nadia [facility] [place] [address] * TRANSTHORACIC ECHO (TTE) COMPLETE W DOPPLER/CF W CONTRAST W BUBBLE (01/11/2021 9:38 AM CDT) Anatomical Region Laterality Modality Ultrasound 01/11/2021 7:35 AM CDT Narrative 01/11/2021 10:46 AM CDT Patient name: Myles Sauceda Date of test: 01/11/2021 Type of test: TTE w/Doppler [facility] #: [id number] Date of : 1965 (F) Business Continuity Manager: Priscila Mauro RDCS Referring Physician: MITCHELL DE ANDA MD Contrast Agent: 2.6 ml. Optison Admin., (0.4 ml Wasted) and NS Bubble Study Contrast Administered by: Kaycee Ludwig RN Supervised/Interpreted by: Segundo Goldstein MD Diagnosis: Location: [facility] Reason for test: c/f PFO MV Structure: Normal, ?MV Motion: Normal, ?? [...] Variable ?2D Linear Normal ? Aotic Root: 3.4 cm ?<3.6 ? Ao Indexed: 1.8 cm/M2 <2.0 ? LA: ? <3.8 ? RV: ? <4.2 ? LV(ED): ? 4.4 cm ?<5.3 ? LV(ES): ? 3.3 cm ?<3.5 ?2D Vol. ?? Normal ?Indexed ?? Indexed Normal RA: ? 9-33 ? LA: ? 16-34 ? RV: ? <11.6 ? LV(ED): ? 130.0 ml ??46-106 ?69.5 ml/M2 ?<62 ? LV(ES): ? 59.0 ml ?? 14-42 ? 31.5 ml/M2 ?<25 ?3D Vol. ? Indexed Normal LV(ED): ?<62 ? LV(ES): ?<24 ? LV EF: 55 % ?? (Normal: >=54%) ?? LV Septum: 1.2 cm ?(Normal: <0.9 cm) Wall Motion Scoring (1=Normal 2=Hypo 3=Akinetic 4=Dyskin./Aneurysm 0=Not visualized) Parasternal Long [place]:MAS=2 BAS=1 MIL=1 KAYLEY=1 Parasternal Short [place]:MAS=2 MIS=1 CA=1 MIL=1 MAL=1 MA=1 Apical 4 Chambers:=1 MIS=1 BIS=1 BAL=1 MAL=1 AL=1 AC=1 Apical 2 Chambers:AI=1 CA=1 BI=1 BA=1 MA=1 AA=2 AC=1 LV Global Longitudinal Strain: -12.6% ??(Normal <-17%) RV Global Longitudinal Strain: LV Function: Low Normal LV Ejection Fraction, ??(EF=54-74%) RV Function: Hyperdynamic Septal Motion: paradoxic Pericardial Effusion: none seen Atrial Septum: Normal DOPPLER/COLOR FLOW DOPPLER RESULTS: Diastolic Function: indeterminate Tricuspid Valve: mild TV regurgitation Pulmonic Valve: normal PV AV Regurgitation: Mild AR AV Stenosis: no AV Area: ??cm2 AV Pressure Gradient (mmHg): Mean: 0, Peak:0 MV Regurgitation: No MR seen MV Stenosis: ??no MS MV Area: ??cm2 MV Pressure Gradient (mmHg): Mean: 0 MV ERO: ??cm Regurg. Vol.: ??ml/beat Regurg. Frac.: ??% PA Pressure: <25 mmHg DOPPLER/COLOR FOLOW DOPPLER COMMENTS: Mild AR, No MR seen, no , ??no MS, mild TV regurgitation, normal PV. Diastolic function: Normal LVOT VTI=23.5 ??TAPSE=2.0 CONTRAST: 2.6 ml. Optison Admin., (0.4 ml Wasted) and NS Bubble Study SUMMARY: Tachycardia present throughout the study, ??HR 106 bpm. ?? LA is normal. Normal RV cavity size. LV cavity size is mildly dilated. Mild concentric LV hypertrophy. Normal aorta. LV systolic function is low normal with hypokineisis of the mid anterolateral wall. ??LVEF=55%. ?? RV systolic fucntion is hyperdynamic. LV diastolic function could not be assessed. ??Mild AI and TR without pulmonary hypertension. No intracardiac masses or thrombi detected. ?? Saline contrast study NEGATIVE for right to left shunt with and without Valsalva maneuver. Confirmed on ??01/11/2021 - 10:46:19 by Segundo Goldstein MD By signing this report, the attending aerospace engineer officer armament certifies that he or she has personally supervised and interpreted the echocardiogram and has reviewed and or edited and agrees with the written comments contained within the report. Procedure Note Segundo Goldstein MD - 01/11/2021 Patient name: Myles Sauceda Date of test: 01/11/2021 Type of test: TTE w/[facility] #: [id number] Date of : 1965 (F) Business Continuity Manager: Priscila Mauro KEVIN Referring Physician: MITCHELL DE ANDA MD Contrast Agent: 2.6 ml. Optison Admin., (0.4 ml Wasted) and NS Bubble Study Contrast Administered by: Kaycee Ludwig RN Supervised/Interpreted by: Segundo Goldstein MD Diagnosis: Location: [facility] Reason for test: c/f PFO MV Structure: Normal, MV Motion: Normal, Mitral Annulus: Normal AV Structure: tricuspid and is Normal, AV Motion: Normal Aotic root: Normal, TM: Normal, PV: Normal Valvular Vegetations: none seen, Mass/Thrombi: none seen RA: Normal Measurements: M-Mode Normal Aotic Root: <3.8 LA: <3.8 RV: <2.8 LV(ED): <5.7 LV(ES): Variable 2D Linear Normal Aotic Root: 3.4 cm <3.6 Ao Indexed: 1.8 cm/M2 <2.0 LA: <3.8 RV: <4.2 LV(ED): 4.4 cm <5.3 LV(ES): 3.3 cm <3.5 2D Vol. Normal Indexed Indexed Normal RA: 9-33 LA: 16-34 RV: <11.6 LV(ED): 130.0 ml 46-106 69.5 ml/M2 <62 LV(ES): 59.0 ml 14-42 31.5 ml/M2 <25 3D Vol. Indexed Normal LV(ED): <62 LV(ES): <24 LV EF: 55 % (Normal: >=54%) LV Septum: 1.2 cm (Normal: <0.9 cm) Wall Motion Scoring (1=Normal 2=Hypo 3=Akinetic 4=Dyskin./Aneurysm 0=Not visualized) Parasternal Long [place]:MAS=2 BAS=1 MIL=1 KAYLEY=1 Parasternal Short [place]:MAS=2 MIS=1 CA=1 MIL=1 MAL=1 MA=1 Apical 4 Chambers:=1 MIS=1 BIS=1 BAL=1 MAL=1 AL=1 AC=1 Apical 2 Chambers:AI=1 CA=1 BI=1 BA=1 MA=1 AA=2 AC=1 LV Global Longitudinal Strain: -12.6% (Normal <-17%) RV Global Longitudinal Strain: LV Function: Low Normal LV Ejection Fraction, (EF=54-74%) RV Function: Hyperdynamic Septal Motion: paradoxic Pericardial Effusion: none seen Atrial Septum: Normal DOPPLER/COLOR FLOW DOPPLER RESULTS: Diastolic Function: indeterminate Tricuspid Valve: mild TV regurgitation Pulmonic Valve: normal PV AV Regurgitation: Mild AR AV Stenosis: no AV Area: cm2 AV Pressure Gradient (mmHg): Mean: 0, Peak:0 MV Regurgitation: No MR seen MV Stenosis: no MS MV Area: cm2 MV Pressure Gradient (mmHg): Mean: 0 MV ERO: cm Regurg. Vol.: ml/beat Regurg. Frac.: % PA Pressure: <25 mmHg DOPPLER/COLOR FOLOW DOPPLER COMMENTS: Mild AR, No MR seen, no , no MS, mild TV regurgitation, normal PV. Diastolic function: Normal LVOT VTI=23.5 TAPSE=2.0 CONTRAST: 2.6 ml. Optison Admin., (0.4 ml Wasted) and NS Bubble Study SUMMARY: Tachycardia present throughout the study, HR [...] left shunt with and without Valsalva maneuver. Confirmed on 01/11/2021 - 10:46:19 by Segundo Goldstein MD By signing this report, the attending aerospace engineer officer armament certifies that he or she has personally supervised and interpreted the echocardiogram and has reviewed and or edited and agrees with the written comments contained within the report. Mitchell De Anda MD CV ECHO PROCEDURES Final Result * (ABNORMAL) aPTT (01/11/2021 4:19 AM CDT) aPTT 60(H) 27 - 37 sec [facility] Comment: Interpretive Data Therapeutic heparin range: 60.0 - 94.0 seconds. Based on correlation with therapeutic heparin activity range of 0.3-0.7 Units/mL. Current interpretive data was last revised on 2020. Blood 01/11/2021 4:19 AM CDT 01/11/2021 4:46 AM CDT Mitchell De Anda MD LAB BLOOD ORDERABLES Arlen l Result Performing Organization Address [facility] Co de Phone Number [facility] [place] [address] * (ABNORMAL) Troponin I high-sensitivity 2-hour (01/11/2021 1:25 AM CDT) Trop I hs 19(H) <=17 ng/L [facility] Comment: Interpretive Data For further [facility] resources including the diagnostic algorithm and an aid in interpretation, copy and paste this link: https://bjhlab.testcatalog.org/show/hsTrop-1 Current Interpretive Data last revised 2019. Trop I hs delta 4 ng/L [facility] Trop I hs interp Insignificant [facility] Blood 01/11/2021 1:25 AM CDT 01/11/2021 1:41 AM CDT Cisco Hernandez MD LAB BLOOD ORDERABLES Final Result Performing Organization Address City/[facility]/ZIP Co de Phone Number [facility] [place] [address] * CTA Chest Abdominal Aorta and Bilateral Iliofemoral (01/10/2021 11:36 PM CDT) Anatomical Region Laterality Modality Body N/A Computed Tomogra phy 01/11/2021 12:4 2 AM CDT Impressions 01/11/2021 3:24 PM CDT 1. Interval decrease in thrombus associated with the descending thoracic aorta in the region of the ductus and extending into the aortic lumen. In the setting of recent Covid and coagulopathy this might represent thoracic aortic mobile thrombus or alternatively thrombus associated with plaque rupture. Follow-up exam is recommended to document resolution. 2. 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 3. Small embolism involving the anterior division of the right internal iliac arteries. Possible tiny embolus in a distal branch of the right profunda femoral artery. 4. Nodular density in the right upper lobe likely post viral infection. Attention on follow-up exam. The Critical results were discussed with Dr. Orona by Darrian Norris M.D. on 01/11/2021 12:15 AM Dictated by: Darrian Norris M.D. The radiology attending physician has personally reviewed this study, and had reviewed and/or edited this written report and agrees with it. Electronically signed by: Monique Aguila M.D. Narrative 01/11/2021 3:24 PM CDT EXAMINATION: ??CT ANGIOGRAPHY OF CHEST, ABDOMEN, PELVIS, AND LOWER EXTREMITIES WITH CONTRAST HISTORY: 55-year-old female with history of remote Hodgkin's lymphoma status post radiation and chemotherapy, heart failure, hypertension presenting with left abdominal pain. Recently diagnosed with Covid. TECHNIQUE: CT of the chest without contrast according to standard protocol was performed. CT angiography of the chest, abdomen, pelvis, and lower extremities was performed following the uneventful intravenous administration of 125 ml [id number]. Vascular 3D images were generated on a dedicated workstation and also reviewed. FINDINGS: Comparison is made with CT PE and abdomen/pelvis 01/02/[address] PE 05/21/2020. Additional comparison is made of cardiac MRI 01/20/2019. VASCULAR FINDINGS: No cardiac thrombus is seen. Thoracic aorta: There is interval decrease in thrombus within the descending thoracic aorta in the region of the ductus. Thrombus remains associated with the anteromedial aspect of the aortic wall adjacent to the ductus and extending into the lumen of the aorta. On the prior CT dated 05/21/2020 there is a minimal amount of calcified and noncalcified atherosclerotic plaque. There is no dissection flap, intramural hematoma or other wall abnormality. No surrounding fat stranding or contrast extravasation. Aortic arch and branch vessels: No dissection, aneurysm, or significant stenosis Abdominal Aorta and Branches: There is minimal atherosclerotic disease of the abdominal aorta. The celiac axis, superior mesenteric artery, inferior mesenteric artery, and renal vessels are patent and normal in caliber. There is embolism within a distal branch of the splenic artery (table position -521). Pelvic Vessels: There is a small arterial embolism within the anterior division of the right internal iliac artery (table position -254). The remainder of the vessels of the pelvis are patent. Right Lower Extremity: There is a possible tiny embolus in a distal branch of the right profunda femoral artery. ??No definite opacification of the right dorsalis pedis artery. Left lower extremity: The vessels of the left lower extremity are patent with three-vessel runoff. NON-VASCULAR FINDINGS: Multiple subcentimeter hypoattenuating nodules in the thyroid. No supraclavicular or cervical lymphadenopathy. No axillary lymphadenopathy. Multiple subcentimeter mediastinal lymph nodes. Minimal coronary atherosclerosis. Biapical chronic volume loss with mild traction bronchiectasis compatible with prior radiation. Bibasilar atelectasis. Nodular densities in the right upper lobe favored be infectious or inflammatory in nature. The liver has a normal angiographic appearance. The pancreas, adrenal glands, and kidneys are normal. There are some contrast in the collecting system and bladder from prior exam. The spleen is unchanged and shape. There is new infarct involving the lateral and superior half of the spleen, similar to immediate prior exam. The small large bowel are normal. The appendix is normal. Contrast in bladder obscures evaluation of the pelvis. No fracture or aggressive osseous lesion. Procedure Note Monique Aguila MD - 01/11/2021 EXAMINATION: CT ANGIOGRAPHY OF CHEST, ABDOMEN, PELVIS, AND LOWER EXTREMITIES WITH CONTRAST HISTORY: 55-year-old female with history of remote Hodgkin's lymphoma status post radiation and chemotherapy, heart failure, hypertension presenting with left abdominal pain. Recently diagnosed with Covid. TECHNIQUE: CT of the chest without contrast according to standard protocol was performed. CT angiography of the chest, abdomen, pelvis, and lower extremities was performed following the uneventful intravenous administration of 125 ml Optiray-350. Vascular 3D images were generated on a dedicated workstation and also reviewed. FINDINGS: Comparison is made with CT PE and abdomen/pelvis 01/02/[address] PE 05/21/2020. Additional comparison is made of cardiac MRI 01/20/2019. VASCULAR FINDINGS: No cardiac thrombus is seen. Thoracic aorta: There is interval decrease in thrombus within the descending thoracic aorta in the region of the ductus. Thrombus remains associated with the anteromedial aspect of the aortic wall adjacent to the ductus and extending into the lumen of the aorta. On the prior CT dated 05/21/2020 there is a minimal amount of calcified and noncalcified atherosclerotic plaque. There is no dissection flap, intramural hematoma or other wall abnormality. No surrounding fat stranding or contrast extravasation. Aortic arch and branch vessels: No dissection, aneurysm, or significant stenosis Abdominal Aorta and Branches: There is minimal atherosclerotic disease of the abdominal aorta. The celiac axis, superior mesenteric artery, inferior mesenteric artery, and renal vessels are patent and normal in caliber. There is embolism within a distal branch of the splenic artery (table position -521). Pelvic Vessels: There is a small arterial embolism within the anterior division of the right internal iliac artery (table position -254). The remainder of the vessels of the pelvis are patent. Right Lower Extremity: There is a possible tiny embolus in a distal branch of the right profunda femoral artery. No definite opacification of the right dorsalis pedis artery. Left lower extremity: The vessels of the left lower extremity are patent with three-vessel runoff. NON-VASCULAR FINDINGS: Multiple subcentimeter hypoattenuating nodules in the thyroid. No supraclavicular or cervical lymphadenopathy. No axillary lymphadenopathy. Multiple subcentimeter mediastinal lymph nodes. Minimal coronary atherosclerosis. Biapical chronic volume loss with mild traction bronchiectasis compatible with prior radiation. Bibasilar atelectasis. Nodular densities in the right upper lobe favored be infectious or inflammatory in nature. The liver has a normal angiographic appearance. The pancreas, adrenal glands, and kidneys are normal. There are some contrast in the collecting system and bladder from prior exam. The spleen is unchanged and shape. There is new infarct involving the lateral and superior half of the spleen, similar to immediate prior exam. The small large bowel are normal. The appendix is normal. Contrast in bladder obscures evaluation of the pelvis. No fracture or aggressive osseous lesion. IMPRESSION: 1. Interval decrease in thrombus associated with the descending thoracic aorta in the region of the ductus and extending into the aortic lumen. In the setting of recent Covid and coagulopathy this might represent thoracic aortic mobile thrombus or alternatively thrombus associated with plaque rupture. Follow-up exam is recommended to document resolution. 2. 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 3. Small embolism involving the anterior division of the right internal iliac arteries. Possible tiny embolus in a distal branch of the right profunda femoral artery. 4. Nodular density in the right upper lobe likely post viral infection. Attention on follow-up exam. The Critical results were discussed with Dr. Orona by Darrian Norris M.D. on 01/11/2021 12:15 AM Dictated by: Darrian Norris M.D. The radiology attending physician has personally reviewed this study, and had reviewed and/or edited this written report and agrees with it. Electronically signed by: Monique Aguila M.D. Cisco Hernandez MD IMG CT PROCEDURES Fin al Result * eGFR (01/10/2021 11:04 PM CDT) [facility] eGFR >90 90 - 130 mL/min/1.7 3 m2 [facility] Comment: Interpretive Data Reference Interval Normal ?>/= [...] data was last reviewed 2020 Blood 01/10/2021 11:0 4 PM CDT 01/10/2021 11:15 PM CDT us Cisco Hernandez MD LAB BLOOD ORDERABLES Final Result [facility] [place] [address] * (ABNORMAL) Differential, auto (01/10/2021 11:04 PM CDT) Neutrophil abs 8.9(H) 1.7 - 6.5 K/cumm [facility] Imm gran abs 0.1 0.0 - 0.1 K/cumm [facility] Lymphocyte abs 3.9(H) 0.8 - 3.3 K/cumm [facility] Monocyte abs 1.0(H) 0.2 - 0.8 K/cumm [facility] Eosinophil abs 0.0 0.0 - 0.5 K/cumm [facility] Basophil abs 0.1 0.0 - 0.1 K/cumm [facility] Neutrophil pct 63.6 % [facility] Comment: Interpretive Data Percent cell count reference ranges are not reported, since discordance with absolute values may lead to misinterpretation of CBC data. Current Interpretive Data was last revised on 2017. Imm gran pct 0.5 % [facility] Comment: Interpretive Data Percent cell count reference ranges are not reported, since discordance with absolute values may lead to misinterpretation of CBC data. Current Interpretive Data was last revised on 2017. Lymphocyte pct 28.2 % [facility] Comment: Interpretive Data Percent cell count reference ranges are not reported, since discordance with absolute values may lead to misinterpretation of CBC data. Current Interpretive Data was last revised on 2017. Monocyte pct 7.0 % [facility] Comment: Interpretive Data Percent cell count reference ranges are not reported, since discordance with absolute values may lead to misinterpretation of CBC data. Current Interpretive Data was last revised on 2017. Eosinophil pct 0.3 % [facility] Comment: Interpretive Data Percent cell count reference ranges are not reported, since discordance with absolute values may lead to misinterpretation of CBC data. Current Interpretive Data was last revised on 2017. Basophil pct 0.4 % [facility] Comment: Interpretive Data Percent cell count reference ranges are not reported, since discordance with absolute values may lead to misinterpretation of CBC data. Current Interpretive Data was last revised on 2017. Blood 01/10/2021 11:0 4 PM CDT 01/10/2021 11:15 PM CDT us Cisco Hernandez MD LAB BLOOD ORDERABLES Final Result [facility] [place] [address] * Hepatic function panel (01/10/2021 11:04 PM CDT) Bilirubin, total 0.3 0.1 - 1.2 mg/dL [facility] Bilirubin, direct <0.2 0.1 - 0.3 mg/dL [facility] Protein, pl 7.0 6.5 - 8.5 g/dL [facility] Albumin 3.6 3.5 - 5.0 g/dL [facility] Alk phos 68 40 - 130 Units/L [facility] ALT 29 7 - 45 Units/L [facility] AST 25 10 - 45 Units/L [facility] Blood 01/10/2021 11:0 4 PM CDT 01/10/2021 11:15 PM CDT us Cisco Hernandez MD LAB BLOOD ORDERABLES Final Result [facility] [place] [address] * Pro B-type natriuretic peptide (01/10/2021 11:04 PM CDT) NT-proBNP 263 <=300 pg/mL [facility] Comment: Interpretive Comments: A. Dyspnea in Acute [...] Data Last Revised Date: 2017. Blood 01/10/2021 11:0 4 PM CDT 01/10/2021 11:15 PM CDT Cisco Hernandez MD LAB BLOOD ORDERABLES Final Result Performing Organization Address [facility] de Phone Number [facility] [place] [address] * Troponin I high-sensitivity series (baseline, 2hr, 4hr, 6hr) (01/10/2021 11:04 PM CDT) Trop I hs 15 <=17 ng/L [facility] Comment: Interpretive Data For further hscTnI resources including the diagnostic algorithm and an aid in interpretation, copy and paste this link: [email or web address]/[email or web address] Current Interpretive Data last revised 2019. Blood 01/10/2021 11:0 4 PM CDT 01/10/2021 11:15 PM CDT Cisco Hernandez MD LAB BLOOD ORDERABLES Final Result Performing Organization Address [facility] de Phone Number [facility] [place] [address] * (ABNORMAL) aPTT (01/10/2021 11:04 PM CDT) aPTT 99(H) 27 - 37 sec [facility] Comment: Interpretive Data Therapeutic heparin range: 60.0 - 94.0 seconds. Based on correlation with therapeutic heparin activity range of 0.3-0.7 Units/mL. Current interpretive data was last revised on 2020. Blood 01/10/2021 11:0 4 PM CDT 01/10/2021 11:18 PM CDT Narrative [facility] - 01/10/2021 11:29 PM CDT Unless preformed in the last 48 hours. Draw prior to heparin administration. Cisco Hernandez MD LAB BLOOD ORDERABLES Final Result Performing Organization Address City/[facility]/ZIP Co de Phone Number [facility] [place] [address] * (ABNORMAL) Protime-INR (01/10/2021 11:04 PM CDT) Pathologist [facility] [place] PT 15.1(H) 9.5 - 13.6 sec [facility] INR 1.4(H) 0.9 - 1.2 [facility] Comment: Interpretive data Oral anticoagulant therapeutic ranges: Venous thromboembolism prophylaxis or treatment: 2.0-3.0 CARDIOLOGY Standard range: 2.0-3.0 High-intensity range: 2.5-3.5 Refer to indication-specific guidelines for appropriate target ranges for prosthetic heart valve replacement. Current interpretive data was last revised on 2019. Blood 01/10/2021 11:0 4 PM CDT 01/10/2021 11:18 PM CDT Narrative [facility] - 01/10/2021 11:29 PM CDT Unless preformed in the last 48 hours. Draw prior to heparin administration. Cisco Hernandez MD LAB BLOOD ORDERABLES Final Result Performing Organization Address City/[facility] Co de Phone Number [facility] [place] [address] * (ABNORMAL) Basic metabolic panel (01/10/2021 11:04 PM CDT) Pathologist [facility] [place] Sodium 144 135 - 145 mmol/L [facility] Potassium, pl 3.0(L) 3.3 - 4.9 mmol/L [facility] Chloride 106 97 - 110 mmol/L [facility] CO2 25 22 - 32 mmol/L [facility] Anion gap 13 2 - 15 mmol/L [facility] BUN 8 8 - 25 mg/dL [facility] Creatinine 0.70 0.60 - 1.10 mg/dL [facility] Glucose 131 70 - 199 mg/dL [facility] Comment: Interpretive Data Fasting glucose >/= 126 [...] interpretive data was last revised 2017. Calcium 8.8 8.5 - 10.3 mg/dL [facility] Blood 01/10/2021 11:0 4 PM CDT 01/10/2021 11:15 PM CDT us Cisco Hernandez MD LAB BLOOD ORDERABLES Final Result [facility] [place] [address] * (ABNORMAL) CBC with auto differential (01/10/2021 11:04 PM CDT) WBC 13.9(H) 3.8 - 9.9 K/cumm [facility] Hgb 11.4(L) 11.9 - 15.5 g/dL [facility] Hct 34.6(L) 35.6 - 45.5 % [facility] Plt 420(H) 150 - 400 K/cumm [facility] MPV 9.0(L) 9.1 - 12.3 fL [facility] RBC 4.02 3.90 - 5.20 M/cumm [facility] MCV 86.1 81.3 - 96.4 fL [facility] MCH 28.4 27.1 - 33.3 pg [facility] MCHC 32.9 32.3 - 35.7 g/dL [facility] RDW CV 13.2 11.1 - 14.9 % [facility] RDW SD 41.8 35.7 - 48.1 fL [facility] NRBC abs 0.00 0.00 - 0.01 K/cumm [facility] Blood 01/10/2021 11:0 4 PM CDT 01/10/2021 11:15 PM CDT us Cisco Hernandez MD LAB BLOOD ORDERABLES Final Result [facility] [place] [address] * ECG 12-LEAD (01/10/2021 10:27 PM CDT) Narrative [facility] - 01/10/2021 10:27 PM CDT Fabrice Ludwig MD PhD ? 01/10/2021 10:27 PM ECG 12 lead Date/Time: 01/10/2021 10:27 PM Performed by: Fabrice Ludwig MD PhD Authorized by: Fabrice Ludwig MD PhD Comments: ?? (22:21) sinus rhythm at 90 beats per minute; left axis deviation; left bundle branch block with secondary ST and T-wave abnormality. ??Abnormal EKG. ??Except for decreased rate, no significant change compared with May 20, 2020. Procedure Note Fabrice Ludwig MD PhD - 01/10/2021 10:27 PM CDT Procedure ECG 12 lead Date/Time: 01/10/2021 10:27 PM Performed by: Fabrice Ludwig MD PhD Authorized by: Fabrice Ludwig MD PhD Comments: (22:21) sinus rhythm at 90 beats per minute; left axis deviation; leftbundle branch block with secondary ST and T-wave abnormality. AbnormalEKG. Except for decreased rate, no significant change compared with 2020. Fabrice Ludwig MD PhD 01/10/212226 us Fabrice Ludwig MD PhD ECG ORDERABLES Fin al Result [facility] documented in this encounter Visit Diagnoses Diagnosis Aortic thrombus (CMS/HCC) (HCC)- Primary Left lower quadrant pain Abdominal pain, left lower quadrant COVID-19 virus infection Hypokalemia Hypopotassemia documented in this encounter Administered Medications Inactive Administered Medications - up to 3 most recent administrations Medication Order MAR Action Action Date Dose Rate Site acetaminophen (TYLENOL) tablet 1,000 mg 1,000 mg, oral, Every 6 hours scheduled, First dose on Thu01/11/21 at 1800 Given 01/15/2021 10:57 AM CDT 1,000 mg Given 01/15/2021 5:21 AM CDT 1,000 mg Given 01/15/2021 12:09 AM CDT 1,000 mg apixaban (ELIQUIS) tablet 10 mg 10 mg, oral, 2 times daily, First dose on Thu01/15/21 at 0900, For 7 days, Nurse to discontinue heparin infusion order and associated bolus at first administration of apixaban using ? order condition met? order source, Indications: deep venous thrombosisIndications:deep venous thrombosis Given 01/15/2021 9:05 AM CDT 10 mg apixaban (ELIQUIS) tablet 5 mg 5 mg, oral, 2 times daily, First dose on Thu01/22/21 at 0900, Nurse to discontinue heparin infusion order and associated bolus at first administration of apixaban using ? order condition met? order source, Indications: deep venous thrombosisIndications:deep venous thrombosis aspirin enteric coated tablet 81 mg 81 mg, oral, Daily, First dose on Thu01/11/21 at 0954, Do not crush, chew, cut, dissolve, open or otherwise manipulate tablet/capsule. Given 01/15/2021 9:07 AM CDT 81 mg Given 01/14/2021 7:47 AM CDT 81 mg Given 01/13/2021 9:04 AM CDT 81 mg atorvastatin (LIPITOR) tablet 40 mg 40 mg, oral, Nightly, First dose (after last modification) on Thu01/11/21 at 2100 Given 01/14/2021 8:46 PM CDT 40 mg Given 01/13/2021 9:52 PM CDT 40 mg Given 01/12/2021 9:31 PM CDT 40 mg benzonatate (TESSALON) capsule 100 mg 100 mg, oral, 3 times daily PRN, cough, Starting on 01/14/21 at 0834, Do not crush, chew, cut, dissolve, open or otherwise manipulate tablet/capsule., Indications: CoughIndications:Cough Given 01/14/2021 4:40 PM CDT 100 mg Given 01/14/2021 8:39 AM CDT 100 mg bisacodyL (DULCOLAX) suppository 10 mg 10 mg, rectal, Daily, First dose on 01/12/21 at 1015, Indications: constipationIndications:constipation Given 01/15/2021 9:08 AM CDT 10 mg Given 01/14/2021 7:36 AM CDT 10 mg buPROPion XL (WELLBUTRIN XL) 24 hour tablet 300 mg 300 mg, oral, Every morning, First dose on Thu01/11/21 at 0954, Do not crush, chew, cut, dissolve, open or otherwise manipulate tablet/capsule. Given 01/15/2021 9:07 AM CDT 300 mg Given 01/14/2021 7:47 AM CDT 300 mg Given 01/13/2021 9:04 AM CDT 300 mg famotidine (PEPCID) tablet 40 mg 40 mg, oral, Daily, First dose on Thu01/11/21 at 1630 Given 01/15/2021 9:07 AM CDT 40 mg Given 01/14/2021 7:47 AM CDT 40 mg Given 01/13/2021 9:04 AM CDT 40 mg fentaNYL (SUBLIMAZE) preservative free injection 50 mcg 50 mcg, intravenous, Once, On Thu01/11/21 at 0109, For 1 dose Given 01/11/2021 1:17 AM CDT 50 mcg heparin in 0.45% sodium chloride 25,000 units/250 mL (100 units/mL) infusion (premix) 0-33 Units/kg/hr ? 81.6 kg (0-26.928 mL/hr, rounded to 0-26.93 mL/hr), intravenous, Titrated, Starting on Sarah 01/10/21 at 2253, WEIGHT-BASED HEPARIN INFUSION Initial rate 18 Units/kg/hr. Adjust infusion based upon nomogram: PTT less than 40 seconds: Bolus if ordered (see PRN bolus order) , then increase infusion rate 3 units/kg/hour PTT 40 - 50.9 seconds: Bolus if ordered (see PRN bolus order), then increase infusion rate 2 units/kg/hour PTT 51 - 59.9 seconds: No bolus, increase infusion rate 1 unit/kg/hour PTT 60 - 94.9 seconds: No change PTT 95 - 104.9 seconds: No bolus, decrease infusion rate 1 unit/kg/hour PTT 105 - 114.9 seconds: Hold infusion for 30 minutes, then decrease infusion rate 2 units/kg/hour PTT 115 or greater seconds: Hold infusion for 1 hour, then decrease infusion rate 3 units/kg/hour Draw STAT PTT 6 hrs after initial heparin bolus, draw STAT PTT 6 hours after each dose/rate change, and every 6 hours until 2 consecutive PTTs are within therapeutic range. Once two consecutive PTT's are therapeutic (60-94.9 seconds), then draw PTT every AM until heparin is discontinued., Indications: Venous ThrombosisIndications:Venous Thrombosis New Bag 01/15/2021 5:22 AM CDT 20 Units/kg/hr 16.32 mL/hr Rate/Dose Change 01/14/2021 10:13 PM CDT 20 Units/kg/hr 16 .32 mL/hr New Bag 01/14/2021 1:01 PM CDT 19 Units/kg/hr 15.5 mL/h r HYDROmorphone (DILAUDID) injection 0.2 mg 0.2 mg, intravenous, Administer over 2 Minutes, Every 4 hours PRN, 1st line for pain, Starting on 01/13/21 at 0022 Given 01/13/2021 12:39 AM CDT 0.2 mg ioversoL (OPTIRAY 350) syringe syringe 115 mL 115 mL, intravenous, Once in imaging, contrast, Starting on 01/13/21 at 1728, For 1 dose Contrast Given 01/13/2021 5:49 PM CDT 115 mL ioversoL (OPTIRAY 350) syringe syringe 125 mL 125 mL, intravenous, Once in imaging, contrast, Starting on Sarah 01/10/21 at 2323, For 1 dose Contrast Given 01/10/2021 11:40 PM CDT 125 mL isosorbide mononitrate ER (IMDUR) extended release tablet 30 mg 30 mg, oral, Daily, First dose on Thu01/11/21 at 0953, Tablets that are scored may be split, but do not crush, chew, dissolve, open or otherwise manipulate tablet/capsule. Given 01/15/2021 9:07 AM CDT 30 mg Given 01/14/2021 7:48 AM CDT 30 mg Given 01/13/2021 9:04 AM CDT 30 mg Lactated Ringer's (LR) bolus 1,000 mL 1,000 mL, intravenous, Once, On Sarah 01/10/21 at 2308, For 1 dose New Bag 01/11/2021 1:17 AM CDT 1,000 mL loratadine (CLARITIN) tablet 10 mg 10 mg, oral, Daily, First dose on Thu01/11/21 at 1630 Given 01/15/2021 9:07 AM CDT 10 mg Given 01/14/2021 7:48 AM CDT 10 mg Given 01/13/2021 9:04 AM CDT 10 mg magnesium sulfate 4 g/100 mL in water (premix) 4 g 4 g, intravenous, Administer over 90 Minutes, Once, On 01/14/21 at 0330, For 1 dose New Bag 01/14/2021 4:31 AM CDT 4 g metoprolol tartrate (LOPRESSOR) immediate release tablet 50 mg 50 mg, oral, 2 times daily, First dose on Thu01/11/21 at 0954 Given 01/15/2021 9:07 AM CDT 50 mg Given 01/14/2021 8:47 PM CDT 50 mg Given 01/14/2021 7:48 AM CDT 50 mg morphine injection 4 mg 4 mg, intravenous, Administer over 4 Minutes, Once, On Thu01/11/21 at 0616, For 1 dose Given 01/11/2021 6:19 AM CDT 4 mg ondansetron (ZOFRAN) injection 4 mg 4 mg, intravenous, Administer over 2 Minutes, Every 4 hours PRN, nausea, vomiting, 1st line, Starting on Thu01/11/21 at 1654, First line Given 01/13/2021 12:58 PM CDT 4 mg Given 01/13/2021 12:39 AM CDT 4 mg ondansetron ODT (ZOFRAN-ODT) disintegrating tablet 4 mg 4 mg, oral, Every 6 hours PRN, nausea, vomiting, Starting on Thu01/11/21 at 1119, Indications: Nausea and VomitingIndications:Nausea and Vomiting Given 01/11/2021 1:59 PM CDT 4 mg Given 01/11/2021 11:30 AM CDT 4 mg oxyCODONE (ROXICODONE) tablet 5 mg 5 mg, oral, Every 4 hours PRN, 1st line for pain, Starting on Thu01/11/21 at 1119, Indications: PainIndications:Pain Given 01/11/2021 11:31 AM CDT [address] (PROTONIX) extended release tablet 40 mg 40 mg, oral, Daily, First dose on Thu01/11/21 at 1630, Do not crush, chew, cut, dissolve, open or otherwise manipulate tablet/capsule., Indications: Treatment of Non-Bleeding Gastric DisorderIndications:Treatment of Non-Bleeding Gastric Disorder Given 01/15/2021 9:08 AM CDT 40 mg Given 01/14/2021 7:48 AM CDT 40 mg Given 01/13/2021 9:04 AM CDT 40 mg polyethylene glycol (MIRALAX) packet 17 g 17 g, oral, Daily, First dose on Thu01/12/21 at 1015, Indications: constipationIndications:constipation Given 01/15/2021 9:08 AM CDT 17 g Given 01/14/2021 7:47 AM CDT 17 g Given 01/13/2021 9:04 AM CDT 17 g potassium chloride (KLOR-CON) packet 20 mEq 20 mEq, feeding tube, Every 4 hours, First dose on Thu01/14/21 at 0330, For 3 doses, Total dose = 60 mEq. Recommend to dilute each 15 mL with at least 6 ounces of water or juice prior to administration. Dissolve one packet in at least 120 mL of cold water or other beverage prior to administration. Given 01/14/2021 7:47 AM CDT 20 m Eq Given 01/14/2021 4:35 AM CDT 20 mEq potassium chloride (KLOR-CON) packet 40 mEq 40 mEq, feeding tube, Once, On Thu01/14/21 at 1200, For 1 dose, Dissolve one packet in at least 120 mL of cold water or other beverage prior to administration. Given 01/14/2021 11:44 AM CDT 40 mEq potassium chloride ER (KLOR-CON) extended release tablet 40 mEq 40 mEq, oral, Once, On Thu01/15/21 at 0615, For 1 dose, Do not crush, chew, cut, dissolve, open or otherwise manipulate tablet/capsule. Given 01/15/2021 6:02 AM CDT 40 mEq potassium chloride ER (KLOR-CON) extended release tablet 40 mEq 40 mEq, oral, Once, On Thu01/15/21 at 1100, For 1 dose, Do not crush, chew, cut, dissolve, open or otherwise manipulate tablet/capsule. Given 01/15/2021 10:57 AM CDT 40 mEq prochlorperazine (COMPAZINE) injection 5 mg 5 mg, intravenous, Administer over 2 Minutes, Every 6 hours PRN, nausea, vomiting, Starting on Thu01/11/21 at 1654, Compazine, if no response to zofran Given 01/11/2021 5:22 PM CDT 5 mg senna-docusate (PERICOLACE) 8.6-50 mg per tablet 1 tablet 1 tablet, oral, 2 times daily, First dose on Thu01/12/21 at 1015 Given 01/15/2021 9:07 AM CDT 1 tablet Given 01/14/2021 8:46 PM CDT 1 tablet Given 01/14/2021 7:47 AM CDT 1 tablet sodium chloride 0.9% flush 0.5-20 mL 0.5-20 mL, intra-catheter, Every 8 hours scheduled, First dose on Thu01/11/21 at 1630, Flush volume based on line type and size. , Indications: FlushingIndications:Flushing Given 01/15/2021 5:22 AM CDT 10 mL Given 01/14/2021 8:48 PM CDT 10 mL Given 01/14/2021 4:31 AM CDT 10 mL sodium chloride 0.9% infusion 75 mL/hr, intravenous, Continuous, Starting on Thu01/11/21 at 1630 New Bag 01/13/2021 9:51 PM CDT 75 mL/hr 75 mL/hr New Bag 01/13/2021 9:04 AM CDT 75 mL/hr 75 mL/hr New Bag 01/12/2021 6:55 PM CDT 75 mL/hr 75 mL/hr sodium phosphate - potassium phosphate (K-PHOS NEUTRAL) tablet 250 mg 250 mg, oral, Once, On Thu01/14/21 at 0330, For 1 dose, Each tablet contains elemental phosphorus 250 mg (8 mmol), potassium 45 mg (1.1 mEq), and sodium 298 mg (13 mEq). Given 01/14/2021 4:36 AM CDT 250 m g documented in this encounter Discontinued Medications Medication Sig Discontinue Reason Start Date End Da te atorvastatin (LIPITOR) 10 mg tablet Take 1 tablet (10 mg total) by mouth nightly Stop Taking at Discharge 11/22/2020 01/15/2021 documented as of this encounter Active and Recently Administered Medications Times are shown in CDT. Scheduled Medication Order 01/13/2021 01/14/2021 01/15/2021 acetaminophen (TYLENOL) tablet 1,000 mg 1,000 mg, oral, Every 6 hours scheduled, First dose on Thu01/11/21 at 1800 0528 (Given - Provider: Naif Sierra RN)1302 (Not Given - Provider: Sakshi Saleh - Reason: Patient/family refused)1609 (Given - Provider: Sakshi Saleh)2329 (Given - Provider: Rosamaria Miguel RN) 0618 (Given - Provider: Rosamaria Miguel RN)1144 (Given - Provider: Bryan Patten, ESAU)1639 (Given - Provider: Bryan Patten, ESAU) 0009 (Given - Provider: Ella Valdes)0521 (Given - Provider: Ella Valdes)1057 (Given - Provider: Bryan Patten, ESAU) apixaban (ELIQUIS) tablet 10 mg(Linked Group 1) 10 mg, oral, 2 times daily, First dose on Thu01/15/21 at 0900, For 7 days, Nurse to discontinue heparin infusion order and associated bolus at first administration of apixaban using ? order condition met? order source, Indications: deep venous thrombosis 904 (Given - Provider: Bryan Patten, ESAU) apixaban (ELIQUIS) tablet 5 mg(Linked Group 1) 5 mg, oral, 2 times daily, First dose on Thu01/22/21 at 0900, Nurse to discontinue heparin infusion order and associated bolus at first administration of apixaban using ? order condition met? order source, Indications: deep venous thrombosis aspirin enteric coated tablet 81 mg 81 mg, oral, Daily, First dose on Thu01/11/21 at 0954, Do not crush, chew, cut, dissolve, open or otherwise manipulate tablet/capsule. 0904 (Given - Provider: Sakshi Saleh) 0747 (Given - Provider: Bryan Patten RN) 0907 (Given - Provider: Bryan Patten RN) atorvastatin (LIPITOR) tablet 40 mg 40 mg, oral, Nightly, First dose (after last modification) on Thu01/11/21 at 2100 2152 (Given - Provider: Rosamaria Miguel RN) 2046 (Given - Provider: Ella Valdes) bisacodyL (DULCOLAX) suppository 10 mg 10 mg, rectal, Daily, First dose on Thu01/12/21 at 1015, Indications: constipation 0904 (Not Given - Provider: Sakshi Saleh - Reason: Patient/family refused) 0736 (Given - Provider: Bryan Patten, ESAU) 0908 (Given - Provider: Bryan Patten, ESAU) buPROPion XL (WELLBUTRIN XL) 24 hour tablet 300 mg 300 mg, oral, Every morning, First dose on Thu01/11/21 at 0954, Do not crush, chew, cut, dissolve, open or otherwise manipulate tablet/capsule. 0904 (Given - Provider: Sakshi Saleh) 0747 (Given - Provider: Bryan Patten RN) 0907 (Given - Provider: Bryan Patten, ESAU) famotidine (PEPCID) tablet 40 mg 40 mg, oral, Daily, First dose on Thu01/11/21 at 1630 0904 (Given - Provider: Sakshi Saleh) 0747 (Given - Provider: Bryan Patten RN) 0907 (Given - Provider: Bryan Patten, ESAU) isosorbide mononitrate ER (IMDUR) extended release tablet 30 mg 30 mg, oral, Daily, First dose on Thu01/11/21 at 0953, Tablets that are scored may be split, but do not crush, chew, dissolve, open or otherwise manipulate tablet/capsule. 0904 (Given - Provider: Sakshi Saleh) 0748 (Given - Provider: Bryan Patten RN) 0907 (Given - Provider: Bryan Patten RN) loratadine (CLARITIN) tablet 10 mg 10 mg, oral, Daily, First dose on Thu01/11/21 at 1630 0904 (Given - Provider: Sakshi Saleh) 0748 (Given - Provider: Bryan Patten RN) 0907 (Given - Provider: Bryan Patten RN) losartan (COZAAR) tablet 50 mg 50 mg, oral, Daily, First dose on Thu01/11/21 at 1630 0900 (Dose Auto Held) 0900 (Hold - Provider: Bryan Patten RN - Reason: See Provider Order) 0900 (Hold - Provider: Bryan Patten RN - Reason: See Provider Order)1032 (Unheld by Provider - Provider: Amber Atwood NP) magnesium sulfate 4 g/100 mL in water (premix) 4 g (COMPLETED) 4 g, intravenous, Administer over 90 Minutes, Once, On Thu01/14/21 at 0330, For 1 dose 0431 (New Bag - Provider: Rosamaria Miguel RN) metoprolol tartrate (LOPRESSOR) immediate release tablet 50 mg 50 mg, oral, 2 times daily, First dose on Thu01/11/21 at 0954 0904 (Given - Provider: Sakshi Saleh)2152 (Given - Provider: Rosamaria Miguel RN) 0748 (Given - Provider: Bryan Patten RN)2047 (Given - Provider: Ella Valdes) 0907 (Given - Provider: Bryan Patten, ESAU) pantoprazole DR (PROTONIX) extended release tablet 40 mg 40 mg, oral, Daily, First dose on Thu01/11/21 at 1630, Do not crush, chew, cut, dissolve, open or otherwise manipulate tablet/capsule., Indications: Treatment of Non-Bleeding Gastric Disorder 0904 (Given - Provider: Sakshi Saleh) 0748 (Given - Provider: Bryan Patten RN) 0908 (Given - Provider: Bryan Patten RN) polyethylene glycol (MIRALAX) packet 17 g 17 g, oral, Daily, First dose on Thu01/12/21 at 1015, Indications: constipation 0904 (Given - Provider: Sakshi Saleh) 0747 (Given - Provider: Bryan Patten RN) 0908 (Given - Provider: Bryan Patten RN) potassium chloride (KLOR-CON) packet 20 mEq (CANCELED) 20 mEq, feeding tube, Every 4 hours, First dose on Thu01/14/21 at 0330, For 3 doses, Total dose = 60 mEq. Recommend to dilute each 15 mL with at least 6 ounces of water or juice prior to administration. Dissolve one packet in at least 120 mL of cold water or other beverage prior to administration. 0435 (Given - Provider: Rosamaria Miguel RN)0747 (Given - Provider: Bryan Patten RN) potassium chloride (KLOR-CON) packet 40 mEq (COMPLETED) 40 mEq, feeding tube, Once, On Thu01/14/21 at 1200, For 1 dose, Dissolve one packet in at least 120 mL of cold water or other beverage prior to administration. 1144 (Given - Provider: Bryan Patten RN) potassium chloride ER (KLOR-CON) extended release tablet 40 mEq (COMPLETED) 40 mEq, oral, Once, On Thu01/15/21 at 0615, For 1 dose, Do not crush, chew, cut, dissolve, open or otherwise manipulate tablet/capsule. 0602 (Given - Provider: Ella Valdes) potassium chloride ER (KLOR-CON) extended release tablet 40 mEq (COMPLETED) 40 mEq, oral, Once, On Thu01/15/21 at 1100, For 1 dose, Do not crush, chew, cut, dissolve, open or otherwise manipulate tablet/capsule. 1057 (Given - Provider: Bryan Patten, ESAU) senna-docusate (PERICOLACE) 8.6-50 mg per tablet 1 tablet 1 tablet, oral, 2 times daily, First dose on Thu01/12/21 at 1015 0904 (Given - Provider: Sakshi Saleh)2153 (Given - Provider: Rosamaria Miguel RN) 0747 (Given - Provider: Bryan Patten RN)2046 (Given - Provider: Ella Valdes) 0907 (Given - Provider: Bryan Patten RN) sodium chloride 0.9% flush 0.5-20 mL 0.5-20 mL, intra-catheter, Every 8 hours scheduled, First dose on Thu01/11/21 at 1630, Flush volume based on line type and size. , Indications: Flushing 0529 (Given - Provider: Naif Sierra RN)1300 (Given - Provider: Sakshi Saleh)2153 (Given - Provider: Rosamaria Miguel, ESAU) 0431 (Given - Provider: Rosamaria Miguel RN)1400 (Canceled Entry - Provider: Bryan Patten RN)2048 (Given - Provider: Ella Valdes) 0522 (Given - Provider: Ella Valdes)1400 (Canceled Entry - Provider: Bryan Patten RN) sodium phosphate - potassium phosphate (K-PHOS NEUTRAL) tablet 250 mg (COMPLETED) 250 mg, oral, Once, On Thu01/14/21 at 0330, For 1 dose, Each tablet contains elemental phosphorus 250 mg (8 mmol), potassium 45 mg (1.1 mEq), and sodium 298 mg (13 mEq). 0436 (Given - Provider: Rosamaria Miguel RN) spironolactone (ALDACTONE) tablet 25 mg 25 mg, oral, Daily, First dose on Thu01/11/21 at 1630, On hold since Thu01/11/2021 at 1556 until manually unheld 0900 (Dose Auto Held) 0900 (Hold - Provider: Bryan Patten RN - Reason: See Provider Order) 0900 (Hold - Provider: Bryan Patten RN - Reason: See Provider Order)1601 (Unheld by Provider - Provider: Automatic Discharge Provider) Continuous Medication Order 01/13/2021 01/14/2021 01/15/2021 heparin in 0.45% sodium chloride 25,000 units/250 mL (100 units/mL) infusion (premix) (CANCELED) 0-33 Units/kg/hr ? 81.6 kg (0-26.928 mL/hr, rounded to 0-26.93 mL/hr), intravenous, Titrated, Starting on Sarah 01/10/21 at 2253, WEIGHT-BASED HEPARIN INFUSION Initial rate 18 Units/kg/hr. Adjust infusion based upon nomogram: PTT less than 40 seconds: Bolus if ordered (see PRN bolus order) , then increase infusion rate 3 units/kg/hour PTT 40 - 50.9 seconds: Bolus if ordered (see PRN bolus order), then increase infusion rate 2 units/kg/hour PTT 51 - 59.9 seconds: No bolus, increase infusion rate 1 unit/kg/hour PTT 60 - 94.9 seconds: No change PTT 95 - 104.9 seconds: No bolus, decrease infusion rate 1 unit/kg/hour PTT 105 - 114.9 seconds: Hold infusion for 30 minutes, then decrease infusion rate 2 units/kg/hour PTT 115 or greater seconds: Hold infusion for 1 hour, then decrease infusion rate 3 units/kg/hour Draw STAT PTT 6 hrs after initial heparin bolus, draw STAT PTT 6 hours after each dose/rate change, and every 6 hours until 2 consecutive PTTs are within therapeutic range. Once two consecutive PTT's are therapeutic (60-94.9 seconds), then draw PTT every AM until heparin is discontinued., Indications: Venous Thrombosis 0426 (New Bag - Provider: Daija Tom RN)0707 (Handoff - Provider: Sakshi Saleh)195 (New Bag - Provider: Sakshi Saleh)2020 (Handoff - Provider: Rosamaria Miguel RN) 0716 (Handoff - Provider: Rosamaria Miguel RN)1301 (New Bag - Provider: Bryan Patten RN)1933 (Handoff - Provider: Bryan Patten RN)2213 (Rate/Dose Change - Provider: Ella Valdes - Comment: Witness by ESAU Bravo) 0522 (New Bag - Provider: Ella Valdes)0906 (Stopped - Provider: Bryan Patten RN) sodium chloride 0.9% infusion (CANCELED) 75 mL/hr, intravenous, Continuous, Starting on 01/11/21 at 1630 0904 (New Bag - Provider: Sakshi Saleh)2151 (New Bag - Provider: Rosamaria Miguel RN) 0845 (Stopped - Provider: Bryan Patten RN) PRN Medication Order 01/13/2021 01/14/2021 01/15/2021 benzonatate (TESSALON) capsule 100 mg 100 mg, oral, 3 times daily PRN, cough, Starting on 01/14/21 at 0834, Do not crush, chew, cut, dissolve, open or otherwise manipulate tablet/capsule., Indications: Cough 0839 (Given - Provider: Bryan Patten, RN)1640 (Given - Provider: Bryan Patten RN) HYDROmorphone (DILAUDID) injection 0.2 mg (CANCELED) 0.2 mg, intravenous, Administer over 2 Minutes, Every 4 hours PRN, 1st line for pain, Starting on 01/13/21 at 0022 0039 (Given - Provider: Naif Sierra, ESAU) ioversoL (OPTIRAY 350) syringe syringe 115 mL (COMPLETED) 115 mL, intravenous, Once in imaging, contrast, Starting on Thu01/13/21 at 1728, For 1 dose 1749 (Contrast Given - Provider: Albania Salas, RT) ondansetron (ZOFRAN) injection 4 mg 4 mg, intravenous, Administer over 2 Minutes, Every 4 hours PRN, nausea, vomiting, 1st line, Starting on Thu01/11/21 at 1654, First line 0039 (Given - Provider: Naif Sierra, ESAU)1258 (Given - Provider: Sakshi Saleh) oxyCODONE (ROXICODONE) tablet 5 mg 5 mg, oral, Every 4 hours PRN, 1st line for pain, Starting on Thu01/11/21 at 1119, Indications: Pain 0023 (Held by Provider - Provider: Abida Dumont MD - Reason: Other) 0815 (Unheld by Provider - Provider: Kathy Chang MD) prochlorperazine (COMPAZINE) injection 5 mg 5 mg, intravenous, Administer over 2 Minutes, Every 6 hours PRN, nausea, vomiting, Starting on Thu01/11/21 at 1654, Compazine, if no response to zofran senna-docusate (PERICOLACE) 8.6-50 mg per tablet 1 tablet 1 tablet, oral, 2 times daily PRN, constipation, Starting on Thu01/11/21 at 1556, Indications: constipation sodium chloride 0.9% flush 0.5-20 mL 0.5-20 mL, intra-catheter, As needed, line care, Starting on Thu01/11/21 at 1556, Flush volume based on line type and size. Flush before and after each use. , Indications: Flushing Linked Groups Order Group 1: apixaban (ELIQUIS) tablet 10 mgJump to med 10 mg, oral, 2 times daily, First dose on Thu01/15/21 at 0900, For 7 days, Nurse to discontinue heparin infusion order and associated bolus at first administration of apixaban using ? order condition met? order source, Indications: deep venous thrombosis Followed by apixaban (ELIQUIS) tablet 5 mgJump to med 5 mg, oral, 2 times daily, First dose on Thu01/22/21 at 0900, Nurse to discontinue heparin infusion order and associated bolus at first administration of apixaban using ? order condition met? order source, Indications: deep venous thrombosis documented in this encounter Orders Medications Ordered That Allan ht Not Have Been Administered Count Last Ordered Date First Ordered Date apixaban (ELIQUIS) tablet 5 mg 2 01/15/2021 atorvastatin (LIPITOR) tablet 10 mg 1 01/11 losartan (COZAAR) tablet 50 mg 1 01/11/2021 ondansetron ODT (ZOFRAN-ODT) disintegrating tablet 4 mg 1 01/11/2021 senna-docusate (PERICOLACE) 8.6-50 mg per tablet 1 tablet 1 01/11/2021 sodium chloride 0.9% flush 0.5-20 mL 1 12/15 spironolactone (ALDACTONE) tablet 25 mg 1 1 heparin 1,000 unit/mL inject ion 2,000 Units 1 01/10/2021 heparin 1,000 unit/mL inject ion 3,000 Units 1 01/10/2021 Nursing Count Last Ordered Date First Orde red Date DISCHARGE CALL PROVIDER 1 01/15/2021 WEIGH PATIENT 1 01/11/2021 Consult Count Last Ordered Date First Orde red Date IP CONSULT TO VASCULAR ACCESS TEAM 1 2020 CORE MEASURES Count Last Ordered Date First Ord ered Date REASON FOR NO VTE PROPHYLAXIS AT ADMISSION 1 01/11/2021 ADT Patient Update Count Last Ordered Date Firs t Ordered Date ED IP DECISION TO ADMIT 1 01/11/2021 documented in this encounter Additional Health Concerns Infection Onset Date Last Indicated Resolved Time COVID19 12/29/2020 12/29/2020 01/29/2021 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
--- OUTSIDE RECORDS SUMMARY | 2024-03-18 05:01 | XMS_ITS | Encounter Summary ---
Author Organization [facility] Healthcare Address [address] [place] [address] Care Team Providers Care Plant Tour Guide Name Role Phone Newton Mendiola MD Primary Care Provider [phone] Sly Cade MD Unavailable [phone] Reason for Referral * MRI/CAT/PET Scan (Routine) - Closed Specialty Diagnoses / Procedures Referred By Nino fletcher Referred To Contact Radiology Diagnoses Acute recurrent pansinusitis Procedures CT Sinus Stealth Sheila Huber DO [address] [place] [address] DR CATHLEEN Arevalo [address] [address] Phone: tel: fax: [address] [phone] Referral ID Status Reason Start Date Expiration Date Visits Re quested Visits Authorized [id number] Closed 12/11/2020 01/27/2021 1 1 Reason for Visit * MRI/CAT/PET Scan (Routine) - Closed Specialty Diagnoses / Procedures Referred By Nino fletcher Referred To Contact Radiology Diagnoses Acute recurrent pansinusitis Procedures CT Sinus Stealth WO Contrast Sheila So DO [address] [place] [address] DR CATHLEEN Arevalo [address] [address] Phone: tel: fax: [address] [phone] Referral ID Status Reason Start Date Expiration Date Visits Re quested Visits Authorized [id number] Closed 12/11/2020 01/27/2021 1 1 Encounter Details Date Type Department Care Team (Latest Contact Info) Description 12/17/2020 6:55 AM CDT - 12/17/2020 11:59 PM CDT Hospital Encounter [facility] [address] [place] [address] Sheila So DO [address] [facility] [address] CATHLEEN Arevalo [address] [place] [address] Acute recurrent pansinusitis Discharge Disposition: Discharge to home or self [...] on file 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 Gender Identity Not on file Sexual Orientation Not on file documented as of this encounter Medications at Time of Discharge aspirin 81 mg tablet Take 1 tablet (81 mg total) by mouth daily atorvastatin (LIPITOR) 10 mg tablet Take 1 tablet (10 mg total) by mouth nightly 90 tablet 11/22/2020 1 buPROPion XL (WELLBUTRIN XL) 300 mg 24 hr tablet TAKE 1 TABLET BY MOUTH EVERY DAY 90 tablet 1 01/05/2020 2 dapagliflozin (FARXIGA) 5 mg tabletIndications :heart failure with reduced ejection fraction Take 1 tablet (5 mg total) by mouth daily 30 tablet 12/04/2020 1 ergocalciferol (VITAMIN D) 50,000 unit capsule Take [...] Name Priority Date/Time Associated Diagnosis Comments CT SINUS STEALTH WO CONTRAST Schedule Routine, Read Routine (OP Routine) 12/17/2020 7:36 AM CDT Acute recurrent pansinusitis documented in this encounter Results * CT Sinus Stealth [...] AM T: ??12/17/2020 7:40 AM Report ID: [id number] Reading Location: [id number] Procedure Note Jermain Live MD - 12/17/2020 [...] AM - Electronically signed by Jermain Live M.D. JR: Report ID: [id number] Reading Location: [id number] Sheila BrandtBrenda Estevantanneralexander DO IMG CT PROCEDURES Final Resu lt documented in this encounter Visit Diagnoses Diagnosis Acute recurrent pansinusitis documented in this encounter Care Teams Plant Tour Guide Relationship Specialty Start Date End Date Newton Mendiola MD [address] [address] PCP - General 06/09/16 Sly Cade MD [address] [address] Referring Physician Cardiology 12/07/18 documented as of this encounter
--- OUTSIDE RECORDS SUMMARY | 2024-03-18 05:01 | XMS_ITS | Encounter Summary ---
Author Organization [facility] Healthcare Address [address] [place] [address] Care Team Providers Care Jumbo Operator Name Role Phone Newton Mendiola MD Primary Care Provider [phone] Sly Cade MD Unavailable [phone] Tuyet Weir [facility] Unavailable [phone] Reason for Visit * Reason Comments Unsuccessful Phone Call 2 Encounter Details Date Type Department Care Team (Late st Contact Info) Description 02/05/2021 SHOP/CHAP Subsequent Outreach [facility] [address] [place] [id number] Tuyet Weir, [facility] [address] [facility] (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 Gender Identity Not on file Sexual Orientation Not on file documented as of this encounter Plan of Treatment Scheduled Procedures Name Priority Associated Diagnoses Date/Ti me ESOPHAGOGASTRODUODENOSCOPY Nausea Colon cancer screening COLONOSCOPY Nausea Colon cancer screening documented as of this encounter Visit Diagnoses Not on filedocumented in this encounter Care Teams Jumbo Operator Relationship Specialty Start Date End Date Newton Mendiola MD [address] [address] PCP - General 06/09/16 Sly Cade MD [address] [address] Referring Physician Cardiology 12/07/18 Tuyet Weir, SENIOR TECHNICAL WRITER [phone] [facility] ([facility] Mailstop [phone] [place] [address] SHOP Outpatient Heat Welder Plastics 01/16/21 02/11/21 documented as of this encounter
--- OUTSIDE RECORDS SUMMARY | 2024-03-18 05:01 | XMS_ITS | Encounter Summary ---
Author Organization [facility] Address [address] [place] [address] Care Team Providers Care Supervisor Tile And Mottle Name Role Phone Newton Mendiola MD Primary Care Provider [phone] Sly Cade MD Unavailable [phone] Tuyet Weir [facility] Unavailable [phone] Encounter Details Date Type Department Care Team (Late st Contact Info) Description 01/15/2021 [facility] [address] [facility] [address] [place] [phone] Vicky Donaldson, SUGAR CONTROLLER [address] [facility] [address] [place], [place] [id number] Social History Tobacco Use Types Packs/Day Years [...] and Family Not on file 2021 Attends [employer] Services Not on file 01/16 Active Member [...] on file 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 Mendiola called. 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
--- OUTSIDE RECORDS SUMMARY | 2024-03-18 05:01 | XMS_ITS | Encounter Summary ---
Author Organization [facility] Address [address] [place] [address] Phone Care Team Providers Care Bagger And Stock Handler Helper Name Role Phone Newton Mendiola MD Primary Care Provider [phone] Sly Cade MD Unavailable [phone] Tuyet Weir [facility] Unavailable [phone] Reason for Referral * MRI/CAT/PET Scan (Routine) - Closed Specialty Diagnoses / Procedures Referred By Contac t Referred To Contact Diagnoses LBBB (left bundle branch block) Chronic systolic (congestive) heart failure (HCC) Left lower quadrant pain Procedures CTA Chest Abdomen Pelvis Eduardo Kwon MD Phone: tel: fax: External Order Referral ID Status Reason Start Date Expiration Date Visits Re quested Visits Authorized [id number] Closed 01/25/2021 02/24/2022 1 1 CULTURE LABORATORY TECHNICIAN Encounter Details Date Type Department Care Team (Late st Contact Info) Description 01/25/2021 Orders Only [facility] [address] [facility] 8th [place] [address] [place] [id number] Eduardo Kwon MD [address] [place] [address] LBBB (left bundle branch block) (Primary Dx); Dissection of thoracic aorta (CMS/HCC) (HCC); Chronic systolic (congestive) heart failure (HCC); Left lower quadrant pain Social History Tobacco Use Types Packs/Day [...] and Family Not on file 2021 Attends [employer] Not on file 01/16 Active Member [...] to sleep or slept in a senior care (including now)? No 2021 Comments No Sex and Gender Information Value Date Recorded Sex Assigned at Not on file Legal Sex Female 7:55 AM AGRICULTURE LABORATORY TECHNICIAN Gender Identity Not on file Sexual Orientation Not on file documented as of this encounter Miscellaneous Notes * Addendum Note - Maeknzie Rick CMA - 01/25/2021 2:22 PM CSTAddended by: MAKENZIE RICK on: 01/25/2021 02:44 PM Modules accepted: Orders CULTURE LABORATORY TECHNICIAN documented in this encounter Plan of Treatment [...] heart failure (HCC) Left lower quadrant pain documented in this encounter Results * CTA Chest Abdomen Pelvis (06/03/2021 12:30 PM CDT) Anatomical Region Laterality Modality Body N/A Computed Tomogra phy 06/03/2021 2:00 PM CDT Impressions 06/03/2021 2:28 PM CDT 1. ??Resolution of prior descending ??thoracic aortic thrombosis with residual atherosclerosis similar to the prior study from 05/21/2020. 2. ??Interval evolution of the anterior splenic infarct. 3. ??Nonvisualization of the previously seen thrombus within the right internal iliac artery branches, which may represent resolution and a consequence of inadequate contrast opacification. Dictated by: Rommel Hanson M.D. The radiology attending physician has personally reviewed this study, and had reviewed and/or edited this written report and agrees with it. Electronically signed by: Darek Elizabeth M.D. 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 TECHNIQUE: CT angiography of the chest, abdomen, pelvis, and lower extremities was performed following the uneventful intravenous administration of 96 ml Optiray-350. Vascular 3D images were generated on a dedicated workstation and also reviewed. FINDINGS: CT chest abdomen pelvis from 10/13/2020. VASCULAR FINDINGS: Thoracic aorta: Resolution of the previously seen intravascular thrombus with residual mural atherosclerosis similar baseline study predating the thrombosis event 05/21/2020. Previously noted filling defect in the proximal thoracic aorta noted on study from 01/10/2022 is favored to represent Thoracic aortic mural thrombus (TAMT) which has since resolved in this patient on anticoagulation. ??No aneurysm, dissection, or significant stenosis. Aortic arch and branch vessels: No dissection, aneurysm, or significant stenosis Abdominal Aorta and Branches: Celiac axis: Previously described filling defect in the distal aspect of a superior splenic artery has resolved. SMA: no significant stenosis LEIA: no significant stenosis Right renal vessels: no significant stenosis Left renal vessels: no significant stenosis Infrarenal aorta: Minimal atherosclerotic plaque and calcifications without significant stenosis. No aneurysm. Pelvic Vessels: R. Common iliac artery: ??no significant stenosis R. External iliac artery: ??no significant stenosis R. Internal iliac artery: ??Previously described partially occlusive thrombus at branching of the right internal iliac artery is not seen on today's study. This may represent a combination of the thrombosis resolution and inadequate contrast opacification. L. Common iliac artery: ??no significant stenosis L. External iliac artery: ??no significant stenosis L. Internal iliac artery: ??no significant stenosis NON-VASCULAR FINDINGS: Patent central airways. ??Lungs clear with no focal consolidation, pleural effusion or pneumothorax. ??Mild traction bronchiectasis and bilateral upper superior lobe secondary to post radiation treatment. Multiple bilateral thyroid nodules better evaluated . Lesion or pneumothorax. ??Heart size normal with mild coronary calcifications noted. ??Three-vessel aortic arch with no pulmonary embolism noted. No supraclavicular axillary or mediastinal lymphadenopathy noted. Multinodular thyroid with nodules better evaluated on ultrasound on 06/03/2021. Mild diffuse hepatic steatosis with no focal lesion. Moderate atrophy of the left hepatic lobe. ??Changes of cholecystectomy and no intra or extrahepatic biliary ductal dilatation noted. ??Bilateral adrenals and pancreas appear normal. ??Evolving splenic superior pole infarct decrease fluid collection. Small peripheral area of hypoattenuation with cortical thickening consistent with chronic renal infarct with no area of acute infarct noted. No hydronephrosis or nephrolithiasis. Normal urinary bladder. ??Fibroid uterus noted with no adnexal mass appreciated. Small and large bowel appear normal in caliber with no evidence of obstruction. Mesenteric panniculitis noted with normal appendix and no intra-abdominal free fluid or air noted. Sigmoid diverticulosis without evidence of diverticulitis. There is no pelvic, retroperitoneal, or abdominal lymphadenopathy. There is no suspicious osseous lytic or blastic lesion. 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 TECHNIQUE: CT angiography of the chest, abdomen, pelvis, and lower extremities was performed following the uneventful intravenous administration of 96 ml Optiray-350. Vascular 3D images were generated on a dedicated workstation and also reviewed. FINDINGS: CT chest abdomen pelvis from 10/13/2020. VASCULAR FINDINGS: Thoracic aorta: Resolution of the previously seen intravascular thrombus with residual mural atherosclerosis similar baseline study predating the thrombosis event 05/21/2020. Previously noted filling defect in the proximal thoracic aorta noted on study from 01/10/2022 is favored to represent Thoracic aortic mural thrombus (TAMT) which has since resolved in this patient on anticoagulation. No aneurysm, dissection, or significant stenosis. Aortic arch and branch vessels: No dissection, aneurysm, or significant stenosis Abdominal Aorta and Branches: Celiac axis: Previously described filling defect in the distal aspect of a superior splenic artery has resolved. SMA: no significant stenosis LEIA: no significant stenosis Right renal vessels: no significant stenosis Left renal vessels: no significant stenosis Infrarenal aorta: Minimal atherosclerotic plaque and calcifications without significant stenosis. No aneurysm. Pelvic Vessels: R. Common iliac artery: no significant stenosis R. External iliac artery: no significant stenosis R. Internal iliac artery: Previously described partially occlusive thrombus at branching of the right internal iliac artery is not seen on today's study. This may represent a combination of the thrombosis resolution and inadequate contrast opacification. L. Common iliac artery: no significant stenosis L. External iliac artery: no significant stenosis L. Internal iliac artery: no significant stenosis NON-VASCULAR FINDINGS: Patent central airways. Lungs clear with no focal consolidation, pleural effusion or pneumothorax. Mild traction bronchiectasis and bilateral upper superior lobe secondary to post radiation treatment. Multiple bilateral thyroid nodules better evaluated . Lesion or pneumothorax. Heart size normal with mild coronary calcifications noted. Three-vessel aortic arch with no pulmonary embolism noted. No supraclavicular axillary or mediastinal lymphadenopathy noted. Multinodular thyroid with nodules better evaluated on ultrasound on 06/03/2021. Mild diffuse hepatic steatosis with no focal lesion. Moderate atrophy of the left hepatic lobe. Changes of cholecystectomy and no intra or extrahepatic biliary ductal dilatation noted. Bilateral adrenals and pancreas appear normal. Evolving splenic superior pole infarct decrease fluid collection. Small peripheral area of hypoattenuation with cortical thickening consistent with chronic renal infarct with no area of acute infarct noted. No hydronephrosis or nephrolithiasis. Normal urinary bladder. Fibroid uterus noted with no adnexal mass appreciated. Small and large bowel appear normal in caliber with no evidence of obstruction. Mesenteric panniculitis noted with normal appendix and no intra-abdominal free fluid or air noted. Sigmoid diverticulosis without evidence of diverticulitis. There is no pelvic, retroperitoneal, or abdominal lymphadenopathy. There is no suspicious osseous lytic or blastic lesion. IMPRESSION: 1. Resolution of prior descending thoracic aortic thrombosis with residual atherosclerosis similar to the prior study from 05/21/2020. 2. Interval evolution of the anterior splenic infarct. 3. Nonvisualization of the previously seen thrombus within the right internal iliac artery branches, which may represent resolution and a consequence of inadequate contrast opacification. Dictated by: Rommel Hanson M.D. The radiology attending physician has personally reviewed this study, and had reviewed and/or edited this written report and agrees with it. Electronically signed by: Darek Elizabeth M.D. 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, thoracic Chronic systolic (congestive) heart failure (HCC) Left lower quadrant pain Abdominal pain, left lower quadrant Dissection of thoracic aorta (HCC) Dissection of aorta, thoracic Aortic thrombus (CMS/HCC) (HCC) documented in this encounter Additional Health Concerns Infection Onset Date Last Indicated Resolved Time COVID19 12/29/2020 12/29/2020 01/29/2021 3:05 AM AGRICULTURE LABORATORY TECHNICIAN documented as of this encounter Care Teams Bagger And Stock Handler Helper Relationship Specialty Start Date End Date Newton Mendiola MD [address] [address] PCP - General 06/09/16 Sly Cade MD [address] [address] Referring Physician Cardiology 12/07/18 Tuyet Weir, AUTOMATIC DIE CUTTING MACHINE OPERATOR [address] [facility] ([facility]) Mailstop [phone] [place] [address] SHOP Outpatient Wool And Pelt Grader 01/16/21 02/11/21 documented as of this encounter
--- OUTSIDE RECORDS SUMMARY | 2024-03-18 05:01 | XMS_ITS | Encounter Summary ---
Author Organization [facility] Address [address] [facility] [place] [address] Care Team Providers Care Mdm Sr Name Role Phone Newton Mendiola MD Primary Care Provider [phone] Sly Cade MD Unavailable [phone] Encounter Details Date Type Department Care Team (Late st Contact Info) Description 12/17/2020 Telephone [facility] - [address] [place] [address] Gisell Chen MA Social History Tobacco Use Types Packs/Day Years Used Date Smoking Tobacco: Former Cigarettes 0.5 10 1 990 - 2000 Smokeless Tobacco: Never Alcohol Use Standard Drinks/Week Comments No 0 (1 standard drink = 0.6 oz pur e alcohol) Comments No Sex and Gender Information Value Date Recorded Sex Assigned at Not on file Legal Sex Female 7:55 AM SYSTEMS QA ANALYST Gender Identity Not on file Sexual Orientation Not on file documented as of this encounter Ordered Prescriptions Prescription Sig Dispense Quantity Refills Last Filled Start Date End Date famotidine (PEPCID) 40 mg tablet Take 1 tablet (40 mg total) by mouth daily 30 tablet 11 12/17/2020 12/16/2021 documented in this encounter Miscellaneous Notes * Telephone Encounter - Gisell Chen MA - 12/17/2020 1:27 PM CDT Spoke with patient, advised of treatment plan and sent in script for famotidine. Pt states her understanding and will try for 8 weeks. If no improvement will call back to discuss further. * Telephone Encounter - Gisell Chen MA - 12/17/2020 1:23 PM CDT ----- Message from Sheila So DO sent at 12/17/2020 12:41 PM CDT ----- Please call Sinus CT was clear, deviated nasal septum to the Left, will start Pepcid 40 mg at bedtime, continue Protonix in the morning 30 minutes before a meal, call in 8 weeks if no improvement documented in this encounter Plan of Treatment Scheduled Procedures Name Priority Associated Diagnoses Date/Ti me ESOPHAGOGASTRODUODENOSCOPY Nausea Colon cancer screening COLONOSCOPY Nausea Colon cancer screening documented as of this encounter Visit Diagnoses Not on filedocumented in this encounter Discontinued Medications Medication Sig Discontinue Reason Start Date End Da te famotidine (PEPCID) 40 mg tabletIndications:Laryng opharyngeal reflux (LPR) Take 1 tablet (40 mg total) by mouth nightly 12/17/2020 12/17/2020 documented as of this encounter Care Teams Mdm Sr Relationship Specialty Start Date End Date Newton Mendiola MD [address] [address] PCP - General 06/09/16 Sly Cade MD [address] [address] Referring Physician Cardiology 12/07/18 documented as of this encounter
--- OUTSIDE RECORDS SUMMARY | 2024-03-18 05:01 | XMS_ITS | Encounter Summary ---
Author Organization [facility] Address [address] [place] [address] Phone Care Team Providers Care Physical Education Teacher Name Role Phone Newton Mendiola MD Primary Care Provider [phone] Sly Cade MD Unavailable [phone] Encounter Details Date Type Department Care Team (Late st Contact Info) Description 01/11/2021 10:15 AM CDT Ancillary Procedure [facility] Vascular Lab IP [address] [facility] [address] [place] [id number] Social History Tobacco Use Types Packs/Day Years Used Date Smoking Tobacco: Former Cigarettes 0.5 10 1 990 - 2000 Smokeless Tobacco: Never Alcohol Use Standard Drinks/Week Comments No 0 (1 standard drink = 0.6 oz pur e alcohol) Comments No Sex and Gender Information Value Date Recorded Sex Assigned at Not on file Legal Sex Female 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 Gender Identity Not on file Sexual Orientation Not on file documented as of this encounter Plan of Treatment Scheduled Procedures Name Priority Associated Diagnoses Date/Ti me ESOPHAGOGASTRODUODENOSCOPY Nausea Colon cancer screening COLONOSCOPY Nausea Colon cancer screening documented as of this encounter Procedures Procedure Name Priority Date/Time Associated Diagnosis Comments US VEIN DUPLEX LOWER EXTREMITY BILATERAL COMPLETE IP Routine 01/11/2021 1:47 PM CDT documented in this encounter Results * US Vein Duplex Lower Extremity Bilateral Complete (01/11/2021 1:47 PM CDT) Anatomical Region Laterality Modality Vascular Bilateral Ultrasound 01/11/2021 11:0 8 AM CDT Narrative 01/11/2021 1:43 PM CDT [facility] - Department of Vascular Surgery, Vascular Laboratory [address] [place], [place] [id number] Lower Extremity Venous Ultrasound Report Patient Name: KATY SAUCEDA J : 1965 (55y 11m) Study Date: 01/11/2021 11:08:32 AM Gender: F Tech: nj Location: [facility] Ref.Provider: EVA REINA Quality: Adequate Order Provider: EVA REINA Procedures: Vascular Report: Venous Duplex imaging was performed bilaterally in the lower extremities. The common femoral, femoral, popliteal, posterior tibial, peroneal, great saphenous vein proximal at the junction were evaluated with compression maneuvers. Indications: Encounter for Other Preprocedural Exam. Findings: Performing Wind Project Manager: Zoila Marques RVT. Bilateral: No evidence [...] performed. Electronically Signed By: Cedric Saleh MD [facility] 2021-01-11 13:43:32 CDT CC: CC: Procedure Note Cedric Saleh MD - 01/11/2021 [facility] - Department of Vascular Surgery,Vascular Laboratory [address] [place] [address] Lower Extremity Venous Ultrasound Report Patient Name: KATY SAUCEDA JPatient ID: [id number] : 1965 (55y 11m)Study Date: 01/11/2021 11:08:32 AM Gender: FAccession #: [id number] Tech: iaLocation: [id number]-05L Ref.Provider: Marisa REINAality: Adequate Order Provider: Aditya REINA #: [id number] Procedures: Vascular Report: Venous Duplex imaging was performed bilaterally in the lower extremities.The common femoral, femoral, popliteal, posterior tibial, peroneal, great saphenousvein proximal at the junction were evaluated with compression maneuvers. Indications: Encounter for Other Preprocedural Exam. Findings: Performing Wind Project Manager: Zoila Marques, MAHI. Bilateral: No evidence of deep vein thrombus [...] performed. Electronically Signed By: Cedric Saleh MD [facility] 2021-01-11 13:43:32 CDT CC: CC: Eva Reina GROUNDS CARETAKER IMG US PROCEDURES F inal Result documented in this encounter Visit Diagnoses Not on filedocumented in this encounter Additional Health Concerns Infection Onset Date Last Indicated Resolved Time COVID19 12/29/2020 12/29/2020 01/29/2021 3:05 AM SHELLFISH FARMING SUPERVISOR documented as of this encounter Care Teams Physical Education Teacher Relationship Specialty Start Date End Date Newton Mendiola MD [address] [facility] [address] [place] [address] PCP - General 06/09/16 Sly Cade MD [address] [facility] [address] [place] [address] Referring Physician Cardiology 12/07/18 documented as of this encounter
--- OUTSIDE RECORDS SUMMARY | 2024-03-18 05:01 | XMS_ITS | Encounter Summary ---
Author Organization [facility] Address [address] [place] [address] Care Team Providers Care Negative Notcher Name Role Phone Newton Mendiola MD Primary Care Provider [phone] Sly Cade MD Unavailable [phone] Tuyet Weir [facility] Unavailable [phone] Encounter Details Date Type Department Care Team (Late st Contact Info) Description 2021 SHOP/CHAP Initial Eligibility Review [facility] OP CASE MANAGEMENT [address] [place] [address] Tuyet Weir, BUTCHER'S ASSISTANT [address] [facility] ([facility] Mailstop [phone] [place] [address] Social History Tobacco Use Types Packs/Day Years [...] on file Legal Sex Female 7:55 AM PARACHUTE ACCESSORIES ATTACHER Gender Identity Not on file Sexual Orientation [...] Time COVID19 12/29/2020 12/29/2020 01/29/2021 3:05 AM PARACHUTE ACCESSORIES ATTACHER documented as of this encounter Care Teams Negative Notcher Relationship Specialty Start Date End Date Newton Mendiola MD [address] [facility] [address] [place] [address] PCP - General 06/09/16 Sly Cade MD [address] [facility] [address] [place] [address] Referring Physician Cardiology 12/07/18 Tuyet Weir, BUTCHER'S ASSISTANT [address] [facility] ([facility]) Mailstop [phone] [place] [address] SHOP Outpatient Crm Analyst 01/16/21 02/11/21 documented as of this encounter
--- OUTSIDE RECORDS SUMMARY | 2024-03-18 05:02 | XMS_ITS | Encounter Summary ---
Author Organization [facility] Address [address] [place] [address] Phone Care Team Providers Care Integrity Analyst Name Role Phone Newton Mendiola MD Primary Care Provider Reason for Referral * Sleep Medicine (Routine) - Closed Specialty Diagnoses / Procedures Referred By Nino fletcher Referred To Contact Neurology Diagnoses Snoring Procedures PSG-Sleep Provider Use Only Isauro Newman MD Phone: tel: fax: [facility] [address] [place] [address] Phone: tel: fax: Referral ID Status Reason Start Date Expiration Date Visits Re quested Visits Authorized [id number] Closed 10/28/2018 05/08/2020 1 1 Reason for Visit * Reason Comments Sleep Apnea * Consultation (Routine) - Closed Specialty Diagnoses / Procedures Referred By Nino fletcher Referred To Contact Sleep Medicine Diagnoses LBBB (left bundle branch block) LV dysfunction Mixed hyperlipidemia Restless sleeper Sly Cade MD Phone: tel: fax: Isauro Newman MD [address] [place] [address] Phone: tel: fax: Referral ID Status Reason Start Date Expiration Date V isits Requested Visits Authorized [id number] Closed Specialty Services Required 06/25/2018 01/04/2020 1 1 Encounter Details Date Type Department Care Team (Late st Contact Info) Description 10/28/2018 10:30 AM CDT Office Visit [facility] [address] [place] [id number] Isauro Newman MD [address] [place] [address] Snoring (Primary Dx); LBBB (left bundle branch block); LV dysfunction; Mixed hyperlipidemia; Restless sleeper; Chronic insomnia Social History Tobacco Use Types Packs/Day Years Used Date Smoking Tobacco: Former Smokeless Tobacco: Never Alcohol Use Standard Drinks/Week Comments No 0 (1 standard drink = 0.6 oz pur e alcohol) Comments Unknown Sex and Gender Information Value Date Recorded Sex Assigned at Not on file 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 Gender Identity Not on file Sexual Orientation Not on file documented as of this encounter Last Filed Vital Signs Vital Sign Reading Time Taken Comments Blood Pressure 133/77 10/28/2018 10:31 AM CDT Pulse 88 10/28/2018 10:31 AM CDT Temperature - - Respiratory Rate - - Oxygen Saturation 98% 10/28/2018 10:31 AM CDT Inhaled Oxygen Concentration - - Weight 92.1 kg (203 lb) 10/28/2018 10:31 AM CDT Height 162.6 cm (5' 4 ) 10/28/2018 10:31 AM CDT Body Mass Index 34.84 10/28/2018 10:31 AM CDT documented in this encounter Progress Notes * Isauro Newman MD - 10/28/2018 10:30 AM CDT Patient's Name: Katy Sauceda Date of : 1965 Office Visit Date: October 28, [address] Sly Cade MD I had the pleasure of seeing this patient at the [facility] for evaluation of obstructive sleep apnea. HPI This is a patient with a h/o Lymphoma s/p radiation and chemo in 1992, chronic insomnia, LBBB, hypertension, and NICM, CHF (recovered LVEF from 29% to 50% 02/2018), who presents with a several-year history of snoring and gasping for breath. She was initially seen on 09/09/2016. A home sleep study was performed but was negative for COLT. 10/10/2016 Home sleep study (Weight 189 lbs): AHI 4.3/hour, SpO2 andre 80%, SpO2 <=88%: 2.8 min. An in-lab study was ordered but it was not done du eto insurance coverage issues. Now she has a different insurance and would like to have the sleep study to evaluate COLT. She gained 10 pounds since 2017. According to her grandchildren, she snores some nights. Her snoring started after her weight gain. She mostly sleeps on her side. Her breathing is more difficult when sleeping in the supine position.She has not been witnessed to stop breathing. She sometimes wakes up gasping for air. She has morning headaches. Her symptoms of CHF include CARTER. She is comfortable at rest but has SOB with short distances especially climbing stairs. She sleeps between 10PM-12AM to 8-9AM. Her sleep latency is between 1-2 hours (not taking any sleepaids). She wakes up every hour during the night, to use the restroom (once) or for no apparent reason. These awakenings are brief but sometimes prolonged. She feels unrefreshed upon awakening. She is tired but not sleepy during the day and does not nap. She scored 1/24 on the [place] Sleepiness Scale, which is normal. She denies a history of drowsy driving (no drowsy driving related motor vehicle accidents). She is not aware of symptoms of restless legs, leg jerks during sleep and denies disturbing dreams,dream enactment behavior, sleepwalking, sleep paralysis, cataplexy, or hypnagogic /hypnopompic hallucinations. Problem List: Patient Active Problem List Diagnosis ??? LV dysfunction ??? LBBB (left bundle branch block) ??? Mixed hyperlipidemia Allergies Allergen Reactions ??? Latex Unknown ??? Codeine Other (See comments) and Vomiting Reaction: RASH;, ??? Hydrocodone Vomiting ??? Penicillin Other (See comments) Reaction: UNKNOWN, Medication List: Current Outpatient Medications: ??? aspirin 81 mg tablet, daily., Disp: , Rfl: ??? buPROPion XL (WELLBUTRIN XL) 300 mg 24 hr tablet, Take 300 mg by mouth daily., Disp: , Rfl: 3 ??? escitalopram (LEXAPRO) 5 mg tablet, Take 5 mg by mouth daily., Disp: , Rfl: 1 ??? fluticasone (CHILDREN'S FLONASE ALLERGY RLF) 50 mcg/actuation nasal spray, daily., Disp: , Rfl: ??? isosorbide mononitrate ER (IMDUR) 30 mg 24 hr tablet, TAKE 1 TABLET BY MOUTH EVERY DAY, Disp: 30 tablet, Rfl: 5 ??? losartan (COZAAR) 25 mg tablet, Take 1 tablet (25 mg total) by mouth daily., Disp: 90 tablet, Rfl: 1 ??? metoprolol XL (TOPROL-XL) 50 mg 24 hr tablet, Take 1 tablet (50 mg total) by mouth daily., Disp: 90 tablet, Rfl: 1 ??? pantoprazole DR (PROTONIX) 40 mg EC tablet, Take 40 mg by mouth daily., Disp: , Rfl: 2 ??? rizatriptan (MAXALT) 10 mg tablet, TAKE 1 TABLET AT ONSET OF HEADACHE. MAY REPEAT EVERY 2 HOURS NEEDED. MAXIMUM 3 TABLETS IN 24 HOURS., Disp: , Rfl: ??? azithromycin (ZITHROMAX) 250 mg tablet, , Disp: , Rfl: ??? diclofenac DR (VOLTAREN) 50 mg EC tablet, Take 50 mg by mouth 2 (two) times a day, Disp: , Rfl:0 ??? omeprazole (PriLOSEC) 20 mg capsule, Take 20 mg by mouth daily., Disp: , Rfl: Current Facility-Administered Medications: ??? DOBUTamine in dextrose 5% (DOBUTREX) 250 mg/250 mL (1000 mcg/mL) infusion (premix), 40 mcg/kg/min, intravenous, Continuous, Sly Cade MD, Last Rate: 217.7 mL/hr at 03/12/18 1212, 40 mcg/kg/min at 03/12/18 1212 No family history on file. Social History Tobacco Use ??? Smoking status: Former Smoker ??? Smokeless tobacco: Never Used Substance Use Topics ??? Alcohol use: No Review of Systems Constitution: Positive for weight gain. HENT: Positive for congestion. Eyes: Negative. Cardiovascular: Negative. Respiratory: Positive for shortness of breath. Endocrine: Negative. Skin: Negative. Musculoskeletal: Positive for back pain, joint pain and muscle cramps. Gastrointestinal: Negative. Genitourinary: Negative. Neurological: Positive for headaches and numbness. Psychiatric/Behavioral: Positive for depression. The patient is nervous/anxious. Allergic/Immunologic: Negative. All other systems reviewed and are negative. Vital Signs BP 133/77 (BP Location: Right arm, Patient Position: Sitting) Pulse 88 Ht 162.6 cm (5' 4 ) Wt92.1 kg (203 lb) SpO2 98% BMI 34.84 kg/m?? Physical Exam: GENERAL: Overweight. Well developed, well nourished, in no acute distress. HEENT: Normal conjunctivae/sclerae. Thyroid is normal. No cervical lymphadenopathy. Mild retrognathia. Mallampati airway is class III. Tonsils not seen. The posterior oropharynx is normal. CARDIOVASCULAR: Regular rate and rhythm; mild systolic murmur, no gallops or rubs. PULMONARY: Lungs are clear to auscultation bilaterally. ABDOMEN: Soft, nontender and benign. EXREMITIES: No clubbing, no cyanosis. No edema. INTEGEMENTRY SYSTEM: Facial skin no irritation or breakouts, skin warm and dry, no rash. NEUROLOGIC: Alert, oriented, normal spontaneous fluent speech with full comprehension. PERRL, extraocular movements full, face symmetric, palate rise and tongue protrusion symmetric. Normal muscle tone, and strength. Data review: 07/24/2016 Cardiac cath: No significant CAD. 1. Moderate elevation of left ventricular end diastolic pressure (19 mmHg). 2. Mildly elevated systolic pressures (145/88). No angiographically significant coronary disease. 07/02/2016 Echocardiogram: LV cavity size is mildly dilated. Moderate Global LV Systolic Dysfunction. EF 29%; Paradoxical septal motion likely related to conduction delay. Mild Mitral Regurgitation. No previous examinations are available for comparison. Reduced global LV longitudinal function/strainpattern. Pseudonormal LV diastolic dysfunction with elevated LA pressure. 03/12/2018 TTE: Baseline: Normal LV+RV morphology and low normal LV function (LVEF 50%). LBBB septal motion. No significant MR, AR, TR, or TN recorded. Marked increase in the LV and RV contractility,LBBB septal motion exaggerated, no obvious ischemic segmental wall motion abnormalities. Maximal Dobutamine Stress Echocardiogram, NEGATIVE for myocardial ischemia Assessment: ICD-9-CM ICD-10-CM 1. Snoring 786.09 R06.83 2. LV dysfunction 429.9 I51.9 3. Chronic insomnia 780.52 F51.04 Plan: Snoring: This patient had a negative home sleep study for sleep apnea in 2017. Due to limitations of home sleep study, an in-lab study was recommended but was not done due to insurance coverage issues. Now she has a new insurance and is willing to proceed with in-lab study. The patient has gained weight during the interim, and her symptoms of snoring has been persistent. Given her age, gender, BMI, neck size, upper airway anatomy, LV dysfunction, chronic insomnia and snoring, an in-lab sleep study has been arranged to evaluate the patient for sleep disordered breathing. Pathyophysiology of sleep apnea, association between untreated sleep apnea and adverse cardiovascular events, and treatment options for COLT including CPAP, oral appliance therapy and Inspire therapy were discussed with the patient. LV dysfunction: Likely due to radiation for lymphoma. Her LVEF has recovered from 29% to 50% with medical therapy. She experiences SOB on exertion. Denies orthopnea or BNP. Chronic insomnia: Sleep hygiene was discussed. Thank you for allowing me to participate in the care of this pleasant patient. Please feel free to contact me with any concerns you may have. I will keep you informed of her sleep study results. Greater than 50% of visit time was spent on counseling and coordination of care. Total encounter duration: 40 minutes. ------ Isauro Newman MD, MSCE, FACP [employer] Neurology ABI Board Certified in Sleep Medicine [facility] [place] documented in this encounter Plan of Treatment Scheduled Procedures Name Priority Associated Diagnoses Date/Ti me ESOPHAGOGASTRODUODENOSCOPY Nausea Colon cancer screening COLONOSCOPY Nausea Colon cancer screening documented as of this encounter Results * PSG (COMPLEX) (12/06/2018 7:30 PM CDT) Narrative Isauro Newman MD - 12/06/2018 7:30 PM CDT Isauro Newman MD ? 12/07/2018 ??7:32 AM PSG-Sleep Provider Use Only Date/Time: 12/06/2018 10:00 PM Performed by: Isauro Newman MD Authorized by: Isauro Newman MD Isauro Newman MD SLEEP CENTER ORDERABLES Final Re sult documented in this encounter Visit Diagnoses Diagnosis Snoring- Primary Other dyspnea and respiratory abnormality LBBB (left bundle branch block) Other left bundle branch block LV dysfunction Left heart failure Mixed hyperlipidemia Restless sleeper Chronic insomnia Insomnia, unspecified Sleep disorder- Primary Unspecified sleep disturbance Snoring Other dyspnea and respiratory abnormality documented in this encounter Orders Outpatient Referral Count Last Ordered Date Fir st Ordered Date AMB REFERRAL TO SLEEP MEDICINE 1 10/28/2018 documented in this encounter Care Teams Integrity Analyst Relationship Specialty Start Date End Date Newton Mendiola MD [address] [address] PCP - General 06/09/16 documented as of this encounter
--- OUTSIDE RECORDS SUMMARY | 2024-03-18 05:02 | XMS_ITS | Encounter Summary ---
Author Organization [facility] Address [address] [place] [address] Care Team Providers Care Cover Machine Operator Name Role Phone Newton Mendiola MD Primary Care Provider [phone] Sly Cade MD Unavailable [phone] Reason for Visit * Reason Onset Date Comments Test Results 11/30/2019 Encounter Details Date Type Department Care Team (Late st Contact Info) Description 11/30/2019 Telephone [facility] [address] [place] [address] Levon Zaidi MA Test Results Social History Tobacco Use Types Packs/Day Years Used Date Smoking Tobacco: Former Cigarettes Smokeless Tobacco: Never Alcohol Use Standard Drinks/Week Comments No 0 (1 standard drink = 0.6 oz pur e alcohol) Comments Unknown Sex and Gender Information Value Date Recorded Sex Assigned at Not on file 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 Patient was informed that she should continue to self isolate until at least 10 days have passed since the onset of her symptoms and she has been fever free without the use of fever reducing medications for at least 24 hours. Patient verbalized understanding. * Telephone Encounter - Levon Zaidi MA - 11/30/2019 9:09 AM CDT ----- Message from Yudelka Nelson NP sent at 11/30/2019 8:32 AM CDT ----- [facility] CC Pool, please contact patient regarding negative covid results. Please instruct to follow the 10 day and 24 hour rule. documented in this encounter Plan of Treatment Scheduled Procedures Name Priority Associated Diagnoses Date/Ti me ESOPHAGOGASTRODUODENOSCOPY Nausea Colon cancer screening COLONOSCOPY Nausea Colon cancer screening documented as of this encounter Visit Diagnoses Not on filedocumented in this encounter Additional Health Concerns Infection Onset Date Last Indicated Resolved Time Respiratory Infection (LAYNE), contact + droplet Comment:Automatically added due to negative COVID-19 result. 11/29/2019 11/29/2019 12/13/2019 3:0 7 AM CDT documented as of this encounter Care Teams Cover Machine Operator Relationship Specialty Start Date End Date Newton Mendiola MD [id number] [address] PCP - General 06/09/16 Sly Cade MD [address] [address] Referring Physician Cardiology 12/07/18 documented as of this encounter
--- OUTSIDE RECORDS SUMMARY | 2024-03-18 05:02 | XMS_ITS | Encounter Summary ---
Author Organization [facility] Address [address] [place] [address] Care Team Providers Care Line Tender Name Role Phone Newton Mendiola MD Primary Care Provider [phone] Sly Cade MD Unavailable Reason for Visit * Reason Comments Sinus Problem x4 days; here two we eks ago for pink eye, was told she had fluid in her left ear. bloody nose, swelling around nose, sinus pressure; states she has chronic sinus disease . Encounter Details Date Type Department Care Team (Late st Contact Info) Description 01/07/2019 5:30 PM CDT Office Visit [facility] [address] [place] [address] Chantelle Elkins, BRIT [address] [place] [address] Rhinosinusitis (Primary Dx) Social History Tobacco Use Types Packs/Day Years Used Date Smoking Tobacco: Former Smokeless Tobacco: Never Alcohol Use Standard Drinks/Week Comments No 0 (1 standard drink = 0.6 oz pur e alcohol) Comments Unknown Sex and Gender Information Value Date Recorded Sex Assigned at Not on file 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 Gender Identity Not on file Sexual Orientation Not on file documented as of this encounter Last Filed Vital Signs Vital Sign Reading Time Taken Comments Blood Pressure 128/76 01/07/2019 5:41 PM CDT Pulse 88 01/07/2019 5:41 PM CDT Temperature 36.7 ??C (98 ??F) 01/07/2019 5:41 PM CDT Respiratory Rate 16 01/07/2019 5:41 PM CDT Oxygen Saturation 98% 01/07/2019 5:41 PM CDT Inhaled Oxygen Concentration - - Weight 93.4 kg (206 lb) 01/07/2019 5:41 PM CDT Height 162.6 cm (5' 4 ) 01/07/2019 5:41 PM CDT Body Mass Index 35.36 01/07/2019 5:41 PM CDT documented in this encounter Patient Instructions * Patient Instructions* Chantelle Rutherford NP - 01/07/2019 5:30 PM CDT Complete any meds prescribed Take OTC decongestants for congestion- Sudafed/Mucinex/Flonase Motrin/Tylenol for pain/fever Antihistamines- Zyrtec, Benadryl can be used for runny nose. Drink plenty of water & get plenty of rest A humidifier may also help with congestion May try sinus rinses or steam Follow up with your PCP in 3-5 days if you are not getting better documented in this encounter Ordered Prescriptions Prescription Sig Dispense Quantity Refills Last Filled Start Date End Date doxycycline monohydrate (MONODOX) 100 mg capsuleIndications :Rhinosinusitis Take 1 capsule (100 mg total) by mouth 2 (two) times a day for 10 days 20 capsule 01/07/2019 9 documented in this encounter Progress Notes * Chantelle Rutherford NP - 01/07/2019 5:30 PM CDT Images from the original note were not included. Subjective/Objective Patient ID: Katy Sauceda is a 53 y.o. female. Chief Complaint Sinus Problem (x4 days; here two weeks ago for pink eye, was told she had fluid in her left ear. bloody nose, swelling around nose, sinus pressure; states she has chronic sinus disease .) Presents to clinic for sinusitis- sinus pressure, pain, right ear pain, congestion, bloody nose & swelling around nose. She has been using flonase. She cannot take sudafed due to her heart problems. She states she has chronic sinus problems Sinus Problem This is a new problem. The current episode started in the past 7 days. The problem has been gradually worsening since onset. There has been no fever. Associated symptoms include congestion, ear pain,headaches and sinus pressure. Pertinent negatives include no chills or coughing. Past treatments include spray decongestants. The treatment provided no relief. Review of Systems Constitutional: Negative for chills and fever. HENT: Positive for congestion, ear pain, postnasal drip, sinus pressure and sinus pain. Respiratory: Negative for cough. Gastrointestinal: Negative for nausea and vomiting. Neurological: Positive for headaches. Physical Exam Constitutional: Appearance: She is well-developed. HENT: Right Ear: Hearing, tympanic membrane, ear canal and external ear normal. Left Ear: Hearing, tympanic membrane, ear canal and external ear normal. Nose: Mucosal edema present. Right Turbinates: Enlarged and swollen. Left Turbinates: Enlarged and swollen. Right Sinus: Maxillary sinus tenderness and frontal sinus tenderness present. Left Sinus: Maxillary sinus tenderness and frontal sinus tenderness present. Eyes: Conjunctiva/sclera: Conjunctivae normal. Neck: Musculoskeletal: Normal range of motion. Cardiovascular: Rate and Rhythm: Normal rate and regular rhythm. Pulmonary: Effort: Pulmonary effort is normal. Breath sounds: Normal breath sounds. Musculoskeletal: Normal range of motion. Lymphadenopathy: Cervical: No cervical adenopathy. Skin: General: Skin is warm and dry. Neurological: Mental Status: She is alert and oriented to person, place, and time. GCS: GCS eye subscore is 4. GCS verbal subscore is 5. GCS motor subscore is 6. Psychiatric: Speech: Speech normal. Behavior: Behavior normal. Vitals: 01/07/19 1741 BP: 128/76 BP Location: Left arm Patient Position: Sitting Pulse: 88 Resp: 16 Temp: 36.7 ??C (98 ??F) TempSrc: Oral SpO2: 98% Weight: 93.4 kg (206 lb) Height: 162.6 cm (5' 4 ) Assessment/Plan Complete any meds prescribed Take OTC decongestants for congestion- Sudafed/Mucinex/Flonase Motrin/Tylenol for pain/fever Antihistamines- Zyrtec, Benadryl can be used for runny nose. Drink plenty of water & get plenty of rest A humidifier may also help with congestion May try sinus rinses or steam Follow up with your PCP in 3-5 days if you are not getting better Diagnoses and all orders for this visit: Rhinosinusitis (Primary) - doxycycline monohydrate (MONODOX) 100 mg capsule; Take 1 capsule (100 mg total) by mouth 2 (two) times a day for 10 days Disposition- Discussed medications dosages, usage & potential side effects. Risks and interactions reviewed with patient. Indications for testing reviewed. Patient has been instructed to follow up w PCP or go to ER for any signs or symptoms that are of concern or worsening. Patient verbalizes understanding. The patient was given the opportunity to ask all questions and to have all questions answered. Patient is in agreement with the plan of care Chantelle Rutherford NP documented in this encounter Plan of Treatment Scheduled Procedures Name Priority Associated Diagnoses Date/Ti me ESOPHAGOGASTRODUODENOSCOPY Nausea Colon cancer screening COLONOSCOPY Nausea Colon cancer screening documented as of this encounter Visit Diagnoses Diagnosis Rhinosinusitis- Primary documented in this encounter Care Teams Line Tender Relationship Specialty Start Date End Date Newton Mendiola MD [address] [address] PCP - General 06/09/16 Sly Cade MD [address] [address] Referring Physician Cardiology 12/07/18 documented as of this encounter
--- OUTSIDE RECORDS SUMMARY | 2024-03-18 05:02 | XMS_ITS | Encounter Summary ---
Author Organization [facility] Address [address] [place] [address] Phone Care Team Providers Care Ball Points Inspector Name Role Phone Newton Mendiola MD Primary Care Provider [phone] Sly Cade MD Unavailable [phone] Reason for Visit * Diagnostic Imaging (Routine) - Closed Specialty Diagnoses / Procedures Referred By Contac t Referred To Contact Diagnoses LV dysfunction LBBB (left bundle branch block) Palpitations Procedures Transthoracic Echo Complete W Doppler/CF Sly Cade MD Phone: tel: fax: [facility] Referral ID Status Reason Start Date Expiration Date Visits Re quested Visits Authorized [id number] Closed 12/29/2018 01/27/2019 1 1 Encounter Details Date Type Department Care Team (Latest Contact Info) Description 12/29/2018 2:30 PM CDT Ancillary Procedure [address] [facility] [place] [address] Sly Cade MD [address] [place] [address] Discharge Disposition: Discharge to home or self care Social History Tobacco Use Types Packs/Day Years Used Date Smoking Tobacco: Former Smokeless Tobacco: Never Alcohol Use Standard Drinks/Week Comments No 0 (1 standard drink = 0.6 oz pur e alcohol) Comments Unknown Sex and Gender Information Value Date Recorded Sex Assigned at Not on file 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 Gender Identity Not on file Sexual Orientation Not on file documented as of this encounter Last Filed Vital Signs Vital Sign Reading Time Taken Comments Blood Pressure - - Pulse - - Temperature - - Respiratory Rate - - Oxygen Saturation - - Inhaled Oxygen Concentration - - Weight 94.1 kg (207 lb 7.3 oz) 12/29/2018 2:41 P M CDT Height 162.6 cm (5' 4 ) 12/29/2018 2:41 PM CDT Body Mass Index 35.61 12/29/2018 2:41 PM CDT documented in this encounter Discharge Disposition Disposition [...] (TTE) COMPLETE W DOPPLER/CF W CONTRAST Routine 12/29/2018 3:45 PM CDT LV dysfunction LBBB (left bundle branch block) Palpitations documented in this encounter Visit Diagnoses Not on filedocumented in this encounter Administered Medications Inactive Administered Medications - up to 3 most recent administrations Medication Order MAR Action Action Date Dose Rate Site perflutren protein-a (OPTISON) 3 mL in sodium chloride 0.9% 8 mL syringe 1-8 mL, intravenous, Once in imaging, contrast, Starting on Thu12/29/18 at 1535, For 1 dose, Intra-Procedure (CV) Given 12/29/2018 3:36 PM CDT 2 mL documented in this encounter Care Teams Ball Points Inspector Relationship Specialty Start Date End Date Newton Mendiola MD [address] [place] [id number] PCP - General 06/09/16 Sly Cade MD [address] [address] Referring Physician Cardiology 12/07/18 documented as of this encounter
--- OUTSIDE RECORDS SUMMARY | 2024-03-18 05:02 | XMS_ITS | Encounter Summary ---
Author Organization [facility] Address [address] [facility] [address] [place] [address] Care Team Providers Care Room Server Name Role Phone Newton Mendiola MD Primary Care Provider [phone] Sly Cade MD Unavailable [phone] Reason for Visit * Reason Comments Eye Problem right eye. pt states that she thinks she has pink eye, feels swollen. started last night. Encounter Details Date Type Department Care Team (Late st Contact Info) Description 12/23/2018 4:30 PM CDT Office Visit [facility] [address] [place] [id number] Za Coreas, JERKER [address] [place] [address] Acute conjunctivitis of left eye, unspecified acute conjunctivitis type (Primary Dx) Social History Tobacco Use Types Packs/Day Years Used Date Smoking Tobacco: Former Smokeless Tobacco: Never Alcohol Use Standard Drinks/Week Comments No 0 (1 standard drink = 0.6 oz pur e alcohol) Comments Unknown Sex and Gender Information Value Date Recorded Sex Assigned at Not on file 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 Gender Identity Not on file Sexual Orientation Not on file documented as of this encounter Last Filed Vital Signs Vital Sign Reading Time Taken Comments Blood Pressure 132/82 12/23/2018 4:20 PM CDT Pulse 92 12/23/2018 4:20 PM CDT Temperature 36.8 ??C (98.3 ??F) 12/23/2018 4:20 PM CD T Respiratory Rate 16 12/23/2018 4:20 PM CDT Oxygen Saturation 97% 12/23/2018 4:20 PM CDT Inhaled Oxygen Concentration - - Weight 93.4 kg (205 lb 12.8 oz) 12/23/2018 4:20 PM CDT Height 162.6 cm (5' 4.02 ) 12/23/2018 4:20 PM CD T Body Mass Index 35.31 12/23/2018 4:20 PM CDT documented in this encounter Patient Instructions * Patient Instructions* Za Coreas NP - 12/23/2018 4:30 PM CDT Use your eye drops or ointment as directed Practice good hand hygiene before and after administering medication Wash your hands if you touch your eye Do not touch the tip of the medication bottle to your eye Follow up with PCP if you are not getting better in a 3-4 days Go to the ER if you experience deep eye pain or vision loss/changes Diagnoses and all orders for this visit: Acute conjunctivitis of left eye, unspecified acute conjunctivitis type (Primary) - trimethoprim-polymyxin B (POLYTRIM) ophthalmic solution; Administer 2 drops into both eyes 4 (four) times a day for 7 days documented in this encounter Ordered Prescriptions Prescription Sig Dispense Quantity Refills Last Filled Start Date End Date trimethoprim-polymy dona B (POLYTRIM) ophthalmic solutionIndications :Acute conjunctivitis of left eye, unspecified acute conjunctivitis type Administer 2 drops into both eyes 4 (four) times a day for 7 days 10 mL 12/23/2018201 9 documented in this encounter Progress Notes * Za Coreas NP - 12/23/2018 4:30 PM CDT Images from the original note were not included. Subjective/Objective Patient ID: Katy Sauceda is a 53 y.o. female. Chief Complaint Eye Problem ( right eye. pt states that she thinks she has pink eye, feels swollen. started last night.) Patient states her had pink eye last week and her eye started bothering her last night. Conjunctivitis The current episode started yesterday. The onset was gradual. The problem is mild. Nothing aggravates the symptoms. Associated symptoms include eye itching, eye discharge and eye pain. Pertinent negatives include no fever, no decreased vision, no double vision, no photophobia, no headaches and no sore throat. The eye pain is mild. Both eyes are affected. Review of Systems Constitutional: Negative for fever. HENT: Negative for sore throat. Eyes: Positive for pain, discharge and itching. Negative for double vision and photophobia. Neurological: Negative for headaches. Physical Exam Constitutional: She is oriented to person, place, and time. She appears well- developed and well-nourished. No distress. HENT: Right Ear: Tympanic membrane, external ear and ear canal normal. Left Ear: Tympanic membrane, external ear and ear canal normal. Mouth/Throat: Oropharynx is clear and moist. Eyes: Pupils are equal, round, and reactive to light. Lids are normal. Right eye exhibits discharge. Right conjunctiva is injected. Left conjunctiva is injected. Right eye exhibits normal extraocularmotion and no nystagmus. Left eye exhibits normal extraocular motion and no nystagmus. Cardiovascular: Normal rate, regular rhythm and normal heart sounds. Pulmonary/Chest: Effort normal and breath sounds normal. No respiratory distress. Abdominal: Soft. Musculoskeletal: Normal range of motion. Lymphadenopathy: She has no cervical adenopathy. Neurological: She is alert and oriented to person, place, and time. Skin: Skin is warm and dry. Psychiatric: She has a normal mood and affect. Her speech is normal and behavior is normal. Thoughtcontent normal. Vitals reviewed. Vitals: 12/23/18 1620 BP: 132/82 BP Location: Right arm Patient Position: Sitting Pulse: 92 Resp: 16 Temp: 36.8 ??C (98.3 ??F) TempSrc: Oral SpO2: 97% Weight: 93.4 kg (205 lb 12.8 oz) Height: 162.6 cm (5' 4.02 ) Assessment/Plan Diagnoses and all orders for this visit: Acute conjunctivitis of left eye, unspecified acute conjunctivitis type (Primary) - trimethoprim-polymyxin B (POLYTRIM) ophthalmic solution; Administer 2 drops into both eyes 4 (four) times a day for 7 days Use your eye drops or ointment as directed Practice good hand hygiene before and after administering medication Wash your hands if you touch your eye Do not touch the tip of the medication bottle to your eye Follow up with PCP if you are not getting better in a 3-4 days Go to the ER if you experience deep eye pain or vision loss/changes Disposition- Discussed medications dosages, usage & potential [...] in agreement with the plan of care Za Coreas NP documented in this encounter Plan of Treatment Scheduled Procedures Name Priority Associated Diagnoses Date/Ti me ESOPHAGOGASTRODUODENOSCOPY Nausea Colon cancer screening COLONOSCOPY Nausea Colon cancer screening documented as of this encounter Visit Diagnoses Diagnosis Acute conjunctivitis of left eye, unspecified acute conjunctivitis type- Primary documented in this encounter Care Teams Room Server Relationship Specialty Start Date End Date Newton Mendiola MD [address] [address] PCP - General 06/09/16 Sly Cade MD [address] [address] Referring Physician Cardiology 12/07/18 documented as of this encounter
--- OUTSIDE RECORDS SUMMARY | 2024-03-18 05:02 | XMS_ITS | Encounter Summary ---
Author Organization [facility] Healthcare Address [address] [place] [id number] Care Team Providers Care Environmental Monitoring Specialist Name Role Phone Newton Mendiola MD Primary Care Provider [phone] Sly Cade MD Unavailable [phone] Reason for Visit * Reason Comments Palpitations Rapid Heart Rate Encounter Details Date Type Department Care Team (Latest Contact Info) Description 05/20/2020 2:28 PM BODY ENGINEER - 05/21/2020 4:15 PM BODY ENGINEER Hospital Encounter [facility] [address] [place] [id number] Amairani Sorto MD [address] [place] [address] [place] [address] [place] [id number] [address] [place] [id number] [address] Chest pain, unspecified type (Primary Dx) Discharge Disposition: Discharge to home or self care Social History Tobacco Use Types Packs/Day Years Used Date Smoking Tobacco: Former Cigarettes Smokeless Tobacco: Never Alcohol Use Standard Drinks/Week Comments No 0 (1 standard drink = 0.6 oz pur e alcohol) Comments No Sex and Gender Information Value Date Recorded Sex Assigned at Not on file Legal Sex Female 7:55 AM BODY ENGINEER Gender Identity Not on file Sexual Orientation Not on file documented as of this encounter Last Filed Vital Signs Vital Sign Reading Time Taken Comments Blood Pressure 107/59 05/21/2020 12:17 PM BODY ENGINEER Pulse 75 05/21/2020 12:17 PM BODY ENGINEER Temperature 36.7 ??C (98.1 ??F) 05/21/2020 12:[address] Respiratory Rate 18 05/21/2020 12:17 PM BODY ENGINEER Oxygen Saturation 99% 05/21/2020 12:17 PM BODY ENGINEER Inhaled Oxygen Concentration - - Weight 88.2 kg (194 lb 7.1 oz) 05/20/2020 6:27 P M BODY ENGINEER Height 162.6 cm (5' 4 ) 05/20/2020 6:27 PM BODY ENGINEER Body Mass Index 33.38 05/20/2020 6:27 PM BODY ENGINEER documented in this encounter Discharge Diagnoses Diagnosis Palpitations - PALPITATIONS Chronic systolic (congestive) heart failure (HCC) - CHRONIC SYSTOLIC (CONGESTIVE) HEART FAILURE Other cardiomyopathies (HCC) - OTHER CARDIOMYOPATHIES Gastro-esophageal reflux disease without esophagitis - GASTRO-ESOPHAGEAL REFLUX DISEASE WITHOUT ESOPHAGITIS Obesity, unspecified - OBESITY, UNSPECIFIED Hyperlipidemia, unspecified - HYPERLIPIDEMIA, UNSPECIFIED Hypertensive heart disease with heart failure (CMS/HCC) (HCC) - HYPERTENSIVE HEART DISEASE WITH HEART FAILURE Unspecified hypertensive heart disease with heart failure Hypertensive urgency - HYPERTENSIVE URGENCY oysterman (current) use of aspirin - FPC (CURRENT) USE OF ASPIRIN Other care home (current) drug therapy - OTHER FPC (CURRENT) DRUG THERAPY Personal history of nicotine dependence - PERSONAL HISTORY OF NICOTINE DEPENDENCE Personal history of irradiation - PERSONAL HISTORY OF IRRADIATION Personal history of irradiation, presenting hazards to health Personal history of urinary calculi - PERSONAL HISTORY OF URINARY CALCULI Left bundle-branch block, unspecified - LEFT BUNDLE-BRANCH BLOCK, UNSPECIFIED Personal history of non-Hodgkin lymphomas - PERSONAL HISTORY OF NON-HODGKIN LYMPHOMAS Body mass index (BMI) 33.0-33.9, adult - BODY MASS INDEX [BMI] 33.0-33.9, ADULT documented in this encounter Discharge Summaries * Amanda Parra MD - 05/21/2020 3:07 PM CST Inpatient Discharge Summary BRIEF OVERVIEW Admitting Provider: Becik Lovett MD Discharge Provider: Amanda Parra,* Admission Date: 05/20/2020 Discharge Date: 05/21/2020 Discharge Diagnosis: Palpitations Chronic systolic HF Hospital Course: Myles Sauceda is a 35 year old female with PMH of Chronic Systolic HF, HTN, HLD, GERD, Hodgkin Disease (1992), and LBBB who presents with c/o chest pain with palpitations. Associated symptoms include tachycardia (120s), nausea, frontal headache, diaphoresis and right sided neck pain. Patient reports that she was sitting in her car around 1330 when she began having palpitations. Soon afterwards she says she began sweating, became nauseous and had a brief, sharp mid-sternal chest pain. She denies fever, chills, SOB, vomiting, abdominal pain or dysuria. patient is being followed by cardiology (Matt Remy MD [facility]). Last office visit note (03/03/2020) reports TTE 12/29/18 = LVEDD 4.3 cm with LVEF 41% & global hypokinesis. Dr Remy notes she states her palpitations have beenongoing for the past few years and all rhythm monitor have not documented any arrhythmias . He advised her to obtain a [employer] ECG monito to obtain her own rhythm strips which she says showed STwith rate of 120. Patient is a former smoker and denies alcohol or illicit drug use. Labs: Troponin<6 => 6 (x3) Acute Chest Pain + Palpitations- POA -denies chest pain at time of assessment -telemetry -resume home ASA, Imdur and metoprolol -stress test -cardiology consult. Sees dr remy at [facility]. Px is to make appointment to see on or ?? Hypertensive Urgency- POA -BP 175/99 at time of arrival -resume home BP medications ?? Chronic Systolic HF -stable ?? Hx of Non hodgkins lymphoma -has not followed up for a long time -CT chest -fu with oncology as prior Obesity -BMII 33.38 -encouraged dietary and lifestyle modificatins Physical Exam at Discharge: General: awake, not in distress Head: atraumatic Eyes: anicteric Ent: no gross abnormalities Neck: no JVD Chest: symmetrical Lungs: clear Heart: RRR Abdomen: soft, non tender Extremities: no edema Neuro: oriented x 4 Discharge Condition: stable Discharge Disposition: Home Discharge Medications: Your medication list CHANGE how you take these medications buPROPion XL 300 mg 24 hr tablet TAKE 1 TABLET BY MOUTH EVERY DAY Commonly known as: WELLBUTRIN XL What changed: when to take this ergocalciferol 50,000 unit capsule TAKE 1 CAPSULE BY MOUTH ONE TIME PER WEEK Commonly known as: VITAMIN D What changed: See the new instructions. CONTINUE taking these medications aspirin 81 mg enteric coated tablet Children's Flonase Allergy Rlf 50 mcg/actuation nasal spray Generic drug: fluticasone propionate isosorbide mononitrate ER 30 mg 24 hr tablet Take 1 tablet (30 mg total) by mouth daily Commonly known as: IMDUR loratadine 10 mg tablet Commonly known as: CLARITIN losartan 50 mg tablet Take 1 tablet (50 mg total) by mouth daily Commonly known as: COZAAR Maxalt 10 mg tablet Generic drug: rizatriptan metoprolol XL 50 mg extended release tablet Take 1 tablet (50 mg total) by mouth daily Commonly known as: TOPROL-XL pantoprazole DR 40 mg EC tablet TAKE 1 TABLET BY MOUTH EVERY DAY Commonly known as: PROTONIX Amanda Parra M.D. Internal Medicine Cc:Newton Mendiola MD DC encounter >35 minutes ENGINEER documented in this encounter Medications at Time of Discharge aspirin 81 mg tablet Take 1 tablet (81 mg total) by mouth daily buPROPion XL (WELLBUTRIN XL) 300 mg 24 hr tablet TAKE 1 TABLET BY MOUTH EVERY DAY 90 tablet 1 01/05/2020 2 ergocalciferol (VITAMIN D) 50,000 unit capsule TAKE 1 CAPSULE BY MOUTH ONE TIME PER WEEK 12 capsule 02/26/2020 1 fluticasone (CHILDREN'S FLONASE ALLERGY RLF) 50 mcg/actuation nasal spray Administer 1 spray into each nostril daily as needed 07/09/2016 1 isosorbide mononitrate ER (IMDUR) 30 mg 24 hr tablet Take 1 tablet (30 mg total) by mouth daily 30 tablet 5 02/23/2020 1 loratadine (CLARITIN) 10 mg tablet Take 10 mg by mouth daily 3 losartan (COZAAR) 50 mg tablet Take 1 tablet (50 mg total) by mouth daily 90 tablet 3 02/23/2020 2 metoprolol XL (TOPROL-XL) 50 mg extended release tablet Take 1 tablet (50 mg total) by mouth daily 90 tablet 3 02/23/[address] (PROTONIX) 40 mg EC tablet TAKE 1 TABLET BY MOUTH EVERY DAY 90 tablet 1 03/21/2020 1 rizatriptan (MAXALT) 10 mg tabletIndications :Migraine Take 10 mg by mouth once as needed 07/09/2016 1 documented as of this encounter Discharge Disposition Disposition Code Departure Means Destination Discharge to home or self care documented in this encounter Progress Notes * Kathy Choi, RD - 05/21/2020 1:27 PM CST Nutrition Assessment Reason for Assessment: Screened at Nutrition Risk, Initial Nutrition Assessment and Consult/Referral Encounter Date: 05/21/20 1:27 PM Nutrition Assessment and Plan: Patient is a 55 y.o. female. Admit Dx: HIGH HEART RATE. Admitted on 05/20/2020, current LOS is 1 days. Pt with consult for 10 lb wt loss d/t poor appetite. Pt also with MST score of 2 (2-13 lb wt loss and decreased appetite). Per chart review, pt weighed 91.2 kg on 02/23/20, indicating a 6.6 lb (3.2%) wt loss over the past 3 months prior to admit. Pt without significant wt loss per ASPEN guidelines. Pt without significant signs of fat/muscle loss per physical assessment. However, pt reports having poor intake, eating < 50% of normal, over the past 3-4 weeks. Pt at risk for malnutrition, however, does not meet additional criteria at this time. Pt intake continues to be inadequate. Pt currently NPO status and unable to obtain adequate nutrition with current diet order. Recommend diet advancement once medically appropriate. Pt reports drinking protein shakes at home for the past week. Pt agreed to supplement initiation as diet advances. Encouraged pt to continue with protein shakes/nutritional supplements for additional nutrition as needed s/p d/c. Will continue to monitor pt and will f/u with diet advancement, supplement needs, nutrition and wt status, labs, and any additional nutrition needs. Wt Readings from Last 10 Encounters: 05/20/20 88.2 kg (194 lb 7.1 oz) 02/23/20 91.2 kg (201 lb 1.9 oz) 11/28/19 90.7 kg (200 lb) 07/08/19 89.8 kg (198 lb) 01/07/19 93.4 kg (206 lb) 12/29/18 94.1 kg (207 lb 7.3 oz) 12/29/18 94.1 kg (207 lb 8 oz) 12/23/18 93.4 kg (205 lb 12.8 oz) 12/06/18 91.4 kg (201 lb 8 oz) 10/28/18 92.1 kg (203 lb) Malnutrition Scoring Tool (MST) What diet do you follow at home?: regular Have You Recently Lost Weight Without Trying?: Yes (Comment) How Much Weight Have You Lost?: 2 - 13 lb Have you been eating poorly because of a decreased appetite?: Yes Malnutrition Screening Tool (MST) Score: 2 Nutrition Screen What diet do you follow at home?: regular Dietary Orders (From admission, onward) Start Ordered 05/21/20 0001 NPO Diet Diet effective midnight 05/20/20 1754 Nutrition Diagnosis 1: Inadequate energy intake Related to: NPO status Evidenced by: Physical finding ?? Interventions: Other (comment)(follow up) ?? Monitoring and Evaluation: Diet advancement, Labs, Plan of care ?? Goals: Advance to oral intake as medically able ?? Nutrition Needs Calculations: Calculated Energy Needs Using Equations Weight: 88.2 kg (194 lb 7.1 oz) Height: 162.6 cm (5' 4 ) Estimated Protein Needs Type of Weight Used for Estimated Protein : Current Protein Needs Based on g/k.8 Total Protein Estimated Needs (gm): 70.56 Kcal/kg Type of Weight Used for Estimated Kcals: Current Kcal/k Total Kcal/kg Estimated Needs : 1587.6 Estimated Fluid Needs Type of Weight Used for Estimated Fluid Needs: Current Fluid Needs Based on : 1 ml/kcal Total Fluid Estimated Needs: 1587.6 Objective Anthropometrics Weight: 88.2 kg (194 lb 7.1 oz) Admission Weight : 88.2 kg Weight Change: 1.10 kg (2.44 lbs) IBW/kg (Calculated) : 54.4 kg Height: 162.6 cm (5' 4 ) Weight in (lb) to have BMI = 25: 145.3 BMI (Calculated): 33.4 BMI Classification: BMI 30.0 - 34.9 Obese Class I 3 Day I/O Summary 05/19 1899 - 05/21 658 In: 750 [P.O.:250] Out: 575 [Urine:575] Temp: 36.7 ??C (98.1 ??F) Past Medical History: Diagnosis Date ??? CHF (congestive heart failure) (CMS/FORMER[facility]) ??? Hypertension Medications and Lab Review: Scheduled Meds: buPROPion XL, 300 mg, oral, Nightly enoxaparin, 40 mg, subcutaneous, Daily-2100 isosorbide mononitrate ER, 30 mg, oral, Nightly losartan, 50 mg, oral, Nightly metoprolol XL, 50 mg, oral, Daily pantoprazole DR, 40 mg, oral, Nightly Continuous Infusions: Sodium Date Value Ref Range Status 05/21/2020 141 135 - 145 mmol/L Final Potassium, pl Date Value Ref Range Status 05/21/2020 4.1 3.3 - 4.9 mmol/L Final BUN Date Value Ref Range Status 05/21/2020 18 8 - 25 mg/dL Final Creatinine Date Value Ref Range Status 05/21/2020 0.79 0.60 - 1.10 mg/dL Final Albumin Date Value Ref Range Status 05/21/2020 3.8 3.5 - 5.0 g/dL Final Calcium Date Value Ref Range Status 05/21/2020 9.1 8.5 - 10.3 mg/dL Final Lab Results Component Value Date HGBA1C 6.0 07/23/2016 Nursing Assessment: Last BM Date: 05/21/20 Og Scale Score: 22 Diet Instructions Adult Discharge Diet Diet Type: Restrict salt intake to less than 2000 mg per day Low fat intake Kathy Choi RD,LD ENGINEER * Davey Caal, DO - 05/21/2020 11:49 AM CST Review of nuclear stress test performed. Suspect abnormality consistent with left bundle branch block without clinical evidence of ischemia. Do not believe that patient requires further evaluation based on these findings. Okay to discharge from a cardiac perspective with outpatient follow-up with existing director of restaurants ENGINEER * Amanda Parra MD - 05/21/2020 10:17 AM CST Internal Medicine Daily Progress SUBJECTIVE: BP and HR stable Stress test CT chest pending DC today if all negative OBJECTIVE: Vitals: 24hr Min/Max: Temp Min: 36.1 ??C (96.9 ??F) Max: 37.1 ??C (98.7 ??F) Pulse Min: 77 Max: 132 BP Min: 105/52 Max: 175/99 Resp Min: 13 Max: 20 SpO2 Min: 97 % Max: 100 % Most Recent : Vitals: 05/20/20 1827 05/20/20 1945 05/20/20 2332 05/21/20 0309 BP: 150/83 105/52 108/56 BP Location: Left arm Left arm Left arm Patient Position: Sitting Lying Lying Pulse: 96 87 77 78 Resp: 20 20 20 Temp: 37.1 ??C (98.7 ??F) 36.8 ??C (98.2 ??F) 36.5 ??C (97.7 ??F) TempSrc: Oral Oral Oral SpO2: 98% 97% 100% Weight: 88.2 kg (194 lb 7.1 oz) Height: 162.6 cm (5' 4 ) I/O last 2 completed shifts: In: 750 [P.O.:250; IV Piggyback:500] Out: 575 [Urine:575] I/O this shift: In: 30 [P.O.:30] Out: - Physical Exam: General: awake Lungs: clear Heart: RRR Abdomen: no tenderness. No guarding. No rebound Ext: no swelling. No edema Neuro: moves all extremities Lab/Radiology/Diagnostic Review: Recent Results (from the past 24 hour(s)) CBC with auto differential Collection Time: 05/20/20 2:51 PM Result Value Ref Range WBC 9.9 3.8 - 9.9 K/cumm Hgb 13.0 11.9 - 15.5 g/dL Hct 39.4 35.6 - 45.5 % Plt 409 (H) 150 - 400 K/cumm MPV 8.8 (L) 9.1 - 12.3 fL RBC 4.58 3.90 - 5.20 M/cumm MCV 86.0 81.3 - 96.4 fL MCH 28.4 27.1 - 33.3 pg MCHC 33.0 32.3 - 35.7 g/dL RDW CV 14.0 11.1 - 14.9 % RDW SD 43.9 35.7 - 48.1 fL NRBC abs 0.00 0.00 - 0.01 K/cumm Troponin T high-sensitivity series (baseline, 2hr, 4hr, 6hr) Collection Time: 05/20/20 2:51 PM Result Value Ref Range Trop T hs <6 <=14 ng/L Comprehensive metabolic panel Collection Time: 05/20/20 2:51 PM Result Value Ref Range Sodium 140 135 - 145 mmol/L Potassium, pl 3.8 3.3 - 4.9 mmol/L Chloride 104 97 - 110 mmol/L CO2 22 22 - 32 mmol/L Anion gap 14 2 - 15 mmol/L BUN 18 8 - 25 mg/dL Creatinine 0.93 0.60 - 1.10 mg/dL Glucose 177 70 - 199 mg/dL Calcium 9.3 8.5 - 10.3 mg/dL Bilirubin, total 0.2 0.1 - 1.2 mg/dL Protein, pl 7.6 6.5 - 8.5 g/dL Albumin 4.5 3.5 - 5.0 g/dL Alk phos 88 40 - 130 Units/L ALT 24 7 - 45 Units/L AST 19 10 - 45 Units/L Pro B-type natriuretic peptide Collection Time: 05/20/20 2:51 PM Result Value Ref Range NT-proBNP 84 <=300 pg/mL TSH reflex to free T4 Collection Time: 05/20/20 2:51 PM Result Value Ref Range TSH 1.56 0.30 - 4.20 mcIUnit/mL Differential, auto Collection Time: 05/20/20 2:51 PM Result Value Ref Range Neutrophil abs 6.0 1.7 - 6.5 K/cumm Imm gran abs 0.0 0.0 - 0.1 K/cumm Lymphocyte abs 3.1 0.8 - 3.3 K/cumm Monocyte abs 0.7 0.2 - 0.8 K/cumm Eosinophil abs 0.1 0.0 - 0.5 K/cumm Basophil abs 0.1 0.0 - 0.1 K/cumm Neutrophil pct 60.2 % Imm gran pct 0.3 % Lymphocyte pct 30.9 % Monocyte pct 7.5 % Eosinophil pct 0.6 % Basophil pct 0.5 % eGFR Collection Time: 05/20/20 2:51 PM Result Value Ref Range GFR 69 mL/min/1.73 m2 D-dimer, quantitative Collection Time: 05/20/20 4:10 PM Result Value Ref Range D-Dimer 386 <=499 ng/mL FEU Troponin T high-sensitivity 2-hour Collection Time: 05/20/20 4:57 PM Result Value Ref Range Trop T hs 6 <=14 ng/L Trop T hs delta 0 ng/L Trop T hs interp Insignificant Troponin T high-sensitivity 4-hour Collection Time: 05/20/20 7:36 PM Result Value Ref Range Trop T hs 6 <=14 ng/L Trop T hs delta 0 ng/L Trop T hs interp Insignificant Troponin T high-sensitivity 6-hour Collection Time: 05/20/20 8:45 PM Result Value Ref Range Trop T hs 6 <=14 ng/L Trop T hs delta 0 ng/L Trop T hs interp Insignificant CBC with auto differential Collection Time: 05/21/20 3:14 AM Result Value Ref Range WBC 7.1 3.8 - 9.9 K/cumm Hgb 11.8 (L) 11.9 - 15.5 g/dL Hct 36.7 35.6 - 45.5 % Plt 368 150 - 400 K/cumm MPV 9.4 9.1 - 12.3 fL RBC 4.12 3.90 - 5.20 M/cumm MCV 89.1 81.3 - 96.4 fL MCH 28.6 27.1 - 33.3 pg MCHC 32.2 (L) 32.3 - 35.7 g/dL RDW CV 14.3 11.1 - 14.9 % RDW SD 46.2 35.7 - 48.1 fL NRBC abs 0.00 0.00 - 0.01 K/cumm Comprehensive metabolic panel Collection Time: 05/21/20 3:14 AM Result Value Ref Range Sodium 141 135 - 145 mmol/L Potassium, pl 4.1 3.3 - 4.9 mmol/L Chloride 106 97 - 110 mmol/L CO2 25 22 - 32 mmol/L Anion gap 10 2 - 15 mmol/L BUN 18 8 - 25 mg/dL Creatinine 0.79 0.60 - 1.10 mg/dL Glucose 136 70 - 199 mg/dL Calcium 9.1 8.5 - 10.3 mg/dL Bilirubin, total 0.3 0.1 - 1.2 mg/dL Protein, pl 6.6 6.5 - 8.5 g/dL Albumin 3.8 3.5 - 5.0 g/dL Alk phos 76 40 - 130 Units/L ALT 20 7 - 45 Units/L AST 17 10 - 45 Units/L Differential, auto Collection Time: 05/21/20 3:14 AM Result Value Ref Range Neutrophil abs 2.8 1.7 - 6.5 K/cumm Imm gran abs 0.0 0.0 - 0.1 K/cumm Lymphocyte abs 3.6 (H) 0.8 - 3.3 K/cumm Monocyte abs 0.6 0.2 - 0.8 K/cumm Eosinophil abs 0.1 0.0 - 0.5 K/cumm Basophil abs 0.0 0.0 - 0.1 K/cumm Neutrophil pct 39.3 % Imm gran pct 0.1 % Lymphocyte pct 50.1 % Monocyte pct 8.4 % Eosinophil pct 1.5 % Basophil pct 0.6 % eGFR Collection Time: 05/21/20 3:14 AM Result Value Ref Range GFR 84 mL/min/1.73 m2 ECG 12 lead Result Date: 05/21/2020 Narrative: Vent Rate: 123 bpm RR Interval: 485 msec MA Interval: 132 msec QRS Duration: 154 msec QTInterval: 340 msec QTC Interval: 413 msec P-R-T [place]: 50 - 0 - 138 degrees SINUS TACHYCARDIA LEFT BUNDLE BRANCH BLOCK ABNORMAL ECG Electronically Signed By: Becki Navarro DO, [facility] XR Chest 1 Vw Portable Result Date: 05/21/2020 Narrative: EXAMINATION: Chest Radiograph, 1 view DATE: 05/20/2020 2:45 PM HISTORY: Heart palpitations. COMPARISON: 02/25/2018. FINDINGS: The lungs are clear. No focal pneumonic consolidation, pleural effusion, or pneumothorax. The cardiomediastinal silhouette is normal. Impression: 1. Clear lungs. Electronically signed by: Dejan Eckert M.D. ASSESSMENT/PLAN: Principal Problem: Chest pain Acute Chest Pain + Palpitations- POA -Troponin <6 => 6 (x3) -denies chest pain at time of assessment -Dr. Remy notified. Fu at [facility] -resume home ASA, Imdur and metoprolol -stress test Hypertensive Urgency- POA -BP 175/99 at time of arrival -resume home BP medications ?? Chronic Systolic HF -appears stable -TTE 12/29/18 = LVEDD 4.3 cm with LVEF 41% & global hypokinesis -being followed outpatient ?? Obesity -BMII 33.38 -encouraged dietary and lifestyle modificatins ?? GEERD -Protonix ?? DVT Prophylaxis -Lovenox ?? Amanda Parra MD ENGINEER documented in this encounter H&P Notes * Sunil Velázquez NP - 05/20/2020 9:57 PM CST History and Physical SUBJECTIVE: Patient is a 55 y.o. female with chief complaint of chest pain with palpitations HPI: Myles Sauceda is a 35 year old female with PMH of Chronic Systolic HF, HTN, HLD, GERD, Hodgkin Disease (1992), and LBBB who presents with c/o chest pain with palpitations. Associated symptoms include tachycardia (120s), nausea, frontal headache, diaphoresis and right sided neck pain. Patient reports that she was sitting in her car around 1330 when she began having palpitations. Soon afterwards she says she began sweating, became nauseas and had a brief, sharp mid-sternal chest pain. She deniesfever, chills, SOB, vomiting, abdominal pain or dysuria. Per chart review, patient is being followed by cardiology (Matt Remy MD [facility]). Last office visit note (03/03/2020) reports TTE = LVEDD 4.3 cm with LVEF 41% & global hypokinesis. Dr Remy notes she states her palpitations have been ongoing for the past few years and all rhythm monitor have not documented any arrhythmias . He advised her to obtain a [employer] ECG monito to obtain her own rhythm strips which she says showed ST with rate of 120. Patient is a former smoker and denies alcohol or illicit drug use. Labs: Troponin <6 => 6 (x3) Past Medical History: Diagnosis Date ??? CHF (congestive heart failure) (CMS/HCC) ??? Hypertension History reviewed. No pertinent surgical history. Medications Prior to Admission Medication Sig Dispense Refill Last Dose ??? aspirin 81 mg tablet daily. 05/20/2020 ??? buPROPion XL (WELLBUTRIN XL) 300 mg 24 hr tablet TAKE 1 TABLET BY MOUTH EVERY DAY 90 tablet 1 05/20/2020 ??? ergocalciferol (VITAMIN D) 50,000 unit capsule TAKE 1 CAPSULE BY MOUTH ONE TIME PER WEEK 12 capsule 0 05/20/2020 ??? fluticasone (CHILDREN'S FLONASE ALLERGY RLF) 50 mcg/actuation nasal spray daily. 05/20/2020 ??? isosorbide mononitrate ER (IMDUR) 30 mg 24 hr tablet Take 1 tablet (30 mg total) by mouth daily30 tablet 5 05/20/2020 ??? loratadine (CLARITIN) 10 mg tablet Take 10 mg by mouth daily 05/20/2020 ??? losartan (COZAAR) 50 mg tablet Take 1 tablet (50 mg total) by mouth daily 90 tablet 3 05/20/2020 ??? metoprolol XL (TOPROL-XL) 50 mg extended release tablet Take 1 tablet (50 mg total) by mouth daily 90 tablet 3 05/20/2020 ??? pantoprazole DR (PROTONIX) 40 mg EC tablet TAKE 1 TABLET BY MOUTH EVERY DAY 90 tablet 1 05/20/2020 ??? azithromycin (ZITHROMAX) 250 mg tablet ??? diclofenac DR (VOLTAREN) 50 mg EC tablet Take 50 mg by mouth 2 (two) times a day 0 ??? escitalopram (LEXAPRO) 5 mg tablet Take 5 mg by mouth daily. 1 ??? rizatriptan (MAXALT) 10 mg tablet TAKE 1 TABLET AT ONSET OF HEADACHE. MAY REPEAT EVERY 2 HOURS NEEDED. MAXIMUM 3 TABLETS IN 24 HOURS. More than a month Allergies Allergen Reactions ??? Codeine Other (See comments) and Vomiting Reaction: RASH;, ??? Hydrocodone Vomiting ??? Penicillin Other (See comments) Reaction: UNKNOWN, Social History Tobacco Use ??? Smoking status: Former Smoker Packs/day: 0.50 Types: Cigarettes ??? Smokeless tobacco: Never Used Substance Use Topics ??? Alcohol use: No History reviewed. No pertinent family history. Review of Systems: Review of Systems Cardiovascular: Positive for chest pain and palpitations. Musculoskeletal: Positive for myalgias and neck pain. Neurological: Positive for headaches. All other systems reviewed and are negative. OBJECTIVE: Vitals: Arrival Vitals Temp 05/20/20 1431 36.1 ??C (96.9 ??F) Pulse 05/20/20 1431 (!) 132 Resp 05/20/20 1431 20 BP 05/20/20 1432 (!) 175/99 SpO2 05/20/20 1431 100 % Temp src 05/20/20 1431 Temporal Heart Rate Source 05/20/20 1827 Pulse Oximetry Patient Position 05/20/20 1827 Sitting BP Location 05/20/20 1827 Left arm FiO2 (%) -- 24hr Min/Max: Temp Min: 36.1 ??C (96.9 ??F) Max: 37.1 ??C (98.7 ??F) Pulse Min: 96 Max: 132 BP Min: 148/92 Max: 175/99 Resp Min: 13 Max: 20 SpO2 Min: 98 % Max: 100 % Most Recent : Vitals: 05/20/20 1630 05/20/20 1720 05/20/20 1730 05/20/20 1827 BP: 148/92 154/96 150/83 BP Location: Left arm Patient Position: Sitting Pulse: 106 98 96 Resp: 15 15 19 20 Temp: 37.1 ??C (98.7 ??F) TempSrc: Oral SpO2: 98% 100% 98% Weight: 88.2 kg (194 lb 7.1 oz) Height: 162.6 cm (5' 4 ) Physical exam: Physical Exam Vitals reviewed. Constitutional: General: She is not in acute distress. Appearance: Normal appearance. She is obese. She is not ill-appearing. HENT: Head: Normocephalic and atraumatic. Nose: Nose normal. Mouth/Throat: Pharynx: Oropharynx is clear. Eyes: Extraocular Movements: Extraocular movements intact. Pupils: Pupils are equal, round, and reactive to light. Cardiovascular: Rate and Rhythm: Normal rate and regular rhythm. Pulses: Normal pulses. Heart sounds: No murmur. Pulmonary: Effort: Pulmonary effort is normal. No respiratory distress. Breath sounds: Normal breath sounds. No stridor. No wheezing or rales. Abdominal: General: Bowel sounds are normal. There is no distension. Palpations: Abdomen is soft. There is no mass. Tenderness: There is no abdominal tenderness. There is no guarding. Hernia: No hernia is present. Musculoskeletal: General: No swelling, tenderness, deformity or signs of injury. Normal range of motion. Cervical back: Normal range of motion and neck supple. Skin: General: Skin is warm and dry. Capillary Refill: Capillary refill takes less than 2 seconds. Neurological: General: No focal deficit present. Mental Status: She is alert and oriented to person, place, and time. Cranial Nerves: No cranial nerve deficit. Sensory: No sensory deficit. Motor: No weakness. Psychiatric: Mood and Affect: Mood normal. Behavior: Behavior normal. Lab/Radiology/Diagnostic Review: Recent Results (from the past 24 hour(s)) CBC with auto differential Collection Time: 05/20/20 2:51 PM Result Value Ref Range WBC 9.9 3.8 - 9.9 K/cumm Hgb 13.0 11.9 - 15.5 g/dL Hct 39.4 35.6 - 45.5 % Plt 409 (H) 150 - 400 K/cumm MPV 8.8 (L) 9.1 - 12.3 fL RBC 4.58 3.90 - 5.20 M/cumm MCV 86.0 81.3 - 96.4 fL MCH 28.4 27.1 - 33.3 pg MCHC 33.0 32.3 - 35.7 g/dL RDW CV 14.0 11.1 - 14.9 % RDW SD 43.9 35.7 - 48.1 fL NRBC abs 0.00 0.00 - 0.01 K/cumm Troponin T high-sensitivity series (baseline, 2hr, 4hr, 6hr) Collection Time: 05/20/20 2:51 PM Result Value Ref Range Trop T hs <6 <=14 ng/L Comprehensive metabolic panel Collection Time: 05/20/20 2:51 PM Result Value Ref Range Sodium 140 135 - 145 mmol/L Potassium, pl 3.8 3.3 - 4.9 mmol/L Chloride 104 97 - 110 mmol/L CO2 22 22 - 32 mmol/L Anion gap 14 2 - 15 mmol/L BUN 18 8 - 25 mg/dL Creatinine 0.93 0.60 - 1.10 mg/dL Glucose 177 70 - 199 mg/dL Calcium 9.3 8.5 - 10.3 mg/dL Bilirubin, total 0.2 0.1 - 1.2 mg/dL Protein, pl 7.6 6.5 - 8.5 g/dL Albumin 4.5 3.5 - 5.0 g/dL Alk phos 88 40 - 130 Units/L ALT 24 7 - 45 Units/L AST 19 10 - 45 Units/L Pro B-type natriuretic peptide Collection Time: 05/20/20 2:51 PM Result Value Ref Range NT-proBNP 84 <=300 pg/mL TSH reflex to free T4 Collection Time: 05/20/20 2:51 PM Result Value Ref Range TSH 1.56 0.30 - 4.20 mcIUnit/mL Differential, auto Collection Time: 05/20/20 2:51 PM Result Value Ref Range Neutrophil abs 6.0 1.7 - 6.5 K/cumm Imm gran abs 0.0 0.0 - 0.1 K/cumm Lymphocyte abs 3.1 0.8 - 3.3 K/cumm Monocyte abs 0.7 0.2 - 0.8 K/cumm Eosinophil abs 0.1 0.0 - 0.5 K/cumm Basophil abs 0.1 0.0 - 0.1 K/cumm Neutrophil pct 60.2 % Imm gran pct 0.3 % Lymphocyte pct 30.9 % Monocyte pct 7.5 % Eosinophil pct 0.6 % Basophil pct 0.5 % eGFR Collection Time: 05/20/20 2:51 PM Result Value Ref Range GFR 69 mL/min/1.73 m2 D-dimer, quantitative Collection Time: 05/20/20 4:10 PM Result Value Ref Range D-Dimer 386 <=499 ng/mL FEU Troponin T high-sensitivity 2-hour Collection Time: 05/20/20 4:57 PM Result Value Ref Range Trop T hs 6 <=14 ng/L Trop T hs delta 0 ng/L Trop T hs interp Insignificant Troponin T high-sensitivity 4-hour Collection Time: 05/20/20 7:36 PM Result Value Ref Range Trop T hs 6 <=14 ng/L Trop T hs delta 0 ng/L Trop T hs interp Insignificant Troponin T high-sensitivity 6-hour Collection Time: 05/20/20 8:45 PM Result Value Ref Range Trop T hs 6 <=14 ng/L Trop T hs delta 0 ng/L Trop T hs interp Insignificant No results found. * Cannot find OR log * ASSESSMENT/PLAN: Acute Chest Pain + Palpitations- POA -Troponin <6 => 6 (x3) -denies chest pain at time of assessment -telemetry -Dr. Remy notified -resume home ASA, Imdur and metoprolol -stress test in AM -continue to monitor Hypertensive Urgency- POA -BP 175/99 at time of arrival -resume home BP medications -monitor BP closely Chronic Systolic HF -appears stable -TTE 12/29/18 = LVEDD 4.3 cm with LVEF 41% & global hypokinesis -being followed outpatient -continue to monitor HLD -not currently on statin Obesity -BMII 33.38 -encouraged dietary and lifestyle modificatins GE$RD -Protonix DVT Prophylaxis -Lovenox Sunil Velázquez AGACNP-BC Cosigned by Becki Lovett MD at 05/23/2020 5:43 PM BODY ENGINEER ENGINEER ENGINEER documented in this encounter Consult Notes * Davey Caal DO - 05/21/2020 8:27 AM CSTAssociated Order(s): IP CONSULT TO CARDIOLOGY Cardiology Consult Primary Care Physician: Newton Mendiola MD Primary Major Gifts Officer: DO Dr. Ten Cortez is at the bedside to perform this consult, review the history, examine the patient and discuss the treatment plan with Reina Hernandez, MSN/RN acting as scribe. Reason for Consultation: chest pain Subjective Myles Sauceda is a 55 y.o. female who presented with a chief complaint of chest pain. History of Present Illness: Cardiology consult is requested for evaluation of c/o chest pain and palpitations. 55 y.o. female with no known history coronary artery disease with known history NICM with most recent LVEF by echocardiogram 46%, chronic systolic heart failure, LBBB, HTN, GERD and Hodgkin's lymphoma 1992 S/P XRT therapy. She states yesterday morning she developed a frontal headache which waxed and waned throughout the morning. She went out to lunch and developed nausea, diaphoresis with right sided neck pain radiating to her right jaw. She also states she just didn't feel right. She states as she left the restaurant she felt off balance and had to hold on to the wall. She denies light-headedness or near-sy ncope. While returning home she developed palpitations with associated sharp, stabbing left sternalchest pain. She states the pain was quick but came and went. She continued to feel unsteady on her feet and noted increasing heart rate. She used her [employer] environmental monitoring specialist which noted sinus tachycardia at 120 bpm. She presented to the ER where she states she had gradual resolution of the palpitations without recurrence since admission. She denies recent fever, chills, URI type symptoms, but does admit to intermittent nausea and anorexia for 2-3 weeks with reported 10 pound weight loss. Shedenies diarrhea, peripheral edema, abdominal swelling, PND, or syncope. She does note chronic CARTER as well as orthopnea without recent change. Review of previous records demonstrates c/o palpitations previously evaluated with outpatient monitors without arrhythmias noted. She was noted to have LV systolic dysfunction after evaluation with echocardiogram and stress testing for c/o CARTER and subsequent cardiac catheterization 07/2016 after echocardiogram demonstrated global hypokinesis with LVEF 44% and nuclear stress test was abnormal. Cardiac catheterization demonstrated LVEDP 19 mmHg with no significant CAD. She was placed on medical therapy with echocardiogram 01/2019 demonstrating LVEF 44% and most recent echocardiogram 03/02/2020 with mild global LV systolic dysfunction with LVEF 46%. Past Medical History: Diagnosis Date CHF (congestive heart failure) (CMS/HCC) Hypertension Non-ischemic cardiomyopathy Gastroesophageal reflux disease Hodgkin's lymphoma S/P XRT 1992 Migraine cephalgia Obesity Renal calculi Past Surgical History: No pertinent surgical history. HOME MEDICATIONS : aspirin 81 mg tablet buPROPion XL (WELLBUTRIN XL) 300 mg 24 hr tablet ergocalciferol (VITAMIN D) 50,000 unit capsule fluticasone (CHILDREN'S FLONASE ALLERGY RLF) 50 mcg/actuation nasal spray isosorbide mononitrate ER (IMDUR) 30 mg 24 hr tablet loratadine (CLARITIN) 10 mg tablet losartan (COZAAR) 50 mg tablet metoprolol XL (TOPROL-XL) 50 mg extended release tablet pantoprazole DR (PROTONIX) 40 mg EC tablet rizatriptan (MAXALT) 10 mg tablet Current Facility-Administered Medications: buPROPion XL (WELLBUTRIN XL) 24 hour tablet 300 mg, 300 mg, oral, Nightly, Sunil Velázquez,BRIT, 300 mg at 05/21/20 0107 enoxaparin (LOVENOX) syringe 40 mg, 40 mg, subcutaneous, Daily-2100, Sunil Velázquez NP, 40 mg at 05/21/20 0019 isosorbide mononitrate ER (IMDUR) extended release tablet 30 mg, 30 mg, oral, Nightly, Sunil Velázquez, BRIT, 30 mg at 05/21/20 010 losartan (COZAAR) tablet 50 mg, 50 mg, oral, Nightly, Sunil Velázquez NP metoprolol XL (TOPROL-XL) extended release tablet 50 mg, 50 mg, oral, Daily, Sunil Velázquez, BRIT, 50 mg at 05/20/20 1636 morphine injection 2 mg, 2 mg, intravenous, Q3H PRN, Amairani Sorto MD ondansetron ODT (ZOFRAN-ODT) disintegrating tablet 4 mg, 4 mg, oral, Q6H PRN OR ondansetron (ZOFRAN) injection 4 mg, 4 mg, intravenous, Q6H PRN, Amairani Sorto MD pantoprazole DR (PROTONIX) extended release tablet 40 mg, 40 mg, oral, Nightly, Sunil Velázquez NP tc-99m tetrofosmin (MYOVIEW) injection 30 millicurie, 30 millicurie, intravenous, Once in imaging, Amairani Sorto MD Allergies Allergen Reactions Codeine Other (See comments) and Vomiting Reaction: RASH;, Hydrocodone Vomiting Penicillin Other (See comments) Reaction: UNKNOWN, Social History Tobacco Use Smoking status: Former Smoker Packs/day: 0.50 Types: Cigarettes Smokeless tobacco: Never Used Substance Use Topics Alcohol use: No Family history: Positive for premature CAD with father with history CABG early 50s. Review of Systems: General: Positive for 2-3 week history anorexia, nausea with weight loss 10 pounds, insomnia. Denies weight gain, fever, chills. Integument: Denies rashes, hives, easy bruisability, change in moles or lesions. HEENT: Positive for headache on admission, history migraine cephalgia, chronic sinus congestion. Denies visual disturbances, epistaxis, tinnitus. Cardiovascular: See HPI. Respiratory: Positive for recent non-productive cough, chronic CARTER, orthopnea without recent change. Denies SOB, PND, wheezing. Gastroenterology: Positive for anorexia, nausea, GERD. Denies hepatitis, irritable bowel, hematemesis, hematochezia, melena, dark or tarry stools. Genitourinary: Positive for history renal calculi, nocturia 1x per night. Denies dysuria, frequency, hematuria. Muskuloskeletal: Denies claudication, joint pain, weakness, paresthesias, DVT, paralysis, edema. Neurology: Denies CVA, TIA, light-headedness, syncope. Endocrine: Denies dyslipidemia, thyroid dysfunction, diabetes. Heme/Onc: Positive for history Hodgkin's lymphoma S/P XRT. Denies anemias, leukemias, cancers, blood dyscrasias. Immunology: Non-contributory. Infectious disease: Denies infectious diseases. Objective Vitals: Arrival Vitals Temp 05/20/20 1431 36.1 ??C (96.9 ??F) Pulse 05/20/20 1431 (!) 132 Resp 05/20/20 1431 20 BP 05/20/20 1432 (!) 175/99 SpO2 05/20/20 1431 100 % Temp src 05/20/20 1431 Temporal Heart Rate Source 05/20/20 1827 Pulse Oximetry Patient Position 05/20/20 1827 Sitting BP Location 05/20/20 1827 Left arm FiO2 (%) -- 24hr Min/Max: Temp Min: 36.1 ??C (96.9 ??F) Max: 37.1 ??C (98.7 ??F) Pulse Min: 77 Max: 132 BP Min: 105/52 Max: 175/99 Resp Min: 13 Max: 20 SpO2 Min: 97 % Max: 100 % Most Recent : Vitals: 05/21/20 0309 BP: 108/56 Pulse: 78 Resp: 20 Temp: 36.5 ??C (97.7 ??F) SpO2: 100% I/O last 2 completed shifts: In: 750 [P.O.:250; IV Piggyback:500] Out: 575 [Urine:575] No intake/output data recorded. Physical Exam: Physical examination reveals an alert oriented female in no acute distress. Blood pressure: 108/56 Heart rate: 78, regular Respiratory rate: 16 Temperature: 97.7 F. Telemetry monitoring demonstrates: Sinus rhythm. Integument: The skin is warm, pink and dry to touch without lesions noted. HEENT: The head is normocephalic with normal hair distribution. PERRLA at 3mm. EOMs are intact. Theoropharynx is pink without noted lesions or exudates. Neck: The neck is supple without obvious JVD at 90 degree angulation. Carotid upstrokes 2+ bilaterally without audible bruits noted to auscultation. There is no palpable thyromegaly or cervical lymphadenopathy. Cardiovascular: The thorax is symmetrical with equal excursion noted upon respiration. The PMI is nondisplaced with no abnormal impulses to palpation. HRR&R with Grade II/ systolic murmur without audible gallops or rubs. Lungs: The lungs are clear to ausculatation bilaterally. Abdomen: The abdomen is obese, soft and non-tender to palpation. Bowel sounds are audible over all four quadrants. There are no palpable masses or hepatomegaly noted. Rectal: Deferred at this time. Musculoskeletal/Extremities: The extremities are symmetrical without edema or cyanosis noted. Peripheral pulses are 2+ bilaterally. DTRs are 2+ bilaterally. Krzysztof's are negative bilaterally. Neurological: Alert and oriented x3. Following simple verbal commands without difficulty. Moving all extremities x4. Lab/Radiology/Diagnostic Review: Laboratory review: Lab results in the last 24 hours: Recent Results (from the past 24 hour(s)) CBC with auto differential Collection Time: 05/20/20 2:51 PM Result Value Ref Range WBC 9.9 3.8 - 9.9 K/cumm Hgb 13.0 11.9 - 15.5 g/dL Hct 39.4 35.6 - 45.5 % Plt 409 (H) 150 - 400 K/cumm MPV 8.8 (L) 9.1 - 12.3 fL RBC 4.58 3.90 - 5.20 M/cumm MCV 86.0 81.3 - 96.4 fL MCH 28.4 27.1 - 33.3 pg MCHC 33.0 32.3 - 35.7 g/dL RDW CV 14.0 11.1 - 14.9 % RDW SD 43.9 35.7 - 48.1 fL NRBC abs 0.00 0.00 - 0.01 K/cumm Troponin T high-sensitivity series (baseline, 2hr, 4hr, 6hr) Collection Time: 05/20/20 2:51 PM Result Value Ref Range Trop T hs <6 <=14 ng/L Comprehensive metabolic panel Collection Time: 05/20/20 2:51 PM Result Value Ref Range Sodium 140 135 - 145 mmol/L Potassium, pl 3.8 3.3 - 4.9 mmol/L Chloride 104 97 - 110 mmol/L CO2 22 22 - 32 mmol/L Anion gap 14 2 - 15 mmol/L BUN 18 8 - 25 mg/dL Creatinine 0.93 0.60 - 1.10 mg/dL Glucose 177 70 - 199 mg/dL Calcium 9.3 8.5 - 10.3 mg/dL Bilirubin, total 0.2 0.1 - 1.2 mg/dL Protein, pl 7.6 6.5 - 8.5 g/dL Albumin 4.5 3.5 - 5.0 g/dL Alk phos 88 40 - 130 Units/L ALT 24 7 - 45 Units/L AST 19 10 - 45 Units/L Pro B-type natriuretic peptide Collection Time: 05/20/20 2:51 PM Result Value Ref Range NT-proBNP 84 <=300 pg/mL TSH reflex to free T4 Collection Time: 05/20/20 2:51 PM Result Value Ref Range TSH 1.56 0.30 - 4.20 mcIUnit/mL Differential, auto Collection Time: 05/20/20 2:51 PM Result Value Ref Range Neutrophil abs 6.0 1.7 - 6.5 K/cumm Imm gran abs 0.0 0.0 - 0.1 K/cumm Lymphocyte abs 3.1 0.8 - 3.3 K/cumm Monocyte abs 0.7 0.2 - 0.8 K/cumm Eosinophil abs 0.1 0.0 - 0.5 K/cumm Basophil abs 0.1 0.0 - 0.1 K/cumm Neutrophil pct 60.2 % Imm gran pct 0.3 % Lymphocyte pct 30.9 % Monocyte pct 7.5 % Eosinophil pct 0.6 % Basophil pct 0.5 % eGFR Collection Time: 05/20/20 2:51 PM Result Value Ref Range GFR 69 mL/min/1.73 m2 D-dimer, quantitative Collection Time: 05/20/20 4:10 PM Result Value Ref Range D-Dimer 386 <=499 ng/mL FEU Troponin T high-sensitivity 2-hour Collection Time: 05/20/20 4:57 PM Result Value Ref Range Trop T hs 6 <=14 ng/L Trop T hs delta 0 ng/L Trop T hs interp Insignificant Troponin T high-sensitivity 4-hour Collection Time: 05/20/20 7:36 PM Result Value Ref Range Trop T hs 6 <=14 ng/L Trop T hs delta 0 ng/L Trop T hs interp Insignificant Troponin T high-sensitivity 6-hour Collection Time: 05/20/20 8:45 PM Result Value Ref Range Trop T hs 6 <=14 ng/L Trop T hs delta 0 ng/L Trop T hs interp Insignificant CBC with auto differential Collection Time: 05/21/20 3:14 AM Result Value Ref Range WBC 7.1 3.8 - 9.9 K/cumm Hgb 11.8 (L) 11.9 - 15.5 g/dL Hct 36.7 35.6 - 45.5 % Plt 368 150 - 400 K/cumm MPV 9.4 9.1 - 12.3 fL RBC 4.12 3.90 - 5.20 M/cumm MCV 89.1 81.3 - 96.4 fL MCH 28.6 27.1 - 33.3 pg MCHC 32.2 (L) 32.3 - 35.7 g/dL RDW CV 14.3 11.1 - 14.9 % RDW SD 46.2 35.7 - 48.1 fL NRBC abs 0.00 0.00 - 0.01 K/cumm Comprehensive metabolic panel Collection Time: 05/21/20 3:14 AM Result Value Ref Range Sodium 141 135 - 145 mmol/L Potassium, pl 4.1 3.3 - 4.9 mmol/L Chloride 106 97 - 110 mmol/L CO2 25 22 - 32 mmol/L Anion gap 10 2 - 15 mmol/L BUN 18 8 - 25 mg/dL Creatinine 0.79 0.60 - 1.10 mg/dL Glucose 136 70 - 199 mg/dL Calcium 9.1 8.5 - 10.3 mg/dL Bilirubin, total 0.3 0.1 - 1.2 mg/dL Protein, pl 6.6 6.5 - 8.5 g/dL Albumin 3.8 3.5 - 5.0 g/dL Alk phos 76 40 - 130 Units/L ALT 20 7 - 45 Units/L AST 17 10 - 45 Units/L Differential, auto Collection Time: 05/21/20 3:14 AM Result Value Ref Range Neutrophil abs 2.8 1.7 - 6.5 K/cumm Imm gran abs 0.0 0.0 - 0.1 K/cumm Lymphocyte abs 3.6 (H) 0.8 - 3.3 K/cumm Monocyte abs 0.6 0.2 - 0.8 K/cumm Eosinophil abs 0.1 0.0 - 0.5 K/cumm Basophil abs 0.0 0.0 - 0.1 K/cumm Neutrophil pct 39.3 % Imm gran pct 0.1 % Lymphocyte pct 50.1 % Monocyte pct 8.4 % Eosinophil pct 1.5 % Basophil pct 0.6 % eGFR Collection Time: 05/21/20 3:14 AM Result Value Ref Range GFR 84 mL/min/1.73 m2 Imaging review: Admission CXR demonstrates clear lungs. Electrocardiogram review: 05/20/2020 1439: Sinus tachycardia at 123 bpm. Left bundle branch block. Telemetry review: Sinus rhythm. Cardiac study review: No recent results to review Assessment and plan: Chest pain Presents with c/o fleeting sharp, stabbing left sternal chest pain atypical for cardiac pain without prolonged duration. Cardiac biomarkers negative x3 and EKG with LBBB (known history).. Cardiac catheterization 2016 without evidence coronary artery disease. Will proceed with nuclear stress test this morning for further evaluation. If nuclear stress test negative okay to discharge from cardiologystandpoint to F/U with primary director of restaurants. Will need further evaluation if abnormal. Palpitations History of c/o palpitations on admission with EKG demonstrating sinus tachycardia. Ongoing palpitations for several years with previous outpatient monitoring without documented arrhythmias. Continue use of [employer] environmental monitoring specialist as an outpatient. Non-ischemic cardiomyopathy History LV systolic dysfunction with echocardiogram demonstrating global hypokinesis with LVEF 46% 02/2020. Prior cardiac catheterization without coronary artery disease. Continue guideline directed HF therapy with B-raciel, ARB, long-acting nitrates. Chronic systolic heart failure No evidence of decompensated heart failure or volume overload at this time. Recommend continuing B-raciel, ARB, long-acting nitrates at this time. F/U with primary director of restaurants at [facility]. Hypertension Blood pressures controlled on home B-raciel, ARB, long-acting nitrates. Left bundle branch block Known history LBBB present on admission EKG. This is SANJAY Hinton/RN acting as scribe and dictator for Dr. Caal. By signing my name below, I, SANJAY Hinton/RN attest that this documentation has been prepared under the direction and in thepresence of Dr. Davey Caal. I, Dr. Davey Caal, personally performed the services described in this documentation. All medical record entries made by the scribe were at my direction and in my presence. I have reviewed the chart and agree that the record reflects my personal performance and is accurate and complete. ENGINEER ENGINEER documented in this encounter Nursing Notes * Kaylee Leggett RN - 05/21/2020 4:15 PM CST IV discontinued, Tele monitor discontinued. Discharge follow up appointments reviewed with patient.Patient verbalized understanding. Patient Discharged ambulatory to her own vehicle. ENGINEER * Sage Sauceda. - 05/21/2020 1:44 PM CST VASCULAR ACCESS CONSULT. Consulted for PIV placement by ultrasound as pt has a hx of difficult access and bedside staff havemade several attempts. Discussed with pt. Assessed left arm under ultrasound. Cephalic Vessel showed adequate size and normal compression. Site prepped and dried. Able to access vessel under ultrasound guidance w/o complication. Needle tip verified center vessel via ultrasound and blood return. Long dwelling 20g Cannula advanced w/o complication, Needle removed and accounted for. Flushed with 10 ML NS w/o complication. Secured with dressing. Bedside Rn notified. If loss of access please call sage. Thanks. Sage sauceda RN Vascular access [phone] ENGINEER documented in this encounter ED Notes * Myles Dunlap MD - 05/20/2020 3:12 PM CST HPI Chief Complaint Patient presents with ??? Palpitations ??? Rapid Heart Rate HPI 55-year-old female with history of nonischemic cardiomyopathy, left bundle- branch block, Hodgkin's lymphoma, CHF with EF of 46%, hypertension, who presents with chest pain and palpitations. Patient states that she has had a moderate frontal headache starting this morning which has been waxing and waning in intensity. Around noon she developed nausea, diaphoresis and pain in her right neck radiating to her right jaw. She had palpitations with heart rate in the 120s associated with brief sharp midsternal chest pain and dull pain in the left mid back. Denies current chest pain but continues to have palpitations. Nausea, diaphoresis, and headache have improved. Denies any specific triggers for her symptoms. No recent fever, cough, exertional chest pain over the last few days, shortness of breath, vomiting, abdominal pain, diarrhea, dysuria, numbness or weakness. Follows with Dr. Matt Remy for cardiology and current has a [employer] mobile ECG monitor. Family history: HTN Social history: nonsmoker Patient History: Patient Active Problem List Diagnosis Date Noted ??? Chest pain 05/20/2020 ??? LV dysfunction 10/28/2018 ??? LBBB (left bundle branch block) 10/28/2018 ??? Mixed hyperlipidemia 10/28/2018 ??? Chronic insomnia 10/28/2018 ??? Chronic systolic (congestive) heart failure (CMS/HCC) 07/22/2017 ??? Gastroesophageal reflux disease without esophagitis 07/22/2017 ??? Pure hypercholesterolemia 07/22/2017 ??? Cardiomyopathy (CMS/HCC) 09/09/2016 ??? Gasping for breath 09/09/2016 ??? Hodgkin lymphoma (CMS/HCC) 09/09/2016 ??? Hypertension 09/09/2016 ??? Snoring 09/09/2016 ??? Systolic dysfunction 09/09/2016 ??? Insomnia 09/09/2016 ??? Elbow pain 09/01/2016 ??? Lateral epicondylitis of right elbow 09/01/2016 ??? Obesity with body mass index 30 or greater 07/31/2016 ??? Abnormal electrocardiography 07/21/2016 ??? Acute chest pain 07/21/2016 ??? Dyspnea on exertion 07/21/2016 ??? Left bundle branch block 07/17/2016 ??? Abdominal pain, left lower quadrant 03/07/2011 Past Medical History: Diagnosis Date ??? CHF (congestive heart failure) (CMS/HCC) ??? Hypertension History reviewed. No pertinent surgical history. History reviewed. No pertinent family history. Social History Tobacco Use ??? Smoking status: Former Smoker Packs/day: 0.50 Types: Cigarettes ??? Smokeless tobacco: Never Used Substance Use Topics ??? Alcohol use: No ??? Drug use: Not on file Social History Social History Narrative ??? Not on file Review of Systems ROS as above in HPI. All other systems reviewed and negative. Review of Systems Physical Exam ED Triage Vitals Temp Pulse Resp BP SpO2 05/20/20 1431 05/20/20 1431 05/20/20 1431 05/20/20 1432 05/20/20 1431 36.1 ??C (96.9 ??F) (!) 132 20 (!) 175/99 100 % Temp src Heart Rate Source Patient Position BP Location FiO2 (%) 05/20/20 1431 05/20/20 18205/20/[id number] -- Temporal Pulse Oximetry Sitting Left arm Physical Exam VS reviewed. General: No acute distress. HEENT: NCAT, PERRL, EOMI, oral mucosa moist CV: Regular, tachycardic, no murmurs, rubs, gallops. Palpable distal pulses Pulm: CTAB. Breathing comfortably. No resp distress on RA. GI: Soft, nontender, nondistended. +BS MSK: WWP. No LE edema Skin: Warm, dry, no rashes noted Neuro: A/Ox3. Answering questions appropriately, following commands. Moving all 4 extremities. Psych: Normal mood and affect MDM 55yoF with palpitations DDX: acs, arrhythmia, metabolic derangement, PE, pna Plan: labs, ekg, cxr, serial trop, IVF, call to director of restaurants Reassess MDM Attending Summary of Care ED Course as of May 20 2116 Time: 05/20 1628 Comment: D/w cards fellow ultrasonic seaming machine operator for Dr. Remy - he said he is unable to offer recommendations. We will admit here for serial trops, stress. He will let Dr. Remy know. By: Amairani Sorto MD Time: 05/20 1632 Value: D-Dimer: 386 Comment: (Reviewed) By: Amairani Sorto MD Chest pain, unspecified type Myles Dunlap MD Resident 05/20/202116 Cosigned by Amairani Sorto MD at 05/20/2020 10:03 PM BODY ENGINEER ENGINEER ENGINEER Associated attestation - Amairani Sorto MD - 05/20/2020 10:03 PM BODY ENGINEER ED Attestation I have seen and examined the patient on 05/20/2020. I agree with the findings and plan of care as documented in the resident's note. documented in this encounter Plan of Treatment Scheduled Orders Name Type Priority Associated Diagnoses Orde r Schedule Urinalysis reflex to microscopic and culture Urine Microbiology STAT STAT for 1 Occurrences starting 05/20/2020 until 05/20/2020 Scheduled Procedures Name Priority Associated Diagnoses Date/Ti me ESOPHAGOGASTRODUODENOSCOPY Nausea Colon cancer screening COLONOSCOPY Nausea Colon cancer screening documented as of this encounter Procedures Procedure Name Priority Date/Time Associated Diagnosis Comments CT CHEST PE W CONTRAST IP Routine 05/21/2020 1:54 PM BODY ENGINEER NM MPI SPECT (REST AND/OR STRESS) MULTIPLE STUDIES ED 05/21/2020 10:00 AM BODY ENGINEER EGFR Routine 05/21/2020 3:14 AM BODY ENGINEER DIFFERENTIAL AUTO Routine 05/21/2020 3:1 4 AM BODY ENGINEER CBC WITH AUTO DIFFERENTIAL Routine 05/21/2020 3:14 AM BODY ENGINEER COMPREHENSIVE METABOLIC PANEL Routine 05/21/2020 3:14 AM BODY ENGINEER TROPONIN T HIGH-SENSITIVITY 6-HOUR Timed 05/20/2020 8:45 PM BODY ENGINEER TROPONIN T HIGH-SENSITIVITY 4-HR Timed 05/20/2020 7:36 PM BODY ENGINEER TROPONIN T HIGH-SENSITIVITY 2-HOUR Timed 05/20/2020 4:57 PM BODY ENGINEER D-DIMER, QUANTITATIVE STAT 05/20/2020 4:10 PM BODY ENGINEER XR CHEST 1 VIEW ED 05/20/2020 3:02 PM BODY ENGINEER TROPONIN T HIGH-SENSITIVITY SERIES (BASELINE, 2HR, 4HR, 6HR) STAT 05/20/2020 2:51 PM BODY ENGINEER EGFR STAT 05/20/2020 2:51 PM BODY ENGINEER DIFFERENTIAL AUTO STAT 05/20/2020 2:5 1 PM BODY ENGINEER PRO B-TYPE NATRIURETIC PEPTIDE STAT 05/20/2020 2:51 PM BODY ENGINEER THYROID FUNCTION CASCADE Routine 05/20/2020 2:51 PM BODY ENGINEER CBC WITH AUTO DIFFERENTIAL STAT 05/20/2020 2:51 PM BODY ENGINEER COMPREHENSIVE METABOLIC PANEL STAT 05/20/2020 2:51 PM BODY ENGINEER ECG 12-LEAD STAT 05/20/2020 2:39 PM BODY ENGINEER documented in this encounter Results * CT Chest PE W Contrast (05/21/2020 1:54 PM BODY ENGINEER) Anatomical Region Laterality Modality Body N/A Computed Tomogra phy 05/21/2020 1:57 PM BODY ENGINEER Impressions 05/21/2020 2:17 PM BODY ENGINEER 1. ??No pulmonary embolism. 2. ??Small consolidating foci in the superior aspect of both upper lobes posteromedially likely scarring. Electronically signed by: Marco A Trejo M.D. Narrative 05/21/2020 2:17 PM BODY ENGINEER EXAMINATION: ??CT chest with IV contrast, pe protocol DATE: 05/21/2020 1:40 PM HISTORY: Shortness of breath COMPARISON :Chest x-ray 05/20/2020 and 02/25/2018 TECHNIQUE: Standard technique was performed after the IV administration of 125 ml Optiray 350 FINDINGS: No pulmonary arterial filling defect to suggest pulmonary embolism. ??Minimal thoracic aortic atherosclerosis without aneurysm or dissection. ??Mild coronary artery calcification. ??No cardiomegaly or pericardial effusion. ??No hilar or mediastinal lymphadenopathy. The left lobe of the thyroid is enlarged and extends into the superior mediastinum. Small foci of consolidation in the superior aspect of both upper lobes posteromedially likely scarring. ??Small air cyst in the right lower lobe. ??No pleural effusion or pneumothorax. Limited imaging of the upper abdomen demonstrates postcholecystectomy change. Multilevel spondylosis. ??Right glenohumeral osteoarthritis. Procedure Note Marco A Trejo MD - 05/21/2020 EXAMINATION: CT chest with IV contrast, pe protocol DATE: 05/21/2020 1:40 PM HISTORY: Shortness of breath COMPARISON :Chest x-ray 05/20/2020 and 02/25/2018 TECHNIQUE: Standard technique was performed after the IV administration of 125 ml Optiray 350 FINDINGS: No pulmonary arterial filling defect to suggest pulmonary embolism. Minimal thoracic aortic atherosclerosis without aneurysm or dissection. Mild coronary artery calcification. No cardiomegaly or pericardial effusion. No hilar or mediastinal lymphadenopathy. The left lobe of the thyroid is enlarged and extends into the superior mediastinum. Small foci of consolidation in the superior aspect of both upper lobes posteromedially likely scarring. Small air cyst in the right lower lobe. No pleural effusion or pneumothorax. Limited imaging of the upper abdomen demonstrates postcholecystectomy change. Multilevel spondylosis. Right glenohumeral osteoarthritis. IMPRESSION: 1. No pulmonary embolism. 2. Small consolidating foci in the superior aspect of both upper lobes posteromedially likely scarring. Electronically signed by: Marco A Trejo M.D. Amanda Parra MD IMG CT PROCEDURES Final Result * NM MPI Spect (Rest And Stress) Multiple Studies (05/21/2020 10:00 AM BODY ENGINEER) Anatomical Region Laterality Modality Body N/A Nuclear Medicine 05/21/2020 8:20 AM BODY ENGINEER Narrative 05/21/2020 10:30 AM BODY ENGINEER [address] [place], [place] [address] MPI Imaging Report Patient Name: MYLES SAUCEDA J : 1965 Study Date: 05/21/2020 8:20:40 AM Gender: F Tech: Danielle Montes RN Location: [id number] Ref.Provider: DAYNABECKI Height(Cm): 162.6 BSA: Weight(Kg): 88.3 Heart Rate: 80 Order Provider: AMAIRANI SORTO PROCEDURES: Pharmacologic SPECT Report.: Myocardial perfusion imaging with Sestamibi SPECT at rest and post regadenoson (Lexiscan) infusion. RISK FACTORS: Present/past smoker. Hypertension. Family history of CAD. PHYSICAL EXAM: Breath sounds are clear to auscultation bilaterally. Heart tones reveal S1, S2 with systolic murmur noted. INDICATIONS: Chest pain, precordial 786.51. FINDINGS: Performed By: Danielle Montes RN. Procedure Data: One day rest/stress protocol was used. Myoview injected at rest was 10.8 millicuries. Lexiscan was injected into the left arm IV site. Lexiscan dose was 0.4 mg. Myoview injected after Lexiscan infusion was 33.0 mCi. Resting HR 80 bpm. Resting BP: 113/62 mmHg. Reason for termination was Lexiscan protocol complete. Peak HR: 107 bpm. Peak BP: 124/73 mmHg. ECG Findings: Resting ECG shows normal sinus rhythm. Resting EKG shows left bundle branch block. Cardiac Symptoms: Patient had no symptoms during stress test. Hemodynamic Response: Heart rate is normal. Blood pressure is normal. SPO2 normal. Post ECG: Non-diagnostic EKG due to resting EKG changes. Arrhythmia: No arrhythmias seen. Perfusion: Abnormal perfusion imaging with a small nontransmural exercise-induced anterior apical defect consistent with ischemia. This may also represent an artifact of the patient's left bundle-branch block. LV Function: Left ventricular ejection fraction is 41 %. There is mild to moderate LV dysfunction. Study Quality: The study was technically adequate. Exam: This exam was read at [facility]. CONCLUSIONS: Non-diagnostic EKG due to resting EKG changes. Left ventricular ejection fraction is 41 %. There is mild to moderate LV dysfunction. Abnormal perfusion imaging with a small nontransmural exercise-induced anterior apical defect consistent with ischemia. This may also represent an artifact of the patient's left bundle-branch block. Findings are suggestive of ischemia as noted above versus artifact of left bundle-branch block. Clinical correlation strongly advised. Electronically Signed By: Tacho Barragan MD, [facility] 2020-05-21 10:30:36 BODY ENGINEER CC: CC: Procedure Note Tacho Barragan MD - 05/21/[address] [place] [address] MPI Imaging Report Patient Name: MYLES SAUCEDA JPatient ID: [id number] : [id number] Date: 05/21/2020 8:20:40 AM Gender: FAccession #: [id number] Tech: Danielle Montes RNLocation: [id number] Ref.Provider: Gita LOVETT(Cm): 162.6 BSA: Weight(Kg): 88.3 Heart Rate: 80Order Provider: AMAIRANI SORTO PROCEDURES: Pharmacologic SPECT Report.: Myocardial perfusion imaging with Sestamibi SPECT at rest and postregadenoson (Lexiscan) infusion. RISK FACTORS: Present/past smoker. Hypertension. Family history of CAD. PHYSICAL EXAM: Breath sounds are clear to auscultation bilaterally. Heart tones revealS1, S2 with systolic murmur noted. INDICATIONS: Chest pain, precordial 786.51. FINDINGS: Performed By: Danielle Montes RN. Procedure Data: One day rest/stress protocol was used. Myoview injected at rest was 10.8millicuries. Lexiscan was injected into the left arm IV site. Lexiscan dose was 0.4 mg.Myoview injected after Lexiscan infusion was 33.0 mCi. Resting HR 80 bpm. RestingBP: 113/62 mmHg. Reason for termination was Lexiscan protocol complete. Peak HR: 107bpm. Peak BP: 124/73 mmHg. ECG Findings: Resting ECG shows normal sinus rhythm. Resting EKG shows left bundlebranch block. Cardiac Symptoms: Patient had no symptoms during stress test. Hemodynamic Response: Heart rate is normal. Blood pressure is normal. SPO2 normal. Post ECG: Non-diagnostic EKG due to resting EKG changes. Arrhythmia: No arrhythmias seen. Perfusion: Abnormal perfusion imaging with a small nontransmural exercise-inducedanterior apical defect consistent with ischemia. This may also represent an artifact ofthe patient's left bundle-branch block. LV Function: Left ventricular ejection fraction is 41 %. There is mild to moderate LVdysfunction. Study Quality: The study was technically adequate. Exam: This exam was read at [facility]. CONCLUSIONS: Non-diagnostic EKG due to resting EKG changes. Left ventricular ejection fraction is 41 %. There is mild to moderate LVdysfunction. Abnormal perfusion imaging with a small nontransmural exercise-inducedanterior apical defect consistent with ischemia. This may also represent an artifact ofthe patient's left bundle-branch block. Findings are suggestive of ischemia as noted above versus artifact of leftbundle-branch block. Clinical correlation strongly advised. Electronically Signed By: Tacho Barragan MD, [facility] 2020-05-21 10:30:36 BODY ENGINEER CC: CC: us Amairani Sorto MD IMG NM PROCEDURES Final R esult * eGFR (05/21/2020 3:14 AM BODY ENGINEER) eGFR 84 mL/min/1.7 3 m2 [facility] Comment: Interpretive Data Reference Interval Normal ?>/= [...] interpretive data was last reviewed 2020 Blood specimen (specimen) 05/21/2020 3:14 AM BODY ENGINEER 05/21/2020 4:27 AM BODY ENGINEER us Amairani Sorto MD LAB BLOOD ORDERABLES Arlen saenz Result [address] Department [place] [address] * (ABNORMAL) Differential, auto (05/21/2020 3:14 AM BODY ENGINEER) Neutrophil abs 2.8 1.7 - 6.5 K/cumm [facility] Imm gran abs 0.0 0.0 - 0.1 K/cumm [facility] Lymphocyte abs 3.6(H) 0.8 - 3.3 K/cumm [facility] Monocyte abs 0.6 0.2 - 0.8 K/cumm [facility] Eosinophil abs 0.1 0.0 - 0.5 K/cumm [facility] Basophil abs 0.0 0.0 - 0.1 K/cumm [facility] Neutrophil pct 39.3 % [facility] Comment: Interpretive Data Percent cell count reference ranges are not reported, since discordance with absolute values may lead to misinterpretation of CBC data. Current Interpretive Data was last revised on 2017. Imm gran pct 0.1 % [facility] Comment: Interpretive Data Percent cell count reference ranges are not reported, since discordance with absolute values may lead to misinterpretation of CBC data. Current Interpretive Data was last revised on 2017. Lymphocyte pct 50.1 % [facility] Comment: Interpretive Data Percent cell count reference ranges are not reported, since discordance with absolute values may lead to misinterpretation of CBC data. Current Interpretive Data was last revised on 2017. Monocyte pct 8.4 % [facility] Comment: Interpretive Data Percent cell count reference ranges are not reported, since discordance with absolute values may lead to misinterpretation of CBC data. Current Interpretive Data was last revised on 2017. Eosinophil pct 1.5 % [facility] Comment: Interpretive Data Percent cell count reference ranges are not reported, since discordance with absolute values may lead to misinterpretation of CBC data. Current Interpretive Data was last revised on 2017. Basophil pct 0.6 % [facility] Comment: Interpretive Data Percent cell count reference ranges are not reported, since discordance with absolute values may lead to misinterpretation of CBC data. Current Interpretive Data was last revised on 2017. Blood specimen (specimen) 05/21/2020 3:14 AM BODY ENGINEER 05/21/2020 4:28 AM BODY ENGINEER Amairani Sorto MD LAB BLOOD ORDERABLES Arlen saenz Result [facility] [address] [facility] Department [place] [address] * Comprehensive metabolic panel (05/21/2020 3:14 AM BODY ENGINEER) Sodium 141 135 - 145 mmol/L [facility] Potassium, pl 4.1 3.3 - 4.9 mmol/L [facility] Chloride 106 97 - 110 mmol/L [facility] CO2 25 22 - 32 mmol/L [facility] Anion gap 10 2 - 15 mmol/L [facility] BUN 18 8 - 25 mg/dL [facility] Creatinine 0.79 0.60 - 1.10 mg/dL [facility] Glucose 136 70 - 199 mg/dL [facility] Comment: Interpretive Data Fasting glucose >/= 126 [...] interpretive data was last revised 2017. Calcium 9.1 8.5 - 10.3 mg/dL [facility] Bilirubin, total 0.3 0.1 - 1.2 mg/dL [facility] Protein, pl 6.6 6.5 - 8.5 g/dL [facility] Albumin 3.8 3.5 - 5.0 g/dL [facility] Alk phos 76 40 - 130 Units/L [facility] ALT 20 7 - 45 Units/L [facility] AST 17 10 - 45 Units/L [facility] Blood specimen (specimen) 05/21/2020 3:14 AM BODY ENGINEER 05/21/2020 4:27 AM BODY ENGINEER Amairani Sorto MD LAB BLOOD ORDERABLES Arlen l Result Performing Organization Address [facility] Co de Phone Number [address] [place] [address] * (ABNORMAL) CBC with auto differential (05/21/2020 3:14 AM BODY ENGINEER) [facility] WBC 7.1 3.8 - 9.9 K/cumm [facility] Hgb 11.8(L) 11.9 - 15.5 g/dL [facility] Hct 36.7 35.6 - 45.5 % [facility] Plt 368 150 - 400 K/cumm [facility] MPV 9.4 9.1 - 12.3 fL [facility] RBC 4.12 3.90 - 5.20 M/cumm [facility] MCV 89.1 81.3 - 96.4 fL [facility] MCH 28.6 27.1 - 33.3 pg [facility] MCHC 32.2(L) 32.3 - 35.7 g/dL [facility] RDW CV 14.3 11.1 - 14.9 % [facility] RDW SD 46.2 35.7 - 48.1 fL [facility] NRBC abs 0.00 0.00 - 0.01 K/cumm [facility] Blood specimen (specimen) 05/21/2020 3:14 AM BODY ENGINEER 05/21/2020 4:28 AM BODY ENGINEER Amairani Sorto MD LAB BLOOD ORDERABLES Arlen l Result Performing Organization Address City/[facility]/ZIP Co de Phone Number [address] [address] * Troponin T high-sensitivity 6-hour (05/20/2020 8:45 PM BODY ENGINEER) Trop T hs 6 <=14 ng/L [facility] Comment: Interpretive Data For further hscTnT resources including the diagnostic algorithm and an aid in interpretation, copy and paste this link: https://nrl.SocialGuides.org/show/hsTrop Current Interpretive Data last revised 2020. Trop T hs delta 0 ng/L [facility] Trop T hs interp Insignificant [facility] Blood specimen (specimen) 05/20/2020 8:45 PM BODY ENGINEER 05/20/2020 8:50 PM BODY ENGINEER us Mac Uriarte MD LAB BLOOD ORDERABLES Final Result Performing Organization Address [facility] Co de Phone Number [address] [address] * Troponin T high-sensitivity 4-hour (05/20/2020 7:36 PM BODY ENGINEER) Pathologist [facility] Trop T hs 6 <=14 ng/L [facility] Comment: Interpretive Data For further hscTnT resources including the diagnostic algorithm and an aid in interpretation, copy and paste this link: https://nrl.[employer]Gu[employer].org/show/hsTrop Current Interpretive Data last revised 2020. Trop T hs delta 0 ng/L [facility] Trop T hs interp Insignificant [facility] Blood specimen (specimen) 05/20/2020 7:36 PM BODY ENGINEER 05/20/2020 7:42 PM BODY ENGINEER us Mac Uriarte MD LAB BLOOD ORDERABLES Final Result Performing Organization Address [facility] Co de Phone Number [address] [address] * Troponin T high-sensitivity 2-hour (05/20/2020 4:57 PM BODY ENGINEER) Trop T hs 6 <=14 ng/L [facility] Comment: Interpretive Data For further hscTnT resources including the diagnostic algorithm and an aid in interpretation, copy and paste this link: https://nrl.testcatalog.org/show/hsTrop Current Interpretive Data last revised 2020. Trop T hs delta 0 ng/L [facility] Trop T hs interp Insignificant [facility] Blood specimen (specimen) 05/20/2020 4:57 PM BODY ENGINEER 05/20/2020 5:04 PM BODY ENGINEER us Mac Uriarte MD LAB BLOOD ORDERABLES Final Result Performing Organization Address [facility] Co de Phone Number [address] Department [place] [address] * D-dimer, quantitative (05/20/2020 4:10 PM BODY ENGINEER) D-Dimer 386 <=499 ng/mL [facility] Comment: Interpretive data FDA approved the D-dimer, in [...] data was last revised on 2019. Blood specimen (specimen) 05/20/2020 4:10 PM BODY ENGINEER 05/20/2020 4:15 PM BODY ENGINEER us Myles Dunlap MD LAB BLOOD ORDERABLES Final Resu lt [facility] [address] [place] [address] * XR Chest 1 Vw Portable (05/20/2020 3:02 PM BODY ENGINEER) Anatomical Region Laterality Modality Body, Chest N/A Computed Radiogr aphy 05/21/2020 7:35 AM BODY ENGINEER Impressions 05/21/2020 7:44 AM BODY ENGINEER 1. Clear lungs. Electronically signed by: Dejan Eckert M.D. Narrative 05/21/2020 7:44 AM BODY ENGINEER EXAMINATION: Chest Radiograph, 1 view DATE: 05/20/2020 2:45 PM HISTORY: ??Heart palpitations. COMPARISON: 02/25/2018. ?? FINDINGS: ??The lungs are clear. No focal pneumonic consolidation, pleural effusion, or pneumothorax. The cardiomediastinal silhouette is normal. Procedure Note Dejan Eckert MD - 05/21/2020 EXAMINATION: Chest Radiograph, 1 view DATE: 05/20/2020 2:45 PM HISTORY: Heart palpitations. COMPARISON: 02/25/2018. FINDINGS: The lungs are clear. No focal pneumonic consolidation, pleural effusion, or pneumothorax. The cardiomediastinal silhouette is normal. IMPRESSION: 1. Clear lungs. Electronically signed by: Dejan Eckert M.D. Amairani Sorto MD IMG XR PROCEDURES Final R esult * eGFR (05/20/2020 2:51 PM BODY ENGINEER) eGFR 69 mL/min/1.7 3 m2 [facility] Comment: Interpretive Data Reference Interval Normal ?>/= [...] interpretive data was last reviewed 2020 Blood specimen (specimen) 05/20/2020 2:51 PM BODY ENGINEER 05/20/2020 3:10 PM BODY ENGINEER us Amairani Sorto MD LAB BLOOD ORDERABLES Arlen saenz Result Performing Organization Address City/State/[facility] Co de Phone Number [address] Department [place] [address] * Differential, auto (05/20/2020 2:51 PM BODY ENGINEER) Neutrophil abs 6.0 1.7 - 6.5 K/cumm [facility] Imm gran abs 0.0 0.0 - 0.1 K/cumm [facility] Lymphocyte abs 3.1 0.8 - 3.3 K/cumm [facility] Monocyte abs 0.7 0.2 - 0.8 K/cumm [facility] Eosinophil abs 0.1 0.0 - 0.5 K/cumm [facility] Basophil abs 0.1 0.0 - 0.1 K/cumm [facility] Neutrophil pct 60.2 % [facility] Comment: Interpretive Data Percent cell count reference ranges are not reported, since discordance with absolute values may lead to misinterpretation of CBC data. Current Interpretive Data was last revised on 2017. Imm gran pct 0.3 % [facility] Comment: Interpretive Data Percent cell count reference ranges are not reported, since discordance with absolute values may lead to misinterpretation of CBC data. Current Interpretive Data was last revised on 2017. Lymphocyte pct 30.9 % [facility] Comment: Interpretive Data Percent cell count reference ranges are not reported, since discordance with absolute values may lead to misinterpretation of CBC data. Current Interpretive Data was last revised on 2017. Monocyte pct 7.5 % [facility] Comment: Interpretive Data Percent cell count reference ranges are not reported, since discordance with absolute values may lead to misinterpretation of CBC data. Current Interpretive Data was last revised on 2017. Eosinophil pct 0.6 % [facility] Comment: Interpretive Data Percent cell count reference ranges are not reported, since discordance with absolute values may lead to misinterpretation of CBC data. Current Interpretive Data was last revised on 2017. Basophil pct 0.5 % [facility] Comment: Interpretive Data Percent cell count reference ranges are not reported, since discordance with absolute values may lead to misinterpretation of CBC data. Current Interpretive Data was last revised on 2017. Blood specimen (specimen) 05/20/2020 2:51 PM BODY ENGINEER 05/20/2020 3:10 PM BODY ENGINEER us Amairani Sorto MD LAB BLOOD ORDERABLES Arlen l Result Performing Organization Address [facility]/ZIP Co de Phone Number [address] Department [place] [employer] [place] [place] [address] * TSH reflex to free T4 (05/20/2020 2:51 PM BODY ENGINEER) TSH 1.56 0.30 - 4.20 mcIUnit/mL [facility] Blood specimen (specimen) 05/20/2020 2:51 PM BODY ENGINEER 05/20/2020 3:10 PM BODY ENGINEER us Myles Dunlap MD LAB BLOOD ORDERABLES Final Resu lt Performing Organization Address [facility]/ZIP Co de Phone Number [address] Department [place] [address] * Pro B-type natriuretic peptide (05/20/2020 2:51 PM BODY ENGINEER) NT-proBNP 84 <=300 pg/mL [facility] Comment: Interpretive Comments: A. Dyspnea in Acute [...] Eur Heart J. 2006:27:330-337. 2. Andre RW, Kausahl AM. J. AM Hector Cardiol: Cardiovasc Imag. 2009;2: 216- 225. Interpretive Data Last Revised Date: 2017. Blood specimen (specimen) 05/20/2020 2:51 PM BODY ENGINEER 05/20/2020 3:10 PM BODY ENGINEER us Myles Dunlap MD LAB BLOOD ORDERABLES Final Resu lt [facility] [address] [facility] Department [place] [address] * Comprehensive metabolic panel (05/20/2020 2:51 PM BODY ENGINEER) Sodium 140 135 - 145 mmol/L [facility] Potassium, pl 3.8 3.3 - 4.9 mmol/L [facility] Chloride 104 97 - 110 mmol/L [facility] CO2 22 22 - 32 mmol/L [facility] Anion gap 14 2 - 15 mmol/L [facility] BUN 18 8 - 25 mg/dL [facility] Creatinine 0.93 0.60 - 1.10 mg/dL [facility] Glucose 177 70 - 199 mg/dL [facility] Comment: Interpretive Data Fasting glucose >/= 126 [...] Calcium 9.3 8.5 - 10.3 mg/dL [facility] Bilirubin, total 0.2 0.1 - 1.2 mg/dL [facility] Protein, pl 7.6 6.5 - 8.5 g/dL [facility] Albumin 4.5 3.5 - 5.0 g/dL [facility] Alk phos 88 40 - 130 Units/L [facility] ALT 24 7 - 45 Units/L [facility] AST 19 10 - 45 Units/L [facility] Blood specimen (specimen) 05/20/2020 2:51 PM BODY ENGINEER 05/20/2020 3:10 PM BODY ENGINEER Amairani Sorto MD LAB BLOOD ORDERABLES Arlen saenz Result Performing Organization Address [facility] de Phone Number [address] [address] * Troponin T high-sensitivity series (baseline, 2hr, 4hr, 6hr) (05/20/2020 2:51 PM BODY ENGINEER) [facility] Trop T hs <6 <=14 ng/L [facility] Comment: Interpretive Data For further hscTnT resources including the diagnostic algorithm and an aid in interpretation, copy and paste this link: https://nrl.testcatalog.org/show/hsTrop Current Interpretive Data last revised 2020. Blood specimen (specimen) 05/20/2020 2:51 PM BODY ENGINEER 05/20/2020 3:10 PM BODY ENGINEER Amairani Sorto MD LAB BLOOD ORDERABLES Arlen saenz Result Performing Organization Address [facility] de Phone Number [address] [address] * (ABNORMAL) CBC with auto differential (05/20/2020 2:51 PM BODY ENGINEER) [facility] WBC 9.9 3.8 - 9.9 K/cumm [facility] Hgb 13.0 11.9 - 15.5 g/dL [facility] Hct 39.4 35.6 - 45.5 % [facility] Plt 409(H) 150 - 400 K/cumm [facility] MPV 8.8(L) 9.1 - 12.3 fL [facility] RBC 4.58 3.90 - 5.20 M/cumm [facility] MCV 86.0 81.3 - 96.4 fL [facility] MCH 28.4 27.1 - 33.3 pg [facility] MCHC 33.0 32.3 - 35.7 g/dL [facility] RDW CV 14.0 11.1 - 14.9 % [facility] RDW SD 43.9 35.7 - 48.1 fL [facility] NRBC abs 0.00 0.00 - 0.01 K/cumm [facility] Blood specimen (specimen) (Blood, Venous) 05/20/2020 2:51 PM BODY ENGINEER 05/20/2020 3:10 PM BODY ENGINEER Amairani Sorto MD LAB BLOOD ORDERABLES Arlen l Result Performing Organization Address [facility] Co de Phone Number [address] Department [place] [address] * ECG 12 lead (05/20/2020 2:39 PM BODY ENGINEER) 05/20/2020 2:39 PM BODY ENGINEER Narrative [facility] - 05/21/2020 8:51 AM BODY ENGINEER Vent Rate: 123 bpm RR Interval: 485 msec MA Interval: 132 msec QRS Duration: 154 msec QT Interval: 340 msec QTC Interval: 413 msec P-R-T [place]: 50 - 0 - 138 degrees SINUS TACHYCARDIA LEFT BUNDLE BRANCH BLOCK ABNORMAL ECG Electronically Signed By: Becki Navarro DO, [facility] Mac Uriarte MD ECG ORDERABLES Final Resul t Performing Organization Address [facility] Co de Phone Number [facility] amprice [facility] documented in this encounter Visit Diagnoses Diagnosis Chest pain- Primary Unspecified chest pain Chest pain, unspecified type documented in this encounter Admitting Diagnoses Diagnosis Chest pain Unspecified chest pain documented in this encounter Administered Medications Inactive Administered Medications - up to 3 most recent administrations Medication Order MAR Action Action Date Dose Rate Site acetaminophen (TYLENOL) tablet 650 mg 650 mg, oral, Every 6 hours PRN, headaches, Starting on 05/21/20 at 1152 Given 05/21/2020 11:56 AM BODY ENGINEER 650 mg aspirin enteric coated tablet 81 mg 81 mg, oral, Once, On 05/20/20 at 2345, For 1 dose, Do not crush, chew, cut, dissolve, open or otherwise manipulate tablet/capsule. Given 05/21/2020 12:18 AM BODY ENGINEER 81 mg buPROPion XL (WELLBUTRIN XL) 24 hour tablet 300 mg 300 mg, oral, Nightly, First dose (after last modification) on Thu05/21/20 at 0130, Do not crush, chew, cut, dissolve, open or otherwise manipulate tablet/capsule. Given 05/21/2020 1:07 AM BODY ENGINEER 300 mg enoxaparin (LOVENOX) syringe 40 mg 40 mg, subcutaneous, Daily (for enoxaparin), First dose on Thu05/20/20 at 2345, Indications: Deep Vein Thrombosis PreventionIndications:D eep Vein Thrombosis Prevention Given 05/21/2020 12:19 AM BODY ENGINEER 40 mg Left Lower Abdomen ioversoL (OPTIRAY 350) syringe syringe 125 mL 125 mL, intravenous, Once in imaging, contrast, Starting on Thu05/21/20 at 1346, For 1 dose Given 05/21/2020 1:55 PM BODY ENGINEER 125 mL isosorbide mononitrate ER (IMDUR) extended release tablet 30 mg 30 mg, oral, Nightly, First dose (after last modification) on Thu05/21/20 at 0130, Tablets that are scored may be split, but do not crush, chew, dissolve, open or otherwise manipulate tablet/capsule. Given 05/21/2020 1:07 AM BODY ENGINEER 30 mg Lactated Ringer's (LR) bolus 500 mL 500 mL, intravenous, Once, On Thu05/20/20 at 1446, For 1 dose New Bag 05/20/2020 3:09 PM BODY ENGINEER 500 mL losartan (COZAAR) tablet 50 mg 50 mg, oral, Daily, First dose on Thu05/20/20 at 2345, Hold for BP < 110/60 Given 05/21/2020 12:18 AM BODY ENGINEER 50 mg losartan (COZAAR) tablet 50 mg 50 mg, oral, Nightly, First dose (after last modification) on Thu05/21/20 at 2100, Hold for BP < 110/60 metoprolol XL (TOPROL-XL) extended release tablet 50 mg 50 mg, oral, Daily, First dose on Thu05/20/20 at 1645, Hold for BP < 110/60 or HR < 60 Tablets that are scored may be split, but do not crush, chew, dissolve, open or otherwise manipulate tablet/capsule. Given 05/20/2020 4:36 PM BODY ENGINEER 50 mg ondansetron (ZOFRAN) injection 4 mg 4 mg, intravenous, Administer over 2 Minutes, Every 6 hours PRN, nausea, vomiting, if not tolerating PO, Starting on Thu05/20/20 at 1754, Indications: Nausea and VomitingIndications:[place] and Vomiting ondansetron ODT (ZOFRAN-ODT) disintegrating tablet 4 mg 4 mg, oral, Every 6 hours PRN, nausea, vomiting, Starting on Thu05/20/20 at 1754, Indications: Nausea and VomitingIndications:[place] and Vomiting pantoprazole DR (PROTONIX) extended release tablet 40 mg 40 mg, oral, Daily, First dose (after last modification) on Thu05/20/20 at 2345, Do not crush, chew, cut, dissolve, open or otherwise manipulate tablet/capsule., Indications: Stress Ulcer ProphylaxisIndications: Stress Ulcer Prophylaxis Given 05/21/2020 12:18 AM BODY ENGINEER [address] (PROTONIX) extended release tablet 40 mg 40 mg, oral, Nightly, First dose (after last modification) on Thu05/21/20 at 2100, Do not crush, chew, cut, dissolve, open or otherwise manipulate tablet/capsule., Indications: Stress Ulcer ProphylaxisIndications: Stress Ulcer Prophylaxis regadenoson (LEXISCAN) 0.4 mg/5 mL injection 0.4 mg 0.4 mg, intravenous, Once, On Thu05/21/20 at 0945, For 1 dose, Intra-Procedure (CV), Administer IV push over 10 seconds., Indications: Myocardial Perfusion Imaging AdjunctIndications:Myoc ardial Perfusion Imaging Adjunct Given 05/21/2020 9:26 AM BODY ENGINEER 0.4 mg sodium chloride 0.9% flush 5 mL 5 mL, intravenous, Once, On Thu05/21/20 at 0945, For 1 dose, Intra-Procedure (CV) Given 05/21/2020 9:27 AM BODY ENGINEER 5 mL tc-99m tetrofosmin (MYOVIEW) injection 10.8 millicurie 10.8 millicurie, intravenous, Once in imaging, radiopharmaceutical, Starting on Thu05/21/20 at 0744, For 1 dose, Indications: Diagnostic RadiographyIndications: Diagnostic Radiography Given 05/21/2020 7:44 AM BODY ENGINEER 10.8 millicuries tc-99m tetrofosmin (MYOVIEW) injection 30 millicurie 30 millicurie, intravenous, Once in imaging, radiopharmaceutical, Starting on Thu05/21/20 at 0744, For 1 dose, Indications: Diagnostic RadiographyIndications: Diagnostic Radiography Given 05/21/2020 9:35 AM BODY ENGINEER 33 millicuries documented in this encounter Discontinued Medications Medication Sig Discontinue Reason Start Date End Da te escitalopram (LEXAPRO) 5 mg tablet Take 5 mg by mouth daily. 12/31/2017 05/20/2020 azithromycin (ZITHROMAX) 250 mg tablet 06/07/2018 05/20/[address] (VOLTAREN) 50 mg EC tablet Take 50 mg by mouth 2 (two) times a day 04/06/2018 05/20/2020 documented as of this encounter Historical Medications * This list may reflect changes made after this encounter. loratadine (CLARITIN) 10 mg tablet Take 10 mg by mouth daily 09/09/2022 added in this encounter Active and Recently Administered Medications Times are shown in BODY ENGINEER. Scheduled Medication Order 05/19/2020 05/20/2020 05/21/2020 aspirin enteric coated tablet 81 mg (COMPLETED) 81 mg, oral, Once, On 05/20/20 at 2345, For 1 dose, Do not crush, chew, cut, dissolve, open or otherwise manipulate tablet/capsule. 0018 (Given - Provid er: Nancy Shahid RN) buPROPion XL (WELLBUTRIN XL) 24 hour tablet 300 mg 300 mg, oral, Nightly, First dose (after last modification) on Thu05/21/20 at 0130, Do not crush, chew, cut, dissolve, open or otherwise manipulate tablet/capsule. 0107 (Given - Provid er: Nancy Shahid RN) enoxaparin (LOVENOX) syringe 40 mg 40 mg, subcutaneous, Daily (for enoxaparin), First dose on 3/7/21 at 2345, Indications: Deep Vein Thrombosis Prevention 0019 (Given - Provid er: Nancy Shahid RN) isosorbide mononitrate ER (IMDUR) extended release tablet 30 mg 30 mg, oral, Nightly, First dose (after last modification) on Thu05/21/20 at 0130, Tablets that are scored may be split, but do not crush, chew, dissolve, open or otherwise manipulate tablet/capsule. 0107 (Given - Provid er: Nancy Shahid RN) Lactated Ringer's (LR) bolus 500 mL (COMPLETED) 500 mL, intravenous, Once, On Thu05/20/20 at 1446, For 1 dose 1509 (New Bag - Provider: Kusum Valencia, ESAU)1600 (Stopped - Provider: Kusum Valencia RN) losartan (COZAAR) tablet 50 mg (CANCELED) 50 mg, oral, Daily, First dose on 05/20/20 at 2345, Hold for BP < 110/60 0018 (Given - Provid er: Nancy Shahid RN) losartan (COZAAR) tablet 50 mg 50 mg, oral, Nightly, First dose (after last modification) on Thu05/21/20 at 2100, Hold for BP < 110/60 metoprolol XL (TOPROL-XL) extended release tablet 50 mg 50 mg, oral, Daily, First dose on Thu05/20/20 at 1645, Hold for BP < 110/60 or HR < 60 Tablets that are scored may be split, but do not crush, chew, dissolve, open or otherwise manipulate tablet/capsule. 1636 (Given - Provider: Kathy Platt RN) pantoprazole DR (PROTONIX) extended release tablet 40 mg (CANCELED) 40 mg, oral, Daily, First dose (after last modification) on Thu05/20/20 at 2345, Do not crush, chew, cut, dissolve, open or otherwise manipulate tablet/capsule., Indications: Stress Ulcer Prophylaxis 0018 (Given - Provid er: Nancy Shahid RN) pantoprazole DR (PROTONIX) extended release tablet 40 mg 40 mg, oral, Nightly, First dose (after last modification) on Thu05/21/20 at 2100, Do not crush, chew, cut, dissolve, open or otherwise manipulate tablet/capsule., Indications: Stress Ulcer Prophylaxis regadenoson (LEXISCAN) 0.4 mg/5 mL injection 0.4 mg (COMPLETED) 0.4 mg, intravenous, Once, On Thu05/21/20 at 0945, For 1 dose, Intra-Procedure (CV), Administer IV push over 10 seconds., Indications: Myocardial Perfusion Imaging Adjunct 925 (Given - Provid er: Kathy Deluca, ESAU) sodium chloride 0.9% flush 5 mL (COMPLETED) 5 mL, intravenous, Once, On Thu05/21/20 at 0945, For 1 dose, Intra-Procedure (CV) 09 (Given - Provid er: Kathy Deluca RN) PRN Medication Order 05/19/2020 05/20/2020 05/21/2020 acetaminophen (TYLENOL) tablet 650 mg 650 mg, oral, Every 6 hours PRN, headaches, Starting on Thu05/21/20 at 1152 1156 (Given - Provid er: Kaylee Leggett RN) ioversoL (OPTIRAY 350) syringe syringe 125 mL (COMPLETED) 125 mL, intravenous, Once in imaging, contrast, Starting on Thu05/21/20 at 1346, For 1 dose 1355 (Given - Provid er: Erika Kumari, RT) morphine injection 2 mg 2 mg, intravenous, Administer over 4 Minutes, Every 3 hours PRN, 1st line for pain, Starting on Thu05/20/20 at 1754, May repeat in 30 minutes if pain is uncontrolled or increasing. Max 2 doses within 1 dosing interval., Indications: Pain ondansetron (ZOFRAN) injection 4 mg(Linked Group 1) 4 mg, intravenous, Administer over 2 Minutes, Every 6 hours PRN, nausea, vomiting, if not tolerating PO, Starting on Thu05/20/20 at 1754, Indications: Nausea and Vomiting ondansetron ODT (ZOFRAN-ODT) disintegrating tablet 4 mg(Linked Group 1) 4 mg, oral, Every 6 hours PRN, nausea, vomiting, Starting on Thu05/20/20 at 1754, Indications: Nausea and Vomiting tc-99m tetrofosmin (MYOVIEW) injection 10.8 millicurie (COMPLETED) 10.8 millicurie, intravenous, Once in imaging, radiopharmaceutical, Starting on 05/21/20 at 0744, For 1 dose, Indications: Diagnostic Radiography 0744 (Given - Provid er: Dori Caicedo, RT) tc-99m tetrofosmin (MYOVIEW) injection 30 millicurie (COMPLETED) 30 millicurie, intravenous, Once in imaging, radiopharmaceutical, Starting on 05/21/20 at 0744, For 1 dose, Indications: Diagnostic Radiography 0935 (Given - Provid er: Dori Caicedo, RT) Linked Groups Order Group 1: ondansetron ODT (ZOFRAN-ODT) disintegrating tablet 4 mgJump to med 4 mg, oral, Every 6 hours PRN, nausea, vomiting, Starting on 05/20/20 at 1754, Indications: Nausea and Vomiting Or ondansetron (ZOFRAN) injection 4 mgJump to med 4 mg, intravenous, Administer over 2 Minutes, Every 6 hours PRN, nausea, vomiting, if not tolerating PO, Starting on 05/20/20 at 1754, Indications: Nausea and Vomiting documented in this encounter Orders Medications Ordered That Allan ht Not Have Been Administered Count Last Ordered Date First Ordered Date losartan (COZAAR) tablet 50 mg 1 05/21/[address] (PROTONIX) e xtended release tablet 40 mg 2 05/21/2020 05/20/2020 buPROPion XL (WELLBUTRIN XL) 24 hour tablet 300 mg 1 05/20/2020 isosorbide mononitrate ER (I MDUR) extended release tablet 30 mg 1 05/20/2020 morphine injection 2 mg 1 05/20/2020 ondansetron (ZOFRAN) injection 4 mg 1 05/20 ondansetron ODT (ZOFRAN-ODT) disintegrating tablet 4 mg 1 05/20/2020 Diet Count Last Ordered Date First Orde red Date ADULT DISCHARGE DIET 1 05/21/2020 Nursing Count Last Ordered Date First Orde red Date CARDIO RESPIRATORY MONITORING 1 05/20/2020 NURSING COMMUNICATION 1 05/20/2020 Consult Count Last Ordered Date First Orde red Date IP CONSULT TO CARDIOLOGY 1 05/20/2020 IP CONSULT TO NUTRITION SERVICES 1 05/21/19 21 IV Count Last Ordered Date First Orde red Date SALINE LOCK IV 1 05/20/2020 ADT Patient Update Count Last Ordered Date Firs t Ordered Date ED IP DECISION TO ADMIT 1 05/20/2020 documented in this encounter Care Teams Environmental Monitoring Specialist Relationship Specialty Start Date End Date Newton Mendiola MD [id number] [place] [address] PCP - General 06/09/16 Sly Cade MD [address] [facility] [address] [place] [address] Referring Physician Cardiology 12/07/18 documented as of this encounter
--- OUTSIDE RECORDS SUMMARY | 2024-03-18 05:02 | XMS_ITS | Encounter Summary ---
Author Organization [facility] Address [address] [place] [address] Phone Care Team Providers Care School Photographer Name Role Phone Newton Mendiola MD Primary Care Provider [phone] Sly Cade MD Unavailable Encounter Details Date Type Department Care Team (Late st Contact Info) Description 07/13/2020 Telephone [facility] Cardiology [address] [facility] Advanced Medicine 8th [place] [address] [place] [address] Matt Remy MD [address] [place] [address] Social History Tobacco Use Types Packs/Day Years Used Date Smoking Tobacco: Former Cigarettes Smokeless Tobacco: Never Alcohol Use Standard Drinks/Week Comments No 0 (1 standard drink = 0.6 oz pur e alcohol) Comments No Sex and Gender Information Value Date Recorded Sex Assigned at Not on file Legal Sex Female 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 * Telephone Encounter - Gabriela Panye BS - 07/13/2020 4:20 PM CDT PT CALLING TO SEE IF SHE IS TO TAKE THE METOPROLOL DOSAGE 200 MG TOGETHER OR SPLIT IT. CAN LEAVE A DETAILED MESSAGE. * Telephone Encounter - Chacha Valencia, RN - 07/13/2020 12:13 PM CDT See other encounter. * Telephone Encounter - Anna Cervantes - 07/13/2020 12:00 PM CDT NEREIDA PT RETURNING CALL FROM TODAY documented in this encounter Plan of Treatment Scheduled Procedures Name Priority Associated Diagnoses Date/Ti me ESOPHAGOGASTRODUODENOSCOPY Nausea Colon cancer screening COLONOSCOPY Nausea Colon cancer screening documented as of this encounter Visit Diagnoses Not on filedocumented in this encounter Care Teams School Photographer Relationship Specialty Start Date End Date Newton Mendiola MD [address] [address] PCP - General 06/09/16 Sly Cade MD [address] [address] Referring Physician Cardiology 12/07/18 documented as of this encounter
--- OUTSIDE RECORDS SUMMARY | 2024-03-18 05:02 | XMS_ITS | Encounter Summary ---
Author Organization [facility] Address [address] [place] [address] Phone Care Team Providers Care Remote Encoding Operations Supervisor Name Role Phone Newton Mendiola MD Primary Care Provider [phone] Sly Cade MD Unavailable [phone] Encounter Details Date Type Department Care Team (Late st Contact Info) Description 03/15/2020 Telephone [facility] Cardiology [address] [facility] [address] [place] [address] Matt Remy MD [address] [facility] [address] [place] [address] Social History Tobacco Use Types Packs/Day Years Used Date Smoking Tobacco: Former Cigarettes Smokeless Tobacco: Never Alcohol Use Standard Drinks/Week Comments No 0 (1 standard drink = 0.6 oz pur e alcohol) Comments Unknown Sex and Gender Information Value Date Recorded Sex Assigned at Not on file Legal Sex Female 7:55 AM TANNING SALON ATTENDANT Gender Identity Not on file Sexual Orientation Not on file documented as of this encounter Miscellaneous Notes * Telephone Encounter - Odalis Monroe RN - 03/15/2020 10:07 AM CST ----- Message from Matt Remy MD sent at 03/04/2020 8:58 PM TANNING SALON ATTENDANT ----- Please let patient know no major change from her prior echo; no clear structural cardial etiology for her symptoms. Will discuss further next clinic visit. Called pt with results ING SALON ATTENDANT ING SALON ATTENDANT documented in this encounter Plan of Treatment Scheduled Procedures Name Priority Associated Diagnoses Date/Ti me ESOPHAGOGASTRODUODENOSCOPY Nausea Colon cancer screening COLONOSCOPY Nausea Colon cancer screening documented as of this encounter Visit Diagnoses Not on filedocumented in this encounter Care Teams Remote Encoding Operations Supervisor Relationship Specialty Start Date End Date Newton Mendiola MD [address] [employer] [address] [address] PCP - General 06/09/16 Sly Cade MD [address] [employer] [address] [address] Referring Physician Cardiology 12/07/18 documented as of this encounter
--- OUTSIDE RECORDS SUMMARY | 2024-03-18 05:02 | XMS_ITS | Encounter Summary ---
Author Organization [facility] Address [address] [place] [address] Phone Care Team Providers Care Jewelry Polisher Name Role Phone Newton Mendiola MD Primary Care Provider [phone] Reason for Visit * Sleep Medicine (Routine) - Closed Specialty Diagnoses / Procedures Referred By Nino fletcher Referred To Contact Neurology Diagnoses Snoring Procedures PSG-Sleep Provider Use Only Isauro Newman MD Phone: tel: fax: [facility] [address] [place] [address] Phone: tel: fax: Referral ID Status Reason Start Date Expiration Date Visits Re quested Visits Authorized [id number] Closed 10/28/2018 05/08/2020 1 1 Encounter Details Date Type Department Care Team (Latest Contact Info) Description 12/06/2018 7:30 PM CDT Procedure visit [facility] [address] [place] [address] Sleep disorder (Primary Dx); Snoring Social History Tobacco Use Types Packs/Day Years Used Date Smoking Tobacco: Former Smokeless Tobacco: Never Alcohol Use Standard Drinks/Week Comments No 0 (1 standard drink = 0.6 oz pur e alcohol) Comments Unknown Sex and Gender Information Value Date Recorded Sex Assigned at Not on file Legal Sex Female 7:55 AM DENTAL HYGIENE ADMINISTRATIVE ASSISTANT Gender Identity Not on file Sexual Orientation Not on file documented as of this encounter Last Filed Vital Signs Vital Sign Reading Time Taken Comments Blood Pressure 141/79 12/06/2018 7:48 PM CDT Pulse 104 12/06/2018 7:48 PM CDT Temperature - - Respiratory Rate - - Oxygen Saturation 97% 12/06/2018 7:48 PM CDT Inhaled Oxygen Concentration - - Weight 91.4 kg (201 lb 8 oz) 12/06/2018 7:48 PM CDT Height 162.6 cm (5' 4 ) 12/06/2018 7:48 PM CDT Body Mass Index 34.59 12/06/2018 7:48 PM CDT documented in this encounter Progress Notes * Isauro Newman MD - 12/06/2018 7:30 PM CDTAssociated Order(s): PSG-Sleep Provider Use Only Post-Procedure Diagnose(s): Snoring PSG-Sleep Provider Use Only Date/Time: 12/06/2018 10:00 PM Performed by: Isauro Newman MD Authorized by: Isauro Newman MD Date of study: 12/06/2018 All Night Diagnostic Polysomnogram (PSG) Report Clinical History: Katy Sauceda is a 53 yo F with a h/o Lymphoma s/p radiation and chemo in 1992, chronic insomnia, LBBB, ??hypertension, and NICM, CHF (recovered LVEF from 29% to 50% 02/2018), ??who presents with a several-year history of snoring and gasping for breath. ?? A home sleep study on 10/10/2016 (Weight 189 lbs) did not show significant COLT: AHI 4.3/hour, SpO2 andre 80%, SpO2 <=88%: 2.8 min. ?? She gained 10 pounds since 2017. She is tired but not ??sleepy during the day ??and does not nap. ??ESS 04/08. Height: 64.0 in; Weight: 201.5 lb; BMI: 34.6 kg/m2; neck circumference: 14.3 in Study Findings: Unless otherwise noted, respiratory events were scored in accordance with recommended parameters as outlined in the AASM Manual for the Scoring of Sleep and Associated Events, Version2.5. Hypopneas were scored in accordance with acceptable parameters as outlined in Chapter VIII, Part 1: Rules for Adults, Category D, Section 1B. Desaturation threshold settin% Minimum desaturation settin seconds. Sleep architecture: Total recording time: 453.0 minutes, sleep latency: 0h 21.0m, REM latency 2h 43.0m, total sleep time (TST): 6h 24.0m, total supine sleep time: 212.5, total REM sleep time: 29.5, supine REM sleep time: 29.5, sleep efficiency: 84.8%. Respiratory Data: AHI: 3.6/hr of sleep; REM AHI: 34.6/hr; NREM AHI: 1.02/hr; supine AHI: 5.9/hr; lateral AHI: 0.7/hr.RERA index: 0.3/hour. RDI: 3.9/hr sleep; REM RDI: 38.6/hr; NREM RDI: 1.0/hr; supine RDI: 6.5/hr; lateral RDI: 0.70/hr. Lowest oxygen saturation: 85%. Time spent with SpO2 <89% 1.0 minutes. Frequent snoring was noted only in supine sleep. Other: The periodic limb movement (PLM) index was 3.1/hour. ECG revealed sinus rhythm (rate 65-86/min in sleep) with wide QRS complex (h/o LBBB). No parasomnia observed. Accredited Scorer: [employer]. Raw PSG data were reviewed and edited by Dr. Isauro Newman. Interpretation: The patient did not meet diagnostic criteria of obstructive sleep apnea based upon an apnea/hypopnea index (AHI) of 3.6/hour total sleep time. There were1 central apnea, 22 hypopneas and 2 RERAs. These respiratory events primarily occurred in supine REM sleep. The lowest SpO2 was 85%. Time spent SpO2 < 89%: 1.0 minutes. Frequent snoring was noted only in supine sleep. Total sleep time (TST) was 6h 24.0m, total supine sleep time was 212.5 min, total REM sleep time was 29.5 min, consisted of 6.9% of TST (less than expected). Diagnosis: Sleep disorder, unspecified - G47.9 Snoring - R06.83 Recommendations: The patient did not have evidence of significant obstructive sleep apnea on this study. The resultsand treatment options for snoring including weight loss and lateral positional therapy will be discussed with the patient. ---- Isauro Newman MD, MSCE, FACP Solvent Station Attendant of Neurology ABI Board Certified in Sleep Medicine [facility] documented in this encounter Plan of Treatment Scheduled Procedures Name Priority Associated Diagnoses Date/Ti me ESOPHAGOGASTRODUODENOSCOPY Nausea Colon cancer screening COLONOSCOPY Nausea Colon cancer screening documented as of this encounter Procedures Procedure Name Priority Date/Time Associated Diagnosis Comments PSG (COMPLEX) Routine 12/06/2018 7:30 PM CDT Snoring documented in this encounter Results * PSG (COMPLEX) (12/06/2018 7:30 PM CDT) Narrative Isauro Newman MD - 12/06/2018 7:30 PM CDT Isauro Newman MD ? 12/07/2018 ??7:32 AM PSG-Sleep Provider Use Only Date/Time: 12/06/2018 10:00 PM Performed by: Isauro Newman MD Authorized by: Isauro Newman MD Isauro Newman MD SLEEP CENTER ORDERABLES Final Re sult documented in this encounter Visit Diagnoses Diagnosis Sleep disorder- Primary Unspecified sleep disturbance Snoring Other dyspnea and respiratory abnormality documented in this encounter Care Teams Jewelry Polisher Relationship Specialty Start Date End Date Newton Mendiola MD [address] [id number] [place] [address] PCP - General 06/09/16 documented as of this encounter
--- OUTSIDE RECORDS SUMMARY | 2024-03-18 05:02 | XMS_ITS | Encounter Summary ---
Author Organization [facility] Address [address] [facility] [address] [place] [id number] Care Team Providers Care State Game Warden Name Role Phone Newton Mendiola MD Primary Care Provider Sly Cade MD Unavailable [phone] Reason for Visit * Reason Comments COVID-19 EVALUATION Sinus headache with nausea, sore throat, body aches and fatigue Encounter Details Date Type Department Care Team (Late st Contact Info) Description 11/28/2019 4:00 PM CDT Office Visit [facility] [address] [place] [address] Roxanne Berg NP [address] [place] [address] Acute non-recurrent maxillary sinusitis (Primary Dx) Social History Tobacco Use Types Packs/Day Years Used Date Smoking Tobacco: Former Cigarettes Smokeless Tobacco: Never Alcohol Use Standard Drinks/Week Comments No 0 (1 standard drink = 0.6 oz pur e alcohol) Comments Unknown Sex and Gender Information Value Date Recorded Sex Assigned at Not on file 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 Gender Identity Not on file Sexual Orientation Not on file documented as of this encounter Last Filed Vital Signs Vital Sign Reading Time Taken Comments Blood Pressure 122/80 11/28/2019 4:01 PM CDT Pulse 107 11/28/2019 4:02 PM CDT right Temperature 36.3 ??C (97.3 ??F) 11/28/2019 4:01 PM CD T Respiratory Rate 18 11/28/2019 4:01 PM CDT Oxygen Saturation 96% 11/28/2019 4:02 PM CDT right Inhaled Oxygen Concentration - - Weight 90.7 kg (200 lb) 11/28/2019 4:01 PM CDT Height 162.6 cm (5' 4 ) 11/28/2019 4:01 PM CDT Body Mass Index 34.33 11/28/2019 4:01 PM CDT documented in this encounter Patient Instructions * Patient Instructions* Roxanne Berg NP - 11/28/2019 4:00 PM CDT Research has proven that unless you are running a fever or symptoms start to improve then get worseagain, sinus infections are typically viral until days 9-10. Finish the entire antibiotic prescription. Take this with food and a glass of water. Eat yogurt or take probiotic daily while on antibiotics. Symptomatic treatments include: ??? Over the counter antihistamine such as loratadine (Claritin) or cetirizine (Zyrtec) to reduce secretions. The D formula includes pseudoephedrine and can be helpful as a decongestant but SHOULD NOT BE USED IF YOU HAVE A HISTORY OF HIGH BLOOD PRESSURE. ??? Coricidin HBP may be taken for congestion if you have a history of high blood pressure. ??? Topical decongestants are another option such as Afrin. Do not use for more than 3 days as it can cause rebound congestion worse than original congestion. ??? Tessalon, Dextromethorphan (Robitussin) or Delsym for cough ??? Guafenesin (Mucinex) to thin secretions ??? Acetaminophen (Tylenol), ibuprofen (Motrin, Advil), or Aleve (naproxen) for pain or fever. ??? The use of hypertonic saline to irrigate nasal passageways can be helpful. Over the counter systems include Neti Pot and Nasopure. Use with distilled water. ??? Salt water gargles and throat lozenges can be helpful for sore throat. ??? To prevent spreading the illness to others cover your sneeze and cough into your arm and not your hand, don't allow others to eat or drink with the same utensils or glass, and use hand case monitor before touching people or common surfaces. ??? Apply warm packs to face to facilitate sinus drainage. ??? Use cool mist humidifier in bedroom at night. ??? Increase fluid consumption and rest. Follow up with your PCP in 1 week or sooner if symptoms worsen or are not improving as planned. If you experience any shortness of breath, chest pain, or high fever >101, go to the Emergency Room. Although you have not been diagnosed with COVID-19, your presenting symptoms could be indicative ofCOVID infection and it is recommended that you stay home for recovery at this time. When will my results be available? - There is not a rapid test available at this time. It typically takes 1-3 days to get the results of this test. If you have MyChart, the results will be available to you at the same time as we receive them. Regardless, we will call every patient with positive or negative results. The [facility] Department will be reaching out to all patients who have a positive test for further discussion and monitoring. If your test results are negative continue to self isolate until at least 10 days have passed since symptom onset, your symptoms have improved, and you have been fever free without the useof fever reducing medications for at least 24 hours. You may use acetaminophen and/or ibuprofen to control pain and fever. If you have chronic liver disease, have ever had a stomach ulcer or gastrointestinal bleeding talk with your healthcare provider before using these medicines. Aspirin should never be given to anyone under 18 years of age who is ill with a viral infection or fever. It may cause severe liver or brain damage. Your appetite may be poor, so a light diet is ok. Stay well hydrated by drinking 6 to 8 glasses of fluids per day (water, soft drinks, juices, tea, or soup). Extra fluids will help loosen secretions in the nose and lungs. Sscq-gaj-uvwwpnm cold medicines will not shorten the length of time you???re sick, but they may be helpful for relieving the following symptoms: headache, cough, sore throat, and nasal and sinus congestion. If you take prescription medicines, ask your healthcare provider or pharmacist which qytz-viq-olmlbnf medicines are safe to use. (Note: DO NOT use decongestants if you have high blood pressure.) Steps to help prevent the spread of COVID-19 if you are sick If you are sick with COVID-19 or think you might have COVID-19, follow the steps below to care for yourself and to help protect other people in your home and community. Stay home except to get medical care ??? Most people with COVID-19 have mild illness and are able to recover at home without medical care. Do not leave your home, except to get medical care. Do not visit public areas. ??? Take care of yourself. Get rest and stay hydrated. Take benk-oih-wktiyvo medicines to help you feel better. ??? Stay in touch with your doctor. Call before you get medical care. Be sure to get care if you have trouble breathing, or have any other emergency warning signs, or if you think it is an emergency. ??? Avoid using public transportation, ride-sharing, or taxis. Monitor your symptoms ??? Symptoms of COVID-19 include fever, cough, shortness of breath or difficulty breathing, fatigue, muscle or body aches, headache, new loss of taste or smell, sore throat, congestion, runny nose, nausea, vomiting, or diarrhea. When to Seek Medical Attention If you develop emergency warning signs for COVID-19 get medical attention immediately. Emergency warning signs include*: ??? Trouble breathing ??? Persistent pain or pressure in the chest ??? New confusion or inability to arouse ??? Bluish lips or face *This list is not all inclusive. Please consult your medical provider for any other symptoms that are severe or concerning. Call 911 if you have a medical emergency: If you have a medical emergency and need to call 911, notify the gas shovel operator that you have or think you might have, COVID-19. If possible, put on a facemask before medical help arrives. Separate yourself from other people in your home, this is known as home isolation ??? As much as possible, you should stay away from other people and pets in your home. You should stay in a specific ???sick room?? if possible. Use a separate bathroom, if available. If you need nida around other people or animals in or outside of the home, wear a mask For more information on sharing close living quarters with someone who is sick visit https://www.cdc .gov/coronavirus/2019-ncov/rfknc-shua-xlhlmp/xswdlf-by-juoqg-quarters.html For more information on COVID-19 and pets visit https://www.cdc.gov/coronavirus/2019-ncov/faq.html Call ahead before visiting your doctor ??? Many medical visits for routine care are being postponed or done by phone or telemedicine. ??? If you have a medical appointment that cannot be postponed, call your doctor???s office, and tell them you have or may have COVID-19. This will help the office protect themselves and other patients. If you are sick wear a face mask over your nose and mouth in the following situations ??? You should wear a face mask over your nose and mouth if you must be around other people or animals, including pets (even at home). ??? You don't need to wear the face mask if you are alone. If you can't put on a face mask (becauseof trouble breathing, for example), cover your coughs and sneezes in some other way (tissue or inner elbow). Try to stay at least 6 feet away from other people. This will help protect the people around you. ??? Face masks should not be placed on children under 2 years old, anyone who has trouble breathing, or anyone who is not able to remove the covering without help. Note: During the COVID-19 pandemic, medical grade facemasks are reserved for healthcare workers andsome first responders. You may need to use a cloth face covering. Cover your coughs and sneezes ??? Cover your mouth and nose with a tissue or the inside of your elbow when you cough or sneeze. ??? Throw used tissues in a lined trash can. ??? Immediately wash your hands with soap and water for at least 20 seconds. If soap and water are not available, clean your hands with an alcohol-based hand case monitor that contains at least 60% alcohol. Clean your hands often ??? Wash your hands often with soap and water for at least 20 seconds. This is especially importantafter blowing your nose, coughing, or sneezing; going to the bathroom; and before eating or preparing food. ??? Use hand case monitor if soap and water are not available. Use an alcohol-based hand case monitor with at least 60% alcohol, covering all surfaces of your hands and rubbing them together until they feel dry. ??? Soap and water are the best option, especially if hands are visibly dirty. ??? Avoid touching your eyes, nose, and mouth especially with unwashed hands. Avoid sharing personal household items ??? Do not share dishes, drinking glasses, cups, eating utensils, towels, or bedding with other people in your home. ??? After using these items, wash them thoroughly with soap and water or put them in the retail sales associate bilingual. Clean all ???high-touch?? surfaces everyday. High-touch surfaces include phones, remote controls, counters, tabletops, doorknobs, bathroom fixtures, toilets, keyboards, tablets, and bedside tables. ??? Clean and disinfect high-touch surfaces in your ???sick room?? and bathroom everyday while wearing disposable gloves. Let someone else clean and disinfect surfaces in common areas, but not your bedroom and bathroom. ??? If a caregiver or other person needs to clean and disinfect a sick person???s bedroom or bathroom, they should do so on an as-needed basis. The caregiver/other person should wear a mask and disposable gloves prior to cleaning.They should wait as long as possible after the sick person has used the bathroom before coming in to clean and use the bathroom. ??? Clean and disinfect areas that may have blood, stool, or body fluids on them. ??? Clean the area or item with soap and water or another detergent if it is dirty. Then, use a household disinfectant. o Be sure to follow the instructions on the label to ensure safe and effective use of the product. Many products recommend keeping the surface wet for several minutes to ensure germs are killed. Manyalso recommend precautions such as wearing gloves and making sure you have good ventilation during use of the product. o Most EPA-registered household disinfectants should be effective. When you can be around others (end home isolation) depends on different factors for different situations. If you think or know you have COVID-19, and you had symptoms you can be with others after ??? 24 hours with no fever (without the use of fever reducing medications) AND ??? Respiratory symptoms have improved (cough, shortness of breath) AND ??? 10 days since symptoms first appeared. ??? Loss of taste and smell may persist for weeks or months after recovery and need not delay the end of isolation If you tested positive for COVID-19 but had no symptoms you can be with others after ??? 10 days have passed since the test. ??? If you develop symptoms after testing positive, follow the guidance above for I think or I know I had COVID, and I had symptoms . If you have a weakened immune system due to a health condition or medication you can be around others ??? People with conditions that weaken their immune system might need to stay home longer than 10 days. Talk to your healthcare provider for more information. If you have been around a person with COVID-19 ??? You should stay home for 14 days after exposure based on the time it takes to develop illness/symptoms. ??? If you live with someone positive for COVID-19, and you are unable to avoid close contact, you should quarantine for 14 days AFTER the person who has COVID- 19 meets the criteria to end home isolation. However, anyone who has had close contact with someone with COVID-19 and who: ??? developed COVID-19 illness within the previous 3 months AND ??? has recovered AND ??? remains without COVID-19 symptoms (for example, cough, shortness of breath) does not need to stay home. In all cases, follow the guidance of your healthcare provider and local health department regardingquarantine guidelines. The decision to stop home isolation should be made in consultation with yourhealthcare provider and state and local health departments. Local decisions depend on local circumstances. The above information is from the CDC website on November 21, 2019. Page last reviewed: October 30, 2019. Additional information and resources about COVID-19 symptoms, testing, self- isolation, how to prevent spread, and more are available at: https://www.cdc.gov/coronavirus documented in this encounter Ordered Prescriptions Prescription Sig Dispense Quantity Refills Last Filled Start Date End Date doxycycline (ADOXA) 100 mg tabletIndications: Acute non-recurrent maxillary sinusitis Take 1 tablet (100 mg total) by mouth 2 (two) times a day for 7 days 14 tablet 11/28/2019 12/05/2019 documented in this encounter Progress Notes * Roxanne Berg, BRIT - 11/28/2019 4:00 PM CDT Images from the original note were not included. Patient ID: Katy Sauceda is a 54 y.o. female followed by Newton Mendiola MD Patient was wearing the following PPE: mask. MA was wearing the following PPE: mask, gown, gloves and face shield. Provider was wearing the following PPE: mask, gown, gloves and face shield. Chief Complaint Patient presents with ??? COVID-19 EVALUATION Sinus headache with nausea, sore throat, body aches and fatigue Presents to clinic with complaints of sinus congestion, frontal headaches, post nasal drip, sore throat, swollen neck glands, bilateral earache, fatigue, body aches, loss of appetite, nausea, and diarrhea. Patient states her symptoms started two weeks ago and have gradually worsened. Denies fever, chills, vomiting, shortness of breath, cough, loss of smell or taste. Reports taking Claritin, a sinus decongestant, and aspirin with mild symptom relief. Patient presents to clinic for assessment of Chief Complaint Patient presents with ??? COVID-19 EVALUATION Sinus headache with nausea, sore throat, body aches and fatigue . Patient reports SORE THROAT, NASAL CONGESTION, NASAL DRAINAGE, SINUS PRESSURE, EAR PAIN, NAUSEA, DIARRHEA, HEADACHE and BODY ACHES Patient reports this has been going on for 2 weeks. Patient with sick or suspected COVID-19 contacts: No Patient has following risks for COVID-19: Patient has congestive heart failure Review of Systems Constitutional: Positive for appetite change and fatigue. Negative for chills, diaphoresis and fever. HENT: Positive for congestion, ear pain (bilateral), postnasal drip, sinus pressure, sinus pain andsore throat. Negative for rhinorrhea and trouble swallowing. Respiratory: Negative for cough and shortness of breath. Gastrointestinal: Positive for diarrhea. Negative for abdominal pain, nausea and vomiting. Musculoskeletal: Positive for myalgias. Neurological: Positive for headaches. Current Outpatient Medications Medication Sig Dispense Refill ??? aspirin 81 mg tablet daily. ??? buPROPion XL (WELLBUTRIN XL) 300 mg 24 hr tablet Take 300 mg by mouth daily. 3 ??? escitalopram (LEXAPRO) 5 mg tablet Take 5 mg by mouth daily. 1 ??? fluticasone (CHILDREN'S FLONASE ALLERGY RLF) 50 mcg/actuation nasal spray daily. ??? isosorbide mononitrate ER (IMDUR) 30 mg 24 hr tablet TAKE 1 TABLET BY MOUTH EVERY DAY 30 tablet5 ??? losartan (COZAAR) 50 mg tablet TAKE 1 TABLET BY MOUTH EVERY DAY 90 tablet 3 ??? metoprolol XL (TOPROL-XL) 50 mg extended release tablet TAKE 1 TABLET BY MOUTH EVERY DAY 90 tablet 3 ??? pantoprazole DR (PROTONIX) 40 mg EC tablet Take 40 mg by mouth daily. 2 ??? rizatriptan (MAXALT) 10 mg tablet TAKE 1 TABLET AT ONSET OF HEADACHE. MAY REPEAT EVERY 2 HOURS NEEDED. MAXIMUM 3 TABLETS IN 24 HOURS. ??? azithromycin (ZITHROMAX) 250 mg tablet ??? diclofenac DR (VOLTAREN) 50 mg EC tablet Take 50 mg by mouth 2 (two) times a day 0 ??? doxycycline (ADOXA) 100 mg tablet Take 1 tablet (100 mg total) by mouth 2 (two) times a day for7 days 14 tablet 0 ??? omeprazole (PriLOSEC) 20 mg capsule Take 20 mg by mouth daily. Current Facility-Administered Medications Medication Dose Route Frequency Provider Last Rate Last Dose ??? DOBUTamine in dextrose 5% (DOBUTREX) 250 mg/250 mL (1000 mcg/mL) infusion (premix) 40 mcg/kg/min intravenous Continuous Sly Cade MD 217.7 mL/hr at 03/12/18 1212 40 mcg/kg/min at 03/12/18 1212 Past Medical History: Diagnosis Date ??? CHF (congestive heart failure) (CMS/HCC) ??? Hypertension There is no immunization history on file for this patient. Social History Tobacco Use Smoking Status Former Smoker ??? Packs/day: 0.50 ??? Types: Cigarettes Smokeless Tobacco Never Used Vitals: 11/28/19 1601 11/28/19 1602 BP: 122/80 BP Location: Left arm Patient Position: Sitting Pulse: 109 107 Resp: 18 Temp: 36.3 ??C (97.3 ??F) TempSrc: Temporal SpO2: 97% 96% Weight: 90.7 kg (200 lb) Height: 162.6 cm (5' 4 ) Physical Exam Constitutional: General: She is not in acute distress. Appearance: Normal appearance. She is well-developed and well-groomed. She is not ill-appearing. HENT: Right Ear: Tympanic membrane, ear canal and external ear normal. Left Ear: Tympanic membrane, ear canal and external ear normal. Nose: Right Sinus: Maxillary sinus tenderness present. No frontal sinus tenderness. Left Sinus: Maxillary sinus tenderness present. No frontal sinus tenderness. Mouth/Throat: Pharynx: Oropharynx is clear. Cardiovascular: Rate and Rhythm: Regular rhythm. Tachycardia present. Heart sounds: Normal heart sounds. Pulmonary: Effort: Pulmonary effort is normal. Breath sounds: Normal breath sounds and air entry. Lymphadenopathy: Head: Right side of head: Submandibular adenopathy present. No submental or tonsillar adenopathy. Left side of head: Submandibular adenopathy present. No submental or tonsillar adenopathy. Cervical: No cervical adenopathy. Skin: General: Skin is warm and dry. Neurological: General: No focal deficit present. Mental Status: She is alert and oriented to person, place, and time. GCS: GCS eye subscore is 4. GCS verbal subscore is 5. GCS motor subscore is 6. Psychiatric: Attention and Perception: Attention normal. Mood and Affect: Mood normal. Speech: Speech normal. Behavior: Behavior normal. Behavior is cooperative. Results for orders placed or performed in visit on 11/28/19 POCT rapid strep A Result Value Ref Range Rapid Strep A, POC Negative Assessment/Plan Clinical presentation consistent with acute bacterial sinusitis. Will treat with antibiotics. Verbal and written instructions on home care given to patient. Discussed return/follow-up precautions including s/s warranting immediate emergency department evaluation. Swabbed for COVID-19 today in clinic. Patient aware they will be called with the results in 1-3 days. Patient instructed to self isolate until called with results and they will be notified at that timeif they need to continue self isolation and for how long. Discussed home self care, follow up needs and signs and symptoms that warrant immediate medical attention. Diagnoses and all orders for this visit: Acute non-recurrent maxillary sinusitis (Primary) - COVID-19 Coronavirus RNA Nasopharyngeal; Future - POCT rapid strep A - doxycycline (ADOXA) 100 mg tablet; Take 1 tablet (100 mg total) by mouth 2 (two) times a day for 7 days Discussed COVID testing reasoning Reviewed isolation/quarantine protocols Discussed symptomatic relief of symptoms Discussed need to return to ER for further evaluation including worsening fevers, shortness of breath, of other concerning symptoms Advised to rest and stay adequately hydrated Orders Placed This Encounter Procedures ??? COVID-19 Coronavirus RNA Nasopharyngeal Standing Status: Future Standing Expiration Date: 11/27/2020 Order Specific Question: Is the patient experiencing any symptoms consistent with COVID (eg. Fever,cough, shortness of breath)? Answer: Yes Order Specific Question: What is the reason for testing? Answer: Symptoms compatible with COVID-19 in high-risk group (defined above in process inst.) ??? POCT rapid strep A Roxanne Berg NP documented in this encounter Plan of Treatment Scheduled Procedures Name Priority Associated Diagnoses Date/Ti me ESOPHAGOGASTRODUODENOSCOPY Nausea Colon cancer screening COLONOSCOPY Nausea Colon cancer screening documented as of this encounter Procedures Procedure Name Priority Date/Time Associated Diagnosis Comments POCT RAPID STREP Routine 11/28/2019 4:19 PM CDT Acute non-recurrent maxillary sinusitis documented in this encounter Results * POCT rapid strep A (11/28/2019 4:19 PM CDT) [facility] Rapid Strep A, POC Negative Swab 11/28/2019 4:19 PM CDT Roxanne Berg NP POINT OF CARE TEST OR DERABLES Final Result * COVID-19 Coronavirus RNA Nasopharyngeal (11/28/2019 4:03 PM CDT) [facility] COVID-19 RNA Not Detected KEKE ACOSTA Comment: Interpretive Data Testing performed at [facility]. The 2019-Novel Coronavirus Assay (COVID-19) Real Time RT-PCR assay is for in vitro diagnostic use under FDA emergency use authorization only. A negative RT-PCR result does not preclude infection with COVID-19 and should not be used as the sole basis for treatment or other patient management decisions. Additional sample types have been validated according to CLIA regulations. ?? Current Interpretive Data was last revised on 2019. Testing performed by: [facility], [address] [place]., [address] Nasopharyngeal 11/28/2019 4: 03 PM CDT 11/29/2019 4:15 AM CDT Narrative KEKE - 11/29/2019 9:54 PM CDT Is the patient experiencing any symptoms consistent with COVID (eg. Fever, cough, shortness of breath)?->Yes What is the reason for testing?->Symptoms compatible with COVID-19 in high-risk group (defined above in process inst.) Roxanne Berg OPERATING ROOM RN LAB MICROBIOLOGY - [facility] ORDERABLES Final Result KEKE [id number] Department [place] [address] documented in this encounter Visit Diagnoses Diagnosis Acute non-recurrent maxillary sinusitis- Primary Acute non-recurrent maxillary sinusitis documented in this encounter Additional Health Concerns Infection Onset Date Last Indicated Resolved Time COVID: Suspected 11/28/2019 11/28/2019 11/29/2019 9:55 PM CDT documented as of this encounter Care Teams State Game Warden Relationship Specialty Start Date End Date Newton Mendiola MD [address] [address] PCP - General 06/09/16 Sly Cade MD [address] [address] Referring Physician Cardiology 12/07/18 documented as of this encounter
--- OUTSIDE RECORDS SUMMARY | 2024-03-18 05:02 | XMS_ITS | Encounter Summary ---
Author Organization [facility] Address [address] [place] [address] Phone Care Team Providers Care Power Hair Clipper Name Role Phone Newton Mendiola MD Primary Care Provider [phone] Sly Cade MD Unavailable [phone] Encounter Details Date Type Department Care Team (Late st Contact Info) Description 05/21/2020 Telephone [facility] Cardiology [facility] Medical Office Building [address] [place] [id number] Maryann Benavidez RN Social History Tobacco Use Types Packs/Day Years Used Date Smoking Tobacco: Former Cigarettes Smokeless Tobacco: Never Alcohol Use Standard Drinks/Week Comments No 0 (1 standard drink = 0.6 oz pur e alcohol) Comments No Sex and Gender Information Value Date Recorded Sex Assigned at Not on file 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 Gender Identity Not on file Sexual Orientation Not on file documented as of this encounter Miscellaneous Notes * Telephone Encounter - Maryann Benavidez RN - 06/27/2020 3:34 PM CDT error documented in this encounter Plan of Treatment Scheduled Procedures Name Priority Associated Diagnoses Date/Ti me ESOPHAGOGASTRODUODENOSCOPY Nausea Colon cancer screening COLONOSCOPY Nausea Colon cancer screening documented as of this encounter Visit Diagnoses Not on filedocumented in this encounter Care Teams Power Hair Clipper Relationship Specialty Start Date End Date Newton Mendiola MD [address] [address] PCP - General 06/09/16 Sly Cade MD [address] [address] Referring Physician Cardiology 12/07/18 documented as of this encounter
--- OUTSIDE RECORDS SUMMARY | 2024-03-18 05:02 | XMS_ITS | Encounter Summary ---
Author Organization [facility] Address [address] [place] [address] Phone Care Team Providers Care Proof Technician Name Role Phone Newton Mendiola MD Primary Care Provider [phone] Sly Cade MD Unavailable [phone] Encounter Details Date Type Department Care Team (Late st Contact Info) Description 05/28/2020 11:30 AM CDT Office Visit [facility] Cardiology [address] [place] [address] Medical Office Building [address] [place] [address] Matt Remy MD [address] [place] [address] [address] [place] [address] Palpitations (Primary Dx); LV dysfunction; NICM (nonischemic cardiomyopathy) (CMS/HCC) Social History Tobacco Use Types Packs/Day Years Used Date Smoking Tobacco: Former Cigarettes Smokeless Tobacco: Never Alcohol Use Standard Drinks/Week Comments No 0 (1 standard drink = 0.6 oz pur e alcohol) Comments No Sex and Gender Information Value Date Recorded Sex Assigned at Not on file 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 Gender Identity Not on file Sexual Orientation Not on file documented as of this encounter Last Filed Vital Signs Vital Sign Reading Time Taken Comments Blood Pressure 154/93 05/28/2020 11:39 AM CDT Pulse 96 05/28/2020 11:39 AM CDT Temperature 36.1 ??C (97 ??F) 05/28/2020 11:39 AM CDT Respiratory Rate - - Oxygen Saturation 98% 05/28/2020 11:39 AM CDT Inhaled Oxygen Concentration - - Weight 89.4 kg (197 lb 1.9 oz) 05/28/2020 11:39 AM CDT Height 162.6 cm (5' 4 ) 05/28/2020 11:39 AM CDT Body Mass Index 33.84 05/28/2020 11:39 AM CDT documented in this encounter Patient Instructions * Patient Instructions* Matt Remy MD - 05/28/2020 11:30 AM CDT We will increase your metoprolol from 50 mg to 100 mg For the next 1-2 weeks, please check your heart rate and blood pressure once in the evening. Write down this information and also note if you feel better, worse, or about the same. Then, please either send me a XL Video message with his information or call our office to give us an update. The best way to take your blood pressure is in the evening when you are rested and in a quiet place. Your feet should be flat on the ground and your back supported in a chair. Check it three times, throw out the first and average the second two. documented in this encounter Ordered Prescriptions Prescription Sig Dispense Quantity Refills Last Filled Start Date End Date metoprolol XL (TOPROL-XL) 100 mg 24 hr tablet Take 1 tablet (100 mg total) by mouth daily 90 tablet 3 05/28/2020 2 metoprolol XL (TOPROL-XL) 100 mg 24 hr tablet Take 0.5 tablets (50 mg total) by mouth daily 45 tablet 3 05/28/2020 1 documented in this encounter Progress Notes * Matt Remy MD - 05/28/2020 11:30 AM CDT Images from the original note were not included. Cardiology Return Clinic Visit Visit Date: 05/28/20 Patient Diagnosis List 1. NICM a. Informed of LBBB during pre-op EKG years ago , then D[facility] with [facility]ICM [facility] demonstrating no angiographically significant CAD b. TTE 12/29/18 = LVEDD 4.3 cm with LVEF 41% & global hypokinesis c. CMR 02/01 = LVEF 44%, no delayed contrast enhancement to suggest infiltrative cardiomyopathy 2. Non-cardiac a. History of Hodgkins (around 1992) treated with chest XRT Dear Newton Mendiola MD We had the pleasure of seeing Katy Sauceda at [facility] in [place]. As you recall, she is a pleasant 55 y.o. female that we follow for non-ischemic cardiomyopathy. Since our last visit in in February, she has mostly been doing well from cardiovascular perspective. However, she developed acute onset palpitations and chest pain while sitting in her car on Saturday 05/20. She was admitted to [facility] 05/20 to 05/21 and underwent a SPECT which demonstrated mild to moderate LV dysfunction (LVEF 40%) and abnormal perfusion imaging which is either due to her left bundle branch block or ischemia. She was then discharged with plan for outpatient follow-up. Currently, she mostly feels well and states that she continues to have these intermittent episodes of palpitations. She was able to capture this episode on her cardia device. Otherwise, she is not endorse any angina, chest tightness, orthopnea, lower extremity swelling, presyncope, or syncope. She does not have a blood pressure cuff at home to check her home blood pressures. ROS: As her HPI, otherwise 12 point review of systems reviewed and negative Objective CV Medications Aspirin 81 mg Imdur 30 mg Losartan 50 mg Metoprolol XL 50 mg Vitals & Physical Exam HR: 96 BP: 154/93 Weight: 197 lbs GEN: pleasant female in NAD; alert, comfortable, thought content appropriate HENT: NCAT, MMM, anicteric, no conjunctival pallor CVS: RRR, S1S2, no rubs/murmurs/gallops, no JVP appreciated, no edema PULM: non-labored, good inspiratory effort ABD: soft, NTND, obese EXT: equal radial pulses, no malformations Neuro: no abnormal movements, nonfocal exam Skin: warm, dry Cardiac Studies EKG 12/29/18 = NSR 83, normal axis, left bundle branch block, Lipids 06/2018 = TC 159, HDL 31, LDL 99, TG 145 TTE 03/02/20 = LVEDD 5.1 cm, LVEF 46% with dyschronous septum, imparied relaxation, no significant valvular abnormalitites & no major change from 2019 Kardea capture during palpitations 05/20/20 Assessment Recommendations #Non-Ischemic Cardiomyopathy + HFmrEF Patient well compensated and euvolemic on exam with NYHA II symptoms. Her recent echocardiogram andSPECT both continue demonstrate a mildly reduced ejection fraction. 1 Will plan on continuing guideline directed medical therapy as above and discuss starting spironolactone pending her home blood pressure checks (will buy a blood pressure monitor this week) 2 pending above, she may benefit from a CPET to obtain a better evaluation of her limitations. #Hypertension Patient will plan on getting a blood pressure cuff this week and will start checking blood pressures in the evenings so we can better titrate her medications #Palpitations Patient has had multiple rhythm monitors in the past and not demonstrate any known arrhythmias; however, her Kardia capture above appears to demonstrate 2 to 1 atrial tachycardia. We will review the strips with EP and will increase her metoprolol XL 50 mg 100 mg daily to assess for symptom response. Thank you for the opportunity to participate in the care of this wonderful patient. We will plan onseeing them back in 6 months time. Please do not hesitate to contact us with any questions or concerns that may arise in the interim. Matt Remy MD on 05/28/2020 at 11:31 AM Drug Discovery Informatics Specialistoffice mail clerk (Cardiology) documented in this encounter Plan of Treatment Scheduled Procedures Name Priority Associated Diagnoses Date/Ti me ESOPHAGOGASTRODUODENOSCOPY Nausea Colon cancer screening COLONOSCOPY Nausea Colon cancer screening documented as of this encounter Visit Diagnoses Diagnosis Palpitations- Primary LV dysfunction Left heart failure NICM (nonischemic cardiomyopathy) (CMS/HCC) (HCC) documented in this encounter Discontinued Medications Medication Sig Discontinue Reason Start Date End Da te metoprolol XL (TOPROL-XL) 50 mg extended release tablet Take 1 tablet (50 mg total) by mouth daily Reorder 02/23/2020 05/28/2020 metoprolol XL (TOPROL-XL) 100 mg 24 hr tablet Take 0.5 tablets (50 mg total) by mouth daily 05/28/2020 05/28/2020 documented as of this encounter Care Teams Proof Technician Relationship Specialty Start Date End Date Newton Mendiola MD [address] [address] PCP - General 06/09/16 Sly Cade MD [address] [address] Referring Physician Cardiology 12/07/18 documented as of this encounter
--- OUTSIDE RECORDS SUMMARY | 2024-03-18 05:02 | XMS_ITS | Encounter Summary ---
Author Organization [facility] Address [address] [place] [address] Phone Care Team Providers Care Group Care Worker Name Role Phone Newton Mendiola MD Primary Care Provider [phone] Sly Cade MD Unavailable [phone] Encounter Details Date Type Department Care Team (Late st Contact Info) Description 06/01/2020 Telephone [facility] Cardiology [address] [facility] Medical Office Building [address] [place] [address] Matt Remy MD [address] [facility] [address] [place] [address] Social History Tobacco Use Types Packs/Day Years Used Date Smoking Tobacco: Former Cigarettes Smokeless Tobacco: Never Alcohol Use Standard Drinks/Week Comments No 0 (1 standard drink = 0.6 oz pur e alcohol) Comments No Sex and Gender Information Value Date Recorded Sex Assigned at Not on file 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 She will call us if anything changes * Telephone Encounter - Matt Remy MD - 07/13/2020 8:45 PM CDT Is she feeling back to normal or better but not back to normal. If back to normal then keep currentdose, if not back to normal than increase to 200 mg. * Telephone Encounter - Chacha Valencia RN - 07/13/2020 4:36 PM CDT Mrs. Sauceda called back to verify instructions re: metop. I instructed her to stay at current metop dose until verified with MD. She verbalized understanding. No further questions. * Telephone Encounter - Chacha Valencia RN - 07/13/2020 12:09 PM CDT I spoke with Mrs. Sauceda for an update. She has not had BMP drawn- she will do this as soon as possible. Pt's BP recently has been averaging 133-149/80s; HR 70s. She has been feeling a lot better recently. She is agreeable to increasing metop if Dr. Remy would like to. Would you like to go 200 mg daily? I informed her I will CB with recs and we will watch for lab results. Pt verbalizes understanding. No further questions. * Telephone Encounter - Cahcha Valencia RN - 07/13/2020 11:57 AM CDT LMOR requesting CB. * Telephone Encounter - Odalis Monroe RN - 07/12/2020 3:58 PM CDT Called pt lmor * Telephone Encounter - Maryann Benavidez RN - 07/11/2020 11:03 AM CDT LMOR to CB * Telephone Encounter - Odalis Monroe RN - 06/18/2020 4:32 PM CDT Spoke with pt she is aware of plan will f/u in a couple of weeks. * Telephone Encounter - Matt Remy MD - 06/18/2020 2:28 PM CDT Thanks for the update. Her blood pressures are much better and are exactly within the range that I would like. Her spells at night do not appear to be angina but may be due to anxiety. Let us have her continue on the metoprolol 100 mg daily for the next 2 to 3 weeks and then if she still tolerates this dose, we can increase to 200 mg daily at that time. Please call her in a few weeks to follow-up with this plan. * Telephone Encounter - Odalis Monroe RN - 06/18/2020 11:24 AM CDT Spoke with pt she states she started aldactone yesterday. She states her bp's have been a little better since metoprolol was increased a couple of weeks ago. 140/80, 119/70 06/16 142/82, 72 124/84, 77 She states she had a spell that woke her from her sleep a couple of nights ago. She woke up with chest pain in her bottom left chest area felt like a hot burning knife poking through her chest lasted less than a min. She states she is still having spells of fast heart beating occurs randomly. She states this happens at least daily. She has not noticed a change with this since increasing the metoprolol to 100mg * Telephone Encounter - Matt Remy MD - 06/18/2020 9:38 AM CDT Agree with starting spironolactone. Discussed with Dr. Hammonds between clinic patients that day and he agrees likely atrial tachycardia but would need EP study to confirm. Continue higher dose of metoprolol and if still symptomatic, then increase to 200 mg and if then still symptomatic can then likely offer EP evaluation +/- EP study. * Telephone Encounter - Maryann Benavidez RN - 06/13/2020 3:08 PM CDT Placed order for BMP * Telephone Encounter - Maryann Benavidez RN - 06/13/2020 3:05 PM CDT Called to pt. Verbalized understanding of meds , labs, and plan. Plans to go to lab [facility]. Ma pleaseput through spironolactone 25mg daily . thanks * Telephone Encounter - Cat Vale NP - 06/13/2020 2:[address] Remy's note add spironolactone 25mg daily. Check BMP 7-10 days after starting. Continue current course in regards to palpitations-- Dr. eRmy indicated that he was going to review with EP colleagues and I am not sure the result of that. I will follow up with him about this when he returns [place]. * Telephone Encounter - Odalis Monroe RN - 06/12/2020 12:40 PM CDT Spoke with pt States she is still feeling palpitations. She states sometimes it feels like heart is racing and other times it feels slow and flip flopping She only has a few readings she forgot to check them. She states she has since put a timer on her phone to remind her:) 06/03 153/87, 85 140/91 91 hr later 06/11 130/82, 90 06/12 [id number] today monitor stated irregular heart beat HR 85 No chest pain, but on occasion feels like she has some sob with exertion. If she does stairs she has to stop and catch her breath. She also states sometimes at night when sleeping she feels like she cant catch her breath. No swelling in legs and feet and weight stable. The above is on the increased metoprolol xl 100 mg every day she just increased last week. Losartan 50mg every day imdur 30mg every day * Telephone Encounter - Mary Contreras - 06/12/2020 12:22 PM CDT Sandrita Pt returning call * Telephone Encounter - Odalis Monroe RN - 06/11/2020 12:14 PM CDT Called pt lmor * Telephone Encounter - Odalis Monroe RN - 06/01/2020 12:33 PM CDT ----- Message from Matt Remy MD sent at 05/28/2020 12:13 PM CDT ----- BP and symptom check in 2 weeks documented in this encounter Plan of Treatment Scheduled Procedures Name Priority Associated Diagnoses Date/Ti me ESOPHAGOGASTRODUODENOSCOPY Nausea Colon cancer screening COLONOSCOPY Nausea Colon cancer screening documented as of this encounter Visit Diagnoses Not on filedocumented in this encounter Care Teams Group Care Worker Relationship Specialty Start Date End Date Newton Mendiola MD [address] [address] PCP - General 06/09/16 Sly Cade MD [address] [address] Referring Physician Cardiology 12/07/18 documented as of this encounter
--- OUTSIDE RECORDS SUMMARY | 2024-03-18 05:02 | XMS_ITS | Encounter Summary ---
Author Organization [facility] Address [address] [place] [address] Phone Care Team Providers Care Service Trainer Name Role Phone Newton Mendiola MD Primary Care Provider [phone] Sly Cade MD Unavailable [phone] Reason for Visit * Cardiology (Routine) - Closed Specialty Diagnoses / Procedures Referred By Contac t Referred To Contact Diagnoses NICM (nonischemic cardiomyopathy) (CMS/HCC) (FORMERLY [facility]) Procedures Transthoracic Echo Complete W Doppler/CF Billie Padron MD Phone: tel: fax: [facility] Referral ID Status Reason Start Date Expiration Date Visits Re quested Visits Authorized [id number] Closed 02/23/2020 03/23/2020 1 1 Encounter Details Date Type Department Care Team (Latest Contact Info) Description 03/02/2020 2:00 PM DISTRIBUTION SYSTEMS SUPERINTENDENT Ancillary Procedure [facility] [address] [facility] [address] [place] [address] Billie Padron MD [address] [place] [address] NICM (nonischemic cardiomyopathy) (CMS/HCC) Discharge Disposition: Discharge to home or self care Social History Tobacco Use Types Packs/Day Years Used Date Smoking Tobacco: Former Cigarettes Smokeless Tobacco: Never Alcohol Use Standard Drinks/Week Comments No 0 (1 standard drink = 0.6 oz pur e alcohol) Comments Unknown Sex and Gender Information Value Date Recorded Sex Assigned at Not on file Legal Sex Female 7:55 AM DISTRIBUTION SYSTEMS SUPERINTENDENT Gender Identity Not on file Sexual Orientation [...] (TTE) COMPLETE W DOPPLER/CF W CONTRAST Routine 03/02/2020 2:44 PM DISTRIBUTION SYSTEMS SUPERINTENDENT NICM (nonischemic cardiomyopathy) (CMS/HCC) documented in this encounter Results * TRANSTHORACIC ECHO (TTE) COMPLETE W DOPPLER/CF W CONTRAST (03/02/2020 2:44 PM DISTRIBUTION SYSTEMS SUPERINTENDENT) Anatomical Region Laterality Modality Ultrasound 03/02/2020 2:00 PM DISTRIBUTION SYSTEMS SUPERINTENDENT Narrative 03/02/2020 4:31 PM DISTRIBUTION SYSTEMS SUPERINTENDENT Patient name: Katy Sauceda Date of test: 03/02/2020 Type of test: TTE w/Doppler [facility] #: [id number] Date of : 1965 (F) Stenciling Machine Tender: Kusum Rivas RDCS Referring Physician: BILLIE PADRON MD Contrast Agent: 0.4 ml Optison Administered, (2.6 ml wasted). Contrast Administered by: Paris Snell RN Supervised/Interpreted by: Kathy Costello MD Diagnosis: Location: [facility] Reason for test: NICM MV Structure: Normal, ?MV Motion: Normal, ?? [...] Variable ?2D Linear Normal ? Aotic Root: 3.0 cm ?<3.6 ? Ao Indexed: 1.5 cm/M2 <2.0 ? LA: ? <3.8 ? RV: ? 2.9 cm ?<4.2 ? LV(ED): ? 5.1 cm ?<5.3 ? LV(ES): ? 3.5 cm ?<3.5 ?2D Vol. ?? Normal ?Indexed ?? Indexed Normal RA: ? 14.0 ml ? 7.1 ml/M2 ? 9-33 ? LA: ? 36.0 ml ? 18.4 ml/M2 ?16-34 ? RV: ? <11.6 ? LV(ED): ? 114.0 ml ??46-106 ?58.2 ml/M2 ?<62 ? LV(ES): ? 61.0 ml ?? 14-42 ? 31.1 ml/M2 ?<25 ?3D Vol. ? Indexed Normal LV(ED): ?<62 ? LV(ES): ?<24 ? LV EF: 46 % ?? (Normal: >=54%) ?? LV Septum: 0.9 cm ?(Normal: <0.9 cm) Wall Motion Scoring (1=Normal 2=Hypo 3=Akinetic 4=Dyskin./Aneurysm 0=Not visualized) Parasternal Long [place]:MAS=2 BAS=2 MIL=2 KAYLEY=2 Parasternal Short [place]:MAS=2 MIS=2 OK=2 MIL=2 MAL=2 MA=2 Apical 4 Chambers:=2 MIS=2 BIS=2 BAL=2 MAL=2 AL=2 AC=2 Apical 2 Chambers:AI=2 OK=2 BI=2 BA=2 MA=2 AA=2 AC=2 LV Global Longitudinal Strain: -13.36% ??(Normal <-17%) RV Global Longitudinal Strain: LV Function: Mild Global reduction in LV Ejection Fraction (EF=41-53%) RV Function: Normal Septal Motion: dyssynchronous Pericardial Effusion: none seen Atrial Septum: Normal DOPPLER/COLOR FLOW DOPPLER RESULTS: Diastolic Function: Impaired Relaxation Tricuspid Valve: trace TR Pulmonic Valve: normal PV AV Regurgitation: Mild AR AV Stenosis: no AV Area: ??cm2 AV Pressure Gradient (mmHg): Mean: 0, Peak:0 MV Regurgitation: No MR seen MV Stenosis: no MS MV Area: ??cm2 MV Pressure Gradient (mmHg): Mean: 0 MV ERO: ??cm Regurg. Vol.: ??ml/beat Regurg. Frac.: ??% PA Pressure: 30 mmHg DOPPLER/COLOR FOLOW DOPPLER COMMENTS: Mild AR, No MR seen, no , no MS, trace TR, normal PV. Diastolic function: Impaired Relaxation E'lat = 5 cm/s; E/E'lat > 12 c/w elevated LAP. CONTRAST: 0.4 ml Optison Administered, (2.6 ml wasted). SUMMARY: Nromal LV size with mild global LV systolic dysfunction (EF 46% biplane). Mildly reduced global LV myocardial longitudinal function. Normal LV mass. Normal RV size and systolic function. Normal LA and RA size. Mild AR. Trace TR. PASP 30 mmHg (faint TR jet). Impaired LV relaxation with increased LA pressure. Normal IVC and aorta. Compared with prior TTE on 12/29/18, the EF is visually similar. Confirmed on ??03/02/2020 - 16:31:24 by Kathy Costello MD By signing this report, the attending mold finisher certifies that he or she has personally supervised and interpreted the echocardiogram and has reviewed and or edited and agrees with the written comments contained within the report. Procedure Note de Kathy Luis MD - 03/02/2020 Patient name: Katy Sauceda Date of test: 03/02/2020 Type of test: TTE /[facility] #: [id number] Date of : 1965 (F) Stenciling Machine Tender: Kusum Rivas RDCS Referring Physician: BILLIE PADRON MD Contrast Agent: 0.4 ml Optison Administered, (2.6 ml wasted). Contrast Administered by: Paris Snell RN Supervised/Interpreted by: Kathy Costello MD Diagnosis: Location: [facility] Reason for test: NICM MV Structure: Normal, MV Motion: Normal, Mitral Annulus: Normal AV Structure: tricuspid and is Normal, AV Motion: Normal Aotic root: Normal, TM: Normal, PV: Normal Valvular Vegetations: none seen, Mass/Thrombi: none seen RA: Normal Measurements: M-Mode Normal Aotic Root: <3.8 LA: <3.8 RV: <2.8 LV(ED): <5.7 LV(ES): Variable 2D Linear Normal Aotic Root: 3.0 cm <3.6 Ao Indexed: 1.5 cm/M2 <2.0 LA: <3.8 RV: 2.9 cm <4.2 LV(ED): 5.1 cm <5.3 LV(ES): 3.5 cm <3.5 2D Vol. Normal Indexed Indexed Normal RA: 14.0 ml 7.1 ml/M2 9-33 LA: 36.0 ml 18.4 ml/M2 16-34 RV: <11.6 LV(ED): 114.0 ml 46-106 58.2 ml/M2 <62 LV(ES): 61.0 ml 14-42 31.1 ml/M2 <25 3D Vol. Indexed Normal LV(ED): <62 LV(ES): <24 LV EF: 46 % (Normal: >=54%) LV Septum: 0.9 cm (Normal: <0.9 cm) Wall Motion Scoring (1=Normal 2=Hypo 3=Akinetic 4=Dyskin./Aneurysm 0=Not visualized) Parasternal Long [place]:MAS=2 BAS=2 MIL=2 KAYLEY=2 Parasternal Short [place]:MAS=2 MIS=2 OK=2 MIL=2 MAL=2 MA=2 Apical 4 Chambers:=2 MIS=2 BIS=2 BAL=2 MAL=2 AL=2 AC=2 Apical 2 Chambers:AI=2 OK=2 BI=2 BA=2 MA=2 AA=2 AC=2 LV Global Longitudinal Strain: -13.36% (Normal <-17%) RV Global Longitudinal Strain: LV Function: Mild Global reduction in LV Ejection Fraction (EF=41-53%) RV Function: Normal Septal Motion: dyssynchronous Pericardial Effusion: none seen Atrial Septum: Normal DOPPLER/COLOR FLOW DOPPLER RESULTS: Diastolic Function: Impaired Relaxation Tricuspid Valve: trace TR Pulmonic Valve: normal PV AV Regurgitation: Mild AR AV Stenosis: no AV Area: cm2 AV Pressure Gradient (mmHg): Mean: 0, Peak:0 MV Regurgitation: No MR seen MV Stenosis: no MS MV Area: cm2 MV Pressure Gradient (mmHg): Mean: 0 MV ERO: cm Regurg. Vol.: ml/beat Regurg. Frac.: % PA Pressure: 30 mmHg DOPPLER/COLOR FOLOW DOPPLER COMMENTS: Mild AR, No MR seen, no , no MS, trace TR, normal PV. Diastolic function: Impaired Relaxation E'lat = 5 cm/s; E/E'lat > 12 c/w elevated LAP. CONTRAST: 0.4 ml Optison Administered, (2.6 ml wasted). SUMMARY: Nromal LV size with mild global LV systolic dysfunction (EF 46% biplane). Mildly reduced global LV myocardial longitudinal function. Normal LV mass. Normal RV size and systolic function. Normal LA and RA size. Mild AR. Trace TR. PASP 30 mmHg (faint TR jet). Impaired LV relaxation with increased LA pressure. Normal IVC and aorta. Compared with prior TTE on 12/29/18, the EF is visually similar. Confirmed on 03/02/2020 - 16:31:24 by Kathy Costello MD By signing this report, the attending mold finisher certifies that he or she has personally supervised and interpreted the echocardiogram and has reviewed and or edited and agrees with the written comments contained within the report. Billie Padron MD CV ECHO PROCEDURES Final R esult documented in this encounter Visit Diagnoses Diagnosis NICM (nonischemic cardiomyopathy) (CMS/HCC) (HCC) documented in this encounter Administered Medications Inactive Administered Medications - up to 3 most recent administrations Medication Order MAR Action Action Date Dose Rate Site perflutren protein-a (OPTISON) 3 mL in sodium chloride 0.9% 8 mL syringe 1-8 mL, intravenous, Once in imaging, contrast, Starting on Thu03/02/20 at 1356, For 1 dose, Intra-Procedure (CV) Given 03/02/2020 2:29 PM DISTRIBUTION SYSTEMS SUPERINTENDENT 1 mL documented in this encounter Care Teams Service Trainer Relationship Specialty Start Date End Date Newton Mendiola MD [address] [place] [address] PCP - General 06/09/16 Sly Cade MD [address] [place] [address] Referring Physician Cardiology 12/07/18 documented as of this encounter
--- OUTSIDE RECORDS SUMMARY | 2024-03-18 05:02 | XMS_ITS | Encounter Summary ---
Author Organization [facility] Address [address] [place] [address] Phone Care Team Providers Care Patient Transport Officer Name Role Phone Newton Mendiola MD Primary Care Provider [phone] Sly Cade MD Unavailable [phone] Encounter Details Date Type Department Care Team (Late st Contact Info) Description 12/04/2020 Telephone [facility] Cardiology [address] [facility] [address] [place] [address] Matt Remy MD [address] [facility] [address] [place] [address] Social History Tobacco Use Types Packs/Day Years Used Date Smoking Tobacco: Former Cigarettes 0.5 10 1 990 - 2000 Smokeless Tobacco: Never Alcohol Use Standard Drinks/Week Comments No 0 (1 standard drink = 0.6 oz pur e alcohol) Comments No Sex and Gender Information Value Date Recorded Sex Assigned at Not on file Legal Sex Female 7:55 AM 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 She is actually losing weight. We will plan to repeat an echo to evaluate for worsening EF, particularly w/ weight loss and abd discomfort. From a cardiac perspective she would likely benefit from starting an SGLT2i, particularly given recently diagnosed prediabetes. She has been miserable since starting metformin so we will stop that today. She can continue her other GDMT medications at their current doses. ?? 1 will start dapagloflozin 5 mg today with plan to increase to 10 mg after 1 month. Stop metformin due to intolerance 2 repeat TTE ECHO on 12/10 Increase meds documented in this encounter Plan of Treatment Scheduled Procedures Name Priority Associated Diagnoses Date/Ti me ESOPHAGOGASTRODUODENOSCOPY Nausea Colon cancer screening COLONOSCOPY Nausea Colon cancer screening documented as of this encounter Visit Diagnoses Not on filedocumented in this encounter Care Teams Patient Transport Officer Relationship Specialty Start Date End Date Newton Mendiola MD [address] [address] PCP - General 06/09/16 Sly Cade MD [address] [address] Referring Physician Cardiology 12/07/18 documented as of this encounter
--- OUTSIDE RECORDS SUMMARY | 2024-03-18 05:02 | XMS_ITS | Encounter Summary ---
Author Organization [facility] Care Team Providers Care Shot Lighter Name Role Phone Newton Mendiola MD Primary Care Provider [phone] Sly Cade MD Unavailable [phone] Encounter Details Date Type Department Care Team (Latest Contact Info) Description 12/23/2018 Travel Social History Tobacco Use Types Packs/Day Years Used Date Smoking Tobacco: Former Smokeless Tobacco: Never Alcohol Use Standard Drinks/Week Comments No 0 (1 standard drink = 0.6 oz pur e alcohol) Comments Unknown Sex and Gender Information Value Date Recorded Sex Assigned at Not on file Legal Sex Female 7:55 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 HELPER Gender Identity Not on file Sexual Orientation Not on file documented as of this encounter Plan of Treatment Scheduled Procedures Name Priority Associated Diagnoses Date/Ti me ESOPHAGOGASTRODUODENOSCOPY Nausea Colon cancer screening COLONOSCOPY Nausea Colon cancer screening documented as of this encounter Visit Diagnoses Not on filedocumented in this encounter Care Teams Shot Lighter Relationship Specialty Start Date End Date Newton Mendiola MD [address] [address] PCP - General 06/09/16 Sly Cade MD [address] [address] Referring Physician Cardiology 12/07/18 documented as of this encounter
--- OUTSIDE RECORDS SUMMARY | 2024-03-18 05:02 | XMS_ITS | Encounter Summary ---
Author Organization [facility] Address [address] [place] [address] Care Team Providers Care Reflesher Name Role Phone Newton Mendiola MD Primary Care Provider [phone] Sly Cade MD Unavailable [phone] Encounter Details Date Type Department Care Team (Late st Contact Info) Description 11/28/2019 6:55 PM CDT Lab [address] [address] Acute non-recurrent maxillary sinusitis Social History Tobacco Use Types Packs/Day Years Used Date Smoking Tobacco: Former Cigarettes Smokeless Tobacco: Never Alcohol Use Standard Drinks/Week Comments No 0 (1 standard drink = 0.6 oz pur e alcohol) Comments Unknown Sex and Gender Information Value Date Recorded Sex Assigned at Not on file Legal Sex Female 7:55 AM OPERATIONAL INTELLIGENCE OFFICER Gender Identity Not on file Sexual Orientation Not on file documented as of this encounter Miscellaneous Notes * Result Encounter Note - Levon Zaidi MA - 11/30/2019 9:09 AM CDT Patient was notified that her Covid-19 test was negative. Patient was informed that she should continue to self isolate until at least 10 days have passed since the onset of her symptoms and she has been fever free without the use of fever reducing medications for at least 24 hours. Patient verbalized understanding. documented in this encounter Plan of Treatment Scheduled Procedures Name Priority Associated Diagnoses Date/Ti me ESOPHAGOGASTRODUODENOSCOPY Nausea Colon cancer screening COLONOSCOPY Nausea Colon cancer screening documented as of this encounter Procedures Procedure Name Priority Date/Time Associated Diagnosis Comments COVID-19 CORONAVIRUS RNA Routine 11/28/2019 4:03 PM CDT Acute non-recurrent maxillary sinusitis documented in this encounter Results * COVID-19 Coronavirus RNA Nasopharyngeal (11/28/2019 4:03 PM CDT) COVID-19 RNA Not Detected KEKE ACOSTA Comment: Interpretive Data Testing performed at [facility] Molecular Infectious Disease Laboratory. The 2019-Novel Coronavirus [...] last revised on 2019. Testing performed by: [facility], [address] [place]., [address] Nasopharyngeal 11/28/2019 4: 03 PM CDT 11/29/2019 4:15 AM CDT Narrative KEKE ACOSTA - 11/29/2019 9:54 PM CDT Is the patient experiencing any symptoms consistent with COVID (eg. Fever, cough, shortness of breath)?->Yes What is the reason for testing?->Symptoms compatible with COVID-19 in high-risk group (defined above in process inst.) Roxanne Berg PENSIONS RETIREMENT PLAN SPECIALIST LAB MICROBIOLOGY - [facility] ORDERABLES Final Result KEKE ACOSTA [address] Department [place] [address] documented in this encounter Visit Diagnoses Diagnosis Acute non-recurrent maxillary sinusitis documented in this encounter Additional Health Concerns Infection Onset Date Last Indicated Resolved Time COVID: Suspected 11/28/2019 11/28/2019 11/29/2019 9:55 PM CDT documented as of this encounter Care Teams Reflesher Relationship Specialty Start Date End Date Newton Mendiola MD [address] [address] PCP - General 06/09/16 Sly Cade MD [address] [place] [address] Referring Physician Cardiology 12/07/18 documented as of this encounter
--- OUTSIDE RECORDS SUMMARY | 2024-03-18 05:02 | XMS_ITS | Encounter Summary ---
Author Organization [facility] Address [address] [place] [address] Phone Care Team Providers Care Policy Director Name Role Phone Newton Mendiola MD Primary Care Provider [phone] Sly Cade MD Unavailable [phone] Reason for Referral * Cardiology (Routine) - Closed Specialty Diagnoses / Procedures Referred By Nino fletcher Referred To Contact Diagnoses NICM (nonischemic cardiomyopathy) (CMS/HCC) (HCC) Procedures Transthoracic Echo Complete W Doppler/CF Matt Padron MD Phone: tel: fax: [facility] Referral ID Status Reason Start Date Expiration Date Visits Re quested Visits Authorized [id number] Closed 12/04/2020 01/03/2022 1 1 Reason for Visit * Reason Comments Follow-up Encounter Details Date Type Department Care Team (Late st Contact Info) Description 12/04/2020 9:15 AM CDT Office Visit [facility] Cardiology 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 Gender Identity Not on file Sexual Orientation Not on file documented as of this encounter Last Filed Vital Signs Vital Sign Reading Time Taken Comments Blood Pressure 118/66 12/04/2020 9:15 AM CDT Pulse 77 12/04/2020 9:15 AM CDT Temperature - - Respiratory Rate - - Oxygen Saturation 98% 12/04/2020 9:15 AM CDT Inhaled Oxygen Concentration - - Weight 86.2 kg (190 lb) 12/04/2020 9:15 AM CDT Height 162.6 cm (5' 4 ) 12/04/2020 9:15 AM CDT Body Mass Index 32.61 12/04/2020 9:15 AM CDT documented in this encounter Ordered Prescriptions Prescription Sig Dispense Quantity Refills Last Filled Start Date End Date dapagliflozin (FARXIGA) 5 mg tabletIndications: heart failure with reduced ejection fraction Take 1 tablet (5 mg total) by mouth daily 30 tablet 12/04/2020 12/21/2020 documented in this encounter Progress Notes * Perry Saucedo MD - 12/04/2020 9:15 AM CDT Images from the original note were not included. Cardiology Return Clinic Visit Visit Date: 12/04/20 Patient Diagnosis List 1. NICM a. Informed of LBBB during pre-op EKG years ago , then [facility] demonstrating no [facility]ographically significant [...] c. Intolerance to metformin (abdominal pain 11/2020) Dear Marlena, Newton Molina MD We had the pleasure of seeing Katy Sauceda at the [facility] at [facility] in [place]. As you recall, she is a pleasant 55 y.o. female that we follow for non-ischemic cardiomyopathy. Today she reports that she has had some worsening of her CARTER. She is now getting SOB and having to stop with walking around her house or climbing up five stairs. About a month ago she added a third pillow at night d/t orthopnea. Of note, unfortunately her daughter about two weeks ago trevor car accident. She is losing weight which she thinks may be related to poor PO intake and her menta health. She became tearful discussing her daugther in the room with me. She denies any RADHA or syncopal episodes. She continues to have rare, brief episodes of chest discomfort. Her palpitations have become somewhat less frequent, about once a week and still lasting about a minute. She was recently started on metformin by her PCPs office for prediabetes but has had pretty much constant nausea and abdominal discomfort since starting this. ROS: As her HPI, otherwise 12 point review of systems reviewed and negative Objective CV Medications Aspirin 81 mg Atorvastatin 10mg qhs Imdur 30 mg Losartan 50 mg Metoprolol XL 100 mg qd Spironolactone 25 qd Vitals & Physical Exam HR: 77 BP: 118/66 Weight: 190 lbs GEN: pleasant female in NAD; somewhat [...] abnormalitites & no major change from 2019 Madeleine capture during palpitations 05/20/20 Assessment Recommendations #Non-Ischemic Cardiomyopathy + HFmrEF Today patient reports [...] other GDMT medications at their current doses. 1 will start dapagloflozin 5 mg today with plan to increase to 10 mg after 1 month. 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 #HLD: LDL elevated on recent lipid panel, starting atorvastatin this week w/ comorbid prediabetes. #Atrial tachycardia Symptoms improved somewhat since increasing dose of metoprolol. Will not plan on making any changestoday. Thank you for the opportunity to participate in the care of this wonderful patient. We will plan onseeing them back in 6 months time. Please do not hesitate to contact us with any questions or concerns that may arise in the interim. Perry Saucedo MD Surface Plate Finisher PGY-IV 12/04/2020 at 8:40 AM Matt Padron MD on 12/04/2020 at 10:34 AM Booster Pump Oilerstaff development coordinator (Cardiology) Director, Sports Cardiology [facility] in [place] Cosigned by Matt Padron MD at 12/04/2020 10:34 AM CDT Associated attestation - Matt Padron MD - 12/04/2020 10:34 AM CDT I have seen and examined the patient. I agree with the findings and plan of care as documented in the resident/fellow's note. My total encounter time on 12/04/2020 was 30 minutes which was spent in the activities documented in the note. This includes time spent prior to the visit and after the visitin direct care of the patient. This time does not include time spent in any separately reportable services. documented in this encounter Plan of Treatment Scheduled Procedures Name Priority Associated Diagnoses Date/Ti me ESOPHAGOGASTRODUODENOSCOPY Nausea Colon cancer screening COLONOSCOPY Nausea Colon cancer screening documented as of this encounter Results * TRANSTHORACIC ECHO (TTE) COMPLETE W DOPPLER/CF W CONTRAST (12/10/2020 9:22 AM CDT) Anatomical Region Laterality Modality Ultrasound 12/10/2020 8:30 AM CDT Narrative 12/10/2020 11:58 AM CDT Patient name: Katy Sauceda Date of test: 12/10/2020 Type of test: TTE w/Doppler [facility] #: [id number] Date of : 1965 (F) Environmental Health Specialist: SON Samuel Referring Physician: MATT PADRON MD Contrast Agent: 0.4 ml Optison Administered, (2.6 ml wasted). Contrast Administered by: Kaylee Terry RN Supervised/Interpreted by: Timoteo Caldwell MD Diagnosis: Location: [facility] Reason for test: NICM MV Structure: Normal, [...] Variable ?2D Linear Normal ? Aotic Root: 3.1 cm ?<3.6 ? Ao Indexed: 1.6 cm/M2 <2.0 ? LA: ? <3.8 ? RV: ? 3.2 cm ?<4.2 ? LV(ED): ? 5.1 cm ?<5.3 ? LV(ES): ? 3.9 cm ?<3.5 ?2D Vol. ?? Normal ?Indexed ?? Indexed Normal RA: ? 25.0 ml ? 13.1 ml/M2 ?9-33 ? LA: ? 49.0 ml ? 25.6 ml/M2 ?16-34 ? RV: ? <11.6 ? LV(ED): ? 153.0 ml ??46-106 ?79.9 ml/M2 ?<62 ? LV(ES): ? 75.0 ml ?? 14-42 ? 39.2 ml/M2 ?<25 ?3D Vol. ? Indexed Normal LV(ED): ? 80.5 mL/m2 ?? <62 ? LV(ES): ? 38.7 mL/m2 ?? <24 ? LV EF: 51 % ?? (Normal: >=54%) ?? LV Septum: 0.9 cm ?(Normal: <0.9 cm) Wall Motion Scoring (1=Normal 2=Hypo 3=Akinetic 4=Dyskin./Aneurysm 0=Not visualized) Parasternal Long [place]:MAS=2 BAS=2 MIL=2 KAYLEY=2 Parasternal Short [place]:MAS=2 MIS=2 FL=2 MIL=2 MAL=2 MA=2 Apical 4 Chambers:=2 MIS=2 BIS=2 BAL=2 MAL=2 AL=2 AC=2 Apical 2 Chambers:AI=2 FL=2 BI=2 BA=2 MA=2 AA=2 AC=2 LV Global Longitudinal Strain: -14.1% ??(Normal <-17%) RV Global Longitudinal Strain: LV Function: Mild Global reduction in LV Ejection Fraction (EF=41-53%) RV Function: Normal Septal Motion: paradoxic Pericardial Effusion: none seen Atrial Septum: Normal DOPPLER/COLOR FLOW DOPPLER RESULTS: Diastolic Function: Grade II, increased mean LA pres. Tricuspid Valve: mild TV regurgitation Pulmonic Valve: normal PV AV Regurgitation: Mild AR AV Stenosis: no AV Area: ??cm2 AV Pressure Gradient (mmHg): Mean: 0, Peak:0 MV Regurgitation: Mild MR MV Stenosis: no MS MV Area: ??cm2 MV Pressure Gradient (mmHg): Mean: 0 MV ERO: ??cm Regurg. Vol.: ??ml/beat Regurg. Frac.: ??% PA Pressure: 21 mmHg DOPPLER/COLOR FOLOW DOPPLER COMMENTS: Mild AR, Mild MR, no , no MS, mild TV regurgitation, normal PV. Diastolic function: Grade II, increased mean LA pres. AR T 1/2=394 ms; CONTRAST: 0.4 ml Optison Administered, (2.6 ml wasted). SUMMARY: LV cavity size index is mildly dilated. ??Milldy reduced global LV ejection fraction; ??EF 51%; ?As compared to previous study (03/02/2020 ), there are no appreciable changes. Reduced global LV myocardial longitudinal function and strain pattern. Paradoxical septal motion; ??Mild Mitral Regurgitation. Mild Aortic Regurgitation. Grade II Diastolic LV Dysfunction, characterized by increased mean LA pressure. Mild Tricuspid Regurgitation with normal estimated Pulmonary Artery Systolic Pressure. Revised on ??12/11/2020 - 09:48:29 by Timoteo Caldwell MD By signing this report, the attending pile operator certifies that he or she has personally supervised and interpreted the echocardiogram and has reviewed and or edited and agrees with the written comments contained within the report. Procedure Note Timoteo Caldwell MD - 12/11/2020 Patient name: Katy Sauceda Date of test: 12/10/2020 Type of test: TTE w/Doppler [facility] #: [id number] Date of : 1965 (F) Environmental Health Specialist: SON Samuel Referring Physician: MATT PADRON MD Contrast Agent: 0.4 ml Optison Administered, (2.6 ml wasted). Contrast Administered by: Kaylee Terry RN Supervised/Interpreted by: Timoteo Caldwell MD Diagnosis: Location: [facility] Reason for test: NICM MV Structure: Normal, MV Motion: Normal, Mitral Annulus: Normal AV Structure: tricuspid and is Normal, AV Motion: Normal Aotic root: Normal, TM: Normal, PV: Normal Valvular Vegetations: none seen, Mass/Thrombi: none seen RA: Normal Measurements: M-Mode Normal Aotic Root: <3.8 LA: <3.8 RV: <2.8 LV(ED): <5.7 LV(ES): Variable 2D Linear Normal Aotic Root: 3.1 cm <3.6 Ao Indexed: 1.6 cm/M2 <2.0 LA: <3.8 RV: 3.2 cm <4.2 LV(ED): 5.1 cm <5.3 LV(ES): 3.9 cm <3.5 2D Vol. Normal Indexed Indexed Normal RA: 25.0 ml 13.1 ml/M2 9-33 LA: 49.0 ml 25.6 ml/M2 16-34 RV: <11.6 LV(ED): 153.0 ml 46-106 79.9 ml/M2 <62 LV(ES): 75.0 ml 14-42 39.2 ml/M2 <25 3D Vol. Indexed Normal LV(ED): 80.5 mL/m2 <62 LV(ES): 38.7 mL/m2 <24 LV EF: 51 % (Normal: >=54%) LV Septum: 0.9 cm (Normal: <0.9 cm) Wall Motion Scoring (1=Normal 2=Hypo 3=Akinetic 4=Dyskin./Aneurysm 0=Not visualized) Parasternal Long [place]:MAS=2 BAS=2 MIL=2 KAYLEY=2 Parasternal Short [place]:MAS=2 MIS=2 FL=2 MIL=2 MAL=2 MA=2 Apical 4 Chambers:=2 MIS=2 BIS=2 BAL=2 MAL=2 AL=2 AC=2 Apical 2 Chambers:AI=2 FL=2 BI=2 BA=2 MA=2 AA=2 AC=2 LV Global Longitudinal Strain: -14.1% (Normal <-17%) RV Global Longitudinal Strain: LV Function: Mild Global reduction in LV Ejection Fraction (EF=41-53%) RV Function: Normal Septal Motion: paradoxic Pericardial Effusion: none seen Atrial Septum: Normal DOPPLER/COLOR FLOW DOPPLER RESULTS: Diastolic Function: Grade II, increased mean LA pres. Tricuspid Valve: mild TV regurgitation Pulmonic Valve: normal PV AV Regurgitation: Mild AR AV Stenosis: no AV Area: cm2 AV Pressure Gradient (mmHg): Mean: 0, Peak:0 MV Regurgitation: Mild MR MV Stenosis: no MS MV Area: cm2 MV Pressure Gradient (mmHg): Mean: 0 MV ERO: cm Regurg. Vol.: ml/beat Regurg. Frac.: % PA Pressure: 21 mmHg DOPPLER/COLOR FOLOW DOPPLER COMMENTS: Mild AR, Mild MR, no , no MS, mild TV regurgitation, normal PV. Diastolic function: Grade II, increased mean LA pres. AR T 03/17=394 ms; CONTRAST: 0.4 ml Optison Administered, (2.6 ml wasted). SUMMARY: LV cavity size index is mildly dilated. Milldy reduced global LV ejection fraction; EF 51%; As compared to previous study (03/02/2020 ), there are no appreciable changes. Reduced global LV myocardial longitudinal function and strain pattern. Paradoxical septal motion; Mild Mitral Regurgitation. Mild Aortic Regurgitation. Grade II Diastolic LV Dysfunction, characterized by increased mean LA pressure. Mild Tricuspid Regurgitation with normal estimated Pulmonary Artery Systolic Pressure. Revised on 12/11/2020 - 09:48:29 by Timoteo Caldwell MD By signing this report, the attending pile operator certifies that he or she has personally supervised and interpreted the echocardiogram and has reviewed and or edited and agrees with the written comments contained within the report. Matt Padron MD CV ECHO PROCEDURES Edited documented in this encounter Visit Diagnoses Diagnosis LBBB (left bundle branch block)- Primary Other left bundle branch block NICM (nonischemic cardiomyopathy) (CMS/HCC) (HCC) Palpitations NICM (nonischemic cardiomyopathy) (CMS/HCC) (HCC) documented in this encounter Discontinued Medications Medication Sig Discontinue Reason Start Date End Da te metFORMIN XR (GLUCOPHAGE XR) 500 mg 24 hr tablet Take 2 tablets (1,000 mg total) by mouth daily with breakfast 11/22/2020 12/04/2020 documented as of this encounter Care Teams Policy Director Relationship Specialty Start Date End Date Newton Mendiola MD [address] [address] PCP - General 06/09/16 Sly Cade MD [address] [address] Referring Physician Cardiology 12/07/18 documented as of this encounter
--- OUTSIDE RECORDS SUMMARY | 2024-03-18 05:02 | XMS_ITS | Encounter Summary ---
Author Organization [facility] Address [address] [place] [address] Phone Care Team Providers Care Cashiers Supervisor Name Role Phone Newton Mendiola MD Primary Care Provider [phone] Sly Cade MD Unavailable [phone] Encounter Details Date Type Department Care Team (Late st Contact Info) Description 01/26/2019 Telephone [facility] Cardiology [address] [facility] Advanced Medicine 8th [place] [address] [place] [address] Sly Cade MD [address] [place], [place] [id number] Social History Tobacco Use Types Packs/Day Years Used Date Smoking Tobacco: Former Smokeless Tobacco: Never Alcohol Use Standard Drinks/Week Comments No 0 (1 standard drink = 0.6 oz pur e alcohol) Comments Unknown Sex and Gender Information Value Date Recorded Sex Assigned at Not on file 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 PT CALLING TO SEE IF DR CADE HAS RECVD AND REVIEWED THERESULTS? PLS CALL PT TO DISCUSS. NITIES DIVISION CHAIR documented in this encounter Plan of Treatment Scheduled Procedures Name Priority Associated Diagnoses Date/Ti me ESOPHAGOGASTRODUODENOSCOPY Nausea Colon cancer screening COLONOSCOPY Nausea Colon cancer screening documented as of this encounter Visit Diagnoses Not on filedocumented in this encounter Care Teams Cashiers Supervisor Relationship Specialty Start Date End Date Newton Mendiola MD [address] [address] PCP - General 06/09/16 Sly Cade MD [address] [address] Referring Physician Cardiology 12/07/18 documented as of this encounter
--- OUTSIDE RECORDS SUMMARY | 2024-03-18 05:02 | XMS_ITS | Encounter Summary ---
Author Organization [facility] Address [address] [place] [address] Phone Care Team Providers Care Water Main Inspector Name Role Phone Newton Mendiola MD Primary Care Provider [phone] Sly Cade MD Unavailable [phone] Encounter Details Date Type Department Care Team (Late st Contact Info) Description 06/22/2019 Telephone [facility] Cardiology [address] [facility] Advanced Medicine [address]th [place] [address] [place] [address] Sly Cade MD [address] [place], [place] [id number] Social History Tobacco Use Types Packs/Day Years Used Date Smoking Tobacco: Former Smokeless Tobacco: Never Alcohol Use Standard Drinks/Week Comments No 0 (1 standard drink = 0.6 oz pur e alcohol) Comments Unknown Sex and Gender Information Value Date Recorded Sex Assigned at Not on file 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 PT WORKS FOR [employer]. documented in this encounter Plan of Treatment Scheduled Procedures Name Priority Associated Diagnoses Date/Ti me ESOPHAGOGASTRODUODENOSCOPY Nausea Colon cancer screening COLONOSCOPY Nausea Colon cancer screening documented as of this encounter Visit Diagnoses Not on filedocumented in this encounter Additional Health Concerns Infection Onset Date Last Indicated Resolved Time COVID: Suspected 07/08/2019 07/08/2019 07/10/2019 8:40 AM CDT Respiratory Infection (LAYNE), contact + droplet Comment:Automatically added due to negative COVID-19 result. 07/10/2019 07/10/2019 07/24/2019 3:0 5 AM CDT documented as of this encounter Care Teams Water Main Inspector Relationship Specialty Start Date End Date Newton Mendiola MD [address] [address] PCP - General 06/09/16 Sly Cade MD [address] [address] Referring Physician Cardiology 12/07/18 documented as of this encounter
--- OUTSIDE RECORDS SUMMARY | 2024-03-18 05:02 | XMS_ITS | Encounter Summary ---
Author Organization [facility] Address [address] [place] [address] Phone Care Team Providers Care Gore Stitcher Name Role Phone Newton Mendiola MD Primary Care Provider [phone] Sly Cade MD Unavailable [phone] Encounter Details Date Type Department Care Team (Late st Contact Info) Description 12/08/2018 Telephone [facility] [address] [facility] 6th [address] [place] [address] Michell Weston CMA Social History Tobacco Use Types Packs/Day Years Used Date Smoking Tobacco: Former Smokeless Tobacco: Never Alcohol Use Standard Drinks/Week Comments No 0 (1 standard drink = 0.6 oz pur e alcohol) Comments Unknown Sex and Gender Information Value Date Recorded Sex Assigned at Not on file 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 Report faxed to pcp and cardiology. * Telephone Encounter - Michell Weston MA - 12/08/2018 1:45 PM CDT ----- Message from Isauro Newman MD sent at 12/07/2018 7:24 AM CDT ----- Vlad Krausma, Please call this to inform her the results of her study last night. She had a negative HST for COLT in 2017. This in-lab study did not meet diagnostic criteria of COLT. AHI was 3.6/hour (normal <5/hour). She had a cluster of sleep apnea episodes in REM sleep when she slept on her back. She only snored on her back. Her total sleep was almost 6.5 hours, and she slept on her back more than 3 hours. She had a 30 minutes of REM sleep, which was less than expected. Treatment options for her snoring include weight loss and sleep on her side. CPAP and oral appliance also treat snoring but insurance may not cover since he did not meet criteria for sleep apnea. The report will be sent to her PCP and finishing area supervisor please document year discussion. thank you, Isauro documented in this encounter Plan of Treatment Scheduled Procedures Name Priority Associated Diagnoses Date/Ti me ESOPHAGOGASTRODUODENOSCOPY Nausea Colon cancer screening COLONOSCOPY Nausea Colon cancer screening documented as of this encounter Visit Diagnoses Not on filedocumented in this encounter Care Teams Gore Stitcher Relationship Specialty Start Date End Date Newton Mendiola MD [address] [address] PCP - General 06/09/16 Sly Cade MD [address] [address] Referring Physician Cardiology 12/07/18 documented as of this encounter
--- OUTSIDE RECORDS SUMMARY | 2024-03-18 05:02 | XMS_ITS | Encounter Summary ---
Author Organization [facility] Address [address] [place] [address] Care Team Providers Care Veneer Jointer Offbearer Name Role Phone Newton Mendiola MD Primary Care Provider [phone] Sly Cade MD Unavailable [phone] Reason for Visit * Reason Comments skin tag back of ear R Encounter Details Date Type Department Care Team (Late st Contact Info) Description 11/22/2020 9:30 AM CDT Office Visit [facility] [address] [place] [id number] Vicky Donaldson, MANAGER PHYSICAL [address] [facility] [address] [place], [place] [id number] Prediabetes (Primary Dx); Lesion of right ear; Mixed hyperlipidemia; Grief at loss of child Social History Tobacco Use Types Packs/Day Years Used Date Smoking Tobacco: Former Cigarettes 0.5 10 1 990 - 2000 Smokeless Tobacco: Never Alcohol Use Standard Drinks/Week Comments No 0 (1 standard drink = 0.6 oz pur e alcohol) Comments No Sex and Gender Information Value Date Recorded Sex Assigned at Not on file Legal Sex Female 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 Gender Identity Not on file Sexual Orientation Not on file documented as of this encounter Last Filed Vital Signs Vital Sign Reading Time Taken Comments Blood Pressure 136/80 11/22/2020 9:42 AM CDT Pulse 96 11/22/2020 9:42 AM CDT Temperature - - Respiratory Rate - - Oxygen Saturation 99% 11/22/2020 9:42 AM CDT Inhaled Oxygen Concentration - - Weight 88.9 kg (196 lb) 11/22/2020 9:42 AM CDT Height 162.6 cm (5' 4 ) 11/22/2020 9:42 AM CDT Body Mass Index 33.64 11/22/2020 9:42 AM CDT documented in this encounter Ordered Prescriptions Prescription Sig Dispense Quantity Refills Last Filled Start Date End Date atorvastatin (LIPITOR) 10 mg tablet Take 1 tablet (10 mg total) by mouth nightly 90 tablet 11/22/2020 1 metFORMIN XR (GLUCOPHAGE XR) 500 mg 24 hr tablet Take 2 tablets (1,000 mg total) by mouth daily with breakfast 180 tablet 1 11/22/2020 1 documented in this encounter Progress Notes * Vicky Donaldson, MANAGER PHYSICAL - 11/22/2020 9:30 AM CDT Images from the original note were not included. Office Visit Katy Sauceda is a 55 y.o. female here for skin tag back of ear (R) HPI 55 yo female with HLD, HTN, MDD, Vitamin D deficiency and cardiomyopathy. Hx of Hodgkin d/se (1992). Last seen August 2019 with weight 204 lbs and elevated lipids. May 2020 stress test with EF 41%. Presents today with c/o R posterior ear lesion noticed by 1 week ago. It is not painful. A1C 6.2% today. Father with DM2. Drinks one energy drink daily, no other sweetened beverages. No regular activity due to cardiac limitations. Lipids also elevated, FHx of CAD on both sides. Under stress. Lost daughter in MVA approx 1 mo ago. Has EAP set up but has not utilized yet. Sleeping poorly. Current Medications Current Outpatient Medications: ??? aspirin 81 mg tablet, Take 81 mg by mouth daily , Disp: , Rfl: ??? buPROPion XL (WELLBUTRIN XL) 300 mg 24 hr tablet, TAKE 1 TABLET BY MOUTH EVERY DAY (Patient taking differently: Take 300 mg by mouth every morning ), Disp: 90 tablet, Rfl: 1 ??? ergocalciferol (VITAMIN D) 50,000 unit capsule, Take 1 capsule (50,000 Units total) by mouth once a week fridays, Disp: 12 capsule, Rfl: 1 ??? fluticasone (CHILDREN'S FLONASE ALLERGY RLF) 50 mcg/actuation nasal spray, Administer 1 spray into each nostril daily as needed , Disp: , Rfl: ??? isosorbide mononitrate ER (IMDUR) 30 mg 24 hr tablet, TAKE 1 TABLET BY MOUTH EVERY DAY, Disp: 90 tablet, Rfl: 1 ??? loratadine (CLARITIN) 10 mg tablet, Take 10 mg by mouth daily, Disp: , Rfl: ??? losartan (COZAAR) 50 mg tablet, Take 1 tablet (50 mg total) by mouth daily, Disp: 90 tablet, Rfl: 3 ??? metoprolol XL (TOPROL-XL) 100 mg 24 hr tablet, Take 1 tablet (100 mg total) by mouth daily, Disp: 90 tablet, Rfl: 3 ??? ondansetron (Zofran) 4 mg tablet, Take 1 tablet (4 mg total) by mouth every 8 (eight) hours as needed for nausea or vomiting, Disp: 20 tablet, Rfl: 0 ??? pantoprazole DR (PROTONIX) 40 mg EC tablet, TAKE 1 TABLET BY MOUTH EVERY DAY (Patient taking differently: Take 40 mg by mouth daily ), Disp: 90 tablet, Rfl: 1 ??? spironolactone (ALDACTONE) 25 mg tablet, Take 1 tablet (25 mg total) by mouth daily, Disp: 90 tablet, Rfl: 3 ??? atorvastatin (LIPITOR) 10 mg tablet, Take 1 tablet (10 mg total) by mouth nightly, Disp: 90 tablet, Rfl: 0 ??? metFORMIN XR (GLUCOPHAGE XR) 500 mg 24 hr tablet, Take 2 tablets (1,000 mg total) by mouth daily with breakfast, Disp: 180 tablet, Rfl: 1 Allergies Allergies Allergen Reactions [...] ear ??? Grief at loss of child Past Medical History: Diagnosis Date ??? CHF [...] palpitations and leg swelling. Gastrointestinal: Negative for blood in stool, constipation, diarrhea and nausea. Genitourinary: Negative for dysuria. Musculoskeletal: Negative for gait problem. Skin: Negative for rash. R ear lesion Neurological: Negative for seizures and headaches. Psychiatric/Behavioral: Negative for sleep disturbance. Physical Exam Physical Exam Constitutional: [...] content normal. Judgment: Judgment normal. Vitals BP 136/80 (BP Location: Left arm, Patient Position: Sitting) Pulse 96 Ht 162.6 cm (5' 4 ) Wt 88.9 kg (196 lb) SpO2 99% BMI 33.64 kg/m?? Wt Readings from Last 3 Encounters: 11/22/20 88.9 kg (196 lb) 10/08/20 88.4 kg (194 lb 12.8 oz) 05/28/20 89.4 kg (197 lb 1.9 oz) Body mass index is 33.64 kg/m??. Assessment and Plan Diagnoses and all orders for this visit: Prediabetes (Primary) Assessment & Plan: A1C 6.2% today Reviewed A1C meaning and goal with patient today, hand out provided with her info entered RD referral, briefly reviewed diet today Encouraged small amounts of activity and slowly building up as able Start metformin ER 500mg daily x 1-2 weeks then increase to 1000mg ER daily Recheck in 3 mo Orders: - POCT glucose - POCT hemoglobin A1c - POCT lipid panel Lesion of right ear Assessment & Plan: Derm referral Orders: - Ambulatory referral to Dermatology; Future Mixed hyperlipidemia Assessment & Plan: Reviewed today, elevated Strong FHx and personal Hx of cardiomyopathy Trial atorvastatin 10 mg daily-recheck in 3 mo with A1C and CMP Activity as able, A1C control Grief at loss of child Assessment & Plan: Strongly encouraged grief counseling Other orders - metFORMIN XR (GLUCOPHAGE XR) 500 mg 24 hr tablet; Take 2 tablets (1,000 mg total) by mouth daily with breakfast - atorvastatin (LIPITOR) 10 mg tablet; Take 1 tablet (10 mg total) by mouth nightly Recommendations and Follow up Vicky Donaldson NP Cosigned by Newton Mendiola MD at 11/26/2020 12:51 PM CDT documented in this encounter Miscellaneous Notes * Assessment & Plan Note - Vicky Donaldson NP - 11/22/2020 12:14 PM CDT Associated Problem(s): Grief at loss of child (Resolved 08/28/2023) Strongly encouraged grief counseling * Assessment & Plan Note - Vicky Donaldson NP - 11/22/2020 12:13 PM CDT Associated Problem(s): Lesion of right ear (Resolved 08/27/2021) Derm referral * Assessment & Plan Note - Vicky Donaldson NP - 11/22/2020 12:11 PM CDT Associated Problem(s): Mixed hyperlipidemia Reviewed today, elevated Strong FHx and personal Hx of cardiomyopathy Trial atorvastatin 10 mg daily-recheck in 3 mo with A1C and CMP Activity as able, A1C control * Assessment & Plan Note - Vicky Donaldson NP - 11/22/2020 12:10 PM CDT Associated Problem(s): Type 2 diabetes mellitus without complication, without long-term current useof insulin ([facility]/HCC) (HCC) A1C 6.2% today Reviewed A1C meaning and goal with patient today, hand out provided with her info entered RD referral, briefly reviewed diet today Encouraged small amounts of activity and slowly building up as able Start metformin ER 500mg daily x 1-2 weeks then increase to 1000mg ER daily Recheck in 3 mo documented in this encounter Plan of Treatment Scheduled Procedures Name Priority Associated Diagnoses Date/Ti me ESOPHAGOGASTRODUODENOSCOPY Nausea Colon cancer screening COLONOSCOPY Nausea Colon cancer screening documented as of this encounter Procedures Procedure Name Priority Date/Time Associated Diagnosis Comments POCT LIPID PANEL Routine 11/22/2020 9:59 AM CDT Prediabetes POCT GLUCOSE 85981 Routine 11/22/2020 9: 58 AM CDT Prediabetes POCT HEMOGLOBIN A1C Routine 11/22/2020 9 :58 AM CDT Prediabetes documented in this encounter Results * POCT lipid panel (11/22/2020 9:59 AM CDT) HDL, POC 31 mg/dL Triglycerides, POC 176 mg/dL LDL Cholesterol POC 166 mg/dL Chol/HDL Ratio, POC 7.4 Non-HDL Cholesterol, POC 201 mg/dL Cholesterol Total, POC 232 mg/dL Capillary blood 11/22/2020 9 :59 AM CDT us Vicky Donaldson MANAGER PHYSICAL POINT OF CARE TEST ORDER FRANCISCO Final Result * POCT hemoglobin A1c (11/22/2020 9:58 AM CDT) Hemoglobin A1C, POC 6.2 Blood specimen (specimen) 11/22/2020 9:58 AM CDT us Vicky Donaldson NP POINT OF CARE TEST ORDER FRANCISCO Final Result * POCT glucose (11/22/2020 9:58 AM CDT) Glucose Blood, POC 130 mg/dL Blood specimen (specimen) 11/22/2020 9:58 AM CDT us Vicky Herbertke MANAGER PHYSICAL POINT OF CARE TEST ORDER FRANCISCO Final Result documented in this encounter Visit Diagnoses Diagnosis Prediabetes- Primary Other abnormal glucose Lesion of right ear Mixed hyperlipidemia Grief at loss of child documented in this encounter Discontinued Medications Medication Sig Discontinue Reason Start Date End Da te azithromycin (ZITHROMAX) 250 mg tabletIndications:Acute recurrent pansinusitis,Fluid level behind tympanic membrane of left ear Take 2 tablets the first day, then 1 tablet daily for 4 days. 10/08/2020 11/22/2020 rizatriptan (MAXALT) 10 mg tabletIndications:Migrai ne Take 10 mg by mouth once as needed 07/09/2016 11/22/2020 documented as of this encounter Care Teams Veneer Jointer Offbearer Relationship Specialty Start Date End Date Newton Mendiola MD [address] [address] PCP - General 06/09/16 Sly Cade MD [address] [address] Referring Physician Cardiology 12/07/18 documented as of this encounter
--- OUTSIDE RECORDS SUMMARY | 2024-03-18 05:02 | XMS_ITS | Encounter Summary ---
Author Organization [facility] Address [address] [place] [address] Phone Care Team Providers Care Business Machines Teacher Name Role Phone Newton Mendiola MD Primary Care Provider [phone] Sly Cade MD Unavailable [phone] Encounter Details Date Type Department Care Team (Late st Contact Info) Description 02/16/2020 Telephone [facility] Cardiology [address] [facility] [address] [place] [address] [place] [id number] Sly Cade MD [address] [place], [place] [id number] Social History Tobacco Use Types Packs/Day Years Used Date Smoking Tobacco: Former Cigarettes Smokeless Tobacco: Never Alcohol Use Standard Drinks/Week Comments No 0 (1 standard drink = 0.6 oz pur e alcohol) Comments Unknown Sex and Gender Information Value Date Recorded Sex Assigned at Not on file Legal Sex Female 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 Remy. She has not heard back from Dr. Mendiola's office yet. AZZO FINISHER HELPER AZZO FINISHER HELPER * Telephone Encounter - Sheyla Guthrie CMA - 02/21/2020 2:35 PM CST Called patient/ No answer, lmor asking patient to call back to schedule with a documentation manager here inour office, also for patient to schedule an appt with Dr. Mendiola. AZZO FINISHER HELPER * Telephone Encounter - Odalis Monroe RN - 02/17/2020 5:05 PM CST Called pt lmor to see Dr mendiola and call our office for an in office apt. AZZO FINISHER HELPER * Telephone Encounter - Odalis Monroe RN - 02/17/2020 4:06 PM CST PER SN: pt should see Dr. Mendiola and have her see cardiology in the office. AZZO FINISHER HELPER * Telephone Encounter - Carmita Luis RN - 02/16/2020 2:13 PM CST I spoke with the patient. She states CARTER on started 4 weeks ago. She is recovering from a sinus infection which she is on antibiotics for. She has TONG and pressure from that but she denies any other symptoms. She states she gets frequent sinus infections and this CARTER is new. She was COVID tested negative a month ago at start of symptoms AZZO FINISHER HELPER * Telephone Encounter - Sheyla Guthrie CMA - 02/16/2020 9:57 AM CST Patient having shortness of breath, last tested for covid 1 month ago, was negative. SOB for two weeks. I scheduled her for a telephone visit with Dr. Cade for 03/08/20 at 10:00 a.m. Patient aware. PLEASE CALL PATIENT RE: SYMPTOMS. THANKS. AZZO FINISHER HELPER * Telephone Encounter - Essie Weiss - 02/16/2020 9:16 AM CST Pt called to schedule rov with Dr. Cade, please call. AZZO FINISHER HELPER documented in this encounter Plan of Treatment Scheduled Procedures Name Priority Associated Diagnoses Date/Ti me ESOPHAGOGASTRODUODENOSCOPY Nausea Colon cancer screening COLONOSCOPY Nausea Colon cancer screening documented as of this encounter Visit Diagnoses Not on filedocumented in this encounter Care Teams Business Machines Teacher Relationship Specialty Start Date End Date Newton Mendiola MD [address] [address] PCP - General 06/09/16 Sly Cade MD [address] [address] Referring Physician Cardiology 12/07/18 documented as of this encounter
--- OUTSIDE RECORDS SUMMARY | 2024-03-18 05:02 | XMS_ITS | Encounter Summary ---
Author Organization [facility] Address [address] [place] [address] Phone Care Team Providers Care Travelers' Aid Worker Name Role Phone Newton Mendiola MD Primary Care Provider [phone] Jason Cade MD Unavailable [phone] Reason for Referral * Diagnostic Imaging (Routine) - Closed Specialty Diagnoses / Procedures Referred By Contac t Referred To Contact Diagnoses LV dysfunction LBBB (left bundle branch block) Palpitations Procedures Transthoracic Echo Complete W Doppler/CF Jason Cade MD Phone: tel: fax: [facility] Referral ID Status Reason Start Date Expiration Date Visits Re quested Visits Authorized [id number] Closed 12/29/2018 01/27/2019 1 1 * (Routine) - Closed Specialty Diagnoses / Procedures Referred By Nino t Referred To Contact Diagnoses LV dysfunction LBBB (left bundle branch block) Palpitations Procedures ECG 12 lead Jason Cade MD Phone: tel: fax: [facility] Referral ID Status Reason Start Date Expiration Date Visits Re quested Visits Authorized [id number] Closed 12/29/2018 07/09/2020 1 1 Reason for Visit * Reason Comments Follow-up Encounter Details Date Type Department Care Team (Late st Contact Info) Description 12/29/2018 10:40 AM CDT Office Visit [facility] Cardiology [address] [facility] [address] [place] [address] Jason Cade MD [address] [facility] [address] [place] [address] LV dysfunction (Primary Dx); LBBB (left bundle branch block); Palpitations Social History Tobacco Use Types Packs/Day Years Used Date Smoking Tobacco: Former Smokeless Tobacco: Never Alcohol Use Standard Drinks/Week Comments No 0 (1 standard drink = 0.6 oz pur e alcohol) Comments Unknown Sex and Gender Information Value Date Recorded Sex Assigned at Not on file 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 Gender Identity Not on file Sexual Orientation Not on file documented as of this encounter Last Filed Vital Signs Vital Sign Reading Time Taken Comments Blood Pressure 140/84 12/29/2018 10:42 AM CDT Pulse 84 12/29/2018 10:42 AM CDT Temperature - - Respiratory Rate - - Oxygen Saturation 97% 12/29/2018 10:42 AM CDT Inhaled Oxygen Concentration - - Weight 94.1 kg (207 lb 8 oz) 12/29/2018 10:42 AM CDT Height 162.6 cm (5' 4.02 ) 12/29/2018 10:42 AM C DT Body Mass Index 35.6 12/29/2018 10:42 AM CDT documented in this encounter Progress Notes * Jason Cade MD - 12/29/2018 12:00 AM CDT Date: 12/29/2018 Patient Name: MYLES SAUCEDA Date of : 1965 Date of Visit: 12/29/2018 INTERVAL HISTORY: Today, we are seeing Mrs. Cyndi Sauceda for evaluation of shortness of breath in the setting of LV dysfunction. This individual claims that she has been having increasing shortness of breath for the pastmonth. This occurs basically with any type of activity. It began a month ago and has been constant,and very limiting. She denies PND, orthopnea, palpitations, or dizzy spells. She did have a sleep study that was negative. ____. In addition, it should be pointed out that she got ciprofloxacin and then developed Achilles tendinitis as well, but this began after the shortness of breath. MEDICATIONS: 1. Aspirin 81 mg. 2. Losartan 25. 3. Metoprolol XL 25. PHYSICAL EXAM: VITAL SIGNS: The blood pressure is stable. NECK: There is no jugular venous distention with the patient at 45 degrees. The carotids are brisk and equal. CHEST: Clear. HEART: I cannot feel the apical impulse well, but it does appear to be slightly sustained. There are no significant murmurs. EXTREMITIES: There is no clubbing, cyanosis, or peripheral edema. All her distal pulses are intact. LABORATORY DATA: The EKG is pending. IMPRESSION: This individual has had progressive shortness of breath, etiology uncertain. It is occurring in thesetting of a left bundle branch block pattern. Physical exam is unremarkable. We last did a stress test a year ago, that was unremarkable as well. PLANS: In this setting, the plans are going to be: 1. Continue current therapy. 2. We are going to get an echocardiogram. 3. We are going to do blood work. 4. If all is negative, we are going to do an adenosine thallium. This patient did have known catheterization 2-1/2 years ago, and this was unremarkable. Further recommendations forthcoming. ELECTRONICALLY SIGNED - 01/24/2019 01:52 PM Jason Cade M.D., F.A.C.C. Professor, Medicine /wy cc: NEWTON MENDIOLA MD / TABLE OPERATOR documented in this encounter Plan of Treatment Scheduled Procedures Name Priority Associated Diagnoses Date/Ti me ESOPHAGOGASTRODUODENOSCOPY Nausea Colon cancer screening COLONOSCOPY Nausea Colon cancer screening documented as of this encounter Procedures Procedure Name Priority Date/Time Associated Diagnosis Comments TRANSTHORACIC ECHO (TTE) COMPLETE W DOPPLER/CF W CONTRAST Routine 12/29/2018 3:45 PM CDT LV dysfunction LBBB (left bundle branch block) Palpitations ECG 12-LEAD Routine 12/29/2018 LV dysfunction LBBB (left bundle branch block) Palpitations documented in this encounter Results * TRANSTHORACIC ECHO (TTE) COMPLETE W DOPPLER/CF W CONTRAST (12/29/2018 3:45 PM CDT) Anatomical Region Laterality Modality Ultrasound 12/29/2018 2:30 PM CDT Narrative 12/30/2018 1:00 PM CDT Patient name: Myles Sauceda Date of test: 12/29/2018 Type of test: TTE w/Doppler Hospital #: 0 Date of : 1965 (F) Thermal Cutting Machine Operator: Shena Salgado RDCS Referring Physician: JASON CADE MD Contrast Agent: 0.4 ml Optison Administered, (2.6 ml wasted). Contrast Administered by: Kaylee Terry RN Supervised/Interpreted by: Timoteo Caldwell MD Diagnosis: Location: [facility] Reason for test: LV dysfunction MV Structure: Normal, ?MV Motion: Normal, ?? [...] Variable ?2D Linear Normal ? Aotic Root: 2.7 cm ?<3.6 ? Ao Indexed: 1.4 cm/M2 <2.0 ? LA: ? <3.8 ? RV: ? 3.0 cm ?<4.2 ? LV(ED): ? 4.3 cm ?<5.3 ? LV(ES): ? 3.3 cm ?<3.5 ?2D Vol. ?? Normal ?Indexed ?? Indexed Normal RA: ? 26.0 ml ? 13.1 ml/M2 ?9-33 ? LA: ? 62.0 ml ? 31.2 ml/M2 ?16-34 ? RV: ? <11.6 ? LV(ED): ? 147.0 ml ??46-106 ?74.1 ml/M2 ?<62 ? LV(ES): ? 86.0 ml ?? 14-42 ? 43.3 ml/M2 ?<25 ?3D Vol. ? Indexed Normal LV(ED): ? 58.9 mL/m2 ?? <62 ? LV(ES): ? 34.8 mL/m2 ?? <24 ? LV EF: 41 % ?? (Normal: >=54%) ?? LV Mass Index (Area-Length): 0.5 g/m2 ?(Normal: 44-88 g/m2) Wall Motion Scoring (1=Normal 2=Hypo 3=Akinetic 4=Dyskin./Aneurysm 0=Not visualized) Parasternal Long [place]:MAS=2 BAS=2 MP=2 BP=2 Parasternal Short [place]:MAS=2 MS=2 IN=2 MP=2 ML=2 MA=2 Apical 4 Chambers:=2 MS=2 BS=2 BL=2 IN=2 AL=2 Apical 2 Chambers:AI=2 IN=2 BI=2 BA=2 MA=2 AA=2 LV Global Longitudinal Strain: -15.3% ??(Normal <-19%) RV Global Longitudinal Strain: LV Function: Mild to modGlobal reduction in LV Ejection Fraction (EF=41%) RV Function: Normal Septal Motion: paradoxic Pericardial Effusion: none seen Atrial Septum: Normal DOPPLER/COLOR FOLOW DOPPLER RESULTS: Diastolic Function: Grade I, altered [...] Vol.: ??ml/beat Regurg. Frac.: ??% PA Pressure: 25 mmHg DOPPLER/COLOR FOLOW DOPPLER COMMENTS: Mild AR, Mild MR, no , no MS, mild TV regurgitation, normal PV. Diastolic function: Grade I, altered relax. w/N. LA pres. CONTRAST: 0.4 ml Optison Administered, (2.6 ml wasted). SUMMARY: LV cavity size is moderately dilated. Moderate Global LV Systolic Dysfunction., with paradoxical septal motion related to LBBB; ??Mild to moderate reduction in LVEF 41-45%; ??Mild Aortic Regurgitation. Mild Tricuspid Regurgitation with normal estimated Pulmonary Artery Systolic Pressure. Grade I Diastolic LV dysfunction, characterized by altered relaxation with normal mean LA pressure. Mild Mitral Regurgitation. Reduced global LV Myocardial longitudinal function and LV strain pattern. Confirmed on ??12/30/2018 - 13:00:42 by Timoteo Caldwell MD By signing this report, the attending gore seamer certifies that he or she has personally supervised and interpreted the echocardiogram and has reviewed and or edited and agrees with the written comments contained within the report. Procedure Note Timoteo Caldwell MD - 12/30/2018 Patient name: Myles Sauceda Date of test: 12/29/2018 Type of test: TTE w/Doppler [facility] #: 0 Date of : 1965 (F) Thermal Cutting Machine Operator: Shena Salgado KEVIN Referring Physician: JASON CADE MD Contrast Agent: 0.4 ml Optison Administered, (2.6 ml wasted). Contrast Administered by: Kaylee Terry RN Supervised/Interpreted by: Timoteo Caldwell MD Diagnosis: Location: [facility] Reason for test: LV dysfunction MV Structure: Normal, MV Motion: Normal, Mitral Annulus: Normal AV Structure: tricuspid and is Normal, AV Motion: Normal Aotic root: Normal, TM: Normal, PV: Normal Valvular Vegetations: none seen, Mass/Thrombi: none seen RA: Normal Measurements: M-Mode Normal Aotic Root: <3.8 LA: <3.8 RV: <2.8 LV(ED): <5.7 LV(ES): Variable 2D Linear Normal Aotic Root: 2.7 cm <3.6 Ao Indexed: 1.4 cm/M2 <2.0 LA: <3.8 RV: 3.0 cm <4.2 LV(ED): 4.3 cm <5.3 LV(ES): 3.3 cm <3.5 2D Vol. Normal Indexed Indexed Normal RA: 26.0 ml 13.1 ml/M2 9-33 LA: 62.0 ml 31.2 ml/M2 16-34 RV: <11.6 LV(ED): 147.0 ml 46-106 74.1 ml/M2 <62 LV(ES): 86.0 ml 14-42 43.3 ml/M2 <25 3D Vol. Indexed Normal LV(ED): 58.9 mL/m2 <62 LV(ES): 34.8 mL/m2 <24 LV EF: 41 % (Normal: >=54%) LV Mass Index (Area-Length): 0.5 g/m2 (Normal: 44-88 g/m2) Wall Motion Scoring (1=Normal 2=Hypo 3=Akinetic 4=Dyskin./Aneurysm 0=Not visualized) Parasternal Long [place]:MAS=2 BAS=2 MP=2 BP=2 Parasternal Short [place]:MAS=2 MS=2 IN=2 MP=2 ML=2 MA=2 Apical 4 Chambers:=2 MS=2 BS=2 BL=2 IN=2 AL=2 Apical 2 Chambers:AI=2 IN=2 BI=2 BA=2 MA=2 AA=2 LV Global Longitudinal Strain: -15.3% (Normal <-19%) RV Global Longitudinal Strain: LV Function: Mild to modGlobal reduction in LV Ejection Fraction (EF=41%) RV Function: Normal Septal Motion: paradoxic Pericardial Effusion: none seen Atrial Septum: Normal DOPPLER/COLOR FOLOW DOPPLER RESULTS: Diastolic Function: Grade I, altered [...] Vol.: ml/beat Regurg. Frac.: % PA Pressure: 25 mmHg DOPPLER/COLOR FOLOW DOPPLER COMMENTS: Mild AR, Mild MR, no , no MS, mild TV regurgitation, normal PV. Diastolic function: Grade I, altered relax. w/N. LA pres. CONTRAST: 0.4 ml Optison Administered, (2.6 ml wasted). SUMMARY: LV cavity size is moderately dilated. Moderate Global LV Systolic Dysfunction., with paradoxical septal motion related to LBBB; Mild to moderate reduction in LVEF 41-45%; Mild Aortic Regurgitation. Mild Tricuspid Regurgitation with normal estimated Pulmonary Artery Systolic Pressure. Grade I Diastolic LV dysfunction, characterized by altered relaxation with normal mean LA pressure. Mild Mitral Regurgitation. Reduced global LV Myocardial longitudinal function and LV strain pattern. Confirmed on 12/30/2018 - 13:00:42 by Timoteo Caldwell MD By signing this report, the attending gore seamer certifies that he or she has personally supervised and interpreted the echocardiogram and has reviewed and or edited and agrees with the written comments contained within the report. us Jason Cade MD CV ECHO PROCEDURES Final Resu lt * Pro B-type natriuretic peptide (12/29/2018 12:40 PM CDT) NT-proBNP 79 <=300 pg/mL [facility] Comment: Interpretive Comments: A. Dyspnea in Acute [...] Last Revised Date: 2017. Blood specimen (specimen) 12/29/2018 12:40 PM CDT 12/29/2018 1:36 PM CDT us Jason Cade MD LAB BLOOD ORDERABLES Final Re sult [facility] [address] [place] [id number] * CBC with auto differential (12/29/2018 12:40 PM CDT) WBC 7.9 3.8 - 9.9 K/cumm [facility] Hgb 12.5 11.9 - 15.5 g/dL [facility] Hct 38.6 35.6 - 45.5 % [facility] Plt 387 150 - 400 K/cumm [facility] MPV 9.3 9.1 - 12.3 fL [facility] RBC 4.36 3.90 - 5.20 M/cumm [facility] MCV 88.5 81.3 - 96.4 fL [facility] MCH 28.7 27.1 - 33.3 pg [facility] MCHC 32.4 32.3 - 35.7 g/dL [facility] RDW CV 13.7 11.1 - 14.9 % [facility] RDW SD 44.4 35.7 - 48.1 fL [facility] NRBC abs 0.00 0.00 - 0.01 K/cumm [facility] Blood specimen (specimen) 12/29/2018 12:40 PM CDT 12/29/2018 1:36 PM CDT us Jason Cade MD LAB BLOOD ORDERABLES Final Re sult [facility] [address] [place] [id number] * Basic metabolic panel (12/29/2018 12:40 PM CDT) Pathologist [facility] Sodium 140 135 - 145 mmol/L [facility] Potassium, pl 4.0 3.3 - 4.9 mmol/L [facility] Chloride 103 97 - 110 mmol/L [facility] CO2 24 22 - 32 mmol/L [facility] Anion gap 13 2 - 15 mmol/L [facility] BUN 16 8 - 25 mg/dL [facility] Creatinine 0.70 0.60 - 1.10 mg/dL [facility] Glucose 114 70 - 199 mg/dL [facility] Comment: Interpretive Data Fasting glucose >/= [...] interpretive data was last revised 2017. Calcium 9.6 8.5 - 10.3 mg/dL [facility] Blood specimen (specimen) 12/29/2018 12:40 PM CDT 12/29/2018 1:36 PM CDT Jason Cade MD LAB BLOOD ORDERABLES Final Re [facility] Organization Address City/State/ZIP Co de Phone Number [facility] [address] [place] [address] * ECG 12 lead (12/29/2018) Jason Cade MD ECG ORDERABLES Edited Result - Final documented in this encounter Visit Diagnoses Diagnosis LV dysfunction- Primary Left heart failure LBBB (left bundle branch block) Other left bundle branch block Palpitations documented in this encounter Discontinued Medications Medication Sig Discontinue Reason Start Date End Da te losartan (COZAAR) 25 mg tablet Take 1 tablet (25 mg total) by mouth daily. 05/03/2018 12/29/2018 documented as of this encounter Care Teams Travelers' Aid Worker Relationship Specialty Start Date End Date Newton Mendiola MD [address] [address] PCP - General 06/09/16 Jason Cade MD [id number] [place] [address] Referring Physician Cardiology 12/07/18 documented as of this encounter
--- OUTSIDE RECORDS SUMMARY | 2024-03-18 05:02 | XMS_ITS | Encounter Summary ---
Author Organization [facility] Medical [facility] Address [address] [facility] [address] [place] [address] Care Team Providers Care Carton Marker Machine Name Role Phone Newton Mendiola MD Primary Care Provider [phone] Sly Cade MD Unavailable [phone] Reason for Visit * Reason Comments COVID-19 EVALUATION Patient has cough, S OB(heart failure), vomiting, sore throat and body aches for 2 days. She thinks she came in contact with someone with COVID but they were not tested. Encounter Details Date Type Department Care Team (Late st Contact Info) Description 07/08/2019 2:00 PM CDT Office Visit [facility] [address] [place] [address] Naman High MD [address] [place] [id number] Cough (Primary Dx); Chronic systolic congestive heart failure (CMS/HCC); Acute non-recurrent maxillary sinusitis Social History Tobacco Use Types Packs/Day Years Used Date Smoking Tobacco: Former Cigarettes Smokeless Tobacco: Never Alcohol Use Standard Drinks/Week Comments No 0 (1 standard drink = 0.6 oz pur e alcohol) Comments Unknown Sex and Gender Information Value Date Recorded Sex Assigned at Not on file 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 Gender Identity Not on file Sexual Orientation Not on file documented as of this encounter Last Filed Vital Signs Vital Sign Reading Time Taken Comments Blood Pressure 142/78 07/08/2019 2:07 PM CDT Pulse 100 07/08/2019 2:07 PM CDT left hand Temperature 35.9 ??C (96.7 ??F) 07/08/2019 2:06 PM CD T Respiratory Rate - - Oxygen Saturation 97% 07/08/2019 2:07 PM CDT left hand Inhaled Oxygen Concentration - - Weight 89.8 kg (198 lb) 07/08/2019 2:06 PM CDT Height 162.6 cm (5' 4 ) 07/08/2019 2:06 PM CDT Body Mass Index 33.99 07/08/2019 2:06 PM CDT documented in this encounter Ordered Prescriptions Prescription Sig Dispense Quantity Refills Last Filled Start Date End Date doxycycline (VIBRAMYCIN) 100 mg capsule Take 1 tablet/caps ule (100 mg total) by mouth 2 (two) times a day for 10 days 20 tablet/capsule 07/08/2019 07/18/2019 documented in this encounter Progress Notes * Naman High MD - 07/08/2019 2:00 PM CDT Images from the original [...] Complaint Patient presents with ??? COVID-19 EVALUATION Patient has cough, SOB(heart failure), vomiting, sore throat and body aches for 2 days. She thinks she came in contact with someone with COVID but they were not tested. HPI Patient presents to clinic for assessment of Chief Complaint Patient presents with ??? COVID-19 EVALUATION Patient has cough, SOB(heart failure), vomiting, sore throat and body aches for 2 days. She thinks she came in contact with someone with COVID but they were not tested. . Patient reports DRY COUGH, SHORTNESS OF BREATH, SINUS PRESSURE and EAR PAIN Patient reports this has been going on for 2 days. Patient with sick or suspected COVID-19 contacts: Yes Patient has following risks for COVID-19: Patient has congestive heart failure EF of 40-45%. Follows with Dr. Cade, cardiology. No sudden change in weight. No orthopnea, no swelling. Review of Systems Constitutional: Negative for activity change, fatigue and fever. HENT: Negative for postnasal drip and rhinorrhea. Respiratory: Negative for chest tightness, shortness of breath and wheezing. Cardiovascular: Negative for chest pain and leg swelling. Gastrointestinal: Negative for abdominal pain, blood in stool, constipation, diarrhea, nausea and vomiting. Genitourinary: Negative for dysuria, hematuria and urgency. Musculoskeletal: Positive for arthralgias. Negative for back pain, myalgias and neck pain. Skin: Negative for rash. Neurological: Negative for dizziness, tremors, weakness, light-headedness and headaches. Hematological: Negative for adenopathy. Psychiatric/Behavioral: Negative for sleep disturbance and suicidal ideas. Current Outpatient Medications Medication Sig Dispense Refill ??? aspirin 81 mg tablet daily. ??? azithromycin (ZITHROMAX) 250 mg tablet ??? buPROPion XL (WELLBUTRIN XL) 300 mg 24 hr tablet Take 300 mg by mouth daily. 3 ??? diclofenac DR (VOLTAREN) 50 mg EC tablet Take 50 mg by mouth 2 (two) times a day 0 ??? doxycycline (VIBRAMYCIN) 100 mg capsule Take 1 tablet/capsule (100 mg total) by mouth 2 (two) times a day for 10 days 20 tablet/capsule 0 ??? escitalopram (LEXAPRO) 5 mg tablet [...] MOUTH EVERY DAY 90 tablet 3 ??? omeprazole (PriLOSEC) 20 mg capsule Take 20 mg by mouth daily. ??? pantoprazole DR (PROTONIX) 40 mg EC tablet Take 40 mg by mouth daily. 2 ??? rizatriptan (MAXALT) 10 mg tablet TAKE 1 TABLET AT ONSET OF HEADACHE. MAY REPEAT EVERY 2 HOURS NEEDED. MAXIMUM 3 TABLETS IN 24 HOURS. Current Facility-Administered Medications Medication Dose Route Frequency [...] Types: Cigarettes Smokeless Tobacco Never Used Vitals: 07/08/19 1406 07/08/19 1407 BP: 142/78 BP Location: Right arm Patient Position: Sitting Pulse: 98 100 Temp: (!) 35.9 ??C (96.7 ??F) TempSrc: Tympanic SpO2: 99% 97% Weight: 89.8 kg (198 lb) Height: 162.6 cm (5' 4 ) Physical Exam Vitals signs reviewed. Constitutional: General: She is not in acute distress. HENT: Head: Salivary Glands: Right salivary gland is not tender. Left salivary gland is not tender. Right Ear: Tympanic membrane normal. No mastoid tenderness. Left Ear: Tympanic membrane normal. No mastoid tenderness. Nose: Right Sinus: Maxillary sinus tenderness present. Left Sinus: Maxillary sinus tenderness present. Mouth/Throat: Pharynx: Posterior oropharyngeal erythema present. No oropharyngeal exudate or uvula swelling. Eyes: General: No scleral icterus. Neck: Musculoskeletal: Neck supple. Vascular: No JVD. Cardiovascular: Rate and Rhythm: Normal rate and regular rhythm. Heart sounds: No murmur. Pulmonary: Effort: Pulmonary effort is normal. No respiratory distress. Breath sounds: Normal breath sounds. Abdominal: General: Bowel sounds are normal. Palpations: Abdomen is soft. Tenderness: There is no right CVA tenderness or left CVA tenderness. Musculoskeletal: Right lower leg: No edema. Left lower leg: No edema. Lymphadenopathy: Cervical: No cervical adenopathy. Skin: Findings: No erythema or rash. Neurological: Mental Status: She is alert and oriented to person, place, and time. Gait: Gait normal. Psychiatric: Thought Content: Thought content normal. Assessment/Plan Diagnoses and all orders for this visit: Cough (Primary) - COVID-19 Coronavirus RNA Oropharynx; Future Clinical symptoms with comorbidity of CHF requiring COVID testing. WIll monitor resopnse. Stable atthe present time. Chronic systolic congestive heart failure (CMS/HCC) Clinically euvolemic and will continue to follow and monitor response. Acute non-recurrent maxillary sinusitis Rx as above. Push fluids, relative rest. Reveiwed red flag s/s. Other orders - doxycycline (VIBRAMYCIN) 100 mg capsule; Take 1 tablet/capsule (100 mg total) by mouth 2 (two) times a day for 10 days Discussed COVID testing reasoning Orders Placed This Encounter Procedures ??? COVID-19 Coronavirus RNA Oropharynx Standing Status: Future Number of Occurrences: 1 Standing Expiration Date: 07/07/2020 Order Specific Question: Does the patient meet the testing requirements described in the process instructions above? Answer: Yes documented in this encounter Miscellaneous Notes * Result Encounter Note - Naman High MD - 07/09/2019 9:22 AM CDT LMOVM. Negative test. documented in this encounter Plan of Treatment Scheduled Procedures Name Priority Associated Diagnoses Date/Ti me ESOPHAGOGASTRODUODENOSCOPY Nausea Colon cancer screening COLONOSCOPY Nausea Colon cancer screening documented as of this encounter Procedures Procedure Name Priority Date/Time Associated Diagnosis Comments COVID-19 CORONAVIRUS RNA Routine 07/08/2019 2:22 PM CDT Cough documented in this encounter Results * COVID-19 Coronavirus RNA Oropharynx (07/08/2019 2:22 PM CDT) COVID-19 Coronavirus RNA NOT DETECTED NOT DETECTED [facility] [place] Comment: A Not Detected (negative) test result for this test means that SARS- CoV-2 RNA was not present in the specimen above the limit of detection. A negative result does not rule out the possibility of COVID-19 and should not be used as the sole basis for treatment or patient management decisions. ??If COVID-19 is still suspected, based on exposure history together with other clinical findings, re-testing should be considered in consultation with public health authorities. Laboratory test results should always be considered in the context of clinical observations and epidemiological data in making a final diagnosis and patient management decisions. Due to the current public health emergency, [facility] is receiving a high volume of samples from a wide variety of swabs and media for COVID-19 testing. In order to serve patients during this public health crisis, samples from appropriate clinical sources are being tested. Negative test results derived from specimens received in non-commercially manufactured viral collection and transport media, or in media and sample collection kits not yet authorized by FDA for COVID-19 testing should be cautiously evaluated and the patient potentially subjected to extra precautions such as additional clinical monitoring, including collection of an additional specimen. This test has been authorized by the FDA under an Emergency Use Authorization (EUA) for use by authorized laboratories. Methodology: ??Real-Time RT-PCR ?? Please review the Fact Sheets for health care providers, and patients and the FDA authorized labeling available on the [facility] website: www.[email or web address]/Covid19. Oropharynx 07/08/2019 2:22 PM CDT 07/09/2019 2:43 AM CDT Narrative Resulting Agency Comment Performing Organization Information: ?Site ID: [id number] ?Name: [facility] ?Address: [address] [address] ?Director: Stephen Walton D.O. MPH Naman High MD LAB MICROBIOLOGY - GENERA L ORDERABLES Final Result [facility] [place] documented in this encounter Visit Diagnoses Diagnosis Cough- Primary Chronic systolic congestive heart failure (CMS/HCC) (HCC) Acute non-recurrent maxillary sinusitis documented in this encounter Additional Health Concerns Infection Onset Date Last Indicated Resolved Time COVID: Suspected 07/08/2019 07/08/2019 07/10/2019 8:40 AM CDT documented as of this encounter Care Teams Carton Marker Machine Relationship Specialty Start Date End Date Newton Mendiola MD [address] [address] PCP - General 06/09/16 Sly Cade MD [address] [address] Referring Physician Cardiology 12/07/18 documented as of this encounter
--- OUTSIDE RECORDS SUMMARY | 2024-03-18 05:02 | XMS_ITS | Encounter Summary ---
Author Organization [facility] Address [address] [place] [address] Phone Care Team Providers Care Inspector Wire Products Name Role Phone Newton Mendiola MD Primary Care Provider [phone] Sly Cade MD Unavailable [phone] Encounter Details Date Type Department Care Team (Late st Contact Info) Description 06/13/2020 Orders Only [facility] Cardiology [facility] Medical Office Building [address] [place] [address] Maryann Benavidez RN Chest pain, unspecified type (Primary Dx) Social History Tobacco Use Types Packs/Day Years Used Date Smoking Tobacco: Former Cigarettes Smokeless Tobacco: Never Alcohol Use Standard Drinks/Week Comments No 0 (1 standard drink = 0.6 oz pur e alcohol) Comments No Sex and Gender Information Value Date Recorded Sex Assigned at Not on file 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 Gender Identity Not on file Sexual Orientation Not on file documented as of this encounter Plan of Treatment Scheduled Procedures Name Priority Associated Diagnoses Date/Ti me ESOPHAGOGASTRODUODENOSCOPY Nausea Colon cancer screening COLONOSCOPY Nausea Colon cancer screening documented as of this encounter Visit Diagnoses Diagnosis Chest pain, unspecified type- Primary documented in this encounter Orders Lab Orders Without Results Count Last Ordered D ate First Ordered Date BASIC METABOLIC PANEL 1 06/13/2020 documented in this encounter Care Teams Inspector Wire Products Relationship Specialty Start Date End Date Newton Mendiola MD [address] [facility] [address] [place] [address] PCP - General 06/09/16 Sly Cade MD [address] [address] Referring Physician Cardiology 12/07/18 documented as of this encounter
--- OUTSIDE RECORDS SUMMARY | 2024-03-18 05:02 | XMS_ITS | Encounter Summary ---
Author Organization [facility] Address [address] [place] [address] Care Team Providers Care Breaker Operator Name Role Phone Newton Mendiola MD Primary Care Provider [phone] Sly Cade MD Unavailable [phone] Encounter Details Date Type Department Care Team (Late st Contact Info) Description 12/29/2018 12:20 PM CDT Lab [facility] [address] [place] [place] [address] Sly Cade MD [address] [place], [place] [id number] LV dysfunction; LBBB (left bundle branch block); Palpitations Discharge Disposition: Discharge to home or self care Social History Tobacco Use Types Packs/Day Years Used Date Smoking Tobacco: Former Smokeless Tobacco: Never Alcohol Use Standard Drinks/Week Comments No 0 (1 standard drink = 0.6 oz pur e alcohol) Comments Unknown Sex and Gender Information Value Date Recorded Sex Assigned at Not on file 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 Gender Identity Not on file Sexual [...] Name Priority Date/Time Associated Diagnosis Comments EGFR Routine 12/29/2018 12:40 PM CDT LV dysfunction LBBB (left bundle branch block) Palpitations DIFFERENTIAL AUTO Routine 12/29/2018 12: 40 PM CDT LV dysfunction LBBB (left bundle branch block) Palpitations PRO B-TYPE NATRIURETIC PEPTIDE Routine 12/29/2018 12:40 PM CDT LV dysfunction LBBB (left bundle branch block) Palpitations CBC WITH AUTO DIFFERENTIAL Routine 12/29/2018 12:40 PM CDT LV dysfunction LBBB (left bundle branch block) Palpitations BASIC METABOLIC PANEL Routine 12/29/2018 12:40 PM CDT LV dysfunction LBBB (left bundle branch block) Palpitations documented in this encounter Results * eGFR (12/29/2018 12:40 PM CDT) eGFR >60 mL/min/1.7 3 m2 [facility] Comment: Interpretive Data Reference Interval Normal ?>/= 90 mL/min/1.73m2 Mildly decreased* ? 60 - 89 mL/min/1.73m2 Mildly to moderately decreased ?45 - 59 mL/min/1.73m2 Moderately to severely decreased ??30 - 44 mL/min/1.73m2 Severely decreased ?15 - 29 mL/min/1.73m2 Kidney Failure ?< 15 ??mL/min/1.73m2 *Relative to young adult level If -Belgian multiply value by 1.16. Estimated glomerular filtration rate is determined by [...] 70. Current interpretive data was last reviewed 2015. Blood specimen (specimen) 12/29/2018 12:40 PM CDT 12/29/2018 1:36 PM CDT us Sly Cade MD LAB BLOOD ORDERABLES Final Re sult [facility] [address] [address] [place] [address] * Differential, auto (12/29/2018 12:40 PM CDT) Neutrophil abs 4.7 1.7 - 6.5 K/cumm [facility] Imm gran abs 0.0 0.0 - 0.1 K/cumm [facility] Lymphocyte abs 2.4 0.8 - 3.3 K/cumm [facility] Monocyte abs 0.7 0.2 - 0.8 K/cumm [facility] Eosinophil abs 0.1 0.0 - 0.5 K/cumm [facility] Basophil abs 0.0 0.0 - 0.1 K/cumm [facility] Neutrophil pct 59.6 % [facility] Comment: Interpretive Data Percent cell count reference ranges are not reported, since discordance with absolute values may lead to misinterpretation of CBC data. Current Interpretive Data was last revised on 2017. Imm gran pct 0.3 % [facility] Comment: Interpretive Data Percent cell count reference ranges are not reported, since discordance with absolute values may lead to misinterpretation of CBC data. Current Interpretive Data was last revised on 2017. Lymphocyte pct 30.1 % [facility] Comment: Interpretive Data Percent cell count reference ranges are not reported, since discordance with absolute values may lead to misinterpretation of CBC data. Current Interpretive Data was last revised on 2017. Monocyte pct 8.5 % [facility] Comment: Interpretive Data Percent cell count reference ranges are not reported, since discordance with absolute values may lead to misinterpretation of CBC data. Current Interpretive Data was last revised on 2017. Eosinophil pct 1.0 % [facility] Comment: Interpretive Data Percent cell count reference ranges are not reported, since discordance with absolute values may lead to misinterpretation of CBC data. Current Interpretive Data was last revised on 2017. Basophil pct 0.5 % [facility] Comment: Interpretive Data Percent cell count reference ranges are not reported, since discordance with absolute values may lead to misinterpretation of CBC data. Current Interpretive Data was last revised on 2017. Blood specimen (specimen) 12/29/2018 12:40 PM CDT 12/29/2018 1:36 PM CDT us Sly Cade MD LAB BLOOD ORDERABLES Final Re sult [facility] [address] [facility] [address] [place] [address] * Basic metabolic panel (12/29/2018 12:40 PM CDT) Sodium 140 135 - 145 mmol/L [facility] Potassium, pl 4.0 3.3 - 4.9 mmol/L [facility] Chloride 103 97 - 110 mmol/L [facility] CO2 24 22 - 32 mmol/L [facility] Anion gap 13 2 - 15 mmol/L [facility] BUN 16 8 - 25 mg/dL [facility] Creatinine 0.70 0.60 - 1.10 mg/dL [facility] Glucose 114 70 - 199 mg/dL [facility] Comment: Interpretive Data Fasting glucose >/= 126 [...] 2017. Calcium 9.6 8.5 - 10.3 mg/dL [facility] Blood specimen (specimen) 12/29/2018 12:40 PM CDT 12/29/2018 1:36 PM CDT Sly Cade MD LAB BLOOD ORDERABLES Final Re sult [facility] [address] [place] [address] * CBC with auto differential (12/29/2018 12:40 PM CDT) WBC 7.9 3.8 - 9.9 K/cumm [facility] Hgb 12.5 11.9 - 15.5 g/dL [facility] Hct 38.6 35.6 - 45.5 % [facility] Plt 387 150 - 400 K/cumm [facility] MPV 9.3 9.1 - 12.3 fL [facility] RBC 4.36 3.90 - 5.20 M/cumm [facility] MCV 88.5 81.3 - 96.4 fL [facility] MCH 28.7 27.1 - 33.3 pg [facility] MCHC 32.4 32.3 - 35.7 g/dL [facility] RDW CV 13.7 11.1 - 14.9 % [facility] RDW SD 44.4 35.7 - 48.1 fL [facility] NRBC abs 0.00 0.00 - 0.01 K/cumm [facility] Blood specimen (specimen) 12/29/2018 12:40 PM CDT 12/29/2018 1:36 PM CDT Sly Cade MD LAB BLOOD ORDERABLES Final Re sult [facility] [address] [address] [place] [id number] * Pro B-type natriuretic peptide (12/29/2018 12:40 PM CDT) NT-proBNP 79 <=300 pg/mL [facility] Comment: Interpretive Comments: A. Dyspnea in Acute [...] Heart J. 2006:27:330-337. 2. Andre RW, Kaushal AM. J. AM Hector Cardiol: Cardiovasc Imag. 2009;2: 216- 225. Interpretive Data Last Revised Date: 2017. Blood specimen (specimen) 12/29/2018 12:40 PM CDT 12/29/2018 1:36 PM CDT Sly Cade MD LAB BLOOD ORDERABLES Final Re sult Performing Organization Address City/State/[facility] Co de Phone Number [facility] [address] [place] [address] documented in this encounter Visit Diagnoses Diagnosis LV dysfunction Left heart failure LBBB (left bundle branch block) Other left bundle branch block Palpitations documented in this encounter Care Teams Breaker Operator Relationship Specialty Start Date End Date Newton Mendiola MD [address] [place] [address] PCP - General 06/09/16 Sly Cade MD [address] [place] [address] Referring Physician Cardiology 12/07/18 documented as of this encounter
--- OUTSIDE RECORDS SUMMARY | 2024-03-18 05:02 | XMS_ITS | Encounter Summary ---
Author Organization [facility] Address [address] [place] [address] Phone Care Team Providers Care Contract Writer Name Role Phone Newton Mendiola MD Primary Care Provider [phone] Sly Cade MD Unavailable [phone] Reason for Referral * Diagnostic Imaging (Routine) - Closed Specialty Diagnoses / Procedures Referred By Nino fletcher Referred To Contact Radiology Diagnoses LV dysfunction LBBB (left bundle branch block) Procedures MRI Cardiac M&F W WO Contrast Sly Cade MD Phone: tel: fax: [address] [address] Referral ID Status Reason Start Date Expiration Date Visits Re quested Visits Authorized [id number] Closed 01/03/2019 07/14/2020 1 1 Encounter Details Date Type Department Care Team (Late st Contact Info) Description 12/31/2018 Telephone [facility] Cardiology [facility] Medical Office Building [address] [place] [address] Sly Cade MD [address] [place] [address] [address] [place] [address] Social History Tobacco Use Types Packs/Day Years Used Date Smoking Tobacco: Former Smokeless Tobacco: Never Alcohol Use Standard Drinks/Week Comments No 0 (1 standard drink = 0.6 oz pur e alcohol) Comments Unknown Sex and Gender Information Value Date Recorded Sex Assigned at Not on file 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 Patient is aware of appointment date, time, location, and/or prep for test. * Telephone Encounter - Odalis Monroe RN - 01/03/2019 2:24 PM CDT Spoke with pt she verbalized understanding. Pharmacy notified. * Telephone Encounter - Odalis Monroe RN - 12/31/2018 2:21 PM CDT Called pt to discuss lmor * Telephone Encounter - Odalis Monroe RN - 12/31/2018 2:21 PM CDT ----- Message from Sly Cade MD sent at 12/30/2018 6:30 PM CDT ----- Losartan 50mg Get cardiac kain documented in this encounter Plan of Treatment Scheduled Procedures Name Priority Associated Diagnoses Date/Ti me ESOPHAGOGASTRODUODENOSCOPY Nausea Colon cancer screening COLONOSCOPY Nausea Colon cancer screening documented as of this encounter Results * MRI Cardiac M&F W WO Contrast (01/20/2019 7:50 PM HIDES AND SKINS COLORER) Anatomical Region Laterality Modality Body N/A Magnetic Resonan ce 01/21/2019 9:49 AM HIDES AND SKINS COLORER Impressions 01/21/2019 3:12 PM HIDES AND SKINS COLORER Globally reduced left ventricular function (LVEF of 44%) with focal mild reduced function of the septal wall likely secondary to left bundle branch block. No delayed contrast enhancement to suggest infiltrative cardiomyopathy. Dictated by: Tish Smith M.D. The radiology attending physician has personally reviewed this study, and had reviewed and/or edited this written report and agrees with it. Electronically signed by: Vinny Leone M.D. Narrative 01/21/2019 3:12 PM HIDES AND SKINS COLORER EXAMINATION: ??MRI CARDIAC M/T/FUNC W WO CONTRAST HISTORY: ??Cardiomyopathy infiltrative suspected TECHNIQUE: ??Multiplanar magnetic resonance imaging (MRI) of the heart with ultrafast spin echo and balanced steady state free precession sequences was performed before and after contrast administration, according to a custom monitored protocol. This examination included dedicated phase contrast sequences and post processing for flow velocities. ??3-D postprocessing was subsequently ??performed on a dedicated 3-D workstation. 18 mL of MultiHANCE contrast was administered during this examination. COMPARISON: ??None available FINDINGS: Three-vessel left aortic arch. There is paradoxical and dyssynchronous septal motion secondary to left bundle branch block. The atria are normal in size. The right ventricle is normal in size. There is no substantial right ventricular hypertrophy, with normal systolic function. The left ventricle is normal in size. Left ventricular systolic function is mildly reduced. Global left ventricular wall motion abnormality with no focal wall motion abnormality. Qualitatively, there is mild mitral valve regurgitation and trivial tricuspid valve regurgitation. There is no pulmonic regurgitation. The aortic valve morphology is normal. There is no aortic stenosis and mild aortic regurgitation. Phase sensitive inversion recovery images were obtained for evaluation of late myocardial enhancement. Delayed postcontrast images demonstrate no late gadolinium enhancement of the myocardium. Left ventricle: Ejection Fraction: ??44% End diastolic volume: ??128 mL (62.4 mL/m2, indexed) End systolic volume: ??71 mL (34 mL/m2, indexed) Stroke volume: ??57 mL (27 mL/m2, indexed) Cardiac output: ??5.1 L/min Cardiac index: ??2.5 L/min/m2 Right ventricle: Ejection Fraction: ??63% End diastolic volume: ??81 mL (39 mL/m2, indexed) End systolic volume: ??30 mL (14.6 mL/m2, indexed) Stroke volume: ??51 mL (25 mL/m2, indexed) Cardiac output: ??4.6 L/min Cardiac index: ??2.3 L/min/m2 Flow Quantification: Aorta above valve (HR 87 bpm) Peak velocity: ??108 m/sec Peak pressure gradient: ??4.7 mmHg Fwd flow: ??59 mL (5.2 L/min) Rev flow: ??0 mL Net flow: ?? 59 mL (5.2 L/min) Regurgitant fraction: ??0% Visually there is mild aortic regurgitation. Pulmonary artery above valve (HR 87 bpm) Peak velocity: ??96 ??m/sec Peak pressure gradient: ??3.7 mmHg Fwd flow: ??60 mL (5.2 L/min) Rev flow: ??0 mL Net flow: ?? 60 mL (5.2 L/min) Regurgitant fraction: ??0% Procedure Note Vinny Leone MD - 01/21/2019 EXAMINATION: MRI CARDIAC M/T/FUNC W WO CONTRAST HISTORY: Cardiomyopathy infiltrative suspected TECHNIQUE: Multiplanar magnetic resonance imaging (MRI) of the heart with ultrafast spin echo and balanced steady state free precession sequences was performed before and after contrast administration, according to a custom monitored protocol. This examination included dedicated phase contrast sequences and post processing for flow velocities. 3-D postprocessing was subsequently performed on a dedicated 3-D workstation. 18 mL of MultiHANCE contrast was administered during this examination. COMPARISON: None available FINDINGS: Three-vessel left aortic arch. There is paradoxical and dyssynchronous septal motion secondary to left bundle branch block. The atria are normal in size. The right ventricle is normal in size. There is no substantial right ventricular hypertrophy, with normal systolic function. The left ventricle is normal in size. Left ventricular systolic function is mildly reduced. Global left ventricular wall motion abnormality with no focal wall motion abnormality. Qualitatively, there is mild mitral valve regurgitation and trivial tricuspid valve regurgitation. There is no pulmonic regurgitation. The aortic valve morphology is normal. There is no aortic stenosis and mild aortic regurgitation. Phase sensitive inversion recovery images were obtained for evaluation of late myocardial enhancement. Delayed postcontrast images demonstrate no late gadolinium enhancement of the myocardium. Left ventricle: Ejection Fraction: 44% End diastolic volume: 128 mL (62.4 mL/m2, indexed) End systolic volume: 71 mL (34 mL/m2, indexed) Stroke volume: 57 mL (27 mL/m2, indexed) Cardiac output: 5.1 L/min Cardiac index: 2.5 L/min/m2 Right ventricle: Ejection Fraction: 63% End diastolic volume: 81 mL (39 mL/m2, indexed) End systolic volume: 30 mL (14.6 mL/m2, indexed) Stroke volume: 51 mL (25 mL/m2, indexed) Cardiac output: 4.6 L/min Cardiac index: 2.3 L/min/m2 Flow Quantification: Aorta above valve (HR 87 bpm) Peak velocity: 108 m/sec Peak pressure gradient: 4.7 mmHg Fwd flow: 59 mL (5.2 L/min) Rev flow: 0 mL Net flow: 59 mL (5.2 L/min) Regurgitant fraction: 0% Visually there is mild aortic regurgitation. Pulmonary artery above valve (HR 87 bpm) Peak velocity: 96 m/sec Peak pressure gradient: 3.7 mmHg Fwd flow: 60 mL (5.2 L/min) Rev flow: 0 mL Net flow: 60 mL (5.2 L/min) Regurgitant fraction: 0% IMPRESSION: Globally reduced left ventricular function (LVEF of 44%) with focal mild reduced function of the septal wall likely secondary to left bundle branch block. No delayed contrast enhancement to suggest infiltrative cardiomyopathy. Dictated by: Tish Smith M.D. The radiology attending physician has personally reviewed this study, and had reviewed and/or edited this written report and agrees with it. Electronically signed by: Vinny Leone M.D. Sly Cade MD IMPeter MRI PROCEDURES Final Resu lt documented in this encounter Visit Diagnoses Diagnosis LV dysfunction- Primary Left heart failure LBBB (left bundle branch block) Other left bundle branch block LV dysfunction Left heart failure LBBB (left bundle branch block) Other left bundle branch block documented in this encounter Care Teams Contract Writer Relationship Specialty Start Date End Date Newton Mendiola MD [address] [address] PCP - General 06/09/16 Sly Cade MD [address] [address] Referring Physician Cardiology 12/07/18 documented as of this encounter
--- OUTSIDE RECORDS SUMMARY | 2024-03-18 05:02 | XMS_ITS | Encounter Summary ---
Author Organization [facility] Address [address] [place] [address] Phone Care Team Providers Care Storage Battery Tester Name Role Phone Newton Mendiola MD Primary Care Provider [phone] Sly Cade MD Unavailable [phone] Reason for Referral * Cardiology (Routine) - Closed Specialty Diagnoses / Procedures Referred By Contkira t Referred To Contact Diagnoses NICM (nonischemic cardiomyopathy) (CMS/HCC) (HCC) Procedures Transthoracic Echo Complete W Doppler/CF Billie Padron MD Phone: tel: fax: [facility] Referral ID Status Reason Start Date Expiration Date Visits Re quested Visits Authorized [id number] Closed 02/23/2020 03/23/2020 1 1 E ROOFER Encounter Details Date Type Department Care Team (Late st Contact Info) Description 02/23/2020 9:00 AM SLATE ROOFER Office Visit [facility] Cardiology [address] [place] [address] Medical Office Building [address] [place] [address] Billie Padron MD [address] [place] [address] [address] [place] [address] LBBB (left bundle branch block) (Primary Dx); NICM (nonischemic cardiomyopathy) (CMS/HCC); Hodgkin lymphoma, unspecified Hodgkin lymphoma type, unspecified body region (CMS/[facility]) Social History Tobacco Use Types Packs/Day Years Used Date Smoking Tobacco: Former Cigarettes Smokeless Tobacco: Never Alcohol Use Standard Drinks/Week Comments No 0 (1 standard drink = 0.6 oz pur e alcohol) Comments Unknown Sex and Gender Information Value Date Recorded Sex Assigned at Not on file Legal Sex Female 7:55 AM SLATE ROOFER Gender Identity Not on file Sexual Orientation Not on file documented as of this encounter Last Filed Vital Signs Vital Sign Reading Time Taken Comments Blood Pressure 138/76 02/23/2020 9:04 AM SLATE ROOFER Pulse 85 02/23/2020 9:04 AM SLATE ROOFER Temperature 35.9 ??C (96.6 ??F) 02/23/2020 9:04 AM CS T Respiratory Rate - - Oxygen Saturation 98% 02/23/2020 9:04 AM SLATE ROOFER Inhaled Oxygen Concentration - - Weight 91.2 kg (201 lb 1.9 oz) 02/23/2020 9:04 A M SLATE ROOFER Height 162.6 cm (5' 4 ) 02/23/2020 9:04 AM SLATE ROOFER Body Mass Index 34.52 02/23/2020 9:04 AM SLATE ROOFER documented in this encounter Patient Instructions * Patient Instructions* Billie Padron MD - 02/23/2020 9:00 AM SLATE ROOFER Per our conversation today, I would look into the [employer] EKG system as this will allow you to obtain some instant feedback on your heart rhythm and can always send me the PDFs on [employer]. We will get an echocardiogram to see if your heart function has changed in the last few months. E ROOFER E ROOFER documented in this encounter Ordered Prescriptions Prescription Sig Dispense Quantity Refills Last Filled Start Date End Date metoprolol XL (TOPROL-XL) 50 mg extended release tablet Take 1 tablet (50 mg total) by mouth daily 90 tablet 3 02/23/2020 05/28/2020 isosorbide mononitrate ER (IMDUR) 30 mg 24 hr tablet Take 1 tablet (30 mg total) by mouth daily 30 tablet 5 02/23/2020 08/20/2020 losartan (COZAAR) 50 mg tablet Take 1 tablet (50 mg total) by mouth daily 90 tablet 3 02/23/2020 05/06/2021 documented in this encounter Progress Notes * Billie Padron MD - 02/23/2020 9:00 AM CST Images from the original note were not included. Cardiology Return Clinic Visit Visit Date: 02/23/20 Patient Diagnosis List 1. NICM a. Informed of LBBB during pre-op EKG years ago , then [facility] demonstrating no angiographically significant CAD b. [...] at the [facility] in [place]. As you recall, she is a pleasant 55 y.o. female that we follow for non-ischemic cardiomyopathy. Patient was previously followed by Dr. Cade but has been referred to myself for subsequent in-person evaluation. Over the past few weeks, she has had progressive dyspnea on mild exertion as wellas fatigue and intermittent episodes of palpitations. She states her palpitations have been ongoingfor the past few years and all rhythm monitor have not documented any arrhythmias. Patient does notendorse any orthopnea, PND, lower extremity swelling. 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 Otherwise, she is not endorse any angina, chest tightness, presyncope, or syncope. She does not check her blood pressures at home. ROS: As her HPI, otherwise 12 point review of systems reviewed and negative Objective CV Medications Aspirin 81 mg Imdur 30 mg Losartan 50 mg Metoprolol XL 50 mg Vitals & Physical Exam HR: 85 BP: 138/76 Weight: 201 lbs GEN: pleasant female in NAD; alert, [...] 159, HDL 31, LDL 99, TG 145 Assessment Recommendations #Non-Ischemic Cardiomyopathy + HFmrEF Patient well compensated and euvolemic on exam with NYHA II symptoms. With recent decline in functional status, unclear if she has had worsening of her ejection fraction or other structural changes to her heart in the setting of her prior chest radiation. 1 Will plan on repeating an echocardiogram when next available. Further recommendations to follow 2 continue losartan 50 mg + metoprolol XL 50 in the interim. 3 pending above, she may benefit from a CPET to obtain a better evaluation of her limitations. #Palpitations Unclear etiology of her symptoms and she has had multiple rhythm monitor have not demonstrated any known arrhythmias. I advised her to obtain a [employer] ECG monitor. With this, she can obtain their own rhythm strips when she has symptoms; these can then be sent to me through [employer]. Thank you for the opportunity to participate in the care of this wonderful patient. We will plan onseeing them back in 3 months time. Please do not hesitate to contact us with any questions or concerns that may arise in the interim. Billie Padron MD on 02/23/2020 at 9:06 AM Asphalt Paving Foremanassembler finger buffs (Cardiology) E ROOFER documented in this encounter Plan of Treatment Scheduled Procedures Name Priority Associated Diagnoses Date/Ti me ESOPHAGOGASTRODUODENOSCOPY Nausea Colon cancer screening COLONOSCOPY Nausea Colon cancer screening documented as of this encounter Results * TRANSTHORACIC ECHO (TTE) COMPLETE W DOPPLER/CF W CONTRAST (03/02/2020 2:44 PM SLATE ROOFER) Anatomical Region Laterality Modality Ultrasound 03/02/2020 2:00 PM SLATE ROOFER Narrative 03/02/2020 4:31 PM SLATE ROOFER Patient name: Katy Sauceda Date of test: 03/02/2020 Type of test: TTE w/Doppler [facility] #: [id number] Date of : 1965 (F) Chemistry Laboratory Technician: Kuusm Rivas KEVIN Referring Physician: BILLIE PADRON MD Contrast Agent: 0.4 ml Optison Administered, (2.6 ml wasted). Contrast Administered by: Paris Snell RN Supervised/Interpreted by: Kathy Costello MD Diagnosis: Location: [facility] Reason for test: NIC MV Structure: Normal, ?MV Motion: Normal, ?? [...] 2=Hypo 3=Akinetic 4=Dyskin./Aneurysm 0=Not visualized) Parasternal Long Aurora:MAS=2 BAS=2 MIL=2 KAYLEY=2 Parasternal Short Aurora:MAS=2 MIS=2 VT=2 MIL=2 MAL=2 MA=2 Apical 4 Chambers:=2 MIS=2 BIS=2 BAL=2 MAL=2 AL=2 AC=2 Apical 2 Chambers:AI=2 VT=2 BI=2 BA=2 MA=2 AA=2 AC=2 LV Global [...] MD By signing this report, the attending executive account manager certifies that he or she has personally supervised and interpreted the echocardiogram and has reviewed and or edited and agrees with the written comments contained within the report. Procedure Note Kathy Costello MD - 03/02/2020 Patient name: Katy Sauceda Date of test: 03/02/2020 Type of test: TTE w/Doppler [facility] #: [id number] Date of : 1965 (F) Chemistry Laboratory Technician: Kusum Rivas KEVIN Referring Physician: BILLIE PADRON MD Contrast Agent: 0.4 ml Optison Administered, (2.6 ml wasted). Contrast Administered by: Paris Snell RN Supervised/Interpreted by: Kathy Costello MD Diagnosis: Location: [facility] Reason for test: NICM MV Structure: [...] 2=Hypo 3=Akinetic 4=Dyskin./Aneurysm 0=Not visualized) Parasternal Long Aurora:MAS=2 BAS=2 MIL=2 KAYLEY=2 Parasternal Short Aurora:MAS=2 MIS=2 VT=2 MIL=2 MAL=2 MA=2 Apical 4 Chambers:=2 MIS=2 BIS=2 BAL=2 MAL=2 AL=2 AC=2 Apical 2 Chambers:AI=2 VT=2 BI=2 BA=2 MA=2 AA=2 AC=2 LV Global [...] MD By signing this report, the attending executive account manager certifies that he or she has personally supervised and interpreted the echocardiogram and has reviewed and or edited and agrees with the written comments contained within the report. Billie Padron MD CV ECHO PROCEDURES Final R esult documented in this encounter Visit Diagnoses Diagnosis LBBB (left bundle branch block)- Primary Other left bundle branch block NICM (nonischemic cardiomyopathy) (CMS/HCC) (HCC) Hodgkin lymphoma, unspecified Hodgkin lymphoma type, unspecified body region (HCC) NICM (nonischemic cardiomyopathy) (CMS/HCC) (HCC) documented in this encounter Discontinued Medications Medication Sig Discontinue Reason Start Date End Da te acyclovir (ZOVIRAZ) 5 % cream 09/13/2018 02/23/2020 aspirin-calcium carbonate 81 mg-300 mg calcium(777 mg) tablet Take 81 mg by mouth daily 02/23/2020 doxycycline 100 mg tablet TAKE 1 TABLET BY MOUTH TWICE A DAY FOR 10 DAYS 02/10/2020 02/23/2020 omeprazole (PriLOSEC) 20 mg capsule Take 20 mg by mouth daily. 02/23/2020 isosorbide mononitrate ER (IMDUR) 30 mg 24 hr tablet TAKE 1 TABLET BY MOUTH EVERY DAY Reorder 03/25/2018 02/23/2020 losartan (COZAAR) 50 mg tablet TAKE 1 TABLET BY MOUTH EVERY DAY Reorder 04/11/2019 02/23/2020 metoprolol XL (TOPROL-XL) 50 mg extended release tablet TAKE 1 TABLET BY MOUTH EVERY DAY Reorder 06/22/2019 02/23/2020 documented as of this encounter Historical Medications * This list may reflect changes made after this encounter. doxycycline 100 mg tablet TAKE 1 TABLET BY MOUTH TWICE A DAY FOR 10 DAYS 02/10/2020 02/23/2020 aspirin-calcium carbonate 81 mg-300 mg calcium(777 mg) tablet Take 81 mg by mouth daily 02/23/2020 acyclovir (ZOVIRAZ) 5 % cream 09/13/2018 02/23/2020 added in this encounter Care Teams Storage Battery Tester Relationship Specialty Start Date End Date Newton Mendiola MD [address] [address] PCP - General 06/09/16 Sly Cade MD [address] [address] Referring Physician Cardiology 12/07/18 documented as of this encounter
--- OUTSIDE RECORDS SUMMARY | 2024-03-18 05:02 | XMS_ITS | Encounter Summary ---
Author Organization [facility] Address [address] [place] [address] Phone Care Team Providers Care Dental Technology Advisor Name Role Phone Newton Mendiola MD Primary Care Provider [phone] Sly Cade MD Unavailable [phone] Reason for Visit * Cardiology (Routine) - Closed Specialty Diagnoses / Procedures Referred By Contac t Referred To Contact Diagnoses NICM (nonischemic cardiomyopathy) (CMS/HCC) ([facility]) Procedures Transthoracic Echo Complete W Doppler/CF Billie Padron MD Phone: tel: fax: [facility] Referral ID Status Reason Start Date Expiration Date Visits Re quested Visits Authorized [id number] Closed 12/04/2020 01/03/2022 1 1 Encounter Details Date Type Department Care Team (Latest Contact Info) Description 12/10/2020 8:30 AM CDT Ancillary Procedure [facility] [address] [place] [address] Billie Padron MD [address] [place] [address] NICM (nonischemic cardiomyopathy) (CMS/HCC) ([facility]) Social History Tobacco Use Types Packs/Day Years Used Date Smoking Tobacco: Former Cigarettes 0.5 10 1 990 - 2000 Smokeless Tobacco: Never Alcohol Use Standard Drinks/Week Comments No 0 (1 standard drink = 0.6 oz pur e alcohol) Comments No Sex and Gender Information Value Date Recorded Sex Assigned at Not on file 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 Gender Identity Not on file Sexual Orientation Not on file documented as of this encounter Plan of Treatment Scheduled Procedures Name Priority Associated Diagnoses Date/Ti me ESOPHAGOGASTRODUODENOSCOPY Nausea Colon cancer screening COLONOSCOPY Nausea Colon cancer screening documented as of this encounter Procedures Procedure Name Priority Date/Time Associated Diagnosis Comments TRANSTHORACIC ECHO (TTE) COMPLETE W DOPPLER/CF W CONTRAST Routine 12/10/2020 9:22 AM CDT NICM (nonischemic cardiomyopathy) (CMS/HCC) (HCC) documented in this encounter Results * TRANSTHORACIC ECHO (TTE) COMPLETE W DOPPLER/CF W CONTRAST (12/10/2020 9:22 AM CDT) Anatomical Region Laterality Modality Ultrasound 12/10/2020 8:30 AM CDT Narrative 12/10/2020 11:58 AM CDT Patient name: Katy Sauceda Date of test: 12/10/2020 Type of test: TTE w/Doppler [facility] #: [id number] Date of : 1965 (F) Copy Supervisor: SON Samuel Referring Physician: BILLIE PADRON MD Contrast Agent: [...] 2=Hypo 3=Akinetic 4=Dyskin./Aneurysm 0=Not visualized) Parasternal Long [place]:MAS=2 BAS=2 MIL=2 KAYLEY=2 Parasternal Short [place]:MAS=2 MIS=2 PA=2 MIL=2 MAL=2 MA=2 Apical 4 [...] MD By signing this report, the attending certified retinal angiographer certifies that he or she has personally supervised and interpreted the echocardiogram and has reviewed and or edited and agrees with the written comments contained within the report. Procedure Note Timoteo Caldwell MD - 12/11/2020 Patient name: Katy Sauceda Date of test: 12/10/2020 Type of test: TTE /[facility] #: [id number] Date of : 1965 (F) Copy Supervisor: SON Samuel Referring Physician: BILLIE PADRON MD Contrast Agent: [...] 2=Hypo 3=Akinetic 4=Dyskin./Aneurysm 0=Not visualized) Parasternal Long [place]:MAS=2 BAS=2 MIL=2 KAYLEY=2 Parasternal Short [place]:MAS=2 MIS=2 PA=2 MIL=2 MAL=2 MA=2 Apical 4 [...] MD By signing this report, the attending certified retinal angiographer certifies that he or she has personally supervised and interpreted the echocardiogram and has reviewed and or edited and agrees with the written comments contained within the report. Result [facility] Billie Padron MD CV ECHO PROCEDURES Edited documented [...] intravenous, Once in imaging, contrast, Starting on Thu12/10/20 at 0832, For 1 dose, Intra-Procedure (CV) Contrast Given 12/10/2020 9:22 AM CDT 1 mL documented in this encounter Care Teams Dental Technology Advisor Relationship Specialty Start Date End Date [place] Mendiola MD [address] [address] PCP - General 06/09/16 Sly Cade MD [address] [address] Referring Physician Cardiology 12/07/18 documented as of this encounter
--- OUTSIDE RECORDS SUMMARY | 2024-03-18 05:02 | XMS_ITS | Encounter Summary ---
Author Organization [facility] Address [address] [place] [address] Care Team Providers Care Electrical Subcontractor Name Role Phone Newton Mendiola MD Primary Care Provider [phone] Sly Cade MD Unavailable [phone] Reason for Referral * Diagnostic Imaging (Routine) - Closed Specialty Diagnoses / Procedures Referred By Nino fletcher Referred To Contact Radiology Diagnoses LV dysfunction LBBB (left bundle branch block) Procedures MRI Cardiac M&F W WO Contrast Sly Cade MD Phone: tel: fax: [place] [address] [place] [address] Referral ID Status Reason Start Date Expiration Date Visits Re quested Visits Authorized [id number] Closed 01/03/2019 07/14/2020 1 1 MS CORRESPONDENCE CLERK Reason for Visit * Diagnostic Imaging (Routine) - Closed Specialty Diagnoses / Procedures Referred By Nino fletcher Referred To Contact Radiology Diagnoses LV dysfunction LBBB (left bundle branch block) Procedures MRI Cardiac M&F W WO Contrast Sly Cade MD Phone: tel: fax: [place] [address] [place] [address] Referral ID Status Reason Start Date Expiration Date Visits Re quested Visits Authorized [id number] Closed 01/03/2019 07/14/2020 1 1 Encounter Details Date Type Department Care Team (Latest Contact Info) Description 01/20/2019 6:28 PM CLAIMS CORRESPONDENCE CLERK - 01/20/2019 11:59 PM CLAIMS CORRESPONDENCE CLERK Hospital Encounter [facility] Radiology [facility] [address] [place] [address] Sly Cade MD [address] [place] [address] LV dysfunction; LBBB (left bundle branch block) Discharge Disposition: Discharge to home or self care Social History Tobacco Use Types Packs/Day Years Used Date Smoking Tobacco: Former Smokeless Tobacco: Never Alcohol Use Standard Drinks/Week Comments No 0 (1 standard drink = 0.6 oz pur e alcohol) Comments Unknown Sex and Gender Information Value Date Recorded Sex Assigned at Not on file Legal Sex Female 7:55 AM CLAIMS CORRESPONDENCE CLERK Gender Identity Not on file Sexual Orientation Not on file documented as of this encounter Medications at Time of Discharge aspirin 81 mg tablet Take 1 tablet (81 mg total) by mouth daily acyclovir (ZOVIRAZ) 5 % cream 09/13/2018 0 azithromycin (ZITHROMAX) 250 mg tablet 06/07/2018 1 buPROPion XL (WELLBUTRIN XL) 300 mg 24 hr tablet Take 300 mg by mouth daily. 3 08/19/[address] (VOLTAREN) 50 mg EC tablet Take 50 mg by mouth 2 (two) times a day 0 04/06/2018 1 escitalopram (LEXAPRO) 5 mg tablet Take 5 mg by mouth daily. 1 12/31/2017 1 fluticasone (CHILDREN'S FLONASE ALLERGY RLF) 50 mcg/actuation nasal spray Administer 1 spray into each nostril daily as needed 07/09/2016 1 isosorbide mononitrate ER (IMDUR) 30 mg 24 hr tablet TAKE 1 TABLET BY MOUTH EVERY DAY 30 tablet 5 03/25/2018 0 losartan (COZAAR) 50 mg tablet Take 1 tablet (50 mg total) by mouth daily 30 tablet 3 01/03/2019 0 metoprolol XL (TOPROL-XL) 50 mg 24 hr tablet Take 1 tablet (50 mg total) by mouth daily. 90 tablet 1 08/26/2017 0 omeprazole (PriLOSEC) 20 mg capsule Take 20 mg by mouth daily. [address] (PROTONIX) 40 mg EC tablet Take 40 mg by mouth daily. 2 08/09/2017 1 rizatriptan (MAXALT) 10 mg tabletIndications :Migraine [...] Name Priority Date/Time Associated Diagnosis Comments MRI CARDIAC M&FUNC W WO CONTRAST Schedule Routine, Read Routine (OP Routine) 01/20/2019 7:50 PM CLAIMS CORRESPONDENCE CLERK LV dysfunction LBBB (left bundle branch block) documented in this encounter Results * MRI Cardiac M&F W WO Contrast (01/20/2019 7:50 PM CLAIMS CORRESPONDENCE CLERK) Anatomical Region Laterality Modality Body N/A Magnetic Resonan ce 01/21/2019 9:49 AM CLAIMS CORRESPONDENCE CLERK Impressions 01/21/2019 3:12 PM CLAIMS CORRESPONDENCE CLERK Globally reduced left ventricular function (LVEF of [...] Vinny Leone M.D. Narrative 01/21/2019 3:12 PM CLAIMS CORRESPONDENCE CLERK EXAMINATION: ??MRI CARDIAC M/T/FUNC W WO CONTRAST [...] by: Vinny Leone M.D. Sly Cade MD IM MRI PROCEDURES Final Resu lt documented in this encounter Visit Diagnoses Diagnosis LV dysfunction Left heart failure LBBB (left bundle branch block) Other left bundle branch block documented in this encounter Administered Medications Inactive Administered Medications - up to 3 most recent administrations Medication Order MAR Action Action Date Dose Rate Site gadobenate dimeglumine (MULTIHANCE) injection 18.68 mL 18.68 mL (0.1 mmol/kg ? 93.4 kg), intravenous, Once in imaging, contrast, Starting on Sarah 01/20/19 at 1929, For 1 dose, Imaging Protocol Orders, Indications: magnetic resonance imagingIndications:magnetic resonance imaging Given 01/20/2019 7:29 PM CLAIMS CORRESPONDENCE CLERK 18 mL documented in this encounter Care Teams Electrical Subcontractor Relationship Specialty Start Date End Date [place] Mendiola MD [address] [place] [address] PCP - General 06/09/16 Sly Cade MD [address] [place] [address] Referring Physician Cardiology 12/07/18 documented as of this encounter
--- OUTSIDE RECORDS SUMMARY | 2024-03-18 05:02 | XMS_ITS | Encounter Summary ---
Author Organization [facility] Address [address] [place] [address] Care Team Providers Care Travel Ticketing Reviewer Name Role Phone [place] Mendiola MD Primary Care Provider [phone] Sly Cade MD Unavailable Reason for Visit * Reason Onset Date Comments Letter for School/Work 07/13/2019 Encounter Details Date Type Department Care Team (Late st Contact Info) Description 07/13/2019 Telephone [facility] [address] [place] [address] Alisha Alexander RN Letter for School/Work Social History Tobacco Use Types Packs/Day Years Used Date Smoking Tobacco: Former Cigarettes Smokeless Tobacco: Never Alcohol Use Standard Drinks/Week Comments No 0 (1 standard drink = 0.6 oz pur e alcohol) Comments Unknown Sex and Gender Information Value Date Recorded Sex Assigned at Not on file Legal Sex Female 7:55 AM BEE BREEDER Gender Identity Not on file Sexual Orientation Not on file documented as of this encounter Miscellaneous Notes * Telephone Encounter - Alisha Alexander MA - 07/13/2019 9:37 AM CDT Pt , Kamaljit, aware. Kamaljit aware to call when he gets into the parking lot and letter will be brought out to him. * Telephone Encounter - Yudelka Nelson NP - 07/13/2019 9:13 AM CDT Note printed for Katy * Telephone Encounter - Alisha Alexander MA - 07/13/2019 8:37 AM CDT Pt , Kamaljit (on pt's HIPAA), states his employer is requesting a letter stating pt tested negative for COVID-19. Kamaljit is aware we are unable to write a letter for him and his employer directly, however, a note can be written for pt. Kamaljit verbalized understanding. Please provide letter for pt stating she has tested negative for COVID-19. Thank you. Pt , Kamaljit, aware he will be contacted when letter is ready. Kamaljit call back # [phone] documented in this encounter Plan of Treatment [...] documented as of this encounter Care Teams Travel Ticketing Reviewer Relationship Specialty Start Date End Date [place] Mendiola MD [address] [address] PCP - General 06/09/16 Sly Cade MD [address] [facility] [address] [place] [address] Referring Physician Cardiology 12/07/18 documented as of this encounter
--- OUTSIDE RECORDS SUMMARY | 2024-03-18 05:02 | XMS_ITS | Encounter Summary ---
Author Organization [facility] Address [address] [place] [address] Phone Care Team Providers Care Hook Puller Name Role Phone [place] Mendiola MD Primary Care Provider [phone] Sly Cade MD Unavailable [phone] Encounter Details Date Type Department Care Team (Late st Contact Info) Description 06/08/2019 Telephone [facility] Cardiology [address] [facility] 8[address] [place] [address] [place] [address] Anna Cervantes Social History Tobacco Use Types Packs/Day Years Used Date Smoking Tobacco: Former Smokeless Tobacco: Never Alcohol Use Standard Drinks/Week Comments No 0 (1 standard drink = 0.6 oz pur e alcohol) Comments Unknown Sex and Gender Information Value Date Recorded Sex Assigned at Not on file Legal Sex Female 7: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 documented in this encounter Plan of Treatment Scheduled Procedures Name Priority Associated Diagnoses Date/Ti me ESOPHAGOGASTRODUODENOSCOPY Nausea Colon cancer screening COLONOSCOPY Nausea Colon cancer screening documented as of this encounter Visit Diagnoses Not on filedocumented in this encounter Additional Health Concerns Infection Onset Date Last Indicated Resolved Time COVID: Suspected 07/08/2019 07/08/2019 07/10/2019 8:40 AM CDT documented as of this encounter Care Teams Hook Puller Relationship Specialty Start Date End Date [place] Mendiola MD [address] [address] PCP - General 06/09/16 Sly Cade MD [address] [facility] [address] [place] [address] Referring Physician Cardiology 12/07/18 documented as of this encounter
--- OUTSIDE RECORDS SUMMARY | 2024-03-18 05:02 | XMS_ITS | Encounter Summary ---
Author Organization [facility] Address [address] [facility] [address] [place] [address] Care Team Providers Care Gre Tutor Name Role Phone [place] Mendiola MD Primary Care Provider [phone] Sly Cade MD Unavailable [phone] Encounter Details Date Type Department Care Team (Late st Contact Info) Description 10/15/2020 Orders Only [facility] [place] [address] [place] [id number] Birdie Ramey, WEB DEVELOPMENT INTERN [address] [place] [address] [place] [id number] Social History Tobacco Use Types Packs/Day Years Used Date Smoking Tobacco: Former Cigarettes Smokeless Tobacco: Never Alcohol Use Standard Drinks/Week Comments No 0 (1 standard drink = 0.6 oz pur e alcohol) Comments No Sex and Gender Information Value Date Recorded Sex Assigned at Not on file 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 Gender Identity Not on file Sexual Orientation Not on file documented as of this encounter Plan of Treatment Scheduled Procedures Name Priority Associated Diagnoses Date/Ti me ESOPHAGOGASTRODUODENOSCOPY Nausea Colon cancer screening COLONOSCOPY Nausea Colon cancer screening documented as of this encounter Visit Diagnoses Not on filedocumented in this encounter Care Teams Gre Tutor Relationship Specialty Start Date End Date [place] Mendiola MD [address] [facility] [address] [place] [address] PCP - General 06/09/16 Sly Cade MD [address] [facility] [address] [place] [address] Referring Physician Cardiology 12/07/18 documented as of this encounter
--- OUTSIDE RECORDS SUMMARY | 2024-03-18 05:02 | XMS_ITS | Encounter Summary ---
Author Organization [facility] Address [address] [address] Care Team Providers Care Canine Service Teacher Name Role Phone Newton Mendiola MD Primary Care Provider [phone] Sly Cade MD Unavailable [phone] Reason for Referral * Consultation (Routine) - Closed Specialty Diagnoses / Procedures Referred By Contkira t Referred To Contact Otolaryngology Diagnoses Acute recurrent pansinusitis Fluid level behind tympanic membrane of left ear Birdie Ramey NP Phone: tel: fax: Sheila So [address] [place] [address] [address] Phone: tel: fax: Referral ID Status Reason Start Date Expiration Date V isits Requested Visits Authorized [id number] Closed Specialty Services Required 10/08/2020 11/07/2021 1 1 Question Answer Please select the performing region: [facility] [[id number]] Please select the performing department: [facility] [[id number]] # of visits: 1 Reason for Visit * Reason Comments Nasal Congestion started yesterday/si nus pain/pressure/swelling with nausea and vomitting/no no known exposure/not vaccinated Fatigue Encounter Details Date Type Department Care Team (Late st Contact Info) Description 10/08/2020 8:45 AM CDT Office Visit 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 Gender Identity Not on file Sexual Orientation Not on file documented as of this encounter Last Filed Vital Signs Vital Sign Reading Time Taken Comments Blood Pressure 136/88 10/08/2020 8:54 AM CDT Pulse 127 10/08/2020 8:54 AM CDT Temperature 36.1 ??C (96.9 ??F) 10/08/2020 8:54 AM CD T Respiratory Rate 16 10/08/2020 8:54 AM CDT Oxygen Saturation 98% 10/08/2020 8:54 AM CDT Inhaled Oxygen Concentration - - Weight 88.4 kg (194 lb 12.8 oz) 10/08/2020 8:54 AM CDT Height 162.6 cm (5' 4 ) 10/08/2020 8:54 AM CDT Body Mass Index 33.44 10/08/2020 8:54 AM CDT documented in this encounter Patient Instructions * Patient Instructions* Birdie Ramey, BRIT - 10/08/2020 8:45 AM CDT Images from the original note were not included. Research has proven that unless you are running a fever, sinus infections are typically viral untildays 9-10. Finish the entire antibiotic prescription. Take [...] a history of high blood pressure. ??? Tessalon, Dextromethorphan (Robitussin) or Delsym for [...] same utensils or glass, and use hand show jumping instructor before touching people or common surfaces. ??? Apply warm packs to face to facilitate sinus drainage. ??? Use cool mist humidifier in bedroom at night. ??? Increase fluid consumption and rest. ??? Follow up with your PCP in 1 week or sooner if symptoms worsen or are not improving as planned. ? ? If you experience any shortness of breath, chest pain, or high fever >101, go to the Emergency Room. Patient Education Sinusitis MUFFLER HAND: Sinusitis is inflammation or infection of your sinuses. It is most often caused by a virus. Acute sinusitis may last up to 12 weeks. Chronic sinusitis lasts longer than 12 weeks. Recurrent sinusitis means you have 4 or more times in 1 year. Common symptoms include the following: ?? Fever ?? Pain, pressure, redness, or swelling around the forehead, cheeks, or eyes ?? Thick yellow or green discharge from your nose ?? Tenderness when you touch your face over your sinuses ?? Dry cough that happens mostly at night or when you lie down ?? Headache and face pain that is worse when you lean forward ?? Tooth pain, or pain when you chew Seek care immediately if: ?? Your eye and eyelid are red, swollen, and painful. ?? You cannot open your eye. ?? You have vision changes, such as double vision. ?? Your eyeball bulges out or you cannot move your eye. ?? You are more sleepy than normal, or you notice changes in your ability to think, move, or talk. ?? You have a stiff neck, a fever, or a bad headache. ?? You have swelling of your forehead or scalp. Contact your healthcare provider if: ?? Your symptoms do not improve after 3 days. ?? Your symptoms do not go away after 10 days. ?? You have nausea and are vomiting. ?? Your nose is bleeding. ?? You have questions or concerns about your condition or care. Treatment for sinusitis: Your symptoms may go away on their own. Your healthcare provider may recommend watchful waiting for up to 10 days before starting antibiotics. You may need any of the following: ?? Acetaminophen decreases pain and fever. It is available without a doctor's order. Ask how much to take and how often to take it. Follow directions. Read the labels of all other medicines you are using to see if they also contain acetaminophen, or ask your doctor or pharmacist. Acetaminophen can cause liver damage if not taken correctly. Do not use more than 4 grams (4,000 milligrams) total of acetaminophen in one day. ?? NSAIDs , such as ibuprofen, help decrease swelling, pain, and fever. This medicine is available with or without a doctor's order. NSAIDs can cause stomach bleeding or kidney problems in certain people. If you take blood thinner medicine, always ask your healthcare provider if NSAIDs are safe foryou. Always read the medicine label and follow directions. ?? Nasal steroid sprays may help decrease inflammation in your nose and sinuses. ?? Decongestants help reduce swelling and drain mucus in the nose and sinuses. They may help you breathe easier. ?? Antihistamines help dry mucus in the nose and relieve sneezing. ?? Antibiotics help treat or prevent a bacterial infection. ?? Take your medicine as directed. Contact your healthcare provider if you think your medicine is not helping or if you have side effects. Tell him or her if you are allergic to any medicine. Keep a list of the medicines, vitamins, and herbs you take. Include the amounts, and when and why you take them. Bring the list or the pill bottles to follow-up visits. Carry your medicine list with you in case of an emergency. Self-care: ?? Rinse your sinuses. Use a sinus rinse device to rinse your nasal passages with a saline (salt water) solution or distilled water. Do not use tap water. This will help thin the mucus in your nose and rinse away pollen and dirt. It will also help reduce swelling so you can breathe normally. Ask your healthcare provider how often to do this. ?? Breathe in steam. Heat a bowl of water until you see steam. Lean over the bowl and make a tent over your head with a large towel. Breathe deeply for about 20 minutes. Be careful not to get too close to the steam or burn yourself. Do this 3 times a day. You can also breathe deeply when you take ahot shower. ?? Sleep with your head elevated. Place an extra pillow under your head before you go to sleep to help your sinuses drain. ?? Drink liquids as directed. Ask your healthcare provider how much liquid to drink each day and which liquids are best for you. Liquids will thin the mucus in your nose and help it drain. Avoid drinks that contain alcohol or caffeine. ?? Do not smoke, and avoid secondhand smoke. Nicotine and other chemicals in cigarettes and cigars can make your symptoms worse. Ask your healthcare provider for information if you currently smoke and need help to quit. E-cigarettes or smokeless tobacco still contain nicotine. Talk to your healthcare provider before you use these products. Prevent the spread of germs that cause sinusitis: Wash your hands often with soap and water. Wash your hands after you use the bathroom, change a child's diaper, or sneeze. Wash your hands before youprepare or eat food. Follow up with your healthcare provider as directed: You may be referred to an ear, nose, and throat specialist. Write down your questions so you remember to ask them during your visits. ?? 2017 [employer] Information is for End User's use only and may not be sold, redistributed or otherwise used for commercial purposes. All illustrations and images included in CareNotes?? are the copyrighted property of [employer] or [employer]. The above information is an teachers' aide only. It is not intended as medical advice for individual conditions or treatments. Talk to your doctor, nurse or pharmacist before following any medical regimen to see if it is safe and effective for you. documented in this encounter Ordered Prescriptions Prescription Sig Dispense Quantity Refills Last Filled Start Date End Date ondansetron (Zofran) 4 mg tabletIndications: Nausea Take 1 tablet (4 mg total) by mouth every 8 (eight) hours as needed for nausea or vomiting 20 tablet 10/08/2020 1 azithromycin (ZITHROMAX) 250 mg tabletIndications: Acute recurrent pansinusitis,Fluid level behind tympanic membrane of left ear Take 2 tablets the first day, then 1 tablet daily for 4 days. 10 tablet 10/08/2020 1 documented in this encounter Progress Notes * Birdie Ramey NP - 10/08/2020 8:45 AM CDT Images from the original note were not included. Subjective/Objective Patient: Katy Sauceda is a 55 y.o. female. Chief Complaint: Nasal Congestion (started yesterday/sinus pain/pressure/swelling with nausea and vomitting/no no known exposure/not vaccinated ) and Fatigue Patient presents to clinic with complaints of nasal congestion, sinus pain and pressure, swelling of face associated with nausea vomiting x1 day. Patient states she has history of chronic sinus infections and states ???I know what this is it is sinus infection.?? Patient denies COVID swab at this time, not vaccinated. Reports having not been vaccinated to/to heart condition including ???left bundle branch block . Denies known COVID exposure or recent ill contacts. States granddaughter was recently seen in clinic with similar symptoms. Denies associated symptoms of infection including cough, sore throat, fever, chills, diarrhea, loss of taste/smell, generalized malaise, excessive fatigue. Review of Systems Constitutional: Positive for fatigue. Negative for chills and fever. HENT: Positive for congestion, rhinorrhea, sinus pressure and sinus pain. Negative for ear discharge, ear pain, sneezing and sore throat. Eyes: Negative. Respiratory: Negative for cough, shortness of breath and wheezing. Cardiovascular: Negative for chest pain. Gastrointestinal: Negative. Endocrine: Negative. Genitourinary: Negative. Musculoskeletal: Negative for arthralgias and myalgias. Skin: Negative. Allergic/Immunologic: Positive for environmental allergies. Neurological: Positive for headaches. Hematological: Negative. Psychiatric/Behavioral: Negative. Physical Exam Vitals and nursing note reviewed. Constitutional: Appearance: Normal appearance. She is ill-appearing. HENT: Head: Normocephalic and atraumatic. Right Ear: Tympanic membrane, ear canal and external ear normal. Tympanic membrane is not injected or erythematous. Left Ear: Ear canal and external ear normal. A middle ear effusion is present. Tympanic membrane isnot injected or erythematous. Nose: Congestion and rhinorrhea present. No mucosal edema. Right Sinus: Maxillary sinus tenderness and frontal sinus tenderness present. Left Sinus: Maxillary sinus tenderness and frontal sinus tenderness present. Mouth/Throat: Lips: [place]. Mouth: Mucous membranes are moist. Pharynx: Oropharynx is clear. Posterior oropharyngeal erythema present. Tonsils: 1+ on the right. 1+ on the left. Eyes: Extraocular Movements: Extraocular movements intact. Conjunctiva/sclera: Right eye: Right conjunctiva is not injected. Left eye: Left conjunctiva is not injected. Cardiovascular: Rate and Rhythm: Normal rate and regular rhythm. Heart sounds: S1 normal and S2 normal. Murmur heard. Systolic murmur is present with a grade of 5/6. Pulmonary: Effort: Pulmonary effort is normal. Breath sounds: Normal breath sounds and air entry. Musculoskeletal: Cervical back: Neck supple. Lymphadenopathy: Cervical: No cervical adenopathy. Skin: General: Skin is warm and dry. Findings: No rash. Neurological: Mental Status: She is alert and oriented to person, place, and time. Psychiatric: Mood and Affect: Mood normal. Behavior: Behavior normal. Vitals: 10/08/20 0854 BP: 136/88 BP Location: Right arm Patient Position: Sitting Pulse: (!) 127 Resp: 16 Temp: 36.1 ??C (96.9 ??F) TempSrc: Temporal SpO2: 98% Weight: 88.4 kg (194 lb 12.8 oz) Height: 162.6 cm (5' 4 ) Assessment/Plan Diagnoses and all orders for this visit: Acute recurrent pansinusitis (Primary) - azithromycin (ZITHROMAX) 250 mg tablet; Take 2 tablets the first day, then 1 tablet daily for 4 days. - Ambulatory referral to ENT; Future Nausea - ondansetron (Zofran) 4 mg tablet; Take 1 tablet (4 mg total) by mouth every 8 (eight) hours as needed for nausea or vomiting Fluid level behind tympanic membrane of left ear - azithromycin (ZITHROMAX) 250 mg tablet; Take 2 tablets the first day, then 1 tablet daily for 4 days. - Ambulatory referral to ENT; Future Orders Placed This Encounter Procedures ??? Ambulatory referral to ENT Standing Status: Future Standing Expiration Date: 10/08/2021 Referral Priority: Routine Referral Type: Consultation Referral Reason: Specialty Services Required Referral Location: [facility] Requested Specialty: Otolaryngology Number of Visits Requested: 1 # acute parasinusitis --start Azithromycin x 10 days in setting of chronicity and middle ear effusion (allergies to PCN) --referral to ENT, f/u as soon as possible --education provided regarding importance of vaccine in setting of underlying comorbidities --OTC supportive therapies including Mucinex as cough expectorant and Benadryl, Zyrtec, Claritin for nasal congestion --Tylenol and/or Motrin for pain/fever --ED presentation with one or more of the following symptoms: fever uncontrolled with antipyretics,shortness of breath, chest discomfort, uncontrolled n/v/d --f/u with PCP upon completion of abx if symptoms do not improve # nausea --start zofran, no closer together than every 6 hours --maintain hydration Patient Instructions: Research has proven that unless you are running a fever, sinus infections are typically viral untildays 9-10. Finish the entire antibiotic prescription. Take [...] a history of high blood pressure. ??? Tessalon, Dextromethorphan (Robitussin) or Delsym for [...] same utensils or glass, and use hand show jumping instructor before touching people or common surfaces. ??? Apply warm packs to face to facilitate sinus drainage. ??? Use cool mist humidifier in bedroom at night. ??? Increase fluid consumption and rest. ??? Follow up with your PCP in 1 week or sooner if symptoms worsen or are not improving as planned. ? ? If you experience any shortness of breath, chest pain, or high fever >101, go to the Emergency Room. Patient Education Sinusitis MUFFLER HAND: Sinusitis is inflammation or infection of your sinuses. It is most often caused by a virus. Acute sinusitis may last up to 12 weeks. Chronic sinusitis lasts longer than 12 weeks. Recurrent sinusitis means you have 4 or more times in 1 year. Common symptoms include the following: ?? Fever ?? Pain, pressure, redness, or swelling around the forehead, cheeks, or eyes ?? Thick yellow or green discharge from your nose ?? Tenderness when you touch your face over your sinuses ?? Dry cough that happens mostly at night or when you lie down ?? Headache and face pain that is worse when you lean forward ?? Tooth pain, or pain when you chew Seek care immediately if: ?? Your eye and eyelid are red, swollen, and painful. ?? You cannot open your eye. ?? You have vision changes, such as double vision. ?? Your eyeball bulges out or you cannot move your eye. ?? You are more sleepy than normal, or you notice changes in your ability to think, move, or talk. ?? You have a stiff neck, a fever, or a bad headache. ?? You have swelling of your forehead or scalp. Contact your healthcare provider if: ?? Your symptoms do not improve after 3 days. ?? Your symptoms do not go away after 10 days. ?? You have nausea and are vomiting. ?? Your nose is bleeding. ?? You have questions or concerns about your condition or care. Treatment for sinusitis: Your symptoms may go away on their own. Your healthcare provider may recommend watchful waiting for up to 10 days before starting antibiotics. You may need any of the following: ?? Acetaminophen decreases pain and fever. It is available without a doctor's order. Ask how much to take and how often to take it. Follow directions. Read the labels of all other medicines you are using to see if they also contain acetaminophen, or ask your doctor or pharmacist. Acetaminophen can cause liver damage if not taken correctly. Do not use more than 4 grams (4,000 milligrams) total of acetaminophen in one day. ?? NSAIDs , such as ibuprofen, help decrease swelling, pain, and fever. This medicine is available with or without a doctor's order. NSAIDs can cause stomach bleeding or kidney problems in certain people. If you take blood thinner medicine, always ask your healthcare provider if NSAIDs are safe foryou. Always read the medicine label and follow directions. ?? Nasal steroid sprays may help decrease inflammation in your nose and sinuses. ?? Decongestants help reduce swelling and drain mucus in the nose and sinuses. They may help you breathe easier. ?? Antihistamines help dry mucus in the nose and relieve sneezing. ?? Antibiotics help treat or prevent a bacterial infection. ?? Take your medicine as directed. Contact your healthcare provider if you think your medicine is not helping or if you have side effects. Tell him or her if you are allergic to any medicine. Keep a list of the medicines, vitamins, and herbs you take. Include the amounts, and when and why you take them. Bring the list or the pill bottles to follow-up visits. Carry your medicine list with you in case of an emergency. Self-care: ?? Rinse your sinuses. Use a sinus rinse device to rinse your nasal passages with a saline (salt water) solution or distilled water. Do not use tap water. This will help thin the mucus in your nose and rinse away pollen and dirt. It will also help reduce swelling so you can breathe normally. Ask your healthcare provider how often to do this. ?? Breathe in steam. Heat a bowl of water until you see steam. Lean over the bowl and make a tent over your head with a large towel. Breathe deeply for about 20 minutes. Be careful not to get too close to the steam or burn yourself. Do this 3 times a day. You can also breathe deeply when you take ahot shower. ?? Sleep with your head elevated. Place an extra pillow under your head before you go to sleep to help your sinuses drain. ?? Drink liquids as directed. Ask your healthcare provider how much liquid to drink each day and which liquids are best for you. Liquids will thin the mucus in your nose and help it drain. Avoid drinks that contain alcohol or caffeine. ?? Do not smoke, and avoid secondhand smoke. Nicotine and other chemicals in cigarettes and cigars can make your symptoms worse. Ask your healthcare provider for information if you currently smoke and need help to quit. E-cigarettes or smokeless tobacco still contain nicotine. Talk to your healthcare provider before you use these products. Prevent the spread of germs that cause sinusitis: Wash your hands often with soap and water. Wash your hands after you use the bathroom, change a child's diaper, or sneeze. Wash your hands before youprepare or eat food. Follow up with your healthcare provider as directed: You may be referred to an ear, nose, and throat specialist. Write down your questions so you remember to ask them during your visits. ?? 2017 [employer] Information is for End User's use only and may not be sold, redistributed or otherwise used for commercial purposes. All illustrations and images included in CareNotes?? are the copyrighted property of [employer] or [employer]. The above information is an teachers' aide only. It is not intended as medical advice for individual conditions or treatments. Talk to your doctor, nurse or pharmacist before following any medical regimen to see if it is safe and effective for you. Brief: Treatment plan including expectations, follow up, and return precautions discussed with patient/parent, verbalizes understanding. Medication dosage, use, and potential adverse reactions discussed with patient/parent. Advised to follow up with PCP if symptoms do not resolve as expected or sooner if condition worsens. Signs/symptoms warranting ER evaluation reviewed. Patient and/or guardian was given an opportunity to ask questions, questions answered. Birdie Ramey NP documented in this encounter Plan of Treatment Scheduled Procedures Name Priority Associated Diagnoses Date/Ti me ESOPHAGOGASTRODUODENOSCOPY Nausea Colon cancer screening COLONOSCOPY Nausea Colon cancer screening Scheduled Referrals Name Type Priority Associated Diagnoses Order Schedule Ambulatory referral to ENT Outpatient Referral Routine Acute recurrent pansinusitis Fluid level behind tympanic membrane of left ear Expected: 10/22/2020 (Approximate), Expires: 10/08/2021 documented as of this encounter Visit Diagnoses Diagnosis Acute recurrent pansinusitis- Primary Nausea Nausea alone Fluid level behind tympanic membrane of left ear documented in this encounter Care Teams Canine Service Teacher Relationship Specialty Start Date End Date Newton Mendiola MD [address] [address] PCP - General 06/09/16 Sly Cade MD [address] [address] Referring Physician Cardiology 12/07/18 documented as of this encounter
--- OUTSIDE RECORDS SUMMARY | 2024-03-18 05:02 | XMS_ITS | Encounter Summary ---
Author Organization [facility] Address [address] [address] Care Team Providers Care Park Services Specialist Name Role Phone Newton Mendiola MD Primary Care Provider [phone] Sly Cade MD Unavailable [phone] Encounter Details Date Type Department Care Team (Late st Contact Info) Description 10/16/[address] [facility] [address] [place] [address] Birdie Ramey, BRIT [address] [place] [address] Social History Tobacco Use Types Packs/Day Years Used Date Smoking Tobacco: Former Cigarettes Smokeless Tobacco: Never Alcohol Use Standard Drinks/Week Comments No 0 (1 standard drink = 0.6 oz pur e alcohol) Comments No Sex and Gender Information Value Date Recorded Sex Assigned at Not on file 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 Gender Identity Not on file Sexual Orientation Not on file documented as of this encounter Miscellaneous Notes * Telephone Encounter - Isabella Bravo MA - 10/16/2020 12:51 PM CDT Zithromax 250 mg tablet [facility] [place] [facility] 0 refills pt hasbeen informed documented in this encounter Plan of Treatment Scheduled Procedures Name Priority Associated Diagnoses Date/Ti me ESOPHAGOGASTRODUODENOSCOPY Nausea Colon cancer screening COLONOSCOPY Nausea Colon cancer screening documented as of this encounter Visit Diagnoses Not on filedocumented in this encounter Care Teams Park Services Specialist Relationship Specialty Start Date End Date Newton Mendiola MD [address] [address] PCP - General 06/09/16 Sly Cade MD [address] [address] Referring Physician Cardiology 12/07/18 documented as of this encounter
--- OUTSIDE RECORDS SUMMARY | 2024-03-18 05:02 | XMS_ITS | Encounter Summary ---
Author Organization [facility] Address [address] [place] [address] Phone Care Team Providers Care Geospatial Specialist Name Role Phone Newton Mendiola MD Primary Care Provider [phone] Encounter Details Date Type Department Care Team (Late st Contact Info) Description 12/06/2018 Telephone [facility] Neuro Sleep [address] [facility] 6th [address] [place] [address] Paul Rios RPSGT Social History Tobacco Use Types Packs/Day Years Used Date Smoking Tobacco: Former Smokeless Tobacco: Never Alcohol Use Standard Drinks/Week Comments No 0 (1 standard drink = 0.6 oz pur e alcohol) Comments Unknown Sex and Gender Information Value Date Recorded Sex Assigned at Not on file 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 documented in this encounter Plan of Treatment Scheduled Procedures Name Priority Associated Diagnoses Date/Ti me ESOPHAGOGASTRODUODENOSCOPY Nausea Colon cancer screening COLONOSCOPY Nausea Colon cancer screening documented as of this encounter Visit Diagnoses Not on filedocumented in this encounter Care Teams Geospatial Specialist Relationship Specialty Start Date End Date Newton Mendiola MD [address] [facility] [address] [place] [address] PCP - General 06/09/16 documented as of this encounter
--- OUTSIDE RECORDS SUMMARY | 2024-03-18 05:02 | XMS_ITS | Encounter Summary ---
Author Organization [facility] Facility Care Team Providers Care Solder Cream Maker Name Role Phone Newton Mendiola MD Primary Care Provider [phone] Sly Cade MD Unavailable [phone] Encounter Details Date Type Department Care Team (Latest Contact Info) Description 01/07/2019 Travel Social History Tobacco Use Types Packs/Day Years Used Date Smoking Tobacco: Former Smokeless Tobacco: Never Alcohol Use Standard Drinks/Week Comments No 0 (1 standard drink = 0.6 oz pur e alcohol) Comments Unknown Sex and Gender Information Value Date Recorded Sex Assigned at Not on file 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 Gender Identity Not on file Sexual Orientation Not on file documented as of this encounter Plan of Treatment Scheduled Procedures Name Priority Associated Diagnoses Date/Ti me ESOPHAGOGASTRODUODENOSCOPY Nausea Colon cancer screening COLONOSCOPY Nausea Colon cancer screening documented as of this encounter Visit Diagnoses Not on filedocumented in this encounter Care Teams Solder Cream Maker Relationship Specialty Start Date End Date Newton Mendiola MD [address] [address] PCP - General 06/09/16 Sly Cade MD [address] [address] Referring Physician Cardiology 12/07/18 documented as of this encounter
--- OUTSIDE RECORDS SUMMARY | 2024-03-18 05:03 | XMS_ITS | Encounter Summary ---
Author Organization [facility] Address [address] [place] [address] Phone Care Team Providers Care Rotary Engraver Name Role Phone Newton Mendiola MD Primary Care Provider [phone] Encounter Details Date Type Department Care Team (Late st Contact Info) Description 08/18/2017 Telephone [facility] [address] [facility] 8th [place] [address] [place] [id number] Sly Cade MD [address] [place] [address] Social History Tobacco Use Types Packs/Day Years Used Date Smoking Tobacco: Former Smokeless Tobacco: Never Comments Unknown Sex and Gender Information Value Date Recorded Sex Assigned at Not on file 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 30 tablet 5 08/18/2017 03/25/2018 documented in this encounter Miscellaneous Notes * Telephone Encounter - Teresa Robert MA - 08/18/2017 11:11 AM CDT Called pt LMOR, to clarify which med needs to be filled. Isosorbide or metoprolol? Spoke with pt she needs Isosorbide filled (1 tablet daily) * Telephone Encounter - Rima Dorsey MA - 08/18/2017 10:55 AM CDT Nitro isn't on med list in [employer] or [employer]. Please advise. Thanks * Telephone Encounter - Alyson Horton - 08/18/2017 10:45 AM CDT CLARI SHE NEEDS NEW REFILL WITH CORRECT DOSAGE OF 1 PILL (WAS TAKING 1/2 PILL) [facility] @ [phone] documented in this encounter Plan of Treatment Scheduled Procedures Name Priority Associated Diagnoses Date/Ti me ESOPHAGOGASTRODUODENOSCOPY Nausea Colon cancer screening COLONOSCOPY Nausea Colon cancer screening documented as of this encounter Visit Diagnoses Not on filedocumented in this encounter Discontinued Medications Medication Sig Discontinue Reason Start Date End Da te isosorbide mononitrate ER (IMDUR) 30 mg 24 hr tablet Take 30 mg by mouth. Reorder 07/30/2017 08/18/2017 documented as of this encounter Historical Medications * This list may reflect changes made after this encounter. isosorbide mononitrate ER (IMDUR) 30 mg 24 hr tablet Take 30 mg by mouth. 07/30/2017 08/18/2017 added in this encounter Care Teams Rotary Engraver Relationship Specialty Start Date End Date Newton Mendiola MD [address] [address] PCP - General 06/09/16 documented as of this encounter
--- OUTSIDE RECORDS SUMMARY | 2024-03-18 05:03 | XMS_ITS | Encounter Summary ---
Author Organization [facility] Healthcare Address [address] [place] [address] Care Team Providers Care Account Engineer Name Role Phone Newton Mendiola MD Primary Care Provider [phone] Reason for Visit * Reason Comments Chest Pain Encounter Details Date Type Department Care Team (Late st Contact Info) Description 02/25/2018 10:36 AM WELL DRILL OPERATOR - 02/25/2018 2:16 PM WELL DRILL OPERATOR Emergency [facility] Emergency Department [address] [place] [address] Karel Kumar MD [address] [facility] [address] [place], [place] [id number] Palpitations (Primary Dx); Other chest pain Discharge Disposition: Discharge to home or self care Social History Tobacco Use Types Packs/Day Years Used Date Smoking Tobacco: Former Smokeless Tobacco: Never Alcohol Use Standard Drinks/Week Comments No 0 (1 standard drink = 0.6 oz pur e alcohol) Comments Unknown Sex and Gender Information Value Date Recorded Sex Assigned at Not on file Legal Sex Female 7:55 AM WELL DRILL OPERATOR Gender Identity Not on file Sexual Orientation Not on file documented as of this encounter Last Filed Vital Signs Vital Sign Reading Time Taken Comments Blood Pressure 128/70 02/25/2018 2:00 PM WELL DRILL OPERATOR Pulse 79 02/25/2018 2:00 PM WELL DRILL OPERATOR Temperature 36.7 ??C (98.1 ??F) 02/25/2018 10:[address] Respiratory Rate 17 02/25/2018 2:00 PM WELL DRILL OPERATOR Oxygen Saturation 97% 02/25/2018 2:00 PM WELL DRILL OPERATOR Inhaled Oxygen Concentration - - Weight 90.7 kg (200 lb) 02/25/2018 9:16 AM WELL DRILL OPERATOR Height 162.6 cm (5' 4 ) 02/25/2018 9:16 AM WELL DRILL OPERATOR Body Mass Index 34.33 02/25/2018 9:16 AM WELL DRILL OPERATOR documented in this encounter Discharge Instructions * Discharge Instructions* Demond Sharp MD - 02/25/2018 1:37 PM WELL DRILL OPERATOR Please return to ED immediately if you have any chest pain, shortness of breath, changes in your mental status as you may have an emergency medical condition necessitating additional management and possible inpatient admission. DRILL OPERATOR documented in this encounter Medications at Time of Discharge aspirin 81 mg tablet Take 1 tablet (81 mg total) by mouth daily buPROPion XL (WELLBUTRIN XL) 300 mg 24 hr tablet Take 300 mg by mouth daily. 3 08/19/2017 0 escitalopram (LEXAPRO) 5 mg tablet Take 5 mg by mouth daily. 1 12/31/2017 1 fluticasone (CHILDREN'S FLONASE ALLERGY RLF) 50 mcg/actuation nasal spray Administer 1 spray into each nostril daily as needed 07/09/2016 1 isosorbide mononitrate ER (IMDUR) 30 mg 24 hr tablet Take 1 tablet (30 mg total) by mouth daily. 30 tablet 5 08/18/2017 9 losartan (COZAAR) 25 mg tablet Take 25 mg by mouth daily. 5 07/05/2017 9 metoprolol XL (TOPROL-XL) 50 mg 24 hr [...] or self care documented in this encounter ED Notes * Demond Sharp MD - 02/25/2018 11:05 AM CST HPI Chief Complaint Patient presents with ??? Chest Pain 53F PMH CHF x1 yr follows with Dr. Evans, and history of Hodgkin's in remission with here for alternating palpitations and slowing of the heart that occurred approx. 2am and chest pain that began anterior midline over sternum and under left breast. Pain lasted approx 15min. Has had both the palpitations and slowing of the heart feeling before. Additionally reports sharp pain over left lateral neck and duller muscle-ache pain over left scapula that has been occurring intermittently since 0400 this morning: she has also experienced this pain before. She is not endorsing this pain or any pain on examination. Had nausea previously this morning but no vomiting and no nausea at moment. No ruddy phoresis this am or currently. ROS: Positive for increased SOB over last few months with exertion, reports able to walk 50-60 feetprior to SOB. Positive for TONG, left sided, occurring intermittently over last month. Reports has light sensitivity all the time . Able to watch TV when has headaches. No GI/ changes, no abdominal pain, no extremity swelling. Soc: No tobacco, etoh, caffeine, drug use. Patient History There are no active problems to display for this patient. Past Medical History: Diagnosis Date ??? CHF (congestive heart failure) (CMS/HCC) ??? Hypertension History reviewed. No pertinent surgical history. History reviewed. No pertinent family history. Social History Substance Use Topics ??? Smoking status: Former Smoker ??? Smokeless tobacco: Never Used ??? Alcohol use No Social History Social History Narrative ??? No narrative on file Review of Systems Review of Systems Constitutional: Negative for chills and fever. HENT: Negative for ear pain and sore throat. Eyes: Negative for pain and visual disturbance. Respiratory: Negative for cough and wheezing. Cardiovascular: Negative for palpitations and leg swelling. Gastrointestinal: Negative for abdominal pain and vomiting. Genitourinary: Negative for dysuria and hematuria. Musculoskeletal: Negative for arthralgias and back pain. Skin: Negative for color change and rash. Neurological: Negative for seizures and syncope. All other systems reviewed and are negative. Physical Exam ED Triage Vitals Temp Pulse Resp BP SpO2 02/25/18 1001 02/25/18 0916 02/25/18 0916 02/25/18 0916 02/25/18 0916 36.7 ??C (98.1 ??F) 79 17 140/86 95 % Temp src Heart Rate Source Patient Position BP Location FiO2 (%) 02/25/18 1001 -- -- -- -- Oral Physical Exam Constitutional: She is oriented to person, place, and time. She appears well- developed. No distress. HENT: Head: Normocephalic and atraumatic. Eyes: Pupils are equal, round, and reactive to light. EOM are normal. Neck: Normal range of motion. Neck supple. No JVD present. Cardiovascular: Normal rate and regular rhythm. Exam reveals no gallop and no friction rub. No murmur heard. HR 77, regular. Equal radial pulses. Pulmonary/Chest: Effort normal and breath sounds normal. She has no wheezes. She has no rales. Abdominal: Soft. Bowel sounds are normal. There is no tenderness. Musculoskeletal: Normal range of motion. She exhibits no edema. Neurological: She is alert and oriented to person, place, and time. Skin: Skin is warm. Capillary refill takes less than 2 seconds. No rash noted. She is not diaphoretic. No erythema. No pallor. Vitals reviewed. MDM MDM Number of Diagnoses or Management Options Other chest pain: Palpitations: Diagnosis management comments: 53F here for palpitations and feeling of heart slowing and atypical chest pain with PMH CHF (last echo 05/26/17: Mild LVH. Expected septal wall motion abnormality with EF 50%. Impaired diastolic relaxation. Normal RV size and function. LA is normal. Normal Inferior vena. Mild AR, mild TR. PASP 27mm Hg. Improved LV function since prior echo) follows Dr Martini and Hodgkin's in remission. No heart symptoms or chest pain on exam. No reproducible pain to palpation. HRregular, non-tachycardic. No diaphoresis or tachypnea. Plan: EKG, trop, f/u Dr. Evans. Amount and/or Complexity of Data Reviewed Clinical lab tests: reviewed Tests in the radiology section of CPT??: reviewed Tests in the medicine section of [facility]??: reviewed Attending Summary of Care ED Course as of Feb 25 1413 Time: 02/25 1049 Comment: 53 yo fem with hx of prior Hodgkin's dz, mild CHF (last EF 50%), followed by Dr. Hassan noted pt had been gaining weight, approximately 12 pounds over the past several months, and hadbecome progressively short of breath during a visit with her on 02/19. She was therefore to be scheduled for a dobutamine stress ECHO. She comes in today with chest pain. Pain began around 2 AM, anterior, beneath left breast, lasting about 10 minutes. She also notes palpitations (feels like her heart is speeding up and slowing down intermittently). No noticing this now, no chest pain now. Pain didnot radiate. She denies change in baseline SOB. No fevers/chills. VSS. Ht sounds normal. Lungs clear. No abd tenderness. No LE edema or calf tenderness Pt here with an episode of transient, nonexertional CP this morning with some nonspecific palpitations. ECG unchanged. Last cath July of last year and revealed clean coronary arteries. Will check basic labs, CXR. Pt has stress test scheduled for next Thursday. Her current episode was nonexertional. Will contact and discuss with Dr. Cade. By: Karel Kumar MD Time: 02/25 1239 Comment: Spoke with Dr. Cade. He recommends a d-dimer and if negative agree discharge home with normal follow-up next week is appropriate. By: Demond Sharp MD Time: 02/25 1333 Comment: D-dimer negative. Will discharge home with cardiology follow-up next week. Discussed results and discharge plan with patient who had no additional questions or concerns and is amenable with discharge plan. By: Demond Sharp MD Palpitations Other chest pain Demond Sharp MD Resident 02/25/18 1413 Cosigned by Karel Kumar MD at 02/25/2018 2:16 PM WELL DRILL OPERATOR DRILL OPERATOR DRILL OPERATOR Associated attestation - Karel Kumar MD - 02/25/2018 2:16 PM WELL DRILL OPERATOR I have seen and examined the patient on 02/25/2018 . I agree with the findings and plan of care as documented in the resident's note. * Hussein Bates RN - 02/25/2018 10:36 AM CST Bed: [id number] Expected date: Expected time: Means of arrival: Car Comments: Hussein Bates RN 02/25/18 1036 DRILL OPERATOR * Olivia Dominguez RN - 02/25/2018 9:08 AM CST Cp on and off for several days. General fatigue, denies sob, DRILL OPERATOR documented in this encounter Miscellaneous Notes * ED Procedure Note - Karel Kumar MD - 02/25/2018 9:30 AM CSTAssociated Order(s): ECG 12-LEAD Procedure ECG 12 lead Date/Time: 02/25/2018 9:30 AM Performed by: KAREL KUMAR Authorized by: KAREL KUMAR Rate: ECG rate: 73 ECG rate assessment: normal Rhythm: Rhythm: sinus rhythm Ectopy: Ectopy: none QRS: QRS axis: Normal QRS intervals: Wide Conduction: Conduction: abnormal Abnormal conduction: non-specific intraventricular conduction delay ST segments: ST segments: Normal T waves: T waves: non-specific and flattening Previous ECG: Previous ECG: Compared to current Date of previous EC01/05/2017 Similarity: No change Interpretation: Interpretation: No significant change Recommended Follow-up: Recommended follow up: further workup in the ED Karel Kumar MD 02/25/18 0931 DRILL OPERATOR documented in this encounter Plan of Treatment Scheduled Procedures Name Priority Associated Diagnoses Date/Ti me ESOPHAGOGASTRODUODENOSCOPY Nausea Colon cancer screening COLONOSCOPY Nausea Colon cancer screening documented as of this encounter Procedures Procedure Name Priority Date/Time Associated Diagnosis Comments D-DIMER, QUANTITATIVE STAT 02/25/2018 12:53 PM WELL DRILL OPERATOR XR CHEST PA LATERAL 2 VIEWS ED 02/25/2018 11:41 AM WELL DRILL OPERATOR DIFFERENTIAL AUTO STAT 02/25/2018 10: 50 AM WELL DRILL OPERATOR CBC WITH AUTO DIFFERENTIAL STAT 02/25/2018 10:50 AM WELL DRILL OPERATOR TROPONIN I STAT 02/25/2018 10:50 AM WELL DRILL OPERATOR BASIC METABOLIC PANEL STAT 02/25/2018 10:50 AM WELL DRILL OPERATOR ECG 12-LEAD STAT 02/25/2018 9:30 AM WELL DRILL OPERATOR documented in this encounter Results * D-dimer, quantitative (02/25/2018 12:53 PM WELL DRILL OPERATOR) D-dimer 152 110 - 230 ng/mL D-DU [facility] Comment: Interpretive Data This D-dimer test is approved by the FDA to exclude suspected PE and DVT in outpatients when the result is <230 ng/mL in conjunction with a pre-test probability score of low or moderate using the Wells criteria. Current Interpretive Data was last revised on 2011. Blood specimen (specimen) 02/25/2018 12:53 PM WELL DRILL OPERATOR 02/25/2018 1:00 PM WELL DRILL OPERATOR Narrative [facility] - 02/25/2018 1:30 PM WELL DRILL OPERATOR THE BJ COLLECTION LOCATION IS [facility] ED1-14 us Demond Sharp MD LAB BLOOD ORDERABLES Arlen l Result [facility] Department [place] [address] * XR Chest Pa Lateral 2 Views (02/25/2018 11:41 AM WELL DRILL OPERATOR) Anatomical Region Laterality Modality Body, Chest N/A Computed Radiogr aphy 02/25/2018 12:0 1 PM WELL DRILL OPERATOR Impressions 02/25/2018 12:12 PM WELL DRILL OPERATOR Frontal and lateral view of the chest is submitted with comparison to 07/24/2016. The lungs are clear. There is no pleural effusion, focal consolidation, pneumothorax, or pulmonary edema. The cardiomediastinal silhouette is within normal limits. Dictated by: Isabella Nelson M.D. Electronically signed by: Polly Petty M.D. Narrative 02/25/2018 12:12 PM WELL DRILL OPERATOR EXAMINATION: Chest 2 views HISTORY: chf Procedure Note Polly Petty MD - 02/25/2018 EXAMINATION: Chest 2 views HISTORY: chf IMPRESSION: Frontal and lateral view of the chest is submitted with comparison to 07/24/2016. The lungs are clear. There is no pleural effusion, focal consolidation, pneumothorax, or pulmonary edema. The cardiomediastinal silhouette is within normal limits. Dictated by: Isabella Nelson M.D. Electronically signed by: Polly Petty M.D. us Demond Sharp MD IMG XR PROCEDURES Final R esult * Differential, auto (02/25/2018 10:50 AM WELL DRILL OPERATOR) Neutrophil abs 4.5 1.7 - 6.5 K/cumm [facility] Imm gran abs 0.0 0.0 - 0.1 K/cumm [facility] Lymphocyte abs 2.5 0.8 - 3.3 K/cumm [facility] Monocyte abs 0.5 0.2 - 0.8 K/cumm [facility] Eosinophil abs 0.1 0.0 - 0.5 K/cumm [facility] Basophil abs 0.1 0.0 - 0.1 K/cumm [facility] Neutrophil pct 58.2 % [facility] Comment: Interpretive Data Percent cell count reference ranges are not reported, since discordance with absolute values may lead to misinterpretation of CBC data. Current Interpretive Data was last revised on 2017. Imm gran pct 0.3 % [facility] Comment: Interpretive Data Percent cell count reference ranges are not reported, since discordance with absolute values may lead to misinterpretation of CBC data. Current Interpretive Data was last revised on 2017. Lymphocyte pct 32.3 % [facility] Comment: Interpretive Data Percent cell count reference ranges are not reported, since discordance with absolute values may lead to misinterpretation of CBC data. Current Interpretive Data was last revised on 2017. Monocyte pct 7.0 % [facility] Comment: Interpretive Data Percent cell count reference ranges are not reported, since discordance with absolute values may lead to misinterpretation of CBC data. Current Interpretive Data was last revised on 2017. Eosinophil pct 1.3 % [facility] Comment: Interpretive Data Percent cell count reference ranges are not reported, since discordance with absolute values may lead to misinterpretation of CBC data. Current Interpretive Data was last revised on 2017. Basophil pct 0.9 % [facility] Comment: Interpretive Data Percent cell count reference ranges are not reported, since discordance with absolute values may lead to misinterpretation of CBC data. Current Interpretive Data was last revised on 2017. Blood specimen (specimen) 02/25/2018 10:50 AM WELL DRILL OPERATOR 02/25/2018 10:55 AM WELL DRILL OPERATOR Narrative [facility] - 02/25/2018 11:18 AM WELL DRILL OPERATOR Karel Kumar MD LAB BLOOD ORDERABLES Final Result [facility] Department [place] [address] * (ABNORMAL) CBC with auto differential (02/25/2018 10:50 AM WELL DRILL OPERATOR) Pathologist [facility] WBC 7.7 3.8 - 9.9 K/cumm [facility] Hgb 12.0 11.9 - 15.5 g/dL [facility] Hct 38.0 35.6 - 45.5 % [facility] Plt 367 150 - 400 K/cumm [facility] MPV 8.9(L) 9.1 - 12.3 fL [facility] RBC 4.25 3.90 - 5.20 M/cumm [facility] MCV 89.4 81.3 - 96.4 fL [facility] MCH 28.2 27.1 - 33.3 pg [facility] MCHC 31.6(L) 32.3 - 35.7 g/dL [facility] RDW CV 13.8 11.1 - 14.9 % [facility] RDW SD 44.9 35.7 - 48.1 fL [facility] NRBC abs 0.00 0.00 - 0.01 K/cumm [facility] Blood specimen (specimen) (Blood, Venous) 02/25/2018 10:50 AM WELL DRILL OPERATOR 02/25/2018 10:55 AM WELL DRILL OPERATOR Narrative [facility] - 02/25/2018 11:18 AM WELL DRILL OPERATOR THE COLLECTION LOCATION IS Karel Kumar MD LAB BLOOD ORDERABLES Final Result [facility] Department [place] [address] * Troponin I (02/25/2018 10:50 AM WELL DRILL OPERATOR) [facility] Troponin I <0.03 0.00 - 0.03 ng/mL [facility] Comment: Interpretive Data: Normal plasma Troponin I concentrations can reach 1 ng/mL in the first two weeks of life and slowly decrease to adult levels (<0.03 ng/mL) by the age of 3 months. > 3 months ??<0.03 ng/mL > or = 18 years Serial determinations are recommended for the diagnosis of myocardial infarction. ??Temporal rise and fall are consistent with myocardial infarction when at least one value is above the 99th percentile upper reference limit for Troponin assay. References: 1. Clin Chem 2013;59:[id number] 2. Journal of the [place] [employer] 2012;60:1581-98 Current Interpretive Data Last Revised Date: 2017. Blood specimen (specimen) 02/25/2018 10:50 AM WELL DRILL OPERATOR 02/25/2018 10:55 AM WELL DRILL OPERATOR Narrative [facility] - 02/25/2018 11:50 AM WELL DRILL OPERATOR THE COLLECTION LOCATION IS Karel Kumar MD LAB BLOOD ORDERABLES Final Result [facility] Department [place] [address] * (ABNORMAL) Basic metabolic panel (02/25/2018 10:50 AM WELL DRILL OPERATOR) Sodium 142 135 - 145 mmol/L [facility] Potassium, pl 4.1 3.3 - 4.9 mmol/L [facility] Chloride 111(H) 97 - 110 mmol/L [facility] CO2 24 22 - 32 mmol/L [facility] Anion gap 7 2 - 15 mmol/L [facility] BUN 13 8 - 25 mg/dL [facility] Creatinine 0.68 0.60 - 1.10 mg/dL [facility] Glucose 103 70 - 199 mg/dL [facility] Comment: Interpretive Data Fasting glucose >/= [...] 2017. Calcium 9.1 8.5 - 10.3 mg/dL [facility] Blood specimen (specimen) 02/25/2018 10:50 AM WELL DRILL OPERATOR 02/25/2018 10:55 AM WELL DRILL OPERATOR Narrative [facility] - 02/25/2018 11:33 AM WELL DRILL OPERATOR THE COLLECTION LOCATION IS Karel Kumar MD LAB BLOOD ORDERABLES Final Result [facility] Department [place] [address] * ECG 12-LEAD (02/25/2018 9:30 AM WELL DRILL OPERATOR) Narrative [facility] - 02/25/2018 9:30 AM WELL DRILL OPERATOR Karel Kumar MD ? 02/25/2018 ??9:31 AM ECG 12 lead Date/Time: 02/25/2018 9:30 AM Performed by: KAREL KUMAR Authorized by: KAREL KUMAR Rate: ??ECG rate: ??73 ??ECG rate assessment: normal ?? Rhythm: ??Rhythm: sinus rhythm ?? Ectopy: ??Ectopy: none ?? QRS: ??QRS axis: ??Normal ??QRS intervals: ??Wide Conduction: ??Conduction: abnormal ?Abnormal conduction: non-specific intraventricular conduction delay ?? ST segments: ??ST segments: ??Normal T waves: ??T waves: non-specific and flattening ?? Previous ECG: ??Previous ECG: ??Compared to current ??Date of previous ECG: ??01/05/2017 ??Similarity: ??No change Interpretation: ??Interpretation: No significant change ?? Recommended Follow-up: ??Recommended follow up: further workup in the ED ?? Procedure Note Karel Kumar MD - 02/25/2018 9:30 AM CST Procedure ECG 12 lead Date/Time: 02/25/2018 9:30 AM Performed by: KAREL KUMAR Authorized by: KAREL KUMAR Rate: ECG rate: 73 ECG rate assessment: normal Rhythm: Rhythm: sinus rhythm Ectopy: Ectopy: none QRS: QRS axis: Normal QRS intervals: Wide Conduction: Conduction: abnormal Abnormal conduction: non-specific intraventricular conduction delay ST segments: ST segments: Normal T waves: T waves: non-specific and flattening Previous ECG: Previous ECG: Compared to current Date of previous EC01/05/2017 Similarity: No change Interpretation: Interpretation: No significant change Recommended Follow-up: Recommended follow up: further workup in the ED Karel Kumar MD 02/25/18 0931 Karel Kumar MD ECG ORDERABLES Final Resu lt [facility] documented in this encounter Visit Diagnoses Diagnosis Palpitations- Primary Other chest pain documented in this encounter Discontinued Medications Medication Sig Discontinue Reason Start Date End Da te promethazine (PHENERGAN) 25 mg tablet Take 25 mg by mouth every 6 hours. Allergic response 03/07/2011 02/25/2018 HYDROcodone-acetaminophe n (NORCO) 5-325 mg per tabletIndications:Pain Take 1 tablet by mouth every 6 hours. Allergic response 03/07/2011 02/25/2018 documented as of this encounter Orders Nursing Count Last Ordered Date First Orde red Date NURSING COMMUNICATION 1 02/25/2018 documented in this encounter Care Teams Account Engineer Relationship Specialty Start Date End Date Newton Mendiola MD [address] [facility] [address] [place] [address] PCP - General 06/09/16 documented as of this encounter
--- OUTSIDE RECORDS SUMMARY | 2024-03-18 05:03 | XMS_ITS | Encounter Summary ---
Author Organization [facility] Address [address] [place] [address] Phone Care Team Providers Care Hr Specialist Name Role Phone Newton Mendiola MD Primary Care Provider [phone] Encounter Details Date Type Department Care Team (Late st Contact Info) Description 06/25/2018 Telephone [facility] Cardiology [address] [facility] 8[address] [place] [address] [place] [address] Sly Cade MD [address] [place], [place] [id number] Social History Tobacco Use Types Packs/Day Years Used Date Smoking Tobacco: Former Smokeless Tobacco: Never Alcohol Use Standard Drinks/Week Comments No 0 (1 standard drink = 0.6 oz pur e alcohol) Comments Unknown Sex and Gender Information Value Date Recorded Sex Assigned at Not on file Legal Sex Female 7:55 AM DIESEL TRACTOR ENGINE MECHANIC Gender Identity Not on file Sexual Orientation Not on file documented as of this encounter Miscellaneous Notes * Telephone Encounter - Odalis Monroe RN - 06/25/2018 2:[address] Ramesh office spoke with Dori she will send him a message. He is out of the office right now but he will be checking messages. * Telephone Encounter - Anna Funez - 06/25/2018 2:39 PM CDT CLARI PT JUST SAW DR CADE TODAY. PT HAS A SINUS INFECTION--PT'S PCP,DR MENDIOLA ,SENT IN [facility]. PT IS NOT ABLE TO TAKE THE MEDICATION-CAUSED ACHILLES TENDON PAIN. PT IS GOING TO [place] THIS WEEK-END -DR MENDIOLA'S OFFICE IS NOW CLOSED. PT ASKING IF DR CADE WOULD BE WILLING TO CALL SOMETHING IN FOR HER? [facility]# [phone] documented in this encounter Plan of Treatment Scheduled Procedures Name Priority Associated Diagnoses Date/Ti me ESOPHAGOGASTRODUODENOSCOPY Nausea Colon cancer screening COLONOSCOPY Nausea Colon cancer screening documented as of this encounter Visit Diagnoses Not on filedocumented in this encounter Care Teams Hr Specialist Relationship Specialty Start Date End Date Newton Mendiola MD [address] [address] PCP - General 06/09/16 documented as of this encounter
--- OUTSIDE RECORDS SUMMARY | 2024-03-18 05:03 | XMS_ITS | Encounter Summary ---
Author Organization [facility] Healthcare Address [address] [place] [address] Care Team Providers Care Commission Clerk Name Role Phone Newton Mendiola MD Primary Care Provider [phone] Encounter Details Date Type Department Care Team (Latest Contact Info) Description 07/24/2016 7:10 AM CDT - 07/24/2016 11:59 PM CDT Hospital Encounter [facility] OP INTERIM [phone] Sly Cade MD [address] [facility] [address] [place] [address] Discharge Disposition: Discharge to home or self care Social History Tobacco Use Types Packs/Day Years Used Date Smoking Tobacco: Never Assessed Comments Unknown Sex and Gender Information Value Date Recorded Sex Assigned at Not on file Legal Sex Female 7:55 AM BIODIESEL PRODUCT MANAGER Gender Identity Not on file Sexual Orientation Not on file documented as of this encounter Medications at Time of Discharge fluticasone (CHILDREN'S FLONASE ALLERGY RLF) 50 mcg/actuation nasal spray Administer 1 spray into each nostril daily as needed 07/09/2016 1 HYDROcodone-acet aminophen (NORCO) 5-325 mg per tabletIndication s:Pain Take 1 tablet by mouth every 6 hours. 03/07/2011 8 promethazine (PHENERGAN) 25 mg tablet Take 25 mg by mouth every 6 hours. 03/07/2011 8 rizatriptan (MAXALT) 10 mg tabletIndication s:Migraine Take 10 mg by mouth once as [...] on filedocumented in this encounter Care Teams Commission Clerk Relationship Specialty Start Date End Date Newton Mendiola MD [address] [address] PCP - General 06/09/16 documented as of this encounter
--- OUTSIDE RECORDS SUMMARY | 2024-03-18 05:03 | XMS_ITS | Encounter Summary ---
Author Organization [facility] Healthcare Address [address] [place] [address] Care Team Providers Care Analyst Microbiology Lab Name Role Phone Newton Mendiola MD Primary Care Provider [phone] Encounter Details Date Type Department Care Team (Latest Contact Info) Description 07/23/2016 6:51 PM CDT - 07/24/2016 6:38 PM CDT Hospital Encounter [facility] [address] [place] [address] Kathy Hirsch MD [address] [place] [address] Joseph Connolly MD PhD [address] [place] [address] Discharge Disposition: Discharge to home or self care Social History Tobacco Use Types Packs/Day Years Used Date Smoking Tobacco: Never Assessed Comments Unknown Sex and Gender Information Value Date Recorded Sex Assigned at Not on file 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 Gender Identity Not on file Sexual Orientation Not on file documented as of this encounter Last Filed Vital Signs Vital Sign Reading Time Taken Comments Blood Pressure 126/56 07/24/2016 3:35 PM CDT Pulse 93 07/24/2016 3:35 PM CDT Temperature - - Respiratory Rate - - Oxygen Saturation 98% 07/24/2016 3:35 PM CDT Inhaled Oxygen Concentration - - Weight 88.5 kg (195 lb 1.4 oz) 07/24/2016 6:00 A M CDT Height 162.6 cm (5' 4 ) 07/24/2016 4:37 AM CDT Body Mass Index 33.49 07/24/2016 4:37 AM CDT documented in this encounter Medications [...] documented in this encounter Plan of Treatment Pending Results Name Type Priority Associated Diagnoses Date /Time Hemoglobin A1c Lab STAT 07/23/2016 7:47 PM CDT Scheduled Procedures Name Priority Associated Diagnoses Date/Ti me ESOPHAGOGASTRODUODENOSCOPY Nausea Colon cancer screening COLONOSCOPY Nausea Colon cancer screening documented as of this encounter Procedures Procedure Name Priority Date/Time Associated Diagnosis Comments XR CHEST 1 VIEW Routine 07/24/2016 10:55 AM CDT CARDIAC CATHETERIZATION Routine 07/25/19 17 5:00 AM CDT TROPONIN I STAT 07/24/2016 2:25 AM CDT B-TYPE NATRIURETIC PEPTIDE STAT 07/24/2016 2:25 AM CDT DIFFERENTIAL AUTO STAT 07/23/2016 7:4 7 PM CDT CBC WITH AUTO DIFFERENTIAL STAT 07/23/2016 7:47 PM CDT TROPONIN I STAT 07/23/2016 7:47 PM CDT TSH STAT 07/23/2016 7:47 PM CDT HEMOGLOBIN A1C STAT 07/23/2016 7:47 PM CDT LIPID PANEL STAT 07/23/2016 7:47 PM CDT BASIC METABOLIC PANEL STAT 07/23/2016 7:47 PM CDT documented in this encounter Results * XR Chest 1 Vw (07/24/2016 10:55 AM CDT) Anatomical Region Laterality Modality Body, Chest N/A Radiographic Fabiola ging 07/24/2016 10:5 5 AM CDT Narrative 07/24/2016 10:55 AM CDT DANNA CASTANO M.D. ANGELITO GARCIA M.D. FINAL REPORT The radiology attending physician has personally reviewed this study, and has reviewed and/or edited this written report and agrees with it. ACC# ??Date Time ??Exam [id number] July 24, 2016 05:55:00 [id number] Chest 1 view Frontal EXAMINATION: ?? Chest one view IMPRESSION: ?? Compared to 06/09/2016. There are new metallic objects overlying the mediastinum and projecting over the right main pulmonary artery, that may represent surgical wires or outside the patient. Recommend correlation with clinical history or 2 view chest radiograph. There is no focal consolidation, pleural effusion, pulmonary edema, or pneumothorax. Cardiomediastinal silhouette is within normal limit. Requested By: CLAUDIA ANGUIANO M.D. Dictated By: ?? ANGELITO GARCIA M.D. ??on Jul 24 2016 ??8:51A This document has been electronically signed by: DANNA CASTANO M.D. on Jul 24 2016 10:13A [id number] Procedure Note Miscellaneous, Not In File / Provider, MD Naomy - 08/09/2016 Koby SALCEDO M.D. FINAL REPORT The radiology attending physician has personally reviewed this study, and has reviewed and/or edited this written report and agrees with it. ACC# Date Time Exam [id number] July 24, 2016 05:55:00 [id number] Chest 1 view Frontal EXAMINATION: Chest one view IMPRESSION: Compared to 06/09/2016. There are new metallic objects overlying the mediastinum and projecting over the right main pulmonary artery, that may represent surgical wires or outside the patient. Recommend correlation with clinical history or 2 view chest radiograph. There is no focal consolidation, pleural effusion, pulmonary edema, or pneumothorax. Cardiomediastinal silhouette is within normal limit. Requested By: CLAUDIA ANGUIANO M.D. Dictated By: ANGELITO GARCIA M.D. on Jul 24 2016 8:51A This document has been electronically signed by: DANNA CASTANO M.D. on Jul 24 2016 10:13A [id number] us Not In File Miscellaneous IMG XR PROCEDURES Arlen l Result * Cardiac catheterization (07/24/2016 5:00 AM CDT) Anatomical Region Laterality Modality Other 07/24/2016 5:00 AM CDT Narrative 07/24/2016 5:00 AM CDT ? Patient: ?MYLES SAUCEDA ? Reg No: ? [id number] ? U H #: ?[id number] ? : ?1965 ? Attending: ??Bernardino Ludbrook, M.D. ? Dictating: ??Bernardino Ceja M.D. ? Service Dt: 07/24/2016 ? CARDIAC CATHETERIZATION REPORT FACILITY: ??[facility] This 41-year-old lady is a patient of Dr. Sly Cade and Dr. Joseph Connolly. ??She has a past history of Hodgkin lymphoma, status post radiation therapy to the chest. ??She presents now with a chest pain syndrome suspicious for ischemia. ??She also has a history of left heart failure and abnormal EKG with bundle-branch block. She underwent a nuclear stress test recently with a post-test episode of suspicious chest pain. ??The nuclear stress test was reportedly positive in the anterior distribution. Risk factors include former tobacco abuse. LABS Lab tests show creatinine of 0.7 and BUN of 19. EXAMINATION She is alert and well oriented. ??Cardiovascular exam is unremarkable. ??Lower limb pulses were intact. She was thus submitted for diagnostic evaluation. PROCEDURE Ms. Sauceda was brought to the [facility] holding area. ??She was prepared by the nursing staff in the usual manner. ??Informed consent was obtained and documented by the fellow in the usual manner. ??I saw her in the holding area and discussed the procedure with her and answered all of her questions. ??She agreed to proceed and was taken to room 4, was placed comfortably on the x-ray table, and prepped and draped in the usual manner for a groin approach. The right femoral head was identified fluoroscopically and marked. ??The right groin was anesthetized with 2% lidocaine in standard fashion. ??Easy percutaneous puncture of RFA with anterior wall micropuncture technique and easy insertion of a 4 sheath. ??The groin was hemostatic without bleeding or hematoma. ??The groin remained stable throughout the procedure in the [facility]. SELECTIVE CORONARY ARTERIOGRAMS Michael 4-Turkish 4-cm left and right coronary catheters. The JR4 was dropped into the LV for LV pressure measurement prior to right coronary arteriograms. Overall, there were no adverse events and she was comfortably sedated throughout. She received 25 mg of fentanyl and 1 mg of Versed at 9:54 and was monitored in the [facility] until 10:26 for a total of 32 minutes. ??There were no adverse events from sedation, and she was comfortable throughout. At the conclusion of the procedure, I discussed the results with her. ??I will discuss them with Dr. Cade and Dr. Connolly and any family members who might be here. There was good right groin hemostasis and distal pulses when she left the [facility]. ??The sheath will be pulled in the holding area and hemostasis achieved by compression. LEFT HEART CATHETERIZATION LV pressure 140/19. ??On pullback, the aorta was 145/88 without aortic valve gradient. SELECTIVE CORONARY ARTERIOGRAMS Left Coronary System: ??Large circumflex dominant left coronary system but with a right posterior descending so overall this is a right dominant picture. The left main and left main bifurcation show no significant obstruction. The LAD-diagonal system is normal without angiographically significant obstruction. The circumflex marginal is a huge system with large inferior branches and no significant disease. Right Coronary System: ??Modest-sized right coronary system with a moderate-sized right posterior descending and a very small RPD. ??The posterolateral circulation is derived from the large inferior circumflex branches. DIAGNOSTIC IMPRESSIONS 1. ??Moderate elevation of left ventricular end diastolic pressure (19 mmHg). 2. ??Mildly elevated systolic pressures (145/88). ??No angiographically significant coronary disease. THERAPEUTIC RECOMMENDATIONS In view of the findings discussed above, further management of her chest pain will be undertaken by the [facility] under the care of Dr. Connolly, and Dr. Sly Cade. Electronically Authenticated and Edited by: Bernardino Ceja MD On 07/27/2016 12:55 PM CDT Bernardino Ceja M.D. PAL:ams ??#[id number] Editing MT: ??ADM DD: ??07/24/2016 10:10 AM TD: ??07/25/2016 11:28 AM cc: Bernardino Ceja M.D. Procedure Note Miscellaneous, Not In File - 08/09/2016 Patient: MYLES SAUCEDA Reg No: [id number] [facility] #: [id number] : 1965 Attending: Bernardino Ceja M.D. Dictating: Bernardino Ceja M.D. Service Dt: 07/24/2016 CARDIAC CATHETERIZATION REPORT FACILITY: [facility] This 41-year-old lady is a patient of Dr. Sly Cade and Dr. Joseph Connolly. She has a past history of Hodgkin lymphoma, status postradiation therapy to the chest. She presents now with a chest pain syndromesuspicious for ischemia. She also has a history of left heart failure and abnormalEKG with bundle-branch block. She underwent a nuclear stress test recently with a post-test episode of suspicious chest pain. The nuclear stress test was reportedly positive inthe anterior distribution. Risk factors include former tobacco abuse. LABS Lab tests show creatinine of 0.7 and BUN of 19. EXAMINATION She is alert and well oriented. Cardiovascular exam is unremarkable.Lower limb pulses were intact. She was thus submitted for diagnostic evaluation. PROCEDURE Ms. Sauceda was brought to the [facility] holding area. She was preparedby the nursing staff in the usual manner. Informed consent was obtainedand documented by the fellow in the usual manner. I saw her in the holdingarea and discussed the procedure with her and answered all of her questions.She agreed to proceed and was taken to room 4, was placed comfortably on thex-ray table, and prepped and draped in the usual manner for a groin approach. The right femoral head was identified fluoroscopically and marked. Theright groin was anesthetized with 2% lidocaine in standard fashion. Easy percutaneous puncture of RFA with anterior wall micropuncture techniqueand easy insertion of a 4 sheath. The groin was hemostatic without bleedingor hematoma. The groin remained stable throughout the procedure in the CathLab. SELECTIVE CORONARY ARTERIOGRAMS Michael 4-Turkish 4-cm left and right coronary catheters. The JR4 was dropped into the LV for LV pressure measurement prior toright coronary arteriograms. Overall, there were no adverse events and she was comfortably sedated throughout. She received 25 mg of fentanyl and 1 mg of Versed at 9:54 and wasmonitored in the [facility] until 10:26 for a total of 32 minutes. There were noadverse events from sedation, and she was comfortable throughout. At the conclusion of the procedure, I discussed the results with her. Iwill discuss them with Dr. Cade and Dr. Connolly and any family members whomight be here. There was good right groin hemostasis and distal pulses when she left theCat Lab. The sheath will be pulled in the holding area and hemostasisachieved by compression. LEFT HEART CATHETERIZATION LV pressure 140/19. On pullback, the aorta was 145/88 without aorticvalve gradient. SELECTIVE CORONARY ARTERIOGRAMS Left Coronary System: Large circumflex dominant left coronary system butwith a right posterior descending so overall this is a right dominantpicture. The left main and left main bifurcation show no significant obstruction. The LAD-diagonal system is normal without angiographically significant obstruction. The circumflex marginal is a huge system with large inferior branches andno significant disease. Right Coronary System: Modest-sized right coronary system with a moderate-sized right posterior descending and a very small RPD. The posterolateral circulation is derived from the large inferior circumflex branches. DIAGNOSTIC IMPRESSIONS 1. Moderate elevation of left ventricular end diastolic pressure (19mmHg). 2. Mildly elevated systolic pressures (145/88). No angiographically significant coronary disease. THERAPEUTIC RECOMMENDATIONS In view of the findings discussed above, further management of her chestpain will be undertaken by the [facility] under the care of , and Dr. Sly Cade. Electronically Authenticated and Edited by: Bernardino Ceja MD On 07/27/2016 12:55 PM CDT Bernardino Ceja M.D. PAL:[facility] #[id number] Editing MT: TD: 07/25/2016 11:28 AM cc: Bernardino Ceja M.D. us Not In File Miscellaneous CV CARDIAC CATH PROCED URES Final Result * Troponin I (07/24/2016 2:25 AM CDT) Troponin I <0.03 0.00 - 0.03 ng/mL [facility] Comment: Interpretive Data Serial determinations are recommended for the diagnosis of myocardial infarction ([place] Definition of Myocardial Infarction. ??J Am Hector Cardiol 2012;60:1581-98). Current interpretive data was last revised on 13. Blood specimen (specimen) 07/24/2016 2:25 AM CDT 07/24/2016 2:36 AM CDT us Mal Silverman MD PhD LAB BLOOD ORDERABLES Final Resu lt Performing Organization Address [facility] Co de Phone Number [facility] [place] [address] * B-type natriuretic peptide (07/24/2016 2:25 AM CDT) Pathologist [facility] B-Type Natriuretic Peptide (BNP) 13 0 - 100 pg/mL [facility] Blood specimen (specimen) 07/24/2016 2:25 AM CDT 07/24/2016 2:36 AM CDT Mal Silverman MD PhD LAB BLOOD ORDERABLES Final Resu Performing Organization Address [facility] de Phone Number [facility] [place] [address] * (ABNORMAL) Lipid panel (07/23/2016 7:47 PM CDT) Cholesterol 204(H) 30 - 200 mg/dL [facility] Comment: Interpretive Data Desirable: ?<200 mg/dL Borderline high: ??200-239 mg/dL High: ? > or = 240 mg/dL Literature Reference: National Cholesterol Education Program (NCEP) Expert Panel on Detection, Evaluation, and Treatment of High Blood Cholesterol in Adults (Adult Treatment Panel III). ??Circulation 2004; 110:227. Current interpretive data was last revised on 2015. Triglycerides 174(H) 0 - 150 mg/dL [facility] Comment: Interpretive Data Desirable: ? < 150 mg/dL Borderline High: ? 150 - 199 mg/dL High: ?200 - 499 mg/dL Very High: ? > or = 499 mg/dL Literature Reference: See Cholesterol Current interpretive data was last revised on 2015. HDL 45 >=40 mg/dL [facility] Comment: Interpretive Data Less than 40 mg/dL - low; A major risk factor for heart disease. Greater than or equal to 60 mg/dL - High; ??considered protective of heart disease. Literature Reference: See Cholesterol Current interpretive data was last revised on 2015. LDL, calculated 124 10 - 129 mg/dL [facility] Comment: Interpretive Data Optimal: ? < 100 mg/dL Near Optimal: ?100 - 129 mg/dL Borderline High: ?? 130 - 159 mg/dL High: ?160 - 189 mg/dL Very high: ? > or = 190 mg/dL Literature Reference: See Cholesterol Current interpretive data was last revised on 2015. Non-HDL Cholesterol 159 mg/dL [facility] Comment: Interpretive Data When triglycerides are >200 mg/dL, non-HDL C is a secondary target of therapy, with a goal 30 mg/dL higher than the identified LDL-C goal. Reference: ??See Cholesterol Reference. Current interpretive data was last revised 2015. Blood specimen (specimen) 07/23/2016 7:47 PM CDT 07/23/2016 8:03 PM CDT us Orlando Ho MD LAB BLOOD ORDERABLES Final Res ult [facility] Department [place] [address] * TSH (07/23/2016 7:47 PM CDT) [facility] Thyroid Stimulating Hormone 3.22 0.30 - 4.20 mcIUnit/mL [facility] Comment: Interpretive Data Hyperthyroid: ??<0.1 mcIUnit/mL Hypothyroid: ??>12.0 mcIUnit/mL Current interpretive data was last revised on 00. Blood specimen (specimen) 07/23/2016 7:47 PM CDT 07/23/2016 8:03 PM CDT Orlando Ho MD LAB BLOOD ORDERABLES Final Res ult Performing Organization Address City/[facility]/ZIP Co de Phone Number [facility] [place] [address] * (ABNORMAL) Basic metabolic panel (07/23/2016 7:47 PM CDT) [facility] Sodium 142 135 - 145 mmol/L [facility] Potassium, pl 4.1 3.3 - 4.9 mmol/L [facility] Chloride 106 97 - 110 mmol/L [facility] Comment:fixed result mapping CO2 17(L) 22 - 32 mmol/L [facility] BUN 19 8 - 25 mg/dL [facility] Glucose 110 70 - 199 mg/dL [facility] Creatinine 0.70 0.60 - 1.10 mg/dL [facility] Calcium 9.5 8.5 - 10.3 mg/dL [facility] Anion gap 19(H) 2 - 15 mmol/L [facility] Blood specimen (specimen) 07/23/2016 7:47 PM CDT 07/23/2016 8:03 PM CDT us Orlando Ho MD LAB BLOOD ORDERABLES Final Res ult Performing Organization Address City/[facility]/ZIP Co de Phone Number [facility] [place] [address] * Troponin I (07/23/2016 7:47 PM CDT) [facility] Troponin I <0.03 0.00 - 0.03 ng/mL [facility] Comment: Interpretive Data Serial determinations are recommended for the diagnosis of myocardial infarction ([place] Definition of Myocardial Infarction. ??J Am Hector Cardiol 2012;60:1581-98). Current interpretive data was last revised on 13. Blood specimen (specimen) 07/23/2016 7:47 PM CDT 07/23/2016 8:03 PM CDT us Orlando Ho MD LAB BLOOD ORDERABLES Edited Re sult - Final Performing Organization Address [facility] Co de Phone Number [facility] [place] [address] * (ABNORMAL) Differential, auto (07/23/2016 7:47 PM CDT) Neutrophil pct 45.5 % [facility] Imm gran pct 0.2 % [facility] Lymphocyte pct 44.7 % [facility] Monocyte pct 7.8 % [facility] Eosinophil pct 1.1 % [facility] Basophil pct 0.7 % [facility] Neutrophil abs 4.13 1.70 - 6.50 K/cumm [facility] Imm gran abs 0.02 0.00 - 0.10 K/cumm [facility] Lymphocyte abs 4.06(H) 0.80 - 3.30 K/cumm [facility] Monocyte abs 0.71 0.20 - 0.80 K/cumm [facility] Eosinophil abs 0.10 0.00 - 0.50 K/cumm [facility] Basophil abs 0.06 0.00 - 0.10 K/cumm [facility] Blood specimen (specimen) 07/23/2016 7:47 PM CDT 07/23/2016 8:03 PM CDT Orlando Ho MD LAB BLOOD ORDERABLES Final Res ult Performing Organization Address [facility] Co de Phone Number [facility] [place] [address] * (ABNORMAL) CBC with auto differential (07/23/2016 7:47 PM CDT) WBC 9.08 3.80 - 9.90 K/cumm [facility] RBC 4.45 3.90 - 5.20 M/cumm [facility] Hgb 12.8 11.9 - 15.5 g/dL [facility] Hct 38.2 35.6 - 45.5 % [facility] MCV 85.8 81.3 - 96.4 fL [facility] MCH 28.8 27.1 - 33.3 pg [facility] MCHC 33.5 32.3 - 35.7 g/dL [facility] RDW CV 13.4 11.1 - 14.9 % [facility] RDW SD 42.0 35.7 - 48.1 fL [facility] Plt 408(H) 150 - 400 K/cumm [facility] MPV 9.0(L) 9.1 - 12.3 fL [facility] NRBC 0.0 0.0 - 0.2 % [facility] NRBC abs 0.00 0.00 - 0.01 K/cumm [facility] Blood specimen (specimen) 07/23/2016 7:47 PM CDT 07/23/2016 8:03 PM CDT us Orlando Ho MD LAB BLOOD ORDERABLES Final Res ult [facility] Department [place] [address] documented in this encounter Visit Diagnoses Not on filedocumented in this encounter Care Teams Analyst Microbiology Lab Relationship Specialty Start Date End Date Newton Mendiola MD [address] [place] [address] [address] [place] [address] PCP - General 06/09/16 documented as of this encounter
--- OUTSIDE RECORDS SUMMARY | 2024-03-18 05:03 | XMS_ITS | Encounter Summary ---
Author Organization [facility] Healthcare Address [address] [place] [address] Care Team Providers Care Shader And Toner Name Role Phone Shanice Mendiola MD Primary Care Provider [phone] Encounter Details Date Type Department Care Team (Latest Contact Info) Description 08/27/2016 9:01 AM CDT - 08/27/2016 11:59 PM T Hospital Encounter [facility] OP INTERIM [phone] Shanice Mendiola MD [address] [address] Discharge Disposition: Discharge to home or self care Social History Tobacco Use Types Packs/Day Years Used Date Smoking Tobacco: Never Assessed Comments Unknown Sex and Gender Information Value Date Recorded Sex Assigned at Not on file 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 KIMBERLY COOPER M.D. FINAL REPORT The radiology attending physician has personally reviewed this study, and has reviewed and/or edited this written report and agrees with it. ACC# ??Date Time ??Exam [id number] Aug 27, 2016 09:14:00 [id number] Elbow minimum 3 views R EXAMINATION: ?Right elbow minimum 3 views HISTORY: ??Right elbow tendinitis. FINDINGS: ?? Three views of the right elbow are submitted for interpretation without comparison. The alignment of the right elbow is normal. There is no fracture or dislocation. Right elbow joint spaces are normal. There is no right elbow effusion. IMPRESSION: ?? Normal radiographic examination of the right elbow. Requested By: SHANICE MENDIOLA ??M.D. ? Dictated By: ?? KIMBERLY COOPER M.D. ??on Aug 27 2016 ??9:26A This document has been electronically signed by: BERNADETTE MCCORD M.D. on Aug 27 2016 ??9:30A [id number] Procedure Note Miscellaneous, Not In File / Provider, MD Naomy - 08/27/2016 Koby MCGINNIS M.D. FINAL REPORT The radiology attending physician has personally reviewed this study, and has reviewed and/or edited this written report and agrees with it. ACC# Date Time Exam [id number] Aug 27, 2016 09:14:00 [id number] Elbow minimum 3 views R EXAMINATION: Right elbow minimum 3 views HISTORY: Right elbow tendinitis. FINDINGS: Three views of the right elbow are submitted for interpretation without comparison. The alignment of the right elbow is normal. There is no fracture or dislocation. Right elbow joint spaces are normal. There is no right elbow effusion. IMPRESSION: Normal radiographic examination of the right elbow. Requested By: SHANICE MENDIOLA M.D. Dictated By: KIMBERLY COOPER M.D. on Aug 27 2016 9:26A This document has been electronically signed by: BERNADETTE MCCORD M.D. on Aug 27 2016 9:30A [id number] us Not In File Miscellaneous IMG XR PROCEDURES Arlen l Result documented in this encounter Visit Diagnoses Not on filedocumented in this encounter Care Teams Shader And Toner Relationship Specialty Start Date End Date Shanice Mendiola MD [address] [facility] [address] [place] [address] PCP - General 06/09/16 documented as of this encounter
--- OUTSIDE RECORDS SUMMARY | 2024-03-18 05:03 | XMS_ITS | Encounter Summary ---
Author Organization [facility] Healthcare Address [address] [place] [address] Care Team Providers Care Beehive Kiln Supervisor Name Role Phone Newton Mendiola MD Primary Care Provider [phone] Encounter Details Date Type Department Care Team (Latest Contact Info) Description 05/26/2017 1:42 PM CDT - 05/26/2017 11:59 PM CDT Hospital Encounter 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
--- OUTSIDE RECORDS SUMMARY | 2024-03-18 05:03 | XMS_ITS | Encounter Summary ---
Author Organization [facility] Healthcare Address [address] [place] [address] Care Team Providers Care Invas Tech Name Role Phone Newton Mendiola MD Primary Care Provider [phone] Encounter Details Date Type Department Care Team (Late st Contact Info) Description 06/25/2018 1:30 PM CDT Lab [facility] [address] [place] [address] Sly Cade MD [address] [facility] [address] [place] [address] LBBB (left bundle branch block); LV dysfunction; Mixed hyperlipidemia Discharge Disposition: Discharge to home or self care Social History Tobacco Use Types Packs/Day Years Used Date Smoking Tobacco: Former Smokeless Tobacco: Never Alcohol Use Standard Drinks/Week Comments No 0 (1 standard drink = 0.6 oz pur e alcohol) Comments Unknown Sex and Gender Information Value Date Recorded Sex Assigned at Not on file Legal Sex Female 7:55 AM MEDICAL IMAGING TECH Gender Identity Not on file Sexual Orientation [...] Procedure Name Priority Date/Time Associated Diagnosis Comments LIPID PANEL Routine 06/25/2018 3:00 PM CDT LBBB (left bundle branch block) LV dysfunction Mixed hyperlipidemia documented in this encounter Results * (ABNORMAL) Lipid panel (06/25/2018 3:00 PM CDT) [facility] Cholesterol 159 30 - 199 mg/dL KEKE KIM Comment: Interpretive Data Ages < or = 19 years ??Acceptable: ? <170 mg/dL ??Borderline high: ??170-199 mg/dL ??High: ? >or= 200 mg/dL Ages > or = 20 years ??Desirable: ?<200 mg/dL ??Borderline high: ??200-239 mg/dL ??High: ? >or= 240 mg/dL Literature References: 1. Expert Panel on Integrated Guidelines for Cardiovascular Health and Risk Reduction in Children and Adolescents. Pediatrics 2011;128:S213 2. NCEP Expert Panel. Circulation 2004;110:227 Current Interpretive Data was last revised on 2017. Triglycerides 145 <=149 mg/dL KEKE KIM Comment: Interpretive Data Ages < or = 9 years ??Acceptable: ? <75 mg/dL ??Borderline high: ??75-99 mg/dL ??High: ? >or= 100 mg/dL Ages 10 to 20 years ??Acceptable: ? <90 mg/dL ??Borderline high: ??90-129 mg/dL ??High: ? >or= 130 mg/dL Ages > or = 20 years ??Desirable: ?<150 mg/dL ??Borderline high: ??150-199 mg/dL ??High: ? 200-499 mg/dL ?Very high: ?? >or= 499 mg/dL Literature References: 1. Expert Panel on Integrated Guidelines for Cardiovascular Health and Risk Reduction in Children and Adolescents. Pediatrics 2011;128:S213 2. NCEP Expert Panel. Circulation 2004;110:227 Current Interpretive Data was last revised on 2017. HDL 31(L) >=40 mg/dL KEKE KIM Comment: Interpretive Data Ages < or = 19 years ??Acceptable: ? >45 mg/dL ??Borderline low: ?? 40-45 mg/dL ??Low: ? <40 mg/dL Ages > or = 20 years ??Desirable: ?>or= 60 mg/dL ??Low: ? <40 mg/dL Literature References: 1. Expert Panel on Integrated Guidelines for Cardiovascular Health and Risk Reduction in Children and Adolescents. Pediatrics 2011;128:S213 2. NCEP Expert Panel. Circulation 2004;110:227 Current Interpretive Data was last revised on 2017. LDL, calculated 99 <=129 mg/dL KEKE KIM Comment: Interpretive Data Ages < or = 19 years ??Acceptable: ? <110 mg/dL ??Borderline high: ??110-129 mg/dL ??High: ?>or= 130 mg/dL Ages > or = 20 years ??Optimal: ? <100 mg/dL ??Near optimal: ?100-129 mg/dL ??Borderline high: ?? 130-159 mg/dL ??High: ?>160 mg/dL Literature References: 1. Expert Panel on Integrated Guidelines for Cardiovascular Health and Risk Reduction in Children and Adolescents. Pediatrics 2011;128:S213 2. NCEP Expert Panel. Circulation 2004;110:227 Current Interpretive Data was last revised on 2017. Non-HDL Cholesterol 128 mg/dL KEKE KIM Comment: Interpretive Data Ages < or = 19 years ??Acceptable: ?<120 mg/dL ??Borderline high: ??120-144 mg/dL ??High: ?>145 mg/dL Ages > or = 20 years ??When triglycerides are >200 mg/dL, Non-HDL cholesterol is a secondary target of ? therapy with treatment goals that are 30 mg/dL greater than the LDL cholesterol target. ? Literature References: 1. Expert Panel on Integrated Guidelines for Cardiovascular Health and Risk Reduction in Children and Adolescents. Pediatrics 2011;128:S213 2. NCEP Expert Panel. Circulation 2004;110:227 Current Interpretive Data was last revised on 2017. Chol/HDL ratio 5 KEKE KIM Blood specimen (specimen) 06/25/2018 3:00 PM CDT 06/25/2018 3:00 PM CDT Narrative KEKE ADYWCH - 06/25/2018 4:07 PM CDT Sly Cade MD LAB BLOOD ORDERABLES Final Re sult KEKE GARSIAWCH [address] [facility]. Department of Laboratories [place], [place] [id number] documented in this encounter Visit Diagnoses Diagnosis LBBB (left bundle branch block) Other left bundle branch block LV dysfunction Left heart failure Mixed hyperlipidemia documented in this encounter Care Teams Invas Tech Relationship Specialty Start Date End Date Newton Mendiola MD [address] [facility] [address] [place], [place] [id number] PCP - General 06/09/16 documented as of this encounter
--- OUTSIDE RECORDS SUMMARY | 2024-03-18 05:03 | XMS_ITS | Encounter Summary ---
Author Organization [facility] Healthcare Address [address] [place] [address] Care Team Providers Care Mainframe Systems Administrator Name Role Phone Shanice Mendiola MD Primary Care Provider [phone] Encounter Details Date Type Department Care Team (Latest Contact Info) Description 06/09/2016 11:27 AM CDT - 06/09/2016 11:59 PM T Hospital Encounter [facility] OP INTERIM [phone] Shanice Mendiola MD [address] [address] Discharge Disposition: Discharge to home or self care Social History Tobacco Use Types Packs/Day Years Used Date Smoking Tobacco: Never Assessed Comments Unknown Sex and Gender Information Value Date Recorded Sex Assigned at Not on file Legal Sex Female 7:55 AM 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 03/07/2011 02/25/2018 promethazine (PHENERGAN) 25 mg tablet Take 25 mg by mouth every 6 hours. 03/07/2011 02/25/2018 documented as of this encounter Discharge Disposition Disposition Code Departure Means Destination Discharge to home or self care documented in this encounter Plan of Treatment Scheduled Procedures Name Priority Associated Diagnoses Date/Ti me ESOPHAGOGASTRODUODENOSCOPY Nausea Colon cancer screening COLONOSCOPY Nausea Colon cancer screening documented as of this encounter Procedures Procedure Name Priority Date/Time Associated Diagnosis Comments XR CHEST PA LATERAL 2 VIEWS Routine 06/09/2016 5:02 PM CDT documented in this encounter Results * XR Chest Pa Lateral 2 Vw (06/09/2016 5:02 PM CDT) Anatomical Region Laterality Modality Body, Chest N/A Radiographic Fabiola ging 06/09/2016 5:02 PM CDT Narrative 06/09/2016 5:02 PM CDT Koby BARAJAS M.D. FINAL REPORT The radiology attending physician has personally reviewed this study, and has reviewed and/or edited this written report and agrees with it. ACC# ??Date Time ??Exam [id number] Jun 09, 2016 12:02:00 [id number] Chest 2 views Frontl ??and ??Lat EXAMINATION: ?? Chest two views, frontal and lateral IMPRESSION: ?? No prior studies are available for comparison. There is biapical pleural scarring. There is no focal pneumonic consolidation, pneumothorax, or pleural effusion. The cardiac silhouette and mediastinal contours are within normal limits. Requested By: SHANICE MENDIOLA ??Koby ? Dictated By: ?? FIORDALIZA QUIROZ M.D. ??on Jun 09 2016 ??2:05P This document has been electronically signed by: ABHAY CHRISTENSEN M.D. on Jun 09 2016 ??4:13P Procedure Note Miscellaneous, Notinfile / Provider, MD Naomy - 08/06/2016 Koby BARAJAS M.D. FINAL REPORT The radiology attending physician has personally reviewed this study, and has reviewed and/or edited this written report and agrees with it. ACC# Date Time Exam [id number] Jun 09, 2016 12:02:00 [id number] Chest 2 views Frontl and Lat EXAMINATION: Chest two views, frontal and lateral IMPRESSION: No prior studies are available for comparison. There is biapical pleural scarring. There is no focal pneumonic consolidation, pneumothorax, or pleural effusion. The cardiac silhouette and mediastinal contours are within normal limits. Requested By: SHANICE MENDIOLA M.D. Dictated By: FIORDALIZA UQIROZ M.D. on Jun 09 2016 2:05P This document has been electronically signed by: ABHAY CHRISTENSEN M.D. on Jun 09 2016 4:13P us Not In File Miscellaneous IMG XR PROCEDURES Arlen l Result documented in this encounter Visit Diagnoses Not on filedocumented in this encounter Care Teams Mainframe Systems Administrator Relationship Specialty Start Date End Date Shanice Mendiola MD [address] [address] PCP - General 06/09/16 documented as of this encounter
--- OUTSIDE RECORDS SUMMARY | 2024-03-18 05:03 | XMS_ITS | Encounter Summary ---
Author Organization [facility] Address [address] [place] [address] Phone Care Team Providers Care Alarm Installer Name Role Phone Newton Mendiola MD Primary Care Provider [phone] Reason for Visit * Diagnostic Imaging (Routine) - Closed Specialty Diagnoses / Procedures Referred By Contac t Referred To Contact Diagnoses LBBB (left bundle branch block) Adverse effect of radiation, sequela LV dysfunction Palpitations Procedures Stress Echo Pharmacologic Sly Cade MD Phone: tel: fax: [facility] Referral ID Status Reason Start Date Expiration Date Visits Re quested Visits Authorized [id number] Closed 02/26/2018 04/12/2018 1 1 Encounter Details Date Type Department Care Team (Late st Contact Info) Description 03/12/2018 11:15 AM INDUSTRIAL RELATIONS COMMISSIONER Ancillary Procedure [facility] [address] [facility] [address] [place] [address] Sly Cade MD [address] [place] [address] Social History Tobacco Use Types Packs/Day Years Used Date Smoking Tobacco: Former Smokeless Tobacco: Never Alcohol Use Standard Drinks/Week Comments No 0 (1 standard drink = 0.6 oz pur e alcohol) Comments Unknown Sex and Gender Information Value Date Recorded Sex Assigned at Not on file Legal Sex Female 7:55 AM INDUSTRIAL RELATIONS COMMISSIONER Gender Identity Not on file Sexual Orientation Not on file documented as of this encounter Plan of Treatment Scheduled Procedures Name Priority Associated Diagnoses Date/Ti me ESOPHAGOGASTRODUODENOSCOPY Nausea Colon cancer screening COLONOSCOPY Nausea Colon cancer screening documented as of this encounter Procedures Procedure Name Priority Date/Time Associated Diagnosis Comments STRESS ECHO PHARMACOLOGIC W DOPPLER/CF W CONTRAST Routine 03/12/2018 12:30 PM INDUSTRIAL RELATIONS COMMISSIONER LBBB (left bundle branch block) Adverse effect of radiation, sequela LV dysfunction Palpitations documented in this encounter Visit Diagnoses Not on filedocumented in this encounter Administered Medications Inactive Administered Medications - up to 3 most recent administrations Medication Order MAR Action Action Date Dose Rate Site DOBUTamine in dextrose 5% (DOBUTREX) 250 mg/250 mL (1000 mcg/mL) infusion (premix) 40 mcg/kg/min ? 90.7 kg (217.68 mL/hr, rounded to 217.7 mL/hr), intravenous, Continuous, Starting on Thu03/12/18 at 1315, Intra-Procedure (CV) New Bag 03/12/2018 12:12 PM INDUSTRIAL RELATIONS COMMISSIONER 40 mcg/kg/min 217.7 mL/hr esmolol (BREVIBLOC) injection 20 mg 20 mg, intravenous, Administer over 1 Minutes, Once, On Thu03/12/18 at 1315, For 1 dose, Intra-Procedure (CV) Given 03/12/2018 12:19 PM INDUSTRIAL RELATIONS COMMISSIONER 20 mg perflutren protein-a (OPTISON) 3 mL in sodium chloride 0.9% 8 mL syringe 1-8 mL, intravenous, Once in imaging, contrast, Starting on Thu03/12/18 at 1239, For 1 dose, Intra-Procedure (CV) Given 03/12/2018 12:10 PM INDUSTRIAL RELATIONS COMMISSIONER 4 mL documented in this encounter Care Teams Alarm Installer Relationship Specialty Start Date End Date Newton Mendiola MD [address] [facility] [address] [place] [address] PCP - General 06/09/16 documented as of this encounter
--- OUTSIDE RECORDS SUMMARY | 2024-03-18 05:03 | XMS_ITS | Encounter Summary ---
Author Organization [facility] Address [address] [place] [address] Phone Care Team Providers Care Supervisor Beet End Name Role Phone Shanice Mendiola MD Primary Care Provider [phone] Reason for Referral * (Routine) - Closed Specialty Diagnoses / Procedures Referred By Contac t Referred To Contact Diagnoses Chest pain due to myocardial ischemia, unspecified ischemic chest pain type Procedures ECG 12 lead Sly Cade MD Phone: tel: fax: Referral ID Status Reason Start Date Expiration Date Visits Re quested Visits Authorized [id number] Closed 10/02/2017 04/13/2019 1 1 Reason for Visit * Reason Comments Follow-up Encounter Details Date Type Department Care Team (Late st Contact Info) Description 10/02/2017 11:15 AM CDT Office Visit [facility] Cardiology [facility] Medical Office Building [address] [place] [phone] Sly Cade MD [address] [facility] [address] [place], [place] [id number] Chest pain due to myocardial ischemia, unspecified ischemic chest pain type (Primary Dx); LV dysfunction; Left bundle branch block Social History Tobacco Use Types Packs/Day Years Used Date Smoking Tobacco: Former Smokeless Tobacco: Never Comments Unknown Sex and Gender Information Value Date Recorded Sex Assigned at Not on file Legal Sex Female 7:55 AM CHIEF OF FIELD OPERATIONS Gender Identity Not on file Sexual Orientation Not on file documented as of this encounter Last Filed Vital Signs Vital Sign Reading Time Taken Comments Blood Pressure 115/71 10/02/2017 12:48 PM CDT Pulse 74 10/02/2017 12:48 PM CDT Temperature - - Respiratory Rate - - Oxygen Saturation 97% 10/02/2017 12:48 PM CDT Inhaled Oxygen Concentration - - Weight 86.4 kg (190 lb 8 oz) 10/02/2017 12:48 PM CDT Height 162.6 cm (5' 4 ) 10/02/2017 12:48 PM CDT Body Mass Index 32.7 10/02/2017 12:48 PM CDT documented in this encounter Progress Notes * Sly Cade MD - 10/02/2017 12:00 AM CDT Date: 10/02/2017 Patient Name: KATY SAUCEDA Date of : 1965 Date of Visit: 10/02/2017 HISTORY OF PRESENT ILLNESS: Today we have seen Mrs. Katy Sauceda, and have learned that on the day after I saw her, shortly after taking the Imdur, she had a severe spell of chest discomfort radiating down her left arm. She was nauseous, it lasted 30 minutes and gradually subsided. Actually, though, she had to go home and rest for the rest of the day. This occurred approximately 45 minutes after taking the pill, and it was only a half a pill, so we cannot be sure whether it had really kicked in at that point. Otherwise, interestingly, she feels a sense of wellness and has had no more spells of discomfort whatsoever. On 2 instances, she had irregular heartbeats that only lasted several minutes that were spontaneous and unaccompanied by any other complaints. MEDICINES: Basically remain the same, includin. Aspirin 81 mg a day. 2. Toprol-XL 50 mg a day. 3. Imdur 30 Mg a day. PHYSICAL EXAMINATION: GENERAL: Indicates a healthy-appearing female, comfortable. NECK: There is no jugular venous distention at 45 degrees. The carotids are brisk and equal withoutbruit. LUNGS: Chest is clear. HEART: The apical impulse is not enlarged nor sustained. There are no significant murmurs. EXTREMITIES: There is no clubbing, cyanosis, or peripheral edema. LABORATORY DATA: The EKG is pending. IMPRESSION: Mrs. Sauceda had a rather protracted spell of chest discomfort that had anginal features. It [id number] minutes after taking a half of an Imdur. I am not sure if the Imdur was causative or ineffectivebecause of the time of the dosing. We reviewed her heart catheterization which had shown no coronary artery disease. In this setting, the plans will be as follows: 1. EKG. 2. Continue current medicine. 3. Return visit in 4 months. Mrs. Sauceda knows to call if she has another spell so we could obtain a troponin and see her at the same time. PROBLEM LIST: 1. Chest pain as above. 2. Left bundle branch block. 3. Mild left ventricular dysfunction. 4. Possible anterior myocardial infarction in the past. 5. Ectopy. 6. Clean coronaries. 7. Status post hiatal hernia repair. 8. Total body radiation for Hodgkin's. ELECTRONICALLY SIGNED - 10/05/2017 03:50 PM Sly Cade M.D., F.A.C.C. Professor, Medicine /eb cc: SHANICE MENDIOLA MD / documented in this encounter Plan of Treatment Scheduled Procedures Name Priority Associated Diagnoses Date/Ti me ESOPHAGOGASTRODUODENOSCOPY Nausea Colon cancer screening COLONOSCOPY Nausea Colon cancer screening documented as of this encounter Procedures Procedure Name Priority Date/Time Associated Diagnosis Comments ECG 12-LEAD Routine 10/02/2017 Chest pain due to myocardial ischemia, unspecified ischemic chest pain type documented in this encounter Results * ECG 12 lead (10/02/2017) Sly Cade MD ECG ORDERABLES Edited Result - Final documented in this encounter Visit Diagnoses Diagnosis Chest pain due to myocardial ischemia, unspecified ischemic chest pain type- Primary LV dysfunction Left heart failure Left bundle branch block Other left bundle branch block documented in this encounter Care Teams Supervisor Beet End Relationship Specialty Start Date End Date Shanice Mendiola MD [address] [facility] [address] [place] [address] PCP - General 06/09/16 documented as of this encounter
--- OUTSIDE RECORDS SUMMARY | 2024-03-18 05:03 | XMS_ITS | Encounter Summary ---
Author Organization [facility] Healthcare Address [address] [place] [address] Care Team Providers Care National Stormwater Leader Name Role Phone Shanice Mendiola MD Primary Care Provider [phone] Encounter Details Date Type Department Care Team (Late st Contact Info) Description 01/05/2017 4:03 PM CDT - 01/05/2017 6:56 PM CDT Emergency [facility] Emergency Department [address] [place] [address] Gabbi Obrienman Discharge Disposition: Discharge to home or self care Social History Tobacco Use Types Packs/Day Years Used Date Smoking Tobacco: Never Assessed Comments Unknown Sex and Gender Information Value Date Recorded Sex Assigned at Not on file Legal Sex Female 7:55 AM CAREGIVERS NON MEDICAL Gender Identity Not on file Sexual Orientation [...] Priority Date/Time Associated Diagnosis Comments XR CHEST PORTABLE Routine 01/05/2017 9:4 1 PM CDT EGFR STAT 01/05/2017 4:39 PM CDT DIFFERENTIAL AUTO STAT 01/05/2017 4:3 9 PM CDT PRO B-TYPE NATRIURETIC PEPTIDE STAT 01/05/2017 4:39 PM CDT CBC WITH AUTO DIFFERENTIAL STAT 01/05 4:39 PM CDT APTT STAT 01/05/2017 4:39 PM CDT PROTIME-INR STAT 01/05/2017 4:39 PM CDT TROPONIN T STAT 01/05/2017 4:39 PM CDT MAGNESIUM STAT 01/05/2017 4:39 PM CDT LIPASE STAT 01/05/2017 4:39 PM CDT COMPREHENSIVE METABOLIC PANEL STAT 01/05/2017 4:39 PM CDT ELECTROCARDIOGRAPHY (ECG) 01/05/2017 DISCHARGE LABORATORY CUMULATIVE REPORT 01/05/2017 12:00 AM CDT documented in this encounter Results * XR Chest Portable (01/05/2017 9:41 PM CDT) Anatomical Region Laterality Modality Body N/A Radiographic Fabiola ging 01/05/2017 9:41 PM CDT Narrative 01/05/2017 9:46 PM CDT XR Chest Portable ? [id number] ??Acc#: ??[id number] DATE OF EXAM: ??Jan 05 2017 ?? XR Chest Portable ? [id number] HISTORY: Chest Pain. ??Left-sided chest pain and cough. COMPARISON: None available. FINDINGS: One view of the chest obtained at 16:31 hrs demonstrates clear lungs bilaterally with no focal infiltrates. ??The heart size and pulmonary vascularity are normal. IMPRESSION: ??NO ACTIVE CARDIOPULMONARY DISEASE. Electronically signed by: Nas Mcmahan M.D. Interpreting Physician: ??DR ARGENIS TUCKER M.D. ??Read on: ??Jan 05 2017 ?? 4:46P Transcribed by: ??PSC ??On: Jan 05 2017 ??4:44P Approved Electronically by: ??GARRETT Whalen, DR MORE ??on: ??Jan 05 2017 ?? 4:44P Ordering DR: ?? Attending DR: SHANICE MENDIOLA Attending: ??SHANICE MENDIOLA Requesting: ??, Requesting Fax: ??-- Attending Fax: ??[phone] Attending ID: ??[id number] Requesting ID: ??[id number] [facility] Order #: ?? Procedure Note Miscellaneous, Not In File - 01/05/2017 XR Chest Portable [id number] Acc#: [id number] DATE OF EXAM: Jan 05 2017 XR Chest Portable [id number] HISTORY: Chest Pain. Left-sided chest pain and cough. COMPARISON: None available. FINDINGS: One view of the chest obtained at 16:31 hrs demonstrates clear lungs bilaterally with no focal infiltrates. The heart size and pulmonary vascularity are normal. IMPRESSION: NO ACTIVE CARDIOPULMONARY DISEASE. Electronically signed by: Nas Mcmahan M.D. Interpreting Physician: DR ARGENIS TUCKER M.D. Read on: Jan 05 2017 4:46P Transcribed by: PSC On: Jan 05 2017 4:44P Approved Electronically by: GARRETT Whalen, DR MORE on: Jan 05 2017 4:44P Ordering DR: Attending DR: SHANICE MENDIOLA Attending: SHANICE MENDIOLA Requesting: , Requesting Fax: -- Attending Attending ID: [id number] Requesting ID: [id number] [facility] Order #: us Physician No IMG XR PROCEDURES Edited Result - Final * Pro B-type natriuretic peptide (01/05/2017 4:39 PM CDT) NT-proBNP 139 10 - 150 pg/mL [facility] ([place]) Comment: Diagnosis of Congestive Heart Failure: ??Heart Failure Unlikely: All Ages ?Less than 300 pg/ml ??Heart Failure Possible: Less than 50Y ?? 300-450 pg/ml ?50-75 Y ? 300-900 pg/ml ?75-160Y ? 300-1800 pg/ml ?Heart Failure Likely: ?? Less than 50Y ?? Greater than 450 pg/ml ?50-75 Y ? Greater than 900 pg/ml ?75-160 Y ?Greater than 1,800 pg/ml ??Renal Failure: ?All Ages ?Greater than 1,200 pg/ml Current interpretive data was last revised on 2014. Blood specimen (specimen) 01/05/2017 4:39 PM CDT 01/05/2017 4:42 PM CDT us Gabbi Obrien LAB BLOOD ORDERABLES Fi nal Result [facility] ([place]) 1 [facility] Department [place] [address] * eGFR (01/05/2017 4:39 PM CDT) Pathologist [facility] eGFR >60 mL/min/1.7 3 m2 [facility] ([place]) Comment: Interpretive Data Reference Interval Normal ?>/= 90 mL/min/1.73m2 Mildly decreased* ? 60 - 89 mL/min/1.73m2 Mildly to moderately decreased ?45 - 59 mL/min/1.73m2 Moderately to severely decreased ??30 - 44 mL/min/1.73m2 Severely decreased ?15 - 29 mL/min/1.73m2 Kidney Failure ?< 15 ??mL/min/1.73m2 *Relative to young adult level If -Qat[place] multiply value by 1.16. Estimated glomerular filtration [...] was last reviewed 2015. Blood specimen (specimen) 01/05/2017 4:39 PM CDT 01/05/2017 4:42 PM CDT Gabbi Obrien LAB BLOOD ORDERABLES Fi nal Result [facility] ([place]) 1 [facility] Department [place] [address] * Comprehensive metabolic panel (01/05/2017 4:39 PM CDT) Sodium 142 135 - 145 mmol/L [facility] ([place]) Potassium 3.8 3.5 - 5.1 mmol/L [facility] ([place]) Chloride 103 97 - 110 mmol/L [facility] ([place]) CO2 24 22 - 32 mmol/L [facility] ([place]) Anion gap 15 8 - 16 mmol/L [facility] ([place]) Glucose 106 70 - 199 mg/dL [facility] ([place]) Comment: Interpretive Data Note:The glucose is assumed non fasting Fastin-99 mg/dL Random: ??70-199 mg/dL Either a fasting glucose > 126 mg/dL or a random glucose > 200 mg/dL plus symptoms is diagnostic of diabetes when confirmed on another day. Fasting values > 100 mg/dL but < 125 mg/dL are diagnostic of impaired fasting glucose. Current interpretive data was last revised on 2014. BUN 14.0 8.0 - 25.0 mg/dL [facility] ([place]) Creatinine 0.76 0.60 - 1.10 mg/dL [facility] ([place]) BUN/creat ratio 18 10 - 20 [facility] ([place]) Calcium 9.0 8.6 - 10.2 mg/dL [facility] ([place]) Protein, sr 7.1 6.0 - 8.4 g/dL [facility] ([place]) Albumin 4.2 3.6 - 5.0 g/dL [facility] ([place]) Alk phos 84 40 - 130 Units/L [facility] ([place]) ALT 23 5 - 45 Units/L [facility] ([place]) AST 20 10 - 40 Units/L [facility] ([place]) Bilirubin, total 0.3 <=1.2 mg/dL [facility] ([place]) Blood specimen (specimen) 01/05/2017 4:39 PM CDT 01/05/2017 4:42 PM CDT [employer] LAB BLOOD ORDERABLES Fi nal Result [facility] ([place]) 1 [facility] [place] [address] * Magnesium (01/05/2017 4:39 PM CDT) Magnesium 2.1 1.6 - 2.4 mg/dL [facility] ([place]) Blood specimen (specimen) 01/05/2017 4:39 PM CDT 01/05/2017 4:42 PM CDT [employer] LAB BLOOD ORDERABLES Fi nal Result Performing Organization Address [facility] Co de Phone Number [facility] ([place]) 1 [facility] [employer] [place] [address] * Troponin T (01/05/2017 4:39 PM CDT) Pathologist [facility] Troponin T <0.01 0.00 - 0.06 ng/mL [facility] ([place]) Comment: Interpretive Data Troponin table: ? Negative ? 0.00-0.06 ng/ml ? Indeterminate ?0.07-0.10 ng/ml ? Consistent with Myocardial Injury ?Greater than 0.10 ng/ml ?? Current interpretive data was last revised on 2014 Blood specimen (specimen) 01/05/2017 4:39 PM CDT 01/05/2017 4:42 PM CDT [facility] LAB BLOOD ORDERABLES Fi nal Result Performing Organization Address [facility] de Phone Number [facility] ([place]) 1 [facility] [employer] [place] [address] * Lipase (01/05/2017 4:39 PM CDT) Lipase 22 10 - 70 Units/L [facility] ([place]) Blood specimen (specimen) 01/05/2017 4:39 PM CDT 01/05/2017 4:42 PM CDT [facility] LAB BLOOD ORDERABLES Fi nal Result Performing Organization Address City/[facility] Co de Phone Number [facility] ([place]) 1 [facility] [employer] [place] [address] * Protime-INR (01/05/2017 4:39 PM CDT) PT 12.3 9.5 - 13.0 sec [facility] ([place]) INR 1.09 0.90 - 1.20 [facility] ([place]) Comment: Interpretive Data Recommended ranges for Protime INR: 2.0 - 3.0 Most indications for Warfarin therapy (e.g. Treatment of DVT, PE, bioprosthetic valve replacement, prophylaxis venous thrombosis, atrial fibrillation). 2.5 - 3.5 Mechanical mitral valve or dual mechanical mitral and Aortic valve replacement. Current Interpretive Data was last revised on 2014. Blood specimen (specimen) 01/05/2017 4:39 PM CDT 01/05/2017 4:42 PM CDT [employer] LAB BLOOD ORDERABLES Fi nal Result Performing Organization Address City/[facility]/ZIP Co de Phone Number [facility] ([place]) 1 [facility] [place] [address] * aPTT (01/05/2017 4:39 PM CDT) Pathologist [facility] aPTT 28.6 25.0 - 37.0 sec [facility] ([place]) Blood specimen (specimen) 01/05/2017 4:39 PM CDT 01/05/2017 4:42 PM CDT [employer] LAB BLOOD ORDERABLES Fi nal Result [facility] ([place]) 1 [facility] [place] [address] * Differential, auto (01/05/2017 4:39 PM CDT) Neutrophil pct 66.1 44.0 - 80.0 % [facility] ([place]) Imm gran pct 0.4 0.0 - 1.0 % [facility] ([place]) Lymphocyte pct 22.3 13.0 - 44.0 % [facility] ([place]) Monocyte pct 10.2 2.0 - 11.0 % [facility] ([place]) Eosinophil pct 0.4 0.0 - 6.0 % [facility] ([place]) Basophil pct 0.6 0.0 - 3.0 % [facility] ([place]) Neutrophil abs 5.65 1.60 - 7.00 K/cumm [facility] ([place]) Imm gran abs 0.03 0.00 - 0.20 K/cumm [facility] ([place]) Lymphocyte abs 1.90 0.50 - 4.30 K/cumm [facility] ([place]) Monocyte abs 0.87 0.10 - 1.00 K/cumm [facility] ([place]) Eosinophil abs 0.03 0.00 - 0.60 K/cumm [facility] ([place]) Basophil abs 0.05 0.00 - 0.30 K/cumm [facility] ([place]) Blood specimen (specimen) 01/05/2017 4:39 PM CDT 01/05/2017 4:42 PM CDT Gabbi Obrien LAB BLOOD ORDERABLES nal Result [facility] ([place]) 1 [facility] [place] [address] * CBC with auto differential (01/05/2017 4:39 PM CDT) WBC 8.53 3.80 - 9.80 K/cumm [facility] ([place]) RBC 4.29 3.90 - 5.00 M/cumm [facility] ([place]) Hgb 12.3 12.1 - 15.1 g/dL [facility] ([place]) Hct 36.9 36.1 - 44.3 % [facility] ([place]) MCV 86.0 80.0 - 100.0 fL [facility] ([place]) MCH 28.7 26.7 - 33.7 pg [facility] ([place]) MCHC 33.3 32.7 - 36.0 g/dL [facility] ([place]) RDW CV 13.2 11.5 - 14.6 % [facility] ([place]) Plt 335 140 - 440 K/cumm [facility] ([place]) MPV 8.8 8.0 - 12.0 fL [facility] ([place]) NRBC 0.0 0.0 - 0.0 % [facility] ([place]) NRBC abs 0.00 0.00 - 0.00 K/cumm [facility] ([place]) Blood specimen (specimen) 01/05/2017 4:39 PM CDT 01/05/2017 4:42 PM CDT Gabbirosio Armijo [facility] LAB BLOOD ORDERABLES Fi nal Result [facility] ([place]) 1 [facility] [place] [address] * DISCHARGE LABORATORY CUMULATIVE REPORT (01/05/2017 12:00 AM CDT) Narrative 01/05/2017 12:00 AM CDT Ordered by an unspecified provider. Historical Provider LAB BLOOD ORDERABLES Arlen l Result * ELECTROCARDIOGRAPHY (ECG) (01/05/2017) Provider Scanning ECG ORDERABLES Final Result documented in this encounter Visit Diagnoses Not on filedocumented in this encounter Care Teams National Stormwater Leader Relationship Specialty Start Date End Date Shaince Mendiola MD [address] [place] [address] PCP - General 06/09/16 documented as of this encounter
--- OUTSIDE RECORDS SUMMARY | 2024-03-18 05:03 | XMS_ITS | Encounter Summary ---
Author Organization [facility] Address [address] [place] [address] Phone Care Team Providers Care Extension Course Counselor Name Role Phone Newton Mendiola MD Primary Care Provider Reason for Referral * Consultation (Routine) - Closed Specialty Diagnoses / Procedures Referred By Contac t Referred To Contact Sleep Medicine Diagnoses LBBB (left bundle branch block) LV dysfunction Mixed hyperlipidemia Restless sleeper Sly Cade MD Phone: tel: fax: Isauro Lane MD [address] [place] [address] Phone: tel: fax: Referral ID Status Reason Start Date Expiration Date V isits Requested Visits Authorized [id number] Closed Specialty Services Required 06/25/2018 01/04/2020 1 1 Question Answer Please select the performing region: [facility] (All Locations) [[id number]] To provider: ISAURO LANE [[id number]] # of visits: 1 Reason for Visit * Reason Comments Follow-up Encounter Details Date Type Department Care Team (Late st Contact Info) Description 06/25/2018 12:00 PM CDT Office Visit [facility] Cardiology [address] [place] [address] Medical Office Building [address] [place] [address] Sly Cade MD [address] [place] [address] [address] [place] [address] LBBB (left bundle branch block) (Primary Dx); LV dysfunction; Mixed hyperlipidemia; Restless sleeper Social History Tobacco Use Types Packs/Day Years Used Date Smoking Tobacco: Former Smokeless Tobacco: Never Alcohol Use Standard Drinks/Week Comments No 0 (1 standard drink = 0.6 oz pur e alcohol) Comments Unknown Sex and Gender Information Value Date Recorded Sex Assigned at Not on file 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 Gender Identity Not on file Sexual Orientation Not on file documented as of this encounter Last Filed Vital Signs Vital Sign Reading Time Taken Comments Blood Pressure 127/81 06/25/2018 12:08 PM CDT Pulse 92 06/25/2018 12:08 PM CDT Temperature - - Respiratory Rate - - Oxygen Saturation 98% 06/25/2018 12:08 PM CDT Inhaled Oxygen Concentration - - Weight 89.4 kg (197 lb 1.9 oz) 06/25/2018 12:08 PM CDT Height 162.6 cm (5' 4 ) 06/25/2018 12:08 PM CDT Body Mass Index 33.84 06/25/2018 12:08 PM CDT documented in this encounter Patient Instructions * Patient Instructions* Michell Rodriguez, YEISON - 06/25/2018 12:00 PM CDT Patient Education Mediterranean Diet WHAT YOU NEED TO KNOW: What is a Mediterranean diet? A Mediterranean diet is a meal plan that includes foods that are commonly eaten in countries that border the [place] Sea. This meal plan may provide several healthbenefits. These include losing or maintaining weight, and decreasing blood pressure, blood sugar, and cholesterol levels. It may also help protect against certain health conditions such as heart disease, cancer, type 2 diabetes, and Alzheimer disease. Work with a dietitian to develop a meal plan that is right for you. What foods are included in the Mediterranean diet? ?? Include fruits and vegetables in each meal. Eat a variety of fresh fruits and vegetables. ?? Choose whole grains every day. These foods include whole-grain breads, pastas, and cereals. It also includes brown rice, quinoa, and millet. ?? Use unsaturated fats instead of saturated fats. Cook with olive or canola oil. Limit saturated fats, such as butter, margarine, and shortening. Saturated fat is an unhealthy fat that can increase your cholesterol levels. ?? Choose plant foods, poultry, and fish as your main sources of protein. ?? Eat plant-based foods that provide protein, such as lentils, beans, chickpeas, nuts, and seeds. Choose mostly plant-based foods in place of meat on most days of the week. ?? Eat protein foods high in omega-3 fats. Fish high in omega-3 fats include salmon, trout, and tuna. Include these types of fish 1 or 2 times each week. Limit fish high in mercury, such as shark, swordfish, tilefish, and caitlyn mackerel. [place]-3 fats are also found in walnuts and flaxseed. ?? Choose poultry (chicken or turkey) without skin instead of red meat. Red meat is high in saturated fat. Limit eggs and high-fat meats, such as garrett, sausage, and hot dogs. ?? Choose low-fat dairy foods such as nonfat or 1% milk, or low-fat almond, cashew, or soy milk. Other examples include low-fat cheese, yogurt, and cottage cheese. ?? Limit sweets. Limit your intake of high-sugar foods, such as soda, desserts, and candy. ?? Talk to your healthcare provider about alcohol. Studies have shown that moderate intake of wine may reduce the risk of heart disease. A moderate amount of wine is 1 serving of alcohol for women and 2 servings of alcohol for men each day. A serving of wine is 5 ounces. What else do I need to know if I follow the Mediterranean diet? ?? Include foods high in iron and vitamin C. Plant-based foods that are high in iron include spinach, beans, tofu, and artichoke. Eat a serving of vitamin C with any iron-rich food to help your body absorb more iron. Examples include oranges, strawberries, cantaloupe, broccoli, and yellow peppers. ?? Get regular physical activity. The Mediterranean diet will have the most benefit if you get regular physical activity. Get 30 minutes of physical activity at least 5 days a week. Choose physical activities that increase your heart rate. Examples include walking, hiking, swimming, and riding a bike. Ask your healthcare provider about the best exercise plan for you. CARE AGREEMENT: You have the right to help plan your care. Discuss treatment options with your caregivers to decidewhat care you want to receive. You always have the right to refuse treatment. The above informationis an lab aid only. It is not intended as medical advice for individual conditions or treatments. Talk to your doctor, nurse or pharmacist before following any medical regimen to see if it issafe and effective for you. ?? 2017 [employer] Information is for End User's use only and may not be sold, redistributed or otherwise used for commercial purposes. All illustrations and images included in CareNotes?? are the copyrighted property of [employer], [employer]. or [employer]. documented in this encounter Progress Notes * Sly Cade MD - 06/25/2018 12:00 AM CDT Date: 06/25/2018 Patient Name: MYLES SAUCEDA Date of : 1965 Date of Visit: 06/25/2018 HISTORY OF PRESENT ILLNESS: Today we are seeing Ms. Myles Sauceda, a delightful 53-year-old individual, who had been seen in the [place] [facility] in February. At that time, she had been aware for an entire day of a slow feeling in her heart and then it would be slow and then fast, and there were twinges of chest pain. She had this throbbing type of sensation which she had never had before. This lasted all day and all night and was seen in the ER with a negative workup. There have been no problems since. Otherwise, she has not had any chest discomfort. She really is not working out, although she is active. She walks her dogs twice a week. She does get short of breath walking up 3 flights of steps. Attimes she needs to take in a deep breath. She denies palpitations, dizzy or presyncopal spells. MEDICATIONS: As of this dictation include the followin. Baby aspirin. 2. Imdur 30 mg a day. 3. Losartan 25 mg a day. 4. Toprol XL 50 mg a day. PHYSICAL EXAMINATION: VITAL SIGNS: Her blood pressure today is 127/81, pulse 92. Weight 197. O2 sat 98%. NECK: There is no jugular venous distention with the patient at 45 degrees. The carotids are brisk and equal without bruit. CHEST: Clear. CARDIOVASCULAR: The apical impulse is not enlarged nor sustained and the excursion well preserved. There are no clicks or murmurs that I can hear. EXTREMITIES: There is no clubbing, cyanosis, or peripheral edema. LABORATORY DATA: She had a stress test 03/12/2018 which showed the followin. Low-normal LV function. 2. Normal LV size and morphology. 3. Motion compatible with a left bundle. 4. Negative for myocardial ischemia. This was a dobutamine echo. PROBLEM LIST: 1. Left bundle branch block. 2. Chest radiation for Hodgkin's. 3. Mild left ventricular dysfunction. 4. High cholesterol. 5. Statin allergy. 6. Positive family history with a father who has been stented, bypassed, and his problems all beganin his low 50s. PLANS: The plans will be: 1. Continue current therapy. 2. We are going to get a cholesterol profile. 3. We are going to send her back to Dr. Lane. 4. She promises to do a Mediterranean diet and other measures to lose weight. Otherwise, we are just going to continue with the current approach and we will see her back in a half a year. Further recommendations forthcoming. ELECTRONICALLY SIGNED - 06/28/2018 09:15 AM Sly Cade M.D., F.A.C.C. Professor, Medicine SN/bp cc: NEWTON MENDIOLA MD / documented in this encounter Plan of Treatment Scheduled Procedures Name Priority Associated Diagnoses Date/Ti me ESOPHAGOGASTRODUODENOSCOPY Nausea Colon cancer screening COLONOSCOPY Nausea Colon cancer screening Scheduled Referrals Name Type Priority Associated Diagnoses Order Schedule Ambulatory referral to Sleep Medicine Outpatient Referral Routine LBBB (left bundle branch block) LV dysfunction Mixed hyperlipidemia Restless sleeper 1 Occurrences starting 06/25/2018 until 12/25/2018 documented as of this encounter Results * (ABNORMAL) Lipid panel (06/25/2018 3:00 PM CDT) [facility] Cholesterol 159 30 - 199 mg/dL [...] last revised on 2017. Chol/HDL ratio 5 SUSIEDGAR JULIO Blood specimen (specimen) 06/25/2018 3:00 PM CDT 06/25/2018 3:00 PM CDT Narrative [facility] - 06/25/2018 4:07 PM CDT Sly Cade MD LAB BLOOD ORDERABLES Final Re sult [facility] [address] [facility]. Department of [employer] [place] [address] documented in this encounter Visit Diagnoses Diagnosis LBBB (left bundle branch block)- Primary Other left bundle branch block LV dysfunction Left heart failure Mixed hyperlipidemia Restless sleeper LBBB (left bundle branch block) Other left bundle branch block LV dysfunction Left heart failure Mixed hyperlipidemia documented in this encounter Historical Medications * This list may reflect changes made after this encounter. diclofenac DR (VOLTAREN) 50 mg EC tablet Take 50 mg by mouth 2 (two) times a day 0 04/06/2018 05/20/2020 azithromycin (ZITHROMAX) 250 mg tablet 06/07/2018 05/20/2020 added in this encounter Care Teams Extension Course Counselor Relationship Specialty Start Date End Date Newton Mendiola MD [address] [facility] [address] [place] [address] PCP - General 06/09/16 documented as of this encounter
--- OUTSIDE RECORDS SUMMARY | 2024-03-18 05:03 | XMS_ITS | Encounter Summary ---
Author Organization [facility] Address [address] [place] [address] Care Team Providers Care Digital Project Coordinator Name Role Phone Newton Mendiola MD Primary Care Provider [phone] Encounter Details Date Type Department Care Team (Late st Contact Info) Description 07/31/2016 Orders Only [facility] [address] [place] [address] Sly Cade MD [address] [place] [address] Social History Tobacco Use Types Packs/Day Years Used Date Smoking Tobacco: Never Assessed Comments Unknown Sex and Gender Information Value Date Recorded Sex Assigned at Not on file Legal 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 Gender Identity Not on file Sexual Orientation Not on file documented as of this encounter Plan of Treatment Scheduled Procedures Name Priority Associated Diagnoses Date/Ti me ESOPHAGOGASTRODUODENOSCOPY Nausea Colon cancer screening COLONOSCOPY Nausea Colon cancer screening documented as of this encounter Procedures Procedure Name Priority Date/Time Associated Diagnosis Comments D-DIMER, QUANTITATIVE Routine 07/31/2016 2:17 PM CDT documented in this encounter Results * D-dimer, quantitative (07/31/2016 2:17 PM CDT) D-dimer 0.38 0.00 - 0.42 mcg/mL [facility] Comment: Interpretive Data A cut-off value of 0.50 mcg/mL FEU has a negative ??predictive value regarding the exclusion of thrombosis of 95-100%. Current interpretive data was last revised on 2013. Blood specimen (specimen) 07/31/2016 2:17 PM CDT 07/31/2016 2:56 PM CDT us Sly Cade MD LAB BLOOD ORDERABLES Final Re sult Performing Organization Address City/State/ZIP Co nv Phone Number [facility] [address] [address] Department [place] [address] documented in this encounter Visit Diagnoses Not on filedocumented in this encounter Care Teams Digital Project Coordinator Relationship Specialty Start Date End Date Newton Mendiola MD [address] [address] PCP - General 06/09/16 documented as of this encounter
--- OUTSIDE RECORDS SUMMARY | 2024-03-18 05:03 | XMS_ITS | Encounter Summary ---
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 5:30 AM APICULTURE TEACHER) Sodium 146(H) 135 - 145 mmol/L [facility] ([place]) Potassium, pl 3.9 3.3 - 4.9 mmol/L [facility] ([place]) CO2 22 22 - 32 mmol/L [facility] ([place]) BUN 19 8 - 25 mg/dL [facility] ([place]) Glucose 141 70 - 199 mg/dL [facility] ([place]) [...] Current interpretive data was last revised 2017. Creatinine 0.61 0.60 - 1.10 mg/dL [facility] ([place]) Calcium 9.5 8.5 - 10.3 mg/dL [facility] ([place]) Chloride 106 97 - 110 mmol/L [facility] ([place]) Albumin 4.5 3.5 - 5.0 g/dL [facility] ([place]) AST 27 10 - 45 Units/L [facility] ([place]) ALT 43 7 - 45 Units/L [facility] ([place]) Alk phos 85 40 - 130 Units/L [facility] ([place]) Bilirubin, total 0.2 0.1 - 1.2 mg/dL [facility] ([place]) Protein, pl 7.7 6.5 - 8.5 g/dL [facility] ([place]) Anion gap 18(H) 2 - 15 mmol/L [facility] ([place]) Blood specimen (specimen) 02/28/2017 5:30 AM APICULTURE TEACHER 02/28/2017 5:33 AM APICULTURE TEACHER Narrative [facility] ([place]) - 02/28/2017 6:10 AM APICULTURE TEACHER us Yahaira Sullivan MD LAB BLOOD ORDERABLES Final Result Performing Organization Address [facility] de Phone Number [facility] ([place]) 1 [facility] [place] [address] * Ethanol (02/28/2017 5:30 AM APICULTURE TEACHER) Ethanol <10 <=10 mg/dL [facility] ([place]) Comment: Interpretive Data Normal: ??Less than 10 mg/dL = No Ethanol detected For medical purposes Current interpretive data was last revised on 2014. Blood specimen (specimen) 02/28/2017 5:30 AM APICULTURE TEACHER 02/28/2017 5:33 AM APICULTURE TEACHER Narrative [facility] ([place]) - 02/28/2017 6:10 AM APICULTURE TEACHER us Yahaira Sullivan MD LAB BLOOD ORDERABLES Final Result Performing Organization Address [facility] Co de Phone Number [facility] ([place]) 1 [facility] [place] [address] * (ABNORMAL) CBC with auto differential (02/28/2017 5:30 AM APICULTURE TEACHER) WBC 8.08 3.80 - 9.80 K/cumm [facility] ([place]) RBC 4.26 3.90 - 5.00 M/cumm [facility] ([place]) Hgb 12.4 12.1 - 15.1 g/dL [facility] ([place]) Hct 37.1 36.1 - 44.3 % [facility] ([place]) MCV 87.1 80.0 - 100.0 fL [facility] ([place]) MCH 29.1 26.7 - 33.7 pg [facility] ([place]) MCHC 33.4 32.7 - 36.0 g/dL [facility] ([place]) RDW CV 13.9 11.5 - 14.6 % [facility] ([place]) RDW SD 44.6 38.0 - 56.6 fL [facility] ([place]) Plt 453(H) 140 - 440 K/cumm [facility] ([place]) MPV 8.5 8.0 - 12.0 fL [facility] ([place]) NRBC 0.0 0.0 - 0.0 % [facility] ([place]) NRBC abs 0.00 0.00 - 0.00 K/cumm [facility] ([place]) Blood specimen (specimen) 02/28/2017 5:30 AM APICULTURE TEACHER 02/28/2017 5:33 AM APICULTURE TEACHER Narrative [facility] ([place]) - 02/28/2017 5:35 AM APICULTURE TEACHER Yahaira Sullivan MD LAB BLOOD ORDERABLES Final Result [facility] ([place]) 1 [facility] Department [place] [address] * DISCHARGE LABORATORY CUMULATIVE REPORT (02/28/2017 12:00 AM APICULTURE TEACHER) Narrative 02/28/2017 12:00 AM APICULTURE TEACHER Ordered by an unspecified provider. Historical Provider LAB BLOOD ORDERABLES Arlen l Result documented in this encounter Visit Diagnoses Diagnosis Mild single current episode of major depressive disorder (HCC)- Primary documented in this encounter Administered Medications Inactive Administered Medications - up to 3 most recent administrations Medication Order MAR Action Action Date Dose Rate Site ibuprofen (ADVIL,MOTRIN) tablet 800 mg 800 mg, oral, Once, On 02/28/17 at 0700, For 1 dose Given 02/28/2017 6:52 AM APICULTURE TEACHER 800 mg documented in this encounter Active and Recently Administered Medications Times are shown in APICULTURE TEACHER. Scheduled Medication Order 02/26/2017 02/27/2017 02/28/2017 ibuprofen (ADVIL,MOTRIN) tablet 800 mg (COMPLETED) 800 mg, oral, Once, On 02/28/17 at 0700, For 1 dose 0652 (Given - Provid er: Barbara Lima RN) documented in this encounter Care Teams Clothing Busheler Relationship Specialty Start Date End Date Newton Mendiola MD [address] [address] PCP - General 06/09/16 documented as of this encounter
--- OUTSIDE RECORDS SUMMARY | 2024-03-18 05:03 | XMS_ITS | Encounter Summary ---
Author Organization [facility] Address [address] [place] [address] Phone Care Team Providers Care Billet Heater Operator Name Role Phone Shanice Mendiola MD Primary Care Provider [phone] Reason for Referral * Diagnostic Imaging (Routine) - Closed Specialty Diagnoses / Procedures Referred By Contac t Referred To Contact Diagnoses LBBB (left bundle branch block) Adverse effect of radiation, sequela LV dysfunction Palpitations Procedures Stress Echo Pharmacologic Jason Cade MD Phone: tel: fax: [facility] Referral ID Status Reason Start Date Expiration Date Visits Re quested Visits Authorized [id number] Closed 02/26/2018 04/12/2018 1 1 NE ENGINE MACHINIST Reason for Visit * Reason Comments Follow-up Encounter Details Date Type Department Care Team (Late st Contact Info) Description 02/19/2018 10:40 AM MARINE ENGINE MACHINIST Office Visit [facility] Medical Office Building [address] [place] [id number] Jason Cade MD [address] [place] [address] [address] [place] [address] LBBB (left bundle branch block) (Primary Dx); Adverse effect of radiation, sequela; LV dysfunction; Palpitations Social History Tobacco Use Types Packs/Day Years Used Date Smoking Tobacco: Former Smokeless Tobacco: Never Comments Unknown Sex and Gender Information Value Date Recorded Sex Assigned at Not on file Legal Sex Female 7:55 AM MARINE ENGINE MACHINIST Gender Identity Not on file Sexual Orientation Not on file documented as of this encounter Last Filed Vital Signs Vital Sign Reading Time Taken Comments Blood Pressure 119/76 02/19/2018 10:43 AM MARINE ENGINE MACHINIST Pulse 54 02/19/2018 10:43 AM MARINE ENGINE MACHINIST Temperature - - Respiratory Rate - - Oxygen Saturation 97% 02/19/2018 10:43 AM MARINE ENGINE MACHINIST Inhaled Oxygen Concentration - - Weight 92 kg (202 lb 12.8 oz) 02/19/2018 10:43 A M MARINE ENGINE MACHINIST Height 162.6 cm (5' 4 ) 02/19/2018 10:43 AM MARINE ENGINE MACHINIST Body Mass Index 34.81 02/19/2018 10:43 AM MARINE ENGINE MACHINIST documented in this encounter Progress Notes * Jason Cade MD - 02/19/2018 12:00 AM CST Date: 02/19/2018 Patient Name: KATY SAUCEDA Date of : 1965 Date of Visit: 02/19/2018 HISTORY OF PRESENT ILLNESS: Today, we are seeing Mrs. Katy Sauceda, and I have learned that since she has been gaining weightat a significant rate, approximately 12 pounds over the past several months, she has become progressively short of breath. She is fine on a level if she takes her time, but if she has to exert on a long walk or walking up steps, her back will begin to hurt and she gets dyspnea. Otherwise, she is not really having any chest discomfort per se. She does not really sleep that great. We reviewed that she had been seen by Dr. Newman, who wanted to do an in- house study on her sleep apnea, but the insurance company nixed it. We will readdress this, especially since both parents have had sleep apnea. She denies any palpitations, dizzy or presyncopal spells. MEDICINES: 1. Baby aspirin. 2. Imdur 30 mg a day. 3. Valsartan 25 mg. 4. Toprol XL 50 mg a day. PHYSICAL EXAMINATION: VITAL SIGNS: Stable with the blood pressure 119/76. NECK: There is no jugular venous distention with the patient at 45 degrees. The carotids are slightly decreased in upstroke. CARDIAC: There is a soft left ventricular outflow tract murmur. I do not feel the apical impulse that well. EXTREMITIES: There is no clubbing, cyanosis or peripheral edema. LABORATORY DATA: This individual had a heart catheterization in July 2016, and we both reviewed the films just now and everything looked very good, although she is left dominant. We did an echo in May, which showed mild LV dysfunction, also compatible with a left bundle with an ejection fraction of 50%, but she is developing mild aortic stenosis. I can hear the LV outflow tract murmur today. IMPRESSION: Mrs. Sauceda is doing well. She has developed shortness of breath with above- average exertion, but this is concomitant with a 12 pounds weight gain. It could be that she has developed further issues, but it also could be simply related to the change in body habitus. Furthermore, I am pretty certain she has sleep apnea and we are going to get in touch with Dr. Newman about this as well. PLAN: 1. Continue current therapy. 2. Return visit 4 months. 3. Dobutamine echo. 4. The patient absolutely promises to lose weight. 5. Further recommendations will be forthcoming. ELECTRONICALLY SIGNED - 02/22/2018 04:41 PM Jason Cade M.D., F.A.C.C. Professor, Medicine SN/RB cc: SHANICE MENDIOLA MD / NE ENGINE MACHINIST documented in this encounter Plan of Treatment Scheduled Procedures Name Priority Associated Diagnoses Date/Ti me ESOPHAGOGASTRODUODENOSCOPY Nausea Colon cancer screening COLONOSCOPY Nausea Colon cancer screening documented as of this encounter Procedures Procedure Name Priority Date/Time Associated Diagnosis Comments STRESS ECHO PHARMACOLOGIC W DOPPLER/CF W CONTRAST Routine 03/12/2018 12:30 PM MARINE ENGINE MACHINIST LBBB (left bundle branch block) Adverse effect of radiation, sequela LV dysfunction Palpitations documented in this encounter Results * STRESS ECHO PHARMACOLOGIC W DOPPLER/CF W CONTRAST (03/12/2018 12:30 PM MARINE ENGINE MACHINIST) Anatomical Region Laterality Modality Ultrasound 03/12/2018 11:1 5 AM MARINE ENGINE MACHINIST Narrative 03/12/2018 1:13 PM MARINE ENGINE MACHINIST Patient name: Katy Sauceda Date of test: 03/12/2018 Hospital #: [id number] ?Location: [facility] Interpreted by: Fermín Jerez MD Multi Township Assessor: Carmita Franks RDCS RN: Paris Snell RN Reason for Test: LBBB, LV dysfunction Study quality: Technically good Referring Physician: JASON CADE MD Contrast Agent: 1.5 ml Optison Administered, (1.5 ml wasted). LV Global Function: Low Normal left ventricular systolic function. Baseline Echo Comments: Normal LV+RV morphology and low normal LV function. LBBB septal motion Doppler/CF Comments: No significant MR, AR, TR, or SD recorded. Baseline HR: 75 Baseline BP: 143/80 Conduction Defects: LBBB Resting ECG Comments: sr Medications: asa,isosorbide,losartan,metoprolol Meds held: all Intravenous dobutamine was infused to a maximal dose ??40 micro-g/Kg/min. Atropine: 0 mg. ?Other Med: Peak HR: 149 Peak BP: 153/68 Post-Exercise Comments: Marked increase in the LV and RV contractility, LBBB septal motion exaggerated, no ischemic segmental wall motion abnormalities. Test terminated: ??Completion of protocol Stress ECG Comments: ??unable to interpret due to BBB, rare vpd Impression: Baseline: Normal LV+RV morphology and low normal LV function. LBBB septal motion. No significant MR, AR, TR, or SD recorded. CONTRAST ENHANCEMENT WAS EMPLOYED. Marked increase in the LV and RV contractility, LBBB septal motion exaggerated, no obvious ischemic segmental wall motion abnormalities. Maximal Dobutamine Stress Echocardiogram, NEGATIVE for myocardial ischemia. Confirmed on ??03/12/2018 - 13:13:44 by Fermín Jerez MD By signing this report, the attending analytical chemist certifies that he or she has personally supervised and interpreted the echocardiogram and has reviewed and or edited and agrees with the written comments contained within the report. Procedure Note Fermín Jerez MD - 03/12/2018 Patient name: Katy Sauceda Date of test: 03/12/2018 Hospital #: [id number] Location: [facility] Interpreted by: Fermín Jerez MD Multi Township Assessor: Carmita Franks RDCS RN: Paris Snell RN Reason for Test: LBBB, LV dysfunction Study quality: Technically good Referring Physician: JASON CADE MD Contrast Agent: 1.5 ml Optison Administered, (1.5 ml wasted). LV Global Function: Low Normal left ventricular systolic function. Baseline Echo Comments: Normal LV+RV morphology and low normal LV function. LBBB septal motion Doppler/CF Comments: No significant MR, AR, TR, or SD recorded. Baseline HR: 75 Baseline BP: 143/80 Conduction Defects: LBBB Resting ECG Comments: sr Medications: asa,isosorbide,losartan,metoprolol Meds held: all Intravenous dobutamine was infused to a maximal dose 40 micro-g/Kg/min. Atropine: 0 mg. Other Med: Peak HR: 149 Peak BP: 153/68 Post-Exercise Comments: Marked increase in the LV and RV contractility, LBBB septal motion exaggerated, no ischemic segmental wall motion abnormalities. Test terminated: Completion of protocol Stress ECG Comments: unable to interpret due to BBB, rare vpd Impression: Baseline: Normal LV+RV morphology and low normal LV function. LBBB septal motion. No significant MR, AR, TR, or SD recorded. CONTRAST ENHANCEMENT WAS EMPLOYED. Marked increase in the LV and RV contractility, LBBB septal motion exaggerated, no obvious ischemic segmental wall motion abnormalities. Maximal Dobutamine Stress Echocardiogram, NEGATIVE for myocardial ischemia. Confirmed on 03/12/2018 - 13:13:44 by Fermín Jerez MD By signing this report, the attending analytical chemist certifies that he or she has personally supervised and interpreted the echocardiogram and has reviewed and or edited and agrees with the written comments contained within the report. Jason Cade MD CV ECHO PROCEDURES Final Resu lt documented in this encounter Visit Diagnoses Diagnosis LBBB (left bundle branch block)- Primary Other left bundle branch block Adverse effect of radiation, sequela LV dysfunction Left heart failure Palpitations documented in this encounter Historical Medications * This list may reflect changes made after this encounter. escitalopram (LEXAPRO) 5 mg tablet Take 5 mg by mouth daily. 1 12/31/2017 05/20/2020 added in this encounter Care Teams Billet Heater Operator Relationship Specialty Start Date End Date Shanice Mendiola MD [address] [id number] [place] [address] PCP - General 06/09/16 documented as of this encounter
--- OUTSIDE RECORDS SUMMARY | 2024-03-18 05:03 | XMS_ITS | Encounter Summary ---
Author Organization [facility] Healthcare Address [address] [place] [address] Care Team Providers Care Coal Yard Supervisor Name Role Phone Newton Mendiola MD Primary Care Provider [phone] Encounter Details Date Type Department Care Team (Latest Contact Info) Description 07/31/2016 2:07 PM CDT - 07/31/2016 11:59 PM CDT Hospital Encounter [facility] OP INTERIM [phone] Sly Cade MD [address] [facility] [address] [place] [address] Discharge Disposition: Discharge to home or self care Social History Tobacco Use Types Packs/Day Years Used Date Smoking Tobacco: Never Assessed Comments Unknown Sex and Gender Information Value Date Recorded Sex Assigned at Not on file Legal Sex Female 7:55 AM NEWS ASSISTANT Gender Identity Not on file Sexual [...] on filedocumented in this encounter Care Teams Coal Yard Supervisor Relationship Specialty Start Date End Date Newton Mendiola MD [address] [address] PCP - General 06/09/16 documented as of this encounter
--- OUTSIDE RECORDS SUMMARY | 2024-03-18 05:03 | XMS_ITS | Encounter Summary ---
Author Organization [facility] Healthcare Address [address] [place] [address] Care Team Providers Care Portal Architect Name Role Phone Newton Mendiola MD Primary Care Provider [phone] Encounter Details Date Type Department Care Team (Latest Contact Info) Description 07/02/2016 7:45 AM CDT - 07/02/2016 11:59 PM CDT Hospital Encounter [facility] OP INTERIM [phone] Newton Mendiola MD [address] [address] Discharge Disposition: Discharge to home or self care Social History Tobacco Use Types Packs/Day Years Used Date Smoking Tobacco: Never Assessed Comments Unknown Sex and Gender Information Value Date Recorded Sex Assigned at Not on file Legal Sex Female 7:55 AM GLOVE CLEANER Gender Identity Not on file Sexual [...] on filedocumented in this encounter Care Teams Portal Architect Relationship Specialty Start Date End Date Newton Mendiola MD [address] [address] PCP - General 06/09/16 documented as of this encounter
== END 2024-03-11 05:58 | disposition home or self-care (01) ==
PROVIDERS: Emergency Medicine; Physician Assistant; Emergency Provider Emergency Medicine; PCP Internal Medicine
DX: J06.9 Acute upper respiratory infection, unspecified (principal); R07.89 Other chest pain; E04.1 Nontoxic single thyroid nodule; R00.0 Tachycardia, unspecified; Z20.822 Contact with and (suspected) exposure to COVID-19; F32.A Depression, unspecified; K21.9 Gastro-esophageal reflux disease without esophagitis; I44.7 Left bundle-branch block, unspecified
CPT/HCPCS: 36415; 71046; 71275; 80053; 83690; 83735; 83880; 84484; 85025; 85610; 85730; 87637; 93005; 96360; 99284; A9270; J7030; Q9967